=== PATIENT | female | born 1960 | race Caucasian/White ===

== ENCOUNTER 2019-03-14 19:26 | Inpatient (IN) ==
[2019-03-14] MEDS ORDERED: ALBUT/IPRATROP 3MG/0.5MG NEB 3 ML VIAL NEB ONE (19:37)
--- NOTE | 2019-03-14 20:30 | XRay Report ---
XR chest 1V portable CLINICAL HISTORY: Difficult chest pain COMPARISON STUDY: 03/13/2019 FINDINGS: The heart remains enlarged. There is mild elevation of the interstitium, similar to prior s tudies suggesting mild chronic pulmonary vascular congestion. There is no lobar consolidation.[ No si gnificant pleural effusions are visualized IMPRESSION: Cardiomegaly and mild chronic pulmonary vascular congestion. No evidence of acute parench ymal consolidation. Electronically signed by: Abner Tiwari M.D. 03/14/2019 8:27 PM
[2019-03-14 20:32] LABS: Basophils # (auto) 0.02 K/uL (0-0.2); Basophils % (auto) 0.3 %; Eosinophils # (auto) 0.18 K/uL (0-0.5); Eosinophils % (auto) 2.6 %; Hematocrit (blood only) 42.2 % (37-47); Hemoglobin 12.7 g/dL (12.0-16.0); Immature Granulocytes # (auto) 0.02 K/uL (0.00-0.02); Immature Granulocytes % (auto) 0.3 %; Lymphocytes # (auto) 0.58 K/uL (1.2-3.4); Lymphocytes % (auto) 8.4 %; Mean Corpuscular Hgb Conc 30.1 g/dL (32-36); Mean Corpuscular Volume 93.4 fL (80-100); Mean Platelet Volume 10.1 fL (7.4-10.4); Monocytes % (auto) 5.8 %; Neutrophils # (auto) 5.74 K/uL (1.4-6.5); Neutrophils % (auto) 82.6 %; Platelet Count 176 K/uL (130-400); RDW Coefficient of Variation 14.5 % (11.5-14.5); RDW Standard Deviation 49.4 fL (36.4-46.3); Red Blood Count 4.52 M/uL (4.2-5.4); White Blood Count 6.94 K/uL (4.8-10.8)
[2019-03-14 20:33] LABS: HCO3 ABG 42 mmol/L (19-24); Oxygen Saturation ABG 97.2 % (90-95); PCO2 ABG 91 mmHg (35-46); PO2 ABG 107 mm/Hg (80-95); pH ABG 7.29 (7.35-7.45)
[2019-03-14 20:35] LABS: Allen Test POS (Pos)
[2019-03-14 20:43] LABS: Appearance Urine Clear (Clear); Bilirubin Urine Negative (Negative); Blood Urine Negative (Negative); Color Urine Yellow; Glucose Urine UA Negative (Negative); Ketones Urine Negative (Negative); Leukocyte Esterase Urine Negative (Negative); Nitrite Urine Negative (Negative); Protein Urine Negative (Negative); Specific Gravity Urine 1.013 (1.000-1.030); Urobilinogen Urine Negative (Negative)
[2019-03-14] MEDS ORDERED: methylPREDNISolone 125 MG/2 ML VIAL IV STA (20:43)
[2019-03-14] MEDS ORDERED: MAGNESIUM SULFATE / D5W 1 GM/100 ML BAG IV ONE (20:43)
[2019-03-14] MEDS ORDERED: FUROSEMIDE 40 MG/4 ML VIAL IV STA (20:44)
[2019-03-14 20:45] LABS: Alanine Aminotransferase 12 U/L (12-78); Albumin Level 2.6 gm/dl (3.4-5.0); Anion Gap 0 (3-11); Aspartate Aminotransferase 10 U/L (15-37); BUN Creatinine Ratio 12.6 (10-20); Blood Urea Nitrogen 10 mg/dl (7-18); Calcium 8.3 mg/dl (8.5-10.1); Carbon Dioxide 40 mmol/L (21-32); Chloride 98 mmol/L (98-107); Est GFR (African American) 97.3; Est GFR (Non-African American) 83.9; Glucose 163 mg/dl (70-99); Potassium 4.1 mmol/L (3.5-5.1); Sodium 138 mmol/L (136-145)
[2019-03-14 20:47] LABS: Prothrombin Time 10.1 Seconds (9.0-12.0)
[2019-03-14 20:50] LABS: Albumin Globulin Ratio 0.6 (0.9-2); Alkaline Phosphatase 159 U/L (45-117); Bilirubin,Total 0.4 mg/dl (0.2-1); Creatine Kinase 25 U/L (26-192); Creatine Kinase MB < 1.0 ng/ml (0.5-3.6); Globulin 4.1 gm/dl (2.5-4.0); Total Protein 6.7 gm/dl (6.4-8.2); Troponin I < 0.015 ng/ml (0-0.045)
--- NOTE | 2019-03-15 00:25 | Emergency Department Note ---
Entered by Krista Bañuelos acting as a scribe for History of Present Illness General Chief complaint: Lethargic Stated complaint: seizure Source: patient Mode of arrival: EMS History of Present Illness Onset (ago): unknown (TERADATA ARCHITECT) Location: left and right (generalized) Pain Consistency: + now resolved Quality: + other (shaking) Associated symptoms: + shortness of breath The patient is a 58 year old female who presents to the Emergency Room with complaints of a resolved episode of shaking that occurred TERADATA ARCHITECT. The patient thinks she was having a seizure. She also complains of shortness of breath. The patient does not normally wear oxygen but her O2 sat was 85% upon arrival of EMS. Home Medications Home Medications Medication Instructions Recorded Confirmed Type metoprolol tartrate 50 mg tablet 50 mg PO DAILY tab 06/26/18 03/14/19 History ondansetron HCl 4 mg tablet 4 mg PO Q6H PRN tab 06/26/18 03/14/19 History phenytoin sodium extended 100 mg 200 mg PO .q am cap 06/26/18 03/14/19 History capsule phenytoin sodium extended 100 mg 300 mg PO .q pm cap 06/26/18 03/14/19 History capsule topiramate 100 mg tablet 100 mg PO .q am tab 06/26/18 03/14/19 History topiramate 200 mg tablet 200 mg PO .q hs tab 06/26/18 03/14/19 History metformin 500 mg tablet 500 mg PO BID 12/04/18 03/14/19 History ciprofloxacin 500 mg tablet 500 mg PO BID #60 tab 01/04/19 03/14/19 Rx aspirin [Aspir-81] 81 mg PO DAILY 03/13/19 03/14/19 History furosemide [Lasix] 40 mg PO QAM 03/13/19 03/14/19 History nystatin 1 appln TOP QID #15 gm 03/13/19 03/14/19 Rx Allergies Allergy/AdvReac Type Severity Reaction Status Date / Time ceftaroline fosamil Allergy Mild ITCHING Verified 03/12/19 11:03 HANDS latex Allergy Mild Verified 03/12/19 11:03 SABINE Inhibitors Allergy Unknown Verified 03/12/19 11:03 codeine Allergy Unknown Verified 03/12/19 11:03 erythromycin base Allergy Unknown Verified 03/12/19 11:03 Iodinated Contrast- Oral and Allergy Unknown ` Verified 03/12/19 11:03 IV Dye Penicillins AdvReac Mild MAKES HER Verified 03/12/19 11:03 "FUNNY IN THE HEAD" Past Med/Surg History Medical History MSSA (methicillin susceptible Staphylococcus aureus) (Acute) ASCVD (arteriosclerotic cardiovascular disease) (Chronic) Asthma (Chronic) Cardiomyopathy (Chronic) Cellulitis (Chronic) Cor pulmonale (Chronic) Diabetes 1.5, managed as type 2 (Chronic) Diverticulosis (Chronic) Encephalopathy (Chronic) GERD (gastroesophageal reflux disease) (Chronic) Hyperlipidemia LDL goal <100 (Chronic) Left bundle branch block (LBBB) (Chronic) Lymphedema (Chronic) Obesity (Chronic) Rectal polyp (Chronic) Seizure (Chronic) Sleep apnea (Chronic) Systolic CHF (Chronic) Thyroid nodule (Chronic) Tubal ligation status (Chronic) Surgical History H/O sinus surgery (Chronic) Social History Feels Safe at Home: Yes Smoking Status: Never smoker Review of Systems See HPI for pertinent positives & negatives. and A total of 10 systems reviewed and were otherwise negative Physical Exam Vital Signs Vital Signs - 24 hr 03/14/19 19:38 03/14/19 19:51 03/14/19 20:05 Temperature 36.4 C L Temperature Source Oral Sepsis Recent Fever Within 48 Hours No Sepsis New/Unexplained Change in Mental Status No Sepsis Action Taken by Nursing No Action Required Pulse Rate 69 64 Pulse Rate [Apical] Pulse Rate from SpO2 Sensor Pulse Rhythm Regular Regular Pulse Strength Normal Respiratory Rate 20 22 18 Respiratory Effort / Characteristics Non-Labored Spontaneous Non-Labored Spontaneous Respiratory Depth Normal Respiratory Pattern Regular Blood Pressure 147/52 H Blood Pressure [Right Arm] Blood Pressure Mean 83 Blood Pressure Mean [Right Arm] Blood Pressure Position Sitting Pulse Oximetry 100 100 100 Oxygen Delivery Method Nasal Cannula Nasal Cannula Nasal Cannula Oxygen Flow Rate 2 2 3 Fraction of Inspired Oxygen 03/14/19 21:05 03/14/19 21:41 03/14/19 22:00 Temperature Temperature Source Sepsis Recent Fever Within 48 Hours Sepsis New/Unexplained Change in Mental Status Sepsis Action Taken by Nursing Pulse Rate 83 Pulse Rate [Apical] 83 86 Pulse Rate from SpO2 Sensor Pulse Rhythm Pulse Strength Respiratory Rate 18 23 22 Respiratory Effort / Characteristics Non-Labored Spontaneous Respiratory Depth Shallow Respiratory Pattern Regular Blood Pressure Blood Pressure [Right Arm] 152/80 H Blood Pressure Mean Blood Pressure Mean [Right Arm] 104 Blood Pressure Position Pulse Oximetry 100 98 98 Oxygen Delivery Method Nebulizer Nasal Cannula Oxygen Flow Rate 2 Fraction of Inspired Oxygen 35 03/14/19 22:01 03/14/19 23:01 03/14/19 23:36 Temperature Temperature Source Sepsis Recent Fever Within 48 Hours Sepsis New/Unexplained Change in Mental Status Sepsis Action Taken by Nursing Pulse Rate 88 91 H 90 Pulse Rate [Apical] Pulse Rate from SpO2 Sensor 89 91 H Pulse Rhythm Pulse Strength Respiratory Rate 20 17 17 Respiratory Effort / Characteristics Non-Labored Spontaneous Respiratory Depth Normal Respiratory Pattern Regular Blood Pressure 164/89 H Blood Pressure [Right Arm] Blood Pressure Mean 114 138 Blood Pressure Mean [Right Arm] Blood Pressure Position Pulse Oximetry 98 96 93 Oxygen Delivery Method BiPAP BiPAP Oxygen Flow Rate Fraction of Inspired Oxygen 35 03/15/19 00:01 Temperature Temperature Source Sepsis Recent Fever Within 48 Hours Sepsis New/Unexplained Change in Mental Status Sepsis Action Taken by Nursing Pulse Rate 89 Pulse Rate [Apical] Pulse Rate from SpO2 Sensor 89 Pulse Rhythm Pulse Strength Respiratory Rate 14 Respiratory Effort / Characteristics Respiratory Depth Respiratory Pattern Blood Pressure 147/74 H Blood Pressure [Right Arm] Blood Pressure Mean 98 Blood Pressure Mean [Right Arm] Blood Pressure Position Pulse Oximetry 94 Oxygen Delivery Method BiPAP Oxygen Flow Rate Fraction of Inspired Oxygen GENERAL: Awake, alert, well-appearing, in no acute distress HENT: Normocephalic, atraumatic. Oropharynx unremarkable. EYES: Normal conjunctiva. Sclera non-icteric. NECK: Supple. No nuchal rigidity. FROM. No JVD. RESPIRATORY: Clear to auscultation. Distant lung sounds. CARDIAC: Regular rate, normal rhythm. Extremities warm and well perfused. Pulses equal. ABDOMEN: Morbidly obese. Soft, non-distended. No tenderness to palpation. No rebound or guarding. No masses. RECTAL: Deferred. MUSCULOSKELETAL: Chest examination reveals no tenderness. The back is symmetrical on inspection without obvious abnormality. There is no CVA tenderness to palpation. No joint edema. LOWER EXTREMITIES: Calves are equal size bilaterally and non-tender. No edema. No discoloration. NEURO: Normal sensorium. No sensory or motor deficits noted. SKIN: No rash or jaundice noted. Yeast like rash bilaterally underneath breasts. Course 1934: Past medical records reviewed. The patient was evaluated in room B12B. A complete history and physical exam was performed. 2144: I discussed the patient's case with Dr. Conroy, [facility] Hospitalist. He agrees to evaluate the patient for further management and care. Consultations Consultation #1: I discussed the patient's case with Dr. Conroy [facility] Hospitalist. He agrees to evaluate the patient for further management and care. Time: 21:45 Administered Medications Discontinued Medications Albuterol (Duoneb) 12 ml NEB ONE ONE Stop: 03/14/19 19:38 Last Admin: 03/14/19 20:02 Dose: 12 ml Documented by: [id number] Furosemide (Lasix) 40 mg IV NOW STA Stop: 03/14/19 20:45 Last Admin: 03/14/19 20:57 Dose: 40 mg Documented by: [id number] Magnesium Sulfate/Dextrose (Magnesium Sulfate / D5w) 1 gm in 100 mls @ 100 mls/hr IV ONE ONE Stop: 03/14/19 21:42 Last Infusion: 03/14/19 21:57 Dose: 0 mls/hr Documented by: [id number] Admin: 03/14/19 20:57 Dose: 100 mls/hr Documented by: [id number] Methylprednisolone (Solumedrol) 125 mg IV NOW STA Stop: 03/14/19 20:44 Last Admin: 03/14/19 20:57 Dose: 125 mg Documented by: [id number] Medical Decision Making Differential Diagnosis Etiologies such as infections, reactive airway disease, pneumonia, pneumothorax, COPD, CHF, cardiac ischemia, pulmonary embolism, musculoskeletal, gastrointestinal, as well as others were entertained. Medical Records Attestation: I reviewed the patient's medical records. Home Medications Current Medication List: was personally reviewed by me Laboratory Data Attestation: I reviewed the patient's lab results. Result diagrams: 03/14/19 20:15 03/14/19 20:15 Lab Results 03/14/19 03/14/19 03/14/19 Range/Units 19:50 20:15 20:15 WBC 6.94 (4.8-10.8) K/uL RBC 4.52 (4.2-5.4) M/uL Hgb 12.7 (12.0-16.0) g/dL Hct 42.2 (37-47) % MCV 93.4 (80-100) fL MCH 28.1 (25-34) pg MCHC 30.1 L (32-36) g/dL RDW Std Deviation 49.4 H (36.4-46.3) fL RDW Coeff of Ewa 14.5 (11.5-14.5) % Plt Count 176 (130-400) K/uL MPV 10.1 (7.4-10.4) fL Immature Gran % (Auto) 0.3 % Neut % (Auto) 82.6 % Lymph % (Auto) 8.4 % Brown % (Auto) 5.8 % Eos % (Auto) 2.6 % Baso % (Auto) 0.3 % Immature Gran # (Auto) 0.02 (0.00-0.02) K/uL Neut # (Auto) 5.74 (1.4-6.5) K/uL Lymph # (Auto) 0.58 L (1.2-3.4) K/uL Brown # (Auto) 0.40 (0.11-0.59) K/uL Eos # (Auto) 0.18 (0-0.5) K/uL Baso # (Auto) 0.02 (0-0.2) K/uL PT (9.0-12.0) Seconds INR (0.9-1.1) ABG pH 7.29 L (7.35-7.45) ABG pCO2 91 H (35-46) mmHg ABG pO2 107 H (80-95) mm/Hg ABG HCO3 42 H (19-24) mmol/L ABG O2 Saturation 97.2 H (90-95) % ABG Base Excess 11.5 H (-9-1.8) mEq/L [place] Test POS (Pos) Barometric Pressure 728.6 mm/Hg Oxygen Given 100% O2 Sodium (136-145) mmol/L Potassium (3.5-5.1) mmol/L Chloride (98-107) mmol/L Carbon Dioxide (21-32) mmol/L Anion Gap (3-11) BUN (7-18) mg/dl Creatinine (0.6-1.2) mg/dl Est Cr Clr Drug Dosing ml/min Est GFR ( Amer) Est GFR (Non-Af Amer) BUN/Creatinine Ratio (10-20) Glucose (70-99) mg/dl Calcium (8.5-10.1) mg/dl Total Bilirubin (0.2-1) mg/dl AST (15-37) U/L ALT (12-78) U/L Alkaline Phosphatase (45-117) U/L Total Creatine Kinase (26-192) U/L CK-MB (CK-2) (0.5-3.6) ng/ml CK/CKMB % Calc Troponin I (0-0.045) ng/ml Total Protein (6.4-8.2) gm/dl Albumin (3.4-5.0) gm/dl Globulin (2.5-4.0) gm/dl Albumin/Globulin Ratio (0.9-2) Lipase (73-393) U/L Urine Color Yellow Urine Appearance Clear (Clear) Urine pH 5.0 (4.5-7.5) Ur Specific [place] 1.013 (1.000-1.030) Urine Protein Negative (Negative) Urine Glucose (UA) Negative (Negative) Urine Ketones Negative (Negative) Urine Blood Negative (Negative) Urine Nitrite Negative (Negative) Urine Bilirubin Negative (Negative) Urine Urobilinogen Negative (Negative) Ur Leukocyte Esterase Negative (Negative) 03/14/19 03/14/19 Range/Units 20:15 20:15 WBC (4.8-10.8) K/uL RBC (4.2-5.4) M/uL Hgb (12.0-16.0) g/dL Hct (37-47) % MCV (80-100) fL MCH (25-34) pg MCHC (32-36) g/dL RDW Std Deviation (36.4-46.3) fL RDW Coeff of Ewa (11.5-14.5) % Plt Count (130-400) K/uL MPV (7.4-10.4) fL Immature Gran % (Auto) % Neut % (Auto) % Lymph % (Auto) % Brown % (Auto) % Eos % (Auto) % Baso % (Auto) % Immature Gran # (Auto) (0.00-0.02) K/uL Neut # (Auto) (1.4-6.5) K/uL Lymph # (Auto) (1.2-3.4) K/uL Brown # (Auto) (0.11-0.59) K/uL Eos # (Auto) (0-0.5) K/uL Baso # (Auto) (0-0.2) K/uL PT 10.1 (9.0-12.0) Seconds INR 1.0 (0.9-1.1) ABG pH (7.35-7.45) ABG pCO2 (35-46) mmHg ABG pO2 (80-95) mm/Hg ABG HCO3 (19-24) mmol/L ABG O2 Saturation (90-95) % ABG Base Excess (-9-1.8) mEq/L [place] Test (Pos) Barometric Pressure mm/Hg Oxygen Given Sodium 138 (136-145) mmol/L Potassium 4.1 (3.5-5.1) mmol/L Chloride 98 (98-107) mmol/L Carbon Dioxide 40 H (21-32) mmol/L Anion Gap 0 L (3-11) BUN 10 (7-18) mg/dl Creatinine 0.77 (0.6-1.2) mg/dl Est Cr Clr Drug Dosing 73.0 ml/min Est GFR ( Amer) 97.3 Est GFR (Non-Af Amer) 83.9 BUN/Creatinine Ratio 12.6 (10-20) Glucose 163 H (70-99) mg/dl Calcium 8.3 L (8.5-10.1) mg/dl Total Bilirubin 0.4 (0.2-1) mg/dl AST 10 L (15-37) U/L ALT 12 (12-78) U/L Alkaline Phosphatase 159 H (45-117) U/L Total Creatine Kinase 25 L (26-192) U/L CK-MB (CK-2) < 1.0 (0.5-3.6) ng/ml CK/CKMB % Calc TNP Troponin I < 0.015 (0-0.045) ng/ml Total Protein 6.7 (6.4-8.2) gm/dl Albumin 2.6 L (3.4-5.0) gm/dl Globulin 4.1 H (2.5-4.0) gm/dl Albumin/Globulin Ratio 0.6 L (0.9-2) Lipase 120 (73-393) U/L Urine Color Urine Appearance (Clear) Urine pH (4.5-7.5) Ur Specific [place] (1.000-1.030) Urine Protein (Negative) Urine Glucose (UA) (Negative) Urine Ketones (Negative) Urine Blood (Negative) Urine Nitrite (Negative) Urine Bilirubin (Negative) Urine Urobilinogen (Negative) Ur Leukocyte Esterase (Negative) Imaging Data Radiologist's Impression: Radiology results as stated below per my review and the radiologist's interpretation: XR chest 1V portable CLINICAL HISTORY: Difficult chest pain COMPARISON STUDY: 03/13/2019 FINDINGS: The heart remains enlarged. There is mild elevation of the interstitium, similar to prior studies suggesting mild chronic pulmonary vascular congestion. There is no lobar consolidation.[ No significant pleural effusions are visualized IMPRESSION: Cardiomegaly and mild chronic pulmonary vascular congestion. No evidence of acute parenchymal consolidation. Electronically signed by: Abner Tiwari M.D. 03/14/2019 8:27 PM ECG Data Attestation: I personally reviewed and interpreted this ECG as follows: Indication: SOB/dyspnea Rate (beats per minute): 64 Rhythm: normal sinus Findings: + LBBB; no ST depression and no ST elevation Comparison ECG Date: from (03/13/19) Change: no significant change Blood Pressure Blood Pressure Findings: Elevated blood pressure Blood Pressure Disposition: further management by hospitalist DIPIKA Lomeli This is a 58-year-old female with hypoventilatory syndrome who left AGAINST MEDICAL ADVICE yesterday who now returns to the emergency department again hypoxic. I strongly recommended to the patient that Chavez catheter be placed. In addition she was given an hour-long breathing treatment here in the emergency department. Because the patient will consent to being admitted today I feel she can be started on steroids and was given Solu-Medrol here in the emergency department. Because the patient's CO2 level has increased greatly since yesterday and ABG was obtained. The decision was made to place the patient on BiPAP to avoid intubating her. Both patient and family were in agreement with the treatment plan. Impression & Plan Hypoxia Critical Care Time I have personally spent greater than 30 minutes of critical care time in the direct management of this patient. This includes bedside care, interpretation of diagnostic studies, and testing, discussion with consultants, patient, and family members, and other required patient management activities. This 30 minutes is in excess of all separately billable procedures. Discharge Plan Visit Data Chief Complaint: Lethargic Stated Complaint: seizure ED Provider: Micky Martinez Discharge Problem: Hypoxia Patient Disposition: Being Evaluated by Hospitalist Forms Stand Alone Forms: My [facility] Prescriptions Prescriptions: No Action metoprolol tartrate 50 mg tablet 50 mg PO DAILY RF: 0 ondansetron HCl [Zofran] 4 mg tablet 4 mg PO Q6H PRN (Reason: Nausea) RF: 0 phenytoin sodium extended [Dilantin Kapseal] 100 mg capsule 300 mg PO .q pm RF: 0 phenytoin sodium extended [Dilantin Kapseal] 100 mg capsule 200 mg PO .q am RF: 0 topiramate [Topamax] 100 mg tablet 100 mg PO .q am RF: 0 topiramate [Topamax] 200 mg tablet 200 mg PO .q hs RF: 0 metformin 500 mg tablet 500 mg PO BID RF: 0 ciprofloxacin HCl [Cipro] 500 mg tablet 500 mg PO BID Qty: 60 RF: 1 furosemide [Lasix] 40 mg Tablet 40 mg PO QAM RF: 0 aspirin [Aspir-81] 81 mg Tablet,Delayed Release (Dr/Ec) 81 mg PO DAILY RF: 0 nystatin 100,000 unit/gram powder 1 appln TOP QID Qty: 15 RF: 0 Referrals Referrals: PCP,NO [Primary Care Provider] - The scribe's documentation has been prepared under my direction and personally reviewed by me in its entirety. I confirm that the note above accurately reflects all work, treatment, procedures, and medical decision making performed by me.
--- NOTE | 2019-03-15 01:26 | History & Physical Report ---
Date of Service March 15, 2019 Assessment & Plan (1) Acute on chronic respiratory failure with hypoxia and hypercapnia: 58-year-old female was admitted on 15 Mar 2018 for shortness of breath and acute on chronic hypoxic respiratory failure. Acute on chronic hypoxic respiratory failure: Reported history of same. Patient and family seem unaware of details but note noncompliance with home oxygen and CPAP use. Only acutely available pulmonary note from 2016 mentions history of acute on chronic hypoxic/hypercapnic respiratory failure in the setting of chronic wounds and untreated sleep apnea. Most recent concern for seizure was "in her sleep". Perhaps this was due to hypoxia. Has a history of asthma but is not presently on any inhalers. She was seen in the ED yesterday for similar issues, refused admission at that time, but agrees to being admitted today. - On arrival, afebrile, not tachycardic, borderline tachypnea, with some hypertension. Initial SpO2 was 100% on 2 L nasal cannula. WBC 6. BMP notable for elevated bicarbonate and glucose. No anion gap. UA negative. EKG (yesterday) was NSR, rate 73, with a left BBB. Troponin negative. pCXR positive for mild chronic pulmonary vascular congestion and cardiomegaly without acute consolidation. ABG noted pH of 7.29, CO2 91, bicarb 42, pO2 107. - In the ED she was treated with Lasix 40 mg, magnesium 1 g, Solu-Medrol 125 mg, and DuoNeb x1. Placed on BiPAP. - At time of H&P, patient remained in the BiPAP with HR 89, SpO2 93% on BiPAP 12 / 6 / 35%. - Will check a dilantin level. Continue BiPAP for now. Recheck VBG with AM labs. Ongoing medical issues: - CAD, cardiomyopathy, cor pulmonale, HTN, HLD, left BBB, systolic CHF: See HPI. Continue metoprolol, Lasix. - History of seizures: Continue home phenytoin, Topamax. - Chronic venous insufficiency, bilateral venous stasis ulcer: Sees wound care chronically, last visit on 13May. - Elevated alk phos: Admit BP 159, similar prior. Remaining LFTs okay. - DM2: At home is on metformin. No known last Hb A1c. Random glucose here 163. --- Held home metformin. Will put on sliding scale here. Code status: Full code. Diet: Heart healthy. DVT prophy: Lovenox. PT/OT: Ordered. Disbo: Admit to PCU. Case management consulted. (2) ASCVD (arteriosclerotic cardiovascular disease): (3) Cardiomyopathy: (4) Cor pulmonale: (5) HTN (hypertension): (6) HLD (hyperlipidemia): (7) Left bundle branch block: (8) Systolic congestive heart failure: (9) Seizure: (10) Venous stasis ulcers of both lower extremities: (11) Elevated alkaline phosphatase level: (12) DM type 2 (diabetes mellitus, type 2): History of Present Illness Primary Care Provider: NO PCP 58-year-old female was brought in by EMS for concerns for difficulty breathing. Of note, patient was seen in the ED yesterday for similar symptoms. See related note. At that time she left AGAINST MEDICAL ADVICE. - At time of this H&P, patient is breathing relatively comfortably on BiPAP. She does not contribute anything to her history but will primarily nod her head yes or no to questions. She says that her breathing has improved since arrival, she denies any present chest pain or shortness of breath, and shakes her head "no" when asked if any other concerns. - In the room with her is her boyfriend, son, and son's girlfriend. They give a varying history of concerns with seizure-like activity both yesterday and today. This apparent seizure activity was unwitnessed and per the patient's account to them earlier in the day. When asked to clarify, the patient says it happened "during my sleep". The patient's son says that she normally is not on oxygen regularly but that "she put herself back on it" 3 days ago. Her son seemed unaware she had a CPAP machine at home but the boyfriend says that she does, however that she does not use it. - Her sons girlfriend relates the following information: She says yesterday she found the patient working harder to breathe at home. She put a pulse ox on the patient's finger and noted that her heart rate was in the 50s and her room saturation was in the 50s as well. She then applied the patient's home oxygen which brought her oxygen saturation up to the 90s. The girlfriend then decided to run experiment and take her off of the oxygen. She says that the patient's oxygen level dropped to the high 80s within a couple of minutes, so they reapplied the oxygen and the SpO2 again improved. --- Past medical history includes CAD, asthma, cardiomyopathy, COPD, cor pulmonale, diverticulosis, type 2 diabetes, GERD, hypertension, hyperlipidemia, left bundle branch block, lymphedema, MSSA septicemia, obesity, pulmonary embolism, seizure, sleep apnea, systolic congestive heart failure. --- Past surgical history includes sinus surgery, hysterectomy, tubal ligation, rectal polypectomy, D&C. --- Social history includes living with her boyfriend at home. Allergies Allergy/AdvReac Type Severity Reaction Status Date / Time ceftaroline fosamil Allergy Mild ITCHING Verified 03/12/19 11:03 HANDS latex Allergy Mild Verified 03/12/19 11:03 SABINE Inhibitors Allergy Unknown Verified 03/12/19 11:03 codeine Allergy Unknown Verified 03/12/19 11:03 erythromycin base Allergy Unknown Verified 03/12/19 11:03 Iodinated Contrast- Oral and Allergy Unknown ` Verified 03/12/19 11:03 IV Dye Penicillins AdvReac Mild MAKES HER Verified 03/12/19 11:03 "FUNNY IN THE HEAD" Home Medications Home Medications Medication Instructions Recorded Confirmed Type metoprolol tartrate 50 mg tablet 50 mg PO DAILY tab 06/26/18 03/14/19 History ondansetron HCl 4 mg tablet 4 mg PO Q6H PRN tab 06/26/18 03/14/19 History phenytoin sodium extended 100 mg 200 mg PO .q am cap 06/26/18 03/14/19 History capsule phenytoin sodium extended 100 mg 300 mg PO .q pm cap 06/26/18 03/14/19 History capsule topiramate 100 mg tablet 100 mg PO .q am tab 06/26/18 03/14/19 History topiramate 200 mg tablet 200 mg PO .q hs tab 06/26/18 03/14/19 History metformin 500 mg tablet 500 mg PO BID 12/04/18 03/14/19 History ciprofloxacin 500 mg tablet 500 mg PO BID #60 tab 01/04/19 03/14/19 Rx aspirin [Aspir-81] 81 mg PO DAILY 03/13/19 03/14/19 History furosemide [Lasix] 40 mg PO QAM 03/13/19 03/14/19 History nystatin 1 appln TOP QID #15 gm 03/13/19 03/14/19 Rx Past Med/Surg History Medical History MSSA (methicillin susceptible Staphylococcus aureus) (Acute) ASCVD (arteriosclerotic cardiovascular disease) (Chronic) Asthma (Chronic) Cardiomyopathy (Chronic) Cellulitis (Chronic) Cor pulmonale (Chronic) Diabetes 1.5, managed as type 2 (Chronic) Diverticulosis (Chronic) Encephalopathy (Chronic) GERD (gastroesophageal reflux disease) (Chronic) Hyperlipidemia LDL goal <100 (Chronic) Left bundle branch block (LBBB) (Chronic) Lymphedema (Chronic) Obesity (Chronic) Rectal polyp (Chronic) Seizure (Chronic) Sleep apnea (Chronic) Systolic CHF (Chronic) Thyroid nodule (Chronic) Tubal ligation status (Chronic) Surgical History H/O sinus surgery (Chronic) Social History Preferred Language: Faroese Communication Ability: Effective 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 BiPAP in place. Physical Exam Physical Exam: GENERAL: Awake, alert, appears chronically unwell and morbidly obese, BiPAP in place, but does not appear in the immediate distress. HENT: Normocephalic, atraumatic. EYES: Normal conjunctiva. Sclera non-icteric. NECK: Inspection normal. CARDIAC: +S1S2 RRR, no murmurs. RESPIRATORY: Limited by habitus, though perhaps faint rales at the bases. BiPAP in place. GI: +BS, soft, morbid obesity limiting exam. No tenderness to palpation. NEURO: No gross neuro deficits, though she does not spontaneously move her arms or legs. EXTREMITIES: Her bilateral lower extremity wounds are currently dressed, c/d/i. Per wound care appointment on 12Mar2019: --- Wound #1 of the right lower extremity measures 20 x 24 x 0.1 cm in size. No change in size since last visit. Wounds are noted to be significantly stopper setter with less drainage than previous visit. Wound base is erythematous. No odor present. Periwound is inflamed, but intact. --- Wound #2 of the left lower extremity measures 15 x 20 x 0.1 cm in size. No change in size since last visit. Wounds to the left leg are noted to be stopper setter as well on the medial portion of the leg. The lateral portion continues to drain a large amount of serous fluid. Periwound is inflamed, but intact. Results & Data Vital Signs (Past 12 Hours) Vital Signs Temp Pulse Pulse Resp BP BP Pulse Ox 03/15/19 01:11 92 H 23 132/77 96 03/15/19 00:01 89 14 147/74 H 94 03/14/19 23:36 90 17 93 03/14/19 23:01 91 H 17 96 03/14/19 22:01 88 20 164/89 H 98 03/14/19 22:00 83 22 98 03/14/19 21:41 86 23 98 03/14/19 21:05 83 18 152/80 H 100 03/14/19 20:05 18 100 03/14/19 19:51 36.4 C L 64 22 147/52 H 100 03/14/19 19:38 69 20 100 Laboratory Results 03/14/19 03/14/19 03/14/19 Range/Units 20:15 20:15 20:15 WBC 6.94 (4.8-10.8) K/uL RBC 4.52 (4.2-5.4) M/uL Hgb 12.7 (12.0-16.0) g/dL Hct 42.2 (37-47) % MCV 93.4 (80-100) fL MCH 28.1 (25-34) pg MCHC 30.1 L (32-36) g/dL RDW Std Deviation 49.4 H (36.4-46.3) fL RDW Coeff of Ewa 14.5 (11.5-14.5) % Plt Count 176 (130-400) K/uL MPV 10.1 (7.4-10.4) fL Immature Gran % (Auto) 0.3 % Neut % (Auto) 82.6 % Lymph % (Auto) 8.4 % Lyman % (Auto) 5.8 % Eos % (Auto) 2.6 % Baso % (Auto) 0.3 % Immature Gran # (Auto) 0.02 (0.00-0.02) K/uL Neut # (Auto) 5.74 (1.4-6.5) K/uL Lymph # (Auto) 0.58 L (1.2-3.4) K/uL Lyman # (Auto) 0.40 (0.11-0.59) K/uL Eos # (Auto) 0.18 (0-0.5) K/uL Baso # (Auto) 0.02 (0-0.2) K/uL PT 10.1 (9.0-12.0) Seconds INR 1.0 (0.9-1.1) ABG pH (7.35-7.45) ABG pCO2 (35-46) mmHg ABG pO2 (80-95) mm/Hg ABG HCO3 (19-24) mmol/L ABG O2 Saturation (90-95) % ABG Base Excess (-9-1.8) mEq/L [place] Test (Pos) Barometric Pressure mm/Hg Oxygen Given Sodium 138 (136-145) mmol/L Potassium 4.1 (3.5-5.1) mmol/L Chloride 98 (98-107) mmol/L Carbon Dioxide 40 H (21-32) mmol/L Anion Gap 0 L (3-11) BUN 10 (7-18) mg/dl Creatinine 0.77 (0.6-1.2) mg/dl Est Cr Clr Drug Dosing 73.0 ml/min Est GFR ( Amer) 97.3 Est GFR (Non-Af Amer) 83.9 BUN/Creatinine Ratio 12.6 (10-20) Glucose 163 H (70-99) mg/dl Calcium 8.3 L (8.5-10.1) mg/dl Total Bilirubin 0.4 (0.2-1) mg/dl AST 10 L (15-37) U/L ALT 12 (12-78) U/L Alkaline Phosphatase 159 H (45-117) U/L Total Creatine Kinase 25 L (26-192) U/L CK-MB (CK-2) < 1.0 (0.5-3.6) ng/ml CK/CKMB % Calc TNP Troponin I < 0.015 (0-0.045) ng/ml Total Protein 6.7 (6.4-8.2) gm/dl Albumin 2.6 L (3.4-5.0) gm/dl Globulin 4.1 H (2.5-4.0) gm/dl Albumin/Globulin Ratio 0.6 L (0.9-2) Lipase 120 (73-393) U/L Urine Color Urine Appearance (Clear) Urine pH (4.5-7.5) Ur Specific [place] (1.000-1.030) Urine Protein (Negative) Urine Glucose (UA) (Negative) Urine Ketones (Negative) Urine Blood (Negative) Urine Nitrite (Negative) Urine Bilirubin (Negative) Urine Urobilinogen (Negative) Ur Leukocyte Esterase (Negative) 03/14/19 03/14/19 Range/Units 20:15 19:50 WBC (4.8-10.8) K/uL RBC (4.2-5.4) M/uL Hgb (12.0-16.0) g/dL Hct (37-47) % MCV (80-100) fL MCH (25-34) pg MCHC (32-36) g/dL RDW Std Deviation (36.4-46.3) fL RDW Coeff of Ewa (11.5-14.5) % Plt Count (130-400) K/uL MPV (7.4-10.4) fL Immature Gran % (Auto) % Neut % (Auto) % Lymph % (Auto) % Lyman % (Auto) % Eos % (Auto) % Baso % (Auto) % Immature Gran # (Auto) (0.00-0.02) K/uL Neut # (Auto) (1.4-6.5) K/uL Lymph # (Auto) (1.2-3.4) K/uL Lyman # (Auto) (0.11-0.59) K/uL Eos # (Auto) (0-0.5) K/uL Baso # (Auto) (0-0.2) K/uL PT (9.0-12.0) Seconds INR (0.9-1.1) ABG pH 7.29 L (7.35-7.45) ABG pCO2 91 H (35-46) mmHg ABG pO2 107 H (80-95) mm/Hg ABG HCO3 42 H (19-24) mmol/L ABG O2 Saturation 97.2 H (90-95) % ABG Base Excess 11.5 H (-9-1.8) mEq/L [place] Test POS (Pos) Barometric Pressure 728.6 mm/Hg Oxygen Given 100% O2 Sodium (136-145) mmol/L Potassium (3.5-5.1) mmol/L Chloride (98-107) mmol/L Carbon Dioxide (21-32) mmol/L Anion Gap (3-11) BUN (7-18) mg/dl Creatinine (0.6-1.2) mg/dl Est Cr Clr Drug Dosing ml/min Est GFR ( Amer) Est GFR (Non-Af Amer) BUN/Creatinine Ratio (10-20) Glucose (70-99) mg/dl Calcium (8.5-10.1) mg/dl Total Bilirubin (0.2-1) mg/dl AST (15-37) U/L ALT (12-78) U/L Alkaline Phosphatase (45-117) U/L Total Creatine Kinase (26-192) U/L CK-MB (CK-2) (0.5-3.6) ng/ml CK/CKMB % Calc Troponin I (0-0.045) ng/ml Total Protein (6.4-8.2) gm/dl Albumin (3.4-5.0) gm/dl Globulin (2.5-4.0) gm/dl Albumin/Globulin Ratio (0.9-2) Lipase (73-393) U/L Urine Color Yellow Urine Appearance Clear (Clear) Urine pH 5.0 (4.5-7.5) Ur Specific [place] 1.013 (1.000-1.030) Urine Protein Negative (Negative) Urine Glucose (UA) Negative (Negative) Urine Ketones Negative (Negative) Urine Blood Negative (Negative) Urine Nitrite Negative (Negative) Urine Bilirubin Negative (Negative) Urine Urobilinogen Negative (Negative) Ur Leukocyte Esterase Negative (Negative) Medications Administered Discontinued Medications Albuterol (Duoneb) 12 ml NEB ONE ONE Stop: 03/14/19 19:38 Last Admin: 03/14/19 20:02 Dose: 12 ml Documented by: [id number] Furosemide (Lasix) 40 mg IV NOW STA Stop: 03/14/19 20:45 Last Admin: 03/14/19 20:57 Dose: 40 mg Documented by: [id number] Magnesium Sulfate/Dextrose (Magnesium Sulfate / D5w) 1 gm in 100 mls @ 100 mls/hr IV ONE ONE Stop: 03/14/19 21:42 Last Infusion: 03/14/19 21:57 Dose: 0 mls/hr Documented by: [id number] Admin: 03/14/19 20:57 Dose: 100 mls/hr Documented by: [id number] Methylprednisolone (Solumedrol) 125 mg IV NOW STA Stop: 03/14/19 20:44 Last Admin: 03/14/19 20:57 Dose: 125 mg Documented by: [id number] Code Status & VTE Plan Code Status Full code VTE Prophylaxis Plan VTE Prophylaxis will be ordered: Yes Supervising Physician Co-Signing Physician Notes Attending addendum: I have physically seen this patient, have supervised the medical residents activities, and agree with the H&P unless as otherwise noted. Assessment and Plan: Acute on chronic respiratory failure with hypoxia and hypercapnia/medical noncompliance-- Patient has not been taking her medications including nebulizers and CPAP at bedtime as directed at home. ABG showed a PCO2 of 91 with a pH of 7.29, which when combined with her recent progressive symptoms, suggest an acute on chronic process. Advised the emergency department to start BiPAP, and recheck ABG in a few hours to monitor her progress. Suspect seizures in her sleep are more closely related to hypoxia, as her pulse ox was measured to be in the 50s at home by family. She did receive Solu-Medrol 125 mg IV in the ED, and would continue at 40 mg IV every 8 hours. She also received furosemide 40 mg IV, will continue at 40 mg IV twice daily. Albumin level of 2.9. May require IV albumin as well. Order echocardiogram and follow serial troponins. Remainder of orders and notations as noted. Resident Activity Tracking Resident Involvement: Resident Care Provided Care Provided: [facility] Medicine
[2019-03-15] MEDS ORDERED: DEXTROSE 50% 50 ML SYRINGE IV PRN (02:51)
[2019-03-15] MEDS ORDERED: CARBOHYDRATES FOR HYPOGLYCEMIA PO PRN (02:51)
[2019-03-15] MEDS ORDERED: GLUCOSE 10 TABS/TUBE PO PRN (02:51)
[2019-03-15] MEDS ORDERED: GLUCOSE 40% GEL 15 GM TUBE PO PRN (02:51)
[2019-03-15] MEDS ORDERED: GLUCAGON FOR INJ 1 MG VIAL SQ PRN (02:51)
[2019-03-15 05:57] LABS: Basophils # (auto) 0.01 K/uL (0-0.2); Basophils % (auto) 0.1 %; Hematocrit (blood only) 42.1 % (37-47); Hemoglobin 12.7 g/dL (12.0-16.0); Immature Granulocytes # (auto) 0.01 K/uL (0.00-0.02); Immature Granulocytes % (auto) 0.1 %; Lymphocytes # (auto) 0.29 K/uL (1.2-3.4); Lymphocytes % (auto) 3.8 %; Mean Corpuscular Hgb Conc 30.2 g/dL (32-36); Mean Corpuscular Volume 92.5 fL (80-100); Mean Platelet Volume 10.3 fL (7.4-10.4); Monocytes # (auto) 0.06 K/uL (0.11-0.59); Monocytes % (auto) 0.8 %; Neutrophils # (auto) 7.17 K/uL (1.4-6.5); Neutrophils % (auto) 95.2 %; Platelet Count 189 K/uL (130-400); RDW Coefficient of Variation 14.2 % (11.5-14.5); Red Blood Count 4.55 M/uL (4.2-5.4); White Blood Count 7.54 K/uL (4.8-10.8)
[2019-03-15 06:04] LABS: Base Excess VBG 13.7 mEq/L; Oxygen Saturation VBG 90.7 %; pH VBG 7.34 (7.36-7.41)
[2019-03-15 06:39] LABS: BUN Creatinine Ratio 11.7 (10-20); Calcium 7.9 mg/dl (8.5-10.1); Creatinine Clr Calc Pharmacy 74.4 ml/min; Est GFR (African American) 82.8; Est GFR (Non-African American) 71.4; Potassium 4.1 mmol/L (3.5-5.1)
[2019-03-15] MEDS: TOPIRAMATE 100 MG TAB PO SCH ×2 (08:10→21:55)
[2019-03-15] MEDS: NYSTATIN POWDER 15GM BTL EXT SCH ×4 (08:11→21:56)
[2019-03-15] MEDS: ENOXAPARIN INJ 40 MG/0.4 ML SYR SQ SCH (08:12)
[2019-03-15] MEDS ORDERED: RAPID SEQUENCE INDUCTION BAG ONE (08:48)
[2019-03-15] MEDS ORDERED: METOPROLOL TARTRATE 50 MG TAB PO SCH (09:00)
[2019-03-15] MEDS ORDERED: ASPIRIN 81 MG ECTAB PO SCH (09:00)
[2019-03-15] MEDS ORDERED: PHENYTOIN SODIUM ER 100 MG CAP PO SCH ×2 (09:00→21:00)
[2019-03-15] MEDS ORDERED: FUROSEMIDE 40 MG TAB PO SCH (09:00)
[2019-03-15] MEDS ORDERED: CIPROFLOXACIN 500 MG TAB PO SCH (09:00)
[2019-03-15 09:05] LABS: iSTAT Allen Test Pass; iSTAT Arterial Blood Gas HCO3 34 meg/L (19-24); iSTAT Arterial Blood Gas pCO2 110 mmHg (35-46); iSTAT Arterial Blood Gas pH 7.11 (7.35-7.45); iSTAT Carbon Dioxide 38 mEq/l (24-31); iSTAT FiO2 100 %; iSTAT Site R Radial
[2019-03-15] MEDS: fentaNYL DRIP 1,250 MCG/250 ML BAG IV SCH (09:30)
[2019-03-15] MEDS ORDERED: MIDAZOLAM HCL 125MG/250ML D5W ONE (09:40)
[2019-03-15 10:00] LABS: Estimated Average Glucose 143 mg/dl; Hemoglobin A1C 6.6 % (4.5-5.6)
[2019-03-15] MEDS ORDERED: PHENYTOIN IV SCH ×3 (10:15→21:00)
[2019-03-15] MEDS ORDERED: SODIUM CHLORIDE 0.9% IV SCH ×3 (10:15→21:00)
[2019-03-15] MEDS: INSULIN ASPART 100 UNITS/ML 3 ML PEN SC SCH ×4 (11:48→23:55)
--- NOTE | 2019-03-15 11:55 | XRay Report ---
XR chest 1V portable CLINICAL HISTORY: confirm NGT and central line placement tube position COMPARISON STUDY: 03/14/2018 FINDINGS: Stable cardiomegaly. Slightly progressive increase in density at the left base possibly ind icative of pleural fluid. Nasogastric tube placed within the stomach. Central catheter in superior vena cava at the juncture wi th the right atrium. No evidence for pneumothorax. IMPRESSION: 1. Central catheter placed in the superior vena cava at the juncture with the right atrium. 2. No evidence for pneumothorax. 3. Nasogastric tube placed within the distal stomach. 4. Increased density left lung base potentially indicative of a developing left effusion versus left basilar consolidative change. 5. Endotracheal tube 2.5 cm above the gabby. The above report was generated using voice recognition software. It may contain grammatical, syntax or spelling errors. Electronically signed by: Jessee Vance M.D. 03/15/2019 11:53 AM
[2019-03-15 14:17] LABS: iSTAT Allen Test Pass; iSTAT Arterial Blood Gas HCO3 34 meg/L (19-24); iSTAT Arterial Blood Gas pCO2 110 mmHg (35-46); iSTAT Arterial Blood Gas pH 7.11 (7.35-7.45); iSTAT Carbon Dioxide 38 mEq/l (24-31); iSTAT FiO2 100 %; iSTAT Site R Radial
--- NOTE | 2019-03-15 14:31 | Procedure Note ---
Procedure Note Date of Service March 15, 2019 Procedure Note Endotracheal intubation Indication: Cardiac arrest, airway protection CODE BLUE was called on this patient. Responded from the emergency department to the floor, room [address] Sheldon from the medicine service along with precision machining instructor and [facility] physician orthopaedic physician assistant were present. Upon my arrival the patient did have return of pulses. Was not protecting her airway. Initial attempted intubation with a 7.5 et tube by the critical care physician orthopaedic physician assistant using glidescope unsuccessful. BVM initiated for desaturation into the 60s. Repositioning on second attempt with the use of 10 mg of etomidate and 10 mg of vecuronium for RSI. I was able to pass a 7.5 ET tube using a glide scope through the vocal cords. Color change and bilateral breath sounds were appreciated though slightly diminished on the left. Tube was removed 2 cm back. Patient was satting well and primary care was continued by Dr. Sheldon with anticipation for ICU placement postarrest. Was a significant amount of vomitus in the airway as well as some swelling of the epiglottis and the airway was quite anterior. No significant complications were appreciated. Coding
[2019-03-15] MEDS ORDERED: AMPICILLIN/SULBACTAM SOD 3,000 MG in 0.9 % SODIUM CHLORIDE 100 ML IV SCH (14:45)
[2019-03-15 14:48] LABS: iSTAT Arterial Blood Gas HCO3 40 meg/L (19-24); iSTAT Arterial Blood Gas pCO2 44 mmHg (35-46); iSTAT Arterial Blood Gas pH 7.56 (7.35-7.45); iSTAT Carbon Dioxide > 40 mEq/l (24-31); iSTAT FiO2 60 %; iSTAT Site R Brachial
--- NOTE | 2019-03-15 15:49 | Critical Care Consultation ---
Date of Consultation March 15, 2019 Assessment & Plan (1) Acute on chronic respiratory failure with hypoxia and hypercapnia: Impression: 1. Acute on chronic hypoxic and hypercapnic respiratory failure. 2. V. fib arrest, etiology likely related to sleep breathing disorder. 3. Seizure disorder, noted by the staff that the patient did have a seizure activity as well. 4. Morbid obesity with obesity hypoventilation syndrome. 5. Chronic wound care. 6. Lymphedema. 7. History of asthma. 8. Obstructive sleep apnea, noncompliance with CPAP. 9. Left bundle branch block, T wave inversion was noted, compared to previous EKG this was a new change. 10. Obtain cardiology consult. 11. Discontinue Dilantin due to QTC of 560. 12. Start Keppra. 13. Hopefully CPAP in the morning. Case discussed with the staff and multiple disciplines, appreciate the input. Critical care time spent with the patient was 45 minutes excluding procedure time. Plan: 1. Continue vent support. 2. Unclear to me that the patient did have a seizure activity or not but agree with increasing the dose of Dilantin. 3. No need for TTM, patient does have neurologic recovery. 4. Resume VAP bundle. 5. DVT and GI prophylaxis. 6. continue Cipro. 7. Decrease the rate on the ventilator. The patient become more alkalotic. 8. Placement of a central line. 9. She may need History of Present Illness Reason for Consultation: Acute respiratory failure and brief cardiac arrest. Requesting Physician: Dr. Sheldon Attending Physician: Andrea Sheldon MD History of Present Illness Dear Dr. Sheldon: Thank you for the kind referral of Mrs. Toro to critical care service. This is 58-year-old female with a history of morbid obesity, obstructive sleep apnea, noncompliant with oxygen or CPAP, history of asthma and cor pulmonale, coronary artery disease, diastolic heart failure, seizure disorder, presented to the hospital with increasing shortness of breath. The patient was admitted initially to the telemetry floor where she sustained a seizure and apparently went into cardiac arrest, the patient started with CPR and it was very brief, the patient received 1 dose of epinephrine . Intubated and transferred to the ICU after ROSC. In the ICU, the patient was sedated already with the propofol, she barely can open her eyes, she seems to move but review of system at this point is not obtainable, her neuro exam also is not achievable however, she seems to sustain movement in her upper and lower extremities. Allergies Allergy/AdvReac Type Severity Reaction Status Date / Time ceftaroline fosamil Allergy Mild ITCHING Verified 03/12/19 11:03 HANDS latex Allergy Mild Verified 03/12/19 11:03 SABINE Inhibitors Allergy Unknown Verified 03/12/19 11:03 codeine Allergy Unknown Verified 03/12/19 11:03 erythromycin base Allergy Unknown Verified 03/12/19 11:03 Iodinated Contrast- Oral and Allergy Unknown ` Verified 03/12/19 11:03 IV Dye Penicillins AdvReac Mild MAKES HER Verified 03/12/19 11:03 "FUNNY IN THE HEAD" Home Medications Home Medications Medication Instructions Recorded Confirmed Type metoprolol tartrate 50 mg tablet 50 mg PO DAILY tab 06/26/18 03/14/19 History ondansetron HCl 4 mg tablet 4 mg PO Q6H PRN tab 06/26/18 03/14/19 History phenytoin sodium extended 100 mg 200 mg PO .q am cap 06/26/18 03/14/19 History capsule phenytoin sodium extended 100 mg 300 mg PO .q pm cap 06/26/18 03/14/19 History capsule topiramate 100 mg tablet 100 mg PO .q am tab 06/26/18 03/14/19 History topiramate 200 mg tablet 200 mg PO .q hs tab 06/26/18 03/14/19 History metformin 500 mg tablet 500 mg PO BID 12/04/18 03/14/19 History ciprofloxacin 500 mg tablet 500 mg PO BID #60 tab 01/04/19 03/14/19 Rx aspirin [Aspir-81] 81 mg PO DAILY 03/13/19 03/14/19 History furosemide [Lasix] 40 mg PO QAM 03/13/19 03/14/19 History nystatin 1 appln TOP QID #15 gm 03/13/19 03/14/19 Rx Patient History Medical History MSSA (methicillin susceptible Staphylococcus aureus) (Acute) ASCVD (arteriosclerotic cardiovascular disease) (Chronic) Asthma (Chronic) Cardiomyopathy (Chronic) Cellulitis (Chronic) Cor pulmonale (Chronic) Diabetes 1.5, managed as type 2 (Chronic) Diverticulosis (Chronic) Encephalopathy (Chronic) GERD (gastroesophageal reflux disease) (Chronic) Hyperlipidemia LDL goal <100 (Chronic) Left bundle branch block (LBBB) (Chronic) Lymphedema (Chronic) Obesity (Chronic) Rectal polyp (Chronic) Seizure (Chronic) Sleep apnea (Chronic) Systolic CHF (Chronic) Thyroid nodule (Chronic) Tubal ligation status (Chronic) Surgical History H/O sinus surgery (Chronic) Social History Preferred Language: Portuguese Communication Ability: Effective Delivery Clerk Required: No Beliefs That Will Affect Care: None Current Living Situation: Significant Other Other Information That Helps Us Care for You: No Feels Safe at Home: Yes Safety Concerns: Feels Safe At This Time Smoking Status: Former smoker Do You Dip or Chew Tobacco: No Second Hand Exposure: No Tobacco Cessation Education Requested by Patient: No Hx Alcohol Use: No Hx Substance Use: No Review of Systems Review of Systems: Review of system is not obtainable. Physical Exam Physical Exam: Vital signs are stable, blood pressure is in the borderline, S1-S2, regular rate and rhythm, lungs are distant breath sounds, abdomen is benign, morbidly obese, cushingoid type, edema in the periphery noted. Results & Data Vital Signs (Past 12 Hours) Vital Signs Temp Pulse Pulse Resp BP BP Pulse Ox 03/15/19 15:00 67 96 03/15/19 14:46 68 80/34 L 96 03/15/19 14:31 69 70/26 L 96 03/15/19 14:01 67 92/52 L 97 03/15/19 14:00 67 20 97 03/15/19 13:46 67 90/50 L 97 03/15/19 13:31 67 91/53 L 96 03/15/19 13:16 67 87/53 L 96 03/15/19 13:02 67 96 03/15/19 13:01 67 97/48 L 96 03/15/19 13:00 68 96 03/15/19 12:56 66 93/53 L 96 03/15/19 12:46 67 93/53 L 96 03/15/19 12:31 69 87/50 L 96 03/15/19 12:30 67 96 03/15/19 12:16 68 84/48 L 96 03/15/19 12:01 37.2 C 68 90/48 L 96 03/15/19 12:00 68 96 03/15/19 11:46 67 99/80 L 100 03/15/19 11:38 67 20 98 03/15/19 11:31 67 91/52 L 98 03/15/19 11:30 66 98 03/15/19 11:16 68 86/47 L 98 03/15/19 11:01 69 81/46 L 98 03/15/19 11:00 69 98 03/15/19 10:46 72 85/47 L 99 03/15/19 10:44 73 78/52 L 99 03/15/19 10:31 75 97/54 L 99 03/15/19 10:30 77 100 03/15/19 10:16 74 78/54 L 99 03/15/19 10:02 77 100 03/15/19 10:01 77 73/42 L 98 03/15/19 10:00 77 99 03/15/19 09:46 93 H 116/97 100 03/15/19 09:45 90 100 03/15/19 09:31 92 H 123/63 100 03/15/19 09:30 90 100 03/15/19 09:16 93 H 115/58 L 99 03/15/19 09:15 91 H 99 03/15/19 09:10 95 H 20 98 03/15/19 09:02 95 H 98 03/15/19 09:01 100/59 L 98 03/15/19 07:21 37.4 C 101 H 18 101/58 L 95 03/15/19 07:08 91 H 18 95 03/15/19 06:49 98 H 03/15/19 05:09 85 18 91 Laboratory Results Normal CBC, ABG with washout metabolic alkalosis, BMP is acceptable except for bicarb of 42, glucose is slightly elevated. Phenytoin level is 4.0. Diagnostic Findings Chest x-ray which I reviewed personally revealed difficult to assess the ET tube, small lung volumes, cardiomegaly. Echocardiogram is pending.
[2019-03-15] MEDS ORDERED: Nursing to Pharmacy Communication ONE (15:56)
[2019-03-15] MEDS ORDERED: fentaNYL citrate 100 MCG/2 ML VIAL IV PRN (16:03)
[2019-03-15] MEDS ORDERED: MIDAZOLAM HCL 125 MG/250 ML BAG IV SCH (16:07)
--- NOTE | 2019-03-15 16:07 | Procedure Note ---
Procedure Note Date of Service March 15, 2019 Note Central line was placed in the right IJ, needed emergently and the patient was postcode, under strict sterile field, using ultrasound, the skin was prepped with chlorhexidine, injected with 5 mL of 1% lidocaine, using Seldinger technique, scalpel was not used only a dilator, a line was placed to 15 cm, and secured with 2 sutures, covered with surgical dressing, the tip of the catheter at the SVC junction, no pneumothorax. Tolerated the procedure very well. Coding
--- NOTE | 2019-03-15 17:09 | Hospitalist Progress Note ---
Date of Service March 15, 2019 Assessment & Plan (1) Acute on chronic respiratory failure with hypoxia and hypercapnia: On 03/15 at approx. 8:30am, patient had a possible seizure, and went into respiratory distress and possible cardiac arrest. Per telemetry, she was tachycardic in the 90-100 range, went to 70, and became unresponsive. - Coded for approx. 3 minutes with ROSC. Remained hypoxemic and unresponsive, and was intubated - Now in the ICU on mechanical ventillation (2) Seizure: Per report from a neighbor, she had a possible seizure over the weekend of 03/10-03/11. (Per note, was maybe while sleeping?) EMS was called, but she apparently declined transport to a hospital. Belief is that she had a seizure the morning of 03/15 which precipitated her respiratory arrest; however, this was not witnessed by a physician. - Discussed with Dr. Ordonez and loaded phenytoin as her level was 4 on admission. - Pulm/cc considering switch due to concern for phenytoin lengthening QTc (3) Cardiomyopathy: Chronich systolic heart failure without known exacerbation at this time. Ischemic cardiomyopathy per notes from 2009 which showed EF 40-45%. Per notes, cath in 2010 showed non-occlusive CAD. - Will repeat echo - Case discussed with Dr. Shah on 03/[address]ations seen on EKG. Trop was 0.1, pointing away from acute thrombotic event. - Will consider LHC if troponins increase or EKGs point toward unstable coronary condition - Will attempt to diureses as BP allows - Continue ASA; hold beta-karthik for low BP (4) Systolic CHF: As above. (5) DM type 2 (diabetes mellitus, type 2): A1c was 6.6% on 03/15/2019. On metformin at home. - Sliding scale insulin (6) HTN (hypertension): On beta-karthik and Lasix at baseline. - Currently hypotensive; holding HTN meds at present. (7) DVT prophylaxis: Lovenox Subjective Code blue today at 8:30am Review of Systems Review of Systems: Unobtainable due to endotracheal tube Physical Exam Constitutional: WD/WN, vitals as above + acute distress and + morbidly obese Eyes: no conjunctival abnormality ENMT: external ear and nose normal, oropharynx normal Neck: trachea midline, no thyromegaly normal visual inspection Respiratory: + respiratory distress Cardiovascular: RRR, no murmur, no edema Vessels: dorsalis pedis pulses present Gastrointestinal (Abdomen): Inspection/Auscultation: abdomen normal to inspection; abdomen not distended Musculoskeletal: no cyanosis or clubbing, extremities motor strength 5/5 Skin: no rashes, warm and dry Neurologic: + not awake Psychiatric: Unresponsive Results & Data Vital Signs (Past 12 Hours) Vital Signs Temp Pulse Pulse Resp BP BP Pulse Ox 03/15/19 16:46 66 89/57 L 95 03/15/19 16:31 70 95 03/15/19 16:30 74 95 03/15/19 16:16 64 81/46 L 96 03/15/19 16:01 65 81/44 L 96 03/15/19 16:00 37.2 C 64 96 03/15/19 15:46 66 83/47 L 96 03/15/19 15:31 65 84/47 L 96 03/15/19 15:30 66 03/15/19 15:16 71 92/49 L 95 03/15/19 15:01 67 78/34 L 96 03/15/19 15:00 67 96 03/15/19 14:46 68 80/34 L 96 03/15/19 14:31 69 70/26 L 96 03/15/19 14:01 67 92/52 L 97 03/15/19 14:00 67 20 97 03/15/19 13:46 67 90/50 L 97 03/15/19 13:31 67 91/53 L 96 03/15/19 13:16 67 87/53 L 96 03/15/19 13:02 67 96 03/15/19 13:01 67 97/48 L 96 03/15/19 13:00 68 96 03/15/19 12:56 66 93/53 L 96 03/15/19 12:46 67 93/53 L 96 03/15/19 12:31 69 87/50 L 96 03/15/19 12:30 67 96 03/15/19 12:16 68 84/48 L 96 03/15/19 12:01 37.2 C 68 90/48 L 96 03/15/19 12:00 68 96 03/15/19 11:46 67 99/80 L 100 03/15/19 11:38 67 20 98 03/15/19 11:31 67 91/52 L 98 03/15/19 11:30 66 98 03/15/19 11:16 68 86/47 L 98 03/15/19 11:01 69 81/46 L 98 03/15/19 11:00 69 98 03/15/19 10:46 72 85/47 L 99 03/15/19 10:44 73 78/52 L 99 03/15/19 10:31 75 97/54 L 99 03/15/19 10:30 77 100 03/15/19 10:16 74 78/54 L 99 03/15/19 10:02 77 100 03/15/19 10:01 77 73/42 L 98 03/15/19 10:00 77 99 03/15/19 09:46 93 H 116/97 100 03/15/19 09:45 90 100 03/15/19 09:31 92 H 123/63 100 03/15/19 09:30 90 100 03/15/19 09:16 93 H 115/58 L 99 03/15/19 09:15 91 H 99 03/15/19 09:10 95 H 20 98 03/15/19 09:02 95 H 98 03/15/19 09:01 100/59 L 98 03/15/19 07:21 37.4 C 101 H 18 101/58 L 95 03/15/19 07:08 91 H 18 95 03/15/19 06:49 98 H 03/15/19 05:09 85 18 91 Critical Care Time Critical Care Time: Yes Total Critical Care Time: 90
[2019-03-15 17:55] LABS: Basophils # (auto) 0.01 K/uL (0-0.2); Basophils % (auto) 0.1 %; Eosinophils # (auto) 0.01 K/uL (0-0.5); Eosinophils % (auto) 0.1 %; Hematocrit (blood only) 37.7 % (37-47); Immature Granulocytes # (auto) 0.03 K/uL (0.00-0.02); Immature Granulocytes % (auto) 0.3 %; Lymphocytes # (auto) 0.87 K/uL (1.2-3.4); Lymphocytes % (auto) 8.6 %; Mean Corpuscular Hgb Conc 31.8 g/dL (32-36); Mean Corpuscular Volume 89.5 fL (80-100); Mean Platelet Volume 9.5 fL (7.4-10.4); Monocytes # (auto) 0.69 K/uL (0.11-0.59); Monocytes % (auto) 6.8 %; Neutrophils # (auto) 8.49 K/uL (1.4-6.5); Neutrophils % (auto) 84.1 %; Platelet Count 197 K/uL (130-400); RDW Coefficient of Variation 14.1 % (11.5-14.5); RDW Standard Deviation 46.5 fL (36.4-46.3); Red Blood Count 4.21 M/uL (4.2-5.4)
[2019-03-15] MEDS: AMPICILLIN/SULBACTAM SOD 3,000 MG in 0.9 % SODIUM CHLORIDE 100 ML IV SCH ×2 (18:04→23:54)
[2019-03-15 18:15] LABS: Albumin Level 2.2 gm/dl (3.4-5.0); BUN Creatinine Ratio 12.8 (10-20); Calcium 7.7 mg/dl (8.5-10.1); Creatinine Clr Calc Pharmacy 58.4 ml/min; Est GFR (African American) 61.8; Est GFR (Non-African American) 53.4; Magnesium 1.8 mg/dl (1.8-2.4); Potassium 3.1 mmol/L (3.5-5.1)
[2019-03-15 18:20] LABS: Albumin Globulin Ratio 0.6 (0.9-2); Bilirubin,Total 0.6 mg/dl (0.2-1); Globulin 3.6 gm/dl (2.5-4.0); Phosphorus 1.6 mg/dl (2.5-4.9); Total Protein 5.8 gm/dl (6.4-8.2)
[2019-03-15] MEDS ORDERED: CONSULT PHARMACY PRN (19:31)
[2019-03-15] MEDS ORDERED: 0.9 % SODIUM CHLORIDE FLUSH 20 ML in SYRINGE 0 ML IV SCH (21:00)
[2019-03-15] MEDS ORDERED: PHENYTOIN SUSP 125 MG/5 ML PO SCH (21:00)
[2019-03-15] MEDS ORDERED: ETOMIDATE 2 MG/ML 20 ML VIAL IV ONE (21:16)
[2019-03-15] MEDS ORDERED: VECURONIUM BROMIDE 10 MG VIAL IV ONE (21:16)
[2019-03-15] MEDS ORDERED: SODIUM CHLORIDE 0.9% 10ML FLUSH IV ONE (21:17)
[2019-03-16 05:32] LABS: Hematocrit (blood only) 37.8 % (37-47); Hemoglobin 11.9 g/dL (12.0-16.0); Mean Corpuscular Hgb Conc 31.5 g/dL (32-36); Mean Corpuscular Volume 89.8 fL (80-100); Mean Platelet Volume 10.5 fL (7.4-10.4); Platelet Count 194 K/uL (130-400); RDW Coefficient of Variation 14.3 % (11.5-14.5); RDW Standard Deviation 46.9 fL (36.4-46.3); Red Blood Count 4.21 M/uL (4.2-5.4); White Blood Count 8.14 K/uL (4.8-10.8)
[2019-03-16] MEDS: AMPICILLIN/SULBACTAM SOD 3,000 MG in 0.9 % SODIUM CHLORIDE 100 ML IV SCH ×4 (05:45→17:41)
[2019-03-16 05:48] LABS: INR 1.1 (0.9-1.1); Prothrombin Time 10.8 Seconds (9.0-12.0)
[2019-03-16 05:51] LABS: Albumin Level 2.2 gm/dl (3.4-5.0); Calcium 7.6 mg/dl (8.5-10.1); Creatinine Clr Calc Pharmacy 52.8 ml/min; Est GFR (African American) 54.7; Est GFR (Non-African American) 47.2; Magnesium 1.8 mg/dl (1.8-2.4); Potassium 2.9 mmol/L (3.5-5.1)
[2019-03-16 06:09] LABS: Albumin Globulin Ratio 0.6 (0.9-2); Bilirubin,Total 0.7 mg/dl (0.2-1); Globulin 3.6 gm/dl (2.5-4.0); Phosphorus 1.5 mg/dl (2.5-4.9); Total Protein 5.8 gm/dl (6.4-8.2); Troponin I 0.085 ng/ml (0-0.045)
[2019-03-16] MEDS: INSULIN ASPART 100 UNITS/ML 3 ML PEN SC SCH ×3 (06:16→17:39)
--- NOTE | 2019-03-16 07:03 | XRay Report ---
XR chest 1V portable CLINICAL HISTORY: Aspiration dyspnea COMPARISON STUDY: 03/15/2019 FINDINGS: Improved ventilation left lung base. Improved visibility left hemidiaphragm. Interval development of a small right effusion. Moderate stable cardia megaly. Slight increase in pro minence of the pulmonary vasculature. Central catheter remains in superior vena cava. The endotracheal tube is at the origin of the right m ainstem bronchus and should be pulled back several centimeters. Nasogastric tube remains within the s tomach. IMPRESSION: 1. Endotracheal tube is at the origin of the right mainstem bronchus and should be pulled back severa l centimeters. 2. Improved aeration left base. 3. Interval development of a small right effusion. 4. Interval development of mild congestive failure. The above report was generated using voice recognition software. It may contain grammatical, syntax or spelling errors. Electronically signed by: Jessee Vance M.D. 03/16/2019 7:01 AM
[2019-03-16] MEDS ORDERED: PERFLUTREN LIPID MICROSPHERE (DEFINITY) IV ONE (07:59)
[2019-03-16] MEDS: ASPIRIN 81 MG CHEW GT SCH (08:59)
[2019-03-16] MEDS: ENOXAPARIN INJ 40 MG/0.4 ML SYR SQ SCH (08:59)
[2019-03-16] MEDS: TOPIRAMATE 100 MG TAB PO SCH ×2 (08:59→20:48)
[2019-03-16] MEDS: NYSTATIN POWDER 15GM BTL EXT SCH ×4 (09:00→20:48)
--- NOTE | 2019-03-16 09:26 | Cardiology Consultation ---
Date of Consultation March 16, 2019 Assessment & Plan (1) Acute on chronic respiratory failure with hypoxia and hypercapnia: Acute on chronic hypoxic and hypercapnic secondary to recurrent seizure activity. Telemetry reviewed. No evidence of asystole or ventricular fibrillation. Minimally elevated troponins as noted below. Repeat ECG without regional wall motion abnormality or decline in LV systolic function. Patient currently intubated with plans for extubation later today. (2) NICM (nonischemic cardiomyopathy): Cardiac catheterization performed 2010 demonstrating essentially normal coronary arteries. Repeat echocardiogram performed today demonstrates improved LV systolic function with ejection fraction of 50 to 55%. Septal wall motion consistent with underlying left bundle branch block. (3) Pericardial effusion: Trivial loculated right lateral pericardial effusion without hemodynamic significance noted on repeat echocardiogram. Carries history of chronic moderate circumferential pericardial effusion. (4) Left bundle branch block: Chronic. (5) Seizure: (6) Elevated troponin I level: Secondary to transient hypoxia in the setting of acute respiratory failure. ECG nondiagnostic due to underlying left bundle branch block. No new regional wall motion on rise with improvement of LV systolic function per repeat resting 2D transthoracic echocardiogram. History of Present Illness Reason for Consultation: Cardiac Arrest Requesting Physician: Dr. Jenyn Branch Attending Physician: Andrea Sheldon MD History of Present Illness 58-year-old female admitted 03/15/2019 with acute on chronic hypoxic and hypercapnic respiratory failure. On the morning of 03/15/19 [facility] was called. Per nursing report, witnessed seizure activity followed by a loss of consciousness. CPR performed for approximately 3 minutes. There were no dysrhythmias observed. Telemetry reviewed extensively. No evidence of asystole, or ventricular fibrillation. Patient was successfully intubated and brought to the intensive care unit. She was noted to be markedly hypercapnic with a PCO2 of 110. No recurrent seizure activity overnight. ECG post echo demonstrated transient T wave inversions in the anterior precordial leads. Patient has a chronic underlying left bundle branch block. History of nonischemic cardiomyopathy with left ventricular systolic function ranging from 40 to 55%, chronic moderate circumferential pericardial effusion, essentially normal coronary arteries per cardiac catheterization 10/19/2011, and chronic left bundle branch block. Patient currently intubated. Troponin minimally elevated. Repeat resting 2D transthoracic echocardiogram demonstrates preserved LV systolic function with an LV ejection fraction of 50 to 55% and a trivial loculated right lateral pericardial effusion. ECG demonstrates left bundle branch block. Allergies Allergy/AdvReac Type Severity Reaction Status Date / Time ceftaroline fosamil Allergy Mild ITCHING Verified 03/12/19 11:03 HANDS latex Allergy Mild Verified 03/12/19 11:03 SABINE Inhibitors Allergy Unknown Verified 03/12/19 11:03 codeine Allergy Unknown Verified 03/12/19 11:03 erythromycin base Allergy Unknown Verified 03/12/19 11:03 Iodinated Contrast- Oral and Allergy Unknown ` Verified 03/12/19 11:03 IV Dye Penicillins AdvReac Mild MAKES HER Verified 03/12/19 11:03 "FUNNY IN THE HEAD" Home Medications Home Medications Medication Instructions Recorded Confirmed Type metoprolol tartrate 50 mg tablet 50 mg PO DAILY tab 06/26/18 03/14/19 History ondansetron HCl 4 mg tablet 4 mg PO Q6H PRN tab 06/26/18 03/14/19 History phenytoin sodium extended 100 mg 200 mg PO .q am cap 06/26/18 03/14/19 History capsule phenytoin sodium extended 100 mg 300 mg PO .q pm cap 06/26/18 03/14/19 History capsule topiramate 100 mg tablet 100 mg PO .q am tab 06/26/18 03/14/19 History topiramate 200 mg tablet 200 mg PO .q hs tab 06/26/18 03/14/19 History metformin 500 mg tablet 500 mg PO BID 12/04/18 03/14/19 History ciprofloxacin 500 mg tablet 500 mg PO BID #60 tab 01/04/19 03/14/19 Rx aspirin [Aspir-81] 81 mg PO DAILY 03/13/19 03/14/19 History furosemide [Lasix] 40 mg PO QAM 03/13/19 03/14/19 History nystatin 1 appln TOP QID #15 gm 03/13/19 03/14/19 Rx Patient History Medical History MSSA (methicillin susceptible Staphylococcus aureus) (Acute) ASCVD (arteriosclerotic cardiovascular disease) (Chronic) Asthma (Chronic) Cardiomyopathy (Chronic) Cellulitis (Chronic) Cor pulmonale (Chronic) Diabetes 1.5, managed as type 2 (Chronic) Diverticulosis (Chronic) Encephalopathy (Chronic) GERD (gastroesophageal reflux disease) (Chronic) Hyperlipidemia LDL goal <100 (Chronic) Left bundle branch block (LBBB) (Chronic) Lymphedema (Chronic) Obesity (Chronic) Rectal polyp (Chronic) Seizure (Chronic) Sleep apnea (Chronic) Systolic CHF (Chronic) Thyroid nodule (Chronic) Tubal ligation status (Chronic) Surgical History H/O sinus surgery (Chronic) Social History Preferred Language: Maltese Communication Ability: Effective Moss Bleacher Required: No Beliefs That Will Affect Care: None Current Living Situation: Significant Other Other Information That Helps Us Care for You: No Feels Safe at Home: Yes Safety Concerns: Feels Safe At This Time Smoking Status: Former smoker Do You Dip or Chew Tobacco: No Second Hand Exposure: No Tobacco Cessation Education Requested by Patient: No Hx Alcohol Use: No Hx Substance Use: No Review of Systems Review of Systems: Unobtainable due to endotracheal tube Physical Exam Physical Exam: General: NAD, AAO x3, morbid obesity. Intubated. HEENT: Poor dentition. Normocephalic. Atraumatic. Conjunctiva pink, no scleral icterus. No carotid bruits, the carotid upstrokes are brisk. No JVD. No HJR Heart: Regular normal S-1 and S-2 no S-3 or S-4 gallop. Heart sounds are distant. No murmurs or rubs appreciated. PMI is not displaced. No RV heave. Lungs: Clear bilateral without rales , rhonchi, or wheeze. Abdomen: Normal bowel sounds. Soft. Nontender. No masses or organomegaly. No abdominal bruits. Extremities: 2+ bilateral pedal and pretibial edema. + Erythema , + ulcerations. No clubbing, or cyanosis. Pulses: radial=2/4. Neuro: No focal deficits. Results & Data Vital Signs (Past 12 Hours) Vital Signs Temp Pulse Pulse Resp BP Pulse Ox 03/16/19 07:38 98 H 20 95 03/16/19 07:00 70 20 90/57 L 95 03/16/19 05:25 73 16 94 03/16/19 04:00 36.7 C 63 18 99/53 L 99 03/16/19 02:15 65 16 96 03/16/19 02:00 65 16 99 03/16/19 01:00 65 16 87/53 L 95 03/16/19 00:00 36.7 C 65 19 91/47 L 95 03/15/19 23:15 65 16 96 03/15/19 23:00 63 18 91/53 L 95 03/15/19 22:00 65 18 90/45 L 96 Laboratory Results Laboratory Results - last 24 hr 03/15/19 03/15/19 03/15/19 05:37 08:50 11:47 WBC RBC Hgb Hct MCV MCH MCHC RDW Std Deviation RDW Coeff of Ewa Plt Count MPV Immature Gran % (Auto) Neut % (Auto) Lymph % (Auto) Wells % (Auto) Eos % (Auto) Baso % (Auto) Immature Gran # (Auto) Neut # (Auto) Lymph # (Auto) Wells # (Auto) Eos # (Auto) Baso # (Auto) PT INR Sample Site R Radial POC pH 7.11 L* POC pCO2 110 H POC pO2 311 H POC HCO3 34 H POC Total CO2 38 H POC Base Excess 5.0 H POC ABG O2 Sat 100.0 H [place] Test Pass O2 Delivery Device BagValve POC O2 Rate Minute Ventilation POC FiO2 100 Tidal Volume PEEP 0 Sodium Potassium Chloride Carbon Dioxide Anion Gap BUN Creatinine Est Cr Clr Drug Dosing Est GFR ( Amer) Est GFR (Non-Af Amer) BUN/Creatinine Ratio Glucose POC Glucose 207 H Estimat Average Glucose 143 Hemoglobin A1c 6.6 H Lactate Calcium Phosphorus Magnesium Total Bilirubin AST ALT Alkaline Phosphatase Troponin I NT-Pro-B Natriuret Pep Total Protein Albumin Globulin Albumin/Globulin Ratio Procalcitonin Phenytoin 03/15/19 03/15/19 03/15/19 14:25 16:05 17:46 WBC RBC Hgb Hct MCV MCH MCHC RDW Std Deviation RDW Coeff of Ewa Plt Count MPV Immature Gran % (Auto) Neut % (Auto) Lymph % (Auto) Wells % (Auto) Eos % (Auto) Baso % (Auto) Immature Gran # (Auto) Neut # (Auto) Lymph # (Auto) Wells # (Auto) Eos # (Auto) Baso # (Auto) PT INR Sample Site R Brachial POC pH 7.56 H* POC pCO2 44 POC pO2 83 POC HCO3 40 H POC Total CO2 > 40 H* POC Base Excess 17.0 H POC ABG O2 Sat 97.0 H [place] Test NA O2 Delivery Device Ventilator POC O2 Rate 20 Minute Ventilation 7.6 POC FiO2 60 Tidal Volume 400 PEEP 5 Sodium 138 Potassium 3.1 L D Chloride 94 L Carbon Dioxide 40 H Anion Gap 4.0 BUN 14 Creatinine 1.12 Est Cr Clr Drug Dosing 58.4 Est GFR ( Amer) 61.8 Est GFR (Non-Af Amer) 53.4 BUN/Creatinine Ratio 12.8 Glucose 146 H POC Glucose Estimat Average Glucose Hemoglobin A1c Lactate Calcium 7.7 L Phosphorus 1.6 L Magnesium 1.8 Total Bilirubin 0.6 AST 36 ALT 28 Alkaline Phosphatase 133 H Troponin I 0.118 H* NT-Pro-B Natriuret Pep 532 Total Protein 5.8 L Albumin 2.2 L Globulin 3.6 Albumin/Globulin Ratio 0.6 L Procalcitonin Phenytoin 03/15/19 03/15/19 03/15/19 17:46 17:46 17:46 WBC 10.10 RBC 4.21 Hgb 12.0 Hct 37.7 MCV 89.5 MCH 28.5 MCHC 31.8 L RDW Std Deviation 46.5 H RDW Coeff of Ewa 14.1 Plt Count 197 MPV 9.5 Immature Gran % (Auto) 0.3 Neut % (Auto) 84.1 Lymph % (Auto) 8.6 Wells % (Auto) 6.8 Eos % (Auto) 0.1 Baso % (Auto) 0.1 Immature Gran # (Auto) 0.03 H Neut # (Auto) 8.49 H Lymph # (Auto) 0.87 L Wells # (Auto) 0.69 H Eos # (Auto) 0.01 Baso # (Auto) 0.01 PT INR Sample Site POC pH POC pCO2 POC pO2 POC HCO3 POC Total CO2 POC Base Excess POC ABG O2 Sat [place] Test O2 Delivery Device POC O2 Rate Minute Ventilation POC FiO2 Tidal Volume PEEP Sodium Potassium Chloride Carbon Dioxide Anion Gap BUN Creatinine Est Cr Clr Drug Dosing Est GFR ( Amer) Est GFR (Non-Af Amer) BUN/Creatinine Ratio Glucose POC Glucose Estimat Average Glucose Hemoglobin A1c Lactate 1.8 Calcium Phosphorus Magnesium Total Bilirubin AST ALT Alkaline Phosphatase Troponin I NT-Pro-B Natriuret Pep Total Protein Albumin Globulin Albumin/Globulin Ratio Procalcitonin 0.11 Phenytoin 03/15/19 03/15/19 03/16/19 17:46 23:50 04:39 WBC RBC Hgb Hct MCV MCH MCHC RDW Std Deviation RDW Coeff of Ewa Plt Count MPV Immature Gran % (Auto) Neut % (Auto) Lymph % (Auto) Wells % (Auto) Eos % (Auto) Baso % (Auto) Immature Gran # (Auto) Neut # (Auto) Lymph # (Auto) Wells # (Auto) Eos # (Auto) Baso # (Auto) PT INR Sample Site POC pH POC pCO2 POC pO2 POC HCO3 POC Total CO2 POC Base Excess POC ABG O2 Sat [place] Test O2 Delivery Device POC O2 Rate Minute Ventilation POC FiO2 Tidal Volume PEEP Sodium Potassium Chloride Carbon Dioxide Anion Gap BUN Creatinine Est Cr Clr Drug Dosing Est GFR ( Amer) Est GFR (Non-Af Amer) BUN/Creatinine Ratio Glucose POC Glucose 145 H 149 H Estimat Average Glucose Hemoglobin A1c Lactate Calcium Phosphorus Magnesium Total Bilirubin AST ALT Alkaline Phosphatase Troponin I NT-Pro-B Natriuret Pep Total Protein Albumin Globulin Albumin/Globulin Ratio Procalcitonin Phenytoin 5.3 L 03/16/19 03/16/19 03/16/19 04:39 04:39 04:39 WBC 8.14 RBC 4.21 Hgb 11.9 L Hct 37.8 MCV 89.8 MCH 28.3 MCHC 31.5 L RDW Std Deviation 46.9 H RDW Coeff of Ewa 14.3 Plt Count 194 MPV 10.5 H Immature Gran % (Auto) Neut % (Auto) Lymph % (Auto) Wells % (Auto) Eos % (Auto) Baso % (Auto) Immature Gran # (Auto) Neut # (Auto) Lymph # (Auto) Wells # (Auto) Eos # (Auto) Baso # (Auto) PT 10.8 INR 1.1 Sample Site POC pH POC pCO2 POC pO2 POC HCO3 POC Total CO2 POC Base Excess POC ABG O2 Sat [place] Test O2 Delivery Device POC O2 Rate Minute Ventilation POC FiO2 Tidal Volume PEEP Sodium 138 Potassium 2.9 L Chloride 94 L Carbon Dioxide 39 H Anion Gap 5.0 BUN 16 Creatinine 1.24 H Est Cr Clr Drug Dosing 52.8 Est GFR ( Amer) 54.7 Est GFR (Non-Af Amer) 47.2 BUN/Creatinine Ratio 13.0 Glucose 116 H POC Glucose Estimat Average Glucose Hemoglobin A1c Lactate Calcium 7.6 L Phosphorus 1.5 L* Magnesium 1.8 Total Bilirubin 0.7 AST 28 ALT 22 Alkaline Phosphatase 134 H Troponin I 0.085 H* NT-Pro-B Natriuret Pep Total Protein 5.8 L Albumin 2.2 L Globulin 3.6 Albumin/Globulin Ratio 0.6 L Procalcitonin Phenytoin 03/16/19 05:47 WBC RBC Hgb Hct MCV MCH MCHC RDW Std Deviation RDW Coeff of Ewa Plt Count MPV Immature Gran % (Auto) Neut % (Auto) Lymph % (Auto) Wells % (Auto) Eos % (Auto) Baso % (Auto) Immature Gran # (Auto) Neut # (Auto) Lymph # (Auto) Wells # (Auto) Eos # (Auto) Baso # (Auto) PT INR Sample Site POC pH POC pCO2 POC pO2 POC HCO3 POC Total CO2 POC Base Excess POC ABG O2 Sat [place] Test O2 Delivery Device POC O2 Rate Minute Ventilation POC FiO2 Tidal Volume PEEP Sodium Potassium Chloride Carbon Dioxide Anion Gap BUN Creatinine Est Cr Clr Drug Dosing Est GFR ( Amer) Est GFR (Non-Af Amer) BUN/Creatinine Ratio Glucose POC Glucose < 10 L* Estimat Average Glucose Hemoglobin A1c Lactate Calcium Phosphorus Magnesium Total Bilirubin AST ALT Alkaline Phosphatase Troponin I NT-Pro-B Natriuret Pep Total Protein Albumin Globulin Albumin/Globulin Ratio Procalcitonin Phenytoin
[2019-03-16] MEDS ORDERED: POTASSIUM PHOS 3 MMOL/1 ML INFUSION IV STA (09:45)
[2019-03-16] MEDS ORDERED: POTASSIUM PHOSPHATE 40 MMOL in SODIUM CHLORIDE 0.9% 1000ML 1,000 ML IV ONE (10:15)
[2019-03-16] MEDS ORDERED: POTASSIUM CHLORIDE 20 MEQ TABCR PO STA (10:49)
[2019-03-16] MEDS ORDERED: POTASSIUM CHLORIDE 20 MEQ/15 ML UDC PO STA (11:11)
--- NOTE | 2019-03-16 11:13 | Critical Care Progress Note ---
Date of Service March 16, 2019 Assessment & Plan (1) Acute on chronic respiratory failure with hypoxia and hypercapnia: Impression: 1. Acute on chronic hypoxic and hypercapnic respiratory failure. 2. V. fib arrest, etiology likely related to sleep breathing disorder. 3. Seizure disorder, noted by the staff that the patient did have a seizure activity as well. 4. Morbid obesity with obesity hypoventilation syndrome. 5. Chronic wound care. 6. Lymphedema. 7. History of asthma. 8. Obstructive sleep apnea, noncompliance with CPAP. 9. Left bundle branch block, T wave inversion was noted, compared to previous EKG this was a new change. 10. Obtain cardiology consult. 11. Discontinue Dilantin due to QTC of 560. 12. Start Keppra. 13. Hopefully CPAP in the morning. Plan: 1. CPAP trial failed due to the patient apnea. 2. Continue with Keppra 1 g twice daily. 3. Discontinue Dilantin due to prolonged QT interval and LBBB 4. Discontinue sedation. 5. DVT and GI prophylaxis. 6. continue Cipro. 7. Appreciate cardiology input, no PCI for now. 8. The patient will need a dedicated polysomnography with CPAP titration, all her symptoms including seizure disorder, sleep interruption, cardiac arrhythmia, recent cardiac arrest, all can be explained by sleep breathing disorder that has not been diagnosed. 9. Hold off tube feeding for now. 10. Once the patient is more awake, we will proceed with extubation to BiPAP with back-up rate. Discussed with Dr. Ricardo, with the staff on rounds, critical care time spent with the patient was 45 minutes. Subjective The patient remains intubated and stable overnight, no evidence of cardiac arrhythmia, the patient open her eyes and follow simple commands, she turned apneic with a CPAP trial, she has been off the propofol since the morning. Review of Systems Review of Systems: Review of system is not obtainable as the patient being intubated. Physical Exam Physical Exam: Vital signs remained stable, S1-S2, O2 saturation is 94% on 40%, respiratory rate of 16 match with the ventilator, no JVD, central line site well-maintained, lungs are clear, abdomen is benign, no edema. Neurologically difficult to assess. No rash. She does have significant skin changes due to lymphedema in the lower limbs. Results & Data Vital Signs (Past 12 Hours) Vital Signs Temp Pulse Pulse Resp BP Pulse Ox 03/16/19 07:38 98 H 20 95 03/16/19 07:00 70 20 90/57 L 95 03/16/19 05:25 73 16 94 03/16/19 04:00 36.7 C 63 18 99/53 L 99 03/16/19 02:15 65 16 96 03/16/19 02:00 65 16 99 03/16/19 01:00 65 16 87/53 L 95 03/16/19 00:00 36.7 C 65 19 91/47 L 95 03/15/19 23:15 65 16 96 Laboratory Results Labs are consistent with stable CBC, and BMP. She does have significant metabolic alkalosis. Diagnostic Findings Slightly elevated troponin, likely representing post code, EKG was reviewed which showed ST elevation due to LBBB, flipped T waves, chest x-ray with improved variation, ET tube was noted to be at low position.
[2019-03-16 12:12] LABS: iSTAT Allen Test Pass; iSTAT Arterial Blood Gas HCO3 37 meg/L (19-24); iSTAT Arterial Blood Gas pCO2 41 mmHg (35-46); iSTAT Arterial Blood Gas pH 7.56 (7.35-7.45); iSTAT Carbon Dioxide 38 mEq/l (24-31); iSTAT FiO2 50 %; iSTAT Site R Brachial
--- NOTE | 2019-03-16 16:10 | Hospitalist Progress Note ---
Date of Service March 16, 2019 Assessment & Plan (1) Acute on chronic respiratory failure with hypoxia and hypercapnia: On 03/15 at approx. 8:30am, patient had a possible seizure, and went into respiratory distress and possible cardiac arrest. Per telemetry, she was tachycardic in the 90-100 range, went to 70, and became unresponsive. - Coded for approx. 3 minutes with ROSC. Remained hypoxemic and unresponsive, and was intubated - Now in the ICU on mechanical ventilation - On Unasyn for possible aspiration (2) Seizure: Per report from a neighbor, she had a possible seizure over the weekend of 03/10-03/11. (Per admission note, was maybe while sleeping?) EMS was called, but she apparently declined transport to a hospital. Belief is that she had a seizure the morning of 03/15 which precipitated her respiratory arrest; however, this was not witnessed by a physician. - Discussed with Dr. Ordonez and loaded phenytoin as her level was 4 on admission. - Pulm/cc switched to Keppra due to concern for phenytoin lengthening QTc (3) Cardiomyopathy: Chronic systolic heart failure without known exacerbation at this time. Ischemic cardiomyopathy per notes from 2009 which showed EF 40-45%. Per notes, cath in 2010 showed non-occlusive CAD. Echo on 03/16 showed EF 50-55%; valves not well evaluated. - Case discussed with Dr. Shah on 03/[address] elevations seen on EKG. Trop was 0.1, pointing away from acute thrombotic event. Trop down to 0.08 by 03/16. - Seen by cardiology without acute concerns. - Continue ASA; hold beta-karthik for low BP (4) Systolic CHF: As above. (5) DM type 2 (diabetes mellitus, type 2): A1c was 6.6% on 03/15/2019. On metformin at home. - Sliding scale insulin (6) HTN (hypertension): On beta-karthik and Lasix at baseline. - Currently low-normal BP; holding HTN meds at present. (7) DVT prophylaxis: Lovenox Subjective Intubated and sedated/ Review of Systems Review of Systems: Unobtainable due to endotracheal tube Physical Exam Constitutional: WD/WN, vitals as above + acute distress and + morbidly obese Eyes: no conjunctival abnormality ENMT: external ear and nose normal, oropharynx normal Neck: trachea midline, no thyromegaly normal visual inspection Respiratory: + respiratory distress Cardiovascular: RRR, no murmur, no edema Vessels: dorsalis pedis pulses present Gastrointestinal (Abdomen): Inspection/Auscultation: abdomen normal to inspection; abdomen not distended Musculoskeletal: no cyanosis or clubbing, extremities motor strength 5/5 Skin: no rashes, warm and dry Neurologic: + not awake Results & Data Vital Signs (Past 12 Hours) Vital Signs Temp Pulse Pulse Resp BP BP Pulse Ox 03/16/19 15:00 37.4 C 68 116/63 95 03/16/19 14:30 67 105/61 95 03/16/19 14:00 69 102/62 03/16/19 13:55 73 16 95 03/16/19 13:00 75 93/72 L 93 03/16/19 12:00 37.1 C 91 H 102/62 92 03/16/19 11:43 105 H 20 93 03/16/19 11:31 105 H 154/77 H 93 03/16/19 11:25 107 H 88 L 03/16/19 11:01 82 111/65 94 03/16/19 10:01 72 112/53 L 92 03/16/19 09:46 72 110/65 92 03/16/19 09:16 70 104/61 94 03/16/19 09:09 77 123/66 96 03/16/19 09:01 68 93/56 L 94 03/16/19 08:16 70 102/52 L 95 03/16/19 08:01 37.1 C 69 92/47 L 94 03/16/19 07:38 98 H 20 95 03/16/19 07:01 70 90/57 L 95 03/16/19 07:00 70 20 90/57 L 95 03/16/19 05:25 73 16 94
[2019-03-16] MEDS: acetaZOLAMIDE 500 MG in SYRINGE 0 ML IV SCH (16:36)
[2019-03-16] MEDS: MODAFINIL 100 MG TAB PO SCH (16:40)
[2019-03-16] MEDS: fentaNYL DRIP 1,250 MCG/250 ML BAG IV SCH (17:11)
[2019-03-16] MEDS: METOPROLOL TARTRATE 25 MG TAB PO SCH (20:48)
[2019-03-17] MEDS: INSULIN ASPART 100 UNITS/ML 3 ML PEN SC SCH ×4 (00:09→17:44)
[2019-03-17] MEDS: AMPICILLIN/SULBACTAM SOD 3,000 MG in 0.9 % SODIUM CHLORIDE 100 ML IV SCH ×4 (00:12→18:42)
[2019-03-17] MEDS: acetaZOLAMIDE 500 MG in SYRINGE 0 ML IV SCH (00:12)
[2019-03-17 05:06] LABS: Hematocrit (blood only) 37.1 % (37-47); Hemoglobin 11.4 g/dL (12.0-16.0); Mean Corpuscular Hgb Conc 30.7 g/dL (32-36); Mean Corpuscular Volume 90.9 fL (80-100); Mean Platelet Volume 9.6 fL (7.4-10.4); Platelet Count 162 K/uL (130-400); RDW Coefficient of Variation 14.7 % (11.5-14.5); Red Blood Count 4.08 M/uL (4.2-5.4); White Blood Count 7.18 K/uL (4.8-10.8)
[2019-03-17 05:40] LABS: BUN Creatinine Ratio 11.5 (10-20); Calcium 7.3 mg/dl (8.5-10.1); Creatinine Clr Calc Pharmacy 57.7 ml/min; Est GFR (African American) 60.5; Est GFR (Non-African American) 52.2; Magnesium 1.9 mg/dl (1.8-2.4); Potassium 2.8 mmol/L (3.5-5.1)
--- NOTE | 2019-03-17 09:09 | XRay Report ---
XR chest 1V portable HISTORY: aspiration COMPARISON: Chest 03/16/2019. FINDINGS: Endotracheal tube is been pulled back and now resides 2.5 cm from the gabby. Nasogastric t ube terminates in the stomach. Moderate hiatus hernia. The heart is mildly enlarged. Patchy bibasilar densities and trace bilateral pleural effusions have slightly improved. Right jugular central venous catheter terminates at the SVC. IMPRESSION: 1. Satisfactory support line placement. 2. Slight improved aeration within the lung bases. Electronically signed by: Laurent Caballero M.D. 03/17/2019 9:07 AM
[2019-03-17] MEDS: TOPIRAMATE 100 MG TAB PO SCH ×2 (09:26→20:18)
[2019-03-17] MEDS: METOPROLOL TARTRATE 25 MG TAB PO SCH (09:26)
[2019-03-17] MEDS: ASPIRIN 81 MG CHEW GT SCH (09:26)
[2019-03-17] MEDS: POTASSIUM CHLORIDE / WTR 20 MEQ/100 ML PLCT IV SCH ×3 (09:26→12:33)
[2019-03-17] MEDS: ENOXAPARIN INJ 40 MG/0.4 ML SYR SQ SCH (09:27)
[2019-03-17] MEDS: NYSTATIN POWDER 15GM BTL EXT SCH ×4 (09:27→20:17)
[2019-03-17] MEDS: MODAFINIL 100 MG TAB PO SCH (09:29)
[2019-03-17 09:49] LABS: iSTAT Allen Test Pass; iSTAT Arterial Blood Gas HCO3 31 meg/L (19-24); iSTAT Arterial Blood Gas pCO2 58 mmHg (35-46); iSTAT Arterial Blood Gas pH 7.33 (7.35-7.45); iSTAT Carbon Dioxide 33 mEq/l (24-31); iSTAT FiO2 35 %; iSTAT Site L Radial
[2019-03-17] MEDS ORDERED: POTASSIUM CHLORIDE 20 MEQ/15 ML UDC PO STA (09:59)
[2019-03-17] MEDS ORDERED: LACTULOSE SYRUP 30 GM/45 ML UDP PO SCH (10:00)
[2019-03-17] MEDS: METHYLPHENIDATE HCL 10 MG TABLET PO SCH ×2 (10:28→20:17)
--- NOTE | 2019-03-17 10:29 | Cardiology Progress Note ---
Date of Service March 17, 2019 Assessment & Plan (1) Acute on chronic respiratory failure with hypoxia and hypercapnia: Acute on chronic hypoxic and hypercapnic secondary to recurrent seizure activity. Telemetry reviewed. No evidence of asystole or ventricular fibrillation. Minimally elevated troponins as noted below. Echocardiogram with normal LV function Patient remains intubated (2) NICM (nonischemic cardiomyopathy): Cardiac catheterization performed 2010 demonstrating essentially normal coronary arteries. Repeat echocardiogram performed today demonstrates improved LV systolic function with ejection fraction of 50 to 55%. Septal wall motion consistent with underlying left bundle branch block. Would continue beta-karthik, supplement potassium to avoid atrial arrhythmias especially with the use of Provigil and Ritalin (3) Pericardial effusion: Trivial loculated right lateral pericardial effusion without hemodynamic significance noted on repeat echocardiogram. Carries history of chronic moderate circumferential pericardial effusion. (4) Left bundle branch block: Chronic. (5) Seizure: (6) Elevated troponin I level: Secondary to transient hypoxia in the setting of acute respiratory failure. ECG nondiagnostic due to underlying left bundle branch block. No new regional wall motion on rise with improvement of LV systolic function per repeat resting 2D transthoracic echocardiogram. Subjective Patient seen and examined, chart medications, telemetry reviewed. Patient remains intubated but arousable on sedation. No further arrhythmias. Patient moving all extremities. Unable to voice complaints Physical Exam Constitutional: + morbidly obese Eyes: PERRL, conjunctivae normal, anicteric sclerae Neck: Thick neck with patient orally intubated Respiratory: Auscultation: + diminished lung sounds Coarse upper airway sounds Cardiovascular: Rate/Rhythm: regular rate Heart Sounds: no gallop and no murmur Distant heart sounds are present Extremities demonstrate diffuse indurated stasis changes bilaterally Gastrointestinal (Abdomen): Percussion/Palpation: abdomen soft Neurologic: Patient moving extremities Results & Data Vital Signs (Past 12 Hours) Vital Signs Temp Pulse Resp BP Pulse Ox 03/17/19 10:01 98 H 168/77 H 95 03/17/19 09:30 22 03/17/19 09:19 105 H 183/98 H 93 03/17/19 09:17 105 H 195/100 H 95 03/17/19 09:16 106 H 185/101 H 95 03/17/19 08:00 37.6 C H 67 127/63 96 03/17/19 07:51 66 16 98 03/17/19 07:21 66 03/17/19 07:00 66 125/56 L 97 03/17/19 06:00 66 123/60 98 03/17/19 05:56 66 16 98 03/17/19 05:03 37.6 C H 03/17/19 05:00 70 146/62 H 98 03/17/19 04:00 68 140/70 98 03/17/19 03:00 72 142/69 H 97 03/17/19 02:48 70 16 97 03/17/19 02:00 75 137/66 03/17/19 01:00 73 136/64 96 03/17/19 00:22 36.9 C 03/17/19 00:00 69 121/59 L 96 03/16/19 23:33 67 16 97 03/16/19 23:00 70 99/56 L Laboratory Results Laboratory Results - last 24 hr 03/15/19 03/16/19 03/16/19 09:25 09:35 11:28 WBC RBC Hgb Hct MCV MCH MCHC RDW Std Deviation RDW Coeff of Ewa Plt Count MPV Sample Site R Brachial POC pH 7.56 H* POC pCO2 41 POC pO2 77 L POC HCO3 37 H POC Total CO2 38 H POC Base Excess 15.0 H POC ABG O2 Sat 97.0 H [place] Test Pass O2 Delivery Device Ventilator POC O2 Rate 18 Minute Ventilation 10.6 POC FiO2 50 Tidal Volume 400 PEEP 5 Sodium Potassium Chloride Carbon Dioxide Anion Gap BUN Creatinine Est Cr Clr Drug Dosing Est GFR ( Amer) Est GFR (Non-Af Amer) BUN/Creatinine Ratio Glucose POC Glucose 125 H Calcium Magnesium Nasal Screen MRSA (PCR) Positive A Phenytoin 03/16/19 03/16/19 03/16/19 13:54 16:41 23:48 WBC RBC Hgb Hct MCV MCH MCHC RDW Std Deviation RDW Coeff of Ewa Plt Count MPV Sample Site POC pH POC pCO2 POC pO2 POC HCO3 POC Total CO2 POC Base Excess POC ABG O2 Sat [place] Test O2 Delivery Device POC O2 Rate Minute Ventilation POC FiO2 Tidal Volume PEEP Sodium Potassium 3.5 D Chloride Carbon Dioxide Anion Gap BUN Creatinine Est Cr Clr Drug Dosing Est GFR ( Amer) Est GFR (Non-Af Amer) BUN/Creatinine Ratio Glucose POC Glucose 115 H 125 H Calcium Magnesium Nasal Screen MRSA (PCR) Phenytoin 03/17/19 03/17/19 03/17/19 05:00 05:00 05:00 WBC 7.18 RBC 4.08 L Hgb 11.4 L Hct 37.1 MCV 90.9 MCH 27.9 MCHC 30.7 L RDW Std Deviation 49.0 H RDW Coeff of Ewa 14.7 H Plt Count 162 MPV 9.6 Sample Site POC pH POC pCO2 POC pO2 POC HCO3 POC Total CO2 POC Base Excess POC ABG O2 Sat [place] Test O2 Delivery Device POC O2 Rate Minute Ventilation POC FiO2 Tidal Volume PEEP Sodium 140 Potassium 2.8 L D Chloride 100 Carbon Dioxide 33 H Anion Gap 7.0 BUN 13 Creatinine 1.14 Est Cr Clr Drug Dosing 57.7 Est GFR ( Amer) 60.5 Est GFR (Non-Af Amer) 52.2 BUN/Creatinine Ratio 11.5 Glucose 112 H POC Glucose Calcium 7.3 L Magnesium 1.9 Nasal Screen MRSA (PCR) Phenytoin Cancelled 03/17/19 03/17/19 03/17/19 06:20 06:47 09:32 WBC RBC Hgb Hct MCV MCH MCHC RDW Std Deviation RDW Coeff of Ewa Plt Count MPV Sample Site L Radial POC pH 7.33 L POC pCO2 58 H POC pO2 87 POC HCO3 31 H POC Total CO2 33 H POC Base Excess 5.0 H POC ABG O2 Sat 96.0 H [place] Test Pass O2 Delivery Device Ventilator POC O2 Rate Minute Ventilation POC FiO2 35 Tidal Volume PEEP 5 Sodium Potassium Chloride Carbon Dioxide Anion Gap BUN Creatinine Est Cr Clr Drug Dosing Est GFR ( Amer) Est GFR (Non-Af Amer) BUN/Creatinine Ratio Glucose POC Glucose 109 H Calcium Magnesium Nasal Screen MRSA (PCR) Phenytoin 3.4 L
--- NOTE | 2019-03-17 11:07 | Critical Care Progress Note ---
Date of Service March 17, 2019 Assessment & Plan (1) Acute on chronic respiratory failure with hypoxia and hypercapnia: Impression: 1. Acute on chronic hypoxic and hypercapnic respiratory failure. 2. V. fib arrest, etiology likely related to sleep breathing disorder. 3. Seizure disorder, noted by the staff that the patient did have a seizure activity as well. 4. Morbid obesity with obesity hypoventilation syndrome. The patient is alert but not initiating any breath, her respiratory drive appears to be suppressed significantly. Noncompliant with CPAP therapy. 5. Chronic wound care. 6. Lymphedema. 7. History of asthma. 8. Acute respiratory failure, with hypoxia and hypercapnia, received Diamox, for 2 doses. 9. Left bundle branch block, T wave inversion was noted, compared to previous EKG this was a new change, cardiology recommended observation only. Plan: 1. CPAP trial with PSP of 5, FiO2 35%. 2. Continue with Keppra 1 g twice daily. 3. Discontinue Dilantin due to prolonged QT interval and LBBB 4. Discontinue sedation. 5. DVT and GI prophylaxis. 6. continue Cipro. 7. Appreciate cardiology input. 8. The patient will need a dedicated polysomnography with CPAP titration, all her symptoms including seizure disorder, sleep interruption, cardiac arrhythmia, recent cardiac arrest, all can be explained by sleep breathing disorder that has not been diagnosed. 9. Start the patient on Ritalin 10 mg twice daily to stimulate her respiratory drive. 10. Start the patient on Provigil 100 mg p.o. daily, I would expect delayed effect of this medication. 11. The patient started on Unasyn, I will continued for another 2 days, and if there is no evidence of infectious process, it can be stopped. 12.Replacement of potassium. 13. Repeat electrolytes in the afternoon. 14. Continue bronchodilators. 15. Discontinue Versed. 16. Discontinue fentanyl. 17. Start diuresis with Lasix. 18. Chlorhexidine oral. Discussed with the staff on rounds, critical care time spent with the patient was 45 minutes. Subjective The patient is opening her eyes, she is alert but does not follow commands properly, the patient still has not been able to take a deep breath, occasionally she is apneic even on the ventilator, she denies any pain, appears to be comfortable, no events overnight, no recurrence of cardiac arrhythmia. No recurrence of seizure. Review of Systems Review of Systems: Review of system is difficult to obtain in this patient who is intubated. Physical Exam Physical Exam: Vital signs are stable, blood pressure slightly elevated, O2 saturation 95% on the CPAP, S1-S2 regular atrial rhythm, distant breath sounds bilaterally, abdomen is obese but benign, lymphedema in the periphery, skin changes noted in the periphery, oral mucosa is normal. Results & Data Vital Signs (Past 12 Hours) Vital Signs Temp Pulse Resp BP Pulse Ox 03/17/19 10:01 98 H 168/77 H 95 03/17/19 09:30 22 03/17/19 09:19 105 H 183/98 H 93 03/17/19 09:17 105 H 195/100 H 95 03/17/19 09:16 106 H 185/101 H 95 03/17/19 08:00 37.6 C H 67 127/63 96 03/17/19 07:51 66 16 98 03/17/19 07:21 66 03/17/19 07:00 66 125/56 L 97 03/17/19 06:00 66 123/60 98 03/17/19 05:56 66 16 98 03/17/19 05:03 37.6 C H 03/17/19 05:00 70 146/62 H 98 03/17/19 04:00 68 140/70 98 03/17/19 03:00 72 142/69 H 97 03/17/19 02:48 70 16 97 03/17/19 02:00 75 137/66 03/17/19 01:00 73 136/64 96 03/17/19 00:22 36.9 C 03/17/19 00:00 69 121/59 L 96 03/16/19 23:33 67 16 97 03/16/19 23:00 70 99/56 L Laboratory Results Labs reviewed, CBC is acceptable. Her ABG shows 7.33/50 8/87. That was done on CPAP of 5 pressure support of 5 with 40% FiO2. BMP showed hypokalemia, and the bicarb is dropping down from 38-33. BUN and creatinine has been stable. She is positive MRSA by the nurse. Diagnostic Findings Chest x-ray showed minimal improvement in her low lung volumes. Otherwise unremarkable.
[2019-03-17] MEDS: FUROSEMIDE 40 MG in SYRINGE 0 ML IV SCH ×2 (11:53→17:33)
[2019-03-17 12:25] LABS: iSTAT Allen Test Pass; iSTAT Arterial Blood Gas HCO3 30 meg/L (19-24); iSTAT Arterial Blood Gas pCO2 56 mmHg (35-46); iSTAT Arterial Blood Gas pH 7.34 (7.35-7.45); iSTAT Carbon Dioxide 31 mEq/l (24-31); iSTAT FiO2 35 %; iSTAT Site R Radial
--- NOTE | 2019-03-17 12:29 | Hospitalist Progress Note ---
Date of Service March 17, 2019 Assessment & Plan (1) Acute on chronic respiratory failure with hypoxia and hypercapnia: On 03/15 at approx. 8:30am, patient had a possible seizure, and went into respiratory distress and possible cardiac arrest. Per telemetry, she was tachycardic in the 90-100 range, went to 70, and became unresponsive. - Coded for approx. 3 minutes with ROSC. Remained hypoxemic and unresponsive, and was intubated - Now in the ICU on mechanical ventilation and unable to wean - On Unasyn for possible aspiration (2) Seizure: Per report from a neighbor, she had a possible seizure over the weekend of 03/10-03/11. (Per admission note, was maybe while sleeping?) EMS was called, but she apparently declined transport to a hospital. Belief is that she had a seizure the morning of 03/15 which precipitated her respiratory arrest; however, this was not witnessed by a physician. - Discussed with Dr. Ordonez and loaded phenytoin as her level was 4 on admission. - Pulm/cc switched to Keppra due to concern for phenytoin lengthening QTc (3) Cardiomyopathy: Chronic systolic heart failure without known exacerbation at this time. Ischemic cardiomyopathy per notes from 2009 which showed EF 40-45%. Per notes, cath in 2010 showed non-occlusive CAD. Echo on 03/16 showed EF 50-55%; valves not well evaluated. - Case discussed with Dr. Shah on 03/[address] elevations seen on EKG. Trop was 0.1, pointing away from acute thrombotic event. Trop down to 0.08 by 03/16. - Seen by cardiology without acute concerns. - Continue ASA; hold beta-karthik for low BP (4) Systolic CHF: As above. (5) Hypokalemia: replace and monitor (6) DM type 2 (diabetes mellitus, type 2): A1c was 6.6% on 03/15/2019. On metformin at home. - Sliding scale insulin (7) HTN (hypertension): On beta-karthik and Lasix at baseline. - Currently low-normal BP; holding HTN meds at present. (8) DVT prophylaxis: Lovenox Subjective Unable to wean pt from vent. Per nursing and forensic dna analyst, pt is alert and follows commands but is not tolerating decreased vent assistance. Pt denies fever, SOB, chest pain, abd pain, n/v/c/d, LE pain or swelling. Review of Systems Review of Systems: Pertinent positives and negatives reviewed in HPI--all others negative Physical Exam Constitutional: WD/WN, vitals as above + morbidly obese; no acute distress Eyes: normal visual hogan by confrontation and + anicteric sclerae Neck: normal visual inspection and trachea midline Respiratory: normal respiratory effort; no respiratory distress Auscultation: + lungs not clear to auscultation (coarse lung sounds on vent) Cardiovascular: Rate/Rhythm: regular rate and regular rhythm Gastrointestinal (Abdomen): Inspection/Auscultation: abdomen not distended Percussion/Palpation: abdomen soft; abdomen nontender Musculoskeletal: Head/Neck/Chest: normocephalic and head atraumatic negative for edema, peripheral pulses intact Skin: no rashes, warm and dry Neurologic: awake Speech / Cognition: + abnormal speech (unable to speak on vent) answering yes/no questions, follows basic commands Psychiatric: Orientation: alert (responds to voice) Results & Data Vital Signs (Past 12 Hours) Vital Signs Temp Pulse Resp BP Pulse Ox 03/17/19 12:02 37.5 C 85 106/65 93 03/17/19 11:07 85 20 93 03/17/19 11:00 85 123/68 93 03/17/19 10:01 98 H 168/77 H 95 03/17/19 09:30 22 03/17/19 09:19 105 H 183/98 H 93 03/17/19 09:17 105 H 195/100 H 95 03/17/19 09:16 106 H 185/101 H 95 03/17/19 08:00 37.6 C H 67 127/63 96 03/17/19 07:51 66 16 98 03/17/19 07:21 66 03/17/19 07:00 66 125/56 L 97 03/17/19 06:00 66 123/60 98 03/17/19 05:56 66 16 98 03/17/19 05:03 37.6 C H 03/17/19 05:00 70 146/62 H 98 03/17/19 04:00 68 140/70 98 03/17/19 03:00 72 142/69 H 97 03/17/19 02:48 70 16 97 03/17/19 02:00 75 137/66 03/17/19 01:00 73 136/64 96
[2019-03-17] MEDS ORDERED: METOPROLOL TARTRATE 25 MG TAB PO SCH (14:00)
[2019-03-17] MEDS ORDERED: LACTULOSE SYRUP 30 GM/45 ML UDP PO PRN (14:29)
[2019-03-17 15:04] LABS: Albumin Level 2.2 gm/dl (3.4-5.0); BUN Creatinine Ratio 10.9 (10-20); Calcium 7.4 mg/dl (8.5-10.1); Creatinine Clr Calc Pharmacy 55.9 ml/min; Est GFR (African American) 58.1; Est GFR (Non-African American) 50.1; Potassium 3.9 mmol/L (3.5-5.1)
[2019-03-17 15:06] LABS: Albumin Globulin Ratio 0.5 (0.9-2); Bilirubin,Total 0.6 mg/dl (0.2-1); Globulin 4.2 gm/dl (2.5-4.0); Total Protein 6.4 gm/dl (6.4-8.2)
[2019-03-17] MEDS: METOPROLOL TARTRATE 1 MG/ML VIAL IV SCH ×2 (15:51→20:18)
[2019-03-17 18:14] LABS: iSTAT Allen Test Pass; iSTAT Arterial Blood Gas HCO3 34 meg/L (19-24); iSTAT Arterial Blood Gas pCO2 81 mmHg (35-46); iSTAT Arterial Blood Gas pH 7.23 (7.35-7.45); iSTAT Carbon Dioxide 36 mEq/l (24-31); iSTAT Site R Radial
[2019-03-18] MEDS: INSULIN ASPART 100 UNITS/ML 3 ML PEN SC SCH ×5 (01:18→21:26)
[2019-03-18] MEDS: AMPICILLIN/SULBACTAM SOD 3,000 MG in 0.9 % SODIUM CHLORIDE 100 ML IV SCH ×3 (01:22→11:51)
[2019-03-18] MEDS: METOPROLOL TARTRATE 1 MG/ML VIAL IV SCH (05:33)
[2019-03-18] MEDS: ASPIRIN 81 MG CHEW GT SCH (08:19)
[2019-03-18] MEDS: TOPIRAMATE 100 MG TAB PO SCH ×2 (08:19→21:24)
[2019-03-18] MEDS: MODAFINIL 100 MG TAB PO SCH (08:20)
[2019-03-18 08:45] LABS: Hematocrit (blood only) 40.6 % (37-47); Hemoglobin 12.3 g/dL (12.0-16.0); Mean Corpuscular Hgb Conc 30.3 g/dL (32-36); Mean Corpuscular Volume 92.5 fL (80-100); Platelet Count 165 K/uL (130-400); RDW Coefficient of Variation 14.5 % (11.5-14.5); RDW Standard Deviation 49.5 fL (36.4-46.3); Red Blood Count 4.39 M/uL (4.2-5.4); White Blood Count 6.82 K/uL (4.8-10.8)
[2019-03-18 09:02] LABS: BUN Creatinine Ratio 13.6 (10-20); Calcium 7.9 mg/dl (8.5-10.1); Creatinine Clr Calc Pharmacy 64.8 ml/min; Est GFR (African American) 71.8; Est GFR (Non-African American) 61.9; Magnesium 1.8 mg/dl (1.8-2.4); Potassium 3.7 mmol/L (3.5-5.1)
[2019-03-18 09:03] LABS: Phosphorus 4.3 mg/dl (2.5-4.9)
[2019-03-18] MEDS: NYSTATIN POWDER 15GM BTL EXT SCH ×4 (09:19→21:25)
[2019-03-18] MEDS: ENOXAPARIN INJ 40 MG/0.4 ML SYR SQ SCH (09:19)
[2019-03-18] MEDS: METOPROLOL TARTRATE 25 MG TAB PO SCH ×2 (09:19→21:25)
[2019-03-18] MEDS: FUROSEMIDE 40 MG in SYRINGE 0 ML IV SCH (09:20)
[2019-03-18] MEDS: ALBUT/IPRATROP 3MG/0.5MG NEB 3 ML VIAL NEB SCH ×3 (09:44→19:04)
--- NOTE | 2019-03-18 10:25 | Critical Care Progress Note ---
Date of Service March 18, 2019 Assessment & Plan (1) Acute on chronic respiratory failure with hypoxia and hypercapnia: Impression: 1. Acute on chronic hypoxic and hypercapnic respiratory failure. 2. V. fib arrest, etiology likely related to sleep breathing disorder. 3. Seizure disorder, noted by the staff that the patient did have a seizure activity as well. 4. Morbid obesity with obesity hypoventilation syndrome. The patient is alert but not initiating any breath, her respiratory drive appears to be suppressed significantly. Noncompliant with CPAP therapy. 5. Chronic wound care. 6. Lymphedema. 7. History of asthma. 8. Acute respiratory failure, with hypoxia and hypercapnia, received Diamox, for 2 doses. 9. Left bundle branch block, T wave inversion was noted, compared to previous EKG this was a new change, cardiology recommended observation only. Plan: 1. Continue BiPAP 14/5 with 12 breath back-up rate and 35% every night nocturnally. I instructed the patient to continue to do so. 2. Change Keppra to 1 g p.o. twice daily. 3. Discontinue Dilantin due to prolonged QT interval and LBBB 4. Discontinue Ritalin. 5. DVT and GI prophylaxis. 6. Change Unasyn to Augmentin 875 mg p.o. twice daily till 03/21/2019. 7. Appreciate cardiology input. 8. The patient will need a dedicated polysomnography with CPAP/BiPAP titration, all her symptoms including seizure disorder, sleep interruption, cardiac arrhythmia, recent cardiac arrest, all can be explained by sleep breathing disorder that has not been diagnosed. 9. Continue Provigil 100 mg p.o. daily. 10. Change Lasix to 40 mg p.o. daily and replace potassium. 11. Out of bed with physical therapy if possible. 12. change lactulose to as needed only. 13. Daily labs. 14. DuoNeb 3 times daily. 15. Avoid sedation. 16. Discussed with the family in details regarding the importance of sleep breathing disorder work-up as an outpatient. She should be compliant with her BiPAP, she has not been using it and nowhere to be found. 17. Disposition plan to PCU. Discussed with the staff on rounds, critical care time spent with the patient was 45 minutes. Subjective The patient is more awake, following commands, she wears a BiPAP overnight for 7 hours, today she is tolerating oral intake, able to swallow the pills, otherwise no events overnight. Review of Systems Review of Systems: Review of system was limited, the patient denies any abdominal pain, no nausea or vomiting, no dysphagia so far, no chest pain, no shortness of breath. The rest of her review of system including 14 systems was unremarkable. Physical Exam Physical Exam: Vital signs are stable, blood pressure slightly elevated, O2 saturation 96% on 4 L, no oral lesions, S1-S2 regular rate and rhythm, lungs are distant breath sounds, abdomen is benign, lymphedema in the periphery, neurologically she is lethargic but nonfocal. Results & Data Vital Signs (Past 12 Hours) Vital Signs Temp Pulse Pulse Resp BP Pulse Ox 03/18/19 09:44 91 H 22 96 03/18/19 09:00 89 144/83 H 98 03/18/19 08:00 36.8 C 87 158/88 H 97 03/18/19 07:14 83 03/18/19 07:00 84 155/85 H 98 03/18/19 05:33 88 131/82 03/18/19 05:19 80 16 96 03/18/19 02:00 37 C 85 130/71 97 03/18/19 01:00 87 130/74 96 03/18/19 00:01 82 121/67 96 03/17/19 23:23 89 19 97 03/17/19 23:01 37 C 91 H 140/63 96 Laboratory Results Labs were reviewed which showed mild hypokalemia. Diagnostic Findings No new diagnostics.
[2019-03-18] MEDS ORDERED: POTASSIUM CHLORIDE PWD 20 MEQ PACK PO STA (10:38)
--- NOTE | 2019-03-18 11:01 | Cardiology Progress Note ---
Date of Service March 18, 2019 Assessment & Plan (1) Acute on chronic respiratory failure with hypoxia and hypercapnia: Acute on chronic hypoxic and hypercapnic secondary to recurrent seizure activity. Telemetry review without further signs or symptoms of arrhythmia Recommend continue potassium supplement potassium greater than 4 (2) NICM (nonischemic cardiomyopathy): Cardiac catheterization performed 2010 demonstrating essentially normal coronary arteries. Repeat echocardiogram performed today demonstrates improved LV systolic function with ejection fraction of 50 to 55%. Septal wall motion consistent with underlying left bundle branch block. Would continue beta-karthik, supplement potassium to avoid atrial arrhythmias especially with the use of Provigil and Ritalin (3) Pericardial effusion: Trivial loculated right lateral pericardial effusion without hemodynamic significance noted on repeat echocardiogram. Carries history of chronic moderate circumferential pericardial effusion. (4) Left bundle branch block: Chronic. (5) Seizure: (6) Elevated troponin I level: Secondary to transient hypoxia in the setting of acute respiratory failure. ECG nondiagnostic due to underlying left bundle branch block. No new regional wall motion on rise with improvement of LV systolic function per repeat resting 2D transthoracic echocardiogram. Subjective Patient was seen and examined, chart, telemetry reviewed. No arrhythmias. Patient now off BiPAP for 3 hours this morning. Denies any focal complaints though limited discussion from patient Oxygenating on 4 L nasal cannula currently Frequent diarrhea this morning Review of Systems Review of Systems: Unobtainable due to cognitive status Physical Exam Constitutional: + morbidly obese Eyes: PERRL, conjunctivae normal, anicteric sclerae Respiratory: Auscultation: + diminished lung sounds Cardiovascular: Rate/Rhythm: regular rate Heart Sounds: no gallop and no murmur Gastrointestinal (Abdomen): Percussion/Palpation: abdomen soft Results & Data Vital Signs (Past 12 Hours) Vital Signs Temp Pulse Pulse Resp BP Pulse Ox 03/18/19 09:44 91 H 22 96 03/18/19 09:00 89 144/83 H 98 03/18/19 08:00 36.8 C 87 158/88 H 97 03/18/19 07:14 83 03/18/19 07:00 84 155/85 H 98 03/18/19 05:33 88 131/82 03/18/19 05:19 80 16 96 03/18/19 02:00 37 C 85 130/71 97 03/18/19 01:00 87 130/74 96 03/18/19 00:01 82 121/67 96 03/17/19 23:23 89 19 97 03/17/19 23:01 37 C 91 H 140/63 96
--- NOTE | 2019-03-18 15:15 | Hospitalist Progress Note ---
Date of Service March 18, 2019 Assessment & Plan (1) Acute on chronic respiratory failure with hypoxia and hypercapnia: On 03/15 at approx. 8:30am, patient had a possible seizure, and went into respiratory distress and possible cardiac arrest. Per telemetry, she was tachycardic in the 90-100 range, went to 70, and became unresponsive. - Coded for approx. 3 minutes with ROSC. Remained hypoxemic and unresponsive, and was intubated - Was difficult to wean off of vent, but extubated om 03/18 and tolerating BIPAP - On Unasyn for possible aspiration (2) Seizure: Per report from a neighbor, she had a possible seizure over the weekend of 03/10-03/11. (Per admission note, was maybe while sleeping?) EMS was called, but she apparently declined transport to a hospital. Belief is that she had a seizure the morning of 03/15 which precipitated her respiratory arrest; however, this was not witnessed by a physician. - Discussed with Dr. Ordonez and loaded phenytoin as her level was 4 on admission. - Pulm/cc switched to Keppra due to concern for phenytoin lengthening QTc (3) Cardiomyopathy: Chronic systolic heart failure without known exacerbation at this time. Ischemic cardiomyopathy per notes from 2009 which showed EF 40-45%. Per notes, cath in 2010 showed non-occlusive CAD. Echo on 03/16 showed EF 50-55%; valves not well evaluated. - Case discussed with Dr. Shah on 03/[address] elevations seen on EKG. Trop was 0.1, pointing away from acute thrombotic event. Trop down to 0.08 by 03/16. - Seen by cardiology without acute concerns. - Continue ASA; hold beta-karthik for low BP (4) Systolic CHF: As above. (5) Hypokalemia: replace and monitor (6) DM type 2 (diabetes mellitus, type 2): A1c was 6.6% on 03/15/2019. On metformin at home. - Sliding scale insulin (7) HTN (hypertension): On beta-karthik and Lasix at baseline. - Currently low-normal BP; holding HTN meds at present. (8) DVT prophylaxis: Lovenox Subjective Pt has been extubated today and is tolerating BIPAP. She is still not overly interactive. Diarrhea issues today. Pt denies fever, SOB, chest pain, abd pain, n/v, LE pain or swelling. Review of Systems Review of Systems: Pertinent positives and negatives reviewed in HPI--all others negative Physical Exam Constitutional: WD/WN, vitals as above + morbidly obese; no acute distress Eyes: normal visual hogan by confrontation and + anicteric sclerae Neck: normal visual inspection and trachea midline Respiratory: normal respiratory effort; no respiratory distress Auscultation: + diminished lung sounds Cardiovascular: Rate/Rhythm: regular rate and regular rhythm Gastrointestinal (Abdomen): Inspection/Auscultation: abdomen not distended Percussion/Palpation: abdomen soft; abdomen nontender Musculoskeletal: Head/Neck/Chest: normocephalic and head atraumatic Skin: no rashes, warm and dry Neurologic: awake Minimal verbalization on BIPAP Psychiatric: Orientation: alert (responds to voice) Results & Data Vital Signs (Past 12 Hours) Vital Signs Temp Pulse Pulse Resp BP Pulse Ox 03/18/19 09:44 91 H 22 96 03/18/19 09:00 89 144/83 H 98 03/18/19 08:00 36.8 C 87 158/88 H 97 03/18/19 07:14 83 03/18/19 07:00 84 155/85 H 98 03/18/19 05:33 88 131/82 03/18/19 05:19 80 16 96
[2019-03-18] MEDS: AMOXICILLIN/CLAVULANATE 875 MG TAB PO SCH (16:34)
[2019-03-18] MEDS ORDERED: ONDANSETRON 4 MG TAB PO PRN (16:48)
[2019-03-18] MEDS: levETIRAcetam 500 MG TAB PO SCH (21:25)
[2019-03-19 06:18] LABS: Basophils # (auto) 0.03 K/uL (0-0.2); Basophils % (auto) 0.4 %; Eosinophils # (auto) 0.43 K/uL (0-0.5); Eosinophils % (auto) 6.2 %; Hemoglobin 12.3 g/dL (12.0-16.0); Immature Granulocytes # (auto) 0.02 K/uL (0.00-0.02); Immature Granulocytes % (auto) 0.3 %; Lymphocytes # (auto) 0.66 K/uL (1.2-3.4); Lymphocytes % (auto) 9.6 %; Mean Corpuscular Hgb Conc 31.5 g/dL (32-36); Mean Corpuscular Volume 90.5 fL (80-100); Mean Platelet Volume 10.1 fL (7.4-10.4); Monocytes # (auto) 0.51 K/uL (0.11-0.59); Monocytes % (auto) 7.4 %; Neutrophils # (auto) 5.24 K/uL (1.4-6.5); Neutrophils % (auto) 76.1 %; Platelet Count 172 K/uL (130-400); RDW Coefficient of Variation 14.3 % (11.5-14.5); Red Blood Count 4.31 M/uL (4.2-5.4); White Blood Count 6.89 K/uL (4.8-10.8)
[2019-03-19 06:47] LABS: BUN Creatinine Ratio 16.7 (10-20); Calcium 8.1 mg/dl (8.5-10.1); Creatinine Clr Calc Pharmacy 81.3 ml/min; Est GFR (African American) 95.8; Est GFR (Non-African American) 82.6; Magnesium 1.8 mg/dl (1.8-2.4); Potassium 3.7 mmol/L (3.5-5.1)
[2019-03-19 06:51] LABS: Phosphorus 2.9 mg/dl (2.5-4.9)
[2019-03-19] MEDS: ALBUT/IPRATROP 3MG/0.5MG NEB 3 ML VIAL NEB SCH ×3 (07:01→20:14)
[2019-03-19] MEDS: levETIRAcetam 500 MG TAB PO SCH ×2 (08:50→20:32)
[2019-03-19] MEDS: ASPIRIN 81 MG CHEW GT SCH (08:50)
[2019-03-19] MEDS: METOPROLOL TARTRATE 25 MG TAB PO SCH ×2 (08:51→20:31)
[2019-03-19] MEDS: TOPIRAMATE 100 MG TAB PO SCH ×2 (08:51→20:33)
[2019-03-19] MEDS: FUROSEMIDE 40 MG TAB PO SCH (08:51)
[2019-03-19] MEDS: AMOXICILLIN/CLAVULANATE 875 MG TAB PO SCH ×2 (08:51→20:33)
[2019-03-19] MEDS: ENOXAPARIN INJ 40 MG/0.4 ML SYR SQ SCH (08:52)
[2019-03-19] MEDS: NYSTATIN POWDER 15GM BTL EXT SCH ×4 (08:52→20:33)
[2019-03-19] MEDS: INSULIN ASPART 100 UNITS/ML 3 ML PEN SC SCH ×4 (08:53→20:36)
[2019-03-19] MEDS: MODAFINIL 100 MG TAB PO SCH (09:03)
--- NOTE | 2019-03-19 10:49 | Cardiology Progress Note ---
Date of Service March 19, 2019 Assessment & Plan (1) Acute on chronic respiratory failure with hypoxia and hypercapnia: Acute on chronic hypoxic and hypercapnic secondary to recurrent seizure activity. Telemetry review without further signs or symptoms of arrhythmia Recommend continue potassium supplement potassium greater than 4, add spironolactone 12.5 mg p.o. daily Patient continues to improve with treatment of underlying pulmonary issues remains driving issue will sign off at this point in time (2) NICM (nonischemic cardiomyopathy): Cardiac catheterization performed 2010 demonstrating essentially normal coronary arteries. Repeat echocardiogram performed today demonstrates improved LV systolic function with ejection fraction of 50 to 55%. Septal wall motion consistent with underlying left bundle branch block. Would continue beta-karthik, supplement potassium to avoid atrial arrhythmias especially with the use of Provigil and Ritalin (3) Pericardial effusion: Trivial loculated right lateral pericardial effusion without hemodynamic significance noted on repeat echocardiogram. Carries history of chronic moderate circumferential pericardial effusion. (4) Left bundle branch block: Chronic. (5) Seizure: (6) Elevated troponin I level: Secondary to transient hypoxia in the setting of acute respiratory failure. ECG nondiagnostic due to underlying left bundle branch block. No new regional wall motion on rise with improvement of LV systolic function per repeat resting 2D transthoracic echocardiogram. Subjective Left bundle branch configuration remains on telemetry Patient seen and examined chart medications telemetry reviewed. No arrhythmias overnight. Respiratory status is stable. Patient requesting to go home no worsening edema. Review of Systems Review of Systems: As per HPI Physical Exam Constitutional: + morbidly obese Eyes: PERRL, conjunctivae normal, anicteric sclerae Respiratory: Auscultation: + diminished lung sounds Cardiovascular: Rate/Rhythm: regular rate Heart Sounds: no gallop and no murmur Lower extremities with chronic stasis changes but no significant edema Gastrointestinal (Abdomen): Percussion/Palpation: abdomen soft Results & Data Vital Signs (Past 12 Hours) Vital Signs Temp Pulse Pulse Resp BP BP Pulse Ox 03/19/19 07:22 37.1 C 97 H 20 134/77 96 03/19/19 07:01 94 H 16 92 03/19/19 04:00 36.8 C 89 123/75 95 03/19/19 00:00 37.3 C 80 75 16 141/83 H 99 03/18/19 23:00 77 17 99 Laboratory Results Laboratory Results - last 24 hr 03/18/19 03/18/1903/18/19 11:27 16:31 21:20 WBC RBC Hgb Hct MCV MCH MCHC RDW Std Deviation RDW Coeff of Ewa Plt Count MPV Immature Gran % (Auto) Neut % (Auto) Lymph % (Auto) [place] % (Auto) Eos % (Auto) Baso % (Auto) Immature Gran # (Auto) Neut # (Auto) Lymph # (Auto) [place] # (Auto) Eos # (Auto) Baso # (Auto) Sodium Potassium Chloride Carbon Dioxide Anion Gap BUN Creatinine Est Cr Clr Drug Dosing Est GFR ( Amer) Est GFR (Non-Af Amer) BUN/Creatinine Ratio Glucose POC Glucose 142 H 110 H 107 H Calcium Phosphorus Magnesium 03/19/19 03/19/19 05:51 05:51 WBC 6.89 RBC 4.31 Hgb 12.3 Hct 39.0 MCV 90.5 MCH 28.5 MCHC 31.5 L RDW Std Deviation 48.0 H RDW Coeff of Ewa 14.3 Plt Count 172 MPV 10.1 Immature Gran % (Auto) 0.3 Neut % (Auto) 76.1 Lymph % (Auto) 9.6 [place] % (Auto) 7.4 Eos % (Auto) 6.2 Baso % (Auto) 0.4 Immature Gran # (Auto) 0.02 Neut # (Auto) 5.24 Lymph # (Auto) 0.66 L [place] # (Auto) 0.51 Eos # (Auto) 0.43 Baso # (Auto) 0.03 Sodium 138 Potassium 3.7 Chloride 101 Carbon Dioxide 33 H Anion Gap 4.0 BUN 13 Creatinine 0.78 Est Cr Clr Drug Dosing 81.3 Est GFR ( Amer) 95.8 Est GFR (Non-Af Amer) 82.6 BUN/Creatinine Ratio 16.7 Glucose 118 H POC Glucose Calcium 8.1 L Phosphorus 2.9 D Magnesium 1.8
[2019-03-19] MEDS: SPIRONOLACTONE 25 MG TAB PO SCH (11:53)
--- NOTE | 2019-03-19 22:12 | Hospitalist Progress Note ---
Date of Service March 19, 2019 Assessment & Plan (1) Acute on chronic respiratory failure with hypoxia and hypercapnia: On 03/15 at approx. 8:30am, patient had a possible seizure, and went into respiratory distress and possible cardiac arrest. Per telemetry, she was tachycardic in the 90-100 range, went to 70, and became unresponsive. - Coded for approx. 3 minutes with ROSC. Remained hypoxemic and unresponsive, and was intubated - Was difficult to wean off of vent, but extubated on 03/18 and tolerating BIPAP - Was on Unasyn for possible aspiration -Switchd to augmentin on 03/18. Will continue. Patient however is now refusing BIPAP, concern that patient will likely go back to respiratory failure if she remains non compliant. Will discuss with pulmonary as they were consulted. (2) Seizure: Per report from a neighbor, she had a possible seizure over the weekend of 03/10-03/11. (Per admission note, was maybe while sleeping?) EMS was called, but she apparently declined transport to a hospital. Belief is that she had a seizure the morning of 03/15 which precipitated her respiratory arrest; however, this was not witnessed by a physician. - Discussed with Dr. Ordonez and loaded phenytoin as her level was 4 on admission. - Pulm/cc switched to Keppra due to concern for phenytoin lengthening QTc will also continue topiramate. (3) Cardiomyopathy: Chronic systolic heart failure without known exacerbation at this time. Ischemic cardiomyopathy per notes from 2009 which showed EF 40-45%. Per notes, cath in 2010 showed non-occlusive CAD. Echo on 03/16 showed EF 50-55%; valves not well evaluated. - Case discussed with Dr. Shah on 03/[address] elevations seen on EKG. Trop was 0.1, pointing away from acute thrombotic event. Trop down to 0.08 by 03/16. - Seen by cardiology without acute concerns. - Continue ASA; on beta blockers again. (4) Systolic CHF: As above. (5) Hypokalemia: replace and monitor (6) DM type 2 (diabetes mellitus, type 2): A1c was 6.6% on 03/15/2019. On metformin at home. - Sliding scale insulin (7) HTN (hypertension): On beta-karthik and Lasix at baseline. - Currently low-normal BP; (8) DVT prophylaxis: Lovenox Spent 35 minutes in management of patient. This included chart review. Subjective Patient seen and examined chart medications telemetry reviewed. No arrhythmias overnight. Patient does not like to communicate verbally. Will have to repeat questions multiple times. She normally nods and shakes head appropriately with first time she hears a specific question. D/W nurse, she is verbal, awake, alert and oriented. She appears to be back to her baseline. Refusing bipap as per nursing. Review of Systems Review of Systems: All systems reviewed & are unremarkable except as noted in HPI & below Physical Exam Physical Exam: Constitutional: WD/WN, vitals as above + morbidly obese; no acute distress Eyes: normal visual hogan by confrontation and + anicteric sclerae Neck: normal visual inspection and trachea midline Respiratory: normal respiratory effort; no respiratory distress Auscultation: + diminished lung sounds, no wheezing. Cardiovascular: Rate/Rhythm: regular rate and regular rhythm Gastrointestinal (Abdomen): Inspection/Auscultation: abdomen not distended Percussion/Palpation: abdomen soft; abdomen nontender Head/Neck/Chest: normocephalic and head atraumatic Skin: no rashes, warm and dry Neurologic: awake Minimal verbalization on BIPAP Psychiatric: Orientation: alert (responds to voice), oriented x 3 as per nurse. Results & Data Vital Signs (Past 12 Hours) Vital Signs Temp Pulse Resp BP Pulse Ox 03/19/19 20:16 96 H 18 95 03/19/19 19:22 36.6 C 96 H 22 143/79 H 95 03/19/19 15:55 37.1 C 95 H 20 129/79 96 03/19/19 15:40 95 H 16 98 03/19/19 11:12 37.0 C 79 17 129/66 90
[2019-03-20 06:48] LABS: Basophils # (auto) 0.04 K/uL (0-0.2); Basophils % (auto) 0.7 %; Eosinophils # (auto) 0.59 K/uL (0-0.5); Eosinophils % (auto) 9.6 %; Hematocrit (blood only) 40.1 % (37-47); Hemoglobin 12.2 g/dL (12.0-16.0); Immature Granulocytes # (auto) 0.02 K/uL (0.00-0.02); Immature Granulocytes % (auto) 0.3 %; Lymphocytes # (auto) 0.89 K/uL (1.2-3.4); Lymphocytes % (auto) 14.5 %; Mean Corpuscular Hgb Conc 30.4 g/dL (32-36); Mean Corpuscular Volume 90.9 fL (80-100); Mean Platelet Volume 10.4 fL (7.4-10.4); Monocytes # (auto) 0.54 K/uL (0.11-0.59); Monocytes % (auto) 8.8 %; Neutrophils # (auto) 4.04 K/uL (1.4-6.5); Neutrophils % (auto) 66.1 %; Platelet Count 200 K/uL (130-400); RDW Coefficient of Variation 14.5 % (11.5-14.5); RDW Standard Deviation 48.7 fL (36.4-46.3); Red Blood Count 4.41 M/uL (4.2-5.4); White Blood Count 6.12 K/uL (4.8-10.8)
[2019-03-20] MEDS: ALBUT/IPRATROP 3MG/0.5MG NEB 3 ML VIAL NEB SCH ×3 (07:01→19:09)
[2019-03-20 07:16] LABS: BUN Creatinine Ratio 15.1 (10-20); Calcium 8.2 mg/dl (8.5-10.1); Est GFR (African American) 94.3; Est GFR (Non-African American) 81.4; Magnesium 1.8 mg/dl (1.8-2.4); Potassium 3.8 mmol/L (3.5-5.1)
[2019-03-20] MEDS: levETIRAcetam 500 MG TAB PO SCH ×2 (08:09→20:51)
[2019-03-20] MEDS: AMOXICILLIN/CLAVULANATE 875 MG TAB PO SCH ×2 (08:09→20:51)
[2019-03-20] MEDS: METOPROLOL TARTRATE 25 MG TAB PO SCH ×2 (08:09→20:50)
[2019-03-20] MEDS: FUROSEMIDE 40 MG TAB PO SCH (08:09)
[2019-03-20] MEDS: SPIRONOLACTONE 25 MG TAB PO SCH (08:10)
[2019-03-20] MEDS: INSULIN ASPART 100 UNITS/ML 3 ML PEN SC SCH ×4 (08:10→20:52)
[2019-03-20] MEDS: ENOXAPARIN INJ 40 MG/0.4 ML SYR SQ SCH (08:10)
[2019-03-20] MEDS: NYSTATIN POWDER 15GM BTL EXT SCH ×4 (08:11→20:52)
[2019-03-20] MEDS: TOPIRAMATE 100 MG TAB PO SCH ×2 (08:11→20:51)
[2019-03-20] MEDS: MODAFINIL 100 MG TAB PO SCH (08:20)
[2019-03-20] MEDS: ASPIRIN 81 MG CHEW GT SCH (08:20)
--- NOTE | 2019-03-20 15:09 | Progress Note ---
DATE: 03/20/2019 PULMONARY MEDICINE PROGRESS NOTE Chart reviewed and the patient examined. SUBJECTIVE: The patient had just completed a meeting with the fibreglass gun hand. She insisted on wanting to be discharged to home rather than go to a rehab facility. She had been tried on BiPAP post-extubation and mechanical ventilator after being post-extubation and receiving mechanical ventilator assistance following ventricular fibrillation arrest and seizure disorder. The patient was last seen on 03/18/[address] Branch from critical care and pulmonary medicine. He concluded the patient had suffered an acute on chronic hypoxic and hypercapnic respiratory failure episode with ventricular fibrillation likely related to sleep breathing disorder and seizure brought on by hypoxemia. She is morbidly obese with probable obesity hypoventilation syndrome. Post-extubation, she was tried on BiPAP, but apparently did not tolerate this and did not want to utilize this therapy at home. She is on Keppra therapy and Dilantin was discontinued due to prolonged QT interval and left bundle-branch block. Ritalin was discontinued. She was switched from Unasyn to Augmentin following what was felt to be a bout of aspiration and this was to be completed on 03/22/2019. She will need a dedicated polysomnograph with CPAP/BiPAP titration as an outpatient. I did discuss with her stay at the rehab facility, [facility], but she wished to go home, but did say she would use a form of noninvasive positive pressure ventilation either in the form of BiPAP or a Trilogy unit at home and perhaps she would tolerate the latter better and be more compliant. I would see if we can get her an AVAPS-AE unit at home with the following settings of tidal volume 550-600 mL, EPAP max at 15 cm and minimum at 4 cm of water pressure with Ps minimum of 6 and maximum of 26 with Pr maximum at 30. I would titrate her O2 with her AVAPS-AE unit and see how well it is tolerated. LANCED
--- NOTE | 2019-03-20 22:55 | Hospitalist Progress Note ---
Date of Service March 20, 2019 Assessment & Plan (1) Acute on chronic respiratory failure with hypoxia and hypercapnia: On 03/15 at approx. 8:30am, patient had a possible seizure, and went into respiratory distress and possible cardiac arrest. Per telemetry, she was tachycardic in the 90-100 range, went to 70, and became unresponsive. - Coded for approx. 3 minutes with ROSC. Remained hypoxemic and unresponsive, and was intubated - Was difficult to wean off of vent, but extubated on 03/18 and tolerating BIPAP - Was on Unasyn for possible aspiration -Switched to augmentin on 03/18. Will continue. Patient however is now refusing BIPAP, concern that patient will likely go back to respiratory failure if she remains non compliant. Will discuss with pulmonary as they were consulted. On 03/20, patient has been ging back and forth with bipap, may consider this at discharge. Patient curently refuses this. i explained to family patient will have a poor outcome if she continues to refuse this. Due to chronic respiratory failure, patient requires non invasive home ventilator. Patient requires a volume targeted mode, therapy without a rate would be ineffective. Without this ventilator supports , patient will have a decline of health status. (2) Seizure: Per report from a neighbor, she had a possible seizure over the weekend of 03/10-03/11. (Per admission note, was maybe while sleeping?) EMS was called, but she apparently declined transport to a hospital. Belief is that she had a seizure the morning of 03/15 which precipitated her respiratory arrest; however, this was not witnessed by a physician. - Discussed with Dr. Ordonez and loaded phenytoin as her level was 4 on admission. - Pulm/cc switched to Keppra due to concern for phenytoin lengthening QTc will also continue topiramate. (3) Cardiomyopathy: Chronic systolic heart failure without known exacerbation at this time. Ischemic cardiomyopathy per notes from 2009 which showed EF 40-45%. Per notes, cath in 2010 showed non-occlusive CAD. Echo on 03/16 showed EF 50-55%; valves not well evaluated. - Case discussed with Dr. Shah on 03/[address] elevations seen on EKG. Trop was 0.1, pointing away from acute thrombotic event. Trop down to 0.08 by 03/16. - Seen by cardiology without acute concerns. - Continue ASA; on beta blockers again. (4) Systolic CHF: As above. (5) Hypokalemia: replace and monitor (6) DM type 2 (diabetes mellitus, type 2): A1c was 6.6% on 03/15/2019. On metformin at home. - Sliding scale insulin (7) HTN (hypertension): On beta-karthik and Lasix at baseline. - Currently low-normal BP; (8) DVT prophylaxis: Aquilinox Spent 35 minutes in management of patient. This included chart review, discussion with patient and family regarding importance of non-invasive home ventilator Subjective Patient reports no new symptoms. She continues to reports being scared of using bipap. Review of Systems Review of Systems: All systems reviewed & are unremarkable except as noted in HPI & below Physical Exam Physical Exam: Constitutional: WD/WN, vitals as above + morbidly obese; no acute distress Eyes: normal visual hogan by confrontation and + anicteric sclerae Neck: normal visual inspection and trachea midline Respiratory: normal respiratory effort; no respiratory distress Auscultation: + diminished lung sounds, no wheezing. Cardiovascular: Rate/Rhythm: regular rate and regular rhythm Gastrointestinal (Abdomen): Inspection/Auscultation: abdomen not distended Percussion/Palpation: abdomen soft; abdomen nontender Head/Neck/Chest: normocephalic and head atraumatic Skin: no rashes, warm and dry Neurologic: awake Minimal verbalization on BIPAP Psychiatric: Orientation: alert (responds to voice), oriented x 3 as per nurse. Results & Data Vital Signs (Past 12 Hours) Vital Signs Temp Pulse Resp BP BP Pulse Ox 03/20/19 19:09 91 H 18 99 03/20/19 19:00 36.8 C 87 16 161/83 H 99 03/20/19 15:33 36.6 C 87 21 101/79 98 03/20/19 14:43 90 18 98 03/20/19 13:20 100 03/20/19 12:11 36.4 C L 87 21 108/80 99
[2019-03-21 07:05] LABS: Basophils # (auto) 0.02 K/uL (0-0.2); Basophils % (auto) 0.4 %; Eosinophils # (auto) 0.47 K/uL (0-0.5); Eosinophils % (auto) 8.3 %; Hematocrit (blood only) 41.2 % (37-47); Hemoglobin 12.7 g/dL (12.0-16.0); Immature Granulocytes # (auto) 0.02 K/uL (0.00-0.02); Immature Granulocytes % (auto) 0.4 %; Lymphocytes # (auto) 0.85 K/uL (1.2-3.4); Mean Corpuscular Hgb Conc 30.8 g/dL (32-36); Mean Corpuscular Volume 90.7 fL (80-100); Mean Platelet Volume 10.3 fL (7.4-10.4); Monocytes # (auto) 0.69 K/uL (0.11-0.59); Monocytes % (auto) 12.1 %; Neutrophils # (auto) 3.63 K/uL (1.4-6.5); Neutrophils % (auto) 63.8 %; Platelet Count 205 K/uL (130-400); RDW Coefficient of Variation 14.6 % (11.5-14.5); RDW Standard Deviation 48.9 fL (36.4-46.3); Red Blood Count 4.54 M/uL (4.2-5.4); White Blood Count 5.68 K/uL (4.8-10.8)
[2019-03-21] MEDS: ALBUT/IPRATROP 3MG/0.5MG NEB 3 ML VIAL NEB SCH ×2 (07:07→13:53)
[2019-03-21 07:45] LABS: BUN Creatinine Ratio 13.2 (10-20); Calcium 8.5 mg/dl (8.5-10.1); Creatinine Clr Calc Pharmacy 68.7 ml/min; Est GFR (African American) 78.4; Est GFR (Non-African American) 67.7; Magnesium 1.9 mg/dl (1.8-2.4); Potassium 3.9 mmol/L (3.5-5.1)
[2019-03-21 07:47] LABS: Phosphorus 3.8 mg/dl (2.5-4.9)
[2019-03-21] MEDS: INSULIN ASPART 100 UNITS/ML 3 ML PEN SC SCH ×2 (07:59→12:15)
[2019-03-21] MEDS: SPIRONOLACTONE 25 MG TAB PO SCH (09:49)
[2019-03-21] MEDS: levETIRAcetam 500 MG TAB PO SCH (09:49)
[2019-03-21] MEDS: METOPROLOL TARTRATE 25 MG TAB PO SCH (09:49)
[2019-03-21] MEDS: FUROSEMIDE 40 MG TAB PO SCH (09:50)
[2019-03-21] MEDS: TOPIRAMATE 100 MG TAB PO SCH (09:50)
[2019-03-21] MEDS: AMOXICILLIN/CLAVULANATE 875 MG TAB PO SCH (09:51)
[2019-03-21] MEDS: ENOXAPARIN INJ 40 MG/0.4 ML SYR SQ SCH (09:51)
[2019-03-21] MEDS: MODAFINIL 100 MG TAB PO SCH (10:46)
[2019-03-21] MEDS: NYSTATIN POWDER 15GM BTL EXT SCH ×2 (10:46→14:18)
[2019-03-21] MEDS: ASPIRIN 81 MG CHEW GT SCH (10:46)
--- NOTE | 2019-03-28 09:58 | Discharge Summary ---
Date of Service March 21, 2019 Admission HPI Per Admitting Provider 58-year-old female was brought in by EMS for concerns for difficulty breathing. Of note, patient was seen in the ED yesterday for similar symptoms. See related note. At that time she left AGAINST MEDICAL ADVICE. - At time of this H&P, patient is breathing relatively comfortably on BiPAP. She does not contribute anything to her history but will primarily nod her head yes or no to questions. She says that her breathing has improved since arrival, she denies any present chest pain or shortness of breath, and shakes her head "no" when asked if any other concerns. - In the room with her is her boyfriend, son, and son's girlfriend. They give a varying history of concerns with seizure-like activity both yesterday and today. This apparent seizure activity was unwitnessed and per the patient's account to them earlier in the day. When asked to clarify, the patient says it happened "during my sleep". The patient's son says that she normally is not on oxygen regularly but that "she put herself back on it" 3 days ago. Her son seemed unaware she had a CPAP machine at home but the boyfriend says that she does, however that she does not use it. - Her sons girlfriend relates the following information: She says yesterday she found the patient working harder to breathe at home. She put a pulse ox on the patient's finger and noted that her heart rate was in the 50s and her room saturation was in the 50s as well. She then applied the patient's home oxygen which brought her oxygen saturation up to the 90s. The girlfriend then decided to run experiment and take her off of the oxygen. She says that the patient's oxygen level dropped to the high 80s within a couple of minutes, so they reapplied the oxygen and the SpO2 again improved. --- Past medical history includes CAD, asthma, cardiomyopathy, COPD, cor pulmonale, diverticulosis, type 2 diabetes, GERD, hypertension, hyperlipidemia, left bundle branch block, lymphedema, MSSA septicemia, obesity, pulmonary embolism, seizure, sleep apnea, systolic congestive heart failure. --- Past surgical history includes sinus surgery, hysterectomy, tubal ligation, rectal polypectomy, D&C. --- Social history includes living with her boyfriend at home. Principal Diagnosis Acute on chronic respiratory failure Discharge Exam Constitutional: WD/WN, vitals as above + morbidly obese; no acute distress Eyes: normal visual hogan by confrontation and + anicteric sclerae Neck: normal visual inspection and trachea midline Respiratory: normal respiratory effort; no respiratory distress Auscultation: + diminished lung sounds, no wheezing. Cardiovascular: Rate/Rhythm: regular rate and regular rhythm Gastrointestinal (Abdomen): Inspection/Auscultation: abdomen not distended Percussion/Palpation: abdomen soft; abdomen nontender Head/Neck/Chest: normocephalic and head atraumatic Skin: no rashes, warm and dry Neurologic: awake Minimal verbalization on BIPAP Psychiatric: Orientation: alert (responds to voice), oriented x 3 Discharge Data Allergies Allergy/AdvReac Type Severity Reaction Status Date / Time ceftaroline fosamil Allergy Mild ITCHING Verified 03/12/19 11:03 HANDS latex Allergy Mild Verified 03/12/19 11:03 SABINE Inhibitors Allergy Unknown Verified 03/12/19 11:03 codeine Allergy Unknown Verified 03/12/19 11:03 erythromycin base Allergy Unknown Verified 03/12/19 11:03 Iodinated Contrast- Oral and Allergy Unknown ` Verified 03/12/19 11:03 IV Dye Penicillins AdvReac Mild MAKES HER Verified 03/12/19 11:03 "FUNNY IN THE HEAD" Consultations 03/14/19 21:01 ED Decision to Admit Stat 03/15/19 02:51 Consult Case Management - Discharge Planning Routine Consult Pulmonology Routine 03/15/19 12:32 Consult Roving Winder Routine 03/15/19 16:12 Consult Cardiology Routine Ordered Studies 03/15/19 09:00 US point of care ultrasound Routine Hospital Course (1) Acute on chronic respiratory failure with hypoxia and hypercapnia: On 03/15 at approx. 8:30am, patient had a possible seizure, and went into respiratory distress and possible cardiac arrest. Per telemetry, she was tachycardic in the 90-100 range, went to 70, and became unresponsive. - Coded for approx. 3 minutes with ROSC. Remained hypoxemic and unresponsive, and was intubated - Was difficult to wean off of vent, but extubated on 03/18 and tolerating BIPAP - Was on Unasyn for possible aspiration -Switched to augmentin on 03/18. Will continue. Patient however is now refusing BIPAP, concern that patient will likely go back to respiratory failure if she remains non compliant. Will discuss with pulmonary as they were consulted. On 03/20, patient has been going back and forth with bipap, may consider this at discharge. Patient curently refuses this. i explained to family patient will have a poor outcome if she continues to refuse this. Due to chronic respiratory failure, patient requires non invasive home ventilator. Patient requires a volume targeted mode, therapy without a rate would be ineffective. Without this ventilator supports , patient will have a decline of health status. On day of discharge, aptient was agreeable to starting non home invasive ventilator. D/C patient on augmentin. (2) Seizure: Per report from a neighbor, she had a possible seizure over the weekend of 03/10-03/11. (Per admission note, was maybe while sleeping?) EMS was called, but she apparently declined transport to a hospital. Belief is that she had a seizure the morning of 03/15 which precipitated her respiratory arrest; however, this was not witnessed by a physician. - Discussed with Dr. Ordonez and loaded phenytoin as her level was 4 on admission. - Pulm/cc switched to Keppra due to concern for phenytoin lengthening QTc will also continue topiramate. (3) Cardiomyopathy: Chronic systolic heart failure without known exacerbation at this time. Ischemic cardiomyopathy per notes from 2009 which showed EF 40-45%. Per notes, cath in 2010 showed non-occlusive CAD. Echo on 03/16 showed EF 50-55%; valves not well evaluated. - Case discussed with Dr. Shah on 03/[address] elevations seen on EKG. Trop was 0.1, pointing away from acute thrombotic event. Trop down to 0.08 by 03/16. - Seen by cardiology without acute concerns. - Continue ASA; on beta blockers again. (4) Systolic CHF: As above. (5) Hypokalemia: replace and monitor (6) DM type 2 (diabetes mellitus, type 2): A1c was 6.6% on 03/15/2019. On metformin at home. - Sliding scale insulin (7) HTN (hypertension): On beta-karthik and Lasix at baseline. - Currently low-normal BP; (8) DVT prophylaxis: Lovenox Total Time Total Time Spent Total Time Spent (In Minutes): 32 Total Time Includes: Examination of the Patient, Discharge Planning and Medication Reconciliation Discharge Plan Discharge Items Patient Disposition: Transfer Inpatient Rehab Fac Reason For Visit: ACUTE ON CHRONIC HYPOXIC RESPIRATORY FAILURE Discharge Diagnosis: Acute on chronic hypoxic respiratory failure Discharge Goals: Decrease discomfort Activity: Resume your previous activity Non-emergency contact: Primary Care Provider Call non-emergency contact if: you have any medication questions Follow-up/Referrals: PCP,NO [Primary Care Provider] - Diet: Carb Consistent or DM2 and Heart Healthy Diet Texture: Dental soft (bite-sized) Diet Comment: Alt. between solid and liquid foods. Fully alert and upright Addtl Provider Instructions: Followup with PCP in 1-2 weeks Followup with PULMONARY in 1-2 weeks F/u with cardiology in 2 weeks Wound care discharge instructions: To both legs: Aquacel Ag to open areas Apply coban lite compression wraps to bilateral lower extremity legs Change Tuesday Patient to elevate legs intermittently Prescriptions: New amoxicillin-pot clavulanate 875-125 mg Tablet 1 tab PO BID Qty: 0 RF: 0 metoprolol succinate [Toprol XL] 50 mg tablet extended release 24 hr 50 mg PO DAILY Qty: 30 RF: 0 levetiracetam [Keppra] 500 mg Tablet 1,000 mg PO BID Qty: 60 RF: 0 spironolactone 25 mg Tablet 12.5 mg PO DAILY Qty: 0 RF: 0 modafinil 100 mg Tablet 100 mg PO QAM Qty: 30 RF: 0 Continued ondansetron HCl [Zofran] 4 mg tablet 4 mg PO Q6H PRN (Reason: Nausea) RF: 0 topiramate [Topamax] 100 mg tablet 100 mg PO .q am RF: 0 topiramate [Topamax] 200 mg tablet 200 mg PO .q hs RF: 0 metformin 500 mg tablet 500 mg PO BID RF: 0 furosemide [Lasix] 40 mg Tablet 40 mg PO QAM RF: 0 aspirin [Aspir-81] 81 mg Tablet,Delayed Release (Dr/Ec) 81 mg PO DAILY RF: 0 nystatin 100,000 unit/gram powder 1 appln TOP QID Qty: 15 RF: 0 Discontinued metoprolol tartrate 50 mg tablet 50 mg PO DAILY RF: 0 phenytoin sodium extended [Dilantin Kapseal] 100 mg capsule 300 mg PO .q pm RF: 0 phenytoin sodium extended [Dilantin Kapseal] 100 mg capsule 200 mg PO .q am RF: 0 ciprofloxacin HCl [Cipro] 500 mg tablet 500 mg PO BID Qty: 60 RF: 1 Stand-Alone Forms: [facility] Discharge Orders: Discharge Order (Routine); Ordered 03/21/19 Ordered By: Ar Florence Skilled Items Patient informed of condition?: Yes DNR: No Discharge Level of Care: Acute rehab Communicable Disease: No Discharge Prognosis: Stable Admission Data Admit Date/Time: 03/15/19 01:17 Attending Provider: Ar Florence Admit Provider: Hung Breaux Primary Care Provider: PCP,NO Other Providers: Jenny Branch ; Andrea Sheldon ; Daniel Conroy ; Chinedu Ricardo Service: Telemetry Other Interventions: Discharge Summary Assessment (RN) Last Done: 03/21/19 16:42 DC Date/Time DO NOT enter until pt leaves facility: 03/21/19 17:43
== END 2019-03-21 17:43 | DRG 208 ==
LOC: ED 19:26 → 2S 03-15 01:17 → SUATTDRO 03-15 01:17 → 2S 03-15 02:35 → 1E 03-15 08:54 → 2E 03-18 15:32
DX: H15.89 Other disorders of sclera; I42.9 Cardiomyopathy, unspecified; Z79.82 Long term (current) use of aspirin; I50.22 Chronic systolic (congestive) heart failure; J96.21 Acute and chronic respiratory failure with hypoxia; I46.9 Cardiac arrest, cause unspecified; Z88.5 Allergy status to narcotic agent; Z88.0 Allergy status to penicillin; Z79.84 Long term (current) use of oral hypoglycemic drugs; Z88.1 Allergy status to other antibiotic agents; R56.9 Unspecified convulsions; J96.22 Acute and chronic respiratory failure with hypercapnia; I11.0 Hypertensive heart disease with heart failure; E11.9 Type 2 diabetes mellitus without complications

== ENCOUNTER 2019-06-20 21:57 | Observation (INO) ==
[2019-06-20] MEDS ORDERED: SODIUM CHLORIDE 0.9% 500 ML IV SCH (23:15)
[2019-06-20] MEDS ORDERED: METOPROLOL SUCC 50MG EXT REL TAB PO STA (23:28)
[2019-06-20 23:56] LABS: Appearance Urine Clear (Clear); Bacteria Urine Automated Negative (Negative); Bilirubin Urine Negative (Negative); Blood Urine Negative (Negative); Color Urine Yellow; Glucose Urine UA Trace (Negative); Ketones Urine Negative (Negative); Leukocyte Esterase Urine Negative (Negative); Nitrite Urine Negative (Negative); RBC Urine Automated 0-4 /hpf (0-4); Specific Gravity Urine 1.018 (1.000-1.030); Urobilinogen Urine Negative (Negative); pH Urine 7.5 (4.5-7.5)
[2019-06-21 00:10] LABS: Basophils # (auto) 0.03 K/uL (0-0.2); Basophils % (auto) 0.4 %; Eosinophils # (auto) 0.08 K/uL (0-0.5); Hematocrit (blood only) 33.8 % (37-47); Hemoglobin 10.6 g/dL (12.0-16.0); Immature Granulocytes # (auto) 0.04 K/uL (0.00-0.02); Immature Granulocytes % (auto) 0.5 %; Lymphocytes # (auto) 0.64 K/uL (1.2-3.4); Lymphocytes % (auto) 7.6 %; Mean Corpuscular Hgb Conc 31.4 g/dL (32-36); Mean Corpuscular Volume 89.2 fL (80-100); Mean Platelet Volume 10.4 fL (7.4-10.4); Monocytes # (auto) 0.45 K/uL (0.11-0.59); Monocytes % (auto) 5.4 %; Neutrophils # (auto) 7.14 K/uL (1.4-6.5); Neutrophils % (auto) 85.1 %; Platelet Count 191 K/uL (130-400); RDW Coefficient of Variation 14.4 % (11.5-14.5); RDW Standard Deviation 46.8 fL (36.4-46.3); Red Blood Count 3.79 M/uL (4.2-5.4); White Blood Count 8.38 K/uL (4.8-10.8)
[2019-06-21 00:12] LABS: Protein Urine Negative (Negative)
[2019-06-21 00:21] LABS: Albumin Level 2.6 gm/dl (3.4-5.0); BUN Creatinine Ratio 17.6 (10-20); Calcium 8.1 mg/dl (8.5-10.1); Creatinine Clr Calc Pharmacy 74.8 ml/min; Est GFR (African American) 82.2; Est GFR (Non-African American) 70.9; Magnesium 2.1 mg/dl (1.8-2.4); Potassium 3.9 mmol/L (3.5-5.1)
[2019-06-21 00:24] LABS: Albumin Globulin Ratio 0.7 (0.9-2); Bilirubin,Total 0.4 mg/dl (0.2-1); Total Protein 6.6 gm/dl (6.4-8.2)
[2019-06-21] MEDS ORDERED: GLUCOSE 40% GEL 15 GM TUBE PO PRN (02:11)
[2019-06-21] MEDS ORDERED: ALUMINUM/MAGNESIUM SUSP 30 ML UDC PO PRN (02:11)
[2019-06-21] MEDS ORDERED: ONDANSETRON INJ 2 MG/ML 2 ML VIAL IV PRN (02:11)
[2019-06-21] MEDS ORDERED: GLUCOSE 10 TABS/TUBE PO PRN (02:11)
[2019-06-21] MEDS ORDERED: GLUCAGON FOR INJ 1 MG VIAL SQ PRN (02:11)
[2019-06-21] MEDS ORDERED: CARBOHYDRATES FOR HYPOGLYCEMIA PO PRN (02:11)
[2019-06-21] MEDS ORDERED: DEXTROSE 50% 50 ML SYRINGE IV PRN (02:11)
[2019-06-21] MEDS ORDERED: MAGNESIUM HYDROXIDE SUSP 30 ML UDC PO PRN (02:11)
[2019-06-21] MEDS ORDERED: POLYETHYLENE (MIRALAX) 17 GM PACK PO PRN (02:11)
--- NOTE | 2019-06-21 02:19 | Emergency Department Note ---
Entered by Sincere Adam acting as a scribe for Rhoda Pulido MD History of Present Illness General Chief complaint: Seizure Time Seen by Provider: 06/20/19 23:00 Source: patient and family History of Present Illness Onset (ago): hour(s) (earlier this evening) Pain Consistency: + now resolved Maximum Pain Intensity: 6 Quality: + other (seizure) Exacerbated By: + other (heat and not taking her medication) Associated symptoms: + denies other symptoms (urinary symptoms) and + other (hot flashes and feeling warm) The patient is a 59 y/o female who presents to the ED w/ CC of a now resolved se izure that occurred earlier this evening. The patient's family states they were at the [facility] this evening when the patient had a seizure. The patient reports she knew her seizure was coming because she started to feel warm and get hot flashes throughout the day. She notes it was hot out today and the heat may have been the cause of her seizure. The patient denies urinary symptoms. The patient's daughter on the phone at bedside states the patient does not take her medications regularly including Keppra and Topamax. The family reports the patient has a history of "a vein disorder" and goes to the wound clinic once a week to have her dressings changed. Nursing staff notes the patient was in a-fib in route to the hospital per EMS and the patient was given 25 mg of IV Cardizem. Home Medications Home Medications Medication Instructions Recorded Confirmed Type ondansetron HCl 4 mg tablet 4 mg PO Q6H PRN tab 06/26/18 06/21/19 History topiramate 100 mg tablet 100 mg PO QAM tab 06/26/18 06/21/19 History topiramate 200 mg tablet 200 mg PO HS tab 06/26/18 06/21/19 History metformin 500 mg tablet 500 mg PO BID 12/04/18 06/21/19 History aspirin [Aspir-81] 81 mg PO DAILY 03/13/19 06/21/19 History furosemide [Lasix] 40 mg PO QAM 03/13/19 06/21/19 History nystatin 1 appln TOP QID #15 gm 03/13/19 06/21/19 Rx levetiracetam [Keppra] 1,000 mg PO BID #60 tab 03/21/19 06/21/19 Rx metoprolol succinate [Toprol XL] 50 mg PO DAILY #30 tab 03/21/19 06/21/19 Rx modafinil 100 mg PO QAM #30 tab 03/21/19 06/21/19 Rx spironolactone 12.5 mg PO DAILY #0 tab 03/21/19 06/21/19 Rx ciprofloxacin 500 mg tablet 500 mg PO BID #60 tab 05/28/19 06/21/19 Rx Allergies Allergy/AdvReac Type Severity Reaction Status Date / Time ceftaroline fosamil Allergy Mild ITCHING Verified 06/18/19 10:58 HANDS latex Allergy Mild Verified 06/18/19 10:58 SABINE Inhibitors Allergy Unknown Verified 06/18/19 10:58 codeine Allergy Unknown Verified 06/18/19 10:58 erythromycin base Allergy Unknown Verified 06/18/19 10:58 Iodinated Contrast- Oral and Allergy Unknown ` Verified 06/18/19 10:58 IV Dye acetaminophen Allergy Verified 06/18/19 10:58 [From Tylenol-Codeine] Iodine and Iodide Containing Allergy Verified 06/18/19 10:58 Produc morphine Allergy Verified 06/18/19 10:58 Penicillins AdvReac Mild MAKES HER Verified 06/18/19 10:58 "FUNNY IN THE HEAD" SABINE Inhibitors Allergy Uncoded 06/18/19 10:58 Contrast Media Ready-Box MISC Allergy Uncoded 06/18/19 10:58 Erythromyci Allergy Uncoded 06/18/19 10:58 Latex Allergy Uncoded 06/18/19 10:58 Penicillins Allergy Uncoded 06/18/19 10:58 Past Med/Surg History Medical History H/O: hysterectomy MSSA (methicillin susceptible Staphylococcus aureus) (Acute) ASCVD (arteriosclerotic cardiovascular disease) (Chronic) Asthma (Chronic) Cardiomyopathy (Chronic) Cellulitis (Chronic) Cor pulmonale (Chronic) Diabetes 1.5, managed as type 2 (Chronic) Diverticulosis (Chronic) Encephalopathy (Chronic) GERD (gastroesophageal reflux disease) (Chronic) Hyperlipidemia LDL goal <100 (Chronic) Left bundle branch block (LBBB) (Chronic) Lymphedema (Chronic) Obesity (Chronic) Rectal polyp (Chronic) Seizure (Chronic) Sleep apnea (Chronic) Systolic CHF (Chronic) Thyroid nodule (Chronic) Tubal ligation status (Chronic) Surgical History H/O sinus surgery (Chronic) Family History Father Hypertension Sister Seizure Brother Seizure Social History Preferred Language: Marshallese Communication Ability: Effective Intravenous Therapy Nurse Required: No Beliefs That Will Affect Care: None Current Living Situation: Significant Other Feels Safe at Home: Yes Smoking Status: Never smoker Second Hand Exposure: No ; Hx Alcohol Use: No Hx Substance Use: No Review of Systems See HPI for pertinent positives & negatives. and A total of 10 systems reviewed and were otherwise negative Physical Exam Vital Signs Vital Signs - 24 hr 06/20/19 22:07 06/20/19 22:14 06/20/19 22:34 Temperature 36.6 C Temperature Source Oral Sepsis Recent Fever Within 48 Hours No Sepsis Action Taken by Nursing No Action Required Pulse Rate 115 H Pulse Rate [Right Finger] 107 H Pulse Rate from SpO2 Sensor Respiratory Rate 20 18 Respiratory Effort / Characteristics Non-Labored Spontaneous Non-Labored Spontaneous Respiratory Depth Normal Normal Respiratory Pattern Regular Regular Blood Pressure 114/60 Blood Pressure [Left Arm] 97/49 L Blood Pressure Mean 78 Blood Pressure Mean [Left Arm] 65 Blood Pressure Position Lying Blood Pressure Position [Left Arm] Lying Pulse Oximetry 95 98 100 Oxygen Delivery Method Room Air Nasal Cannula Nasal Cannula Oxygen Flow Rate 2 2 06/20/19 23:00 06/20/19 23:11 06/20/19 23:34 Temperature Temperature Source Sepsis Recent Fever Within 48 Hours Sepsis Action Taken by Nursing Pulse Rate 108 H 106 H Pulse Rate [Right Finger] Pulse Rate from SpO2 Sensor 107 H 106 H Respiratory Rate 20 20 Respiratory Effort / Characteristics Respiratory Depth Respiratory Pattern Blood Pressure 119/69 128/79 Blood Pressure [Left Arm] Blood Pressure Mean 85 95 Blood Pressure Mean [Left Arm] Blood Pressure Position Blood Pressure Position [Left Arm] Pulse Oximetry 100 99 Oxygen Delivery Method Nasal Cannula Nasal Cannula Nasal Cannula Oxygen Flow Rate 2 2 2 06/21/19 00:31 06/21/19 01:00 Temperature Temperature Source Sepsis Recent Fever Within 48 Hours Sepsis Action Taken by Nursing Pulse Rate 99 H 96 H Pulse Rate [Right Finger] Pulse Rate from SpO2 Sensor 100 H 95 H Respiratory Rate 23 22 Respiratory Effort / Characteristics Respiratory Depth Respiratory Pattern Blood Pressure 123/70 135/72 Blood Pressure [Left Arm] Blood Pressure Mean 87 93 Blood Pressure Mean [Left Arm] Blood Pressure Position Blood Pressure Position [Left Arm] Pulse Oximetry 98 99 Oxygen Delivery Method Nasal Cannula Nasal Cannula Oxygen Flow Rate 2 2 Vital signs reviewed. General: Chronically ill-appearing 59 year old obese female, in no significant distress. HEENT: No scleral icterus, PERRLA, neck supple. Atraumatic. Left eye strabismus. Cardiovascular: Regular rate and rhythm, no extra sounds. Distant heart tones. Pulmonary: Crackles at the bases bilaterally, normal work of breathing. Abdomen: Limited secondary to body habitus, soft, nontender, nondistended, positive bowel sounds. Musculoskeletal: Atraumatic, extensive dressing to the bilateral lower extremitites. Neurologic: Patient awake alert and answers most questions appropriately. Follows commands. Skin: Warm, dry, no rash Course 2302: Past medical records reviewed. The patient was evaluated in room B02. A complete history and physical examination was performed. 2326: Nursing staff called. The patient is currently refusing her CT scan. 0028: I reviewed the patient's case with Dr. Conroy, [facility] Hospitalist. He will evaluate the patient for further management. Administered Medications Discontinued Medications Sodium Chloride (Nss) 500 mls @ 125 mls/hr IV .Q4H MIGUEL Stop: 06/21/19 03:14 Last Admin: 06/21/19 00:04 Dose: 125 mls/hr Documented by: [id number] Levetiracetam 1,000 mg/ (Dextrose) 110 mls @ 440 mls/hr IV NOW STA Stop: 06/20/19 23:20 Last Infusion: 06/21/19 00:43 Dose: 0 mls/hr Documented by: [id number] Admin: 06/21/19 00:04 Dose: 440 mls/hr Documented by: [id number] Metoprolol Succinate (Toprol Xl) 50 mg PO NOW STA Stop: 06/20/19 23:29 Last Admin: 06/21/19 00:04 Dose: 50 mg Documented by: [id number] Medical Decision Making Differential Diagnosis Differential diagnosis includes etiologies such as infection, hypoglycemia, electrolyte abnormalities, cardiac sources, intracerebral event, trauma, toxicologic, neurologic, as well as others were entertained. Medical Records Attestation: I reviewed the patient's medical records. Home Medications Current Medication List: was personally reviewed by me Laboratory Data Attestation: I reviewed the patient's lab results. Result diagrams: 06/20/19 23:54 06/20/19 23:54 Lab Results 06/20/19 06/20/19 06/20/19 Range/Units 23:47 23:54 23:54 WBC 8.38 (4.8-10.8) K/uL RBC 3.79 L (4.2-5.4) M/uL Hgb 10.6 L (12.0-16.0) g/dL Hct 33.8 L (37-47) % MCV 89.2 (80-100) fL MCH 28.0 (25-34) pg MCHC 31.4 L (32-36) g/dL RDW Std Deviation 46.8 H (36.4-46.3) fL RDW Coeff of Ewa 14.4 (11.5-14.5) % Plt Count 191 (130-400) K/uL MPV 10.4 (7.4-10.4) fL Immature Gran % (Auto) 0.5 % Neut % (Auto) 85.1 % Lymph % (Auto) 7.6 % [place] % (Auto) 5.4 % Eos % (Auto) 1.0 % Baso % (Auto) 0.4 % Immature Gran # (Auto) 0.04 H (0.00-0.02) K/uL Neut # (Auto) 7.14 H (1.4-6.5) K/uL Lymph # (Auto) 0.64 L (1.2-3.4) K/uL [place] # (Auto) 0.45 (0.11-0.59) K/uL Eos # (Auto) 0.08 (0-0.5) K/uL Baso # (Auto) 0.03 (0-0.2) K/uL Sodium (136-145) mmol/L Potassium (3.5-5.1) mmol/L Chloride (98-107) mmol/L Carbon Dioxide (21-32) mmol/L Anion Gap (3-11) BUN (7-18) mg/dl Creatinine (0.6-1.2) mg/dl Est Cr Clr Drug Dosing ml/min Est GFR ( Amer) Est GFR (Non-Af Amer) BUN/Creatinine Ratio (10-20) Glucose (70-99) mg/dl Lactate 1.0 (0.4-2.0) mmol/L Calcium (8.5-10.1) mg/dl Magnesium (1.8-2.4) mg/dl Total Bilirubin (0.2-1) mg/dl AST (15-37) U/L ALT (12-78) U/L Alkaline Phosphatase (45-117) U/L Total Protein (6.4-8.2) gm/dl Albumin (3.4-5.0) gm/dl Globulin (2.5-4.0) gm/dl Albumin/Globulin Ratio (0.9-2) Urine Color Yellow Urine Appearance Clear (Clear) Urine pH 7.5 (4.5-7.5) Ur Specific [place] 1.018 (1.000-1.030) Urine Protein Negative (Negative) Urine Glucose (UA) Trace H (Negative) Urine Ketones Negative (Negative) Urine Blood Negative (Negative) Urine Nitrite Negative (Negative) Urine Bilirubin Negative (Negative) Urine Urobilinogen Negative (Negative) Ur Leukocyte Esterase Negative (Negative) Urine WBC (Auto) 1-5 (0-5) /hpf Urine RBC (Auto) 0-4 (0-4) /hpf U Hyaline Cast (Auto) 1-5 (0-5) /lpf U Epithel Cells (Auto) 10-20 H (0-5) /lpf Urine Bacteria (Auto) Negative (Negative) 06/20/19 Range/Units 23:54 WBC (4.8-10.8) K/uL RBC (4.2-5.4) M/uL Hgb (12.0-16.0) g/dL Hct (37-47) % MCV (80-100) fL MCH (25-34) pg MCHC (32-36) g/dL RDW Std Deviation (36.4-46.3) fL RDW Coeff of Ewa (11.5-14.5) % Plt Count (130-400) K/uL MPV (7.4-10.4) fL Immature Gran % (Auto) % Neut % (Auto) % Lymph % (Auto) % [place] % (Auto) % Eos % (Auto) % Baso % (Auto) % Immature Gran # (Auto) (0.00-0.02) K/uL Neut # (Auto) (1.4-6.5) K/uL Lymph # (Auto) (1.2-3.4) K/uL [place] # (Auto) (0.11-0.59) K/uL Eos # (Auto) (0-0.5) K/uL Baso # (Auto) (0-0.2) K/uL Sodium 141 (136-145) mmol/L Potassium 3.9 (3.5-5.1) mmol/L Chloride 105 (98-107) mmol/L Carbon Dioxide 33 H (21-32) mmol/L Anion Gap 2.0 L (3-11) BUN 16 (7-18) mg/dl Creatinine 0.88 (0.6-1.2) mg/dl Est Cr Clr Drug Dosing 74.8 ml/min Est GFR ( Amer) 82.2 Est GFR (Non-Af Amer) 70.9 BUN/Creatinine Ratio 17.6 (10-20) Glucose 227 H (70-99) mg/dl Lactate (0.4-2.0) mmol/L Calcium 8.1 L (8.5-10.1) mg/dl Magnesium 2.1 (1.8-2.4) mg/dl Total Bilirubin 0.4 (0.2-1) mg/dl AST 11 L (15-37) U/L ALT 15 (12-78) U/L Alkaline Phosphatase 139 H (45-117) U/L Total Protein 6.6 (6.4-8.2) gm/dl Albumin 2.6 L (3.4-5.0) gm/dl Globulin 4.0 (2.5-4.0) gm/dl Albumin/Globulin Ratio 0.7 L (0.9-2) Urine Color Urine Appearance (Clear) Urine pH (4.5-7.5) Ur Specific [place] (1.000-1.030) Urine Protein (Negative) Urine Glucose (UA) (Negative) Urine Ketones (Negative) Urine Blood (Negative) Urine Nitrite (Negative) Urine Bilirubin (Negative) Urine Urobilinogen (Negative) Ur Leukocyte Esterase (Negative) Urine WBC (Auto) (0-5) /hpf Urine RBC (Auto) (0-4) /hpf U Hyaline Cast (Auto) (0-5) /lpf U Epithel Cells (Auto) (0-5) /lpf Urine Bacteria (Auto) (Negative) Imaging Data Attestation: I personally reviewed and interpreted this imaging study as follows: My Impression: XR chest 1V portable: Cardiomegaly, pulmonary congestion, limited by body habitus. Radiologist's Impression: Radiology results as stated below per my review and the [facility] radiologist's interpretation: CT HEAD: Comparison:CT head 05/02/16 No acute intracranial finding or significant interval change. Evaluation mildly limited by motion artifact. Radiologist: Bartolome Cadet MD Study ready at 00:03 and initial results transmitted at 00:34 ECG Data Attestation: I personally reviewed and interpreted this ECG as follows: Indication: other (seizure) Rate (beats per minute): 112 Rhythm: sinus tachycardia (likely) Findings: + other (Wide QRS complex, nonspecific intraventricular conduction delay, QTc of 505) and + left axis deviation Comparison ECG Date: from (03/16/19) Change: no significant change (Rate has increased by 43 bpm) Blood Pressure Blood Pressure Findings: Normal blood pressure Blood Pressure Disposition: did not require urgent referral MDM Narrative This patient was evaluated and appeared to be in no significant distress. IV access was obtained and laboratory work was drawn. Patient was placed on the uniform cap operator. EKG reveals no evidence of acute process. Patient's family member states she is noncompliant with her medications. The patient was given 1 g of IV Keppra and her Topamax levels are pending. CT scan of the head was performed and is negative for acute intracranial process. Patient's blood pressure has fluctuated however is stable at this point. She remains in a tachycardia which I believe to be a sinus rhythm. Patient was given p.o. met oprolol as this is her home dose. Patient may be in beta-karthik withdrawal from inconsistently using her medications. Of note the patient was at the [facility] today. She will be evaluated by the hospitalist service for further management. Impression & Plan Seizure, Tachycardia, Noncompliance with medication regimen Discharge Plan Visit Data *Final* Discharge Date/Time: 06/21/19 01:29 Chief Complaint: Seizure ED Provider: Rhoda Pulido Discharge Problem: Seizure, Tachycardia, Noncompliance with medication regimen Patient Disposition: Admitted As Inpatient Discharge Instructions Interventions: ED Discharge Assessment Last Done: 06/21/19 01:29 The scribe's documentation has been prepared under my direction and personally reviewed by me in its entirety. I confirm that the note above accurately reflects all work, treatment, procedures, and medical decision making performed by me.
[2019-06-21] MEDS ORDERED: ACETAMINOPHEN 325 MG TAB PO PRN (04:14)
--- NOTE | 2019-06-21 05:01 | History & Physical Report ---
Date of Service June 21, 2019 Assessment & Plan (1) Seizure disorder: Seizure disorder with seizure activity while at the [facility] on a hot day/medical noncompliance noted by family- Given Keppra 1000 mg IV in the ED. Continue Keppra 1000 mg p.o. twice daily, topiramate 100 mg p.o. every morning and 200 mg p.o. bedtime Present on Admission?: Yes (2) Seizure: See above Present on Admission?: Yes (3) Diabetes mellitus, type II: Hold metformin 500 mg p.o. twice daily. Based on Accu-Cheks before meals and at bedtime with NovoLog coverage per scale Present on Admission?: Yes (4) Noncompliance with medication regimen: Family notes that patient has not been taking medications as directed. Needs to be addressed while in hospital. Present on Admission?: Yes (5) Arteriosclerotic coronary artery disease: CAD/nonischemic cardia myopathy/hypertension- Continue aspirin 81 mg daily, metoprolol succinate 50 mg p.o. daily, furosemide 40 mg every morning and spironolactone 12.5 mg p.o. daily Present on Admission?: Yes (6) Hypertension: See above Present on Admission?: Yes (7) NICM (nonischemic cardiomyopathy): See above Present on Admission?: Yes (8) Asthma: Have available DuoNebs every 4 hours as needed. Present on Admission?: Yes (9) Sleep apnea: Continue modafinil 100 mg every morning Present on Admission?: Yes (10) Esophageal reflux: Not on active treatment at this time Present on Admission?: Yes History of Present Illness Chief Complaint: The patient presents to the emergency department after having a seizure while at the [facility] earlier this evening. Primary Care Provider: Christina Nolasco MD The patient is a 59-year-old female with a past medical history including seizure disorder, CAD, diabetes mellitus, CHF, hypertension and asthma, who was at the [facility] earlier in the day, did not take her seizure medication earlier in the day, was walking around in the hot sun, and developed a seizure there. The patient's family reports that she is not compliant with her medications. In the emergency department the patient was given a loading dose of Keppra 1000 mg IV. Allergies Allergy/AdvReac Type Severity Reaction Status Date / Time ceftaroline fosamil Allergy Mild ITCHING Verified 06/18/19 10:58 HANDS latex Allergy Mild Verified 06/18/19 10:58 SABINE Inhibitors Allergy Unknown Verified 06/18/19 10:58 codeine Allergy Unknown Verified 06/18/19 10:58 erythromycin base Allergy Unknown Verified 06/18/19 10:58 Iodinated Contrast- Oral and Allergy Unknown ` Verified 06/18/19 10:58 IV Dye acetaminophen Allergy Verified 06/18/19 10:58 [From Tylenol-Codeine] Iodine and Iodide Containing Allergy Verified 06/18/19 10:58 Produc morphine Allergy Verified 06/18/19 10:58 Penicillins AdvReac Mild MAKES HER Verified 06/18/19 10:58 "FUNNY IN THE HEAD" SABINE Inhibitors Allergy Uncoded 06/18/19 10:58 Contrast Media Ready-Box MISC Allergy Uncoded 06/18/19 10:58 Erythromyci Allergy Uncoded 06/18/19 10:58 Latex Allergy Uncoded 06/18/19 10:58 Penicillins Allergy Uncoded 06/18/19 10:58 Home Medications Home Medications Medication Instructions Recorded Confirmed Type ondansetron HCl 4 mg tablet 4 mg PO Q6H PRN tab 06/26/18 06/21/19 History topiramate 100 mg tablet 100 mg PO QAM tab 06/26/18 06/21/19 History topiramate 200 mg tablet 200 mg PO HS tab 06/26/18 06/21/19 History metformin 500 mg tablet 500 mg PO BID 12/04/18 06/21/19 History aspirin [Aspir-81] 81 mg PO DAILY 03/13/19 06/21/19 History furosemide [Lasix] 40 mg PO QAM 03/13/19 06/21/19 History nystatin 1 appln TOP QID #15 gm 03/13/19 06/21/19 Rx levetiracetam [Keppra] 1,000 mg PO BID #60 tab 03/21/19 06/21/19 Rx metoprolol succinate [Toprol XL] 50 mg PO DAILY #30 tab 03/21/19 06/21/19 Rx modafinil 100 mg PO QAM #30 tab 03/21/19 06/21/19 Rx spironolactone 12.5 mg PO DAILY #0 tab 03/21/19 06/21/19 Rx ciprofloxacin 500 mg tablet 500 mg PO BID #60 tab 05/28/19 06/21/19 Rx Past Med/Surg History Medical History H/O: hysterectomy MSSA (methicillin susceptible Staphylococcus aureus) (Acute) ASCVD (arteriosclerotic cardiovascular disease) (Chronic) Asthma (Chronic) Cardiomyopathy (Chronic) Cellulitis (Chronic) Cor pulmonale (Chronic) Diabetes 1.5, managed as type 2 (Chronic) Diverticulosis (Chronic) Encephalopathy (Chronic) GERD (gastroesophageal reflux disease) (Chronic) Hyperlipidemia LDL goal <100 (Chronic) Left bundle branch block (LBBB) (Chronic) Lymphedema (Chronic) Obesity (Chronic) Rectal polyp (Chronic) Seizure (Chronic) Sleep apnea (Chronic) Systolic CHF (Chronic) Thyroid nodule (Chronic) Tubal ligation status (Chronic) Surgical History H/O sinus surgery (Chronic) Family History Father Hypertension Sister Seizure Brother Seizure Social History Preferred Language: Albanian Communication Ability: Effective It Infrastructure Engineer Required: No Beliefs That Will Affect Care: None Current Living Situation: Significant Other Feels Safe at Home: Yes Smoking Status: Never smoker Second Hand Exposure: No ; Hx Alcohol Use: No Hx Substance Use: No Review of Systems Review of Systems: The patient denies chest pain, palpitations, shortness of breath, dyspnea on exertion, cough, lower extremity swelling, sore throat, fevers, chills, sweats, nausea, vomiting, diarrhea , constipation, abdominal pain, pelvic pain, blood in urine or stool, dysuria, urinary frequency or urgency, loss of consciousness, rash, abnormal bruising or bleeding, imbalance, focal or generalized weakness, numbness or tingling in arms or legs, generalized arthralgias or myalgias, back or neck pain, or night sweats. The review of systems is otherwise negative other than for that already noted above, and at least 10 systems have been reviewed. Physical Exam Physical Exam: The patient is awake, alert and oriented 3, well developed and well nourished, normocephalic and atraumatic, lying in bed and in no acute distress. HEENT--PERRL, EOMI, mucous membranes and oropharynx dry. Neck--supple. No JVD. No bruits. Thyroid normal, trachea midline, no adenopathy. Heart--normal S1 and S2. No murmurs, rubs or gallops. Lungs--clear bilaterally, no respiratory distress, no accessory muscle use. Abdomen--normal bowel sounds and soft. Nontender. Nondistended. Morbidly obese. Extremities--no cyanosis or clubbing. No edema. There are good distal pulses b/l. Dermatologic--normal skin turgor, normal color, no abnormal lymph nodes, no rash. Neurologic--cranial nerves II through XII grossly intact. Rheumatologic--normal range of motion. Psychiatric--normal affect. Results & Data Vital Signs (Past 12 Hours) Vital Signs Temp Pulse Pulse Resp BP BP Pulse Ox 06/21/19 04:05 88 06/21/19 01:30 87 16 105/54 L 98 06/21/19 01:00 96 H 22 135/72 99 06/21/19 00:31 99 H 23 123/70 98 06/20/19 23:34 106 H 20 128/79 99 06/20/19 23:00 108 H 20 119/69 100 06/20/19 22:34 107 H 18 97/49 L 100 06/20/19 22:14 98 06/20/19 22:07 97.9 F 115 H 20 114/60 95 Laboratory Results Laboratory Results WBC 8.38 K/uL (4.8-10.8) 06/20/19 23:54 RBC 3.79 M/uL (4.2-5.4) L 06/20/19 23:54 Hgb 10.6 g/dL (12.0-16.0) L 06/20/19 23:54 Hct 33.8 % (37-47) L 06/20/19 23:54 MCV 89.2 fL (80-100) 06/20/19 23:54 MCH 28.0 pg (25-34) 06/20/19 23:54 MCHC 31.4 g/dL (32-36) L 06/20/19 23:54 RDW Std Deviation 46.8 fL (36.4-46.3) H 06/20/19 23:54 RDW Coeff of Ewa 14.4 % (11.5-14.5) 06/20/19 23:54 Plt Count 191 K/uL (130-400) 06/20/19 23:54 MPV 10.4 fL (7.4-10.4) 06/20/19 23:54 Immature Gran % (Auto) 0.5 % 06/20/19 23:54 Neut % (Auto) 85.1 % 06/20/19 23:54 Lymph % (Auto) 7.6 % 06/20/19 23:54 [place] % (Auto) 5.4 % 06/20/19 23:54 Eos % (Auto) 1.0 % 06/20/19 23:54 Baso % (Auto) 0.4 % 06/20/19 23:54 Immature Gran # (Auto) 0.04 K/uL (0.00-0.02) H 06/20/19 23:54 Neut # (Auto) 7.14 K/uL (1.4-6.5) H 06/20/19 23:54 Lymph # (Auto) 0.64 K/uL (1.2-3.4) L 06/20/19 23:54 Wy[place] # (Auto) 0.45 K/uL (0.11-0.59) 06/20/19 23:54 Eos # (Auto) 0.08 K/uL (0-0.5) 06/20/19 23:54 Baso # (Auto) 0.03 K/uL (0-0.2) 06/20/19 23:54 Sodium 141 mmol/L (136-145) 06/20/19 23:54 Potassium 3.9 mmol/L (3.5-5.1) 06/20/19 23:54 Chloride 105 mmol/L (98-107) 06/20/19 23:54 Carbon Dioxide 33 mmol/L (21-32) H 06/20/19 23:54 Anion Gap 2.0 (3-11) L 06/20/19 23:54 BUN 16 mg/dl (7-18) 06/20/19 23:54 Creatinine 0.88 mg/dl (0.6-1.2) 06/20/19 23:54 Est Cr Clr Drug Dosing 74.8 ml/min 06/20/19 23:54 Est GFR ( Amer) 82.2 06/20/19 23:54 Est GFR (Non-Af Amer) 70.9 06/20/19 23:54 BUN/Creatinine Ratio 17.6 (10-20) 06/20/19 23:54 Glucose 227 mg/dl (70-99) H 06/20/19 23:54 Lactate 1.0 mmol/L (0.4-2.0) 06/20/19 23:54 Calcium 8.1 mg/dl (8.5-10.1) L 06/20/19 23:54 Magnesium 2.1 mg/dl (1.8-2.4) 06/20/19 23:54 Total Bilirubin 0.4 mg/dl (0.2-1) 06/20/19 23:54 AST 11 U/L (15-37) L 06/20/19 23:54 ALT 15 U/L (12-78) 06/20/19 23:54 Alkaline Phosphatase 139 U/L (45-117) H 06/20/19 23:54 Total Protein 6.6 gm/dl (6.4-8.2) 06/20/19 23:54 Albumin 2.6 gm/dl (3.4-5.0) L 06/20/19 23:54 Globulin 4.0 gm/dl (2.5-4.0) 06/20/19 23:54 Albumin/Globulin Ratio 0.7 (0.9-2) L 06/20/19 23:54 Urine Color Yellow 06/20/19 23:47 Urine Appearance Clear (Clear) 06/20/19 23:47 Urine pH 7.5 (4.5-7.5) 06/20/19 23:47 Ur Specific [place] 1.018 (1.000-1.030) 06/20/19 23:47 Urine Protein Negative (Negative) 06/20/19 23:47 Urine Glucose (UA) Trace (Negative) H 06/20/19 23:47 Urine Ketones Negative (Negative) 06/20/19 23:47 Urine Blood Negative (Negative) 06/20/19 23:47 Urine Nitrite Negative (Negative) 06/20/19 23:47 Urine Bilirubin Negative (Negative) 06/20/19 23:47 Urine Urobilinogen Negative (Negative) 06/20/19 23:47 Ur Leukocyte Esterase Negative (Negative) 06/20/19 23:47 Urine WBC (Auto) 1-5 /hpf (0-5) 06/20/19 23:47 Urine RBC (Auto) 0-4 /hpf (0-4) 06/20/19 23:47 U Hyaline Cast (Auto) 1-5 /lpf (0-5) 06/20/19 23:47 U Epithel Cells (Auto) 10-20 /lpf (0-5) H 06/20/19 23:47 Urine Bacteria (Auto) Negative (Negative) 06/20/19 23:47 Code Status & VTE Plan Code Status Full code VTE Prophylaxis Plan VTE Prophylaxis will be ordered: Yes PG Care Time/CCT Total # of Minutes Spent Total Time Spent with Patient: Total time spent is greater than 50% in coordination of care (as documented) at patient's floor/unit and/or counseling patient:
[2019-06-21] MEDS ORDERED: ALBUT/IPRATROP 3MG/0.5MG NEB 3 ML VIAL NEB PRN (05:04)
--- NOTE | 2019-06-21 06:29 | CT Scan Report ---
CT head/brain wo con CLINICAL HISTORY: seizure COMPARISON STUDY: 05/02/2016 TECHNIQUE: Axial CT of the brain is performed from the vertex to the skull base. IV contrast was not administered for this examination. A dose lowering technique was utilized adhering to the principles of ALARA. CT DOSE: 614.27 mGy.cm FINDINGS: No intra or extra-axial mass lesions are visualized. There is no CT evidence of acute cortical infarc tion. There is no evidence of midline shift. There is no acute hemorrhage. No calvarial fractures ar e visualized. There are minimal white matter hypodensities likely on a small vessel basis. There is no evidence of pathologic ventricular dilatation. There is no evidence of acute sinusitis. There is bilateral mastoid sclerosis. IMPRESSION: No acute intracranial findings Electronically signed by: Abner Tiwari M.D. 06/21/2019 6:28 AM
--- NOTE | 2019-06-21 07:00 | XRay Report ---
XR chest 1V portable CLINICAL HISTORY: seizure, fever, tachycardia COMPARISON STUDY: 03/17/2019 FINDINGS: The heart is enlarged. There is interstitial prominence a finding which may be slightly acc entuated due to the patient's large body habitus. There is no focal pulmonary consolidation. There ar e no significant pleural effusions.[ IMPRESSION: 1. Cardiomegaly and interstitial prominence. The findings could represent mild pulmonary vascular con gestion, or be related to technical factors given the patient's large body habitus. No lobar consolid ation Electronically signed by: Abner Tiwari M.D. 06/21/2019 6:59 AM
[2019-06-21 07:21] LABS: Estimated Average Glucose 148 mg/dl; Hemoglobin A1C 6.8 % (4.5-5.6)
[2019-06-21] MEDS: NYSTATIN POWDER 15GM BTL EXT SCH ×3 (08:26→17:36)
[2019-06-21] MEDS: INSULIN ASPART 100 UNITS/ML 3 ML PEN SC SCH ×3 (08:30→17:34)
[2019-06-21] MEDS ORDERED: ASPIRIN 81 MG ECTAB PO SCH (09:00)
[2019-06-21] MEDS ORDERED: SPIRONOLACTONE 25 MG TAB PO SCH (09:00)
[2019-06-21] MEDS ORDERED: TOPIRAMATE 100 MG TAB PO SCH ×2 (09:00→21:00)
[2019-06-21] MEDS ORDERED: METOPROLOL SUCC 50MG EXT REL TAB PO SCH (09:00)
[2019-06-21] MEDS ORDERED: FUROSEMIDE 40 MG TAB PO SCH (09:00)
[2019-06-21] MEDS ORDERED: MODAFINIL 100 MG TAB PO SCH (09:00)
[2019-06-21] MEDS ORDERED: HEPARIN SOD 5,000 UNIT/0.5 ML VIAL SQ SCH (09:00)
[2019-06-21] MEDS ORDERED: levETIRAcetam 500 MG TAB PO SCH (09:00)
[2019-06-21] MEDS ORDERED: CIPROFLOXACIN 500 MG TAB PO SCH (09:00)
--- NOTE | 2019-06-21 17:22 | Discharge Summary ---
Date of Service June 21, 2019 Admission HPI Per Admitting Provider The patient is a 59-year-old female with a past medical history including seizure disorder, CAD, diabetes mellitus, CHF, hypertension and asthma, who was at the [facility] fair earlier in the day, did not take her seizure medication earlier in the day, was walking around in the hot sun, and developed a seizure there. The patient's family reports that she is not compliant with her medications. In the emergency department the patient was given a loading dose of Keppra 1000 mg IV. Principal Diagnosis Seizure due to Medication Non-Compliance Discharge Exam Constitutional WD/WN, vitals as above ENMT Ears: no hearing impairment Neck normal visual inspection and trachea midline Respiratory normal respiratory effort, lungs clear to auscultation Auscultation: + diminished lung sounds Cardiovascular Rate/Rhythm: regular rate and regular rhythm Gastrointestinal (Abdomen) Inspection/Auscultation: + abnormal bowel sounds Percussion/Palpation: abdomen soft; abdomen nontender Musculoskeletal Head/Neck/Chest: normocephalic and head atraumatic Skin Dressings applied to b/l lower legs with dry skin over toes Neurologic moves all extremities Psychiatric A+Ox3, euthymic affect Estimated Intelligence: + below average estimated intelligence Discharge Data Allergies Allergy/AdvReac Type Severity Reaction Status Date / Time ceftaroline fosamil Allergy Mild ITCHING Verified 06/18/19 10:58 HANDS latex Allergy Mild Verified 06/18/19 10:58 SABINE Inhibitors Allergy Unknown Verified 06/18/19 10:58 codeine Allergy Unknown Verified 06/18/19 10:58 erythromycin base Allergy Unknown Verified 06/18/19 10:58 Iodinated Contrast- Oral and Allergy Unknown ` Verified 06/18/19 10:58 IV Dye acetaminophen Allergy Verified 06/18/19 10:58 [From Tylenol-Codeine] Iodine and Iodide Containing Allergy Verified 06/18/19 10:58 Produc morphine Allergy Verified 06/18/19 10:58 Penicillins AdvReac Mild MAKES HER Verified 06/18/19 10:58 "FUNNY IN THE HEAD" SABINE Inhibitors Allergy Uncoded 06/18/19 10:58 Contrast Media Ready-Box MISC Allergy Uncoded 06/18/19 10:58 Erythromyci Allergy Uncoded 06/18/19 10:58 Latex Allergy Uncoded 06/18/19 10:58 Penicillins Allergy Uncoded 06/18/19 10:58 Consultations 06/21/19 00:18 ED Decision to Admit Stat 06/21/19 02:11 Consult Case Management - Discharge Planning Routine Ordered Studies 06/20/19 23:06 CT head/brain wo con Urgent Hospital Course (1) Seizure disorder: - Patient and family reports that she is not always compliant with taking her medications. Patient states she has a medication dispenser but she doesn't like when people tell her when she should take her medication and reports she normally does take them but maybe not at the time she should. She states she probably does forget her medications but does have people that help organize her medications. - She cannot recall the name of her neurologists but states she sees one here in [place]. She has been seen by [facility] in the past but do not see outpatient records [facility] - She had no further seizure activity while in the hospital and back to baseline mentation. She was educated on the importance of medication compliance and timely administration of medications. - No medications were adjusted as these breakthrough seizure was likely due to medication non-compliance. Will continue her Keppra 1000 mg BID and Topamax 100 mg AM and 200 mg HS. - She is on Cipro for her chronic wounds at this time which can potentially lower the seizure threshold which was discussed with the patient (2) Noncompliance with medication regimen: - As discussed with patient as above (3) Diabetes mellitus, type II: - Continue home Metformin - A1c 6.8 (4) Arteriosclerotic coronary artery disease: - CAD/nonischemic cardiomyopathy/hypertension - Continue aspirin 81 mg daily, metoprolol succinate 50 mg daily, furosemide 40 mg daily and spironolactone 12.5 mg daily (5) Hypertension: - As above (6) NICM (nonischemic cardiomyopathy): - As above (7) Asthma: - H/O asthma/OSCAR/obesity hypoventilation syndrome - H/O admission which resulted in suspected respiratory compromise leading to a seizure and v. fib cardiac arrest - Follows with [facility] (8) Sleep apnea: - Continue modafinil 100 mg every morning - Bipap/CPAP at home Total Time Total Time Spent Total Time Spent (In Minutes): Greater than 30 minutes Discharge Plan Discharge Items Patient Disposition: Home - Home Health Services Reason For Visit: SEIZURE ACTIVITY Discharge Diagnosis: Seizure Discharge Goals: Decrease discomfort, Improve disease control and Improve function Activity: Resume your previous activity Non-emergency contact: Primary Care Provider Call non-emergency contact if: you have any medication questions, your symptoms worsen and you have a fever Follow-up/Referrals: Christina Nolasco MD [Primary Care Provider] - 06/25/19 8:15 am (Please, follow up with Dr. Nolasco on TuesdayJune 25 at 8:15 am. *If you need to change this appointment, call the office at [phone].) Diet: Carb Consistent or DM2 and Heart Healthy Addtl Provider Instructions: Seizure: - You were admitted due to having a seizure. It is important that you consistently take your medications to help prevent seizures. - You should also take your medication at a consistent time each day and stick to this routine. - It is helpful to be mindful of the things that trigger your seizures such as lack of sleep, being dehydrated, and so forth. Do your best to avoid those triggers. - We did not change any of your home medications at this time. If you would have another seizure while taking your medication regularly you may need a new medication or some adjustments however this seizure likely happened because of not taking your medications. - It can be hard to remember medications at times but it is important to do your best to find a way to always remember them. - As well, it is important to take your seizure medication while on your antibiotics. Even though it is a low risk, antibiotics can lower the seizure threshold Prescriptions: Continued ondansetron HCl [Zofran] 4 mg tablet 4 mg PO Q6H PRN (Reason: Nausea) RF: 0 topiramate [Topamax] 100 mg tablet 100 mg PO QAM RF: 0 topiramate [Topamax] 200 mg tablet 200 mg PO HS RF: 0 metformin 500 mg tablet 500 mg PO BID RF: 0 ciprofloxacin HCl [Cipro] 500 mg tablet 500 mg PO BID Qty: 60 RF: 0 furosemide [Lasix] 40 mg Tablet 40 mg PO QAM RF: 0 aspirin [Aspir-81] 81 mg Tablet,Delayed Release (Dr/Ec) 81 mg PO DAILY RF: 0 nystatin 100,000 unit/gram powder 1 appln TOP QID Qty: 15 RF: 0 metoprolol succinate [Toprol XL] 50 mg tablet extended release 24 hr 50 mg PO DAILY Qty: 30 RF: 0 levetiracetam [Keppra] 500 mg Tablet 1,000 mg PO BID Qty: 60 RF: 0 spironolactone 25 mg Tablet 12.5 mg PO DAILY Qty: 0 RF: 0 modafinil 100 mg Tablet 100 mg PO QAM Qty: 30 RF: 0 Stand-Alone Forms: [facility] Discharge Orders: Discharge Order (Routine); Ordered 06/21/19 Ordered By: Jennifer Bolaños Admission Data Admit Date/Time: 06/21/19 01:08 Attending Provider: Octavio Che Admit Provider: Daniel Conroy Primary Care Provider: Christina Nolasco Other Providers: Daniel Conroy Service: Telemetry Medical Other Interventions: Discharge Summary Assessment (RN) Last Done: 06/21/19 15:50 Pending Studies at Discharge: No DC Date/Time DO NOT enter until pt leaves facility: 06/21/19 20:00 Supervising Physician Co-Signing Physician Notes Attending note: patient seen and examined with Jennifer Bolaños PA-C. I agree with her discharge summary. I personally reviewed the labs and imaging findings. Patient had seizure due to non-compliance. Resumed her Keppra and Topamax. Stressed importance of taking medications. - Seizure disorder with seizure due to non-compliance patient stable for discharge, no seizures while admitted d/c home on Keppra and Topamax
== END 2019-06-21 20:00 | disposition home health service (06) ==
LOC: 2W 21:57 → ED 21:57 → SUATTDRO 06-21 01:08 → 2W 06-21 01:29

== ENCOUNTER 2020-03-21 15:48 | Observation (INO) ==
[2020-03-21] MEDS ORDERED: levETIRAcetam 1,000 MG in 0.9 % SODIUM CHLORIDE 100 ML IV STA (16:13)
--- NOTE | 2020-03-21 16:27 | Emergency Department Note ---
History of Present Illness General Chief complaint: Seizure Stated complaint: SEIZURE, PITTING EDEMA TO LEG WOUND Time Seen by Provider: 03/21/20 15:54 Source: patient, family and EMS Mode of arrival: EMS Limitations: altered mental status (Possibly postictal versus uncooperative) and patient cooperation History of Present Illness Provider complaint: Seizure Onset (ago): hour(s) (3 PM today) Location: upper extremity Severity: moderate Pain Consistency: + now resolved Quality: + other (Unresponsive and shaking in the upper extremities) Relieved By: + none Associated symptoms: + headaches (Initially said she had a headache but then denied a headache a minute later); no chest pain, no cough, no fever/chills, no malaise, no nausea/vomiting and no shortness of breath Treatments prior to arrival: none This is a 59-year-old female who presents with a seizure today. She was brought in by EMS. History is limited as the patient is either postictal or very uncooperative. She is described by her granddaughter as a very" stubborn" person. I did obtain most of the history from her granddaughter, Bartolome Richards, who is her optometric technician and witnessed the event today. She states that they went to see the wound care clinic and when they got home she was in a wheelchair. The patient's granddaughter was making her lunch when the patient started to seize. She had shaking of her upper extremities and was unresponsive. This lasted about 5 minutes. She stated at some point she had a period of apnea lasting almost a minute. She had to perform several sternal rubs to get her breathing again. The patient was confused and not very responsive after the seizure and only woke up when EMS arrived. The patient does have a history of seizure disorder and is on Keppra 1000 mg twice daily but her granddaughter states that they are monica if she takes her medicines once a day. The granddaughter states that the patient does not have any intellectual disability or history of stroke. She states that she is just simply stubborn. The patient does not have a POA and makes her own medical decisions according to the granddaughter. She denies any recent illness for the patient and states that she has not had any fevers. She is cared for by the wound clinic for her wounds on her legs. The patient denies any chest pain, shortness of breath, abdominal pain, diarrhea, cough or cold symptoms. She states that she is fine and she wants to go home. She initially stated that she had a headache but then almost immediately retracted this statement. Home Medications Home Medications Medication Instructions Recorded Confirmed Type topiramate 100 mg tablet 100 mg PO QAM tab 06/26/18 03/21/20 History metformin 500 mg tablet 500 mg PO BID 12/04/18 03/21/20 History aspirin [Aspir-81] 81 mg PO DAILY 03/13/19 03/21/20 History furosemide [Lasix] 40 mg PO QAM 03/13/19 03/21/20 History levetiracetam [Keppra] 1,000 mg PO BID #60 tab 03/21/19 03/21/20 Rx metoprolol succinate [Toprol XL] 50 mg PO DAILY #30 tab 03/21/19 03/21/20 Rx spironolactone 12.5 mg PO DAILY #0 tab 03/21/19 03/21/20 Rx atorvastatin 10 mg PO DAILY 08/08/19 03/21/20 History ibuprofen 200 mg PO Q6H PRN 08/08/19 03/21/20 History acetic acid 0.25 % irrigation 1 irrig IRRIGATION DAILY 14 Days 12/20/19 03/21/20 Rx solution #3000 ml albuterol sulfate 90 mcg/actuation 2 puffs INH QID PRN gm 01/25/20 03/21/20 History aerosol inhaler fluticasone furoate 200 1 puffs INH DAILY ea 01/25/20 03/21/20 History mcg/actuation blister powder for inhalation mometasone 0.1 % topical cream 1 applic TOP UD 01/25/20 03/21/20 History nitroglycerin 0.4 mg sublingual 0.4 mg SL Q5M PRN tab 01/25/20 03/21/20 History tablet ciprofloxacin HCl 500 mg tablet 500 mg PO BID #60 tab 02/19/20 03/21/20 Rx doxycycline hyclate 100 mg capsule 100 mg PO BID #60 cap 02/19/20 03/21/20 Rx Allergies Allergy/AdvReac Type Severity Reaction Status Date / Time ceftaroline fosamil Allergy Mild ITCHING Verified 03/21/20 17:19 HANDS latex Allergy Mild Verified 03/21/20 17:19 SABINE Inhibitors Allergy Unknown Verified 03/21/20 17:19 codeine Allergy Unknown Verified 03/21/20 17:19 erythromycin base Allergy Unknown Verified 03/21/20 17:19 Iodinated Contrast Media Allergy Unknown ` Verified 03/21/20 17:19 acetaminophen Allergy Verified 03/21/20 17:19 [From Tylenol-Codeine] Iodine and Iodide Containing Allergy Verified 03/21/20 17:19 Produc morphine Allergy Verified 03/21/20 17:19 Penicillins AdvReac Mild MAKES HER Verified 03/21/20 17:19 "FUNNY IN THE HEAD" SABINE Inhibitors Allergy Unknown Uncoded 03/21/20 17:19 Contrast Media Ready-Box MISC Allergy Unknown Uncoded 03/21/20 17:19 Erythromyci Allergy Unknown Uncoded 03/21/20 17:19 Latex Allergy Unknown Uncoded 03/21/20 17:19 Penicillins Allergy Unknown Uncoded 03/21/20 17:19 Past Med/Surg History Medical History Adenoma of large intestine (Acute) ASCVD (arteriosclerotic cardiovascular disease) (Chronic) Asthma (Chronic) Cardiomyopathy (Chronic) Cellulitis (Chronic) Cor pulmonale (Chronic) Diabetes 1.5, managed as type 2 (Chronic) Diverticulosis (Chronic) DVT (deep venous thrombosis) Encephalopathy (Chronic) GERD (gastroesophageal reflux disease) (Chronic) Hyperlipidemia LDL goal <100 (Chronic) Left bundle branch block (LBBB) (Chronic) Lymphedema (Chronic) MSSA (methicillin susceptible Staphylococcus aureus) (Acute) Obesity (Chronic) Rectal polyp (Chronic) Seizure (Chronic) Sleep apnea (Chronic) Systolic CHF (Chronic) Thyroid nodule (Chronic) Surgical History H/O sinus surgery (Chronic) H/O: hysterectomy Tubal ligation status (Chronic) Family History Father Hypertension Stroke Sister Seizure Brother Seizure Mother Leukemia Social History Preferred Language: Lao Communication Ability: Effective Bit Sharpener Required: No Beliefs That Will Affect Care: None marital status: Life Partner Current Living Situation: Significant Other Feels Safe at Home: Yes Smoking Status: Unknown if ever smoked Hx Alcohol Use: No Hx Substance Use: No Review of Systems See HPI for pertinent positives & negatives. and A total of 10 systems reviewed and were otherwise negative (Reliability of the patient's answers is questionable) Physical Exam Vital Signs Vital Signs - 24 hr 03/21/20 16:00 03/21/20 16:02 03/21/20 16:07 Temperature 36.9 C Temperature Source Oral Pulse Rate 120 H 121 H 110 H Pulse Rate from SpO2 Sensor 120 H 121 H Respiratory Rate 20 23 20 Respiratory Effort / Characteristics Non-Labored Spontaneous Respiratory Depth Normal Blood Pressure 102/60 117/66 Blood Pressure Mean 61 83 Pulse Oximetry 93 92 90 Oxygen Delivery Method Room Air Oxygen Flow Rate 2 2 Sepsis Recent Fever Within 48 Hours No Sepsis New/Unexplained Change in Mental Status No Sepsis Action Taken by Nursing No Action Required Oxygen Flow Rate - Titration Pulse Oximetry Post Tiitration 03/21/20 16:30 03/21/20 16:31 03/21/20 17:00 Temperature Temperature Source Pulse Rate 115 H 116 H 116 H Pulse Rate from SpO2 Sensor 115 H 117 H 116 H Respiratory Rate 19 28 H 19 Respiratory Effort / Characteristics Respiratory Depth Blood Pressure 103/55 L 97/54 L Blood Pressure Mean 70 72 Pulse Oximetry 98 98 98 Oxygen Delivery Method Oxygen Flow Rate 2 2 2 Sepsis Recent Fever Within 48 Hours Sepsis New/Unexplained Change in Mental Status Sepsis Action Taken by Nursing Oxygen Flow Rate - Titration Pulse Oximetry Post Tiitration 03/21/20 17:30 03/21/20 17:52 03/21/20 18:00 Temperature Temperature Source Pulse Rate 120 H Pulse Rate from SpO2 Sensor 117 H Respiratory Rate 15 16 Respiratory Effort / Characteristics Respiratory Depth Blood Pressure 108/60 Blood Pressure Mean 75 Pulse Oximetry 88 L 99 Oxygen Delivery Method Room Air Oxygen Flow Rate 0 2 Sepsis Recent Fever Within 48 Hours Sepsis New/Unexplained Change in Mental Status Sepsis Action Taken by Nursing Oxygen Flow Rate - Titration 2 Pulse Oximetry Post Tiitration 94 03/21/20 18:01 Temperature Temperature Source Pulse Rate Pulse Rate from SpO2 Sensor 119 H Respiratory Rate 20 Respiratory Effort / Characteristics Respiratory Depth Blood Pressure Blood Pressure Mean Pulse Oximetry 99 Oxygen Delivery Method Oxygen Flow Rate 2 Sepsis Recent Fever Within 48 Hours Sepsis New/Unexplained Change in Mental Status Sepsis Action Taken by Nursing Oxygen Flow Rate - Titration Pulse Oximetry Post Tiitration Constitutional: Vital signs reviewed. Eyes: Pupils are equal round reactive to light. Conjunctiva are noninjected. ENT: Normocephalic atraumatic. Pharynx is clear without erythema or exudate. Mucous membranes are moist. Small abrasion to the tip of the tongue without active bleeding. Neck supple without meningeal signs. Respiratory: Clear to auscultation bilaterally. Breath sounds are equal bilat erally. Cardiovascular: Tachycardic. Heart rate 110. Regular rhythm. GI: Soft, nondistended and nontender. Bowel sounds are present. Musculoskeletal: Bilateral lower extremity lymphedema. Both legs wrapped in wound dressing. Integumentary: No cyanosis. or jaundice. Neurological: The patient is awake and alert. No focal deficits. She moves all extremities. No sensory deficits. Cranial nerves are intact. Psychiatric: Normal affect. Course Administered Medications Discontinued Medications Levetiracetam 1,000 mg/ Sodium (Chloride) 100 mls @ 440 mls/hr IV NOW STA Stop: 03/21/20 16:26 Last Infusion: 03/21/20 18:48 Dose: 0 mls/hr Documented by: [id number] Admin: 03/21/20 18:08 Dose: 300 mls/hr Documented by: [id number] Levofloxacin/Dextrose (Levaquin/D5w) 750 mg in 150 mls @ 100 mls/hr IV ONE ONE Stop: 03/21/20 18:53 Last Admin: 03/21/20 19:26 Dose: 100 mls/hr Documented by: [id number] Sodium Chloride (Nss 1000ml) 500 mls @ 999 mls/hr IV .Q31M ONE Stop: 03/21/20 17:59 Last Admin: 03/21/20 19:26 Dose: 999 mls/hr Documented by: [id number] Critical Care Time Critical Care Time: Yes Total Critical Care Time: 40 I have personally spent approximately 40 minutes of critical care time in the direct management of this patient. This includes bedside care, interpretation of diagnostic studies, and testing, discussion with consultants, patient, and family members, and other required patient management activities. These minutes are in excess of all separately billable procedures. Medical Decision Making Differential Diagnosis Seizures, apnea, medication noncompliance, infection, metabolic derangement Medical Records Attestation: I reviewed the patient's medical records. I did perform a limited focused review of portions of the patient's old chart on the electronic medical record. The patient has was seen by the wound clinic on March 19. She is followed by them closely. She was seen here in May of last year for a seizure and was hospitalized. She was also seen in July of last year for seizure-like activity and tachycardia and discharged home. Of note she was tachycardic during her visit in May. Both times she was noted to be noncompliant with medications. Home Medications Current Medication List: was personally reviewed by me Laboratory Data Attestation: I reviewed the patient's lab results. Result diagrams: 03/21/20 17:54 03/21/20 17:54 Lab Results 03/21/20 03/21/20 03/21/20 Range/Units 17:54 17:54 17:54 WBC 9.93 (4.8-10.8) K/uL RBC 4.27 (4.2-5.4) M/uL Hgb 12.0 (12.0-16.0) g/dL Hct 40.3 (37-47) % MCV 94.4 (80-100) fL MCH 28.1 (25-34) pg MCHC 29.8 L (32-36) g/dL RDW Std Deviation 51.0 H (36.4-46.3) fL RDW Coeff of Ewa 14.8 H (11.5-14.5) % Plt Count 202 (130-400) K/uL MPV 10.8 H (7.4-10.4) fL Immature Gran % (Auto) 0.3 % Neut % (Auto) 86.7 % Lymph % (Auto) 5.8 % [place] % (Auto) 6.5 % Eos % (Auto) 0.5 % Baso % (Auto) 0.2 % Immature Gran # (Auto) 0.03 H (0.00-0.02) K/uL Neut # (Auto) 8.60 H (1.4-6.5) K/uL Lymph # (Auto) 0.58 L (1.2-3.4) K/uL [place] # (Auto) 0.65 H (0.11-0.59) K/uL Eos # (Auto) 0.05 (0-0.5) K/uL Baso # (Auto) 0.02 (0-0.2) K/uL Sodium 138 (136-145) mmol/L Potassium 4.0 (3.5-5.1) mmol/L Chloride 98 (98-107) mmol/L Carbon Dioxide 33 H (21-32) mmol/L Anion Gap 7.0 (3-11) BUN 16 (7-18) mg/dl Creatinine 0.96 (0.6-1.2) mg/dl Est Cr Clr Drug Dosing 68.5 ml/min Est GFR ( Amer) 74.0 Est GFR (Non-Af Amer) 63.8 BUN/Creatinine Ratio 16.4 (10-20) Glucose 287 H (70-99) mg/dl Lactate 3.2 H* (0.4-2.0) mmol/L Calcium 9.1 (8.5-10.1) mg/dl Total Bilirubin 0.4 (0.2-1) mg/dl AST 22 (15-37) U/L ALT 21 (12-78) U/L Alkaline Phosphatase 156 H (45-117) U/L Troponin I < 0.015 (0-0.045) ng/ml Total Protein 7.3 (6.4-8.2) gm/dl Albumin 2.8 L (3.4-5.0) gm/dl Globulin 4.5 H (2.5-4.0) gm/dl Albumin/Globulin Ratio 0.6 L (0.9-2) Specimen Hemolysis COVID-19 PCR (Negative) Influenza Type A (PCR) (Neg) Influenza Type B (PCR) (Neg) 03/21/20 03/21/20 Range/Units 18:15 18:15 WBC (4.8-10.8) K/uL RBC (4.2-5.4) M/uL Hgb (12.0-16.0) g/dL Hct (37-47) % MCV (80-100) fL MCH (25-34) pg MCHC (32-36) g/dL RDW Std Deviation (36.4-46.3) fL RDW Coeff of Ewa (11.5-14.5) % Plt Count (130-400) K/uL MPV (7.4-10.4) fL Immature Gran % (Auto) % Neut % (Auto) % Lymph % (Auto) % [place] % (Auto) % Eos % (Auto) % Baso % (Auto) % Immature Gran # (Auto) (0.00-0.02) K/uL Neut # (Auto) (1.4-6.5) K/uL Lymph # (Auto) (1.2-3.4) K/uL [place] # (Auto) (0.11-0.59) K/uL Eos # (Auto) (0-0.5) K/uL Baso # (Auto) (0-0.2) K/uL Sodium (136-145) mmol/L Potassium (3.5-5.1) mmol/L Chloride (98-107) mmol/L Carbon Dioxide (21-32) mmol/L Anion Gap (3-11) BUN (7-18) mg/dl Creatinine (0.6-1.2) mg/dl Est Cr Clr Drug Dosing ml/min Est GFR ( Amer) Est GFR (Non-Af Amer) BUN/Creatinine Ratio (10-20) Glucose (70-99) mg/dl Lactate (0.4-2.0) mmol/L Calcium (8.5-10.1) mg/dl Total Bilirubin (0.2-1) mg/dl AST (15-37) U/L ALT (12-78) U/L Alkaline Phosphatase (45-117) U/L Troponin I (0-0.045) ng/ml Total Protein (6.4-8.2) gm/dl Albumin (3.4-5.0) gm/dl Globulin (2.5-4.0) gm/dl Albumin/Globulin Ratio (0.9-2) Specimen Hemolysis COVID-19 PCR NEGATIVE (Negative) Influenza Type A (PCR) Neg for Influ A (Neg) Influenza Type B (PCR) Neg for Influ B (Neg) ECG Data Attestation: I personally reviewed and interpreted this ECG as follows: Indication: + other (Seizure) Rate (beats per minute): 120 Rhythm: + sinus tachycardia ECG Intervals/blocks: + Left bundle branch block ECG [place]: + Left axis deviation ECG Findings: no PVCs Comparison ECG Date: from (August 08, 2019) Change: no significant change Blood Pressure Blood Pressure Findings: Normal blood pressure MDM Narrative I did evaluate the patient as noted above. The patient is presenting after a seizure. She is either uncooperative or postictal at this time. Her granddaughter describes her as very stubborn and noncompliant with her seizure medications. She states that she does not have any intellectual disability. Seizure precautions were observed. She is noted to have a pulse ox in the high 80s here. She is placed on supplemental oxygen. IV access was established. I did treat her with Keppra 1 g IV after discussion with the ED pharmacist January. I did place an order for continuous cardiac monitoring. The monitor showed sinus tachycardia with a rate of 110 bpm. I did order and personally review the patient's 12-lead EKG as described above. She has sinus tachycardia with a left bundle branch block. I did order and personally reviewed the images of the patient's chest x-ray as described above. She appears to have bibasilar infiltrates. She denies any cough. She was placed in respiratory isolation. I did order a COVID 19 test as well as influenza test. Blood cultures were obtained. I did treat her with Levaquin IV. I did order and review the patient's blood work as noted in the electronic medical record. CBC is unremarkable without leukocytosis or anemia. Her lactic acid is elevated but she did just have a seizure. Troponin is negative. Glucose is 287. I did discuss the test results with the patient. I did recommend hospitalization. She states she is a full code. Her blood pressure was initially normal but it came down, although her tachycardia improved. She was given a bolus of normal saline IV 500 mL. Her blood pressure did improve. I did not give her a large bolus as she has a history of CHF. The case was discussed with the case sealer and the hospitalist service. Her COVID-19 test as well as influenza swab are both negative. She was taken off of respiratory isolation. Impression & Plan Seizure, Hypoxia, Noncompliance with medication regimen, Bilateral pneumonia, Hyperglycemia, Hypotension Discharge Plan Visit Data Chief Complaint: Seizure Stated Complaint: SEIZURE, PITTING EDEMA TO LEG WOUND ED Provider: Chinedu Abbasi Discharge Problem: Seizure, Hypoxia, Noncompliance with medication regimen, Bilateral pneumonia, Hyperglycemia, Hypotension Patient Disposition: Being Evaluated by Hospitalist Forms Stand Alone Forms: My [facility] Prescriptions Prescriptions: No Action topiramate [Topamax] 100 mg tablet 100 mg PO QAM RF: 0 metformin 500 mg tablet 500 mg PO BID RF: 0 acetic acid 0.25 % solution 1 irrig irrigation DAILY 14 Days Qty: 3000 RF: 2 doxycycline hyclate 100 mg capsule 100 mg PO BID Qty: 60 RF: 2 ciprofloxacin HCl [Cipro] 500 mg tablet 500 mg PO BID Qty: 60 RF: 2 Arnuity Ellipta 200 mcg/actuation blister with device 1 puffs INH DAILY RF: 0 mometasone 0.1 % cream 1 applic TOP UD RF: 0 albuterol sulfate 90 mcg/actuation HFA aerosol inhaler 2 puffs INH QID PRN (Reason: Shortness Of Breath Or Wheezing) RF: 0 nitroglycerin 0.4 mg tablet, sublingual 0.4 mg SL Q5M PRN (Reason: Chest Pain) RF: 0 atorvastatin 10 mg Tablet 10 mg PO DAILY RF: 0 ibuprofen 200 mg Capsule 200 mg PO Q6H PRN (Reason: Pain) RF: 0 furosemide [Lasix] 40 mg Tablet 40 mg PO QAM RF: 0 aspirin [Aspir-81] 81 mg Tablet,Delayed Release (Dr/Ec) 81 mg PO DAILY RF: 0 metoprolol succinate [Toprol XL] 50 mg tablet extended release 24 hr 50 mg PO DAILY Qty: 30 RF: 0 levetiracetam [Keppra] 500 mg Tablet 1,000 mg PO BID Qty: 60 RF: 0 spironolactone 25 mg Tablet 12.5 mg PO DAILY Qty: 0 RF: 0 Referrals Referrals: Trisha Castillo MD [Primary Care Provider] - Discharge Problem: Bilateral pneumonia Qualifiers: Pneumonia type: due to unspecified organism Lung location: lower lobe of lung Qualified Code(s): J18.9 - Pneumonia, unspecified organism Hypotension Qualifiers: Hypotension type: unspecified hypotension type Qualified Code(s): I95.9 - Hypotension, unspecified
--- NOTE | 2020-03-21 16:51 | XRay Report ---
SINGLE VIEW CHEST CLINICAL HISTORY: Dyspnea. FINDINGS: 2 AP, portable, upright chest radiographs are compared to study dated 08/08/2019. The examin ation is degraded by portable technique, large body habitus, and patient rotation. The heart is brenden edly enlarged noting atherosclerotic calcification of the thoracic and. There is pulmonary vascular c ongestion. Patchy airspace consolidation is present both lung bases. Small pleural effusions are susp ected. No pneumothorax is seen. The skeletal structures are osteopenic. The bony thorax is grossly in tact. IMPRESSION: 1. Cardiomegaly with evidence of congestive failure. 2. Patchy airspace opacities are present at both lung bases. This could represent atelectasis and/or an infectious/inflammatory pneumonitis. Clinical correlation will be essential. 3. Suspect small pleural effusions. ACT 112: Negative or not required by law. Electronically signed by: Nick Dumont M.D. 03/21/2020 4:49 PM
[2020-03-21] MEDS ORDERED: LEVOFLOXACIN/D5W 750 MG/150 ML BAG IV ONE (17:24)
[2020-03-21] MEDS ORDERED: SODIUM CHLORIDE 0.9% 1000ML 500 ML IV ONE (17:29)
[2020-03-21 18:09] LABS: Basophils # (auto) 0.02 K/uL (0-0.2); Basophils % (auto) 0.2 %; Eosinophils # (auto) 0.05 K/uL (0-0.5); Eosinophils % (auto) 0.5 %; Hematocrit (blood only) 40.3 % (37-47); Immature Granulocytes # (auto) 0.03 K/uL (0.00-0.02); Immature Granulocytes % (auto) 0.3 %; Lymphocytes # (auto) 0.58 K/uL (1.2-3.4); Lymphocytes % (auto) 5.8 %; Mean Corpuscular Hemoglobin 28.1 pg (25-34); Mean Corpuscular Hgb Conc 29.8 g/dL (32-36); Mean Corpuscular Volume 94.4 fL (80-100); Mean Platelet Volume 10.8 fL (7.4-10.4); Monocytes # (auto) 0.65 K/uL (0.11-0.59); Monocytes % (auto) 6.5 %; Neutrophils % (auto) 86.7 %; Platelet Count 202 K/uL (130-400); RDW Coefficient of Variation 14.8 % (11.5-14.5); Red Blood Count 4.27 M/uL (4.2-5.4); White Blood Count 9.93 K/uL (4.8-10.8)
[2020-03-21 18:33] LABS: Alanine Aminotransferase 21 U/L (12-78); Albumin Level 2.8 gm/dl (3.4-5.0); Aspartate Aminotransferase 22 U/L (15-37); BUN Creatinine Ratio 16.4 (10-20); Blood Urea Nitrogen 16 mg/dl (7-18); Calcium 9.1 mg/dl (8.5-10.1); Carbon Dioxide 33 mmol/L (21-32); Chloride 98 mmol/L (98-107); Creatinine Clr Calc Pharmacy 68.5 ml/min; Est GFR (Non-African American) 63.8; Glucose 287 mg/dl (70-99); Sodium 138 mmol/L (136-145)
[2020-03-21 18:40] LABS: Albumin Globulin Ratio 0.6 (0.9-2); Alkaline Phosphatase 156 U/L (45-117); Bilirubin,Total 0.4 mg/dl (0.2-1); Globulin 4.5 gm/dl (2.5-4.0); Total Protein 7.3 gm/dl (6.4-8.2); Troponin I < 0.015 ng/ml (0-0.045)
[2020-03-21 19:12] LABS: Influenza A virus by PCR Neg for Influ A (Neg); Influenza B virus by PCR Neg for Influ B (Neg)
--- NOTE | 2020-03-21 21:06 | History & Physical Report ---
Date of Service March 21, 2020 Assessment & Plan (1) Seizure: Gilma Toro is 59y/o F w/ PMH significant for seizure disorder; presented following a seizure earlier today. Patient is largely unclear about the events leading up to earlier today. Seizure: - patient has known seizures, was supposed to be taking Keppra 1000mg BID PO, but was taking it intermittently, last dose this AM, per family she frequently misses doses. - Last known seizure May 2019. - Keppra level pending - will start IV Keppra 1000mg BID, with Ativan PRN - Uncertain etiology of new seizure, given patient's extensive infection history this may have contributed to new episode - WBC 9.93, glucose 287, admission lactate 3.2 down trended to 1.6, negative troponin - Neurology consulted - EEG ordered Dyspnea: - Chest x-ray: Demonstrated cardiomegaly with evidence of congestive failure, patchy airspace opacities at both lung bases - Given this concern of dyspnea/apneic episode, this increases concern for underlying pulmonary exacerbation: Without clinical findings on exam this may represent residual changes following previous infection/inflammatory process - COVID-19 negative - Received Levaquin in ED, will continue - EKG on admission QTc 514; will monitor on telemetry given prolonged QT and on Levaquin Asthma: - continue home inhaler regimen T2DM: - hold home metformin - continue SSI Venous stasis ulcers of both lower extremities: - patient regularly seen in Wound Care clinic, on Cipro and Doxy at home - will hold home abx at this time given prolonged QTC, and with potential of growth of infection while on these 2 antibiotics - start Daptomycin, monitor kidney function HTN: - continue home regimen Diet: T2DM, Heart Healthy DVT ppx: Code Status: Full code (2) Asthma: (3) Diabetes mellitus, type II: (4) Venous stasis ulcers of both lower extremities: (5) HTN (hypertension): History of Present Illness Primary Care Provider: Trisha Castillo MD Gilma Toro is 59y/o F w/ PMH significant for seizure disorder; presented following a seizure earlier today. Patient is largely unclear about the events leading up to earlier today. Predominant history provided by patient's daughter and granddaughter ([id number]); Patient is described by her granddaughter as a very "stubborn" person. Earlier today she was seen at the wound care clinic and when they got home she was in a wheelchair sitting at the table drinking some coffee, then the patient started to seize. She has had seizures previously, with the most recent one that the daughter is aware of was in May 2019, her seizures predominantly look involve loss of consciousness, with upper extremities shaking and no lower extremity shaking, and today's episode was consistent with this. This episode lasted about 5-7 minutes, she stated at some point she had a period of apnea lasting almost a minute, her granddaughter did several sternal rubs to get her breathing again. Following this episode the patient was confused and not very responsive, and only woke up when EMS arrived. With the patients's history of a seizure disorder, she is supposed to be on Keppra 1000 mg twice daily, but her granddaughter states that they are monica if she takes her medicines once a day. She denies any recent illness for the patient and states that she has not had any fevers. The patient denies any chest pain, shortness of breath, abdominal pain, diarrhea, cough or cold symptoms. Allergies Allergy/AdvReac Type Severity Reaction Status Date / Time ceftaroline fosamil Allergy Mild ITCHING Verified 03/21/20 17:19 HANDS latex Allergy Mild Verified 03/21/20 17:19 SABINE Inhibitors Allergy Unknown Verified 03/21/20 17:19 codeine Allergy Unknown Verified 03/21/20 17:19 erythromycin base Allergy Unknown Verified 03/21/20 17:19 Iodinated Contrast Media Allergy Unknown ` Verified 03/21/20 17:19 acetaminophen Allergy Verified 03/21/20 17:19 [From Tylenol-Codeine] Iodine and Iodide Containing Allergy Verified 03/21/20 17:19 Produc morphine Allergy Verified 03/21/20 17:19 Penicillins AdvReac Mild MAKES HER Verified 03/21/20 17:19 "FUNNY IN THE HEAD" SABINE Inhibitors Allergy Unknown Uncoded 03/21/20 17:19 Contrast Media Ready-Box MISC Allergy Unknown Uncoded 03/21/20 17:19 Erythromyci Allergy Unknown Uncoded 03/21/20 17:19 Latex Allergy Unknown Uncoded 03/21/20 17:19 Penicillins Allergy Unknown Uncoded 03/21/20 17:19 Home Medications Home Medications Medication Instructions Recorded Confirmed Type topiramate 100 mg tablet 100 mg PO QAM tab 06/26/18 03/21/20 History metformin 500 mg tablet 500 mg PO BID 12/04/18 03/21/20 History aspirin [Aspir-81] 81 mg PO DAILY 03/13/19 03/21/20 History furosemide [Lasix] 40 mg PO QAM 03/13/19 03/21/20 History levetiracetam [Keppra] 1,000 mg PO BID #60 tab 03/21/19 03/21/20 Rx metoprolol succinate [Toprol XL] 50 mg PO DAILY #30 tab 03/21/19 03/21/20 Rx spironolactone 12.5 mg PO DAILY #0 tab 03/21/19 03/21/20 Rx atorvastatin 10 mg PO DAILY 08/08/19 03/21/20 History ibuprofen 200 mg PO Q6H PRN 08/08/19 03/21/20 History acetic acid 0.25 % irrigation 1 irrig IRRIGATION DAILY 14 Days 12/20/19 03/21/20 Rx solution #3000 ml albuterol sulfate 90 mcg/actuation 2 puffs INH QID PRN gm 01/25/20 03/21/20 History aerosol inhaler fluticasone furoate 200 1 puffs INH DAILY ea 01/25/20 03/21/20 History mcg/actuation blister powder for inhalation mometasone 0.1 % topical cream 1 applic TOP UD 01/25/20 03/21/20 History nitroglycerin 0.4 mg sublingual 0.4 mg SL Q5M PRN tab 01/25/20 03/21/20 History tablet ciprofloxacin HCl 500 mg tablet 500 mg PO BID #60 tab 02/19/20 03/21/20 Rx doxycycline hyclate 100 mg capsule 100 mg PO BID #60 cap 02/19/20 03/21/20 Rx topiramate 200 mg PO QPM 30 Days #60 tab 03/22/20 Rx Past Med/Surg History Medical History Adenoma of large intestine (Acute) ASCVD (arteriosclerotic cardiovascular disease) (Chronic) Asthma (Chronic) Cardiomyopathy (Chronic) Cellulitis (Chronic) Cor pulmonale (Chronic) Diabetes 1.5, managed as type 2 (Chronic) Diverticulosis (Chronic) DVT (deep venous thrombosis) Encephalopathy (Chronic) GERD (gastroesophageal reflux disease) (Chronic) Hyperlipidemia LDL goal <100 (Chronic) Left bundle branch block (LBBB) (Chronic) Lymphedema (Chronic) MSSA (methicillin susceptible Staphylococcus aureus) (Acute) Obesity (Chronic) Rectal polyp (Chronic) Seizure (Chronic) Sleep apnea (Chronic) Systolic CHF (Chronic) Thyroid nodule (Chronic) Surgical History H/O sinus surgery (Chronic) H/O: hysterectomy Tubal ligation status (Chronic) Family History Father Hypertension Stroke Sister Seizure Brother Seizure Mother Leukemia Social History Preferred Language: Upper Sorbian Communication Ability: Effective Electric Vehicle Electrician Required: No Beliefs That Will Affect Care: None marital status: Life Partner Current Living Situation: Significant Other Current Living Situation Comment: lives with boyfriend, and has home care give rs Other Information That Helps Us Care for You: No Feels Safe at Home: Yes Safety Concerns: Feels Safe At This Time Smoking Status: Former smoker Smoking End Date: 1979 ; Second Hand Exposure: No ; Hx Alcohol Use: No Hx Substance Use: No Review of Systems Review of Systems: All systems reviewed & are unremarkable except as noted in HPI & below Physical Exam Constitutional: WD/WN, vitals as above Eyes: PERRL, conjunctivae normal, anicteric sclerae ENMT: external ear and nose normal, oropharynx normal Neck: normal visual inspection Respiratory: normal respiratory effort, lungs clear to auscultation Cardiovascular: Rate/Rhythm: regular rhythm and + tachycardic Heart Sounds: normal S1 and normal S2; no gallop, no murmur and no cardiac rub Vessels: no JVD Extremities: + pedal edema Gastrointestinal (Abdomen): normal bowel sounds, soft, nontender, no hepatosplenomegaly Musculoskeletal: no cyanosis or clubbing, extremities motor strength 5/5 Skin: stasis dermatitis b/l lower extremities Neurologic: patellar DTR's 2+ bilat, sensation intact Psychiatric: A+Ox3, euthymic affect Lymphatic: + lymphedema Results & Data Results & Data ([facility]) Vital Signs (Past 12 Hours) Vital Signs Temp Pulse Resp BP Pulse Ox 03/21/20 20:30 115 H 20 123/65 98 03/21/20 20:01 113 H 21 98 03/21/20 20:00 114 H 19 113/63 98 03/21/20 19:30 115 H 18 101/53 L 98 03/21/20 19:01 117 H 20 98 03/21/20 19:00 116 H 20 98/58 L 98 03/21/20 18:42 120 H 20 108/67 99 03/21/20 18:31 117 H 17 99 03/21/20 18:30 117 H 20 93/52 L 99 03/21/20 18:01 20 99 03/21/20 18:00 16 108/60 99 03/21/20 17:52 88 L 03/21/20 17:30 120 H 15 03/21/20 17:00 116 H 19 97/54 L 98 03/21/20 16:31 116 H 28 H 98 03/21/20 16:30 115 H 19 103/55 L 98 03/21/20 16:07 36.9 C 110 H 20 117/66 90 03/21/20 16:02 121 H 23 92 03/21/20 16:00 120 H 20 102/60 93 Laboratory Results 03/21/20 03/21/20 03/21/20 Range/Units 20:16 18:15 18:15 WBC (4.8-10.8) K/uL RBC (4.2-5.4) M/uL Hgb (12.0-16.0) g/dL Hct (37-47) % MCV (80-100) fL MCH (25-34) pg MCHC (32-36) g/dL RDW Std Deviation (36.4-46.3) fL RDW Coeff of Ewa (11.5-14.5) % Plt Count (130-400) K/uL MPV (7.4-10.4) fL Immature Gran % (Auto) % Neut % (Auto) % Lymph % (Auto) % Nicholas % (Auto) % Eos % (Auto) % Baso % (Auto) % Immature Gran # (Auto) (0.00-0.02) K/uL Neut # (Auto) (1.4-6.5) K/uL Lymph # (Auto) (1.2-3.4) K/uL Nicholas # (Auto) (0.11-0.59) K/uL Eos # (Auto) (0-0.5) K/uL Baso # (Auto) (0-0.2) K/uL Sodium (136-145) mmol/L Potassium (3.5-5.1) mmol/L Chloride (98-107) mmol/L Carbon Dioxide (21-32) mmol/L Anion Gap (3-11) BUN (7-18) mg/dl Creatinine (0.6-1.2) mg/dl Est Cr Clr Drug Dosing ml/min Est GFR ( Amer) Est GFR (Non-Af Amer) BUN/Creatinine Ratio (10-20) Glucose (70-99) mg/dl Lactate 1.6 (0.4-2.0) mmol/L Calcium (8.5-10.1) mg/dl Total Bilirubin (0.2-1) mg/dl AST (15-37) U/L ALT (12-78) U/L Alkaline Phosphatase (45-117) U/L Troponin I (0-0.045) ng/ml Total Protein (6.4-8.2) gm/dl Albumin (3.4-5.0) gm/dl Globulin (2.5-4.0) gm/dl Albumin/Globulin Ratio (0.9-2) Specimen Hemolysis Levetiracetam COVID-19 PCR NEGATIVE (Negative) Influenza Type A (PCR) Neg for Influ A (Neg) Influenza Type B (PCR) Neg for Influ B (Neg) 03/21/20 03/21/20 03/21/20 Range/Units 17:54 17:54 17:54 WBC (4.8-10.8) K/uL RBC (4.2-5.4) M/uL Hgb (12.0-16.0) g/dL Hct (37-47) % MCV (80-100) fL MCH (25-34) pg MCHC (32-36) g/dL RDW Std Deviation (36.4-46.3) fL RDW Coeff of Ewa (11.5-14.5) % Plt Count (130-400) K/uL MPV (7.4-10.4) fL Immature Gran % (Auto) % Neut % (Auto) % Lymph % (Auto) % Nicholas % (Auto) % Eos % (Auto) % Baso % (Auto) % Immature Gran # (Auto) (0.00-0.02) K/uL Neut # (Auto) (1.4-6.5) K/uL Lymph # (Auto) (1.2-3.4) K/uL Nicholas # (Auto) (0.11-0.59) K/uL Eos # (Auto) (0-0.5) K/uL Baso # (Auto) (0-0.2) K/uL Sodium 138 (136-145) mmol/L Potassium 4.0 (3.5-5.1) mmol/L Chloride 98 (98-107) mmol/L Carbon Dioxide 33 H (21-32) mmol/L Anion Gap 7.0 (3-11) BUN 16 (7-18) mg/dl Creatinine 0.96 (0.6-1.2) mg/dl Est Cr Clr Drug Dosing 68.5 ml/min Est GFR ( Amer) 74.0 Est GFR (Non-Af Amer) 63.8 BUN/Creatinine Ratio 16.4 (10-20) Glucose 287 H (70-99) mg/dl Lactate 3.2 H* (0.4-2.0) mmol/L Calcium 9.1 (8.5-10.1) mg/dl Total Bilirubin 0.4 (0.2-1) mg/dl AST 22 (15-37) U/L ALT 21 (12-78) U/L Alkaline Phosphatase 156 H (45-117) U/L Troponin I < 0.015 (0-0.045) ng/ml Total Protein 7.3 (6.4-8.2) gm/dl Albumin 2.8 L (3.4-5.0) gm/dl Globulin 4.5 H (2.5-4.0) gm/dl Albumin/Globulin Ratio 0.6 L (0.9-2) Specimen Hemolysis Levetiracetam Pending COVID-19 PCR (Negative) Influenza Type A (PCR) (Neg) Influenza Type B (PCR) (Neg) 03/21/20 Range/Units 17:54 WBC 9.93 (4.8-10.8) K/uL RBC 4.27 (4.2-5.4) M/uL Hgb 12.0 (12.0-16.0) g/dL Hct 40.3 (37-47) % MCV 94.4 (80-100) fL MCH 28.1 (25-34) pg MCHC 29.8 L (32-36) g/dL RDW Std Deviation 51.0 H (36.4-46.3) fL RDW Coeff of Ewa 14.8 H (11.5-14.5) % Plt Count 202 (130-400) K/uL MPV 10.8 H (7.4-10.4) fL Immature Gran % (Auto) 0.3 % Neut % (Auto) 86.7 % Lymph % (Auto) 5.8 % Nicholas % (Auto) 6.5 % Eos % (Auto) 0.5 % Baso % (Auto) 0.2 % Immature Gran # (Auto) 0.03 H (0.00-0.02) K/uL Neut # (Auto) 8.60 H (1.4-6.5) K/uL Lymph # (Auto) 0.58 L (1.2-3.4) K/uL Nicholas # (Auto) 0.65 H (0.11-0.59) K/uL Eos # (Auto) 0.05 (0-0.5) K/uL Baso # (Auto) 0.02 (0-0.2) K/uL Sodium (136-145) mmol/L Potassium (3.5-5.1) mmol/L Chloride (98-107) mmol/L Carbon Dioxide (21-32) mmol/L Anion Gap (3-11) BUN (7-18) mg/dl Creatinine (0.6-1.2) mg/dl Est Cr Clr Drug Dosing ml/min Est GFR ( Amer) Est GFR (Non-Af Amer) BUN/Creatinine Ratio (10-20) Glucose (70-99) mg/dl Lactate (0.4-2.0) mmol/L Calcium (8.5-10.1) mg/dl Total Bilirubin (0.2-1) mg/dl AST (15-37) U/L ALT (12-78) U/L Alkaline Phosphatase (45-117) U/L Troponin I (0-0.045) ng/ml Total Protein (6.4-8.2) gm/dl Albumin (3.4-5.0) gm/dl Globulin (2.5-4.0) gm/dl Albumin/Globulin Ratio (0.9-2) Specimen Hemolysis Levetiracetam COVID-19 PCR (Negative) Influenza Type A (PCR) (Neg) Influenza Type B (PCR) (Neg) Code Status & VTE Plan VTE Prophylaxis Plan VTE Prophylaxis will be ordered: Yes Supervising Physician Co-Signing Physician Notes Attending addendum: I have physically seen this patient, have supervised the medical residents activities, and agree with the H&P unless as otherwise noted. Assessment and Plan: Seizure activity with known history of seizure disorder- Patient noncompliant with taking Keppra 1000 mg p.o. twice daily, will resume 1000 mg IV twice daily due to present state of responsiveness. Order EEG. Consult neurology. Patient is COVID -19 negative. Seizure precautions. Zofran 4 mg IV every 6 hours as needed. Famotidine 20 mg IV every 12 hours IV fluids Chronic venous stasis ulcers of bilateral lower extremities- Following with wound care. Hold p.o. Cipro and doxy for now. Placed on daptomycin IV as noted Remainder of orders and notations as noted. Resident Activity Tracking Resident Involvement: Resident Care Provided Care Provided: Adult Hospital Medicine
[2020-03-21] MEDS ORDERED: GLUCOSE 10 TABS/TUBE PO PRN (22:34)
[2020-03-21] MEDS ORDERED: ONDANSETRON INJ 2 MG/ML 2 ML VIAL IV PRN (22:34)
[2020-03-21] MEDS ORDERED: GLUCAGON FOR INJ 1 MG VIAL SQ PRN (22:34)
[2020-03-21] MEDS ORDERED: ALBUTEROL HFA 8 GM INHALER INH PRN (22:34)
[2020-03-21] MEDS ORDERED: GLUCOSE 40% GEL 15 GM TUBE PO PRN (22:34)
[2020-03-21] MEDS ORDERED: CARBOHYDRATES FOR HYPOGLYCEMIA PO PRN (22:34)
[2020-03-21] MEDS ORDERED: DEXTROSE 50% 50 ML SYRINGE IV PRN (22:34)
[2020-03-21] MEDS ORDERED: MICONAZOLE NITRATE POWDER 43 GM EXT PRN (22:45)
[2020-03-21] MEDS ORDERED: LORazepam 2 MG/4 ML VIAL IV PRN (23:07)
[2020-03-21] MEDS ORDERED: DAPTOmycin 300 MG in SYRINGE 0 ML IV SCH (23:30)
[2020-03-21] MEDS ORDERED: ENOXAPARIN INJ 40 MG/0.4 ML SYR SQ SCH (23:30)
[2020-03-21] MEDS: INSULIN ASPART 100 UNITS/ML 3 ML PEN SC SCH (23:40)
[2020-03-22] MEDS ORDERED: IBUPROFEN 800 MG TAB PO PRN (02:21)
[2020-03-22 06:05] LABS: Basophils # (auto) 0.02 K/uL (0-0.2); Basophils % (auto) 0.3 %; Eosinophils # (auto) 0.15 K/uL (0-0.5); Eosinophils % (auto) 2.2 %; Hematocrit (blood only) 36.4 % (37-47); Hemoglobin 10.9 g/dL (12.0-16.0); Immature Granulocytes # (auto) 0.02 K/uL (0.00-0.02); Immature Granulocytes % (auto) 0.3 %; Lymphocytes # (auto) 0.95 K/uL (1.2-3.4); Mean Corpuscular Hemoglobin 28.4 pg (25-34); Mean Corpuscular Hgb Conc 29.9 g/dL (32-36); Mean Corpuscular Volume 94.8 fL (80-100); Mean Platelet Volume 10.9 fL (7.4-10.4); Monocytes # (auto) 0.59 K/uL (0.11-0.59); Monocytes % (auto) 8.7 %; Neutrophils # (auto) 5.08 K/uL (1.4-6.5); Neutrophils % (auto) 74.5 %; Platelet Count 183 K/uL (130-400); RDW Coefficient of Variation 14.7 % (11.5-14.5); RDW Standard Deviation 50.4 fL (36.4-46.3); Red Blood Count 3.84 M/uL (4.2-5.4); White Blood Count 6.81 K/uL (4.8-10.8)
[2020-03-22 06:34] LABS: BUN Creatinine Ratio 19.6 (10-20); Calcium 8.7 mg/dl (8.5-10.1); Creatinine Clr Calc Pharmacy 73.9 ml/min; Est GFR (African American) 81.1; Phosphorus 2.9 mg/dl (2.5-4.9)
[2020-03-22] MEDS ORDERED: levETIRAcetam 1,000 MG in 0.9 % SODIUM CHLORIDE 100 ML IV SCH (07:00)
[2020-03-22 08:00] LABS: Potassium 3.9 mmol/L (3.5-5.1)
[2020-03-22 08:01] LABS: Magnesium 1.9 mg/dl (1.8-2.4)
[2020-03-22] MEDS: INSULIN ASPART 100 UNITS/ML 3 ML PEN SC SCH ×3 (08:22→17:42)
[2020-03-22] MEDS ORDERED: METOPROLOL SUCC 50MG EXT REL TAB PO SCH (09:00)
[2020-03-22] MEDS ORDERED: FUROSEMIDE 40 MG TAB PO SCH (09:00)
[2020-03-22] MEDS ORDERED: SPIRONOLACTONE 12.5 MG TAB PO SCH (09:00)
[2020-03-22] MEDS ORDERED: ATORVASTATIN 10 MG TAB PO SCH (09:00)
[2020-03-22] MEDS ORDERED: DOXYCYCLINE HYCLATE 100 MG CAP PO SCH (09:00)
[2020-03-22] MEDS ORDERED: TOPIRAMATE 100 MG TAB PO SCH ×2 (09:00→21:00)
[2020-03-22] MEDS ORDERED: FLUTICASONE FUROATE 200MCG 14 PUFFS/INHALER INH SCH (09:00)
--- NOTE | 2020-03-22 11:58 | Electrocardiogram Report ---
Test Reason : Blood Pressure : / mmHG Vent. Rate : 120 BPM Atrial Rate : 120 BPM P-R Int : 160 ms QRS Dur : 172 ms QT Int : 364 ms P-R-T Axes : 008 -29 132 degrees QTc Int : 514 ms Sinus tachycardia with occasional Premature ventricular complexes Left bundle branch block Abnormal ECG When compared with ECG of 08-AUG-2019 13:35, Premature ventricular complexes are now Present Confirmed by Salty Humphries ([id number]) on 03/22/2020 11:58:01 AM Referred By: REFERRED SELF Confirmed By:Salty Humphries
--- NOTE | 2020-03-22 11:59 | Family Medicine Progress Note ---
Date of Service March 22, 2020 Assessment & Plan (1) Seizure: 59-year-old female was admitted on 21 Mar 2020 after arriving via EMS for seizures. Acute on chronic seizure disorder, medication noncompliance: Witnessed by granddaughter on Ma. Granddaughter reports she is non-compliant with her Keppra 1 gm twice daily (perhaps takes it once a day maybe). Initial elevated lactate resolved. Admit keppra level pending. Follows with Dr. Pérez ([facility] neurology). - Restarted her home keppra 1000 mg PO BID. Continued home Topamax. EEG ordered on admit. Consulted neurology. Hypoxia: Noted to have SpO2 88% on room air, though she is on 2L NC at home chronically. Reported possible dyspnea/apnea during her seizure as well. pCXR noted bilateral lung base patchy opacities, possible small pleural effusions, some evidence of congestive failure. COVID-19 and influenza negative. Blood cultures sent. - Admitted on Levaquin, but given no overt evidence of pulmonary infection, will discontinue for now. Ordered repeat CXR. Prolonged QTc: QTc 514 on EKG, though does have a left BBB. Will try to avoid Q-T prolonging meds when possible. Diabetes, hyperglycemia: Arrival glucose as high as 321, likely related to the seizure. Normal AG. HbA1c pending. Reportedly only on metformin at home (held on admit). On insulin sliding scale here. Chronic venous insufficiency, venous stasis ulcers of both legs, lymphedema: Chronically followed by wound clinic (last visit 20May). 13May wound culture grew MDR Staph aureus. Please see their notes. Was given daptomycin on admit. - Do not suspect an acute issue with her legs. Restarted her home Cipro and doxycycline. Wound care consulted. - Per outpatient notes, she is pending a referral to [facility] infectious disease. Reportedly potential candidate for IV Dalvance. Anemia: Admit Hb 12 (MCV 95) down to 10.9. Baseline around 12. No evidence of acute bleeding. Monitoring. Ongoing medical issues: - HTN, HLD, CAD, cardiomyopathy, systolic CHF, cor pulmonale, LBBB: February 2019 TTE noted EF 50-55%. Continue home metoprolol succinate, Spironolactone, Lasix 40 mg daily, aspirin. --- Briefly held home Lipitor while on daptomycin. Will restart on Tuesday. - Asthma: Continue home fluticasone. Albuterol prn. - Elevated alk phos: Admit AP 156, which is around her baseline. Remaining LFTs normal. - Obesity: BMI 53. - Sleep apnea: Ordered CPAP. Not sure she has one at home. Code status: Full code. Diet: DM 2, heart healthy. DVT prophy: Lovenox. PT/OT: Deferred. Disbo: Admitted to [facility] telemetry. Patient's granddaughter, Bartolome Richards, is her group fitness assistant department head but not POA. (2) Seizure disorder: (3) Noncompliance with medication regimen: (4) Hypoxia: (5) Prolonged QT interval: (6) Diabetes mellitus, type II: (7) Hyperglycemia: (8) Chronic venous insufficiency: (9) Venous stasis ulcers of both lower extremities: (10) Lymphedema: (11) Anemia: (12) HTN (hypertension): (13) HLD (hyperlipidemia): (14) Cardiomyopathy: (15) Systolic congestive heart failure: (16) Cor pulmonale: (17) Left bundle branch block: (18) Asthma: (19) Elevated alkaline phosphatase level: (20) Obesity: (21) Sleep apnea: Admission and Anticipated Discharge Date Admission Date: March 21, 2020 Supervising Physician Co-Signing Physician Notes Please see attending discharge note on same DOS in the discharge summary Subjective Found patient resting with her eyes closed very comfortably. She opened her eyes to voice. When I said good morning to her, she immediately said that she needs to go home today because she needs to cook for her family for the holiday. She then repeated this 2 or 3 more times. When asked, she says she is in the hospital because she had a seizure. At first she said she takes her medications. On further questioning, she says that she usually forgets to take them at least in the evening because she is "getting old". She says that she is on 2 L of oxygen chronically at home. She presently denies any complaints to include any chest pain, shortness of breath, abdominal pain, headache, extremity pains, or other acute concerns. Review of Systems Review of Systems: Per HPI as above. Physical Exam Physical Exam: General Appearance: Awake, alert & oriented, comfortable in general, NAD. CV: +S1S2 RRR, no murmur. Pulm: Decreased but clear breath sounds throughout. 2 L nasal cannula oxygen in place. Abdomen: +BS, soft, non-tender. Obese habitus. Extremities: 3+ pitting lymphedema in bilateral legs. She has dressings and compression stockings in place up to the knees bilaterally. No noted tenderness on palpation. Neuro: No gross neuro deficits. Results & Data ([facility]) Vital Signs (Past 12 Hours) Vital Signs Temp Pulse Pulse Resp BP Pulse Ox 03/22/20 11:31 37.1 C 88 20 95/63 L 96 03/22/20 08:52 97 H 03/22/20 07:57 37.2 C 90 20 123/66 91 03/22/20 04:21 37.1 C 109 H 18 111/67 92 Laboratory Results 03/22/20 03/22/20 03/22/20 Range/Units 11:40 08:04 07:20 WBC (4.8-10.8) K/uL RBC (4.2-5.4) M/uL Hgb (12.0-16.0) g/dL Hct (37-47) % MCV (80-100) fL MCH (25-34) pg MCHC (32-36) g/dL RDW Std Deviation (36.4-46.3) fL RDW Coeff of Ewa (11.5-14.5) % Plt Count (130-400) K/uL MPV (7.4-10.4) fL Immature Gran % (Auto) % Neut % (Auto) % Lymph % (Auto) % Rawlins % (Auto) % Eos % (Auto) % Baso % (Auto) % Immature Gran # (Auto) (0.00-0.02) K/uL Neut # (Auto) (1.4-6.5) K/uL Lymph # (Auto) (1.2-3.4) K/uL Rawlins # (Auto) (0.11-0.59) K/uL Eos # (Auto) (0-0.5) K/uL Baso # (Auto) (0-0.2) K/uL Sodium (136-145) mmol/L Potassium 3.9 (3.5-5.1) mmol/L Chloride (98-107) mmol/L Carbon Dioxide (21-32) mmol/L Anion Gap (3-11) BUN (7-18) mg/dl Creatinine (0.6-1.2) mg/dl Est Cr Clr Drug Dosing ml/min Est GFR ( Amer) Est GFR (Non-Af Amer) BUN/Creatinine Ratio (10-20) Glucose (70-99) mg/dl POC Glucose 216 H 191 H (70-99) mg/dl Estimat Average Glucose Hemoglobin A1c Lactate (0.4-2.0) mmol/L Calcium (8.5-10.1) mg/dl Phosphorus (2.5-4.9) mg/dl Magnesium 1.9 (1.8-2.4) mg/dl Total Bilirubin (0.2-1) mg/dl AST (15-37) U/L ALT (12-78) U/L Alkaline Phosphatase (45-117) U/L Troponin I (0-0.045) ng/ml Total Protein (6.4-8.2) gm/dl Albumin (3.4-5.0) gm/dl Globulin (2.5-4.0) gm/dl Albumin/Globulin Ratio (0.9-2) Specimen Hemolysis Levetiracetam COVID-19 PCR (Negative) Hepatitis C Ab Screen (Neg) Influenza Type A (PCR) (Neg) Influenza Type B (PCR) (Neg) 03/22/20 03/22/20 03/22/20 Range/Units 05:40 05:40 05:40 WBC 6.81 (4.8-10.8) K/uL RBC 3.84 L (4.2-5.4) M/uL Hgb 10.9 L (12.0-16.0) g/dL Hct 36.4 L (37-47) % MCV 94.8 (80-100) fL MCH 28.4 (25-34) pg MCHC 29.9 L (32-36) g/dL RDW Std Deviation 50.4 H (36.4-46.3) fL RDW Coeff of Ewa 14.7 H (11.5-14.5) % Plt Count 183 (130-400) K/uL MPV 10.9 H (7.4-10.4) fL Immature Gran % (Auto) 0.3 % Neut % (Auto) 74.5 % Lymph % (Auto) 14.0 % Rawlins % (Auto) 8.7 % Eos % (Auto) 2.2 % Baso % (Auto) 0.3 % Immature Gran # (Auto) 0.02 (0.00-0.02) K/uL Neut # (Auto) 5.08 (1.4-6.5) K/uL Lymph # (Auto) 0.95 L (1.2-3.4) K/uL Rawlins # (Auto) 0.59 (0.11-0.59) K/uL Eos # (Auto) 0.15 (0-0.5) K/uL Baso # (Auto) 0.02 (0-0.2) K/uL Sodium 141 (136-145) mmol/L Potassium (3.5-5.1) mmol/L Chloride 102 (98-107) mmol/L Carbon Dioxide 35 H (21-32) mmol/L Anion Gap 4.0 (3-11) BUN 17 (7-18) mg/dl Creatinine 0.89 (0.6-1.2) mg/dl Est Cr Clr Drug Dosing 73.9 ml/min Est GFR ( Amer) 81.1 Est GFR (Non-Af Amer) 70.0 BUN/Creatinine Ratio 19.6 (10-20) Glucose 199 H (70-99) mg/dl POC Glucose (70-99) mg/dl Estimat Average Glucose Pending Hemoglobin A1c Pending Lactate (0.4-2.0) mmol/L Calcium 8.7 (8.5-10.1) mg/dl Phosphorus 2.9 (2.5-4.9) mg/dl Magnesium (1.8-2.4) mg/dl Total Bilirubin (0.2-1) mg/dl AST (15-37) U/L ALT (12-78) U/L Alkaline Phosphatase (45-117) U/L Troponin I (0-0.045) ng/ml Total Protein (6.4-8.2) gm/dl Albumin (3.4-5.0) gm/dl Globulin (2.5-4.0) gm/dl Albumin/Globulin Ratio (0.9-2) Specimen Hemolysis Levetiracetam COVID-19 PCR (Negative) Hepatitis C Ab Screen (Neg) Influenza Type A (PCR) (Neg) Influenza Type B (PCR) (Neg) 03/21/20 03/21/20 03/21/20 Range/Units 22:29 22:27 20:18 WBC (4.8-10.8) K/uL RBC (4.2-5.4) M/uL Hgb (12.0-16.0) g/dL Hct (37-47) % MCV (80-100) fL MCH (25-34) pg MCHC (32-36) g/dL RDW Std Deviation (36.4-46.3) fL RDW Coeff of Ewa (11.5-14.5) % Plt Count (130-400) K/uL MPV (7.4-10.4) fL Immature Gran % (Auto) % Neut % (Auto) % Lymph % (Auto) % Rawlins % (Auto) % Eos % (Auto) % Baso % (Auto) % Immature Gran # (Auto) (0.00-0.02) K/uL Neut # (Auto) (1.4-6.5) K/uL Lymph # (Auto) (1.2-3.4) K/uL Rawlins # (Auto) (0.11-0.59) K/uL Eos # (Auto) (0-0.5) K/uL Baso # (Auto) (0-0.2) K/uL Sodium (136-145) mmol/L Potassium (3.5-5.1) mmol/L Chloride (98-107) mmol/L Carbon Dioxide (21-32) mmol/L Anion Gap (3-11) BUN (7-18) mg/dl Creatinine (0.6-1.2) mg/dl Est Cr Clr Drug Dosing ml/min Est GFR ( Amer) Est GFR (Non-Af Amer) BUN/Creatinine Ratio (10-20) Glucose (70-99) mg/dl POC Glucose 271 H 321 H* (70-99) mg/dl Estimat Average Glucose Hemoglobin A1c Lactate (0.4-2.0) mmol/L Calcium (8.5-10.1) mg/dl Phosphorus (2.5-4.9) mg/dl Magnesium (1.8-2.4) mg/dl Total Bilirubin (0.2-1) mg/dl AST (15-37) U/L ALT (12-78) U/L Alkaline Phosphatase (45-117) U/L Troponin I (0-0.045) ng/ml Total Protein (6.4-8.2) gm/dl Albumin (3.4-5.0) gm/dl Globulin (2.5-4.0) gm/dl Albumin/Globulin Ratio (0.9-2) Specimen Hemolysis Levetiracetam COVID-19 PCR (Negative) Hepatitis C Ab Screen Neg (Neg) Influenza Type A (PCR) (Neg) Influenza Type B (PCR) (Neg) 03/21/20 03/21/20 03/21/20 Range/Units 20:16 18:15 18:15 WBC (4.8-10.8) K/uL RBC (4.2-5.4) M/uL Hgb (12.0-16.0) g/dL Hct (37-47) % MCV (80-100) fL MCH (25-34) pg MCHC (32-36) g/dL RDW Std Deviation (36.4-46.3) fL RDW Coeff of Ewa (11.5-14.5) % Plt Count (130-400) K/uL MPV (7.4-10.4) fL Immature Gran % (Auto) % Neut % (Auto) % Lymph % (Auto) % Rawlins % (Auto) % Eos % (Auto) % Baso % (Auto) % Immature Gran # (Auto) (0.00-0.02) K/uL Neut # (Auto) (1.4-6.5) K/uL Lymph # (Auto) (1.2-3.4) K/uL Rawlins # (Auto) (0.11-0.59) K/uL Eos # (Auto) (0-0.5) K/uL Baso # (Auto) (0-0.2) K/uL Sodium (136-145) mmol/L Potassium (3.5-5.1) mmol/L Chloride (98-107) mmol/L Carbon Dioxide (21-32) mmol/L Anion Gap (3-11) BUN (7-18) mg/dl Creatinine (0.6-1.2) mg/dl Est Cr Clr Drug Dosing ml/min Est GFR ( Amer) Est GFR (Non-Af Amer) BUN/Creatinine Ratio (10-20) Glucose (70-99) mg/dl POC Glucose (70-99) mg/dl Estimat Average Glucose Hemoglobin A1c Lactate 1.6 (0.4-2.0) mmol/L Calcium (8.5-10.1) mg/dl Phosphorus (2.5-4.9) mg/dl Magnesium (1.8-2.4) mg/dl Total Bilirubin (0.2-1) mg/dl AST (15-37) U/L ALT (12-78) U/L Alkaline Phosphatase (45-117) U/L Troponin I (0-0.045) ng/ml Total Protein (6.4-8.2) gm/dl Albumin (3.4-5.0) gm/dl Globulin (2.5-4.0) gm/dl Albumin/Globulin Ratio (0.9-2) Specimen Hemolysis Levetiracetam COVID-19 PCR NEGATIVE (Negative) Hepatitis C Ab Screen (Neg) Influenza Type A (PCR) Neg for Influ A (Neg) Influenza Type B (PCR) Neg for Influ B (Neg) 03/21/20 03/21/20 03/21/20 Range/Units 17:54 17:54 17:54 WBC (4.8-10.8) K/uL RBC (4.2-5.4) M/uL Hgb (12.0-16.0) g/dL Hct (37-47) % MCV (80-100) fL MCH (25-34) pg MCHC (32-36) g/dL RDW Std Deviation (36.4-46.3) fL RDW Coeff of Ewa (11.5-14.5) % Plt Count (130-400) K/uL MPV (7.4-10.4) fL Immature Gran % (Auto) % Neut % (Auto) % Lymph % (Auto) % Rawlins % (Auto) % Eos % (Auto) % Baso % (Auto) % Immature Gran # (Auto) (0.00-0.02) K/uL Neut # (Auto) (1.4-6.5) K/uL Lymph # (Auto) (1.2-3.4) K/uL Rawlins # (Auto) (0.11-0.59) K/uL Eos # (Auto) (0-0.5) K/uL Baso # (Auto) (0-0.2) K/uL Sodium 138 (136-145) mmol/L Potassium 4.0 (3.5-5.1) mmol/L Chloride 98 (98-107) mmol/L Carbon Dioxide 33 H (21-32) mmol/L Anion Gap 7.0 (3-11) BUN 16 (7-18) mg/dl Creatinine 0.96 (0.6-1.2) mg/dl Est Cr Clr Drug Dosing 68.5 ml/min Est GFR ( Amer) 74.0 Est GFR (Non-Af Amer) 63.8 BUN/Creatinine Ratio 16.4 (10-20) Glucose 287 H (70-99) mg/dl POC Glucose (70-99) mg/dl Estimat Average Glucose Hemoglobin A1c Lactate 3.2 H* (0.4-2.0) mmol/L Calcium 9.1 (8.5-10.1) mg/dl Phosphorus (2.5-4.9) mg/dl Magnesium (1.8-2.4) mg/dl Total Bilirubin 0.4 (0.2-1) mg/dl AST 22 (15-37) U/L ALT 21 (12-78) U/L Alkaline Phosphatase 156 H (45-117) U/L Troponin I < 0.015 (0-0.045) ng/ml Total Protein 7.3 (6.4-8.2) gm/dl Albumin 2.8 L (3.4-5.0) gm/dl Globulin 4.5 H (2.5-4.0) gm/dl Albumin/Globulin Ratio 0.6 L (0.9-2) Specimen Hemolysis Levetiracetam Pending COVID-19 PCR (Negative) Hepatitis C Ab Screen (Neg) Influenza Type A (PCR) (Neg) Influenza Type B (PCR) (Neg) 03/21/20 Range/Units 17:54 WBC 9.93 (4.8-10.8) K/uL RBC 4.27 (4.2-5.4) M/uL Hgb 12.0 (12.0-16.0) g/dL Hct 40.3 (37-47) % MCV 94.4 (80-100) fL MCH 28.1 (25-34) pg MCHC 29.8 L (32-36) g/dL RDW Std Deviation 51.0 H (36.4-46.3) fL RDW Coeff of Ewa 14.8 H (11.5-14.5) % Plt Count 202 (130-400) K/uL MPV 10.8 H (7.4-10.4) fL Immature Gran % (Auto) 0.3 % Neut % (Auto) 86.7 % Lymph % (Auto) 5.8 % Rawlins % (Auto) 6.5 % Eos % (Auto) 0.5 % Baso % (Auto) 0.2 % Immature Gran # (Auto) 0.03 H (0.00-0.02) K/uL Neut # (Auto) 8.60 H (1.4-6.5) K/uL Lymph # (Auto) 0.58 L (1.2-3.4) K/uL Rawlins # (Auto) 0.65 H (0.11-0.59) K/uL Eos # (Auto) 0.05 (0-0.5) K/uL Baso # (Auto) 0.02 (0-0.2) K/uL Sodium (136-145) mmol/L Potassium (3.5-5.1) mmol/L Chloride (98-107) mmol/L Carbon Dioxide (21-32) mmol/L Anion Gap (3-11) BUN (7-18) mg/dl Creatinine (0.6-1.2) mg/dl Est Cr Clr Drug Dosing ml/min Est GFR ( Amer) Est GFR (Non-Af Amer) BUN/Creatinine Ratio (10-20) Glucose (70-99) mg/dl POC Glucose (70-99) mg/dl Estimat Average Glucose Hemoglobin A1c Lactate (0.4-2.0) mmol/L Calcium (8.5-10.1) mg/dl Phosphorus (2.5-4.9) mg/dl Magnesium (1.8-2.4) mg/dl Total Bilirubin (0.2-1) mg/dl AST (15-37) U/L ALT (12-78) U/L Alkaline Phosphatase (45-117) U/L Troponin I (0-0.045) ng/ml Total Protein (6.4-8.2) gm/dl Albumin (3.4-5.0) gm/dl Globulin (2.5-4.0) gm/dl Albumin/Globulin Ratio (0.9-2) Specimen Hemolysis Levetiracetam COVID-19 PCR (Negative) Hepatitis C Ab Screen (Neg) Influenza Type A (PCR) (Neg) Influenza Type B (PCR) (Neg) Medications Administered Current Inpatient Medications Albuterol (Ventolin Hfa) 2 puffs INH QID PRN; Protocol PRN Reason: Shortness Of Breath Or Wheezin Stop: 04/20/20 22:33 Aspirin (Ecotrin Ectab) 81 mg PO DAILY MIGUEL Stop: 04/22/20 08:59 Ciprofloxacin (Cipro) 500 mg PO BID MIGUEL Stop: 03/29/20 20:59 Dextrose (Dextrose 50%) 25 - 50 ml IV UD PRN; Protocol PRN Reason: Hypoglycemia Protocol Stop: 04/20/20 22:33 Doxycycline Hyclate (Vibramycin) 100 mg PO BID MIGUEL Stop: 03/29/20 08:59 Enoxaparin Sodium (Lovenox) 40 mg SQ Q24H MIGUEL Stop: 04/20/20 23:29 Last Admin: 03/22/20 08:22 Dose: 40 mg Documented by: Fluticasone Furoate (Arnuity Ellipta 200mcg) 1 puffs INH DAILY MIGUEL Stop: 04/21/20 08:59 Last Admin: 03/22/20 08:23 Dose: 1 puffs Documented by: Furosemide (Lasix) 40 mg PO QAM MIGUEL Stop: 04/21/20 08:59 Last Admin: 03/22/20 08:23 Dose: 40 mg Documented by: Glucagon (Glucagen) 1 mg SQ UD PRN; Protocol PRN Reason: Hypoglycemia Protocol Stop: 04/20/20 22:33 Glucose (Dex4 Glucose) 4 - 8 tabs PO UD PRN; Protocol PRN Reason: Hypoglycemia Protocol Stop: 04/20/20 22:33 Glucose (Glucose 40%) 15 - 30 gm PO UD PRN; Protocol PRN Reason: Hypoglycemia Protocol Stop: 04/20/20 22:33 Lorazepam (Ativan) 2 mg in 4 mls @ 4 mls/min IV Q5M PRN PRN Reason: Seizure Stop: 04/20/20 23:06 Ibuprofen (Motrin) 800 mg PO TID PRN PRN Reason: Pain Stop: 04/21/20 02:20 Last Admin: 03/22/20 03:18 Dose: 800 mg Documented by: Insulin Aspart (Novolog Flexpen) 0 units SC ACHS MIGUEL Stop: 04/20/20 22:44 Last Admin: 03/22/20 08:22 Dose: 5 units Documented by: Levetiracetam (Keppra) 1,000 mg PO BID [facility] Stop: 04/21/20 20:59 Metoprolol Succinate (Toprol Xl) 50 mg PO DAILY [facility] Stop: 04/21/20 08:59 Last Admin: 03/22/20 08:23 Dose: 50 mg Documented by: Miconazole Nitrate (Desenex) 1 appln EXT PRN PRN PRN Reason: Affected Skin Folds Stop: 04/20/20 22:44 Miscellaneous (Carbohydrates For Hypoglycemia) 15 - 30 gm PO UD PRN PRN Reason: Hypoglycemia Protocol Stop: 04/20/20 22:33 Ondansetron HCl (Zofran) 4 mg IV Q6H PRN PRN Reason: Nausea Stop: 04/20/20 22:33 Spironolactone (Aldactone) 12.5 mg PO DAILY [facility] Stop: 04/21/20 08:59 Last Admin: 03/22/20 08:23 Dose: 12.5 mg Documented by: Topiramate (Topamax) 100 mg PO QAM MIGUEL Stop: 04/21/20 08:59 Last Admin: 03/22/20 08:23 Dose: 100 mg Documented by: Resident Activity Tracking Resident Involvement: Resident Care Provided Care Provided: Adult [facility] (1) Obesity Body mass index: BMI 45.0-49.9 Obesity classification: adult class 3 (BMI >= 40) Obesity type: due to excess calories Serious obesity comorbidity presence: with serious comorbidity Qualified Code(s): E66.01 - Morbid (severe) obesity due to excess calories; Z68.42 - Body mass index (BMI) 45.0-49.9, adult
--- NOTE | 2020-03-22 12:39 | XRay Report ---
XR chest 1V portable HISTORY: Shortness of breath. COMPARISON: Chest 03/21/2020. FINDINGS: No pneumothorax. No pleural effusions. No change in the cardiomegaly and mild congestive ch arian. Patchy densities at the lung bases have improved. No new focal lung consolidations. IMPRESSION: 1. Cardiomegaly and mild congestive change is again noted. 2. Improved aeration within the lung bases. ACT 112: Negative or not required by law. Electronically signed by: Laurent Caballero M.D. 03/22/2020 12:38 PM
--- NOTE | 2020-03-22 13:28 | Communication Note ---
Date of Service: March 22 Gilma is a 59-year-old right handed woman known to neurology service at [facility] having been seen by myself last in April 2019. At that time she reported no seizure activity but apparently had an event in May that I was unaware of. I had difficulty establishing her exact medications in April as she seemed to be unaware of them and not particularly concerned about them but we established that her doses should be Keppra 1000 mg twice a day, Topamax 100 mg in the morning and 200 mg at night. Her levels at that point were in the therapeutic range She has now been admitted for breakthrough seizures occurring in the setting of a series of infections and cellulitis of her lower extremities on multiple antibiotics and with self admitted poor compliance with her anticonvulsant regimen. An EEG was ordered but I see no need for this as she is now apparently awake alert and wanting to be discharged and only had one observed seizure prior to reloading her with her keppra dose. Levels could be drawn bu this would park of virtually no value as they are send outs and results would not be available for up to a week I have discussed her case with Dr. Schaefer and we are agreement that she can be discharged today and follow-up in our office with Kelly Rosas PA-C or myself within the next 4 weeks. She should go back on her medications but we obviously cannot guarantee her compliance nor her willingness to follow up Khanh Pérez MD
--- NOTE | 2020-03-22 14:07 | Discharge Summary ---
Date of Service March 22, 2020 Admission HPI Per Admitting Provider Gilma Toro is 59y/o F w/ PMH significant for seizure disorder; presented following a seizure earlier today. Patient is largely unclear about the events leading up to earlier today. Predominant history provided by patient's daughter and granddaughter ([id number]); Patient is described by her granddaughter as a very "stubborn" person. Earlier today she was seen at the wound care clinic and when they got home she was in a wheelchair sitting at the table drinking some coffee, then the patient started to seize. She has had seizures previously, with the most recent one that the daughter is aware of was in May 2019, her seizures predominantly look involve loss of consciousness, with upper extremities shaking and no lower extremity shaking, and today's episode was consistent with this. This episode lasted about 5-7 minutes, she stated at some point she had a period of apnea lasting almost a minute, her granddaughter did several sternal rubs to get her breathing again. Following this episode the patient was confused and not very responsive, and only woke up when EMS arrived. With the patients's history of a seizure disorder, she is supposed to be on Keppra 1000 mg twice daily, but her granddaughter states that they are monica if she takes her medicines once a day. She denies any recent illness for the patient and states that she has not had any fevers. The patient denies any chest pain, shortness of breath, abdominal pain, diarrhea, cough or cold symptoms. Admission Exam Per Admitting Provider Constitutional: WD/WN, vitals as above Eyes: PERRL, conjunctivae normal, anicteric sclerae ENMT: external ear and nose normal, oropharynx normal Neck: normal visual inspection Respiratory: normal respiratory effort, lungs clear to auscultation Cardiovascular: Rate/Rhythm: regular rhythm and + tachycardic Heart Sounds: normal S1 and normal S2; no gallop, no murmur and no cardiac rub Vessels: no JVD Extremities: + pedal edema Gastrointestinal (Abdomen): normal bowel sounds, soft, nontender, no hepatosplenomegaly Musculoskeletal: no cyanosis or clubbing, extremities motor strength 5/5 Skin: stasis dermatitis b/l lower extremities Neurologic: patellar DTR's 2+ bilat, sensation intact Psychiatric: A+Ox3, euthymic affect Lymphatic: + lymphedema Principal Diagnosis Acute on chronic seizure disorder, medication noncompliance, hypoxia, hyperglycemia, diabetes, chronic venous insufficiency Discharge Exam General Appearance: Awake, alert & oriented, comfortable in general, NAD. CV: +S1S2 RRR, no murmur. Pulm: Decreased but clear breath sounds throughout. 2 L nasal cannula oxygen in place. Abdomen: +BS, soft, non-tender. Obese habitus. Extremities: 3+ pitting lymphedema in bilateral legs. She has dressings and compression stockings in place up to the knees bilaterally. No noted tenderness on palpation. Neuro: No gross neuro deficits. Discharge Data Allergies Allergy/AdvReac Type Severity Reaction Status Date / Time ceftaroline fosamil Allergy Mild ITCHING Verified 04/02/20 13:40 HANDS latex Allergy Mild Verified 04/02/20 13:40 SABINE Inhibitors Allergy Unknown Verified 04/02/20 13:40 codeine Allergy Unknown Verified 04/02/20 13:40 erythromycin base Allergy Unknown Verified 04/02/20 13:40 Iodinated Contrast Media Allergy Unknown ` Verified 04/02/20 13:40 acetaminophen Allergy Verified 04/02/20 13:40 [From Tylenol-Codeine] Iodine and Iodide Containing Allergy Verified 04/02/20 13:40 Produc morphine Allergy Verified 04/02/20 13:40 Penicillins AdvReac Mild MAKES HER Verified 04/02/20 13:40 "FUNNY IN THE HEAD" SABINE Inhibitors Allergy Unknown Uncoded 04/02/20 13:40 Contrast Media Ready-Box MISC Allergy Unknown Uncoded 04/02/20 13:40 Erythromyci Allergy Unknown Uncoded 04/02/20 13:40 Latex Allergy Unknown Uncoded 04/02/20 13:40 Penicillins Allergy Unknown Uncoded 04/02/20 13:40 Consultations Neurology consult note on March 22, 2020 Gilma is a 59-year-old right handed woman known to neurology service at [facility] having been seen by myself last in April 2019. At that time she reported no seizure activity but apparently had an event in May that I was unaware of. I had difficulty establishing her exact medications in April as she seemed to be unaware of them and not particularly concerned about them but we established that her doses should be Keppra 1000 mg twice a day, Topamax 100 mg in the morning and 200 mg at night. Her levels at that point were in the therapeutic range She has now been admitted for breakthrough seizures occurring in the setting of a series of infections and cellulitis of her lower extremities on multiple antibiotics and with self admitted poor compliance with her anticonvulsant regimen. An EEG was ordered but I see no need for this as she is now apparently awake alert and wanting to be discharged and only had one observed seizure prior to reloading her with her keppra dose. Levels could be drawn bu this would park of virtually no value as they are send outs and results would not be available for up to a week I have discussed her case with Dr. Schaefer and we are agreement that she can be discharged today and follow-up in our office with Kelly Rosas PA-C or myself within the next 4 weeks. She should go back on her medications but we obviously cannot guarantee her compliance nor her willingness to follow up Ordered Studies Portable chest x-ray on March 21, 2020 IMPRESSION: 1. Cardiomegaly with evidence of congestive failure. 2. Patchy airspace opacities are present at both lung bases. This could represent atelectasis and/or an infectious/inflammatory pneumonitis. Clinical correlation will be essential. 3. Suspect small pleural effusions. Portable chest x-ray on March 22, 2020 IMPRESSION: 1. Cardiomegaly and mild congestive change is again noted. 2. Improved aeration within the lung bases. Hospital Course (1) Seizure: 59-year-old female was admitted on 21 Mar 2020 after arriving via EMS for seizures. Acute on chronic seizure disorder, medication noncompliance: Witnessed by granddaughter on . Granddaughter reports she is non-compliant with her Keppra 1 gm twice daily (perhaps takes it once a day maybe). Initial elevated lactate resolved. Follows with Dr. Pérez ([facility] neurology). - Restarted her home keppra 1000 mg PO BID. Continued home Topamax. EEG ordered on admit. - Consulted neurology (see related note). They recommended she be on Keppra 1000 mg PO BID as well as Topamax 100 mg q AM and 200 mg q PM. Recommended follow up with them within in the next four weeks. --- Wrote new Rx for the extra Topamax on discharge. - Admit keppra level was pending at time of discharge. Hypoxia: Noted to have SpO2 88% on room air, though she is on 2L NC at home chronically. Reported possible dyspnea/apnea during her seizure as well. Initial pCXR noted bilateral lung base patchy opacities, possible small pleural effusions, some evidence of congestive failure. COVID-19 and influenza negative. Repeat pCXR on day of discharge showed some improvement in aeration. She was admitted on Levaquin, but given no overt evidence of pulmonary inf ection, will discontinue for now. SpO2 was in mid-90s while on 2L NC. - Blood cultures sent in the ED and were pending at discharge. Diabetes, hyperglycemia: Arrival glucose as high as 321, likely related to the seizure. Normal AG. HbA1c pending. Reportedly only on metformin at home (held on admit). On insulin sliding scale here. - HbA1c ordered on admit was pending at discharge. Chronic venous insufficiency, venous stasis ulcers of both legs, lymphedema: Chronically followed by wound clinic (last visit 20May). 13May wound culture grew MDR Staph aureus. Please see their notes. Was given daptomycin on admit. - Do not suspect an acute issue with her legs. Restarted her home Cipro and doxycycline. Wound care consulted. - Per outpatient notes, she is pending a referral to [facility] infectious disease. Reportedly potential candidate for IV Dalvance. Anemia: Admit Hb 12 (MCV 95) down to 10.9 on day of discharge. Baseline around 12. No evidence of acute bleeding. Ongoing medical issues: - HTN, HLD, CAD, cardiomyopathy, systolic CHF, cor pulmonale, LBBB: February 2019 TTE noted EF 50-55%. Continue home metoprolol succinate, Spironolactone, Lasix 40 mg daily, aspirin. --- Briefly held home Lipitor while on daptomycin. Will restart on discharge. - Asthma: Continue home fluticasone. Albuterol prn. - Elevated alk phos: Admit AP 156, which is around her baseline. Remaining LFTs normal. - Obesity: BMI 53. - Sleep apnea: Not sure if she uses a CPAP at home. Code status: Full code. (2) Seizure disorder: (3) Noncompliance with medication regimen: (4) Hypoxia: (5) Prolonged QT interval: (6) Diabetes mellitus, type II: (7) Hyperglycemia: (8) Chronic venous insufficiency: (9) Venous stasis ulcers of both lower extremities: (10) Lymphedema: (11) Anemia: (12) HTN (hypertension): (13) HLD (hyperlipidemia): (14) Cardiomyopathy: (15) Systolic congestive heart failure: (16) Cor pulmonale: (17) Left bundle branch block: (18) Asthma: (19) Elevated alkaline phosphatase level: (20) Obesity: (21) Sleep apnea: Total Time Total Time Spent Total Time Spent (In Minutes): > 30 min Discharge Plan Discharge Items Patient Disposition: Home - Self-Care Reason For Visit: SEIZURE Discharge Diagnosis: Breakthrough seizure, medication noncompliance, hypoxia, hyperglycemia, diabetes Activity: Per Instructions section Non-emergency contact: Primary Care Provider and Neurologist Call non-emergency contact if: you have any medication questions Follow-up/Referrals: Trisha Castillo MD [Primary Care Provider] - Khanh Pérez MD [Physician] - (Please follow up within the next four weeks at their [facility] office. ) Diet: Carb Consistent or DM2 Addtl Attending Provider Instructions: You were admitted to the hospital on March 21, 2020. While here we evaluated for the following issues: Breakthrough seizure, medication non-compliance: As you know, you were witnessed to have a seizure on the day prior to your admission. This is likely because you are not taking your medication as often as you should be. We spoke with your neurologist, Dr. Pérez, and he recommended the following: - Please take your Keppra 1000 mg twice a day. This is the same dose that you were prescribed previously. It is important that you find a way to remember to take the evening dose that you often miss. - He recommends you continue to take Topamax 100 mg in the morning. - He recommends you add an additional Topamax 200 mg in the evenings. This new prescription was written for you today on discharge. - He recommends that you follow-up in his [facility] clinic within the next four weeks for ongoing management of your seizures. Low oxygen levels: At times you are noted to have low oxygen. This improves when you are on your home oxygen. It is unclear if you use a CPAP machine at night for your sleep apnea. Please continue to talk with your primary care provider about your oxygen needs. Otherwise, we did not make any changes to your chronic medications. It is very important that you follow-up with neurology and your primary care provider after this hospitalization. Please return to the nearest emergency department if you develop any new seizures, any particular difficulty with things like a severe headache, moving your extremities, other new neurologic symptoms, or any other emergent concerns. Pending Studies at Discharge: Yes Studies:: Keppra level, blood cultures, hemoglobin A1c. Stand-Alone Forms: [facility], Smoking Cessation Medications and DC Order Prescriptions: New topiramate 100 mg Tablet 200 mg PO QPM 30 Days Qty: 60 RF: 0 Continued topiramate [Topamax] 100 mg tablet 100 mg PO QAM RF: 0 metformin 500 mg tablet 500 mg PO BID RF: 0 acetic acid 0.25 % solution 1 irrig irrigation DAILY 14 Days Qty: 3000 RF: 2 ciprofloxacin HCl [Cipro] 500 mg tablet 500 mg PO BID Qty: 60 RF: 2 fluticasone furoate 200 mcg/actuation blister with device 1 puffs INH DAILY RF: 0 mometasone 0.1 % cream 1 applic TOP UD RF: 0 albuterol sulfate 90 mcg/actuation HFA aerosol inhaler 2 puffs INH QID PRN (Reason: Shortness Of Breath Or Wheezing) RF: 0 nitroglycerin 0.4 mg tablet, sublingual 0.4 mg SL Q5M PRN (Reason: Chest Pain) RF: 0 atorvastatin 10 mg Tablet 10 mg PO DAILY RF: 0 ibuprofen 200 mg Capsule 200 mg PO Q6H PRN (Reason: Pain) RF: 0 furosemide [Lasix] 40 mg Tablet 40 mg PO QAM RF: 0 aspirin [Aspir-81] 81 mg Tablet,Delayed Release (Dr/Ec) 81 mg PO DAILY RF: 0 metoprolol succinate [Toprol XL] 50 mg tablet extended release 24 hr 50 mg PO DAILY Qty: 30 RF: 0 levetiracetam [Keppra] 500 mg Tablet 1,000 mg PO BID Qty: 60 RF: 0 spironolactone 25 mg Tablet 12.5 mg PO DAILY Qty: 0 RF: 0 Discharge Orders: Discharge Order (Routine); Ordered 03/22/20 Ordered By: Hung White/Other Patient Handouts: First Aid Seizures, ED Seizure Recurrent Adult Admission Data Admit Date/Time: 03/21/20 20:43 Attending Provider: Jimena Schaefer Admit Provider: Aman Calle Primary Care Provider: Trisha Castillo. Other Providers: Daniel Conroy ; Khanh Pérez Other Interventions: Discharge Summary Assessment (RN) Last Done: 03/22/20 14:27 DC Date/Time DO NOT enter until pt leaves facility: 03/22/20 18:15 Supervising Physician Co-Signing Physician Notes I personally examined the patient and verified all macias points of history and exam, discussed case, and agree with decision making with Dr. Breaux with the following additions/exceptions: Pt presented after having a seizure at home due to noncompliance with medicati on. She is doing well on the day of discharge, no further seizure activity,discussed her case with her Neurologist, Dr. Pérez, who reviewed the chart and is ok with the plan as noted by Dr. Breaux. VSS Morbidly obese NAD, alert awake oriented RRR no mgr CTAB no wcr Abd +BS soft NT ND Ext-chronic venous stasis changes, very minimal erythema 59 yo female here with breakthrough seizure secondary to medication noncompliance. Stable for dc to home on meds as noted above. F/u with Neuro Resident Activity Tracking Resident Involvement: Resident Care Provided Care Provided: Adult Hospital Medicine
[2020-03-22] MEDS ORDERED: LEVOFLOXACIN/D5W 750 MG/150 ML BAG IV SCH (20:00)
--- NOTE | 2020-03-22 20:22 | Billing Data ---
Date of Service March 22, 2020 Coding Level of Care Code 21153 Initial Inpt Care Lvl 3
[2020-03-22] MEDS ORDERED: CIPROFLOXACIN 500 MG TAB PO SCH (21:00)
[2020-03-22] MEDS ORDERED: levETIRAcetam 500 MG TAB PO SCH (21:00)
[2020-03-23] MEDS ORDERED: ASPIRIN 81 MG ECTAB PO SCH (09:00)
[2020-03-23 11:03] LABS: Estimated Average Glucose 232 mg/dl; Hemoglobin A1C 9.7 % (4.5-5.6)
--- NOTE | 2020-04-04 10:38 | Billing Data ---
Date of Service March 22, 2020 Coding Level of Care Code 55714 OBS Care - Discharge
== END 2020-03-22 18:15 | disposition home or self-care (01) ==
LOC: ED 15:48 → SUATTDRO 20:43 → INTOOBSV 20:43 → 2W 20:43
DX: G40.909 Epilepsy, unspecified, not intractable, without status epilepticus; D64.9 Anemia, unspecified; E11.65 Type 2 diabetes mellitus with hyperglycemia; K21.9 Gastro-esophageal reflux disease without esophagitis; G47.30 Sleep apnea, unspecified; Z68.42 Body mass index [BMI] 45.0-49.9, adult; Z79.82 Long term (current) use of aspirin; Z88.5 Allergy status to narcotic agent; Z82.49 Family history of ischemic heart disease and other diseases of the circulatory system; Z91.14 Patient's other noncompliance with medication regimen; I50.20 Unspecified systolic (congestive) heart failure; Z91.041 Radiographic dye allergy status; Z80.6 Family history of leukemia; Z82.0 Family history of epilepsy and other diseases of the nervous system; L97.929 Non-pressure chronic ulcer of unspecified part of left lower leg with unspecified severity; I87.2 Venous insufficiency (chronic) (peripheral); Z79.84 Long term (current) use of oral hypoglycemic drugs; L97.919 Non-pressure chronic ulcer of unspecified part of right lower leg with unspecified severity; J45.909 Unspecified asthma, uncomplicated; I89.0 Lymphedema, not elsewhere classified; E66.01 Morbid (severe) obesity due to excess calories; Z88.8 Allergy status to other drugs, medicaments and biological substances; Z88.0 Allergy status to penicillin; I25.10 Atherosclerotic heart disease of native coronary artery without angina pectoris; Z91.040 Latex allergy status; R09.02 Hypoxemia; Z79.899 Other long term (current) drug therapy; I42.9 Cardiomyopathy, unspecified; Z88.1 Allergy status to other antibiotic agents

== ENCOUNTER 2020-08-27 00:16 | Observation (INO) ==
[2020-08-27 01:11] LABS: Basophils # (auto) 0.01 K/uL (0-0.2); Basophils % (auto) 0.1 %; Eosinophils # (auto) 0.09 K/uL (0-0.5); Eosinophils % (auto) 1.3 %; Hematocrit (blood only) 36.3 % (37-47); Hemoglobin 10.8 g/dL (12.0-16.0); Immature Granulocytes # (auto) 0.02 K/uL (0.00-0.02); Immature Granulocytes % (auto) 0.3 %; Lymphocytes # (auto) 0.56 K/uL (1.2-3.4); Lymphocytes % (auto) 7.9 %; Mean Corpuscular Hemoglobin 27.4 pg (25-34); Mean Corpuscular Hgb Conc 29.8 g/dL (32-36); Mean Corpuscular Volume 92.1 fL (80-100); Mean Platelet Volume 10.5 fL (7.4-10.4); Monocytes # (auto) 0.49 K/uL (0.11-0.59); Monocytes % (auto) 6.9 %; Neutrophils # (auto) 5.95 K/uL (1.4-6.5); Neutrophils % (auto) 83.5 %; Platelet Count 157 K/uL (130-400); RDW Coefficient of Variation 14.5 % (11.5-14.5); RDW Standard Deviation 49.2 fL (36.4-46.3); Red Blood Count 3.94 M/uL (4.2-5.4); White Blood Count 7.12 K/uL (4.8-10.8)
[2020-08-27 01:28] LABS: Albumin Level 2.9 gm/dl (3.4-5.0); BUN Creatinine Ratio 17.3 (10-20); Calcium 8.6 mg/dl (8.5-10.1); Creatinine Clr Calc Pharmacy 69.7 ml/min; Est GFR (African American) 81.6; Est GFR (Non-African American) 70.4
[2020-08-27 01:31] LABS: Albumin Globulin Ratio 0.7 (0.9-2); Bilirubin,Total 0.3 mg/dl (0.2-1); Globulin 3.9 gm/dl (2.5-4.0); Total Protein 6.8 gm/dl (6.4-8.2)
--- NOTE | 2020-08-27 01:31 | Emergency Department Note ---
Impression & Plan Seizure ED Provider Note NAME: AUGUST WEATHERS AGE: 60 SEX: F ARRIVES VIA: Ambulance INFORMANT: Patient,EMS ED PROVIDER(S): Marilu Garsia DO CHIEF COMPLAINT: seizure PLAN: Disposition: Discharged to home Condition: Good Outpatient prescription management: Patient will continue to take Keppra Referral: Follow-up with PCP MEDICAL DECISION MAKING: Patient has a longstanding history of seizures and takes Keppra. Patient has a history of medication noncompliance although she states that she is taking her medications regularly in the past couple of days. According to EMS, the patient was found by her boyfriend to be having a seizure. The patient does have trauma to her tongue. She has no other complaints. A Keppra level was sent out for reference lab testing. It appears the patient did suffer a seizure tonight. I have asked her to have close follow-up with her PCP and neurologist with regards to increased frequency of seizures. They can follow-up with the Keppra level. She was told to return to the emergency department if she has any further seizure activity. Triage Nursing notes reviewed and agree them. Additional history obtained from EMS Prior medical records reviewed Vital Signs: reviewed and remarkable for tachycardia Differential diagnosis: Seizure, pseudoseizure, medication noncompliance, dehydration ER treatment provided: Seizure precaution Diagnostics interpreted by me: ECG: Sinus tachycardia at a rate of 125 with a left bundle branch block. This is unchanged from August 12, 2020. There are no signs of ischemia or ectopy. Cardiac Monitoring: Sinus tachycardia at 118 Laboratory studies: See below HPI: 60/F arrives for evaluation of seizure. The patient lives with her boyfriend. According to the patient, her boyfriend came out of the bedroom to find her in the kitchen having a seizure. The patient complains of pain to her tongue. She does have a bite brenden to the left side of her tongue. She has a history of seizures and takes Keppra. In reviewing her medical records, it seems that she has a history of medication noncompliance. The patient states that she has been taking all of her medications over the past couple of days. She denies any other symptoms at this time. ROS: See above HPI for pertinent positives & negatives. A total of 10 systems reviewed and were otherwise negative. PAST MEDICAL HISTORY:See Below PAST SURGICAL HISTORY:See Below FAMILY HISTORY:See Below SOCIAL HISTORY:See Below HOME MEDICATIONS:See list ALLERGIES:See list VITALS:See Below PHYSICAL EXAMINATION: HEENT: Head - normocephalic and atraumatic Pupils are equal, round, and reactive to light. Extraocular eye muscles are intact, and sclera are anicteric. Nose - moist nasal mucosa without discharge. Mouth - moist buccal mucosa. Oropharynx is nonerythematous and there is no tonsillar exudate or edema noted. There is a area of contusion noted to the left side of the tongue Neck: Supple; no cervical lymphadenopathy or nuchal rigidity Heart: Tachycardic rate and regular rhythm. There is a normal S1 and S2 with no murmurs, clicks, or gallops appreciated. Lungs: Clear to auscultation bilaterally with no wheezes, rales, or rhonchi. Abdomen: Soft, completely nontender, nondistended, with good bowel sounds. There are no palpable pulsatile masses or hepatosplenomegaly. There is no guarding, rigidity, or rebound noted. Extremities: No evidence of cyanosis, clubbing, or edema. There are easily palpable peripheral pulses. Skin: warm and dry with good turgor and no rashes. ED COURSE: Times/Reassessments: 0050: The patient was evaluated in room C7. A complete history and physical was performed. Seizure precautions were taken. An order was placed for continuous cardiac monitoring. The patient was in a sinus tachycardia at a rate of 118. Laboratory studies were drawn as above. Previous medical records were reviewed. 0145: The patient was reevaluated at this time. She was resting comfortably. Her heart rate has come down some. She has had no further seizure activity. Have asked her to continue to take her seizure medications as directed. Of as ked her to follow-up with her PCP. I have asked her to be in the presence of her boyfriend at all times in case she would have any further seizure activity. 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, managed as type 2 Diverticulosis DVT (deep venous thrombosis) Encephalopathy GERD (gastroesophageal reflux disease) Hyperlipidemia LDL goal <100 Left bundle branch block (LBBB) Lymphedema MSSA (methicillin susceptible Staphylococcus aureus) Obesity Rectal polyp Seizure Sleep apnea Systolic CHF Thyroid nodule Surgical History H/O sinus surgery H/O: hysterectomy Tubal ligation status Family History Father Hypertension Stroke Sister Seizure Brother Seizure Mother Leukemia Social History Smoking Status: Never smoker Second Hand Exposure: No; Hx Alcohol Use: No Hx Substance Use: No Preferred Language: Macedonian Communication Ability: Effective Health Information Systems Technician Required: No Beliefs That Will Affect Care: None marital status: Life Partner Current Living Situation: Significant Other Current Living Situation Comment: lives with boyfriend, and has home care givers How many Children do You have: 4 Feels Safe at Home: Yes Assistive Devices: Oxygen - Continuous Allergies Allergies Allergy/AdvReac Type Severity Reaction Status Date / Time ceftaroline fosamil Allergy Mild ITCHING Verified 08/27/20 00:30 HANDS latex Allergy Mild Unknown Verified 08/27/20 00:30 SABINE Inhibitors Allergy Unknown Unknown Verified 08/27/20 00:30 codeine Allergy Unknown Unknown Verified 08/27/20 00:30 erythromycin base Allergy Unknown Unknown Verified 08/27/20 00:30 Iodinated Contrast Media Allergy Unknown ` Verified 08/27/20 00:30 acetaminophen Allergy Unresponsiv Verified 08/27/20 00:30 [From Tylenol-Codeine] e Iodine and Iodide Containing Allergy Unknown Verified 08/27/20 00:30 Produc morphine Allergy Unknown Verified 08/27/20 00:30 Penicillins AdvReac Mild MAKES HER Verified 08/27/20 00:30 "FUNNY IN THE HEAD" SABINE Inhibitors Allergy Unknown Uncoded 08/27/20 00:30 Contrast Media Ready-Box MISC Allergy Unknown Uncoded 08/27/20 00:30 Erythromyci Allergy Unknown Uncoded 08/27/20 00:30 Latex Allergy Unknown Uncoded 08/27/20 00:30 Penicillins Allergy Unknown Uncoded 08/27/20 00:30 Home Meds Home Medications Medication Instructions Recorded Confirmed topiramate 100 mg tablet 100 mg PO QAM tab 06/26/18 08/27/20 metformin 500 mg tablet 500 mg PO QDL 12/04/18 08/27/20 furosemide [Lasix] 40 mg PO QAM 03/13/19 08/27/20 atorvastatin 10 mg PO DAILY 08/08/19 08/27/20 albuterol sulfate 90 mcg/actuation 2 puffs INH QID PRN gm 01/25/20 08/27/20 aerosol inhaler nitroglycerin 0.4 mg sublingual 0.4 mg SL Q5M PRN tab 01/25/20 08/27/20 tablet Chewable Gummie Multivitamin 2 tab PO DAILY 08/12/20 08/27/20 aspirin [Aspir-81] 81 mg PO DAILY 08/12/20 08/27/20 cyanocobalamin (vitamin B-12) 1,000 mcg IM Q30D 08/12/20 08/27/20 [Vitamin B-12] cyanocobalamin (vitamin B-12) 1,000 mcg PO DAILY 08/12/20 08/27/20 [Vitamin B-12] ferrous sulfate 325 mg PO DAILY 08/12/20 08/27/20 modafinil 100 mg PO DAILY 08/12/20 08/27/20 nystatin 1 applic TOPICAL BID 08/12/20 08/27/20 sitagliptin-metformin [Janumet] 1 tab PO BIDM 08/12/20 08/27/20 Previous Rx's Medication Instructions Recorded levetiracetam [Keppra] 1,000 mg PO BID #60 tab 03/21/19 metoprolol succinate [Toprol XL] 50 mg PO DAILY #30 tab 03/21/19 spironolactone 12.5 mg PO DAILY #0 tab 03/21/19 Results & Data (ED) Vital Signs Vital Signs - 24 hr 08/27/20 00:22 08/27/20 01:07 Temperature 36.7 C Temperature Source Oral Pulse Rate 127 H Pulse Rate [Apical] 121 H Respiratory Rate 20 21 Respiratory Effort / Characteristics Non-Labored Respiratory Depth Normal Normal Blood Pressure 114/83 Blood Pressure [Right Arm] 130/84 Blood Pressure Mean 93 Blood Pressure Mean [Right Arm] 99 Blood Pressure Position Sitting Blood Pressure Position [Right Arm] Sitting Pulse Oximetry 93 94 Oxygen Delivery Method Nasal Cannula Nasal Cannula Oxygen Flow Rate 2 3 Sepsis Recent Fever Within 48 Hours No Sepsis New/Unexplained Change in Mental Status N/A Sepsis Action Taken by Nursing No Action Required Laboratory Data Result diagrams: 08/27/20 00:50 08/27/20 00:50 Lab Results 08/27/20 08/27/20 Range/Units 00:50 00:50 WBC 7.12 (4.8-10.8) K/uL RBC 3.94 L (4.2-5.4) M/uL Hgb 10.8 L (12.0-16.0) g/dL Hct 36.3 L (37-47) % MCV 92.1 (80-100) fL MCH 27.4 (25-34) pg MCHC 29.8 L (32-36) g/dL RDW Std Deviation 49.2 H (36.4-46.3) fL RDW Coeff of Ewa 14.5 (11.5-14.5) % Plt Count 157 (130-400) K/uL MPV 10.5 H (7.4-10.4) fL Immature Gran % (Auto) 0.3 % Neut % (Auto) 83.5 % Lymph % (Auto) 7.9 % [place] % (Auto) 6.9 % Eos % (Auto) 1.3 % Baso % (Auto) 0.1 % Neut # (Auto) 5.95 (1.4-6.5) K/uL Lymph # (Auto) 0.56 L (1.2-3.4) K/uL [place] # (Auto) 0.49 (0.11-0.59) K/uL Eos # (Auto) 0.09 (0-0.5) K/uL Baso # (Auto) 0.01 (0-0.2) K/uL Immature Gran # (Auto) 0.02 (0.00-0.02) K/uL Sodium 141 (136-145) mmol/L Potassium 4.0 (3.5-5.1) mmol/L Chloride 104 (98-107) mmol/L Carbon Dioxide 36 H (21-32) mmol/L Anion Gap 1.0 L (3-11) BUN 15 (7-18) mg/dl Creatinine 0.88 (0.6-1.2) mg/dl Est Cr Clr Drug Dosing 69.7 ml/min Est GFR ( Amer) 81.6 Est GFR (Non-Af Amer) 70.4 BUN/Creatinine Ratio 17.3 (10-20) Glucose 184 H (70-99) mg/dl Calcium 8.6 (8.5-10.1) mg/dl Total Bilirubin 0.3 (0.2-1) mg/dl AST 14 L (15-37) U/L ALT 17 (12-78) U/L Alkaline Phosphatase 100 (45-117) U/L Total Protein 6.8 (6.4-8.2) gm/dl Albumin 2.9 L (3.4-5.0) gm/dl Globulin 3.9 (2.5-4.0) gm/dl Albumin/Globulin Ratio 0.7 L (0.9-2) Discharge Plan Visit Data Chief Complaint: Seizure Stated Complaint: SEIZURE ED Provider: Marilu Garsia Discharge Problem: Seizure Patient Disposition: Home - Self-Care Discharge Instructions Christopher/Other Patient Handouts: ED [facility] Seizure Activity Restrictions/Additional Instructions: Take your Keppra as directed You should stay with your boyfriend at all times in case you have another seizure Return to the emergency department if you have any further seizure activity. Forms Stand Alone Forms: [facility], Virtual Emergency Department, Important Visit Information Prescriptions Prescriptions: No Action topiramate [Topamax] 100 mg tablet 100 mg PO QAM RF: 0 metformin 500 mg tablet 500 mg PO QDL RF: 0 albuterol sulfate 90 mcg/actuation HFA aerosol inhaler 2 puffs INH QID PRN (Reason: Shortness Of Breath Or Wheezing) RF: 0 nitroglycerin 0.4 mg tablet, sublingual 0.4 mg SL Q5M PRN (Reason: Chest Pain) RF: 0 atorvastatin 10 mg Tablet 10 mg PO DAILY RF: 0 furosemide [Lasix] 40 mg Tablet 40 mg PO QAM RF: 0 metoprolol succinate [Toprol XL] 50 mg tablet extended release 24 hr 50 mg PO DAILY Qty: 30 RF: 0 levetiracetam [Keppra] 500 mg Tablet 1,000 mg PO BID Qty: 60 RF: 0 spironolactone 25 mg Tablet 12.5 mg PO DAILY Qty: 0 RF: 0 cyanocobalamin (vitamin B-12) [Vitamin B-12] 1,000 mcg Tablet 1,000 mcg PO DAILY RF: 0 aspirin [Aspir-81] 81 mg Tablet,Delayed Release (Dr/Ec) 81 mg PO DAILY RF: 0 cyanocobalamin (vitamin B-12) [Vitamin B-12] 1,000 mcg/mL Solution 1,000 mcg IM Q30D RF: 0 ferrous sulfate 325 mg (65 mg iron) Tablet 325 mg PO DAILY RF: 0 nystatin 100,000 unit/gram Powder 1 applic TOPICAL BID RF: 0 modafinil 100 mg Tablet 100 mg PO DAILY RF: 0 Janumet 50-500 mg tablet 1 tab PO BIDM RF: 0 Chewable Gummie Multivitamin 2 tab PO DAILY RF: 0 Referrals Referrals: Trisha Castillo MD [Primary Care Provider] -
[2020-08-27] MEDS ORDERED: LORazepam 2 MG/4 ML VIAL ONE (03:53)
[2020-08-27] MEDS ORDERED: levETIRAcetam 1,000 MG in 0.9 % SODIUM CHLORIDE 100 ML IV STA (03:55)
[2020-08-27] MEDS ORDERED: SODIUM CHLORIDE 0.9% 500 ML IV STA (04:18)
[2020-08-27] MEDS ORDERED: LORazepam 2 MG/4 ML VIAL IV STA (04:18)
[2020-08-27] MEDS ORDERED: SODIUM CHLORIDE 0.9% 1000ML 1,000 ML IV SCH ×2 (04:30→07:14)
--- NOTE | 2020-08-27 06:00 | History & Physical Report ---
Date of Service August 27, 2020 Assessment & Plan (1) Seizure: Patient with witnessed seizure in ER. Most likely d/t medication nonadherance. Electrolytes WNL -Continue Keppra -Continue Topamax -Awaiting Keppra level -Check Mg, PO4, UA -Seizure precautions -Aspiration precautions Present on Admission?: Yes (2) Asthma: Chronic. No wheeze, SOB, hypoxia presently -Albuterol PRN Present on Admission?: Yes (3) Diabetes mellitus, type II: Chronic. Blood sugar elevated at 184 -Lantus 7u BID -ISS -Goal blood sugar 100-140 -Hold oral agents, metformin, Janumet Present on Admission?: Yes (4) Hypertension: Blood pressure improved after IVF -Continue to monitor -Continue Metoprolol 50mg po daily Present on Admission?: Yes (5) Venous stasis ulcers of both lower extremities: Afebrile. Dressings in place -Wound care daily and as needed F/E/N - NSS at 125mL/hr, monitor electrolytes and correct as needed, Heart healthy diet as tolerated Code - Full Dispo - Admit to medical/tele Of note, per EMS evaluation -patient's home was very disheveled and poorly kempt. Case management evaluation placed for possible placement needs. Present on Admission?: Yes History of Present Illness Chief Complaint: seizure Primary Care Provider: Trisha Castillo MD Gimla Toro is a 60yo C female with presenting from home after having a seizure. Patient sedated in the ER after receiving IV ativan. History obtained through chart review and discussion with ER team. Per report, patient had a seizure at home that was witnessed by her boyfriend. EMS was called and she was brought to [facility] ER. Patient was doing well initially and was being prepared for DC to home when she had a second seizure. Seizure described as tonic-clonic with arms raised above her head and shaking. Oxygen saturation 60% during seizure. She was administered Keppra x 1gm, Ativan x 2mg which broke the seizure. Patient's blood pressure decreased after medication administration to 84/42. She was given IV NSS with improvement. Currently 109/60. Patient persistently tachycardic in 120's ER Course: [place] NSS, Keppra x 1gm IV, Ativan x 2mg IV Allergies Allergy/AdvReac Type Severity Reaction Status Date / Time ceftaroline fosamil Allergy Mild ITCHING Verified 08/27/20 00:30 HANDS latex Allergy Mild Unknown Verified 08/27/20 00:30 SABINE Inhibitors Allergy Unknown Unknown Verified 08/27/20 00:30 codeine Allergy Unknown Unknown Verified 08/27/20 00:30 erythromycin base Allergy Unknown Unknown Verified 08/27/20 00:30 Iodinated Contrast Media Allergy Unknown ` Verified 08/27/20 00:30 acetaminophen Allergy Unresponsiv Verified 08/27/20 00:30 [From Tylenol-Codeine] e Iodine and Iodide Containing Allergy Unknown Verified 08/27/20 00:30 Produc morphine Allergy Unknown Verified 08/27/20 00:30 Penicillins AdvReac Mild MAKES HER Verified 08/27/20 00:30 "FUNNY IN THE HEAD" SABINE Inhibitors Allergy Unknown Uncoded 08/27/20 00:30 Contrast Media Ready-Box MISC Allergy Unknown Uncoded 08/27/20 00:30 Erythromyci Allergy Unknown Uncoded 08/27/20 00:30 Latex Allergy Unknown Uncoded 08/27/20 00:30 Penicillins Allergy Unknown Uncoded 08/27/20 00:30 Home Medications Home Medications Medication Instructions Recorded Confirmed Type topiramate 100 mg tablet 100 mg PO QAM tab 06/26/18 08/27/20 History metformin 500 mg tablet 500 mg PO QDL 12/04/18 08/27/20 History furosemide [Lasix] 40 mg PO QAM 03/13/19 08/27/20 History levetiracetam [Keppra] 1,000 mg PO BID #60 tab 03/21/19 08/27/20 Rx metoprolol succinate [Toprol XL] 50 mg PO DAILY #30 tab 03/21/19 08/27/20 Rx spironolactone 12.5 mg PO DAILY #0 tab 03/21/19 08/27/20 Rx atorvastatin 10 mg PO DAILY 08/08/19 08/27/20 History albuterol sulfate 90 mcg/actuation 2 puffs INH QID PRN gm 01/25/20 08/27/20 History aerosol inhaler nitroglycerin 0.4 mg sublingual 0.4 mg SL Q5M PRN tab 01/25/20 08/27/20 History tablet Chewable Gummie Multivitamin 2 tab PO DAILY 08/12/20 08/27/20 History aspirin [Aspir-81] 81 mg PO DAILY 08/12/20 08/27/20 History cyanocobalamin (vitamin B-12) 1,000 mcg IM Q30D 08/12/20 08/27/20 History [Vitamin B-12] cyanocobalamin (vitamin B-12) 1,000 mcg PO DAILY 08/12/20 08/27/20 History [Vitamin B-12] ferrous sulfate 325 mg PO DAILY 08/12/20 08/27/20 History modafinil 100 mg PO DAILY 08/12/20 08/27/20 History nystatin 1 applic TOPICAL BID 08/12/20 08/27/20 History sitagliptin-metformin [Janumet] 1 tab PO BIDM 08/12/20 08/27/20 History Past Med/Surg History Medical History (Updated 08/27/20 @ 06:27 by Cynthia Lopez DO) Adenoma of large intestine Asthma Cardiomyopathy Cellulitis 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, managed as type 2 Diverticulosis DVT (deep venous thrombosis) Encephalopathy GERD (gastroesophageal reflux disease) Hyperlipidemia LDL goal <100 Left bundle branch block (LBBB) Lymphedema MSSA (methicillin susceptible Staphylococcus aureus) Obesity Rectal polyp Seizure Sleep apnea Systolic CHF Thyroid nodule Surgical History H/O sinus surgery H/O: hysterectomy Tubal ligation status Family History Father Hypertension Stroke Sister Seizure Brother Seizure Mother Leukemia Social History Smoking Status: Never smoker Second Hand Exposure: No; Hx Alcohol Use: No Hx Substance Use: No Preferred Language: Bulgarian Communication Ability: Effective [employer] Required: No Beliefs That Will Affect Care: None marital status: Life Partner Current Living Situation: Significant Other Current Living Situation Comment: lives with boyfriend, and has home care givers How many Children do You have: 4 Feels Safe at Home: Yes Assistive Devices: Oxygen - Continuous Review of Systems Review of Systems: Unobtainable due to reduced consciousness Physical Exam Physical Exam: General: patient somnolent, minimally arousable after receiving IV Ativan, she grimaces to pain, not following commands at present Skin: warm, dry, bilateral LE wounds with dressings in place. Some old drainage noted on bandage HEENT: NC/AT, PERRL, , anicteric sclera, conjunctiva without injection, external ear normal to inspection and nontender, nares patent, moist mucus membranes, poor dentition, +tongue bruising with blood in mouth, neck supple, trachea midline, no LAD, no thyromegaly, no JVD Heart: +S1/S2, regular, tachycardic, no m/r/g Lungs: equal air entry bilaterally, no rales/rhonchi/wheezes Abd: +BS, soft, ND, patient grimaces to palpation, no masses/organomegaly/ascites Ext: warm, 2+ pulses in UE/LE bilaterally, wound dressings in place Neuro: patient minimally arousable after receiving IV Ativan, grimacing to pain, protecting airway, no functional deficits noted prior to Ativan Results & Data Results & Data ([facility]) Vital Signs (Past 12 Hours) Vital Signs Temp Pulse Pulse Resp BP BP Pulse Ox 08/27/20 05:45 124 H 24 109/60 99 08/27/20 05:30 126 H 24 114/55 L 98 08/27/20 05:18 125 H 24 108/54 L 98 08/27/20 05:00 124 H 24 93/42 L 98 08/27/20 04:41 123 H 17 84/42 L 96 08/27/20 04:13 135 H 18 124/58 L 99 08/27/20 03:54 127 H 28 H 114/54 L 97 08/27/20 01:53 117 H 19 115/73 100 08/27/20 01:07 121 H 21 130/84 94 08/27/20 00:22 36.7 C 127 H 20 114/83 93 Laboratory Results Lab Results 08/27/20 08/27/20 Range/Units 00:50 00:50 WBC 7.12 (4.8-10.8) K/uL RBC 3.94 L (4.2-5.4) M/uL Hgb 10.8 L (12.0-16.0) g/dL Hct 36.3 L (37-47) % MCV 92.1 (80-100) fL MCH 27.4 (25-34) pg MCHC 29.8 L (32-36) g/dL RDW Std Deviation 49.2 H (36.4-46.3) fL RDW Coeff of Ewa 14.5 (11.5-14.5) % Plt Count 157 (130-400) K/uL MPV 10.5 H (7.4-10.4) fL Immature Gran % (Auto) 0.3 % Neut % (Auto) 83.5 % Lymph % (Auto) 7.9 % [place] % (Auto) 6.9 % Eos % (Auto) 1.3 % Baso % (Auto) 0.1 % Neut # (Auto) 5.95 (1.4-6.5) K/uL Lymph # (Auto) 0.56 L (1.2-3.4) K/uL [place] # (Auto) 0.49 (0.11-0.59) K/uL Eos # (Auto) 0.09 (0-0.5) K/uL Baso # (Auto) 0.01 (0-0.2) K/uL Immature Gran # (Auto) 0.02 (0.00-0.02) K/uL Sodium 141 (136-145) mmol/L Potassium 4.0 (3.5-5.1) mmol/L Chloride 104 (98-107) mmol/L Carbon Dioxide 36 H (21-32) mmol/L Anion Gap 1.0 L (3-11) BUN 15 (7-18) mg/dl Creatinine 0.88 (0.6-1.2) mg/dl Est Cr Clr Drug Dosing 69.7 ml/min Est GFR ( Amer) 81.6 Est GFR (Non-Af Amer) 70.4 BUN/Creatinine Ratio 17.3 (10-20) Glucose 184 H (70-99) mg/dl Calcium 8.6 (8.5-10.1) mg/dl Total Bilirubin 0.3 (0.2-1) mg/dl AST 14 L (15-37) U/L ALT 17 (12-78) U/L Alkaline Phosphatase 100 (45-117) U/L Total Protein 6.8 (6.4-8.2) gm/dl Albumin 2.9 L (3.4-5.0) gm/dl Globulin 3.9 (2.5-4.0) gm/dl Albumin/Globulin Ratio 0.7 L (0.9-2) PG Care Time/CCT Total # of Minutes Spent Total Time Spent with Patient: Total time spent is greater than 50% in coordination of care (as documented) at patient's floor/unit and/or counseling patient: Coding Level of Care Code 14685 Initial Inpt Care Lvl 3 Diagnoses Seizure R56.9 Asthma J45.909 Asthma severity: unspecified severity Asthma persistence: unspecified Asthma complication type: unspecified Diabetes mellitus, type II E11.9 Diabetes mellitus show host/hostess insulin use: without [facility] use Diabetes mellitus complication status: without complication Hypertension I10 Hypertension type: essential hypertension Venous stasis ulcers of both lower extremities I83.019; I83.029; L97.919; L97.929 (1) Asthma Asthma severity: unspecified severity Asthma persistence: unspecified Asthma complication type: unspecified Qualified Code(s): J45.909 - Unspecified asthma, uncomplicated (2) Diabetes mellitus, type II Diabetes mellitus show host/hostess insulin use: without show host/hostess use Diabetes mellitus complication status: without complication Qualified Code(s): E11.9 - Type 2 diabetes mellitus without complications (3) Hypertension Hypertension type: essential hypertension Qualified Code(s): I10 - Essential (primary) hypertension
[2020-08-27] MEDS ORDERED: DEXTROSE 50% 50 ML SYRINGE IV PRN (07:14)
[2020-08-27] MEDS ORDERED: GLUCOSE 10 TABS/TUBE PO PRN (07:14)
[2020-08-27] MEDS ORDERED: GLUCOSE 40% GEL 15 GM TUBE PO PRN (07:14)
[2020-08-27] MEDS ORDERED: CARBOHYDRATES FOR HYPOGLYCEMIA PO PRN (07:14)
[2020-08-27] MEDS ORDERED: GLUCAGON FOR INJ 1 MG VIAL SQ PRN (07:14)
[2020-08-27] MEDS: INSULIN ASPART 100 UNITS/ML 3 ML PEN SC SCH ×4 (08:02→21:16)
--- NOTE | 2020-08-27 08:55 | XRay Report ---
XR chest 1V portable HISTORY: 60 years-old Female admission, seizure acute seizure like activity COMPARISON: Chest radiograph 03/22/2020 TECHNIQUE: Portable AP view of the chest FINDINGS: Cardiac silhouette is moderately enlarged. Mild pulmonary vascular congestion. No pneumothorax or lar ge pleural effusion. Mild blunting of the costophrenic angles. Mild left basilar opacities. Healed re mote right-sided rib fractures. Degenerative changes of the shoulders and spine. IMPRESSION: 1. Cardiomegaly with mild pulmonary vascular congestion. 2. Retrocardiac opacities favor atelectasis. Pneumonitis considered less likely. ACT 112: Negative or not required by law. The above report was generated using voice recognition software. It may contain grammatical, syntax o r spelling errors. Electronically signed by: Hung Camejo M.D. 08/27/2020 8:54 AM
[2020-08-27 09:16] LABS: Magnesium 2.1 mg/dl (1.8-2.4); Phosphorus 3.9 mg/dl (2.5-4.9)
[2020-08-27] MEDS: CYANOCOBALAMIN 500 MCG TABLET (VITAMIN B-12) PO SCH (10:01)
[2020-08-27] MEDS: ATORVASTATIN 10 MG TAB PO SCH (10:01)
[2020-08-27] MEDS: FUROSEMIDE 40 MG TAB PO SCH (10:02)
[2020-08-27] MEDS: SPIRONOLACTONE 12.5 MG TAB PO SCH (10:02)
[2020-08-27] MEDS: METOPROLOL SUCC 50MG EXT REL TAB PO SCH (10:02)
[2020-08-27] MEDS: levETIRAcetam 500 MG TAB PO SCH ×2 (10:02→20:32)
[2020-08-27] MEDS: TOPIRAMATE 100 MG TAB PO SCH (10:02)
[2020-08-27] MEDS: FERROUS SULFATE 325 MG TAB PO SCH (10:02)
[2020-08-27] MEDS: ASPIRIN 81 MG ECTAB PO SCH (10:02)
[2020-08-27] MEDS: INSULIN GLARGINE SOLOSTAR 100 UNITS/ML 3 ML PEN SC SCH ×2 (10:03→20:32)
[2020-08-27] MEDS: NYSTATIN POWDER 15GM BTL EXT SCH ×2 (10:03→20:32)
[2020-08-27] MEDS: ENOXAPARIN INJ 40 MG/0.4 ML SYR SQ SCH ×2 (10:37→20:32)
[2020-08-27] MEDS: modafiniL 100 MG TAB PO SCH (10:37)
--- NOTE | 2020-08-27 20:34 | History & Physical Bridge Note ---
Date of Service August 27, 2020 History & Physical Bridge Note Patient seen and examined this morning. She is still quite lethargic from Ativan in the ED. - Continue home meds - Monitor for further seizure - If any seizures, will consult neurology. - Wound care for her legs which appear to be long-standing when reviewing notes. - Left leg in particular looks more erythematous and goes further down her ankle compared to prior images in the computer. Will start vancomycin.
[2020-08-27] MEDS ORDERED: VANCOMYCIN CONSULT ACTIVE PRN (22:31)
--- NOTE | 2020-08-27 22:54 | Pharmacy Report ---
Pharmacy Abx Dose Short Note - Date of Service August 27, 2020 - Assessment & Plan Assessment 60 year old F receiving vancomycin for possible skin/soft tissue infection Plan Vancomycin * Ordered loading dose of 2500 mg x 1 (~25 mg/kg/dose) * Patient is not candidate for vancomycin AUC dosing, therefore will utilize estimated kinetics for dosing. Will start vancomycin 1250 mg (~13 mg/kg) iv q 12 hrs to achieve estimated trough ~15 mcg/ml (goal for cellulitis) * Estimated kinetics : t 1/2~11 hrs, ke~0.063 hr-1, CrCl ~70 ml/min * Less than traditional dose selected due to increase risk of accumulation with vancomycin d/t BMI >35 kg/m2. Could consider transition to daptomycin if plan to be on IV abx's for extended time Pharmacy will continue to follow and will adjust dose/frequency as necessary. Thank you.
[2020-08-27] MEDS ORDERED: VANCOMYCIN HCL 2,500 MG in SODIUM CHLORIDE 0.9% 500 ML IV ONE (23:00)
--- NOTE | 2020-08-28 05:56 | Electrocardiogram Report ---
Test Reason : Blood Pressure : / mmHG Vent. Rate : 125 BPM Atrial Rate : 127 BPM P-R Int : 160 ms QRS Dur : 156 ms QT Int : 342 ms P-R-T Axes : 032 -08 133 degrees QTc Int : 493 ms Sinus tachycardia Left bundle branch block Abnormal ECG When compared with ECG of 12-AUG-2020 14:13, Premature ventricular complexes are no longer Present Confirmed by Jonathan Brandt ([id number] on 08/28/2020 5:56:12 AM Referred By: REFERRED SELF Confirmed By:Jonathan Brandt
[2020-08-28 06:12] LABS: Hematocrit (blood only) 38.3 % (37-47); Hemoglobin 11.2 g/dL (12.0-16.0); Mean Corpuscular Hemoglobin 27.1 pg (25-34); Mean Corpuscular Hgb Conc 29.2 g/dL (32-36); Mean Corpuscular Volume 92.5 fL (80-100); Mean Platelet Volume 10.7 fL (7.4-10.4); Platelet Count 140 K/uL (130-400); RDW Coefficient of Variation 14.6 % (11.5-14.5); RDW Standard Deviation 48.9 fL (36.4-46.3); Red Blood Count 4.14 M/uL (4.2-5.4); White Blood Count 6.34 K/uL (4.8-10.8)
[2020-08-28 06:32] LABS: Estimated Average Glucose 171 mg/dl; Hemoglobin A1C 7.6 % (4.5-5.6)
[2020-08-28 06:47] LABS: BUN Creatinine Ratio 16.8 (10-20); Creatinine Clr Calc Pharmacy 80.7 ml/min; Est GFR (African American) 97.4; Est GFR (Non-African American) 84.1; Potassium 3.6 mmol/L (3.5-5.1)
[2020-08-28] MEDS: INSULIN ASPART 100 UNITS/ML 3 ML PEN SC SCH ×4 (09:03→20:21)
[2020-08-28] MEDS: INSULIN GLARGINE SOLOSTAR 100 UNITS/ML 3 ML PEN SC SCH ×2 (09:05→20:21)
[2020-08-28] MEDS: levETIRAcetam 500 MG TAB PO SCH ×2 (09:07→20:17)
[2020-08-28] MEDS: TOPIRAMATE 100 MG TAB PO SCH (09:07)
[2020-08-28] MEDS: ENOXAPARIN INJ 40 MG/0.4 ML SYR SQ SCH ×2 (09:24→20:17)
[2020-08-28] MEDS: modafiniL 100 MG TAB PO SCH (09:36)
[2020-08-28] MEDS: FERROUS SULFATE 325 MG TAB PO SCH (09:36)
[2020-08-28] MEDS: ASPIRIN 81 MG ECTAB PO SCH (09:36)
[2020-08-28] MEDS: FUROSEMIDE 40 MG TAB PO SCH (09:36)
[2020-08-28] MEDS: SPIRONOLACTONE 12.5 MG TAB PO SCH (09:36)
[2020-08-28] MEDS: NYSTATIN POWDER 15GM BTL EXT SCH ×2 (09:36→20:23)
[2020-08-28] MEDS: CYANOCOBALAMIN 500 MCG TABLET (VITAMIN B-12) PO SCH (09:36)
[2020-08-28] MEDS: METOPROLOL SUCC 50MG EXT REL TAB PO SCH (09:36)
[2020-08-28] MEDS: ATORVASTATIN 10 MG TAB PO SCH (09:36)
[2020-08-28] MEDS ORDERED: VANCOMYCIN HCL 1,250 MG in SODIUM CHLORIDE 0.9% 250 ML IV SCH (11:00)
[2020-08-28] MEDS: DAPTOmycin 350 MG in SYRINGE 0 ML IV SCH (18:13)
--- NOTE | 2020-08-28 21:36 | Hospitalist Progress Note ---
Date of Service August 28, 2020 Assessment & Plan (1) Seizure: Patient with witnessed seizure in ER. Most likely d/t medication nonadherance. Electrolytes WNL It appears this is due to non compliance. At this point, patient wants to go home. Unsure about discharge disposition as patient is non compliant with her medications. Had extensive talk with patient and will like to see her take her medicine via mouth here. At this point, patient is not at an imminent danger to her self. -Continue Keppra -Continue Topamax -Awaiting Keppra level -Check Mg, PO4, UA -Seizure precautions -Aspiration precautions (2) Asthma: Chronic. No wheeze, SOB, hypoxia presently -Albuterol PRN (3) Diabetes mellitus, type II: Chronic. Blood sugar elevated at 184 -Lantus 7u BID -ISS -Goal blood sugar 100-140 -Hold oral agents, metformin, Janumet (4) Hypertension: Blood pressure improved after IVF -Continue to monitor -Continue Metoprolol 50mg po daily (5) Venous stasis ulcers of both lower extremities: Afebrile. Dressings in place -Wound care daily and as needed Code - Full Admission and Anticipated Discharge Date Admission Date: August 27, 2020 Subjective Patient is complaining that she wants to go home. Nursing states that she has been refusing oral medications. She is currently on IV meds. D/W case management, OOA is involved. Review of Systems Review of Systems: All systems reviewed & are unremarkable except as noted in HPI & below Physical Exam Physical Exam: General: Awake and alert, wants to go home. Skin: warm, dry, bilateral LE wounds with dressings in place. Some old drainage noted on bandage HEENT: NC/AT, PERRL, , anicteric sclera, conjunctiva without injection, external ear normal to inspection and nontender, nares patent, moist mucus membranes, poor dentition, +tongue bruising with blood in mouth, neck supple, trachea midline, no LAD, no thyromegaly, no JVD Heart: +S1/S2, regular, tachycardic, no m/r/g Lungs: equal air entry bilaterally, no rales/rhonchi/wheezes Abd: +BS, soft, ND, patient grimaces to palpation, no masses/organomegaly/ascites Ext: warm, 2+ pulses in UE/LE bilaterally, wound dressings in place Neuro: awake and alert Results & Data Results & Data ([facility]) Vital Signs (Past 12 Hours) Vital Signs Temp Pulse Pulse Resp BP Pulse Ox 08/28/20 20:28 36.6 C 105 H 18 156/80 H 97 08/28/20 19:00 36.8 C 105 H 18 102/63 96 08/28/20 16:29 37.0 C 104 H 16 110/78 96 08/28/20 14:00 106 H 08/28/20 11:08 37.5 C 100 H 20 97/61 L PG Care Time/CCT Total # of Minutes Spent Total Time Spent with Patient: Total time spent is greater than 50% in co ordination of care (as documented) at patient's floor/unit and/or counseling patient: Coding Level of Care Code 94799 Subseq Hosp Care Lvl 3 Diagnoses Seizure R56.9 Asthma J45.909 Asthma complication type: unspecified Asthma persistence: unspecified Asthma severity: unspecified severity Diabetes mellitus, type II E11.9 Diabetes mellitus complication status: without complication Diabetes mellitus half-way insulin use: without half-way use Hypertension I10 Hypertension type: essential hypertension Venous stasis ulcers of both lower extremities I83.019; I83.029; L97.919; L97.929 Time Spent (min) 35 (1) Diabetes mellitus, type II Diabetes mellitus complication status: without complication Diabetes mellitus terminal clerk insulin use: without terminal clerk use Qualified Code(s): E11.9 - Type 2 diabetes mellitus without complications (2) Hypertension Hypertension type: essential hypertension Qualified Code(s): I10 - Essential (primary) hypertension (3) Asthma Asthma complication type: unspecified Asthma persistence: unspecified Asthma severity: unspecified severity Qualified Code(s): J45.909 - Unspecified asthma, uncomplicated
[2020-08-29 06:58] LABS: Creatinine Clr Calc Pharmacy 87.6 ml/min; Est GFR (African American) 107.6; Est GFR (Non-African American) 92.9
[2020-08-29] MEDS: INSULIN ASPART 100 UNITS/ML 3 ML PEN SC SCH ×4 (09:56→20:46)
[2020-08-29] MEDS: ENOXAPARIN INJ 40 MG/0.4 ML SYR SQ SCH ×2 (10:04→20:47)
[2020-08-29] MEDS: FERROUS SULFATE 325 MG TAB PO SCH ×2 (10:05→10:54)
[2020-08-29] MEDS: INSULIN GLARGINE SOLOSTAR 100 UNITS/ML 3 ML PEN SC SCH ×2 (10:05→20:47)
[2020-08-29] MEDS: CYANOCOBALAMIN 500 MCG TABLET (VITAMIN B-12) PO SCH ×2 (10:06→10:54)
[2020-08-29] MEDS: FUROSEMIDE 40 MG TAB PO SCH (10:06)
[2020-08-29] MEDS: ATORVASTATIN 10 MG TAB PO SCH (10:06)
[2020-08-29] MEDS: METOPROLOL SUCC 50MG EXT REL TAB PO SCH (10:07)
[2020-08-29] MEDS: ASPIRIN 81 MG ECTAB PO SCH (10:07)
[2020-08-29] MEDS: SPIRONOLACTONE 12.5 MG TAB PO SCH (10:07)
[2020-08-29] MEDS: NYSTATIN POWDER 15GM BTL EXT SCH ×2 (10:08→20:57)
[2020-08-29] MEDS: TOPIRAMATE 100 MG TAB PO SCH (10:08)
[2020-08-29] MEDS: modafiniL 100 MG TAB PO SCH (10:21)
[2020-08-29] MEDS: levETIRAcetam 500 MG TAB PO SCH ×2 (10:38→20:46)
[2020-08-29] MEDS: DAPTOmycin 350 MG in SYRINGE 0 ML IV SCH (18:51)
--- NOTE | 2020-08-29 22:50 | Hospitalist Progress Note ---
Date of Service August 29, 2020 Assessment & Plan (1) Seizure: Patient with witnessed seizure in ER. Most likely d/t medication nonadherance. Electrolytes WNL -Continue Keppra -Continue Topamax -Awaiting Keppra level -Check Mg, PO4, UA -Seizure precautions -Aspiration precautions -Placement issues, will likely need to consult OOA as PT is recommending rehab. (2) Asthma: Chronic. No wheeze, SOB, hypoxia presently -Albuterol PRN (3) Diabetes mellitus, type II: Chronic. Blood sugar elevated at 184 -Lantus 7u BID -ISS -Goal blood sugar 100-140 -Hold oral agents, metformin, Janumet (4) Hypertension: Blood pressure improved after IVF -Continue to monitor -Continue Metoprolol 50mg po daily (5) Venous stasis ulcers of both lower extremities: Afebrile. Dressings in place -Wound care daily and as needed F/E/N - NSS at 125mL/hr, monitor electrolytes and correct as needed, Heart healthy diet as tolerated Code - Full Admission and Anticipated Discharge Date Admission Date: August 27, 2020 Subjective Patient continues to state that she wants to go home. Review of Systems Review of Systems: All systems reviewed & are unremarkable except as noted in HPI & below Physical Exam Physical Exam: General: Awake and alert, wants to go home. Skin: warm, dry, bilateral LE wounds with dressings in place. Some old drainage noted on bandage HEENT: NC/AT, PERRL, , anicteric sclera, conjunctiva without injection, external ear normal to inspection and nontender, nares patent, moist mucus membranes, poor dentition, +tongue bruising with blood in mouth, neck supple, trachea midline, no LAD, no thyromegaly, no JVD Heart: +S1/S2, regular, tachycardic, no m/r/g Lungs: equal air entry bilaterally, no rales/rhonchi/wheezes Abd: +BS, soft, ND, patient grimaces to palpation, no masses/organomegaly/ascites Ext: warm, 2+ pulses in UE/LE bilaterally, wound dressings in place Neuro: awake and alert Results & Data Results & Data ([facility]) Vital Signs (Past 12 Hours) Vital Signs Temp Pulse Pulse Pulse Resp BP BP 08/29/20 22:26 36.6 C 83 20 131/79 10/30/20 19:23 36.8 C 91 H 20 135/81 08/29/20 15:00 87 08/29/20 14:15 87 08/29/20 14:05 36.3 C L 90 18 116/72 08/29/20 11:22 37.2 C 90 20 123/71 Pulse Ox 08/29/20 22:26 96 08/29/20 19:23 95 08/29/20 15:00 08/29/20 14:15 08/29/20 14:05 97 08/29/20 11:22 97 PG Care Time/CCT Total # of Minutes Spent Total Time Spent with Patient: Total time spent is greater than 50% in coordination of care (as documented) at patient's floor/unit and/or counseling patient: Coding Level of Care Code 13162 Subseq Hosp Care Lvl 2 Diagnoses Seizure R56.9 Asthma J45.909 Asthma complication type: unspecified Asthma persistence: unspecified Asthma severity: unspecified severity Diabetes mellitus, type II E11.9 Diabetes mellitus complication status: without complication Diabetes mellitus terminal operator insulin use: without terminal operator use Hypertension I10 Hypertension type: essential hypertension Venous stasis ulcers of both lower extremities I83.019; I83.029; L97.919; L97.929 Time Spent (min) 25 (1) Diabetes mellitus, type II Diabetes mellitus complication status: without complication Diabetes mellitus terminal operator insulin use: without terminal operator use Qualified Code(s): E11.9 - Type 2 diabetes mellitus without complications (2) Hypertension Hypertension type: essential hypertension Qualified Code(s): I10 - Essential (primary) hypertension (3) Asthma Asthma complication type: unspecified Asthma persistence: unspecified Asthma severity: unspecified severity Qualified Code(s): J45.909 - Unspecified asthma, uncomplicated
[2020-08-30] MEDS: levETIRAcetam 500 MG TAB PO SCH ×2 (09:25→22:22)
[2020-08-30] MEDS: modafiniL 100 MG TAB PO SCH (09:25)
[2020-08-30] MEDS: ATORVASTATIN 10 MG TAB PO SCH (09:26)
[2020-08-30] MEDS: FERROUS SULFATE 325 MG TAB PO SCH (09:26)
[2020-08-30] MEDS: FUROSEMIDE 40 MG TAB PO SCH (09:26)
[2020-08-30] MEDS: METOPROLOL SUCC 50MG EXT REL TAB PO SCH (09:26)
[2020-08-30] MEDS: NYSTATIN POWDER 15GM BTL EXT SCH ×2 (09:27→22:23)
[2020-08-30] MEDS: CYANOCOBALAMIN 500 MCG TABLET (VITAMIN B-12) PO SCH (09:27)
[2020-08-30] MEDS: ASPIRIN 81 MG ECTAB PO SCH (09:27)
[2020-08-30] MEDS: TOPIRAMATE 100 MG TAB PO SCH (09:27)
[2020-08-30] MEDS: SPIRONOLACTONE 12.5 MG TAB PO SCH (09:27)
[2020-08-30] MEDS: INSULIN GLARGINE SOLOSTAR 100 UNITS/ML 3 ML PEN SC SCH ×2 (09:29→22:22)
[2020-08-30] MEDS: INSULIN ASPART 100 UNITS/ML 3 ML PEN SC SCH ×4 (09:32→21:20)
[2020-08-30 09:33] LABS: Creatinine Clr Calc Pharmacy 89.6 ml/min; Est GFR (African American) 109.2; Est GFR (Non-African American) 94.2
[2020-08-30] MEDS: ENOXAPARIN INJ 40 MG/0.4 ML SYR SQ SCH ×2 (09:36→22:22)
[2020-08-30] MEDS: DAPTOmycin 350 MG in SYRINGE 0 ML IV SCH (16:16)
--- NOTE | 2020-08-30 22:36 | Hospitalist Progress Note ---
Date of Service August 30, 2020 Assessment & Plan (1) Seizure: Patient with witnessed seizure in ER. Most likely d/t medication nonadherance. Electrolytes WNL -Continue Keppra -Continue Topamax -Awaiting Keppra level -Check Mg, PO4, UA -Seizure precautions -Aspiration precautions -Placement issues, will likely need to consult OOA as PT is recommending rehab. Had another discussion with the patient, she states she needs to pay bills. Unable to convince her. will try again tomorrow. (2) Asthma: Chronic. No wheeze, SOB, hypoxia presently -Albuterol PRN (3) Diabetes mellitus, type II: Chronic. -Lantus 7u BID -ISS -Goal blood sugar 100-140 -Hold oral agents, metformin, Janumet (4) Hypertension: Blood pressure improved after IVF -Continue to monitor -Continue Metoprolol 50mg po daily (5) Venous stasis ulcers of both lower extremities: Afebrile. Dressings in place -Wound care daily and as needed Code - Full Admission and Anticipated Discharge Date Admission Date: August 27, 2020 Subjective Patient is a 60 yo femake who reports no new complaints. She wants to be discharged. Review of Systems Review of Systems: All systems reviewed & are unremarkable except as noted in HPI & below Physical Exam Physical Exam: General: Awake and alert Skin: warm, dry, bilateral LE wounds with dressings in place. HEENT: NC/AT, PERRL, , anicteric sclera, conjunctiva without injection, external ear normal to inspection and nontender, nares patent, moist mucus membranes, poor dentition, neck supple, trachea midline, no LAD, no thyromegaly, no JVD Heart: +S1/S2, regular, tachycardic, no m/r/g Lungs: equal air entry bilaterally, no rales/rhonchi/wheezes Abd: +BS, soft, ND, patient grimaces to palpation, no masses/organomegaly/ascites Ext: warm, 2+ pulses in UE/LE bilaterally, wound dressings in place Neuro: awake and alert Results & Data Results & Data ([facility]) Vital Signs (Past 12 Hours) Vital Signs Temp Pulse Pulse Resp BP Pulse Ox 08/30/20 18:50 36.8 C 87 16 120/78 98 08/30/20 15:06 36.9 C 87 16 137/79 95 08/30/20 15:00 87 PG Care Time/CCT Total # of Minutes Spent Total Time Spent with Patient: Total time spent is greater than 50% in coordination of care (as documented) at patient's floor/unit and/or counseling patient: Coding Level of Care Code 50210 Subseq Hosp Care Lvl 2 Diagnoses Seizure R56.9 Asthma J45.909 Asthma severity: unspecified severity Asthma persistence: unspecified Asthma complication type: unspecified Diabetes mellitus, type II E11.9 Diabetes mellitus usp insulin use: without usp use Diabetes mellitus complication status: without complication Hypertension I10 Hypertension type: essential hypertension Venous stasis ulcers of both lower extremities I83.019; I83.029; L97.919; L97.929 (1) Asthma Asthma severity: unspecified severity Asthma persistence: unspecified Asthma complication type: unspecified Qualified Code(s): J45.909 - Unspecified asthma, uncomplicated (2) Diabetes mellitus, type II Diabetes mellitus intermediate project manager insulin use: without intermediate project manager use Diabetes mellitus complication status: without complication Qualified Code(s): E11.9 - Type 2 diabetes mellitus without complications (3) Hypertension Hypertension type: essential hypertension Qualified Code(s): I10 - Essential (primary) hypertension
[2020-08-31] MEDS: ENOXAPARIN INJ 40 MG/0.4 ML SYR SQ SCH ×2 (09:19→22:04)
[2020-08-31] MEDS: SPIRONOLACTONE 12.5 MG TAB PO SCH (09:20)
[2020-08-31] MEDS: levETIRAcetam 500 MG TAB PO SCH ×2 (09:20→22:04)
[2020-08-31] MEDS: ATORVASTATIN 10 MG TAB PO SCH (09:20)
[2020-08-31] MEDS: TOPIRAMATE 100 MG TAB PO SCH (09:21)
[2020-08-31] MEDS: ASPIRIN 81 MG ECTAB PO SCH (09:21)
[2020-08-31] MEDS: FUROSEMIDE 40 MG TAB PO SCH (09:22)
[2020-08-31] MEDS: CYANOCOBALAMIN 500 MCG TABLET (VITAMIN B-12) PO SCH (09:22)
[2020-08-31] MEDS: METOPROLOL SUCC 50MG EXT REL TAB PO SCH (09:22)
[2020-08-31] MEDS: INSULIN GLARGINE SOLOSTAR 100 UNITS/ML 3 ML PEN SC SCH ×2 (09:24→22:04)
[2020-08-31] MEDS: INSULIN ASPART 100 UNITS/ML 3 ML PEN SC SCH ×4 (09:24→22:05)
[2020-08-31] MEDS: FERROUS SULFATE 325 MG TAB PO SCH (09:25)
[2020-08-31] MEDS: NYSTATIN POWDER 15GM BTL EXT SCH ×2 (09:30→22:06)
[2020-08-31] MEDS: modafiniL 100 MG TAB PO SCH (09:57)
[2020-08-31] MEDS: DAPTOmycin 350 MG in SYRINGE 0 ML IV SCH (16:45)
--- NOTE | 2020-08-31 22:36 | Hospitalist Progress Note ---
Date of Service August 31, 2020 Assessment & Plan (1) Seizure: Patient with witnessed seizure in ER. Most likely d/t medication nonadherance. Electrolytes WNL -Continue Keppra -Continue Topamax -Awaiting Keppra level -Check Mg, PO4, UA -Seizure precautions -Aspiration precautions -Placement issues, will likely need to consult OOA as PT/OT is recommending rehab. Had another discussion with the patient, she states she needs to pay bills. Unable to convince her, however she is now taking her oral medications. will need to have discussion with case management regarding her placement. (2) Asthma: Chronic. No wheeze, SOB, hypoxia presently -Albuterol PRN (3) Diabetes mellitus, type II: Chronic. -Lantus 7u BID -ISS -Goal blood sugar 100-140 -Hold oral agents, metformin, Janumet (4) Hypertension: Blood pressure improved after IVF -Continue to monitor -Continue Metoprolol 50mg po daily (5) Venous stasis ulcers of both lower extremities: Afebrile. Dressings in place -Wound care daily and as needed Code - Full Admission and Anticipated Discharge Date Admission Date: August 27, 2020 Subjective Patient reports she is not sure she wants to go to SNF, and states she wants to go home. She is taking her medications today. Review of Systems Review of Systems: All systems reviewed & are unremarkable except as noted in HPI & below Physical Exam Physical Exam: General: Awake and alert Skin: warm, dry, bilateral LE wounds with dressings in place. HEENT: NC/AT, PERRL, , anicteric sclera, conjunctiva without injection, external ear normal to inspection and nontender, nares patent, moist mucus membranes, poor dentition, neck supple, trachea midline, no LAD, no thyromegaly, no JVD Heart: +S1/S2, regular, tachycardic, no m/r/g Lungs: equal air entry bilaterally, no rales/rhonchi/wheezes Abd: +BS, soft, ND, patient grimaces to palpation, no masses/organomegaly/ascites Ext: warm, 2+ pulses in UE/LE bilaterally, wound dressings in place Neuro: awake and alert Results & Data Results & Data ([facility]) Vital Signs (Past 12 Hours) Vital Signs Temp Pulse Pulse Resp BP BP Pulse Ox 08/31/20 19:41 36.9 C 88 20 144/82 H 95 08/31/20 16:00 83 08/31/20 15:52 37.2 C 84 20 94/60 L 97 08/31/20 11:58 36.9 C 84 16 121/75 97 PG Care Time/CCT Total # of Minutes Spent Total Time Spent with Patient: Total time spent is greater than 50% in coordination of care (as documented) at patient's floor/unit and/or counseling patient: Coding Level of Care Code 58083 Subseq Hosp Care Lvl 2 Diagnoses Seizure R56.9 Asthma J45.909 Asthma complication type: unspecified Asthma persistence: unspecified Asthma severity: unspecified severity Diabetes mellitus, type II E11.9 Diabetes mellitus complication status: without complication Diabetes mellitus usp insulin use: without usp use Hypertension I10 Hypertension type: essential hypertension Venous stasis ulcers of both lower extremities I83.019; I83.029; L97.919; L97.929 Time Spent (min) 25 (1) Diabetes mellitus, type II Diabetes mellitus complication status: without complication Diabetes mellitus usp insulin use: without usp use Qualified Code(s): E11.9 - Type 2 diabetes mellitus without complications (2) Hypertension Hypertension type: essential hypertension Qualified Code(s): I10 - Essential (primary) hypertension (3) Asthma Asthma complication type: unspecified Asthma persistence: unspecified Asthma severity: unspecified severity Qualified Code(s): J45.909 - Unspecified asthma, uncomplicated
[2020-09-01 07:58] LABS: Creatinine Clr Calc Pharmacy 79.5 ml/min; Est GFR (African American) 100.6; Est GFR (Non-African American) 86.8
[2020-09-01] MEDS: ENOXAPARIN INJ 40 MG/0.4 ML SYR SQ SCH ×2 (08:25→21:24)
[2020-09-01] MEDS: levETIRAcetam 500 MG TAB PO SCH ×2 (08:26→21:25)
[2020-09-01] MEDS: ATORVASTATIN 10 MG TAB PO SCH (08:26)
[2020-09-01] MEDS: TOPIRAMATE 100 MG TAB PO SCH (08:26)
[2020-09-01] MEDS: METOPROLOL SUCC 50MG EXT REL TAB PO SCH (08:27)
[2020-09-01] MEDS: ASPIRIN 81 MG ECTAB PO SCH (08:27)
[2020-09-01] MEDS: FERROUS SULFATE 325 MG TAB PO SCH (08:27)
[2020-09-01] MEDS: SPIRONOLACTONE 12.5 MG TAB PO SCH (08:27)
[2020-09-01] MEDS: CYANOCOBALAMIN 500 MCG TABLET (VITAMIN B-12) PO SCH (08:29)
[2020-09-01] MEDS: FUROSEMIDE 40 MG TAB PO SCH (08:29)
[2020-09-01] MEDS: NYSTATIN POWDER 15GM BTL EXT SCH ×2 (08:29→21:27)
[2020-09-01] MEDS: INSULIN GLARGINE SOLOSTAR 100 UNITS/ML 3 ML PEN SC SCH ×2 (08:30→21:27)
[2020-09-01] MEDS: INSULIN ASPART 100 UNITS/ML 3 ML PEN SC SCH ×4 (08:31→21:26)
[2020-09-01] MEDS: modafiniL 100 MG TAB PO SCH (08:37)
[2020-09-01] MEDS: cephALEXin 500 MG CAP PO SCH ×2 (17:14→21:25)
[2020-09-01] MEDS: EUCERIN CR 120 GM JAR EXT PRN (17:16)
--- NOTE | 2020-09-01 20:28 | Hospitalist Progress Note ---
Date of Service September 01, 2020 Assessment & Plan (1) Seizure: By report patient with witnessed seizure in ER. Suspect medication noncompliance. Keppra level returned undetectable suggesting noncompliance with AEDs. Would not change keppra or topamax dosing. Reinforce compliance with med regimen. Cont seizure precautions. (2) Asthma: Chronic. No exacerbation at this time. (3) Diabetes mellitus, type II: HbA1C 7.6%. holding oral agents. lantus/novolog while here. (4) Hypertension: cont home meds (5) Venous stasis ulcers of both lower extremities: improved. I removed her dressings and, despite severe stasis changes, no open ulcers seen on exam today. cont local wound care. (6) Chronic respiratory failure with hypoxia: stable on home O2 amount - 2 L continuously. Obesity-hypoventilation syndrome?? (7) Cellulitis and abscess of leg: admitting physician felt she had LLE cellulitis. if indeed present it is improved. change IV antibiotics to PO keflex TID. (8) Hearing impaired: (9) Morbid obesity with BMI of 40.0-44.9, adult: BMI 42 (10) Ambulatory dysfunction: severe. does not walk at home. uses power chair. boyfriend met with case management today. he wants Ms Toro in rehab -- he cannot adequately care for her at home at this time. I agree rehab is best option, likely SNF level. (11) DVT prophylaxis: lovenox BID Admission and Anticipated Discharge Date Admission Date: August 27, 2020 Subjective patient laying in recliner chair during the visit. patient adamant about going home today. she uses a power chair at baseline. does not walk. confirms 2 L NC O2 chronically at baseline. severe hearing impairment during the visit. c/o knee pain - chronic. no other complaints. denies noncompliance with meds at home, but social work spoke with boyfriend w/ whom she lives - he confirms she does not take her meds. Review of Systems Constitutional: no fatigue and no anorexia Respiratory: no dyspnea Cardiovascular: no chest pain Gastrointestinal: no abdominal pain Physical Exam Constitutional: dysmorphic appearing, hearing impaired, NAD ENMT: external ear and nose normal, oropharynx normal Respiratory: normal respiratory effort, lungs clear to auscultation Cardiovascular: Rate/Rhythm: regular rate and regular rhythm Heart Sounds: normal S1 and normal S2; no murmur Vessels: posterior tibial pulses present and dorsalis pedis pulses present; no JVD Extremities: + edema (<1+ b/l ) Gastrointestinal (Abdomen): normal bowel sounds, soft, nontender, no hepatosplenomegaly Inspection/Auscultation: + abdomen distended (Mild) Skin: severe stasis changes b/l shins with thick, scaly, pink skin on shins; no ulcerations or skin breakdown today Psychiatric: Orientation: alert, oriented to person and oriented to place Results & Data Results & Data ([facility]) Vital Signs (Past 12 Hours) Vital Signs Temp Pulse Pulse Resp BP BP Pulse Ox 09/01/20 19:00 37.1 C 78 20 108/72 97 09/01/20 16:00 82 09/01/20 15:15 36.7 C 78 20 130/78 97 09/01/20 11:22 36.8 C 78 20 123/79 97 Laboratory Results Laboratory Results - last 24 hr 09/01/20 09/01/20 09/01/20 07:10 07:35 11:39 Creatinine 0.74 Est Cr Clr Drug Dosing 79.5 Est GFR ( Amer) 100.6 Est GFR (Non-Af Amer) 86.8 POC Glucose 115 H 161 H 09/01/20 16:41 Creatinine Est Cr Clr Drug Dosing Est GFR ( Amer) Est GFR (Non-Af Amer) POC Glucose 169 H PG Care Time/CCT Total # of Minutes Spent Total Time Spent with Patient: Total time spent is greater than 50% in coordination of care (as documented) at patient's floor/unit and/or counseling patient: Coding Level of Care Code 33900 Subseq Hosp Care Lvl 2 Diagnoses Seizure R56.9 Asthma J45.909 Asthma complication type: unspecified Asthma persistence: unspecified Asthma severity: unspecified severity Diabetes mellitus, type II E11.9 Diabetes mellitus complication status: without complication Diabetes mellitus jail insulin use: without jail use Hypertension I10 Hypertension type: essential hypertension Venous stasis ulcers of both lower extremities I83.019; I83.029; L97.919; L97.929 Chronic respiratory failure with hypoxia J96.11 Cellulitis and abscess of leg L03.119; L02.419 Hearing impaired H91.93 Hearing loss type: unspecified Laterality: bilateral Morbid obesity with BMI of 40.0-44.9, adult E66.01; Z68.41 Ambulatory dysfunction R26.2 DVT prophylaxis Z29.9 (1) Diabetes mellitus, type II Diabetes mellitus complication status: without complication Diabetes mellitus emt intermediate insulin use: without jail use Qualified Code(s): E11.9 - Type 2 diabetes mellitus without complications (2) Hypertension Hypertension type: essential hypertension Qualified Code(s): I10 - Essential (primary) hypertension (3) Asthma Asthma complication type: unspecified Asthma persistence: unspecified Asthma severity: unspecified severity Qualified Code(s): J45.909 - Unspecified asthma, uncomplicated (4) Hearing impaired Hearing loss type: unspecified Laterality: bilateral Qualified Code(s): H91.93 - Unspecified hearing loss, bilateral
[2020-09-02 07:30] LABS: BUN Creatinine Ratio 21.9 (10-20); Calcium 8.8 mg/dl (8.5-10.1); Creatinine Clr Calc Pharmacy 79.9 ml/min; Est GFR (Non-African American) 89.8; Potassium 3.7 mmol/L (3.5-5.1)
[2020-09-02 07:40] LABS: Thyroid Stimulating Hormone 2.74 uIu/ml (0.300-4.500)
[2020-09-02] MEDS: INSULIN GLARGINE SOLOSTAR 100 UNITS/ML 3 ML PEN SC SCH ×2 (09:51→21:49)
[2020-09-02] MEDS: CYANOCOBALAMIN 500 MCG TABLET (VITAMIN B-12) PO SCH (09:51)
[2020-09-02] MEDS: SPIRONOLACTONE 12.5 MG TAB PO SCH (09:51)
[2020-09-02] MEDS: cephALEXin 500 MG CAP PO SCH ×3 (09:51→21:47)
[2020-09-02] MEDS: modafiniL 100 MG TAB PO SCH (09:52)
[2020-09-02] MEDS: FERROUS SULFATE 325 MG TAB PO SCH (09:52)
[2020-09-02] MEDS: levETIRAcetam 500 MG TAB PO SCH ×2 (09:52→21:47)
[2020-09-02] MEDS: FUROSEMIDE 40 MG TAB PO SCH (09:52)
[2020-09-02] MEDS: EUCERIN CR 120 GM JAR EXT PRN ×2 (09:52→21:48)
[2020-09-02] MEDS: ATORVASTATIN 10 MG TAB PO SCH (09:52)
[2020-09-02] MEDS: METOPROLOL SUCC 50MG EXT REL TAB PO SCH (09:52)
[2020-09-02] MEDS: ASPIRIN 81 MG ECTAB PO SCH (09:52)
[2020-09-02] MEDS: TOPIRAMATE 100 MG TAB PO SCH (09:52)
[2020-09-02] MEDS: ENOXAPARIN INJ 40 MG/0.4 ML SYR SQ SCH ×2 (09:53→21:48)
[2020-09-02] MEDS: NYSTATIN POWDER 15GM BTL EXT SCH ×2 (09:53→21:48)
[2020-09-02] MEDS: INSULIN ASPART 100 UNITS/ML 3 ML PEN SC SCH ×4 (09:53→21:49)
--- NOTE | 2020-09-02 19:04 | Hospitalist Progress Note ---
Date of Service September 02, 2020 Assessment & Plan (1) Seizure: By report patient with witnessed seizure in ER. Suspect medication noncompliance. No recurrent seizures since admission. Keppra level returned undetectable suggesting noncompliance with AEDs. Would not change keppra or topamax dosing. Cont seizure precautions. (2) Asthma: Chronic. No exacerbation at this time. (3) Diabetes mellitus, type II: HbA1C 7.6%. holding oral agents. lantus/novolog while here. control acceptable. (4) Hypertension: cont home meds (5) Venous stasis ulcers of both lower extremities: resolved. just severe stasis changes at this time. (6) Chronic respiratory failure with hypoxia: stable on home O2 amount - 2 L continuously. Obesity-hypoventilation syndrome?? (7) Cellulitis and abscess of leg: admitting physician felt she had LLE cellulitis. if indeed present it is improved/resolved. finish course of PO keflex TID. (8) Hearing impaired: severe (9) Morbid obesity with BMI of 40.0-44.9, adult: BMI 41 (10) Ambulatory dysfunction: severe. does not walk at home. uses power chair. boyfriend met with case management yesterday. he wants Ms Toro in rehab -- he cannot adequately care for her at home at this time. I agree rehab is best option, likely SNF level. But patient refusing -- see below. (11) Intellectual disability: I am suspicious she has, at least, mild ID. She is dysmorphic appearing, does not seem to understand why returning home is not safe, lays in stool/urine and does not tell staff, etc. See HPI about my discussion with her today. I question her ability to have capacity. Will ask psych to weigh in on her capacity. (12) DVT prophylaxis: lovenox BID Admission and Anticipated Discharge Date Admission Date: August 27, 2020 Subjective patient sitting in recliner during my visit. OT was at bedside getting ready to work with her. she was incontinent of urine. all she said repeatedly was "I want to go home. I want to be home by Thanksgiving." when I told her she woulnd't be in the hospital until Thanksgiving she just repeated the same thing over and over. I tried to tell her that her boyfriend yesterday - who came to bedside while case management was here - could not take care of her at home she quickly would shift back to the issue of "I want to go home." no new issues overnight. Review of Systems Respiratory: no cough and no dyspnea Cardiovascular: no chest pain Gastrointestinal: no abdominal pain Physical Exam Constitutional: + morbidly obese; no acute distress ENMT: external ear and nose normal, oropharynx normal Respiratory: normal respiratory effort, lungs clear to auscultation Cardiovascular: Rate/Rhythm: regular rate and regular rhythm Heart Sounds: normal S1 and normal S2; no murmur Vessels: posterior tibial pulses present and dorsalis pedis pulses present; no JVD Extremities: + edema (<1+ b/l ) Gastrointestinal (Abdomen): normal bowel sounds, soft, nontender, no hepatosplenomegaly Inspection/Auscultation: + abdomen distended (Mild) Skin: severe stasis changes b/l shins - no change; no open sores or ulcerations Psychiatric: Orientation: alert, oriented to person and oriented to place Results & Data Results & Data ([facility]) Vital Signs (Past 12 Hours) Vital Signs Temp Pulse Pulse Resp BP Pulse Ox 09/02/20 17:00 82 09/02/20 16:30 36.8 C 96 H 18 113/76 91 09/02/20 08:05 36.6 C 85 20 118/73 99 09/02/20 08:00 77 BSGs wnl PG Care Time/CCT Total # of Minutes Spent Total Time Spent with Patient: Total time spent is greater than 50% in cheese cook rdination of care (as documented) at patient's floor/unit and/or counseling patient: Coding Level of Care Code 60937 Subseq Hosp Care Lvl 2 Diagnoses Seizure R56.9 Asthma J45.909 Asthma complication type: unspecified Asthma persistence: unspecified Asthma severity: unspecified severity Diabetes mellitus, type II E11.9 Diabetes mellitus complication status: without complication Diabetes mellitus intermediate manager insulin use: without senior living use Hypertension I10 Hypertension type: essential hypertension Venous stasis ulcers of both lower extremities I83.019; I83.029; L97.919; L97.929 Chronic respiratory failure with hypoxia J96.11 Cellulitis and abscess of leg L03.119; L02.419 Hearing impaired H91.93 Hearing loss type: unspecified Laterality: bilateral Morbid obesity with BMI of 40.0-44.9, adult E66.01; Z68.41 Ambulatory dysfunction R26.2 Intellectual disability F79 DVT prophylaxis Z29.9 (1) Hearing impaired Hearing loss type: unspecified Laterality: bilateral Qualified Code(s): H9 1.93 - Unspecified hearing loss, bilateral (2) Diabetes mellitus, type II Diabetes mellitus complication status: without complication Diabetes mellitus intermediate manager insulin use: without intermediate manager use Qualified Code(s): E11.9 - Type 2 diabetes mellitus without complications (3) Hypertension Hypertension type: essential hypertension Qualified Code(s): I10 - Essential (primary) hypertension (4) Asthma Asthma complication type: unspecified Asthma persistence: unspecified Asthma severity: unspecified severity Qualified Code(s): J45.909 - Unspecified asthma, uncomplicated
[2020-09-03 07:57] LABS: Creatinine Clr Calc Pharmacy 69.8 ml/min; Est GFR (African American) 87.6; Est GFR (Non-African American) 75.6
[2020-09-03] MEDS: modafiniL 100 MG TAB PO SCH (09:11)
[2020-09-03] MEDS: FERROUS SULFATE 325 MG TAB PO SCH (09:11)
[2020-09-03] MEDS: CYANOCOBALAMIN 500 MCG TABLET (VITAMIN B-12) PO SCH (09:11)
[2020-09-03] MEDS: ATORVASTATIN 10 MG TAB PO SCH (09:12)
[2020-09-03] MEDS: FUROSEMIDE 40 MG TAB PO SCH (09:12)
[2020-09-03] MEDS: METOPROLOL SUCC 50MG EXT REL TAB PO SCH (09:12)
[2020-09-03] MEDS: levETIRAcetam 500 MG TAB PO SCH ×2 (09:12→21:38)
[2020-09-03] MEDS: TOPIRAMATE 100 MG TAB PO SCH (09:13)
[2020-09-03] MEDS: cephALEXin 500 MG CAP PO SCH ×3 (09:13→21:38)
[2020-09-03] MEDS: SPIRONOLACTONE 12.5 MG TAB PO SCH (09:13)
[2020-09-03] MEDS: ASPIRIN 81 MG ECTAB PO SCH (09:13)
[2020-09-03] MEDS: ENOXAPARIN INJ 40 MG/0.4 ML SYR SQ SCH ×2 (09:14→21:36)
[2020-09-03] MEDS: INSULIN GLARGINE SOLOSTAR 100 UNITS/ML 3 ML PEN SC SCH ×2 (09:15→21:37)
[2020-09-03] MEDS: INSULIN ASPART 100 UNITS/ML 3 ML PEN SC SCH ×4 (09:15→21:37)
[2020-09-03] MEDS: EUCERIN CR 120 GM JAR EXT PRN ×2 (09:16→21:38)
[2020-09-03] MEDS: NYSTATIN POWDER 15GM BTL EXT SCH ×2 (09:16→21:38)
[2020-09-03] MEDS ORDERED: oxyCODONE HCL IR 5 MG TAB (IMMEDIATE RELEASE) PO PRN (09:27)
--- NOTE | 2020-09-03 10:29 | Psychiatric Consultation ---
Date of Consultation September 03, 2020 Impression / Recommendations Impression Dr. Cee Ceballos was directly involved in review and discussion of the patient's case and participated in medical decision making regarding treatment recommendations. RECOMMENDATIONS: 09/03 - Psychiatric consultation requested by hospitalist team to assess patient's capacity to refuse recommended discharge to a SNF/rehab facility. - Pt was interviewed regarding her understanding of discharge recommendations, specifically that transfer to a SNF/rehab facility is being recommended. Pt is able to verbalize her desire to return home, but was not able to provide adequate understanding of the risks associated with this decision at this time. Even after safety concerns were clearly verbalized to the patient, she could not repeat these considerations. She does not verbalize appreciation of the risks associated with this decision. It is felt that patient is not able to rationally manipulate discharge information in a meaningful way that acknowledges the serious concerns expressed by providers and family. Based on the conversation held with the patient today, I would have to agree that the patient does not presently have the capacity to refuse recommended discharge to SNF. - If this interpretation is supported, the next steps of treatment involve appointment of an alternate decision maker that can make discharge planning decisions for the duration of time in which patient lacks capacity to do this on her own. It does appear that the [facility] has been involved in the patient's case previously, and it is possible they may be able to provide additional support. - Pt denies history of psychiatric treatment or any acute concerns related to her mood or anxiety. There is no indication of need for inpatient psychiatric treatment. Pt denies any needs for outpatient psychiatric referral or additional supports at this time. Please reach out to our service with any additional questions or updates. Additional considerations regarding capacity evaluations: As a reminder, any medical provider involved in the patient's care can make a determination regarding capacity to make a specific treatment decision at a specific point in time. Capacity for appropriate medical decision-making can vary based on patient's present state, but also on the weight of the specific decision. In order for a patient to have capacity to make a specific treatment decision, they must meet the four following criteria: ability to recall/understand information related to the decision being made, appreciate their condition as well as the consequences of their decision, demonstrate ability to rationally process information being provided, and clearly communicate a choice. Pt may regain capacity later in her hospitalization, and ability to rationally manipulate information and make informed decisions should be routinely assessed for during interactions with the patient. Of note - she is very hard of hearing, and sound amplifier should be utilized at all times that treatment recommendations are being discussed. Psych History Identifying Data 60-year-old female admitted medically on 08/27/2020 s/p witnessed seizure which occurred at home. In the ED, patient experienced another seizure and history obtained suggested limited medication compliance. Pt was admitted medically for further observation and treatment. Psychiatric consultation has been requested at this time, as patient is presently refusing discharge recommendation for SNF/rehab placement. Chief Complaint "My legs." History of Present Illness Gilma Toro is a 60-year-old female admitted medically on 08/27/2020 after initially presenting to the ED s/p witnessed seizure. Pt experienced a second seizure while in the ED and medication adherence was called into question. Pt was ultimately admitted medically for further observation and treatment. Recommendation for discharge to a SNF/rehab, which patient is reportedly refusing at this time. Multiple supports have verbalized concern regarding patient being discharged home in her present condition. Case was discussed with hospitalist during morning report. Pt was seen and cooperative with interview. Pt is hard of hearing, but did have sound amplifier in her left ear and reported ability to hear this provider clearly. Pt states she is feeling "better" and was asked to explain what led to her hospitalization. Pt states "my legs." She was asked to provide additional information, and stated her legs were "weak" at home. Pt does not answer questions related to how this directly relates to her ED presentation, and instead states "Rory is coming to visit me today." Pt is able to tell this provider that her boyfriend, Rory, has suggested that she cannot safely return home - "he says he can't take care of me." Pt had delayed responses to questions about her understanding of her boyfriend's specific concerns. She did not verbalize any of the risks, and instead reiterated "I want to go home." When asked how patient would be able to ensure her safety at home, she states "I will just take my medications." She is able to verbalize that her seizure medications are important, and states "my caregivers help me with that." Pt was reminded that she is actually hospitalized as a result of having seizures at home, likely resulting from inconsistency with medications. Pt shakes her head "no" but does not answer as to why she is doing this. Pt is unable at the time of this conversation to provide any of the risks that have been discussed with her regarding why it is not recommended that she be discharged directly home from the hospital. There are several times that patient does not answer questions, but does verbalize that she is able to hear this provider speaking. This provider did explain the risks and concerns related to her returning home without adequate support and supervision. Pt verbalized understanding but could not repeat these concerns back to this provider. When the recommendation for rehab/SNF placement was reiterated, the patient nodded her head "yes" - but then said "I want to go home." Pt was encouraged to continue considering the recommendation for SNF placement, as there is reportedly a meeting this afternoon with her family to discuss her refusal of this recommended discharge plan. Pt denies history of treatment for depression or anxiety. She denies issues related to sleep or appetite. Denies present concerns related to her mood. When asked about SI/self-harm thoughts, the patient denies and states "I'm not depression or anything else like that." Pt denies other needs from our service at this time. Past Psychiatric History Current Psychiatric Diagnosis: None known Outpatient Services: None Previous Psych Admissions: None known Past Medication Trials: None known Allergies Allergy/AdvReac Type Severity Reaction Status Date / Time ceftaroline fosamil Allergy Mild ITCHING Verified 08/27/20 00:30 HANDS latex Allergy Mild Unknown Verified 08/27/20 00:30 SABINE Inhibitors Allergy Unknown Unknown Verified 08/27/20 00:30 codeine Allergy Unknown Unknown Verified 08/27/20 00:30 erythromycin base Allergy Unknown Unknown Verified 08/27/20 00:30 Iodinated Contrast Media Allergy Unknown ` Verified 08/27/20 00:30 acetaminophen Allergy Unresponsiv Verified 08/27/20 00:30 [From Tylenol-Codeine] e Iodine and Iodide Containing Allergy Unknown Verified 08/27/20 00:30 Produc morphine Allergy Unknown Verified 08/27/20 00:30 Penicillins AdvReac Mild MAKES HER Verified 08/27/20 00:30 "FUNNY IN THE HEAD" SABNIE Inhibitors Allergy Unknown Uncoded 08/27/20 00:30 Contrast Media Ready-Box MISC Allergy Unknown Uncoded 08/27/20 00:30 Erythromyci Allergy Unknown Uncoded 08/27/20 00:30 Latex Allergy Unknown Uncoded 08/27/20 00:30 Penicillins Allergy Unknown Uncoded 08/27/20 00:30 Home Medications Home Medications Medication Instructions Recorded Confirmed Type topiramate 100 mg tablet 100 mg PO QAM tab 06/26/18 08/27/20 History metformin 500 mg tablet 500 mg PO QDL 12/04/18 08/27/20 History furosemide [Lasix] 40 mg PO QAM 03/13/19 08/27/20 History levetiracetam [Keppra] 1,000 mg PO BID #60 tab 03/21/19 08/27/20 Rx metoprolol succinate [Toprol XL] 50 mg PO DAILY #30 tab 03/21/19 08/27/20 Rx spironolactone 12.5 mg PO DAILY #0 tab 03/21/19 08/27/20 Rx atorvastatin 10 mg PO DAILY 08/08/19 08/27/20 History albuterol sulfate 90 mcg/actuation 2 puffs INH QID PRN gm 01/25/20 08/27/20 History aerosol inhaler nitroglycerin 0.4 mg sublingual 0.4 mg SL Q5M PRN tab 01/25/20 08/27/20 History tablet Chewable Gummie Multivitamin 2 tab PO DAILY 08/12/20 08/27/20 History aspirin [Aspir-81] 81 mg PO DAILY 08/12/20 08/27/20 History cyanocobalamin (vitamin B-12) 1,000 mcg IM Q30D 08/12/20 08/27/20 History [Vitamin B-12] cyanocobalamin (vitamin B-12) 1,000 mcg PO DAILY 08/12/20 08/27/20 History [Vitamin B-12] ferrous sulfate 325 mg PO DAILY 08/12/20 08/27/20 History modafinil 100 mg PO DAILY 08/12/20 08/27/20 History nystatin 1 applic TOPICAL BID 08/12/20 08/27/20 History sitagliptin-metformin [Janumet] 1 tab PO BIDM 08/12/20 08/27/20 History Family History Denies known family history of mental health conditions. Substance Abuse History Denies significant alcohol or tobacco use. Denies use of illicit substances. Personal History Living Arrangements: Apartment (with significant other, Rory) Marital Status: Living w/ Signif. 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, managed as type 2 Diverticulosis DVT (deep venous thrombosis) Encephalopathy GERD (gastroesophageal reflux disease) Hyperlipidemia LDL goal <100 Left bundle branch block (LBBB) Lymphedema MSSA (methicillin susceptible Staphylococcus aureus) Obesity Rectal polyp Seizure Sleep apnea Systolic CHF Thyroid nodule Surgical History H/O sinus surgery H/O: hysterectomy Tubal ligation status Family History Father Hypertension Stroke Sister Seizure Brother Seizure Mother Leukemia Social History Smoking Status: Never smoker Second Hand Exposure: No; Preferred Language: Uzbek Communication Ability: Effective Research/Program Director Required: No marital status: Life Partner Current Living Situation: Family and Other Current Living Situation Comment: roomate/ boyfriend How many Children do You have: 4 Feels Safe at Home: Yes Assistive Devices: Mechanical Lift, Oxygen - Continuous and Wheelchair Physical Exam Psychiatric: Orientation: alert, oriented to person, oriented to place and oriented to time Participation in interview is somewhat limited - unclear if this is related to volitional behavior on the part of the patient, easy distractibility, or hearing impairment (although patient repeatedly stated she could adequately hear this provider with use of sound amplifier) Apperance: appropriately dressed, + disheveled and appeared stated age Obese-appearing female, seated in bedside chair in no acute distress. Pt has O2 nasal cannula appropriately placed. She also has a sound amplifier for use. Pt is appropriately dressed for setting, wearing a hospital gown. Overall, patient appears unkempt and level of hygiene seems less than ideal. Eye Contact: + fair eye contact (seemed distracted at times, episodes of prolonged avoidance of eye contact) Motor Behavior: no abnormal motor movements (seated in bedside chair ) Speech: + abnormal rate/rhythm/volume of speech numerous delayed responses to questions, simple and brief answers Affect: + blunted affect (appearing subdued, but not overtly depressed) Mood: no depressed mood and no anxious mood "I'm not depression or anything else like that" Thought Process: + tangential thought process and + concrete thought process Thought Content: + preoccupation (focused on returning home) Suicidal Thoughts: denies suicidal thoughts and denies suicidal intent Homicidal Thoughts: denies homicidal thoughts Cognition: language grossly intact; + recent memory not intact and + attention not intact (easily distracted, tangential at times) Estimated Intelligence: + below average estimated intelligence Insight: + limited insight Judgement: + limited judgement Vital Signs (Past 24 Hours): Last Vital Signs Temp 36.8 C 09/03/20 07:56 Pulse 78 09/03/20 07:56 Resp 20 09/03/20 07:56 BP 112/68 09/03/20 07:56 Pulse Ox 100 09/03/20 07:56 Review of Systems Constitutional: reports weakness Cardiovascular: denied Respiratory: denied Gastrointestinal: denied Neurological: denied Psychiatric: denies symptoms other than stated above Total of at least 10 systems reviewed, pertinent positives as above and in HPI. Results & Data (PSY) Medications Administered Aspirin (Aspirin 81 Mg Ectab) 81 mg PO DAILY [facility] Stop: 09/26/20 08:59 Last Admin: 09/03/20 09:13 Dose: 81 mg Documented by: [id number] Admin: 09/02/20 09:52 Dose: 81 mg Documented by: [id number] Admin: 09/01/20 08:27 Dose: 81 mg Documented by: [id number] Admin: 08/31/20 09:21 Dose: 81 mg Documented by: [id number] Admin: 08/30/20 09:27 Dose: 81 mg Documented by: [id number] Admin: 08/29/20 10:07 Dose: 81 mg Documented by: [id number] Admin: 08/28/20 09:36 Dose: Not Given Documented by: [id number] Admin: 08/27/20 10:02 Dose: 81 mg Documented by: [id number] Atorvastatin Calcium (Atorvastatin 10 Mg Tab) 10 mg PO DAILY [facility] Stop: 09/26/20 08:59 Last Admin: 09/03/20 09:12 Dose: 10 mg Documented by: [id number] Admin: 09/02/20 09:52 Dose: 10 mg Documented by: [id number] Admin: 09/01/20 08:26 Dose: 10 mg Documented by: [id number] Admin: 08/31/20 09:20 Dose: 10 mg Documented by: [id number] Admin: 08/30/20 09:26 Dose: 10 mg Documented by: [id number] Admin: 08/29/20 10:06 Dose: 10 mg Documented by: [id number] Admin: 08/28/20 09:36 Dose: Not Given Documented by: [id number] Admin: 08/27/20 10:01 Dose: 10 mg Documented by: [id number] Cephalexin HCl (Cephalexin 500 Mg Cap) 500 mg PO TID [facility]; Protocol Stop: 09/08/20 15:04 Last Admin: 09/03/20 09:13 Dose: 500 mg Documented by: [id number] Admin: 09/02/20 21:47 Dose: 500 mg Documented by: [id number] Admin: 09/02/20 13:51 Dose: 500 mg Documented by: [id number] Admin: 09/02/20 09:51 Dose: 500 mg Documented by: [id number] Admin: 09/01/20 21:25 Dose: 500 mg Documented by: [id number] Admin: 09/01/20 17:14 Dose: 500 mg Documented by: [id number] Cyanocobalamin (Cyanocobalamin 500 Mcg Tablet (Vitamin B-12)) 1,000 mcg PO DAILY [facility] Stop: 09/26/20 08:59 Last Admin: 09/03/20 09:11 Dose: 1,000 mcg Documented by: [id number] Admin: 09/02/20 09:51 Dose: 1,000 mcg Documented by: [id number] Admin: 09/01/20 08:29 Dose: 1,000 mcg Documented by: [id number] Admin: 08/31/20 09:22 Dose: 1,000 mcg Documented by: [id number] Admin: 08/30/20 09:27 Dose: 1,000 mcg Documented by: [id number] Admin: 08/29/20 10:54 Dose: Not Given Documented by: [id number] Admin: 08/28/20 09:36 Dose: Not Given Documented by: [id number] Admin: 08/27/20 10:01 Dose: 1,000 mcg Documented by: [id number] Enoxaparin Sodium (Enoxaparin Inj 40 Mg/0.4 Ml Syr) 40 mg SQ Q12 [facility] Stop: 09/26/20 08:59 Last Admin: 09/03/20 09:14 Dose: 40 mg Documented by: [id number] Admin: 09/02/20 21:48 Dose: 40 mg Documented by: [id number] Admin: 09/02/20 09:53 Dose: 40 mg Documented by: [id number] Admin: 09/01/20 21:24 Dose: 40 mg Documented by: [id number] Admin: 09/01/20 08:25 Dose: 40 mg Documented by: [id number] Admin: 08/31/20 22:04 Dose: 40 mg Documented by: [id number] Admin: 08/31/20 09:19 Dose: 40 mg Documented by: [id number] Admin: 08/30/20 22:22 Dose: 40 mg Documented by: [id number] Admin: 08/30/20 09:36 Dose: 40 mg Documented by: [id number] Admin: 08/29/20 20:47 Dose: 40 mg Documented by: [id number] Admin: 08/29/20 10:04 Dose: 40 mg Documented by: [id number] Admin: 08/28/20 20:17 Dose: 40 mg Documented by: [id number] Admin: 08/28/20 09:24 Dose: 40 mg Documented by: [id number] Admin: 08/27/20 20:32 Dose: 40 mg Documented by: [id number] Admin: 08/27/20 10:37 Dose: 40 mg Documented by: [id number] Ferrous Sulfate (Ferrous Sulfate 325 Mg Tab) 325 mg PO DAILY [facility] Stop: 09/26/20 08:59 Last Admin: 09/03/20 09:11 Dose: 325 mg Documented by: [id number] Admin: 09/02/20 09:52 Dose: 325 mg Documented by: [id number] Admin: 09/01/20 08:27 Dose: 325 mg Documented by: [id number] Admin: 08/31/20 09:25 Dose: 325 mg Documented by: [id number] Admin: 08/30/20 09:26 Dose: 325 mg Documented by: [id number] Admin: 08/29/20 10:54 Dose: Not Given Documented by: [id number] Admin: 08/28/20 09:36 Dose: Not Given Documented by: [id number] Admin: 08/27/20 10:02 Dose: 325 mg Documented by: [id number] Furosemide (Furosemide 40 Mg Tab) 40 mg PO QAM [facility] Stop: 09/26/20 08:59 Last Admin: 09/03/20 09:12 Dose: 40 mg Documented by: [id number] Admin: 09/02/20 09:52 Dose: 40 mg Documented by: [id number] Admin: 09/01/20 08:29 Dose: 40 mg Documented by: [id number] Admin: 08/31/20 09:22 Dose: 40 mg Documented by: [id number] Admin: 08/30/20 09:26 Dose: 40 mg Documented by: [id number] Admin: 08/29/20 10:06 Dose: 40 mg Documented by: [id number] Admin: 08/28/20 09:36 Dose: Not Given Documented by: [id number] Admin: 08/27/20 10:02 Dose: 40 mg Documented by: [id number] Insulin Aspart (Insulin Aspart 100 Units/Ml 3 Ml Pen) 0 units SC ACHS [facility] Stop: 09/26/20 07:29 Last Admin: 09/03/20 09:15 Dose: 3 units Documented by: [id number] Cosigned by: [id number] Admin: 09/02/20 21:49 Dose: 2 units Documented by: [id number] Cosigned by: [id number] Admin: 09/02/20 17:18 Dose: 3 units Documented by: [id number] Cosigned by: [id number] Admin: 09/02/20 12:37 Dose: 3 units Documented by: [id number] Cosigned by: [id number] Admin: 09/02/20 09:53 Dose: 3 units Documented by: [id number] Cosigned by: [id number] Admin: 09/01/20 21:26 Dose: 1 units Documented by: [id number] Cosigned by: [id number] Admin: 09/01/20 17:14 Dose: 2 units Documented by: [id number] Cosigned by: [id number] Admin: 09/01/20 12:20 Dose: 3 units Documented by: [id number] Cosigned by: [id number] Admin: 09/01/20 08:31 Dose: 3 units Documented by: [id number] Cosigned by: [id number] Admin: 08/31/20 22:05 Dose: 1 units Documented by: [id number] Cosigned by: [id number] Admin: 08/31/20 17:49 Dose: 2 units Documented by: [id number] Cosigned by: [id number] Admin: 08/31/20 12:48 Dose: 2 units Documented by: [id number] Cosigned by: [id number] Admin: 08/31/20 09:24 Dose: 2 units Documented by: [id number] Cosigned by: [id number] Admin: 08/30/20 21:20 Dose: Not Given Documented by: [id number] Cosigned by: [id number] Admin: 08/30/20 17:16 Dose: 1 units Documented by: [id number] Cosigned by: [id number] Admin: 08/30/20 12:40 Dose: 4 units Documented by: [id number] Cosigned by: [id number] Admin: 08/30/20 09:32 Dose: 1 units Documented by: [id number] Cosigned by: [id number] Admin: 08/29/20 20:46 Dose: 1 units Documented by: [id number] Cosigned by: [id number] Admin: 08/29/20 17:15 Dose: Not Given Documented by: [id number] Cosigned by: [id number] Admin: 08/29/20 12:26 Dose: Not Given Documented by: [id number] Cosigned by: [id number] Admin: 08/29/20 09:56 Dose: Not Given Documented by: [id number] Cosigned by: [id number] Admin: 08/28/20 20:21 Dose: Not Given Documented by: [id number] Cosigned by: [id number] Admin: 08/28/20 17:29 Dose: Not Given Documented by: [id number] Cosigned by: [id number] Admin: 08/28/20 12:18 Dose: Not Given Documented by: [id number] Cosigned by: [id number] Admin: 08/28/20 09:03 Dose: Not Given Documented by: [id number] Cosigned by: [id number] Admin: 08/27/20 21:16 Dose: Not Given Documented by: [id number] Cosigned by: [id number] Admin: 08/27/20 17:20 Dose: Not Given Documented by: [id number] Cosigned by: [id number] Admin: 08/27/20 12:35 Dose: 3 units Documented by: [id number] Cosigned by: [id number] Admin: 08/27/20 08:02 Dose: 2 units Documented by: [id number] Cosigned by: [id number] Insulin Glargine (Insulin Glargine Solostar 100 Units/Ml 3 Ml Pen) 7 units SC BID [facility] Stop: 09/26/20 08:59 Last Admin: 09/03/20 09:15 Dose: 7 units Documented by: [id number] Cosigned by: [id number] Admin: 09/02/20 21:49 Dose: 7 units Documented by: [id number] Cosigned by: [id number] Admin: 09/02/20 09:51 Dose: 7 units Documented by: [id number] Cosigned by: [id number] Admin: 09/01/20 21:27 Dose: 7 units Documented by: [id number] Cosigned by: [id number] Admin: 09/01/20 08:30 Dose: 7 units Documented by: [id number] Cosigned by: [id number] Admin: 08/31/20 22:04 Dose: 7 units Documented by: [id number] Cosigned by: [id number] Admin: 08/31/20 09:24 Dose: 7 units Documented by: [id number] Cosigned by: [id number] Admin: 08/30/20 22:22 Dose: 7 units Documented by: [id number] Cosigned by: [id number] Admin: 08/30/20 09:29 Dose: 7 units Documented by: [id number] Cosigned by: [id number] Admin: 08/29/20 20:47 Dose: 7 units Documented by: [id number] Cosigned by: [id number] Admin: 08/29/20 10:05 Dose: 7 units Documented by: [id number] Cosigned by: [id number] Admin: 08/28/20 20:21 Dose: 7 units Documented by: [id number] Cosigned by: [id number] Admin: 08/28/20 09:05 Dose: 7 units Documented by: [id number] Cosigned by: [id number] Admin: 08/27/20 20:32 Dose: 7 units Documented by: [id number] Cosigned by: [id number] Admin: 08/27/20 10:03 Dose: 7 units Documented by: [id number] Cosigned by: [id number] Levetiracetam (Levetiracetam 500 Mg Tab) 1,000 mg PO BID [facility] Stop: 09/26/20 08:59 Last Admin: 09/03/20 09:12 Dose: 1,000 mg Documented by: [id number] Admin: 09/02/20 21:47 Dose: 1,000 mg Documented by: [id number] Admin: 09/02/20 09:52 Dose: 1,000 mg Documented by: [id number] Admin: 09/01/20 21:25 Dose: 1,000 mg Documented by: [id number] Admin: 09/01/20 08:26 Dose: 1,000 mg Documented by: [id number] Admin: 08/31/20 22:04 Dose: 1,000 mg Documented by: [id number] Admin: 08/31/20 09:20 Dose: 1,000 mg Documented by: [id number] Admin: 08/30/20 22:22 Dose: 1,000 mg Documented by: [id number] Admin: 08/30/20 09:25 Dose: 1,000 mg Documented by: [id number] Admin: 08/29/20 20:46 Dose: 1,000 mg Documented by: [id number] Admin: 08/29/20 10:38 Dose: 1,000 mg Documented by: [id number] Admin: 08/28/20 20:17 Dose: 1,000 mg Documented by: [id number] Admin: 08/28/20 09:07 Dose: 500 mg Documented by: [id number] Admin: 08/27/20 20:32 Dose: 1,000 mg Documented by: [id number] Admin: 08/27/20 10:02 Dose: 1,000 mg Documented by: [id number] Metoprolol Succinate (Metoprolol Succ 50mg Ext Rel Tab) 50 mg PO DAILY [facility] Stop: 09/26/20 08:59 Last Admin: 09/03/20 09:12 Dose: 50 mg Documented by: [id number] Admin: 09/02/20 09:52 Dose: 50 mg Documented by: [id number] Admin: 09/01/20 08:27 Dose: 50 mg Documented by: [id number] Admin: 08/31/20 09:22 Dose: 50 mg Documented by: [id number] Admin: 08/30/20 09:26 Dose: 50 mg Documented by: [id number] Admin: 08/29/20 10:07 Dose: 50 mg Documented by: [id number] Admin: 08/28/20 09:36 Dose: Not Given Documented by: [id number] Admin: 08/27/20 10:02 Dose: 50 mg Documented by: [id number] Modafinil (Modafinil 100 Mg Tab) 100 mg PO DAILY [facility] Stop: 09/26/20 08:59 Last Admin: 09/03/20 09:11 Dose: 100 mg Documented by: [id number] Admin: 09/02/20 09:52 Dose: 100 mg Documented by: [id number] Admin: 09/01/20 08:37 Dose: 100 mg Documented by: [id number] Admin: 08/31/20 09:57 Dose: 100 mg Documented by: [id number] Admin: 08/30/20 09:25 Dose: 100 mg Documented by: [id number] Admin: 08/29/20 10:21 Dose: 100 mg Documented by: [id number] Admin: 08/28/20 09:36 Dose: Not Given Documented by: [id number] Admin: 08/27/20 10:37 Dose: 100 mg Documented by: [id number] Multi-Ingredient Cream (Eucerin Cr 120 Gm Jar) 1 appln EXT BID PRN PRN Reason: Dryness Stop: 10/01/20 15:38 Last Admin: 09/03/20 09:16 Dose: 1 appln Documented by: [id number] Admin: 09/02/20 21:48 Dose: 1 appln Documented by: [id number] Admin: 09/02/20 09:52 Dose: 1 appln Documented by: [id number] Admin: 09/01/20 17:16 Dose: 1 appln Documented by: [id number] Nystatin (Nystatin Powder 15gm Btl) 1 appln EXT BID [facility] Stop: 09/26/20 08:59 Last Admin: 09/03/20 09:16 Dose: 1 appln Documented by: [id number] Admin: 09/02/20 21:48 Dose: 1 appln Documented by: [id number] Admin: 09/02/20 09:53 Dose: 1 appln Documented by: [id number] Admin: 09/01/20 21:27 Dose: 1 appln Documented by: [id number] Admin: 09/01/20 08:29 Dose: 1 appln Documented by: [id number] Admin: 08/31/20 22:06 Dose: 1 appln Documented by: [id number] Admin: 08/31/20 09:30 Dose: 1 appln Documented by: [id number] Admin: 08/30/20 22:23 Dose: 1 appln Documented by: [id number] Admin: 08/30/20 09:27 Dose: 1 appln Documented by: [id number] Admin: 08/29/20 20:57 Dose: 1 appln Documented by: [id number] Admin: 08/29/20 10:08 Dose: 1 appln Documented by: [id number] Admin: 08/28/20 20:23 Dose: 1 appln Documented by: [id number] Admin: 08/28/20 09:36 Dose: Not Given Documented by: [id number] Admin: 08/27/20 20:32 Dose: 1 appln Documented by: [id number] Admin: 08/27/20 10:03 Dose: 1 appln Documented by: [id number] Spironolactone (Spironolactone 12.5 Mg Tab) 12.5 mg PO DAILY [facility] Stop: 09/26/20 08:59 Last Admin: 09/03/20 09:13 Dose: 12.5 mg Documented by: [id number] Admin: 09/02/20 09:51 Dose: 12.5 mg Documented by: [id number] Admin: 09/01/20 08:27 Dose: 12.5 mg Documented by: [id number] Admin: 08/31/20 09:20 Dose: 12.5 mg Documented by: [id number] Admin: 08/30/20 09:27 Dose: 12.5 mg Documented by: [id number] Admin: 08/29/20 10:07 Dose: 12.5 mg Documented by: [id number] Admin: 08/28/20 09:36 Dose: Not Given Documented by: [id number] Admin: 08/27/20 10:02 Dose: 12.5 mg Documented by: [id number] Topiramate (Topiramate 100 Mg Tab) 100 mg PO QAM MIGUEL Stop: 09/26/20 08:59 Last Admin: 09/03/20 09:13 Dose: 100 mg Documented by: [id number] Admin: 09/02/20 09:52 Dose: 100 mg Documented by: [id number] Admin: 09/01/20 08:26 Dose: 100 mg Documented by: [id number] Admin: 08/31/20 09:21 Dose: 100 mg Documented by: [id number] Admin: 08/30/20 09:27 Dose: 100 mg Documented by: [id number] Admin: 08/29/20 10:08 Dose: 100 mg Documented by: [id number] Admin: 08/28/20 09:07 Dose: 100 mg Documented by: [id number] Admin: 08/27/20 10:02 Dose: 100 mg Documented by: [id number] Coding Level of Care Code 89245 [facility] Intl Hosp Care Lvl 2
--- NOTE | 2020-09-03 16:52 | Ultrasound Report ---
BILATERAL LOWER EXTREMITY VENOUS DOPPLER HISTORY: bed-bound status, b/l leg pain, edema COMPARISON STUDY: None. FINDINGS: There is normal compressibility, flow, and augmentation within the bilateral lower extremit y deep venous systems. IMPRESSION: No DVT within the right or left lower extremity. ACT 112: Negative or not required by law. Electronically signed by: Laurent Caballero M.D. 09/03/2020 4:50 PM
--- NOTE | 2020-09-03 16:58 | XRay Report ---
LEFT KNEE 2 VIEWS CLINICAL HISTORY: Left knee pain. FINDINGS: AP and crosstable lateral views of left knee are compared to study dated 09/05/2006. The ske letal structures are osteopenic. No fracture is seen. There is advanced degenerative narrowing in the medial compartment with near-complete loss of the joint space, bony sclerosis, subchondral cyst form ation, and large marginal osteophytes. Moderate narrowing seen at the patellofemoral articulation, an d there is mild narrowing in the lateral compartment. There is a small joint effusion. Mild soft tiss ue edema is present around the knee. IMPRESSION: 1. Soft tissue swelling and small joint effusion with no acute bony abnormality identified. 2. Osteopenia and degenerative change as above, greatest in medial compartment. Electronically signed by: Nick Dumont M.D. 09/03/2020 4:57 PM
[2020-09-03] MEDS: DICLOFENAC SOD 1% GEL 100 GM TUBE EXT SCH ×2 (17:48→21:39)
--- NOTE | 2020-09-03 20:30 | Hospitalist Progress Note ---
Date of Service September 03, 2020 Assessment & Plan (1) Seizure: By report patient with witnessed seizure in ER. Suspect medication noncompliance. No recurrent seizures since admission. Keppra level returned undetectable suggesting noncompliance with AEDs. Keppra and topamax dosing kept the same. (2) Asthma: Chronic. No exacerbation at this time. (3) Diabetes mellitus, type II: HbA1C 7.6%. holding oral agents. lantus/novolog while here. control remains acceptable. (4) Hypertension: cont home meds (5) Venous stasis ulcers of both lower extremities: resolved. just severe stasis changes at this time. (6) Chronic respiratory failure with hypoxia: stable on home O2 amount - 2 L continuously. Obesity-hypoventilation syndrome and/or asthma suspected - favor former. (7) Cellulitis and abscess of leg: admitting physician felt she had LLE cellulitis. if indeed present it is improved/resolved. finish course of PO keflex TID - perhaps 2-3 more days. (8) Hearing impaired: severe (9) Morbid obesity with BMI of 40.0-44.9, adult: BMI 41 (10) Ambulatory dysfunction: severe. does not walk at home. uses power chair. needs rehab. boyfriend w/ whom she lives and 2 sons ALL IN AGREEMENT about rehab after d/c. (11) Intellectual disability: I am suspicious she has, at least, mild ID. She is dysmorphic appearing, does not seem to understand why returning home is not safe, lays in stool/urine and does not tell staff, etc. Would need IQ testing for diagnosing ID. Apparently finished high school. Seen by psych - they agree she lacks capacity at this time. Needs healthcare POA - one of her children?? (12) Knee pain, bilateral: OA? CPPD? other? the left knee is worse -- x-rays. voltaren gel qid left knee. (13) Leg pain, bilateral: hyperalgesic on exam. cause?? will obtain dopplers of both legs, r/o DVT, given her bed-bound/wheelchair-bound status. (14) DVT prophylaxis: lovenox BID family updated at bedside today care d/w psych care d/w case management Admission and Anticipated Discharge Date Admission Date: August 27, 2020 Subjective family came to see patient today. 2 sons, boyfriend, and step-mother. sons and boyfriend agreed that patient cannot come home and rehab is needed. during the visit patient was initially focused on having a "pizza democrat" and was in fact counting money when I arrived. she said she was going to order pizza to the room. then, while examining her, I asker her about the LLE pain. she immediately started to shout/scream if I touched her left lower leg even slightly or tried to move either leg. family reported she hadn't had any complaints since they had come to see her. Review of Systems Constitutional: no anorexia Respiratory: no cough and no dyspnea Cardiovascular: no chest pain Gastrointestinal: no abdominal pain Physical Exam Constitutional: + acute distress (B/l leg pain worse on left ) and + morbidly obese ENMT: external ear and nose normal, oropharynx normal Respiratory: normal respiratory effort, lungs clear to auscultation Cardiovascular: Rate/Rhythm: regular rate and regular rhythm Heart Sounds: normal S1 and normal S2; no murmur Vessels: posterior tibial pulses present and dorsalis pedis pulses present; no JVD Extremities: + edema (<1+ b/l ) Gastrointestinal (Abdomen): normal bowel sounds, soft, nontender, no hepatosplenomegaly Inspection/Auscultation: + abdomen distended (Mild) Musculoskeletal: OA changes b/l knees. No warmth or bogginess. Scant effusion left knee. Passive ROM of either knee leads to exquisite pain. Just touching the thigh or lyles b/l leads to exquisite pain (??). Psychiatric: Orientation: alert, oriented to person and oriented to place Results & Data Results & Data ([facility]) Vital Signs (Past 12 Hours) Vital Signs Temp Pulse Pulse Resp BP Pulse Ox 09/03/20 19:15 37.1 C 86 16 123/73 97 09/03/20 16:45 93 H 09/03/20 11:50 36.9 C 78 20 112/75 99 Laboratory Results Laboratory Results - last 24 hr 09/03/20 09/03/20 09/03/20 07:07 07:36 11:42 Creatinine 0.83 Est Cr Clr Drug Dosing 69.8 Est GFR ( Amer) 87.6 Est GFR (Non-Af Amer) 75.6 POC Glucose 126 H 167 H 09/03/20 17:12 Creatinine Est Cr Clr Drug Dosing Est GFR ( Amer) Est GFR (Non-Af Amer) POC Glucose 209 H PG Care Time/CCT Total # of Minutes Spent Total Time Spent with Patient: Total time spent is greater than 50% in coordination of care (as documented) at patient's floor/unit and/or counseling patient: Coding Level of Care Code 35126 Subseq Hosp Care Lvl 3 Diagnoses Seizure R56.9 Asthma J45.909 Asthma complication type: unspecified Asthma persistence: unspecified Asthma severity: unspecified severity Diabetes mellitus, type II E11.9 Diabetes mellitus complication status: without complication Diabetes mellitus detention insulin use: without director long term care use Hypertension I10 Hypertension type: essential hypertension Venous stasis ulcers of both lower extremities I83.019; I83.029; L97.919; L97.929 Chronic respiratory failure with hypoxia J96.11 Cellulitis and abscess of leg L03.119; L02.419 Hearing impaired H91.93 Hearing loss type: unspecified Laterality: bilateral Morbid obesity with BMI of 40.0-44.9, adult E66.01; Z68.41 Ambulatory dysfunction R26.2 Intellectual disability F79 Knee pain, bilateral M25.561; M25.562 Leg pain, bilateral M79.604; M79.605 DVT prophylaxis Z29.9 (1) Hearing impaired Hearing loss type: unspecified Laterality: bilateral Qualified Code(s): H91.93 - Unspecified hearing loss, bilateral (2) Diabetes mellitus, type II Diabetes mellitus complication status: without complication Diabetes mellitus director long term care insulin use: without director long term care use Qualified Code(s): E11.9 - Type 2 diabetes mellitus without complications (3) Hypertension Hypertension type: essential hypertension Qualified Code(s): I10 - Essential (primary) hypertension (4) Asthma Asthma complication type: unspecified Asthma persistence: unspecified Asthma severity: unspecified severity Qualified Code(s): J45.909 - Unspecified asthma, uncomplicated
[2020-09-04 08:20] LABS: Hematocrit (blood only) 41.9 % (37-47); Hemoglobin 12.2 g/dL (12.0-16.0); Mean Corpuscular Hemoglobin 26.8 pg (25-34); Mean Corpuscular Hgb Conc 29.1 g/dL (32-36); Mean Corpuscular Volume 92.1 fL (80-100); Platelet Count 175 K/uL (130-400); RDW Coefficient of Variation 14.8 % (11.5-14.5); RDW Standard Deviation 49.9 fL (36.4-46.3); Red Blood Count 4.55 M/uL (4.2-5.4); White Blood Count 4.01 K/uL (4.8-10.8)
[2020-09-04] MEDS: NYSTATIN POWDER 15GM BTL EXT SCH ×2 (08:46→21:11)
[2020-09-04] MEDS: DICLOFENAC SOD 1% GEL 100 GM TUBE EXT SCH ×4 (08:47→21:13)
[2020-09-04] MEDS: ENOXAPARIN INJ 40 MG/0.4 ML SYR SQ SCH ×2 (08:47→21:11)
[2020-09-04] MEDS: EUCERIN CR 120 GM JAR EXT PRN (08:47)
[2020-09-04 08:48] LABS: BUN Creatinine Ratio 27.8 (10-20); Calcium 9.3 mg/dl (8.5-10.1); Creatinine Clr Calc Pharmacy 67.3 ml/min; Est GFR (African American) 82.8; Est GFR (Non-African American) 71.4; Potassium 3.8 mmol/L (3.5-5.1)
[2020-09-04] MEDS: modafiniL 100 MG TAB PO SCH (08:48)
[2020-09-04] MEDS: levETIRAcetam 500 MG TAB PO SCH ×2 (08:48→21:10)
[2020-09-04] MEDS: ASPIRIN 81 MG ECTAB PO SCH (08:48)
[2020-09-04] MEDS: SPIRONOLACTONE 12.5 MG TAB PO SCH (08:49)
[2020-09-04] MEDS: cephALEXin 500 MG CAP PO SCH ×3 (08:49→21:09)
[2020-09-04] MEDS: FERROUS SULFATE 325 MG TAB PO SCH (08:49)
[2020-09-04] MEDS: ATORVASTATIN 10 MG TAB PO SCH (08:50)
[2020-09-04] MEDS: METOPROLOL SUCC 50MG EXT REL TAB PO SCH (08:50)
[2020-09-04] MEDS: TOPIRAMATE 100 MG TAB PO SCH (08:50)
[2020-09-04] MEDS: FUROSEMIDE 40 MG TAB PO SCH (08:51)
[2020-09-04] MEDS: CYANOCOBALAMIN 500 MCG TABLET (VITAMIN B-12) PO SCH (08:51)
[2020-09-04] MEDS: INSULIN GLARGINE SOLOSTAR 100 UNITS/ML 3 ML PEN SC SCH ×2 (08:52→21:10)
[2020-09-04] MEDS: INSULIN ASPART 100 UNITS/ML 3 ML PEN SC SCH ×4 (08:53→21:12)
--- NOTE | 2020-09-04 19:43 | Hospitalist Progress Note ---
Date of Service September 04, 2020 Assessment & Plan (1) Seizure: Witnessed seizure in ER. Suspect medication noncompliance. No recurrent seizures since admission. Keppra level returned undetectable suggesting noncompliance with AEDs. Keppra and topamax dosing kept the same. Cont seizure precautions. (2) Asthma: Chronic. No exacerbation at this time. (3) Diabetes mellitus, type II: HbA1C 7.6%. holding oral agents. lantus/novolog while here. control remains acceptable. (4) Hypertension: cont home meds controlled (5) Venous stasis ulcers of both lower extremities: resolved. just severe stasis changes at this time. (6) Chronic respiratory failure with hypoxia: stable on home O2 amount - 2 L continuously. Obesity-hypoventilation syndrome likely culprit for O2 requirement. (7) Cellulitis and abscess of leg: admitting physician felt she had LLE cellulitis. if indeed present it is improved/resolved. finish course of PO keflex TID - 7 days in total. (8) Hearing impaired: severe (9) Morbid obesity with BMI of 40.0-44.9, adult: BMI 41 (10) Ambulatory dysfunction: severe. does not walk at home. uses power chair. needs rehab. boyfriend w/ whom she lives and 2 sons ALL IN AGREEMENT about rehab after d/c. (11) Intellectual disability: I am suspicious she has, at least, mild ID. She is dysmorphic appearing, does not seem to understand why returning home is not safe, lays in stool/urine and does not tell staff, etc. Would need IQ testing for diagnosing ID. Apparently finished high school. Seen by psych - they agree she lacks capacity at this time. Needs healthcare POA - one of her children would hopefully act on her behalf. (12) Knee pain, bilateral: OA. voltaren gel qid. (13) Leg pain, bilateral: dopplers neg for DVT. pain improved today. (14) DVT prophylaxis: lovenox BID family updated at bedside yesterday dispo - SNF Admission and Anticipated Discharge Date Admission Date: August 27, 2020 Subjective no issues overnight. was in very good mood today. smiling. no complaints. leg and knee pains better today. tele normal today. at conclusion of visit, however, she stated "I don't want to go to the skilled nursing!" Review of Systems Respiratory: no dyspnea Cardiovascular: no chest pain Gastrointestinal: no abdominal pain Musculoskeletal: no joint pain Physical Exam Constitutional: + morbidly obese; no acute distress and no altered mental status ENMT: external ear and nose normal, oropharynx normal Respiratory: normal respiratory effort, lungs clear to auscultation Cardiovascular: Rate/Rhythm: regular rate and regular rhythm Heart Sounds: normal S1 and normal S2; no murmur Vessels: posterior tibial pulses present and dorsalis pedis pulses present; no JVD Extremities: + edema (<1+ b/l ) Gastrointestinal (Abdomen): normal bowel sounds, soft, nontender, no hepatosplenomegaly Skin: stasis changes b/l legs - no open ulcerations Psychiatric: Orientation: alert, oriented to person and oriented to place Results & Data Results & [facility] ([facility]) Vital Signs (Past 12 Hours) Vital Signs Temp Pulse Pulse Resp BP BP Pulse Ox 09/04/20 16:00 79 09/04/20 15:08 37.1 C 79 18 103/69 98 09/04/20 11:49 37.1 C 78 18 107/69 94 Laboratory Results Laboratory Results - last 24 hr 09/03/20 09/04/20 09/04/20 20:31 07:46 07:46 WBC 4.01 L RBC 4.55 Hgb 12.2 Hct 41.9 MCV 92.1 MCH 26.8 MCHC 29.1 L RDW Std Deviation 49.9 H RDW Coeff of Ewa 14.8 H Plt Count 175 MPV 11.0 H Sodium 141 Potassium 3.8 Chloride 99 Carbon Dioxide 40 H Anion Gap 3.0 BUN 24 H Creatinine 0.87 Est Cr Clr Drug Dosing 67.3 Est GFR ( Amer) 82.8 Est GFR (Non-Af Amer) 71.4 BUN/Creatinine Ratio 27.8 H Glucose 132 H POC Glucose 173 H Calcium 9.3 Vitamin B12 09/04/20 09/04/20 09/04/20 07:46 07:48 11:58 WBC RBC Hgb Hct MCV MCH MCHC RDW Std Deviation RDW Coeff of Ewa Plt Count MPV Sodium Potassium Chloride Carbon Dioxide Anion Gap BUN Creatinine Est Cr Clr Drug Dosing Est GFR ( Amer) Est GFR (Non-Af Amer) BUN/Creatinine Ratio Glucose POC Glucose 140 H 142 H Calcium Vitamin B12 716 09/04/20 16:47 WBC RBC Hgb Hct MCV MCH MCHC RDW Std Deviation RDW Coeff of Ewa Plt Count MPV Sodium Potassium Chloride Carbon Dioxide Anion Gap BUN Creatinine Est Cr Clr Drug Dosing Est GFR ( Amer) Est GFR (Non-Af Amer) BUN/Creatinine Ratio Glucose POC Glucose 147 H Calcium Vitamin B12 PG Care Time/CCT Total # of Minutes Spent Total Time Spent with Patient: Total time spent is greater than 50% in coordination of care (as documented) at patient's floor/unit and/or counseling patient: Coding Level of Care Code 82393 Subseq Hosp Care Lvl 2 Diagnoses Seizure R56.9 Asthma J45.909 Asthma complication type: unspecified Asthma persistence: unspecified Asthma severity: unspecified severity Diabetes mellitus, type II E11.9 Diabetes mellitus complication status: without complication Diabetes mellitus jail insulin use: without marine oil terminal superintendent use Hypertension I10 Hypertension type: essential hypertension Venous stasis ulcers of both lower extremities I83.019; I83.029; L97.919; L97.929 Chronic respiratory failure with hypoxia J96.11 Cellulitis and abscess of leg L03.119; L02.419 Hearing impaired H91.93 Hearing loss type: unspecified Laterality: bilateral Morbid obesity with BMI of 40.0-44.9, adult E66.01; Z68.41 Ambulatory dysfunction R26.2 Intellectual disability F79 Knee pain, bilateral M25.561; M25.562 Chronicity: unspecified Leg pain, bilateral M79.604; M79.605 DVT prophylaxis Z29.9 (1) Hearing impaired Hearing loss type: unspecified Laterality: bilateral Qualified Code(s): H91.93 - Unspecified hearing loss, bilateral (2) Diabetes mellitus, type II Diabetes mellitus complication status: without complication Diabetes mellitus jail insulin use: without jail use Qualified Code(s): E11.9 - Type 2 diabetes mellitus without complications (3) Knee pain, bilateral Chronicity: unspecified Qualified Code(s): M25.561 - Pain in right knee; M25.562 - Pain in left knee (4) Hypertension Hypertension type: essential hypertension Qualified Code(s): I10 - Essential (primary) hypertension (5) Asthma Asthma complication type: unspecified Asthma persistence: unspecified Asthma severity: unspecified severity Qualified Code(s): J45.909 - Unspecified asthma, uncomplicated
[2020-09-05 08:28] LABS: Creatinine Clr Calc Pharmacy 63.9 ml/min; Est GFR (African American) 78.4; Est GFR (Non-African American) 67.6
[2020-09-05] MEDS: ASPIRIN 81 MG ECTAB PO SCH (08:55)
[2020-09-05] MEDS: CYANOCOBALAMIN 500 MCG TABLET (VITAMIN B-12) PO SCH (08:56)
[2020-09-05] MEDS: METOPROLOL SUCC 50MG EXT REL TAB PO SCH (08:56)
[2020-09-05] MEDS: SPIRONOLACTONE 12.5 MG TAB PO SCH (08:56)
[2020-09-05] MEDS: ATORVASTATIN 10 MG TAB PO SCH (08:56)
[2020-09-05] MEDS: FUROSEMIDE 40 MG TAB PO SCH (08:56)
[2020-09-05] MEDS: FERROUS SULFATE 325 MG TAB PO SCH (08:57)
[2020-09-05] MEDS: ENOXAPARIN INJ 40 MG/0.4 ML SYR SQ SCH ×2 (08:57→21:40)
[2020-09-05] MEDS: TOPIRAMATE 100 MG TAB PO SCH (08:57)
[2020-09-05] MEDS: cephALEXin 500 MG CAP PO SCH ×3 (08:57→21:41)
[2020-09-05] MEDS: DICLOFENAC SOD 1% GEL 100 GM TUBE EXT SCH ×4 (08:58→21:41)
[2020-09-05] MEDS: EUCERIN CR 120 GM JAR EXT PRN (08:58)
[2020-09-05] MEDS: INSULIN ASPART 100 UNITS/ML 3 ML PEN SC SCH ×4 (08:59→21:38)
[2020-09-05] MEDS: NYSTATIN POWDER 15GM BTL EXT SCH ×2 (08:59→21:42)
[2020-09-05] MEDS: levETIRAcetam 500 MG TAB PO SCH ×2 (08:59→21:39)
[2020-09-05] MEDS: INSULIN GLARGINE SOLOSTAR 100 UNITS/ML 3 ML PEN SC SCH ×2 (09:01→21:39)
[2020-09-05] MEDS: modafiniL 100 MG TAB PO SCH (09:14)
--- NOTE | 2020-09-05 22:40 | Hospitalist Progress Note ---
Date of Service September 05, 2020 Assessment & Plan (1) Seizure: Witnessed seizure in ER at time of admission. Suspected medication noncompliance as cause. No recurrent seizures since admission. Keppra level returned undetectable c/w noncompliance with AEDs. Keppra and topamax dosing kept the same. Cont seizure precautions. (2) Asthma: Chronic. No issues. (3) Diabetes mellitus, type II: HbA1C 7.6%. holding oral agents. lantus/novolog while here. BSGs starting to rise -- adjust novolog. (4) Hypertension: cont home meds controlled (5) Venous stasis ulcers of both lower extremities: resolved. just severe stasis changes at this time. (6) Chronic respiratory failure with hypoxia: stable on home O2 amount - 2 L continuously. Obesity-hypoventilation syndrome likely culprit for O2 requirement. (7) Cellulitis and abscess of leg: resolved. LLE. has received nearly 10 days of Rx - stop keflex today. (8) Hearing impaired: severe (9) Morbid obesity with BMI of 40.0-44.9, adult: BMI 41 (10) Ambulatory dysfunction: severe. does not walk at home. uses power chair. needs rehab. boyfriend w/ whom she lives and 2 sons ALL IN AGREEMENT that she is not safe to return home at discharge. (11) Intellectual disability: I am suspicious she has, at least, mild ID. She is dysmorphic appearing, does not seem to understand why returning home is not safe, lays in stool/urine and does not tell staff, etc. Would need IQ testing for diagnosing ID. Seen by psych - they agree she lacks capacity at this time. Needs healthcare POA - one of her children would hopefully act on her behalf. (12) Knee pain, bilateral: OA. Improved pain today with voltaren gel qid. (13) Leg pain, bilateral: dopplers neg for DVT. no c/o pain today. (14) DVT prophylaxis: lovenox BID dispo - [facility] likely next week OOA involved Admission and Anticipated Discharge Date Admission Date: August 27, 2020 Subjective no issues overnight. she feels well. continues to eat well. doing better with her PT/OT sessions. tele with brief run of a.tach. Review of Systems Respiratory: no cough and no dyspnea Cardiovascular: no chest pain Gastrointestinal: no abdominal pain, no nausea and no vomiting Physical Exam Constitutional: + morbidly obese; no acute distress and no altered mental status ENMT: external ear and nose normal, oropharynx normal Respiratory: normal respiratory effort, lungs clear to auscultation Cardiovascular: Rate/Rhythm: regular rate and regular rhythm Heart Sounds: normal S1 and normal S2; no murmur Vessels: posterior tibial pulses present and dorsalis pedis pulses present; no JVD Extremities: + edema (<1+ b/l ) Gastrointestinal (Abdomen): normal bowel sounds, soft, nontender, no hepatosplenomegaly Inspection/Auscultation: + abdomen distended (Mild) Skin: severe stasis changes b/l - no change; no cellulitis Psychiatric: Orientation: alert, oriented to person and oriented to place Results & Data Results & Data ([facility]) Vital Signs (Past 12 Hours) Vital Signs Temp Pulse Pulse Resp BP BP Pulse Ox 09/05/20 19:00 37.4 C 82 18 98/60 L 96 09/05/20 15:38 75 09/05/20 11:52 36.9 C 72 20 112/73 94 Laboratory Results Laboratory Results - last 24 hr 09/05/20 09/05/20 09/05/20 07:30 07:43 11:52 Creatinine 0.91 Est Cr Clr Drug Dosing 63.9 Est GFR ( Amer) 78.4 Est GFR (Non-Af Amer) 67.6 POC Glucose 148 H 150 H 09/05/20 09/05/20 16:45 20:00 Creatinine Est Cr Clr Drug Dosing Est GFR ( Amer) Est GFR (Non-Af Amer) POC Glucose 211 H 292 H PG Care Time/CCT Total # of Minutes Spent Total Time Spent with Patient: Total time spent is greater than 50% in coordination of care (as documented) at patient's floor/unit and/or counseling patient: Coding Level of Care Code 06721 Subseq Hosp Care Lvl 2 Diagnoses Seizure R56.9 Asthma J45.909 Asthma complication type: unspecified Asthma persistence: unspecified Asthma severity: unspecified severity Diabetes mellitus, type II E11.9 Diabetes mellitus complication status: without complication Diabetes mellitus supervisor intermediates insulin use: without supervisor intermediates use Hypertension I10 Hypertension type: essential hypertension Venous stasis ulcers of both lower extremities I83.019; I83.029; L97.919; L97.929 Chronic respiratory failure with hypoxia J96.11 Cellulitis and abscess of leg L03.119; L02.419 Hearing impaired H91.93 Hearing loss type: unspecified Laterality: bilateral Morbid obesity with BMI of 40.0-44.9, adult E66.01; Z68.41 Ambulatory dysfunction R26.2 Intellectual disability F79 Knee pain, bilateral M25.561; M25.562 Chronicity: unspecified Leg pain, bilateral M79.604; M79.605 DVT prophylaxis Z29.9 (1) Hearing impaired Hearing loss type: unspecified Laterality: bilateral Qualified Code(s): H91.93 - Unspecified hearing loss, bilateral (2) Diabetes mellitus, type II Diabetes mellitus complication status: without complication Diabetes mellitus supervisor intermediates insulin use: without nursing home use Qualified Code(s): E11.9 - Type 2 diabetes mellitus without complications (3) Knee pain, bilateral Chronicity: unspecified Qualified Code(s): M25.561 - Pain in right knee; M25.562 - Pain in left knee (4) Hypertension Hypertension type: essential hypertension Qualified Code(s): I10 - Essential (primary) hypertension (5) Asthma Asthma complication type: unspecified Asthma persistence: unspecified Asthma severity: unspecified severity Qualified Code(s): J45.909 - Unspecified asthma, uncomplicated
[2020-09-06] MEDS: ASPIRIN 81 MG ECTAB PO SCH (08:56)
[2020-09-06] MEDS: FUROSEMIDE 40 MG TAB PO SCH (08:56)
[2020-09-06] MEDS: SPIRONOLACTONE 12.5 MG TAB PO SCH (08:56)
[2020-09-06] MEDS: TOPIRAMATE 100 MG TAB PO SCH (08:57)
[2020-09-06] MEDS: METOPROLOL SUCC 50MG EXT REL TAB PO SCH (08:57)
[2020-09-06] MEDS: CYANOCOBALAMIN 500 MCG TABLET (VITAMIN B-12) PO SCH (08:57)
[2020-09-06] MEDS: ATORVASTATIN 10 MG TAB PO SCH (08:57)
[2020-09-06] MEDS: levETIRAcetam 500 MG TAB PO SCH ×2 (08:57→20:12)
[2020-09-06] MEDS: FERROUS SULFATE 325 MG TAB PO SCH (08:57)
[2020-09-06] MEDS: ENOXAPARIN INJ 40 MG/0.4 ML SYR SQ SCH ×2 (08:58→20:15)
[2020-09-06] MEDS: DICLOFENAC SOD 1% GEL 100 GM TUBE EXT SCH ×4 (08:59→20:15)
[2020-09-06] MEDS ORDERED: INSULIN GLARGINE SOLOSTAR 100 UNITS/ML 3 ML PEN SC SCH (09:00)
[2020-09-06] MEDS: INSULIN ASPART 100 UNITS/ML 3 ML PEN SC SCH ×4 (09:00→20:58)
[2020-09-06] MEDS: modafiniL 100 MG TAB PO SCH (09:09)
[2020-09-06] MEDS: NYSTATIN POWDER 15GM BTL EXT SCH ×2 (09:09→20:14)
[2020-09-06] MEDS: EUCERIN CR 120 GM JAR EXT PRN (09:11)
[2020-09-06] MEDS: INSULIN GLARGINE SOLOSTAR 100 UNITS/ML 3 ML PEN SC SCH (20:58)
--- NOTE | 2020-09-06 22:34 | Hospitalist Progress Note ---
Date of Service September 06, 2020 Assessment & Plan (1) Seizure: Witnessed seizure in ER at time of admission. Suspected medication noncompliance as cause. No recurrent seizures since admission. Keppra level returned undetectable c/w noncompliance with AEDs. Keppra and topamax dosing kept the same. Cont seizure precautions. (2) Cellulitis and abscess of leg: resolved. LLE. s/p 10-day course of IV/PO abx. abx now off. (3) Venous stasis ulcers of both lower extremities: resolved. just severe stasis changes at this time. cont lasix 40mg daily (4) Asthma: lungs clear; no exacerbation at this time (5) Diabetes mellitus, type II: HbA1C 7.6%. holding oral agents. lantus/novolog while here. BSGs starting to rise -- adjust novolog again and basal insulin as well. (6) Hypertension: cont home meds controlled (7) Chronic respiratory failure with hypoxia: stable on home O2 amount - 2 L continuously. Obesity-hypoventilation syndrome likely cause of chronic resp failure. (8) Hearing impaired: severe has assistive device in room to help w/ this (9) Morbid obesity with BMI of 40.0-44.9, adult: BMI 41 (10) Ambulatory dysfunction: severe. does not walk at home. uses power chair. not safe to return home. boyfriend w/ whom she lives and 2 sons ALL IN AGREEMENT that she is not safe to return home at discharge. case management helping with dispo. (11) Intellectual disability: I am suspicious she has, at least, mild ID. She is dysmorphic appearing, does not seem to understand why returning home is not safe, lays in stool/urine and does not tell staff, etc. Would need IQ testing for diagnosing ID. Seen by psych - they agree she lacks capacity at this time. Needs healthcare POA - one of her children would hopefully act on her behalf. (12) Knee pain, bilateral: OA. Cont voltaren gel qid. (13) Leg pain, bilateral: dopplers neg for DVT. no issues today. (14) DVT prophylaxis: lovenox BID dispo - [facility] likely next week [facility] involved Admission and Anticipated Discharge Date Admission Date: August 27, 2020 Subjective no issues overnight. feels good. eating well. asks "when can I go home?" tele normal. Review of Systems Respiratory: no dyspnea Cardiovascular: no chest pain Gastrointestinal: no abdominal pain Physical Exam Constitutional: + morbidly obese; no acute distress and no altered mental status ENMT: external ear and nose normal, oropharynx normal Respiratory: normal respiratory effort, lungs clear to auscultation Cardiovascular: Rate/Rhythm: regular rate and regular rhythm Heart Sounds: normal S1 and normal S2; no murmur Vessels: posterior tibial pulses present and dorsalis pedis pulses present; no JVD Extremities: + edema (1+ b/l ) Gastrointestinal (Abdomen): normal bowel sounds, soft, nontender, no hepatosplenomegaly Inspection/Auscultation: + abdomen distended (Mild - no change ) Skin: severe stasis changes b/l Psychiatric: Orientation: alert, oriented to person, oriented to place and oriented to time Results & Data Results & Data ([facility]) Vital Signs (Past 12 Hours) Vital Signs Temp Pulse Pulse Resp BP BP Pulse Ox 09/06/20 20:11 36.8 C 84 19 104/72 98 09/06/20 15:56 37.2 C 75 20 107/67 97 09/06/20 15:22 74 09/06/20 11:43 36.8 C 75 18 117/74 98 Laboratory Results Laboratory Results - last 24 hr 09/06/20 09/06/20 09/06/20 07:53 11:45 16:36 POC Glucose 175 H 172 H 165 H 09/06/20 20:47 POC Glucose 232 H PG Care Time/CCT Total # of Minutes Spent Total Time Spent with Patient: Total time spent is greater than 50% in coordination of care (as documented) at patient's floor/unit and/or counseling patient: Coding Level of Care Code 13565 Subseq Hosp Care Lvl 2 Diagnoses Seizure R56.9 Cellulitis and abscess of leg L03.119; L02.419 Venous stasis ulcers of both lower extremities I83.019; I83.029; L97.919; L97.929 Asthma J45.909 Asthma complication type: unspecified Asthma persistence: unspecified Asthma severity: unspecified severity Diabetes mellitus, type II E11.9 Diabetes mellitus complication status: without complication Diabetes mellitus fpc insulin use: without computer terminal operator use Hypertension I10 Hypertension type: essential hypertension Chronic respiratory failure with hypoxia J96.11 Hearing impaired H91.93 Hearing loss type: unspecified Laterality: bilateral Morbid obesity with BMI of 40.0-44.9, adult E66.01; Z68.41 Ambulatory dysfunction R26.2 Intellectual disability F79 Knee pain, bilateral M25.561; M25.562 Chronicity: unspecified Leg pain, bilateral M79.604; M79.605 DVT prophylaxis Z29.9 (1) Hearing impaired Hearing loss type: unspecified Laterality: bilateral Qualified Code(s): H91.93 - Unspecified hearing loss, bilateral (2) Diabetes mellitus, type II Diabetes mellitus complication status: without complication Diabetes mellitus computer terminal operator insulin use: without fpc use Qualified Code(s): E11.9 - Type 2 diabetes mellitus without complications (3) Knee pain, bilateral Chronicity: unspecified Qualified Code(s): M25.561 - Pain in right knee; M25.562 - Pain in left knee (4) Hypertension Hypertension type: essential hypertension Qualified Code(s): I10 - Essential (primary) hypertension (5) Asthma Asthma complication type: unspecified Asthma persistence: unspecified Asthma severity: unspecified severity Qualified Code(s): J45.909 - Unspecified asthma, uncomplicated
[2020-09-07 09:04] LABS: BUN Creatinine Ratio 32.6 (10-20); Calcium 9.7 mg/dl (8.5-10.1); Creatinine Clr Calc Pharmacy 66.1 ml/min; Est GFR (African American) 81.6; Est GFR (Non-African American) 70.4; Potassium 3.6 mmol/L (3.5-5.1)
[2020-09-07] MEDS: levETIRAcetam 500 MG TAB PO SCH ×2 (09:16→21:36)
[2020-09-07] MEDS: SPIRONOLACTONE 12.5 MG TAB PO SCH (09:17)
[2020-09-07] MEDS: ASPIRIN 81 MG ECTAB PO SCH (09:18)
[2020-09-07] MEDS: TOPIRAMATE 100 MG TAB PO SCH (09:18)
[2020-09-07] MEDS: ATORVASTATIN 10 MG TAB PO SCH (09:18)
[2020-09-07] MEDS: FERROUS SULFATE 325 MG TAB PO SCH (09:18)
[2020-09-07] MEDS: FUROSEMIDE 40 MG TAB PO SCH (09:18)
[2020-09-07] MEDS: METOPROLOL SUCC 50MG EXT REL TAB PO SCH (09:19)
[2020-09-07] MEDS: CYANOCOBALAMIN 500 MCG TABLET (VITAMIN B-12) PO SCH (09:19)
[2020-09-07] MEDS: INSULIN GLARGINE SOLOSTAR 100 UNITS/ML 3 ML PEN SC SCH ×2 (09:20→21:37)
[2020-09-07] MEDS: ENOXAPARIN INJ 40 MG/0.4 ML SYR SQ SCH ×2 (09:21→21:38)
[2020-09-07] MEDS: DICLOFENAC SOD 1% GEL 100 GM TUBE EXT SCH ×4 (09:24→21:39)
[2020-09-07] MEDS: modafiniL 100 MG TAB PO SCH (09:34)
[2020-09-07] MEDS: INSULIN ASPART 100 UNITS/ML 3 ML PEN SC SCH ×4 (09:45→21:39)
[2020-09-07] MEDS: NYSTATIN POWDER 15GM BTL EXT SCH ×2 (09:50→21:38)
--- NOTE | 2020-09-07 11:24 | Hospitalist Progress Note ---
Date of Service September 07, 2020 Assessment & Plan (1) Cellulitis and abscess of leg: resolved. LLE. s/p 10-day course of IV/PO abx. abx now off. (2) Venous stasis ulcers of both lower extremities: resolved. just severe stasis changes at this time. cont lasix 40mg daily Continue skin care, lotion, pressure offloading to prevent skin breakdown with pillows and repositioning (3) Diabetes mellitus, type II: HbA1C 7.6%. holding oral agents. lantus/novolog while here. BSGs well controlled - 153 this morning, basal insulin and ISS adjusted (4) Hypertension: cont home meds controlled (5) Chronic respiratory failure with hypoxia: stable on home O2 amount - 2 L continuously. Obesity-hypoventilation syndrome likely cause of chronic resp failure. (6) Hearing impaired: severe has assistive device in room to help w/ this (7) Morbid obesity with BMI of 40.0-44.9, adult: BMI 41.5 (8) Ambulatory dysfunction: severe. does not walk at home. uses power chair. not safe to return home. boyfriend w/ whom she lives and 2 sons ALL IN AGREEMENT that she is not safe to return home at discharge. case management helping with dispo. (9) Intellectual disability: At least mild-moderate ID. She is dysmorphic appearing, does not seem to understand why returning home is not safe, lays in stool/urine and does not tell staff, etc. Would need IQ testing for diagnosing ID. Seen by psych - they agree she lacks capacity at this time. Needs healthcare POA - one of her children would hopefully act on her behalf. (10) Knee pain, bilateral: OA. Cont voltaren gel qid. (11) Leg pain, bilateral: dopplers neg for DVT. (12) Seizure disorder: No seizure activity during this admission, continue keppra 1000 mg BID, topamax 100 mg daily (13) Asthma: Stable, no exacerbation Continue albuterol inhaler prn (14) DVT prophylaxis: lovenox BID CODE: FULL Dispo - [facility] likely next week, [facility] A[facility] involved Admission and Anticipated Discharge Date Admission Date: August 27, 2020 Supervising Physician Co-Signing Physician Notes Attending Attestation: Chart reviewed, care plan d/w ZULEMA Salazar. I agree w/ the macias components of her documentation. Dispo planning in progress with case management assistance. Miles Vallejo MD Subjective The patient was seen and examined this morning. Pt states she is doing well, sit ting up in bedside chair. No acute complaints. Reports wanting to be home by Thanksgiving to cook ice cream for people. Review of Systems Review of Systems: Constitutional: No fever, sweats or chills Eyes: No diplopia, no worsening or blurred vision ENT: normal hearing, no trouble swallowing Respiratory: No cough, sputum, dyspnea at rest, on supplemental o2 at all times Cardiovascular: No chest pain, tightness or palpitations Abdomen: No pain, nausea, vomiting, diarrhea or constipation, + moves bowels d aily after taking meds Musculoskeletal: No joint pain, calf pain, swelling Neurologic: No weakness, numbness/tingling, or balance problems Psychiatric: No anxiety or depression Skin: No rash or itch Physical Exam Physical Exam: General: awake, alert, no apparent distress, + morbidly obese with BMI 41.5 Head: Normocephalic, atraumatic ENT: PERRL, EOMI, no pharyngeal exudate, mucous membranes moist Chest: Clear to auscultation, on 2 L via NC, sats 96% no adventitious breath sounds Cardiac: Regular rate and rhythm, no murmur, no JVD, normal peripheral pulses, good capillary refill Abdominal: NABS x 4 quadrants, soft, nondistended, nontender to palpation, no rebound or guarding Extremities: + chronic venous stasis changes bilaterally, no peripheral edema or erythema, calfs nontender to palpation Psych: Normal mood and affect Neuro: AAO x 3able to move toes and slightly bend ankles, not knees. Does not walk at baseline. Mild ID. No gross motor deficits, speech is clear, no peripheral sensory deficits Results & Data Results & Data ([facility]) Vital Signs (Past 12 Hours) Vital Signs Temp Pulse Pulse Resp BP BP Pulse Ox 09/07/20 07:49 73 09/07/20 07:00 36.8 C 76 20 114/75 96 09/07/20 03:00 36.8 C 73 20 115/69 96 PG Care Time/CCT Total # of Minutes Spent Total Time Spent with Patient: Total time spent is greater than 50% in coordination of care (as documented) at patient's floor/unit and/or counseling patient: Coding Level of Care Code 19899 Subseq Hosp Care Lvl 3 Diagnoses Cellulitis and abscess of leg L03.119; L02.419 Venous stasis ulcers of both lower extremities I83.019; I83.029; L97.919; L97.929 Diabetes mellitus, type II E11.9 Diabetes mellitus complication status: without complication Diabetes mellitus mcc insulin use: without mcc use Hypertension I10 Hypertension type: essential hypertension Chronic respiratory failure with hypoxia J96.11 Hearing impaired H91.93 Hearing loss type: unspecified Laterality: bilateral Morbid obesity with BMI of 40.0-44.9, adult E66.01; Z68.41 Ambulatory dysfunction R26.2 Intellectual disability F79 Knee pain, bilateral M25.561; M25.562 Chronicity: unspecified Leg pain, bilateral M79.604; M79.605 Seizure disorder G40.909 Asthma J45.909 DVT prophylaxis Z29.9 (1) Hearing impaired Hearing loss type: unspecified Laterality: bilateral Qualified Code(s): H91.93 - Unspecified hearing loss, bilateral (2) Diabetes mellitus, type II Diabetes mellitus complication status: without complication Diabetes mellitus mcc insulin use: without mcc use Qualified Code(s): E11.9 - Type 2 diabetes mellitus without complications (3) Knee pain, bilateral Chronicity: unspecified Qualified Code(s): M25.561 - Pain in right knee; M25.562 - Pain in left knee (4) Hypertension Hypertension type: essential hypertension Qualified Code(s): I10 - Essential (primary) hypertension
[2020-09-08] MEDS: INSULIN ASPART 100 UNITS/ML 3 ML PEN SC SCH ×4 (08:28→21:08)
[2020-09-08] MEDS: METOPROLOL SUCC 50MG EXT REL TAB PO SCH (08:29)
[2020-09-08] MEDS: FUROSEMIDE 40 MG TAB PO SCH (08:30)
[2020-09-08] MEDS: ATORVASTATIN 10 MG TAB PO SCH (08:30)
[2020-09-08] MEDS: SPIRONOLACTONE 12.5 MG TAB PO SCH (08:31)
[2020-09-08] MEDS: ASPIRIN 81 MG ECTAB PO SCH (08:31)
[2020-09-08] MEDS: ENOXAPARIN INJ 40 MG/0.4 ML SYR SQ SCH ×2 (08:31→21:10)
[2020-09-08] MEDS: FERROUS SULFATE 325 MG TAB PO SCH (08:31)
[2020-09-08] MEDS: TOPIRAMATE 100 MG TAB PO SCH (08:31)
[2020-09-08] MEDS: CYANOCOBALAMIN 500 MCG TABLET (VITAMIN B-12) PO SCH (08:31)
[2020-09-08] MEDS: INSULIN GLARGINE SOLOSTAR 100 UNITS/ML 3 ML PEN SC SCH ×2 (08:32→21:07)
[2020-09-08] MEDS: levETIRAcetam 500 MG TAB PO SCH ×2 (08:32→21:05)
[2020-09-08] MEDS: NYSTATIN POWDER 15GM BTL EXT SCH ×2 (08:33→21:10)
[2020-09-08] MEDS: DICLOFENAC SOD 1% GEL 100 GM TUBE EXT SCH ×4 (08:34→21:10)
[2020-09-08] MEDS: modafiniL 100 MG TAB PO SCH (08:39)
--- NOTE | 2020-09-08 15:48 | Hospitalist Progress Note ---
Date of Service September 08, 2020 Assessment & Plan (1) Cellulitis and abscess of leg: resolved. LLE. s/p 10-day course of IV/PO abx. abx now off. (2) Venous stasis ulcers of both lower extremities: resolved. just severe stasis changes at this time. cont lasix 40mg daily Continue skin care, lotion, pressure offloading to prevent skin breakdown with pillows and repositioning (3) Diabetes mellitus, type II: HbA1C 7.6%. holding oral agents. lantus/novolog while here. BSGs well controlled, basal insulin and ISS (4) Hypertension: cont home meds controlled (5) Chronic respiratory failure with hypoxia: stable on home O2 amount - 2 L continuously. Obesity-hypoventilation syndrome likely cause of chronic resp failure. (6) Hearing impaired: severe has assistive device in room to help w/ this (7) Morbid obesity with BMI of 40.0-44.9, adult: BMI 41.5 (8) Ambulatory dysfunction: severe. does not walk at home. uses power chair. not safe to return home. boyfriend w/ whom she lives and 2 sons ALL IN AGREEMENT that she is not safe to return home at discharge. case management helping with dispo. Psychiatry has deemed her to be incompetent (9) Intellectual disability: At least mild-moderate ID. Supportive care Seen by psych - they agree she lacks capacity at this time. Needs healthcare POA - one of her children would hopefully act on her behalf. (10) Knee pain, bilateral: OA. Cont voltaren gel qid. (11) Leg pain, bilateral: dopplers neg for DVT. (12) Seizure disorder: No seizure activity during this admission, continue keppra 1000 mg BID, topamax 100 mg daily (13) Asthma: Stable, no exacerbation Continue albuterol inhaler prn (14) DVT prophylaxis: lovenox BID CODE: FULL Dispo - [facility] at discharge. Office of Aging involved Admission and Anticipated Discharge Date Admission Date: August 27, 2020 Subjective Awake and complaining of diarrhea. She has baseline cognitive dysfunction. Psychiatry has determined her to be incompetent. She is refusing SNF placement however. Case management aware. Review of Systems Review of Systems: Constitutional-no fever or chills ENT-no blurred vision, no double vision, no epistaxis, no sore throat Respiratory-no cough, no wheezing, no shortness of breath Cardiac-no palpitations, no chest pain, no syncope GI- diarrhea. No melena, hematochezia -no urinary retention, no urinary incontinence, no dysuria, no hematuria Musculoskeletal-no joint pain, no muscle tenderness Skin-no bruising, no rashes, no pruritus Neuro-no isolated weakness, no paresthesia, no weakness Psych-no depression, no anxiety Physical Exam Physical Exam: General-alert and oriented x3. Baseline cognitive dysfunction. Morbid obesity HEENT-head atraumatic and normocephalic, TMs intact bilaterally, pupils equal and reactive to light, extraocular muscles intact Neck-no lymphadenopathy or thyromegaly, trachea midline Chest-clear to auscultation percussion. No rales wheezing or rhonchi Cardiac-regular rate and rhythm, normal S1 and S2, no murmurs Abdomen-normal bowel sounds, nontender, no hepatosplenomegaly Extremities-no cyanosis, clubbing, or edema Neuro-cranial nerves II through XII intact, motor and sensory function within normal limits, strength symmetrical 5/5, no focal deficits Psych-baseline cognitive dysfunction Results & Data Results & Data ([facility]) Vital Signs (Past 12 Hours) Vital Signs Temp Pulse Pulse Resp BP BP Pulse Ox 09/08/20 15:33 93 H 09/08/20 12:00 37.0 C 94 H 20 145/62 H 93 09/08/20 07:27 74 09/08/20 07:00 36.8 C 78 18 110/74 92 09/08/20 05:13 77 09/08/20 04:00 37.0 C 78 18 105/71 99 Laboratory Results 09/04/20 07:46 09/07/20 07:53 PG Care Time/CCT Total # of Minutes Spent Total Time Spent with Patient: Total time spent is greater than 50% in coordination of care (as documented) at patient's floor/unit and/or counseling patient: Coding Level of Care Code 90183 Subseq Hosp Care Lvl 3 Diagnoses Cellulitis and abscess of leg L03.119; L02.419 Venous stasis ulcers of both lower extremities I83.019; I83.029; L97.919; L97.929 Diabetes mellitus, type II E11.9 Diabetes mellitus snf insulin use: without snf use Diabetes mellitus complication status: without complication Hypertension I10 Hypertension type: essential hypertension Chronic respiratory failure with hypoxia J96.11 Hearing impaired H91.93 Hearing loss type: unspecified Laterality: bilateral Morbid obesity with BMI of 40.0-44.9, adult E66.01; Z68.41 Ambulatory dysfunction R26.2 Intellectual disability F79 Knee pain, bilateral M25.561; M25.562 Chronicity: unspecified Leg pain, bilateral M79.604; M79.605 Seizure disorder G40.909 Asthma J45.909 DVT prophylaxis Z29.9 (1) Diabetes mellitus, type II Diabetes mellitus longwall foreman insulin use: without longwall foreman use Diabetes melli tus complication status: without complication Qualified Code(s): E11.9 - Type 2 diabetes mellitus without complications (2) Hypertension Hypertension type: essential hypertension Qualified Code(s): I10 - Essential (primary) hypertension (3) Hearing impaired Hearing loss type: unspecified Laterality: bilateral Qualified Code(s): H91.93 - Unspecified hearing loss, bilateral (4) Knee pain, bilateral Chronicity: unspecified Qualified Code(s): M25.561 - Pain in right knee; M25.562 - Pain in left knee
[2020-09-09] MEDS: INSULIN GLARGINE SOLOSTAR 100 UNITS/ML 3 ML PEN SC SCH ×2 (08:48→21:47)
[2020-09-09] MEDS: INSULIN ASPART 100 UNITS/ML 3 ML PEN SC SCH ×4 (08:48→21:20)
[2020-09-09] MEDS: ENOXAPARIN INJ 40 MG/0.4 ML SYR SQ SCH ×2 (08:50→20:46)
[2020-09-09] MEDS: levETIRAcetam 500 MG TAB PO SCH ×2 (08:51→20:43)
[2020-09-09] MEDS: METOPROLOL SUCC 50MG EXT REL TAB PO SCH (08:51)
[2020-09-09] MEDS: TOPIRAMATE 100 MG TAB PO SCH (08:52)
[2020-09-09] MEDS: CYANOCOBALAMIN 500 MCG TABLET (VITAMIN B-12) PO SCH (08:52)
[2020-09-09] MEDS: ATORVASTATIN 10 MG TAB PO SCH (08:52)
[2020-09-09] MEDS: ASPIRIN 81 MG ECTAB PO SCH (08:52)
[2020-09-09] MEDS: FERROUS SULFATE 325 MG TAB PO SCH (08:52)
[2020-09-09] MEDS: SPIRONOLACTONE 12.5 MG TAB PO SCH (08:52)
[2020-09-09] MEDS: FUROSEMIDE 40 MG TAB PO SCH (08:52)
[2020-09-09] MEDS: NYSTATIN POWDER 15GM BTL EXT SCH ×2 (08:53→21:48)
[2020-09-09] MEDS: DICLOFENAC SOD 1% GEL 100 GM TUBE EXT SCH ×4 (08:53→20:44)
[2020-09-09] MEDS: modafiniL 100 MG TAB PO SCH (08:58)
--- NOTE | 2020-09-09 13:22 | Hospitalist Progress Note ---
Date of Service September 09, 2020 Assessment & Plan (1) Cellulitis and abscess of leg: resolved. LLE. s/p 10-day course of IV/PO abx. abx now off. (2) Venous stasis ulcers of both lower extremities: resolved. just severe stasis changes at this time. cont lasix 40mg daily Continue skin care, lotion, pressure offloading to prevent skin breakdown with pillows and repositioning (3) Diabetes mellitus, type II: HbA1C 7.6%. holding oral agents. lantus/novolog while here. BSGs well controlled with basal insulin and ISS (4) Hypertension: cont home meds controlled (5) Chronic respiratory failure with hypoxia: stable on home O2 amount - 2 L continuously. Obesity-hypoventilation syndrome likely cause of chronic resp failure. (6) Hearing impaired: severe has assistive device in room to help w/ this (7) Morbid obesity with BMI of 40.0-44.9, adult: BMI 41.5 (8) Ambulatory dysfunction: severe. does not walk at home. uses power chair. not safe to return home. boyfriend w/ whom she lives and 2 sons ALL IN AGREEMENT that she is not safe to return home at discharge. Case management helping with dispo. Psychiatry has deemed her to be incompetent to make discharge decisions (9) Intellectual disability: At least mild-moderate ID. Supportive care Seen by psych - they agree she lacks capacity at this time. Needs healthcare POA - one of her children would hopefully act on her behalf. (10) Knee pain, bilateral: OA. Cont voltaren gel qid. (11) Leg pain, bilateral: dopplers neg for DVT. (12) Seizure disorder: No seizure activity during this admission, continue keppra 1000 mg BID, topamax 100 mg daily (13) Asthma: Stable, no exacerbation Continue albuterol inhaler prn (14) DVT prophylaxis: lovenox BID CODE: FULL Dispo - [facility] at discharge. Office of Aging involved Admission and Anticipated Discharge Date Admission Date: August 27, 2020 Subjective Alert with baseline cognitive dysfunction. Psychiatry has determined her to be incompetent to make discharge decisions. She currently is refusing placement at an SNF facility. She had a formed bowel movement and does not appear to have C. difficile. Stool assessment remains pending. Afebrile with stable vital signs at this time. She chronically is on 2 L of oxygen at home and is at her baseline Review of Systems Review of Systems: Constitutional-no fever or chills ENT-no blurred vision, no double vision, no epistaxis, no sore throat Respiratory-no cough, no wheezing, no shortness of breath Cardiac-no palpitations, no chest pain, no syncope GI-no nausea, vomiting, melena, hematochezia -no urinary retention, no urinary incontinence, no dysuria, no hematuria Musculoskeletal-no joint pain, no muscle tenderness Skin-no bruising, no rashes, no pruritus Neuro-no isolated weakness, no paresthesia, no weakness Psych-no depression, no anxiety Physical Exam Physical Exam: General-alert, baseline cognitive dysfunction, no fevers, no chills HEENT-head atraumatic and normocephalic, TMs intact bilaterally, pupils equal and reactive to light, extraocular muscles intact Neck-no lymphadenopathy or thyromegaly, trachea midline Chest-clear to auscultation percussion. No rales wheezing or rhonchi Cardiac-regular rate and rhythm, normal S1 and S2, no murmurs Abdomen-normal bowel sounds, nontender, no hepatosplenomegaly Extremities-no cyanosis, clubbing, or edema Neuro-cranial nerves II through XII intact, no focal deficits Skincellulitis left lower extremity resolved. Warm and dry Results & Data Results & Data ([facility]) Vital Signs (Past 12 Hours) Vital Signs Temp Pulse Resp BP Pulse Ox 09/09/20 04:30 36.9 C 88 19 118/79 95 Laboratory Results 09/04/20 07:46 09/07/20 07:53 PG Care Time/CCT Total # of Minutes Spent Total Time Spent with Patient: Total time spent is greater than 50% in coordination of care (as documented) at patient's floor/unit and/or counseling patient: Coding Level of Care Code 08578 Subseq Hosp Care Lvl 2 Diagnoses Cellulitis and abscess of leg L03.119; L02.419 Venous stasis ulcers of both lower extremities I83.019; I83.029; L97.919; L97.929 Diabetes mellitus, type II E11.9 Diabetes mellitus senior care insulin use: without senior care use Diabetes mellitus complication status: without complication Hypertension I10 Hypertension type: essential hypertension Chronic respiratory failure with hypoxia J96.11 Hearing impaired H91.93 Hearing loss type: unspecified Laterality: bilateral Morbid obesity with BMI of 40.0-44.9, adult E66.01; Z68.41 Ambulatory dysfunction R26.2 Intellectual disability F79 Knee pain, bilateral M25.561; M25.562 Chronicity: unspecified Leg pain, bilateral M79.604; M79.605 Seizure disorder G40.909 Asthma J45.909 DVT prophylaxis Z29.9 (1) Diabetes mellitus, type II Diabetes mellitus senior care insulin use: without senior care use Diabetes mellitus complication status: without complication Qualified Code(s): E11.9 - Type 2 diabetes mellitus without complications (2) Hypertension Hypertension type: essential hypertension Qualified Code(s): I10 - Essential (primary) hypertension (3) Hearing impaired Hearing loss type: unspecified Laterality: bilateral Qualified Code(s): H91.93 - Unspecified hearing loss, bilateral (4) Knee pain, bilateral Chronicity: unspecified Qualified Code(s): M25.561 - Pain in right knee; M25.562 - Pain in left knee
[2020-09-10] MEDS: METOPROLOL SUCC 50MG EXT REL TAB PO SCH (08:59)
[2020-09-10] MEDS: ATORVASTATIN 10 MG TAB PO SCH (08:59)
[2020-09-10] MEDS: TOPIRAMATE 100 MG TAB PO SCH (08:59)
[2020-09-10] MEDS: SPIRONOLACTONE 12.5 MG TAB PO SCH (08:59)
[2020-09-10] MEDS: levETIRAcetam 500 MG TAB PO SCH ×2 (08:59→20:52)
[2020-09-10] MEDS: CYANOCOBALAMIN 500 MCG TABLET (VITAMIN B-12) PO SCH (08:59)
[2020-09-10] MEDS: NYSTATIN POWDER 15GM BTL EXT SCH ×2 (09:00→20:47)
[2020-09-10] MEDS: FUROSEMIDE 40 MG TAB PO SCH (09:00)
[2020-09-10] MEDS: ASPIRIN 81 MG ECTAB PO SCH (09:00)
[2020-09-10] MEDS: FERROUS SULFATE 325 MG TAB PO SCH (09:00)
[2020-09-10] MEDS: ENOXAPARIN INJ 40 MG/0.4 ML SYR SQ SCH ×2 (09:01→20:52)
[2020-09-10] MEDS: DICLOFENAC SOD 1% GEL 100 GM TUBE EXT SCH ×4 (09:01→20:46)
[2020-09-10] MEDS: INSULIN ASPART 100 UNITS/ML 3 ML PEN SC SCH ×4 (09:09→20:54)
[2020-09-10] MEDS: INSULIN GLARGINE SOLOSTAR 100 UNITS/ML 3 ML PEN SC SCH ×2 (09:09→20:53)
[2020-09-10] MEDS: modafiniL 100 MG TAB PO SCH (11:08)
--- NOTE | 2020-09-10 13:20 | Hospitalist Progress Note ---
Date of Service September 10, 2020 Assessment & Plan (1) Ambulatory dysfunction: severe. does not walk at home. uses power chair. not safe to return home. boyfriend w/ whom she lives and 2 sons ALL IN AGREEMENT that she is not safe to return home at discharge. Case management helping with dispo. Psychiatry has deemed her to be incompetent to make discharge decisions (2) Intellectual disability: At least mild-moderate ID. Supportive care Seen by psych - they agree she lacks capacity at this time. Needs healthcare POA - one of her children would hopefully act on her behalf. (3) Cellulitis and abscess of leg: resolved. LLE. s/p 10-day course of IV/PO abx. abx now off. (4) Venous stasis ulcers of both lower extremities: resolved. just severe stasis changes at this time. cont lasix 40mg daily Continue skin care, lotion, pressure offloading to prevent skin breakdown with pillows and repositioning (5) Diabetes mellitus, type II: HbA1C 7.6%. holding oral agents. lantus/novolog while here. BSGs well controlled with basal insulin and ISS (6) Hypertension: cont home meds controlled (7) Chronic respiratory failure with hypoxia: stable on home O2 amount - 2 L continuously. Obesity-hypoventilation syndrome likely cause of chronic resp failure. (8) Hearing impaired: severe has assistive device in room to help w/ this (9) Morbid obesity with BMI of 40.0-44.9, adult: BMI 41.5 (10) Knee pain, bilateral: OA. Cont voltaren gel qid. (11) Leg pain, bilateral: dopplers neg for DVT. (12) Seizure disorder: No seizure activity during this admission, continue keppra 1000 mg BID, topamax 100 mg daily (13) Asthma: Stable, no exacerbation Continue albuterol inhaler prn (14) DVT prophylaxis: lovenox BID CODE: FULL Dispo - [facility] has no beds. Other referrals placed by CM. Office of Aging involved Admission and Anticipated Discharge Date Admission Date: August 27, 2020 Subjective Patient has no complaints. She is agreeable to discharge to a rehab facility. Denies chest pain, abd pain. Eating well. Wearing baseline oxygen requirement 2L NC. Denies cough, sob. Review of Systems Constitutional: no fever, no chills, no fatigue, no weakness, no anorexia, no weight loss and no weight gain Ear, Nose, Mouth, Throat: no nasal congestion, no sore throat and no dysphagia Respiratory: no cough and no dyspnea Cardiovascular: no chest pain, no dyspnea on exertion, no orthopnea and no palpitations Gastrointestinal: no abdominal pain, no nausea, no vomiting, no hematemesis, no dysphagia, no constipation, no diarrhea/loose stools, no blood in stools and no melena Genitourinary: no dysuria, no urinary frequency, no hematuria and no flank pain Musculoskeletal: no back pain, no joint pain, no myalgia and no muscle weakness Integumentary: no rash, no lesions, no skin ulcer, no erythema, no dry skin and no pruritus Neurologic: no falls, no localized weakness, no generalized weakness, no numbness, no paresthesia, no tremor(s) and no headache(s) Psychiatric: no depression, no suicidal ideation, no homicidal ideation and no anxiety Endocrine: no cold intolerance and no heat intolerance Hematologic / Lymphatic: no easy bleeding and no easy bruising Physical Exam Constitutional: well developed, well nourished and + morbidly obese; no acute distress Eyes: PERRL, conjunctivae normal, anicteric sclerae ENMT: Mouth: oral mucous membranes not dry Respiratory: normal respiratory effort; no respiratory distress and no labored breathing Auscultation: lungs clear to auscultation bilaterally; no crackles, no rales, no rhonchi and no wheezes wearing 2L NC Cardiovascular: Rate/Rhythm: regular rate and regular rhythm Heart Sounds: no murmur and no cardiac rub Vessels: normal peripheral pulses and radial pulses present; no JVD Extremities: no edema Gastrointestinal (Abdomen): Inspection/Auscultation: abdomen normal to inspection and normal bowel sounds; abdomen not distended Percussion/Palpation: abdomen soft; abdomen nontender, no guarding, abdomen not rigid and no hepatosplenomegaly Musculoskeletal: Head/Neck/Chest: normocephalic and head atraumatic Spine: no cervical spinal tenderness, no cervical muscular tenderness, no thoracic spinal tenderness and no lumbar spinal tenderness Skin: no rashes, warm and dry Neurologic: CN's II-XI intact bilaterally and moves all extremities Motor/Sensory: no tremor and no sensory deficit Psychiatric: Orientation: alert, oriented to person, oriented to place and oriented to time Apperance: appropriately groomed; not disheveled Affect: euthymic affect; no anxious affect and no tearful affect Genitourinary: no CVA tenderness no Chavez catheter Results & Data Results & Data ([facility]) Vital Signs (Past 12 Hours) Vital Signs Temp Pulse Resp BP Pulse Ox 09/10/20 07:17 36.7 C 79 16 127/78 97 Laboratory Results Abnormal lab results 09/09/20 09/09/20 09/10/20 Range/Units 16:12 20:16 08:21 POC Glucose 254 H 105 H 119 H (70-99) mg/dl 09/10/20 Range/Units 12:09 POC Glucose 180 H (70-99) mg/dl Medications Administered Current Inpatient Medications Aspirin (Aspirin 81 Mg Ectab) 81 mg PO DAILY MIGUEL Stop: 09/26/20 08:59 Last Admin: 09/10/20 09:00 Dose: 81 mg Documented by: Atorvastatin Calcium (Atorvastatin 10 Mg Tab) 10 mg PO DAILY MIGUEL Stop: 09/26/20 08:59 Last Admin: 09/10/20 08:59 Dose: 10 mg Documented by: Cyanocobalamin (Cyanocobalamin 500 Mcg Tablet (Vitamin B-12)) 1,000 mcg PO DAILY MIGUEL Stop: 09/26/20 08:59 Last Admin: 09/10/20 08:59 Dose: 1,000 mcg Documented by: Diclofenac Sodium (Diclofenac Sod 1% Gel 100 Gm Tube) 4 gm EXT QID MIGUEL Stop: 10/03/20 16:59 Last Admin: 09/10/20 09:01 Dose: 4 gm Documented by: Enoxaparin Sodium (Enoxaparin Inj 40 Mg/0.4 Ml Syr) 40 mg SQ Q12 MIGUEL Stop: 09/26/20 08:59 Last Admin: 09/10/20 09:01 Dose: 40 mg Documented by: Ferrous Sulfate (Ferrous Sulfate 325 Mg Tab) 325 mg PO DAILY MIGUEL Stop: 09/26/20 08:59 Last Admin: 09/10/20 09:00 Dose: 325 mg Documented by: Furosemide (Furosemide 40 Mg Tab) 40 mg PO QAM MIGUEL Stop: 09/26/20 08:59 Last Admin: 09/10/20 09:00 Dose: 40 mg Documented by: Glucagon (Glucagon For Inj 1 Mg Vial) 1 mg SQ UD PRN; Protocol PRN Reason: Hypoglycemia Protocol Stop: 09/26/20 07:13 Glucose (Glucose 10 Tabs/Tube) 4 - 8 tabs PO UD PRN; Protocol PRN Reason: Hypoglycemia Protocol Stop: 09/26/20 07:13 Glucose (Glucose 40% Gel 15 Gm Tube) 15 - 30 gm PO UD PRN; Protocol PRN Reason: Hypoglycemia Protocol Stop: 09/26/20 07:13 Insulin Aspart (Insulin Aspart 100 Units/Ml 3 Ml Pen) 0 units SC ACHS MIGUEL Stop: 09/26/20 07:29 Last Admin: 09/10/20 09:09 Dose: 6 units Documented by: Insulin Glargine (Insulin Glargine Solostar 100 Units/Ml 3 Ml Pen) 17 units SC BID MIGUEL Stop: 10/07/20 20:59 Last Admin: 09/10/20 09:09 Dose: 17 units Documented by: Levetiracetam (Levetiracetam 500 Mg Tab) 1,000 mg PO BID MIGUEL Stop: 09/26/20 08:59 Last Admin: 09/10/20 08:59 Dose: 1,000 mg Documented by: Metoprolol Succinate (Metoprolol Succ 50mg Ext Rel Tab) 50 mg PO DAILY MIGUEL Stop: 09/26/20 08:59 Last Admin: 09/10/20 08:59 Dose: 50 mg Documented by: Modafinil (Modafinil 100 Mg Tab) 100 mg PO DAILY MIGUEL Stop: 09/26/20 08:59 Last Admin: 09/10/20 11:08 Dose: 100 mg Documented by: Multi-Ingredient Cream (Eucerin Cr 120 Gm Jar) 1 appln EXT BID PRN PRN Reason: Dryness Stop: 10/01/20 15:38 Last Admin: 09/06/20 09:11 Dose: 1 appln Documented by: Nystatin (Nystatin Powder 15gm Btl) 1 appln EXT BID [facility] Stop: 09/26/20 08:59 Last Admin: 09/10/20 09:00 Dose: 1 appln Documented by: Oxycodone HCl (Oxycodone Hcl Ir 5 Mg Tab (Immediate Release)) 5 mg PO Q8H PRN PRN Reason: Pain Stop: 09/17/20 09:26 Spironolactone (Spironolactone 12.5 Mg Tab) 12.5 mg PO DAILY [facility] Stop: 09/26/20 08:59 Last Admin: 09/10/20 08:59 Dose: 12.5 mg Documented by: Topiramate (Topiramate 100 Mg Tab) 100 mg PO QAM MIGUEL Stop: 09/26/20 08:59 Last Admin: 09/10/20 08:59 Dose: 100 mg Documented by: PG Care Time/CCT Total # of Minutes Spent Total Time Spent with Patient: Total time spent is greater than 50% in coordination of care (as documented) at patient's floor/unit and/or counseling patient: Coding Level of Care Code 27764 Subseq Hosp Care Lvl 3 Diagnoses Ambulatory dysfunction R26.2 Intellectual disability F79 Cellulitis and abscess of leg L03.119; L02.419 Venous stasis ulcers of both lower extremities I83.019; I83.029; L97.919; L97.929 Diabetes mellitus, type II E11.9 Diabetes mellitus lobsterman insulin use: without prison use Diabetes mellitus complication status: without complication Hypertension I10 Hypertension type: essential hypertension Chronic respiratory failure with hypoxia J96.11 Hearing impaired H91.93 Hearing loss type: unspecified Laterality: bilateral Morbid obesity with BMI of 40.0-44.9, adult E66.01; Z68.41 Knee pain, bilateral M25.561; M25.562 Chronicity: unspecified Leg pain, bilateral M79.604; M79.605 Seizure disorder G40.909 Asthma J45.909 Asthma severity: unspecified severity Asthma persistence: unspecified Asthma complication type: uncomplicated DVT prophylaxis Z29.9 (1) Diabetes mellitus, type II Diabetes mellitus lobsterman insulin use: without prison use Diabetes mellitus complication status: without complication Qualified Code(s): E11.9 - Type 2 diabetes mellitus without complications (2) Hypertension Hypertension type: essential hypertension Qualified Code(s): I10 - Essential (primary) hypertension (3) Hearing impaired Hearing loss type: unspecified Laterality: bilateral Qualified Code(s): H91.93 - Unspecified hearing loss, bilateral (4) Knee pain, bilateral Chronicity: unspecified Qualified Code(s): M25.561 - Pain in right knee; M25.562 - Pain in left knee (5) Asthma Asthma severity: unspecified severity Asthma persistence: unspecified Asthma complication type: uncomplicated Qualified Code(s): J45.909 - Unspecified asthma, uncomplicated
[2020-09-11 06:16] LABS: Basophils # (auto) 0.03 K/uL (0-0.2); Basophils % (auto) 0.6 %; Eosinophils # (auto) 0.35 K/uL (0-0.5); Eosinophils % (auto) 6.5 %; Hematocrit (blood only) 37.6 % (37-47); Hemoglobin 11.3 g/dL (12.0-16.0); Immature Granulocytes # (auto) 0.02 K/uL (0.00-0.02); Immature Granulocytes % (auto) 0.4 %; Lymphocytes # (auto) 1.32 K/uL (1.2-3.4); Lymphocytes % (auto) 24.4 %; Mean Corpuscular Hemoglobin 27.4 pg (25-34); Mean Corpuscular Hgb Conc 30.1 g/dL (32-36); Mean Platelet Volume 11.2 fL (7.4-10.4); Monocytes # (auto) 0.46 K/uL (0.11-0.59); Monocytes % (auto) 8.5 %; Neutrophils # (auto) 3.24 K/uL (1.4-6.5); Neutrophils % (auto) 59.6 %; Platelet Count 184 K/uL (130-400); RDW Coefficient of Variation 14.8 % (11.5-14.5); RDW Standard Deviation 49.7 fL (36.4-46.3); Red Blood Count 4.13 M/uL (4.2-5.4); White Blood Count 5.42 K/uL (4.8-10.8)
[2020-09-11 06:42] LABS: BUN Creatinine Ratio 34.3 (10-20); Calcium 8.7 mg/dl (8.5-10.1); Creatinine Clr Calc Pharmacy 60.8 ml/min; Est GFR (African American) 74.4; Est GFR (Non-African American) 64.2; Potassium 3.3 mmol/L (3.5-5.1)
[2020-09-11] MEDS: levETIRAcetam 500 MG TAB PO SCH ×2 (08:25→20:07)
[2020-09-11] MEDS: DICLOFENAC SOD 1% GEL 100 GM TUBE EXT SCH ×4 (08:26→20:08)
[2020-09-11] MEDS: SPIRONOLACTONE 12.5 MG TAB PO SCH (08:36)
[2020-09-11] MEDS: FERROUS SULFATE 325 MG TAB PO SCH (08:36)
[2020-09-11] MEDS: CYANOCOBALAMIN 500 MCG TABLET (VITAMIN B-12) PO SCH (08:36)
[2020-09-11] MEDS: ASPIRIN 81 MG ECTAB PO SCH (08:36)
[2020-09-11] MEDS: modafiniL 100 MG TAB PO SCH (08:36)
[2020-09-11] MEDS: FUROSEMIDE 40 MG TAB PO SCH (08:36)
[2020-09-11] MEDS: NYSTATIN POWDER 15GM BTL EXT SCH ×2 (08:37→20:07)
[2020-09-11] MEDS: ENOXAPARIN INJ 40 MG/0.4 ML SYR SQ SCH ×2 (08:37→20:06)
[2020-09-11] MEDS: TOPIRAMATE 100 MG TAB PO SCH (08:37)
[2020-09-11] MEDS: ATORVASTATIN 10 MG TAB PO SCH (08:37)
[2020-09-11] MEDS: METOPROLOL SUCC 50MG EXT REL TAB PO SCH (08:37)
[2020-09-11] MEDS ORDERED: POTASSIUM CHLORIDE CRTAB 20 MEQ TABCR PO STA (09:06)
--- NOTE | 2020-09-11 09:11 | Hospitalist Progress Note ---
Date of Service September 11, 2020 Assessment & Plan (1) Ambulatory dysfunction: does not walk at home, uses power chair not safe to return home. boyfriend w/ whom she lives and 2 sons in agreement that she is not safe to return home at discharge. Case management helping with dispo (2) Intellectual disability: At least mild-moderate ID. Supportive care Seen by psych - determined that she lacks capacity for medical decision making Needs healthcare POA - one of her children would hopefully act on her behalf. (3) Hypokalemia: 1112 replace with 40meq K-Cl checking Mg (4) Venous stasis ulcers of both lower extremities: resolved. just severe stasis changes at this time. cont lasix 40mg daily Continue skin care, lotion, pressure offloading to prevent skin breakdown with pillows and repositioning (5) Cellulitis and abscess of leg: resolved. LLE. s/p 10-day course of IV/PO abx. abx now off. (6) Chronic respiratory failure with hypoxia: stable on home O2 amount - 2 L continuously. Obesity-hypoventilation syndrome likely cause of chronic resp failure. (7) Diabetes mellitus, type II: HbA1C 7.6%. holding oral agents. lantus/novolog while here. BSGs well controlled with basal insulin and ISS (8) Hypertension: cont home meds controlled (9) Hearing impaired: severe has assistive device in room to help w/ this (10) Morbid obesity with BMI of 40.0-44.9, adult: BMI 41.5 (11) Knee pain, bilateral: OA. Cont voltaren gel qid. (12) Leg pain, bilateral: dopplers neg for DVT. (13) Seizure disorder: No seizure activity during this admission, continue keppra 1000 mg BID, topamax 100 mg daily (14) Asthma: Stable, no exacerbation Continue albuterol inhaler prn (15) DVT prophylaxis: lovenox BID CODE: FULL Dispo - [facility] has no beds. Other referrals placed by CM. Office of Aging involved 09-10 [facility]) called to say a bed may be available next week Admission and Anticipated Discharge Date Admission Date: August 27, 2020 Subjective Boyfriend at bedside states patient has difficulty making it to the bathroom, having accidents and is incontinent. Not having falls. Patient adamant that, "I'm not sick" and that, "I'm not going to [place]." [place] is the location of the rehab facility that may have a bed for the patient within the next week. Patient does not want to go there because it is too far from home -- she states that she needs to be able to sign her checks so that her boyfriend can deposit them. Patient has no complaints otherwise. Tolerating diet. No BM today. Making urine. Review of Systems Constitutional: no fever, no chills, no fatigue, no weakness, no anorexia, no weight loss and no weight gain Ear, Nose, Mouth, Throat: no nasal congestion, no sore throat and no dysphagia Respiratory: no cough and no dyspnea Cardiovascular: no chest pain, no dyspnea on exertion, no orthopnea and no palpitations Gastrointestinal: no abdominal pain, no nausea, no vomiting, no hematemesis, no dysphagia, no constipation, no diarrhea/loose stools, no blood in stools and no melena Genitourinary: no dysuria, no urinary frequency, no hematuria and no flank pain Musculoskeletal: no back pain, no joint pain, no myalgia and no muscle weakness Integumentary: no rash, no lesions, no skin ulcer, no erythema, no dry skin and no pruritus Neurologic: no falls, no localized weakness, no generalized weakness, no numbness, no paresthesia, no tremor(s) and no headache(s) Psychiatric: no depression, no suicidal ideation, no homicidal ideation and no anxiety Endocrine: no cold intolerance and no heat intolerance Hematologic / Lymphatic: no easy bleeding and no easy bruising Physical Exam Constitutional: well developed, well nourished and + morbidly obese; no acute distress Eyes: PERRL, conjunctivae normal, anicteric sclerae ENMT: Mouth: oral mucous membranes not dry Respiratory: normal respiratory effort; no respiratory distress and no labored breathing Auscultation: lungs clear to auscultation bilaterally; no crackles, no rales, no rhonchi and no wheezes Cardiovascular: Rate/Rhythm: regular rate and regular rhythm Heart Sounds: no murmur and no cardiac rub Vessels: normal peripheral pulses and radial pulses present; no JVD Extremities: no edema Gastrointestinal (Abdomen): Inspection/Auscultation: abdomen normal to inspection and normal bowel sounds; abdomen not distended Percussion/Palpation: abdomen soft; abdomen nontender, no guarding, abdomen not rigid and no hepatosplenomegaly Musculoskeletal: Head/Neck/Chest: normocephalic and head atraumatic Spine: no cervical spinal tenderness, no cervical muscular tenderness, no thoracic spinal tenderness and no lumbar spinal tenderness Skin: no rashes, warm and dry chronic venous stasis dermatitis Neurologic: CN's II-XI intact bilaterally and moves all extremities Motor/Sensory: no tremor and no sensory deficit Psychiatric: Orientation: alert, oriented to person, oriented to place and oriented to time Apperance: appropriately groomed; not disheveled Affect: euthymic affect; no anxious affect and no tearful affect Genitourinary: no CVA tenderness Results & Data Results & Data ([facility]) Vital Signs (Past 12 Hours) Vital Signs Temp Pulse Resp BP Pulse Ox 09/11/20 07:20 36.5 C 81 18 107/67 97 09/10/20 23:29 36.6 C 81 18 116/77 97 Laboratory Results Abnormal lab results 09/10/20 09/10/20 09/10/20 Range/Units 12:09 17:13 20:51 RBC (4.2-5.4) M/uL Hgb (12.0-16.0) g/dL MCHC (32-36) g/dL RDW Std Deviation (36.4-46.3) fL RDW Coeff of Ewa (11.5-14.5) % MPV (7.4-10.4) fL Potassium (3.5-5.1) mmol/L Carbon Dioxide (21-32) mmol/L Anion Gap (3-11) BUN (7-18) mg/dl BUN/Creatinine Ratio (10-20) Glucose (70-99) mg/dl POC Glucose 180 H 150 H 257 H (70-99) mg/dl 09/11/20 09/11/20 09/11/20 Range/Units 05:32 05:32 08:25 RBC 4.13 L (4.2-5.4) M/uL Hgb 11.3 L (12.0-16.0) g/dL MCHC 30.1 L (32-36) g/dL RDW Std Deviation 49.7 H (36.4-46.3) fL RDW Coeff of Ewa 14.8 H (11.5-14.5) % MPV 11.2 H (7.4-10.4) fL Potassium 3.3 L (3.5-5.1) mmol/L Carbon Dioxide 38 H (21-32) mmol/L Anion Gap 2.0 L (3-11) BUN 33 H (7-18) mg/dl BUN/Creatinine Ratio 34.3 H (10-20) Glucose 100 H (70-99) mg/dl POC Glucose 119 H (70-99) mg/dl Medications Administered Current Inpatient Medications Aspirin (Aspirin 81 Mg Ectab) 81 mg PO DAILY MIGUEL Stop: 09/26/20 08:59 Last Admin: 09/11/20 08:36 Dose: 81 mg Documented by: Atorvastatin Calcium (Atorvastatin 10 Mg Tab) 10 mg PO DAILY MIGUEL Stop: 09/26/20 08:59 Last Admin: 09/11/20 08:37 Dose: 10 mg Documented by: Cyanocobalamin (Cyanocobalamin 500 Mcg Tablet (Vitamin B-12)) 1,000 mcg PO DAILY MIGUEL Stop: 09/26/20 08:59 Last Admin: 09/11/20 08:36 Dose: 1,000 mcg Documented by: Dextrose (Dextrose 50% 50 Ml Syringe) 25 - 50 ml IV UD PRN; Protocol PRN Reason: Hypoglycemia Protocol Stop: 09/26/20 07:13 Diclofenac Sodium (Diclofenac Sod 1% Gel 100 Gm Tube) 4 gm EXT QID MIGUEL Stop: 10/03/20 16:59 Last Admin: 09/11/20 08:26 Dose: 4 gm Documented by: Enoxaparin Sodium (Enoxaparin Inj 40 Mg/0.4 Ml Syr) 40 mg SQ Q12 MIGUEL Stop: 09/26/20 08:59 Last Admin: 09/11/20 08:37 Dose: 40 mg Documented by: Ferrous Sulfate (Ferrous Sulfate 325 Mg Tab) 325 mg PO DAILY MIGUEL Stop: 09/26/20 08:59 Last Admin: 09/11/20 08:36 Dose: 325 mg Documented by: Furosemide (Furosemide 40 Mg Tab) 40 mg PO QAM MIGUEL Stop: 09/26/20 08:59 Last Admin: 09/11/20 08:36 Dose: 40 mg Documented by: Glucagon (Glucagon For Inj 1 Mg Vial) 1 mg SQ UD PRN; Protocol PRN Reason: Hypoglycemia Protocol Stop: 09/26/20 07:13 Glucose (Glucose 10 Tabs/Tube) 4 - 8 tabs PO UD PRN; Protocol PRN Reason: Hypoglycemia Protocol Stop: 09/26/20 07:13 Glucose (Glucose 40% Gel 15 Gm Tube) 15 - 30 gm PO UD PRN; Protocol PRN Reason: Hypoglycemia Protocol Stop: 09/26/20 07:13 Insulin Aspart (Insulin Aspart 100 Units/Ml 3 Ml Pen) 0 units SC ACHS MIGUEL Stop: 09/26/20 07:29 Last Admin: 09/10/20 20:54 Dose: 8 units Documented by: Insulin Glargine (Insulin Glargine Solostar 100 Units/Ml 3 Ml Pen) 17 units SC BID MIGUEL Stop: 10/07/20 20:59 Last Admin: 09/10/20 20:53 Dose: 17 units Documented by: Levetiracetam (Levetiracetam 500 Mg Tab) 1,000 mg PO BID MIGUEL Stop: 09/26/20 08:59 Last Admin: 09/11/20 08:25 Dose: 1,000 mg Documented by: Metoprolol Succinate (Metoprolol Succ 50mg Ext Rel Tab) 50 mg PO DAILY MIGUEL Stop: 09/26/20 08:59 Last Admin: 09/11/20 08:37 Dose: 50 mg Documented by: Miscellaneous (Carbohydrates For Hypoglycemia ) 15 - 30 gm PO UD PRN PRN Reason: Hypoglycemia Protocol Stop: 09/26/20 07:13 Modafinil (Modafinil 100 Mg Tab) 100 mg PO DAILY MIGUEL Stop: 09/26/20 08:59 Last Admin: 09/11/20 08:36 Dose: 100 mg Documented by: Multi-Ingredient Cream (Eucerin Cr 120 Gm Jar) 1 appln EXT BID PRN PRN Reason: Dryness Stop: 10/01/20 15:38 Last Admin: 09/06/20 09:11 Dose: 1 appln Documented by: Nystatin (Nystatin Powder 15gm Btl) 1 appln EXT BID MIGUEL Stop: 09/26/20 08:59 Last Admin: 09/11/20 08:37 Dose: 1 appln Documented by: Oxycodone HCl (Oxycodone Hcl Ir 5 Mg Tab (Immediate Release)) 5 mg PO Q8H PRN PRN Reason: Pain Stop: 09/17/20 09:26 Potassium Chloride (Potassium Chloride 20 Meq Tabcr) 40 meq PO NOW STA Stop: 09/11/20 09:07 Spironolactone (Spironolactone 12.5 Mg Tab) 12.5 mg PO DAILY MIGUEL Stop: 09/26/20 08:59 Last Admin: 09/11/20 08:36 Dose: 12.5 mg Documented by: Topiramate (Topiramate 100 Mg Tab) 100 mg PO QAM MIGUEL Stop: 09/26/20 08:59 Last Admin: 09/11/20 08:37 Dose: 100 mg Documented by: PG Care Time/CCT Total # of Minutes Spent Total Time Spent with Patient: Total time spent is greater than 50% in coordination of care (as documented) at patient's floor/unit and/or counseling patient: Coding Level of Care Code 44971 Subseq Hosp Care Lvl 3 Diagnoses Ambulatory dysfunction R26.2 Intellectual disability F79 Hypokalemia E87.6 Venous stasis ulcers of both lower extremities I83.019; I83.029; L97.919; L97.929 Cellulitis and abscess of leg L03.119; L02.419 Chronic respiratory failure with hypoxia J96.11 Diabetes mellitus, type II E11.9 Diabetes mellitus complication status: without complication Diabetes mellitus penitentiary insulin use: without terminal block assembler use Hypertension I10 Hypertension type: essential hypertension Hearing impaired H91.93 Hearing loss type: unspecified Laterality: bilateral Morbid obesity with BMI of 40.0-44.9, adult E66.01; Z68.41 Knee pain, bilateral M25.561; M25.562 Chronicity: unspecified Leg pain, bilateral M79.604; M79.605 Seizure disorder G40.909 Asthma J45.909 Asthma complication type: uncomplicated Asthma persistence: unspecified Asthma severity: unspecified severity DVT prophylaxis Z29.9 (1) Hearing impaired Hearing loss type: unspecified Laterality: bilateral Qualified Code(s): H91.93 - Unspecified hearing loss, bilateral (2) Diabetes mellitus, type II Diabetes mellitus complication status: without complication Diabetes mellitus penitentiary insulin use: without terminal block assembler use Qualified Code(s): E11.9 - Type 2 diabetes mellitus without complications (3) Knee pain, bilateral Chronicity: unspecified Qualified Code(s): M25.561 - Pain in right knee; M25.562 - Pain in left knee (4) Hypertension Hypertension type: essential hypertension Qualified Code(s): I10 - Essential (primary) hypertension (5) Asthma Asthma complication type: uncomplicated Asthma persistence: unspecified Asthma severity: unspecified severity Qualified Code(s): J45.909 - Unspecified asthma, uncomplicated
[2020-09-11] MEDS: INSULIN GLARGINE SOLOSTAR 100 UNITS/ML 3 ML PEN SC SCH ×2 (09:34→20:10)
[2020-09-11] MEDS: INSULIN ASPART 100 UNITS/ML 3 ML PEN SC SCH ×4 (09:34→21:14)
[2020-09-12 07:47] LABS: Basophils # (auto) 0.03 K/uL (0-0.2); Basophils % (auto) 0.6 %; Eosinophils # (auto) 0.41 K/uL (0-0.5); Eosinophils % (auto) 8.4 %; Hematocrit (blood only) 38.7 % (37-47); Hemoglobin 11.8 g/dL (12.0-16.0); Immature Granulocytes # (auto) 0.01 K/uL (0.00-0.02); Immature Granulocytes % (auto) 0.2 %; Lymphocytes # (auto) 1.17 K/uL (1.2-3.4); Lymphocytes % (auto) 24.1 %; Mean Corpuscular Hemoglobin 27.4 pg (25-34); Mean Corpuscular Hgb Conc 30.5 g/dL (32-36); Monocytes # (auto) 0.38 K/uL (0.11-0.59); Monocytes % (auto) 7.8 %; Neutrophils # (auto) 2.86 K/uL (1.4-6.5); Neutrophils % (auto) 58.9 %; Platelet Count 183 K/uL (130-400); RDW Coefficient of Variation 14.8 % (11.5-14.5); RDW Standard Deviation 48.1 fL (36.4-46.3); White Blood Count 4.86 K/uL (4.8-10.8)
[2020-09-12 08:27] LABS: BUN Creatinine Ratio 33.1 (10-20); Calcium 9.2 mg/dl (8.5-10.1); Creatinine Clr Calc Pharmacy 62.7 ml/min; Est GFR (African American) 77.3; Est GFR (Non-African American) 66.7; Magnesium 2.3 mg/dl (1.8-2.4); Phosphorus 3.9 mg/dl (2.5-4.9); Potassium 3.8 mmol/L (3.5-5.1)
--- NOTE | 2020-09-12 08:30 | Hospitalist Progress Note ---
Date of Service September 12, 2020 Assessment & Plan (1) Ambulatory dysfunction: does not walk at home, uses power chair not safe to return home. boyfriend w/ whom she lives and 2 sons in agreement that she is not safe to return home at discharge. Case management helping with dispo (2) Intellectual disability: At least mild-moderate ID. Supportive care Seen by psych - determined that she lacks capacity for medical decision making Needs healthcare POA - one of her children would hopefully act on her behalf. (3) Hypokalemia: 11-12 replace with 40meq K-Cl checking Mg 11-13 Mg normal (4) Abdominal distension: Check CT abdomen/pelvis for further eval and to rule out mass (5) Venous stasis ulcers of both lower extremities: resolved. just severe stasis changes at this time. cont lasix 40mg daily Continue skin care, lotion, pressure offloading to prevent skin breakdown with pillows and repositioning (6) Cellulitis and abscess of leg: resolved. LLE. s/p 10-day course of IV/PO abx. abx now off. (7) Chronic respiratory failure with hypoxia: stable on home O2 amount - 2 L continuously. Obesity-hypoventilation syndrome likely cause of chronic resp failure. (8) Diabetes mellitus, type II: HbA1C 7.6%. holding oral agents. lantus/novolog while here. BSGs well controlled with basal insulin and ISS (9) Hypertension: cont home meds controlled (10) Hearing impaired: severe has assistive device in room to help w/ this (11) Morbid obesity with BMI of 40.0-44.9, adult: BMI 41.5 (12) Knee pain, bilateral: OA. Cont voltaren gel qid. (13) Leg pain, bilateral: dopplers neg for DVT. (14) Seizure disorder: No seizure activity during this admission, continue keppra 1000 mg BID, topamax 100 mg daily (15) Asthma: Stable, no exacerbation Continue albuterol inhaler prn (16) DVT prophylaxis: lovenox BID CODE: FULL Dispo - [facility] has no beds. Other referrals placed by CM. [facility] involved 09-10 [facility]) called to say a bed may be available next week Admission and Anticipated Discharge Date Admission Date: August 27, 2020 Subjective Patient wants to go home, but family states that patient can not take care of self and family also can not take care of her. Patient repeatedly stating, "I do not want to go to [facility]." Patient wants to be home for the holidays. She is afraid she is going to catch coronavirus if she goes to a rehab facility. Patient wants to stay in the hospital until we can find a rehab facility near by that can take her. Denies any pain, no nausea, tolerating her diet. Swelling is at baseline. Review of Systems Constitutional: no fever, no chills, no fatigue, no weakness, no anorexia, no weight loss and no weight gain Ear, Nose, Mouth, Throat: no nasal congestion, no sore throat and no dysphagia Respiratory: no cough and no dyspnea Cardiovascular: no chest pain, no dyspnea on exertion, no orthopnea and no palpitations Gastrointestinal: no abdominal pain, no nausea, no vomiting, no hematemesis, no dysphagia, no constipation, no diarrhea/loose stools, no blood in stools and no melena Genitourinary: no dysuria, no urinary frequency, no hematuria and no flank pain Musculoskeletal: no back pain, no joint pain, no myalgia and no muscle weakness Integumentary: no rash, no lesions, no skin ulcer, no erythema, no dry skin and no pruritus Neurologic: no falls, no localized weakness, no generalized weakness, no numbness, no paresthesia, no tremor(s) and no headache(s) Psychiatric: no depression, no suicidal ideation, no homicidal ideation and no anxiety Endocrine: no cold intolerance and no heat intolerance Hematologic / Lymphatic: no easy bleeding and no easy bruising Physical Exam Constitutional: well developed, well nourished and + morbidly obese; no acute distress Eyes: PERRL, conjunctivae normal, anicteric sclerae ENMT: Mouth: oral mucous membranes not dry Respiratory: normal respiratory effort; no respiratory distress and no labored breathing Auscultation: lungs clear to auscultation bilaterally; no crackles, no rales, no rhonchi and no wheezes Cardiovascular: Rate/Rhythm: regular rate and regular rhythm Heart Sounds: no murmur and no cardiac rub Vessels: normal peripheral pulses and radial pulses present; no JVD Extremities: + edema (2+ bilateral LE chronic lymphedema) Gastrointestinal (Abdomen): Inspection/Auscultation: abdomen normal to inspection, + abdomen distended (grossly distended) and normal bowel sounds Percussion/Palpation: abdomen soft; abdomen nontender, no guarding, abdomen not rigid and no hepatosplenomegaly Musculoskeletal: Head/Neck/Chest: normocephalic and head atraumatic Spine: no cervical spinal tenderness, no cervical muscular tenderness, no thoracic spinal tenderness and no lumbar spinal tenderness Skin: no rashes, warm and dry Neurologic: CN's II-XI intact bilaterally and moves all extremities Motor/Sensory: no tremor and no sensory deficit Psychiatric: Orientation: alert, oriented to person, oriented to place and oriented to time Apperance: appropriately groomed; not disheveled Affect: euthymic affect; no anxious affect and no tearful affect Genitourinary: no CVA tenderness Results & Data Results & Data ([facility]) Vital Signs (Past 12 Hours) Vital Signs Temp Pulse Resp BP Pulse Ox 09/12/20 07:27 36.9 C 73 14 120/78 100 09/12/20 00:07 36.5 C 76 14 124/79 93 Laboratory Results Abnormal lab results 09/11/20 09/11/20 09/11/20 Range/Units 12:19 17:18 20:40 Hgb (12.0-16.0) g/dL MCHC (32-36) g/dL RDW Std Deviation (36.4-46.3) fL RDW Coeff of Ewa (11.5-14.5) % MPV (7.4-10.4) fL Lymph # (Auto) (1.2-3.4) K/uL Carbon Dioxide (21-32) mmol/L Anion Gap (3-11) BUN (7-18) mg/dl BUN/Creatinine Ratio (10-20) Glucose (70-99) mg/dl POC Glucose 221 H 162 H 184 H (70-99) mg/dl 09/12/20 09/12/20 09/12/20 Range/Units 07:33 07:33 08:08 Hgb 11.8 L (12.0-16.0) g/dL MCHC 30.5 L (32-36) g/dL RDW Std Deviation 48.1 H (36.4-46.3) fL RDW Coeff of Ewa 14.8 H (11.5-14.5) % MPV 11.0 H (7.4-10.4) fL Lymph # (Auto) 1.17 L (1.2-3.4) K/uL Carbon Dioxide 36 H (21-32) mmol/L Anion Gap 2.0 L (3-11) BUN 30 H (7-18) mg/dl BUN/Creatinine Ratio 33.1 H (10-20) Glucose 116 H (70-99) mg/dl POC Glucose 126 H (70-99) mg/dl Medications Administered Current Inpatient Medications Aspirin (Aspirin 81 Mg Ectab) 81 mg PO DAILY MIGUEL Stop: 09/26/20 08:59 Last Admin: 09/11/20 08:36 Dose: 81 mg Documented by: Atorvastatin Calcium (Atorvastatin 10 Mg Tab) 10 mg PO DAILY MIGUEL Stop: 09/26/20 08:59 Last Admin: 09/11/20 08:37 Dose: 10 mg Documented by: Cyanocobalamin (Cyanocobalamin 500 Mcg Tablet (Vitamin B-12)) 1,000 mcg PO DAILY MIGUEL Stop: 09/26/20 08:59 Last Admin: 09/11/20 08:36 Dose: 1,000 mcg Documented by: Dextrose (Dextrose 50% 50 Ml Syringe) 25 - 50 ml IV UD PRN; Protocol PRN Reason: Hypoglycemia Protocol Stop: 09/26/20 07:13 Diclofenac Sodium (Diclofenac Sod 1% Gel 100 Gm Tube) 4 gm EXT QID MIGUEL Stop: 10/03/20 16:59 Last Admin: 09/11/20 20:08 Dose: 4 gm Documented by: Enoxaparin Sodium (Enoxaparin Inj 40 Mg/0.4 Ml Syr) 40 mg SQ Q12 MIGUEL Stop: 09/26/20 08:59 Last Admin: 09/11/20 20:06 Dose: 40 mg Documented by: Ferrous Sulfate (Ferrous Sulfate 325 Mg Tab) 325 mg PO DAILY MIGUEL Stop: 09/26/20 08:59 Last Admin: 09/11/20 08:36 Dose: 325 mg Documented by: Furosemide (Furosemide 40 Mg Tab) 40 mg PO QAM MIGUEL Stop: 09/26/20 08:59 Last Admin: 09/11/20 08:36 Dose: 40 mg Documented by: Glucagon (Glucagon For Inj 1 Mg Vial) 1 mg SQ UD PRN; Protocol PRN Reason: Hypoglycemia Protocol Stop: 09/26/20 07:13 Glucose (Glucose 10 Tabs/Tube) 4 - 8 tabs PO UD PRN; Protocol PRN Reason: Hypoglycemia Protocol Stop: 09/26/20 07:13 Glucose (Glucose 40% Gel 15 Gm Tube) 15 - 30 gm PO UD PRN; Protocol PRN Reason: Hypoglycemia Protocol Stop: 09/26/20 07:13 Insulin Aspart (Insulin Aspart 100 Units/Ml 3 Ml Pen) 0 units SC ACHS MIGUEL Stop: 09/26/20 07:29 Last Admin: 09/11/20 21:14 Dose: 3 units Documented by: Insulin Glargine (Insulin Glargine Solostar 100 Units/Ml 3 Ml Pen) 17 units SC BID MIGUEL Stop: 10/07/20 20:59 Last Admin: 09/11/20 20:10 Dose: 17 units Documented by: Levetiracetam (Levetiracetam 500 Mg Tab) 1,000 mg PO BID MIGUEL Stop: 09/26/20 08:59 Last Admin: 09/11/20 20:07 Dose: 1,000 mg Documented by: Metoprolol Succinate (Metoprolol Succ 50mg Ext Rel Tab) 50 mg PO DAILY MIGUEL Stop: 09/26/20 08:59 Last Admin: 09/11/20 08:37 Dose: 50 mg Documented by: Miscellaneous (Carbohydrates For Hypoglycemia ) 15 - 30 gm PO UD PRN PRN Reason: Hypoglycemia Protocol Stop: 09/26/20 07:13 Modafinil (Modafinil 100 Mg Tab) 100 mg PO DAILY MIGUEL Stop: 09/26/20 08:59 Last Admin: 09/11/20 08:36 Dose: 100 mg Documented by: Multi-Ingredient Cream (Eucerin Cr 120 Gm Jar) 1 appln EXT BID PRN PRN Reason: Dryness Stop: 10/01/20 15:38 Last Admin: 09/06/20 09:11 Dose: 1 appln Documented by: Nystatin (Nystatin Powder 15gm Btl) 1 appln EXT BID MIGUEL Stop: 09/26/20 08:59 Last Admin: 09/11/20 20:07 Dose: 1 appln Documented by: Oxycodone HCl (Oxycodone Hcl Ir 5 Mg Tab (Immediate Release)) 5 mg PO Q8H PRN PRN Reason: Pain Stop: 09/17/20 09:26 Spironolactone (Spironolactone 12.5 Mg Tab) 12.5 mg PO DAILY [facility] Stop: 09/26/20 08:59 Last Admin: 09/11/20 08:36 Dose: 12.5 mg Documented by: Topiramate (Topiramate 100 Mg Tab) 100 mg PO QAM MIGUEL Stop: 09/26/20 08:59 Last Admin: 09/11/20 08:37 Dose: 100 mg Documented by: PG Care Time/CCT Total # of Minutes Spent Total Time Spent with Patient: Total time spent is greater than 50% in coordination of care (as documented) at patient's floor/unit and/or counseling patient: Coding Level of Care Code 76290 Subseq Hosp Care Lvl 3 Diagnoses Ambulatory dysfunction R26.2 Intellectual disability F79 Hypokalemia E87.6 Abdominal distension R14.0 Venous stasis ulcers of both lower extremities I83.019; I83.029; L97.919; L97.929 Cellulitis and abscess of leg L03.119; L02.419 Chronic respiratory failure with hypoxia J96.11 Diabetes mellitus, type II E11.9 Diabetes mellitus complication status: without complication Diabetes mellitus intermediate designer insulin use: without fpc use Hypertension I10 Hypertension type: essential hypertension Hearing impaired H91.93 Hearing loss type: unspecified Laterality: bilateral Morbid obesity with BMI of 40.0-44.9, adult E66.01; Z68.41 Knee pain, bilateral M25.561; M25.562 Chronicity: unspecified Leg pain, bilateral M79.604; M79.605 Seizure disorder G40.909 Asthma J45.909 Asthma complication type: uncomplicated Asthma persistence: unspecified Asthma severity: unspecified severity DVT prophylaxis Z29.9 (1) Hearing impaired Hearing loss type: unspecified Laterality: bilateral Qualified Code(s): H91.93 - Unspecified hearing loss, bilateral (2) Diabetes mellitus, type II Diabetes mellitus complication status: without complication Diabetes mellitus intermediate designer insulin use: without fpc use Qualified Code(s): E11.9 - Type 2 diabetes mellitus without complications (3) Knee pain, bilateral Chronicity: unspecified Qualified Code(s): M25.561 - Pain in right knee; M25.562 - Pain in left knee (4) Hypertension Hypertension type: essential hypertension Qualified Code(s): I10 - Essential (primary) hypertension (5) Asthma Asthma complication type: uncomplicated Asthma persistence: unspecified Asthma severity: unspecified severity Qualified Code(s): J45.909 - Unspecified asthma, uncomplicated
[2020-09-12] MEDS: ATORVASTATIN 10 MG TAB PO SCH (08:59)
[2020-09-12] MEDS: FERROUS SULFATE 325 MG TAB PO SCH (09:00)
[2020-09-12] MEDS: levETIRAcetam 500 MG TAB PO SCH ×2 (09:00→20:47)
[2020-09-12] MEDS: FUROSEMIDE 40 MG TAB PO SCH (09:00)
[2020-09-12] MEDS: ASPIRIN 81 MG ECTAB PO SCH (09:00)
[2020-09-12] MEDS: SPIRONOLACTONE 12.5 MG TAB PO SCH (09:00)
[2020-09-12] MEDS: METOPROLOL SUCC 50MG EXT REL TAB PO SCH (09:00)
[2020-09-12] MEDS: CYANOCOBALAMIN 500 MCG TABLET (VITAMIN B-12) PO SCH (09:01)
[2020-09-12] MEDS: TOPIRAMATE 100 MG TAB PO SCH (09:01)
[2020-09-12] MEDS: modafiniL 100 MG TAB PO SCH (09:01)
[2020-09-12] MEDS: ENOXAPARIN INJ 40 MG/0.4 ML SYR SQ SCH ×2 (09:01→20:47)
[2020-09-12] MEDS: NYSTATIN POWDER 15GM BTL EXT SCH ×2 (09:01→20:48)
[2020-09-12] MEDS: DICLOFENAC SOD 1% GEL 100 GM TUBE EXT SCH ×4 (09:09→20:49)
[2020-09-12] MEDS: INSULIN GLARGINE SOLOSTAR 100 UNITS/ML 3 ML PEN SC SCH ×2 (09:10→20:50)
[2020-09-12] MEDS: INSULIN ASPART 100 UNITS/ML 3 ML PEN SC SCH ×4 (09:11→20:50)
--- NOTE | 2020-09-12 16:34 | CT Scan Report ---
ABDOMEN AND PELVIS CT WITHOUT CONTRAST CT DOSE: 1039.57 mGycm HISTORY: Acute generalized abdominal pain with abdominal distention abdominal distension TECHNIQUE: Multiaxial CT images of the abdomen and pelvis were performed without contrast. A dose lo wering technique was utilized adhering to the principles of ALARA. COMPARISON STUDY: CT abdomen and pelvis 11/28/2006 FINDINGS: Limited exam secondary to patient positioning and lack of contrast. The lung bases are generally nancy r. There is no pneumatosis or pneumoperitoneum. The imaged inferior cardiac chambers are moderately e nlarged. Small to moderate pericardial effusion. Spleen measures the upper limits of normal in size. Limited evaluation of the solid abdominal organs without the use of IV contrast. The pancreas and adr enal glands are unremarkable. Dense material within the gallbladder lumen may reflect gallbladder slu dge. There is a stone within the gallbladder neck without CT evidence of acute cholecystitis. No bili cassie ductal dilation. Unremarkable liver. No urolith or obstructive uropathy. There is a tiny diverticulum along the left lateral wall of the u rinary bladder. Hysterectomy. Calcified plaque the abdominal aorta without aneurysm. Mildly prominent periaortic, iliac chain and pelvic sidewall lymph nodes are present measuring up to 9 mm. Small hiatal hernia. No bowel obstruction or bowel wall thickening. Colonic diverticulosis without ac aaron diverticulitis. There is mild fecal retention. Lipoma of the ileocecal valve, 3.5 cm. Normal appe ndix. Scattered fat filled periumbilical hernias are noted, largest of which involves the left parace ntral infraumbilical abdominal wall, diastases of 4.0 cm. Mild nonspecific subcutaneous edema of the anterior abdomen. The bones appear intact. No acute fracture identified. Probable hemangioma involves the T11 and L1 vertebral bodies. Dextroscoliosis of the thoracolumbar junction. IMPRESSION: 1. No bowel obstruction or bowel wall thickening. 2. Colonic diverticulosis without acute diverticulitis. 3. Cholelithiasis. 4. Fat filled ventral abdominal wall hernias including a moderate sized hernia of the left lower quad rant infraumbilical abdominal wall 5. Cardiomegaly with small to moderate pericardial effusion. 6. Additional findings as above. ACT 112: Negative or not required by law. The above report was generated using voice recognition software. It may contain grammatical, syntax o r spelling errors. Electronically signed by: Hung Camejo M.D. 09/12/2020 4:32 PM
[2020-09-13 06:26] LABS: Hematocrit (blood only) 39.3 % (37-47); Hemoglobin 12.1 g/dL (12.0-16.0); Mean Corpuscular Hemoglobin 27.9 pg (25-34); Mean Corpuscular Hgb Conc 30.8 g/dL (32-36); Mean Corpuscular Volume 90.6 fL (80-100); Mean Platelet Volume 10.9 fL (7.4-10.4); Platelet Count 179 K/uL (130-400); RDW Standard Deviation 49.4 fL (36.4-46.3); Red Blood Count 4.34 M/uL (4.2-5.4); White Blood Count 5.46 K/uL (4.8-10.8)
[2020-09-13 07:00] LABS: BUN Creatinine Ratio 31.3 (10-20); Calcium 9.1 mg/dl (8.5-10.1); Creatinine Clr Calc Pharmacy 53.4 ml/min; Est GFR (African American) 63.7; Potassium 3.7 mmol/L (3.5-5.1)
--- NOTE | 2020-09-13 07:22 | Hospitalist Progress Note ---
Date of Service September 13, 2020 Assessment & Plan (1) ADRYAN (acute kidney injury): Baseline Cr 0.67 up to 1.08 today BUN elevated as well Likely she wasn't really taking the lasix 40mg PO daily at home -- that dose is too high Will hold the lasix for now When we resume for maintenance of her lymphedema, will start lasix 20mg PO daily (2) Ambulatory dysfunction: does not walk at home, uses power chair not safe to return home. boyfriend w/ whom she lives and 2 sons in agreement that she is not safe to return home at discharge. Case management helping with dispo (3) Intellectual disability: At least mild-moderate ID. Supportive care Seen by psych - determined that she lacks capacity for medical decision making Needs healthcare POA - one of her children would hopefully act on her behalf. (4) Lymphedema of both lower extremities: resolved. just severe stasis changes at this time. decreased lasix from 40mg to 20mg daily Continue skin care, lotion, pressure offloading to prevent skin breakdown with pillows and repositioning (5) Hypokalemia: 11-12 replace with 40meq K-Cl checking Mg 11-13 Mg normal 11-14 resolved (6) Abdominal distension: 11-13 firm distended abdomen, Check CT abdomen/pelvis for further eval and to rule out mass 11-14 benign abdominal ventral hernias present (7) Cellulitis and abscess of leg: resolved. LLE. s/p 10-day course of IV/PO abx. abx now off. (8) Chronic respiratory failure with hypoxia: stable on home O2 amount - 2 L continuously. Obesity-hypoventilation syndrome likely cause of chronic resp failure. (9) Diabetes mellitus, type II: HbA1C 7.6%. holding oral agents. lantus/novolog while here. BSGs well controlled with basal insulin and ISS (10) Hypertension: cont home meds controlled (11) Hearing impaired: severe has assistive device in room to help w/ this (12) Morbid obesity with BMI of 40.0-44.9, adult: BMI 41.5 (13) Knee pain, bilateral: OA. Cont voltaren gel qid. (14) Leg pain, bilateral: dopplers neg for DVT. (15) Seizure disorder: No seizure activity during this admission, continue keppra 1000 mg BID, topamax 100 mg daily (16) Asthma: Stable, no exacerbation Continue albuterol inhaler prn (17) DVT prophylaxis: lovenox BID CODE: FULL Dispo - [facility] has no beds. Other referrals placed by CM. [facility] involved 09-10 [facility] ([facility] called to say a bed may be available next week Admission and Anticipated Discharge Date Admission Date: August 27, 2020 Subjective Patient had abdominal distension yesterday, no vomiting, no diarrhea. Slept well overnight, no issues. This morning eating breakfast, no sob, no chest pain. No seizure activity. Tolerating meds. No complaints. Continuing to focus on discharge planning. Patient continues to worry she will catch COVID at a rehab facility -- discussed that is possible at all rehab facilities. Additionally, reiterated to patient that we need to go with whatever rehab facility has a bed the soonest, so that we don't delay her eventually getting home. She is beginning to understand that [facility] may be the first available, which would make it the best option. She was VERY happy that her CT did not show any concerning masses, only benign hernias. Review of Systems Constitutional: no fever, no chills, no fatigue, no weakness, no anorexia, no weight loss and no weight gain Ear, Nose, Mouth, Throat: no nasal congestion, no sore throat and no dysphagia Respiratory: no cough and no dyspnea Cardiovascular: no chest pain, no dyspnea on exertion, no orthopnea and no palpitations Gastrointestinal: no abdominal pain, no nausea, no vomiting, no hematemesis, no dysphagia, no constipation, no diarrhea/loose stools, no blood in stools and no melena Genitourinary: no dysuria, no urinary frequency, no hematuria and no flank pain Musculoskeletal: no back pain, no joint pain, no myalgia and no muscle weakness Integumentary: no rash, no lesions, no skin ulcer, no erythema, no dry skin and no pruritus Neurologic: no falls, no localized weakness, no generalized weakness, no numbness, no paresthesia, no tremor(s) and no headache(s) Psychiatric: no depression, no suicidal ideation, no homicidal ideation and no anxiety Endocrine: no cold intolerance and no heat intolerance Hematologic / Lymphatic: no easy bleeding and no easy bruising Physical Exam Constitutional: well developed, well nourished and + morbidly obese; no acute distress Eyes: PERRL, conjunctivae normal, anicteric sclerae ENMT: Mouth: oral mucous membranes not dry Respiratory: normal respiratory effort; no respiratory distress and no labored breathing Auscultation: lungs clear to auscultation bilaterally; no crackles, no rales, no rhonchi and no wheezes Cardiovascular: Rate/Rhythm: regular rate and regular rhythm Heart Sounds: no murmur and no cardiac rub Vessels: normal peripheral pulses and radial pulses present; no JVD Extremities: + edema (2+ bilateral LE chronic lymphedema) Gastrointestinal (Abdomen): Inspection/Auscultation: abdomen normal to inspection, + abdomen distended (grossly distended) and normal bowel sounds Percussion/Palpation: abdomen soft; abdomen nontender, no guarding, abdomen not rigid and no hepatosplenomegaly Musculoskeletal: Head/Neck/Chest: normocephalic and head atraumatic Spine: no cervical spinal tenderness, no cervical muscular tenderness, no thoracic spinal tenderness and no lumbar spinal tenderness Skin: + erythema (bilateral shins red patches with hyperkeratotic and bullous lesions) Neurologic: CN's II-XI intact bilaterally and moves all extremities Motor/Sensory: no tremor and no sensory deficit Psychiatric: Orientation: alert, oriented to person, oriented to place and oriented to time Apperance: appropriately groomed; not disheveled Affect: euthymic affect; no anxious affect and no tearful affect Genitourinary: no CVA tenderness Results & Data Results & Data ([facility]) Vital Signs (Past 12 Hours) Vital Signs Temp Pulse Resp BP Pulse Ox 09/12/20 23:10 37 C 71 20 115/72 100 Laboratory Results Abnormal lab results 09/12/20 09/12/20 09/12/20 Range/Units 07:33 07:33 08:08 Hgb 11.8 L (12.0-16.0) g/dL MCHC 30.5 L (32-36) g/dL RDW Std Deviation 48.1 H (36.4-46.3) fL RDW Coeff of Ewa 14.8 H (11.5-14.5) % MPV 11.0 H (7.4-10.4) fL Lymph # (Auto) 1.17 L (1.2-3.4) K/uL Carbon Dioxide 36 H (21-32) mmol/L Anion Gap 2.0 L (3-11) BUN 30 H (7-18) mg/dl BUN/Creatinine Ratio 33.1 H (10-20) Glucose 116 H (70-99) mg/dl POC Glucose 126 H (70-99) mg/dl 09/12/20 09/12/20 09/12/20 Range/Units 12:18 17:12 20:33 Hgb (12.0-16.0) g/dL MCHC (32-36) g/dL RDW Std Deviation (36.4-46.3) fL RDW Coeff of Ewa (11.5-14.5) % MPV (7.4-10.4) fL Lymph # (Auto) (1.2-3.4) K/uL Carbon Dioxide (21-32) mmol/L Anion Gap (3-11) BUN (7-18) mg/dl BUN/Creatinine Ratio (10-20) Glucose (70-99) mg/dl POC Glucose 154 H 141 H 178 H (70-99) mg/dl 09/13/20 09/13/20 Range/Units 06:17 06:17 Hgb (12.0-16.0) g/dL MCHC 30.8 L (32-36) g/dL RDW Std Deviation 49.4 H (36.4-46.3) fL RDW Coeff of Ewa 15.0 H (11.5-14.5) % MPV 10.9 H (7.4-10.4) fL Lymph # (Auto) (1.2-3.4) K/uL Carbon Dioxide 35 H (21-32) mmol/L Anion Gap (3-11) BUN 34 H (7-18) mg/dl BUN/Creatinine Ratio 31.3 H (10-20) Glucose 151 H (70-99) mg/dl POC Glucose (70-99) mg/dl Medications Administered Current Inpatient Medications Aspirin (Aspirin 81 Mg Ectab) 81 mg PO DAILY MIGUEL Stop: 09/26/20 08:59 Last Admin: 09/12/20 09:00 Dose: 81 mg Documented by: Atorvastatin Calcium (Atorvastatin 10 Mg Tab) 10 mg PO DAILY MIGUEL Stop: 09/26/20 08:59 Last Admin: 09/12/20 08:59 Dose: 10 mg Documented by: Cyanocobalamin (Cyanocobalamin 500 Mcg Tablet (Vitamin B-12)) 1,000 mcg PO DAILY MIGUEL Stop: 09/26/20 08:59 Last Admin: 09/12/20 09:01 Dose: 1,000 mcg Documented by: Dextrose (Dextrose 50% 50 Ml Syringe) 25 - 50 ml IV UD PRN; Protocol PRN Reason: Hypoglycemia Protocol Stop: 09/26/20 07:13 Diclofenac Sodium (Diclofenac Sod 1% Gel 100 Gm Tube) 4 gm EXT QID MIGUEL Stop: 10/03/20 16:59 Last Admin: 09/12/20 20:49 Dose: 4 gm Documented by: Enoxaparin Sodium (Enoxaparin Inj 40 Mg/0.4 Ml Syr) 40 mg SQ Q12 MIGUEL Stop: 09/26/20 08:59 Last Admin: 09/12/20 20:47 Dose: 40 mg Documented by: Ferrous Sulfate (Ferrous Sulfate 325 Mg Tab) 325 mg PO DAILY MIGUEL Stop: 09/26/20 08:59 Last Admin: 09/12/20 09:00 Dose: 325 mg Documented by: Furosemide (Furosemide 40 Mg Tab) 40 mg PO QAM MIGUEL Stop: 09/26/20 08:59 Last Admin: 09/12/20 09:00 Dose: 40 mg Documented by: Glucagon (Glucagon For Inj 1 Mg Vial) 1 mg SQ UD PRN; Protocol PRN Reason: Hypoglycemia Protocol Stop: 09/26/20 07:13 Glucose (Glucose 10 Tabs/Tube) 4 - 8 tabs PO UD PRN; Protocol PRN Reason: Hypoglycemia Protocol Stop: 09/26/20 07:13 Glucose (Glucose 40% Gel 15 Gm Tube) 15 - 30 gm PO UD PRN; Protocol PRN Reason: Hypoglycemia Protocol Stop: 09/26/20 07:13 Insulin Aspart (Insulin Aspart 100 Units/Ml 3 Ml Pen) 0 units SC ACHS MIGUEL Stop: 09/26/20 07:29 Last Admin: 09/12/20 20:50 Dose: 2 units Documented by: Insulin Glargine (Insulin Glargine Solostar 100 Units/Ml 3 Ml Pen) 17 units SC BID MIGUEL Stop: 10/07/20 20:59 Last Admin: 09/12/20 20:50 Dose: 17 units Documented by: Levetiracetam (Levetiracetam 500 Mg Tab) 1,000 mg PO BID MIGUEL Stop: 09/26/20 08:59 Last Admin: 09/12/20 20:47 Dose: 1,000 mg Documented by: Metoprolol Succinate (Metoprolol Succ 50mg Ext Rel Tab) 50 mg PO DAILY MIGUEL Stop: 09/26/20 08:59 Last Admin: 09/12/20 09:00 Dose: 50 mg Documented by: Miscellaneous (Carbohydrates For Hypoglycemia ) 15 - 30 gm PO UD PRN PRN Reason: Hypoglycemia Protocol Stop: 09/26/20 07:13 Modafinil (Modafinil 100 Mg Tab) 100 mg PO DAILY MIGUEL Stop: 09/26/20 08:59 Last Admin: 09/12/20 09:01 Dose: 100 mg Documented by: Multi-Ingredient Cream (Eucerin Cr 120 Gm Jar) 1 appln EXT BID PRN PRN Reason: Dryness Stop: 10/01/20 15:38 Last Admin: 09/06/20 09:11 Dose: 1 appln Documented by: Nystatin (Nystatin Powder 15gm Btl) 1 appln EXT BID MIGUEL Stop: 09/26/20 08:59 Last Admin: 09/12/20 20:48 Dose: 1 appln Documented by: Oxycodone HCl (Oxycodone Hcl Ir 5 Mg Tab (Immediate Release)) 5 mg PO Q8H PRN PRN Reason: Pain Stop: 09/17/20 09:26 Spironolactone (Spironolactone 12.5 Mg Tab) 12.5 mg PO DAILY MIGUEL Stop: 09/26/20 08:59 Last Admin: 09/12/20 09:00 Dose: 12.5 mg Documented by: Topiramate (Topiramate 100 Mg Tab) 100 mg PO QAM MIGUEL Stop: 09/26/20 08:59 Last Admin: 09/12/20 09:01 Dose: 100 mg Documented by: Results / Data Diagnostics Radiology: 09-12 CT a/p IMPRESSION: 1. No bowel obstruction or bowel wall thickening. 2. Colonic diverticulosis without acute diverticulitis. 3. Cholelithiasis. 4. Fat filled ventral abdominal wall hernias including a moderate sized hernia of the left lower quadrant infraumbilical abdominal wall 5. Cardiomegaly with small to moderate pericardial effusion. 6. Additional findings as above. PG Care Time/CCT Total # of Minutes Spent Total Time Spent with Patient: Total time spent is greater than 50% in coordination of care (as documented) at patient's floor/unit and/or counseling patient: Coding Level of Care Code 01520 Subseq Hosp Care Lvl 3 Diagnoses ADRYAN (acute kidney injury) N17.9 Ambulatory dysfunction R26.2 Intellectual disability F79 Lymphedema of both lower extremities I89.0 Hypokalemia E87.6 Abdominal distension R14.0 Cellulitis and abscess of leg L03.119; L02.419 Chronic respiratory failure with hypoxia J96.11 Diabetes mellitus, type II E11.9 Diabetes mellitus complication status: without complication Diabetes mellitus chcf insulin use: without termite treater use Hypertension I10 Hypertension type: essential hypertension Hearing impaired H91.93 Hearing loss type: unspecified Laterality: bilateral Morbid obesity with BMI of 40.0-44.9, adult E66.01; Z68.41 Knee pain, bilateral M25.561; M25.562 Chronicity: unspecified Leg pain, bilateral M79.604; M79.605 Seizure disorder G40.909 Asthma J45.909 Asthma complication type: uncomplicated Asthma persistence: unspecified Asthma severity: unspecified severity DVT prophylaxis Z29.9 (1) Hearing impaired Hearing loss type: unspecified Laterality: bilateral Qualified Code(s): H91.93 - Unspecified hearing loss, bilateral (2) Diabetes mellitus, type II Diabetes mellitus complication status: without complication Diabetes mellitus termite treater insulin use: without chcf use Qualified Code(s): E11.9 - Type 2 diabetes mellitus without complications (3) Knee pain, bilateral Chronicity: unspecified Qualified Code(s): M25.561 - Pain in right knee; M25. 562 - Pain in left knee (4) Hypertension Hypertension type: essential hypertension Qualified Code(s): I10 - Essential (primary) hypertension (5) Asthma Asthma complication type: uncomplicated Asthma persistence: unspecified Asthma severity: unspecified severity Qualified Code(s): J45.909 - Unspecified asthma, uncomplicated
[2020-09-13] MEDS: INSULIN GLARGINE SOLOSTAR 100 UNITS/ML 3 ML PEN SC SCH ×2 (08:55→22:16)
[2020-09-13] MEDS: INSULIN ASPART 100 UNITS/ML 3 ML PEN SC SCH ×4 (08:56→22:16)
[2020-09-13] MEDS: ENOXAPARIN INJ 40 MG/0.4 ML SYR SQ SCH ×2 (08:57→22:10)
[2020-09-13] MEDS: SPIRONOLACTONE 12.5 MG TAB PO SCH (08:59)
[2020-09-13] MEDS: modafiniL 100 MG TAB PO SCH (08:59)
[2020-09-13] MEDS: ATORVASTATIN 10 MG TAB PO SCH (08:59)
[2020-09-13] MEDS: levETIRAcetam 500 MG TAB PO SCH ×2 (08:59→21:54)
[2020-09-13] MEDS: TOPIRAMATE 100 MG TAB PO SCH (08:59)
[2020-09-13] MEDS: CYANOCOBALAMIN 500 MCG TABLET (VITAMIN B-12) PO SCH (08:59)
[2020-09-13] MEDS: ASPIRIN 81 MG ECTAB PO SCH (08:59)
[2020-09-13] MEDS: METOPROLOL SUCC 50MG EXT REL TAB PO SCH (08:59)
[2020-09-13] MEDS: FUROSEMIDE 40 MG TAB PO SCH (08:59)
[2020-09-13] MEDS: FERROUS SULFATE 325 MG TAB PO SCH (08:59)
[2020-09-13] MEDS: NYSTATIN POWDER 15GM BTL EXT SCH ×2 (09:00→22:11)
[2020-09-13] MEDS: DICLOFENAC SOD 1% GEL 100 GM TUBE EXT SCH ×4 (09:01→22:11)
[2020-09-13] MEDS ORDERED: SODIUM CHLORIDE 0.9% 1000ML 500 ML IV ONE (13:19)
[2020-09-14 06:02] LABS: Hemoglobin 10.6 g/dL (12.0-16.0); Mean Corpuscular Hemoglobin 27.6 pg (25-34); Mean Corpuscular Hgb Conc 30.3 g/dL (32-36); Mean Corpuscular Volume 91.1 fL (80-100); Mean Platelet Volume 10.7 fL (7.4-10.4); Platelet Count 167 K/uL (130-400); RDW Coefficient of Variation 14.8 % (11.5-14.5); RDW Standard Deviation 49.3 fL (36.4-46.3); Red Blood Count 3.84 M/uL (4.2-5.4); White Blood Count 4.63 K/uL (4.8-10.8)
[2020-09-14 06:39] LABS: BUN Creatinine Ratio 36.3 (10-20); Calcium 8.8 mg/dl (8.5-10.1); Est GFR (African American) 94.4; Est GFR (Non-African American) 81.5; Magnesium 2.4 mg/dl (1.8-2.4); Phosphorus 4.4 mg/dl (2.5-4.9); Potassium 3.8 mmol/L (3.5-5.1)
[2020-09-14] MEDS: INSULIN ASPART 100 UNITS/ML 3 ML PEN SC SCH ×4 (09:36→21:19)
[2020-09-14] MEDS: INSULIN GLARGINE SOLOSTAR 100 UNITS/ML 3 ML PEN SC SCH ×2 (09:36→21:19)
[2020-09-14] MEDS: METOPROLOL SUCC 50MG EXT REL TAB PO SCH (09:41)
[2020-09-14] MEDS: NYSTATIN POWDER 15GM BTL EXT SCH ×2 (09:41→21:19)
[2020-09-14] MEDS: DICLOFENAC SOD 1% GEL 100 GM TUBE EXT SCH ×4 (09:42→21:20)
[2020-09-14] MEDS: levETIRAcetam 500 MG TAB PO SCH ×2 (09:50→22:02)
[2020-09-14] MEDS: ATORVASTATIN 10 MG TAB PO SCH (09:50)
[2020-09-14] MEDS: FERROUS SULFATE 325 MG TAB PO SCH (09:50)
[2020-09-14] MEDS: SPIRONOLACTONE 12.5 MG TAB PO SCH (09:50)
[2020-09-14] MEDS: ENOXAPARIN INJ 40 MG/0.4 ML SYR SQ SCH ×2 (09:50→22:01)
[2020-09-14] MEDS: TOPIRAMATE 100 MG TAB PO SCH (09:50)
[2020-09-14] MEDS: ASPIRIN 81 MG ECTAB PO SCH (09:50)
[2020-09-14] MEDS: CYANOCOBALAMIN 500 MCG TABLET (VITAMIN B-12) PO SCH (09:50)
[2020-09-14] MEDS: modafiniL 100 MG TAB PO SCH (09:58)
--- NOTE | 2020-09-14 10:19 | Hospitalist Progress Note ---
Date of Service September 14, 2020 Assessment & Plan (1) Anxiety: Long conversation with patient about going to rehab. Patient still expressing fears: [facility] [place] far from home. Afraid they will put her in a room with someone who has COVID. Afraid she will miss the holidays with her family. Worried that her social security checks are not being cashed. Worried her bills are not being paid and that she is going to lose her home. States she is mad at her family for not bringing her home -- she thinks they are abandoning her. Constantly reiterated to patient to be positive: She could get stronger and go home from rehab in a couple weeks. Assured her that the people at rehab are nice and are going to help her. Assured her that they do not room COVID patients with non-COVID patients. Reminded her that being mad at her family is not going to change her sit uation. Reminded her that her family loves her and wants the best for her -- they just can not take care of her at home. Stressed to patient that she needs to go to whichever rehab facility has a room first, which will help her to get home sooner. (2) ADRYAN (acute kidney injury): Baseline Cr 0.67 11-14 Cr up to 1.08 today BUN elevated as well Likely she wasn't really taking the lasix 40mg PO daily at home -- that dose is too high Will hold the lasix for now, give 500ml bolus 11-15 Cr 0.78, ADRYAN resolved Resume lasix for maintenance of her lymphedema, but decrease to lasix 20mg PO daily (3) Ambulatory dysfunction: does not walk at home, uses power chair not safe to return home. boyfriend w/ whom she lives and 2 sons in agreement that she is not safe to return home at discharge. Case management helping with dispo (4) Intellectual disability: At least mild-moderate ID. Supportive care Seen by psych - determined that she lacks capacity for medical decision making Needs healthcare POA - one of her children would hopefully act on her behalf. (5) Lymphedema of both lower extremities: severe stasis changes at this time decreased lasix from 40mg to 20mg daily Continue skin care, lotion, pressure offloading to prevent skin breakdown with pillows and repositioning (6) Hypokalemia: 09-11 replace with 40meq K-Cl checking Mg -13 Mg normal - resolved (7) Abdominal distension: 09-12 firm distended abdomen, Check CT abdomen/pelvis for further eval and to rule out mass - benign abdominal ventral hernias present (8) Cellulitis and abscess of leg: resolved. LLE. s/p 10-day course of IV/PO abx. abx now off. (9) Chronic respiratory failure with hypoxia: stable on home O2 amount - 2 L continuously. Obesity-hypoventilation syndrome likely cause of chronic resp failure. (10) Diabetes mellitus, type II: HbA1C 7.6%. holding oral agents. lantus/novolog while here. 09-14 increased levemir to 18 units BID from 17 units BID (11) Hypertension: cont home meds controlled (12) Hearing impaired: severe has assistive device in room to help w/ this (13) Morbid obesity with BMI of 40.0-44.9, adult: BMI 41.5 (14) Knee pain, bilateral: OA. Cont voltaren gel qid. (15) Leg pain, bilateral: dopplers neg for DVT. (16) Seizure disorder: No seizure activity during this admission, continue keppra 1000 mg BID, topamax 100 mg daily (17) Asthma: Stable, no exacerbation Continue albuterol inhaler prn (18) DVT prophylaxis: lovenox BID CODE: FULL Dispo - [facility] has no beds. Other referrals placed by CM. [facility] involved 09-10 Jeri En[facility] ([facility]) called to say a bed may be available next week Admission and Anticipated Discharge Date Admission Date: August 27, 2020 Subjective Gave 500ml bolus yesterday for ADRYAN and held her lasix. Denies sob or worsening edema. Denies headache. No complaints. No seizures. Long conversation with patient about going to rehab. Patient still expressing fears -- [facility] is too far from home. Afraid they will put her in a room with someone who has COVID. Afraid she will miss the holidays with her family. Worried that her social security checks are not being cashed. Worried her bills are not being paid and that she is going to lose her home. States she is mad at her family for not bringing her home -- she thinks they are abandoning her. Constantly reiterated to patient to be positive -- that she could get stronger and go home from rehab in a couple weeks. Assured her that the people at rehab are nice and are going to help her. Assured her that they do not room COVID patients with non-COVID patients. Reminded her that being mad at her family is not going to change her situation. Reminded her that her family loves her and wants the best for her -- they can not take care of her at home. Stressed to patient that she needs to go to whichever rehab facility has a room first, which will help her to get home sooner. Patient states that her boyfriend has not been calling -- she doesn't know his phone number to call him. Review of Systems Constitutional: no fever, no chills, no fatigue, no weakness, no anorexia, no weight loss and no weight gain Ear, Nose, Mouth, Throat: no nasal congestion, no sore throat and no dysphagia Respiratory: no cough and no dyspnea Cardiovascular: no chest pain, no dyspnea on exertion, no orthopnea and no palpitations Gastrointestinal: no abdominal pain, no nausea, no vomiting, no hematemesis, no dysphagia, no constipation, no diarrhea/loose stools, no blood in stools and no melena Genitourinary: no dysuria, no urinary frequency, no hematuria and no flank pain Musculoskeletal: no back pain, no joint pain, no myalgia and no muscle weakness Integumentary: no rash, no lesions, no skin ulcer, no erythema, no dry skin and no pruritus Neurologic: no falls, no localized weakness, no generalized weakness, no numbness, no paresthesia, no tremor(s) and no headache(s) Psychiatric: + depression and + anxiety; no suicidal ideation and no homicidal ideation Endocrine: no cold intolerance and no heat intolerance Hematologic / Lymphatic: no easy bleeding and no easy bruising Physical Exam Constitutional: well developed, well nourished and + morbidly obese; no acute distress Eyes: PERRL, conjunctivae normal, anicteric sclerae ENMT: Mouth: oral mucous membranes not dry Respiratory: normal respiratory effort; no respiratory distress and no labored breathing Auscultation: lungs clear to auscultation bilaterally; no crackles, no rales, no rhonchi and no wheezes Cardiovascular: Rate/Rhythm: regular rate and regular rhythm Heart Sounds: no murmur and no cardiac rub Vessels: normal peripheral pulses and radial pulses present; no JVD Extremities: + edema (2+ bilateral LE chronic lymphedema) Gastrointestinal (Abdomen): Inspection/Auscultation: abdomen normal to inspection, + abdomen distended (grossly distended) and normal bowel sounds Percussion/Palpation: abdomen soft; abdomen nontender, no guarding, abdomen not rigid and no hepatosplenomegaly Musculoskeletal: Head/Neck/Chest: normocephalic and head atraumatic Spine: no cervical spinal tenderness, no cervical muscular tenderness, no thoracic spinal tenderness and no lumbar spinal tenderness Skin: no rashes, warm and dry + erythema (bilateral shins red patches with hyperkeratotic and bullous lesions) Neurologic: CN's II-XI intact bilaterally and moves all extremities Motor/Sensory: no tremor and no sensory deficit Psychiatric: Orientation: alert, oriented to person, oriented to place and oriented to time Apperance: appropriately groomed; not disheveled Affect: + anxious affect and + tearful affect; + affect not euthymic Genitourinary: no CVA tenderness Results & Data Results & Data ([facility]) Vital Signs (Past 12 Hours) Vital Signs Temp Pulse Resp BP BP Pulse Ox 09/14/20 07:23 36.9 C 76 18 114/71 99 09/13/20 23:10 36.5 C 71 18 112/69 100 Laboratory Results Abnormal lab results 09/13/20 09/13/20 09/13/20 Range/Units 12:05 17:07 20:50 WBC (4.8-10.8) K/uL RBC (4.2-5.4) M/uL Hgb (12.0-16.0) g/dL Hct (37-47) % MCHC (32-36) g/dL RDW Std Deviation (36.4-46.3) fL RDW Coeff of Ewa (11.5-14.5) % MPV (7.4-10.4) fL Carbon Dioxide (21-32) mmol/L Anion Gap (3-11) BUN (7-18) mg/dl BUN/Creatinine Ratio (10-20) Glucose (70-99) mg/dl POC Glucose 158 H 118 H 153 H (70-99) mg/dl 09/14/20 09/14/20 09/14/20 Range/Units 05:49 05:49 08:00 WBC 4.63 L (4.8-10.8) K/uL RBC 3.84 L (4.2-5.4) M/uL Hgb 10.6 L (12.0-16.0) g/dL Hct 35.0 L (37-47) % MCHC 30.3 L (32-36) g/dL RDW Std Deviation 49.3 H (36.4-46.3) fL RDW Coeff of Ewa 14.8 H (11.5-14.5) % MPV 10.7 H (7.4-10.4) fL Carbon Dioxide 37 H (21-32) mmol/L Anion Gap -1.0 L (3-11) BUN 28 H (7-18) mg/dl BUN/Creatinine Ratio 36.3 H (10-20) Glucose 105 H (70-99) mg/dl POC Glucose 106 H (70-99) mg/dl Medications Administered Current Inpatient Medications Aspirin (Aspirin 81 Mg Ectab) 81 mg PO DAILY MIGUEL Stop: 09/26/20 08:59 Last Admin: 09/14/20 09:50 Dose: 81 mg Documented by: Atorvastatin Calcium (Atorvastatin 10 Mg Tab) 10 mg PO DAILY MIGUEL Stop: 09/26/20 08:59 Last Admin: 09/14/20 09:50 Dose: 10 mg Documented by: Cyanocobalamin (Cyanocobalamin 500 Mcg Tablet (Vitamin B-12)) 1,000 mcg PO DAILY MIGUEL Stop: 09/26/20 08:59 Last Admin: 09/14/20 09:50 Dose: 1,000 mcg Documented by: Dextrose (Dextrose 50% 50 Ml Syringe) 25 - 50 ml IV UD PRN; Protocol PRN Reason: Hypoglycemia Protocol Stop: 09/26/20 07:13 Diclofenac Sodium (Diclofenac Sod 1% Gel 100 Gm Tube) 4 gm EXT QID MIGUEL Stop: 10/03/20 16:59 Last Admin: 09/14/20 09:42 Dose: 4 gm Documented by: Enoxaparin Sodium (Enoxaparin Inj 40 Mg/0.4 Ml Syr) 40 mg SQ Q12 MIGUEL Stop: 09/26/20 08:59 Last Admin: 09/14/20 09:50 Dose: 40 mg Documented by: Ferrous Sulfate (Ferrous Sulfate 325 Mg Tab) 325 mg PO DAILY MIGUEL Stop: 09/26/20 08:59 Last Admin: 09/14/20 09:50 Dose: 325 mg Documented by: Furosemide (Furosemide 40 Mg Tab) 40 mg PO QAM MIGUEL Stop: 09/26/20 08:59 Last Admin: 09/13/20 08:59 Dose: 40 mg Documented by: Glucagon (Glucagon For Inj 1 Mg Vial) 1 mg SQ UD PRN; Protocol PRN Reason: Hypoglycemia Protocol Stop: 09/26/20 07:13 Glucose (Glucose 10 Tabs/Tube) 4 - 8 tabs PO UD PRN; Protocol PRN Reason: Hypoglycemia Protocol Stop: 09/26/20 07:13 Glucose (Glucose 40% Gel 15 Gm Tube) 15 - 30 gm PO UD PRN; Protocol PRN Reason: Hypoglycemia Protocol Stop: 09/26/20 07:13 Insulin Aspart (Insulin Aspart 100 Units/Ml 3 Ml Pen) 0 units SC ACHS MIGUEL Stop: 09/26/20 07:29 Last Admin: 09/14/20 09:36 Dose: 5 units Documented by: Insulin Glargine (Insulin Glargine Solostar 100 Units/Ml 3 Ml Pen) 17 units SC BID MIGUEL Stop: 10/07/20 20:59 Last Admin: 09/14/20 09:36 Dose: 17 units Documented by: Levetiracetam (Levetiracetam 500 Mg Tab) 1,000 mg PO BID MIGUEL Stop: 09/26/20 08:59 Last Admin: 09/14/20 09:50 Dose: 1,000 mg Documented by: Metoprolol Succinate (Metoprolol Succ 50mg Ext Rel Tab) 50 mg PO DAILY MIGUEL Stop: 09/26/20 08:59 Last Admin: 09/14/20 09:41 Dose: 50 mg Documented by: Miscellaneous (Carbohydrates For Hypoglycemia ) 15 - 30 gm PO UD PRN PRN Reason: Hypoglycemia Protocol Stop: 09/26/20 07:13 Modafinil (Modafinil 100 Mg Tab) 100 mg PO DAILY MIGUEL Stop: 09/26/20 08:59 Last Admin: 09/14/20 09:58 Dose: 100 mg Documented by: Multi-Ingredient Cream (Eucerin Cr 120 Gm Jar) 1 appln EXT BID PRN PRN Reason: Dryness Stop: 10/01/20 15:38 Last Admin: 09/06/20 09:11 Dose: 1 appln Documented by: Nystatin (Nystatin Powder 15gm Btl) 1 appln EXT BID MIGUEL Stop: 09/26/20 08:59 Last Admin: 09/14/20 09:41 Dose: 1 appln Documented by: Oxycodone HCl (Oxycodone Hcl Ir 5 Mg Tab (Immediate Release)) 5 mg PO Q8H PRN PRN Reason: Pain Stop: 09/17/20 09:26 Spironolactone (Spironolactone 12.5 Mg Tab) 12.5 mg PO DAILY MIGUEL Stop: 09/26/20 08:59 Last Admin: 09/14/20 09:50 Dose: 12.5 mg Documented by: Topiramate (Topiramate 100 Mg Tab) 100 mg PO QAM MIGUEL Stop: 09/26/20 08:59 Last Admin: 09/14/20 09:50 Dose: 100 mg Documented by: PG Care Time/CCT Total # of Minutes Spent Total Time Spent with Patient: Total time spent is greater than 50% in coordination of care (as documented) at patient's floor/unit and/or counseling patient: Coding Level of Care Code 17864 Subseq Hosp Care Lvl 3 Diagnoses Anxiety F41.9 ADRYAN (acute kidney injury) N17.9 Ambulatory dysfunction R26.2 Intellectual disability F79 Lymphedema of both lower extremities I89.0 Hypokalemia E87.6 Abdominal distension R14.0 Cellulitis and abscess of leg L03.119; L02.419 Chronic respiratory failure with hypoxia J96.11 Diabetes mellitus, type II E11.9 Diabetes mellitus complication status: without complication 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 mellitus 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 treater helper insulin use: without termite treater helper use Hypertension I10 Hypertension type: essential hypertension Hearing impaired H91.93 Hearing loss type: unspecified Laterality: bilateral Morbid obesity with BMI of 40.0-44.9, adult E66.01; Z68.41 Knee pain, bilateral M25.561; M25.562 Chronicity: unspecified Leg pain, bilateral M79.604; M79.605 Seizure disorder G40.909 Asthma J45.909 Asthma complication type: uncomplicated Asthma persistence: unspecified Asthma severity: unspecified severity DVT prophylaxis Z29.9 (1) Hearing impaired Hearing loss type: unspecified Laterality: bilateral Qualified Code(s): H91.93 - Unspecified hearing loss, bilateral (2) Diabetes mellitus, type II Diabetes mellitus complication status: without complication Diabetes mellitus fci insulin use: without termite treater helper use Qualified Code(s): E11.9 - Type 2 diabetes mellitus without complications (3) Knee pain, bilateral Chronicity: unspecified Qualified Code(s): M25.561 - Pain in right knee; M25.562 - Pain in left knee (4) Hypertension Hypertension type: essential hypertension Qualified Code(s): I10 - Essential (primary) hypertension (5) Asthma Asthma complication type: uncomplicated Asthma persistence: unspecified Asthma severity: unspecified severity Qualified Code(s): J45.909 - Unspecified asthma, uncomplicated
[2020-09-14] MEDS ORDERED: FUROSEMIDE 20 MG TAB PO SCH (10:30)
[2020-09-15 07:04] LABS: Hematocrit (blood only) 34.4 % (37-47); Hemoglobin 10.5 g/dL (12.0-16.0); Mean Corpuscular Hemoglobin 27.7 pg (25-34); Mean Corpuscular Hgb Conc 30.5 g/dL (32-36); Mean Corpuscular Volume 90.8 fL (80-100); Mean Platelet Volume 10.6 fL (7.4-10.4); Platelet Count 164 K/uL (130-400); RDW Coefficient of Variation 14.8 % (11.5-14.5); RDW Standard Deviation 49.1 fL (36.4-46.3); Red Blood Count 3.79 M/uL (4.2-5.4); White Blood Count 4.44 K/uL (4.8-10.8)
[2020-09-15 07:39] LABS: BUN Creatinine Ratio 28.1 (10-20); Calcium 8.8 mg/dl (8.5-10.1); Creatinine Clr Calc Pharmacy 63.4 ml/min; Est GFR (African American) 78.4; Est GFR (Non-African American) 67.6; Potassium 4.1 mmol/L (3.5-5.1)
[2020-09-15] MEDS: INSULIN GLARGINE SOLOSTAR 100 UNITS/ML 3 ML PEN SC SCH ×2 (08:56→21:27)
[2020-09-15] MEDS: INSULIN ASPART 100 UNITS/ML 3 ML PEN SC SCH ×4 (08:56→21:29)
[2020-09-15] MEDS: CYANOCOBALAMIN 500 MCG TABLET (VITAMIN B-12) PO SCH (08:59)
[2020-09-15] MEDS: FERROUS SULFATE 325 MG TAB PO SCH (08:59)
[2020-09-15] MEDS: levETIRAcetam 500 MG TAB PO SCH ×2 (08:59→21:22)
[2020-09-15] MEDS: ASPIRIN 81 MG ECTAB PO SCH (08:59)
[2020-09-15] MEDS: SPIRONOLACTONE 12.5 MG TAB PO SCH (08:59)
[2020-09-15] MEDS: METOPROLOL SUCC 50MG EXT REL TAB PO SCH (08:59)
[2020-09-15] MEDS: TOPIRAMATE 100 MG TAB PO SCH (08:59)
[2020-09-15] MEDS: ATORVASTATIN 10 MG TAB PO SCH (08:59)
[2020-09-15] MEDS: ENOXAPARIN INJ 40 MG/0.4 ML SYR SQ SCH ×2 (09:01→21:21)
[2020-09-15] MEDS: DICLOFENAC SOD 1% GEL 100 GM TUBE EXT SCH ×4 (09:01→21:21)
[2020-09-15] MEDS: NYSTATIN POWDER 15GM BTL EXT SCH ×2 (09:01→21:26)
[2020-09-15] MEDS: modafiniL 100 MG TAB PO SCH (09:25)
--- NOTE | 2020-09-15 12:18 | Hospitalist Progress Note ---
Date of Service September 15, 2020 Assessment & Plan (1) Anxiety: Long conversation with patient about going to rehab. Patient still expressing fears: [facility] [place] far from home. Afraid they will put her in a room with someone who has COVID. Afraid she will miss the holidays with her family. Worried that her social security checks are not being cashed. Worried her bills are not being paid and that she is going to lose her home. States she is mad at her family for not bringing her home -- she thinks they are abandoning her. Constantly reiterated to patient to be positive: She could get stronger and go home from rehab in a couple weeks. Assured her that the people at rehab are nice and are going to help her. Assured her that they do not room COVID patients with non-COVID patients. Reminded her that being mad at her family is not going to change her sit uation. Reminded her that her family loves her and wants the best for her -- they just can not take care of her at home. Stressed to patient that she needs to go to whichever rehab facility has a room first, which will help her to get home sooner. [facility] will not have a bed until 09/22. CM assisting with ref to other facilties. Of note, patient progressing with PT inpatient -- to be continued (2) ADRYAN (acute kidney injury): Baseline Cr <1 * Cr 0.91 on AM labs -- ADRYAN RESOLVED * Continue lasix but at decreased 20mg daily dose -- to be continued at discharge for chronic lymphedema * BMP in AM (3) Ambulatory dysfunction: * does not walk at home, uses power chair * not safe to return home. * boyfriend w/ whom she lives and 2 sons in agreement that she is not safe to return home at discharge. * Case management helping with dispo (4) Intellectual disability: * At least mild-moderate ID. Supportive care * Seen by psych - determined that she lacks capacity for medical decision making * Needs healthcare POA - one of her children would hopefully act on her behalf. (5) Lymphedema of both lower extremities: * severe stasis changes at this time * decreased lasix from 40mg to 20mg daily as above * Continue skin care, lotion, pressure offloading to prevent skin breakdown with pillows and repositioning (6) Hypokalemia: * Resolved -- K 4.1, Mag wnl (7) Abdominal distension: * 11-13 firm distended abdomen * CT abdomen/pelvis for further eval and to rule out mass--> benign abdominal ventral hernias present * Less distention today and without pain (8) Cellulitis and abscess of leg: * resolved. * LLE. * s/p 10-day course of IV/PO abx. * abx now off. (9) Chronic respiratory failure with hypoxia: * stable on home O2 amount - 2 L continuously --> of note, patient had been on 3L this stay and CO2 elevated to 37. Titrated back to usual home 2L. Will continue to monitor. 100% * Obesity-hypoventilation syndrome likely cause of chronic resp failure. (10) Diabetes mellitus, type II: * HbA1C 7.6%. * holding oral agents while inpatient * lantus/novolog while here -- increased levemir to 18 units BID from 17 units BID * BSGs acceptable -- continue to monitor (11) Hypertension: * cont home meds -- metoprolol succinate 50mg, spinolactone 12.5mg, topamax 100mg, lasix 20mg daily * BP 115/73, controlled * Continue to monitor (12) Hearing impaired: * severe * has assistive device in room to help w/ this (13) Morbid obesity with BMI of 40.0-44.9, adult: * BMI 41.5 (14) Knee pain, bilateral: * OA. * Cont voltaren gel qid. (15) Leg pain, bilateral: * dopplers neg for DVT. (16) Seizure disorder: * Presented and witnessed seizure on admission with SpO2 down to 60 --given IV medications with resolution. Likely medication non-compliance as keppra level undetectable * No further seizure activity * Continue keppra 1000 mg BID, topamax 100 mg daily (17) Asthma: * Stable, no exacerbation * Continue albuterol inhaler prn (18) DVT prophylaxis: * lovenox BID CODE: FULL Dispo - [facility] has no beds. [facility] unable to take until 09/22. Other referrals placed by CM. [facility] involved. CM assisting Admission and Anticipated Discharge Date Admission Date: August 27, 2020 Subjective Patient evaluated early this afternoon. Up in chair finishing her roast beef and noodles. She expressed concerns at discharge to a facility with other covid positive p atients and would like to be home by [place]. Discussed CM asssiting with placement at discharge, and they also noted patient now ambulating 12 feet but boyfriend does still believe patient may require 24/7 care at home per their discussion earlier today. [facility] unavailable to accept until 09/22 and we are looking into other facilities. No chest pain, shortness of breath (above baseline, and she notes she is typically on 2L NC at home), cough, fever, chills, nausea, vomiting, abdominal pain or dysuria at this time. Review of Systems Review of Systems: All systems reviewed & are unremarkable except as noted in HPI & below Physical Exam Constitutional: well developed, well nourished and + morbidly obese; no acute distress and no altered mental status Eyes: + anicteric sclerae and PERRL ENMT: external ear and nose normal, oropharynx normal Mouth: oral mucous membranes not dry Neck: normal visual inspection and trachea midline Respiratory: normal respiratory effort; no respiratory distress and no labored breathing Auscultation: lungs clear to auscultation bilaterally; no crackles, no rales, no rhonchi and no wheezes 100% on 3L -- turned down to 2L via NC Cardiovascular: Rate/Rhythm: regular rate and regular rhythm Heart Sounds: normal S1 and normal S2; no murmur and no cardiac rub Vessels: normal peripheral pulses, posterior tibial pulses present, dorsalis pedis pulses present and radial pulses present; no JVD Extremities: + edema (2+ bilateral LE chronic lymphedema) Gastrointestinal (Abdomen): normal bowel sounds, soft, nontender, no hepatosplenomegaly Percussion/Palpation: abdomen soft; abdomen nontender, no guarding, abdomen not rigid and no hepatosplenomegaly Musculoskeletal: Head/Neck/Chest: normocephalic and head atraumatic Spine: no cervical spinal tenderness, no cervical muscular tenderness, no thoracic spinal tenderness and no lumbar spinal tenderness Skin: no rashes, warm and dry + erythema (bilateral shins red patches with hyperkeratotic and bullous lesions) Neurologic: CN's II-XI intact bilaterally and moves all extremities Motor/Sensory: no tremor and no sensory deficit Psychiatric: Orientation: alert, oriented to person, oriented to place and oriented to time Apperance: not disheveled Eye Contact: + fair eye contact (seemed distracted at times, episodes of prolonged avoidance of eye contact) Motor Behavior: no abnormal motor movements (seated in bedside chair ) Speech: + abnormal rate/rhythm/volume of speech Affect: + anxious affect; + affect not euthymic Mood: + anxious mood; no depressed mood Cognition: language grossly intact; + recent memory not intact and + attention not intact (easily distracted, tangential at times) Estimated Intelligence: + below average estimated intelligence Insight: + limited insight Judgement: + limited judgement Genitourinary: no CVA tenderness Results & Data Results & [facility] ([facility]) Vital Signs (Past 12 Hours) Vital Signs Temp Pulse Resp BP Pulse Ox 09/15/20 07:04 36.7 C 75 18 115/73 100 Laboratory Results 09/15/20 09/15/20 09/15/20 Range/Units 12:46 08:12 06:52 WBC (4.8-10.8) K/uL RBC (4.2-5.4) M/uL Hgb (12.0-16.0) g/dL Hct (37-47) % MCV (80-100) fL MCH (25-34) pg MCHC (32-36) g/dL RDW Std Deviation (36.4-46.3) fL RDW Coeff of Ewa (11.5-14.5) % Plt Count (130-400) K/uL MPV (7.4-10.4) fL Sodium 139 (136-145) mmol/L Potassium 4.1 (3.5-5.1) mmol/L Chloride 104 (98-107) mmol/L Carbon Dioxide 37 H (21-32) mmol/L Anion Gap -2.0 L (3-11) BUN 26 H (7-18) mg/dl Creatinine 0.91 (0.6-1.2) mg/dl Est Cr Clr Drug Dosing 63.4 ml/min Est GFR ( Amer) 78.4 Est GFR (Non-Af Amer) 67.6 BUN/Creatinine Ratio 28.1 H (10-20) Glucose 119 H (70-99) mg/dl POC Glucose 148 H 113 H (70-99) mg/dl Calcium 8.8 (8.5-10.1) mg/dl 09/15/20 09/14/20 09/14/20 Range/Units 06:52 20:27 17:06 WBC 4.44 L (4.8-10.8) K/uL RBC 3.79 L (4.2-5.4) M/uL Hgb 10.5 L (12.0-16.0) g/dL Hct 34.4 L (37-47) % MCV 90.8 (80-100) fL MCH 27.7 (25-34) pg MCHC 30.5 L (32-36) g/dL RDW Std Deviation 49.1 H (36.4-46.3) fL RDW Coeff of Ewa 14.8 H (11.5-14.5) % Plt Count 164 (130-400) K/uL MPV 10.6 H (7.4-10.4) fL Sodium (136-145) mmol/L Potassium (3.5-5.1) mmol/L Chloride (98-107) mmol/L Carbon Dioxide (21-32) mmol/L Anion Gap (3-11) BUN (7-18) mg/dl Creatinine (0.6-1.2) mg/dl Est Cr Clr Drug Dosing ml/min Est GFR ( Amer) Est GFR (Non-Af Amer) BUN/Creatinine Ratio (10-20) Glucose (70-99) mg/dl POC Glucose 152 H 101 H (70-99) mg/dl Calcium (8.5-10.1) mg/dl PG Care Time/CCT Total # of Minutes Spent Total Time Spent with Patient: Total time spent is greater than 50% in coordination of care (as documented) at patient's floor/unit and/or counseling patient: Coding Level of Care Code 07070 Subseq Hosp Care Lvl 2 Diagnoses Anxiety F41.9 ADRYAN (acute kidney injury) N17.9 Ambulatory dysfunction R26.2 Intellectual disability F79 Lymphedema of both lower extremities I89.0 Hypokalemia E87.6 Abdominal distension R14.0 Cellulitis and abscess of leg L03.119; L02.419 Chronic respiratory failure with hypoxia J96.11 Diabetes mellitus, type II E11.9 Diabetes mellitus complication status: without complication Diabetes mellitus [employer] insulin use: 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 Hypertension I10 Hypertension type: essential hypertension Hearing impaired H91.93 Hearing loss type: unspecified Laterality: bilateral Morbid obesity with BMI of 40.0-44.9, adult E66.01; Z68.41 Knee pain, bilateral M25.561; M25.562 Chronicity: unspecified Leg pain, bilateral M79.604; M79.605 Seizure disorder G40.909 Asthma J45.909 Asthma complication type: uncomplicated Asthma persistence: unspecified Asthma severity: unspecified severity DVT prophylaxis Z29.9 (1) Hearing impaired Hearing loss type: unspecified Laterality: bilateral Qualified Code(s): H91.93 - Unspecified hearing loss, bilateral (2) Diabetes mellitus, type II Diabetes mellitus complication status: without complication Diabetes mellitus chcf insulin use: without chcf use Qualified Code(s): E11.9 - Type 2 diabetes mellitus without complications (3) Knee pain, bilateral Chronicity: unspecified Qualified Code(s): M25.561 - Pain in right knee; M25.562 - Pain in left knee (4) Hypertension Hypertension type: essential hypertension Qualified Code(s): I10 - Essential (primary) hypertension (5) Asthma Asthma complication type: uncomplicated Asthma persistence: unspecified Asthma severity: unspecified severity Qualified Code(s): J45.909 - Unspecified asthma, uncomplicated
[2020-09-16 06:35] LABS: Hematocrit (blood only) 36.5 % (37-47); Hemoglobin 11.3 g/dL (12.0-16.0); Mean Corpuscular Hemoglobin 27.8 pg (25-34); Mean Corpuscular Volume 89.9 fL (80-100); Mean Platelet Volume 11.4 fL (7.4-10.4); Platelet Count 162 K/uL (130-400); RDW Coefficient of Variation 14.7 % (11.5-14.5); RDW Standard Deviation 48.3 fL (36.4-46.3); Red Blood Count 4.06 M/uL (4.2-5.4); White Blood Count 4.43 K/uL (4.8-10.8)
[2020-09-16 07:03] LABS: BUN Creatinine Ratio 29.1 (10-20); Calcium 9.6 mg/dl (8.5-10.1); Creatinine Clr Calc Pharmacy 60.8 ml/min; Est GFR (African American) 74.4; Est GFR (Non-African American) 64.2; Potassium 3.8 mmol/L (3.5-5.1)
[2020-09-16] MEDS: NYSTATIN POWDER 15GM BTL EXT SCH (08:04)
[2020-09-16] MEDS: DICLOFENAC SOD 1% GEL 100 GM TUBE EXT SCH ×2 (08:04→12:49)
[2020-09-16] MEDS ORDERED: FUROSEMIDE 40 MG TAB PO SCH (09:00)
[2020-09-16] MEDS: INSULIN ASPART 100 UNITS/ML 3 ML PEN SC SCH ×2 (09:29→12:49)
[2020-09-16] MEDS: INSULIN GLARGINE SOLOSTAR 100 UNITS/ML 3 ML PEN SC SCH (09:29)
[2020-09-16] MEDS: modafiniL 100 MG TAB PO SCH (09:30)
[2020-09-16] MEDS: ENOXAPARIN INJ 40 MG/0.4 ML SYR SQ SCH (09:30)
[2020-09-16] MEDS: METOPROLOL SUCC 50MG EXT REL TAB PO SCH (09:31)
[2020-09-16] MEDS: CYANOCOBALAMIN 500 MCG TABLET (VITAMIN B-12) PO SCH (09:31)
[2020-09-16] MEDS: TOPIRAMATE 100 MG TAB PO SCH (09:31)
[2020-09-16] MEDS: ATORVASTATIN 10 MG TAB PO SCH (09:32)
[2020-09-16] MEDS: levETIRAcetam 500 MG TAB PO SCH (09:32)
[2020-09-16] MEDS: ASPIRIN 81 MG ECTAB PO SCH (09:33)
[2020-09-16] MEDS: FERROUS SULFATE 325 MG TAB PO SCH (09:33)
[2020-09-16] MEDS: SPIRONOLACTONE 12.5 MG TAB PO SCH (09:34)
--- NOTE | 2020-09-16 13:05 | Discharge Summary ---
Date of Service September 16, 2020 Admission HPI Per Admitting Provider Gilma Toro is a 60yo C female with presenting from home after having a seizure. Patient sedated in the ER after receiving IV ativan. History obtained through chart review and discussion with ER team. Per report, patient had a seizure at home that was witnessed by her boyfriend. EMS was called and she was brought to [facility] ER. Patient was doing well initially and was being prepared for DC to home when she had a second seizure. Seizure described as tonic-clonic with arms raised above her head and shaking. Oxygen saturation 60% during seizure. She was administered Keppra x 1gm, Ativan x 2mg which broke the seizure. Patient's blood pressure decreased after medication administration to 84/42. She was given IV NSS with improvement. Currently 109/60. Patient persistently tachycardic in 120's ER Course: IL NSS, Keppra x 1gm IV, Ativan x 2mg IV Admission Exam Per Admitting Provider General: patient somnolent, minimally arousable after receiving IV Ativan, she grimaces to pain, not following commands at present Skin: warm, dry, bilateral LE wounds with dressings in place. Some old drainage noted on bandage HEENT: NC/AT, PERRL, , anicteric sclera, conjunctiva without injection, external ear normal to inspection and nontender, nares patent, moist mucus membranes, poor dentition, +tongue bruising with blood in mouth, neck supple, trachea midline, no LAD, no thyromegaly, no JVD Heart: +S1/S2, regular, tachycardic, no m/r/g Lungs: equal air entry bilaterally, no rales/rhonchi/wheezes Abd: +BS, soft, ND, patient grimaces to palpation, no masses/organomegaly/ascites Ext: warm, 2+ pulses in UE/LE bilaterally, wound dressings in place Neuro: patient minimally arousable after receiving IV Ativan, grimacing to pain, protecting airway, no functional deficits noted prior to Ativan Principal Diagnosis Seizure, Ambulatory Dysfunction Discharge Exam Constitutional well developed, well nourished and + morbidly obese; no acute distress and no altered mental status Eyes + anicteric sclerae and PERRL ENMT Mouth: oral mucous membranes not dry Neck normal visual inspection and trachea midline Respiratory normal respiratory effort; no respiratory distress and no labored breathing Auscultation: lungs clear to auscultation bilaterally; no crackles, no rales, no rhonchi and no wheezes Cardiovascular Rate/Rhythm: regular rate and regular rhythm Heart Sounds: normal S1 and normal S2; no murmur and no cardiac rub Vessels: normal peripheral pulses, posterior tibial pulses present, dorsalis pedis pulses present and radial pulses present; no JVD Extremities: + edema (2+ bilateral LE chronic lymphedema) Gastrointestinal (Abdomen) normal bowel sounds, soft, nontender, no hepatosplenomegaly Percussion/Palpation: abdomen soft; abdomen nontender, no guarding, abdomen not rigid and no hepatosplenomegaly Musculoskeletal Head/Neck/Chest: normocephalic and head atraumatic Spine: no cervical spinal tenderness, no cervical muscular tenderness, no thoracic spinal tenderness and no lumbar spinal tenderness Skin + erythema (bilateral shins red patches with hyperkeratotic and bullous lesions) erythema to buttocks with Desenex Neurologic CN's II-XI intact bilaterally and moves all extremities Motor/Sensory: no tremor and no sensory deficit Psychiatric Orientation: alert, oriented to person, oriented to place and oriented to time Apperance: not disheveled Eye Contact: + fair eye contact (seemed distracted at times, episodes of prolonged avoidance of eye contact) Motor Behavior: no abnormal motor movements (seated in bedside chair ) Affect: + anxious affect Mood: + anxious mood Cognition: language grossly intact; + recent memory not intact and + attention not intact (easily distracted, tangential at times) Estimated Intelligence: + below average estimated intelligence Insight: + limited insight Judgement: + limited judgement Genitourinary no CVA tenderness Discharge Data Allergies Allergy/AdvReac Type Severity Reaction Status Date / Time ceftaroline fosamil Allergy Mild ITCHING Verified 08/27/20 00:30 HANDS latex Allergy Mild Unknown Verified 08/27/20 00:30 SABINE Inhibitors Allergy Unknown Unknown Verified 08/27/20 00:30 codeine Allergy Unknown Unknown Verified 08/27/20:30 erythromycin base Allergy Unknown Unknown Verified 08/27/20 00:30 Iodinated Contrast Media Allergy Unknown ` Verified 08/27/20 00:30 acetaminophen Allergy Unresponsiv Verified 08/27/20 00:30 [From Tylenol-Codeine] e Iodine and Iodide Containing Allergy Unknown Verified 08/27/20 00:30 Produc morphine Allergy Unknown Verified 08/27/20 00:30 Penicillins AdvReac Mild MAKES HER Verified 08/27/20 00:30 "FUNNY IN THE HEAD" SABINE Inhibitors Allergy Unknown Uncoded 08/27/20 00:30 Contrast Media Ready-Box MISC Allergy Unknown Uncoded 08/27/20 00:30 Erythromyci Allergy Unknown Uncoded 08/27/20 00:30 Latex Allergy Unknown Uncoded 08/27/20 00:30 Penicillins Allergy Unknown Uncoded 08/27/20 00:30 Consultations 08/27/20 04:21 ED Decision to Admit Stat 08/27/20 07:14 Consult Case Management - Discharge Planning Routine 09/02/20 16:12 Consult Psychiatry Routine Ordered Studies 08/27 CXR 09/03/20 15:29 US venous doppler LE BI Routine Knee XRAY 09/12/20 14:33 CT abd pelvis wo con Routine Hospital Course (1) Seizure disorder: * Presented and witnessed seizure on admission with SpO2 down to 60 --given IV medications with resolution. Likely medication non-compliance as keppra level undetectable * No further seizure activity * Continued keppra 1000 mg BID, topamax 100 mg daily (2) Anxiety: * Long conversation with patient about going to rehab. * Needs continued reassurance * Patient would like to return home by [place] to be with family. (3) ADRYAN (acute kidney injury): * Baseline Cr <1 * Poor intake * RESOLVED-- Cr 0.95 (4) Ambulatory dysfunction: * does not walk at home, uses power chair however has been increasing her activity with therapy while inpatient and has been evaluated by PT/OT * Recommendations to discharge to SNF as patient not safe currently to return home * [facility] at discharge (5) Intellectual disability: * At least mild-moderate ID. Supportive care * Seen by psych * Needs healthcare POA - one of her children would hopefully act on her behalf. (6) Lymphedema of both lower extremities: * severe stasis changes at this time * Lasix 40mg daily * Continue skin care, lotion, pressure offloading to prevent skin breakdown with pillows and repositioning (7) Hypokalemia: * Resolved (8) Abdominal distension: * firm distended abdomen on 09/12 * CT abdomen/pelvis for further eval and to rule out mass--> benign abdominal ventral hernias present * Less distention today and without pain (9) Cellulitis and abscess of leg: * LLE -- completed 10 day course abx while inpatient (10) Chronic respiratory failure with hypoxia: * stable on home O2 amount - 2 L continuously --> of note, patient had been on 3L this stay and CO2 elevated to 37. Titrated back to usual home 2L. Will continue to monitor and o2 sat remained 99% * Obesity-hypoventilation syndrome likely cause of chronic resp failure. (11) Diabetes mellitus, type II: * HbA1C 7.6%. * held oral agents while inpatient and utilized SSI * Resumed MANUFA[employer]URING [employer]IE[employer]ER medications at discharge -- metformin and janumet (12) Hypertension: * cont home meds -- metoprolol succinate 50mg, spinolactone 12.5mg, topamax 100mg, lasix 40mg daily * BP 108/68, controlled (13) Hearing impaired: * severe * assistive device in room to help w/ this (14) Morbid obesity with BMI of 40.0-44.9, adult: * BMI 41.5 (15) Knee pain, bilateral: * OA. * Continued Voltaren gel qid. (16) Leg pain, bilateral: * dopplers neg for DVT. (17) Asthma: * Stable, no exacerbation * Continued albuterol inhaler prn (18) DVT prophylaxis: * lovenox BID while inpatient CODE: FULL Discharged with family to [facility] Total Time Total Time Spent Total Time Spent (In Minutes): 90 Discharge Plan Discharge Items Patient Disposition: Transfer Inpatient Rehab Fac Reason For Visit: SEIZURE Discharge Diagnosis: Seizure, Ambulatory Dysfunction Goals: You have been hospitalized for an acute medical problem. During your stay at [facility], we have made an effort to correct the problem that brought you to the hospital while keeping you as comfortable as possible. Medications were used to bring your condition under control and your discharge instructions will include directions for any medications you should take after leaving the hospital. Please make sure you see your Primary Care Provider as part of your follow up plan. Activity: As commented below Activity Comment: increase as tolerated with rehab therapy Non-emergency contact: Primary Care Provider Call non-emergency contact if: you have any medication questions, your symptoms worsen and your pain is not controlled Follow-up/Referrals: Trisha Castillo MD [Primary Care Provider] - Diet: Carb Consistent or DM2 and Heart Healthy Addtl Attending Provider Instructions: You have been hospitalized and had a seizure during admission. Your keppra levels were drawn and were undetectable which is likely related to non- compliance with medications and you have been taking them during this admission and have had no further seizure activity. You were treated for a lower extremity cellulitis and completed a course of antibiotics for such. These are completed and you have no further antibiotics. You have been evaluated by physical and occupational therapy to help improve your strength and they recommended rehab at discharge. You have been set up for rehab through [facility] and they will monitor your progress. You should follow up with your primary care provider in the next 1-2 weeks to monitor your progress and may want follow up with Neurology at their discretion. Please return to the emergency department with any chest pain, shortness of breath, dysuria, or other symptoms that are concerning for you. It has been a pleasure being apart of the medical team providing for you while you have been in the hospital. Take care! Pending Studies at Discharge: No Stand-Alone Forms: My [facility] Skilled Items Patient informed of condition?: Yes DNR: No Discharge Level of Care: Acute rehab Communicable Disease: No Discharge Prognosis: Improving Lines: None Urinary Catheter: No Medications and DC Order Prescriptions: New Dermacerin Cream 1 applic EXT BID PRNQty: 0 RF: 0 diclofenac sodium [Voltaren] 1 % Gel 4 g EXT QID Qty: 0 RF: 0 Continued topiramate [Topamax] 100 mg tablet 100 mg PO QAM RF: 0 metformin 500 mg tablet 500 mg PO QDL RF: 0 albuterol sulfate 90 mcg/actuation HFA aerosol inhaler 2 puffs INH QID PRN (Reason: Shortness Of Breath Or Wheezing) RF: 0 nitroglycerin 0.4 mg tablet, sublingual 0.4 mg SL Q5M PRN (Reason: Chest Pain) RF: 0 atorvastatin 10 mg Tablet 10 mg PO DAILY RF: 0 furosemide [Lasix] 40 mg Tablet 40 mg PO QAM RF: 0 metoprolol succinate [Toprol XL] 50 mg tablet extended release 24 hr 50 mg PO DAILY Qty: 30 RF: 0 levetiracetam [Keppra] 500 mg Tablet 1,000 mg PO BID Qty: 60 RF: 0 spironolactone 25 mg Tablet 12.5 mg PO DAILY Qty: 0 RF: 0 cyanocobalamin (vitamin B-12) [Vitamin B-12] 1,000 mcg Tablet 1,000 mcg PO DAILY RF: 0 aspirin 81 mg Tablet,Delayed Release (Dr/Ec) 81 mg PO DAILY RF: 0 cyanocobalamin (vitamin B-12) 1,000 mcg/mL Solution 1,000 mcg IM Q30D RF: 0 ferrous sulfate 325 mg (65 mg iron) Tablet 325 mg PO DAILY RF: 0 nystatin 100,000 unit/gram Powder 1 applic TOPICAL BID RF: 0 modafinil 100 mg Tablet 100 mg PO DAILY RF: 0 Janumet 50-500 mg tablet 1 tab PO BIDM RF: 0 Chewable Gummie Multivitamin 2 tab PO DAILY RF: 0 Discharge Orders: Discharge Order (Routine); Ordered 09/16/20 Ordered By: Shi White/Other Patient Handouts: High Blood Sugar (Hyperglycemia), Hypoglycemia (Low Blood Sugar), Managing Type 2 Diabetes Admission Data Admit Date/Time: 08/27/20 07:38 Attending Provider: Chinedu Daley Admit Provider: Cynthia Lopez Primary Care Provider: Trisha Castillo Other Providers: Andrea Sheldon ; [facility], ; [facility] ; [facility] ; Cynthia Lopez ; Cee Ceballos ; [facility] Other Interventions: Discharge Summary Assessment (RN) Last Done: 09/16/20 13:40 Coding Level of Care Code D/C Day Management >30 mins Diagnoses Seizure disorder G40.909 Anxiety F41.9 ADRYAN (acute kidney injury) N17.9 Ambulatory dysfunction R26.2 Intellectual disability F79 Lymphedema of both lower extremities I89.0 Hypokalemia E87.6 Abdominal distension R14.0 Cellulitis and abscess of leg L03.119; L02.419 Chronic respiratory failure with hypoxia J96.11 Diabetes mellitus, type II E11.9 Diabetes mellitus complication status: without complication 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
== END 2020-09-16 16:17 ==
LOC: ED 00:16 → SUATTDRO 05:20 → 2E 05:20 → INTOOBSV 07:38 → SUATTDRO 07:38 → 2W 08-29 14:26 → 3W 09-09 21:51

== ENCOUNTER 2022-05-24 15:04 | Inpatient (IN) ==
[2022-05-24] MEDS ORDERED: ONDANSETRON INJ 2 MG/ML 2 ML VIAL IV STA (15:49)
[2022-05-24] MEDS ORDERED: FAMOTIDINE 20MG IV PUSH 20 MG/5 ML SYR IV STA (15:49)
--- NOTE | 2022-05-24 16:11 | XRay Report ---
XR chest 1V portable HISTORY: Atypical Chest Pain COMPARISON: Chest 04/02/2022. FINDINGS: Slightly rotated study. No pneumothorax. No pleural effusions. The heart is mildly enlarged . This remains unchanged. There is mild central pulmonary vascular congestion without overt edema. No new focal lung consolidations to suggest pneumonia. IMPRESSION: Cardiomegaly with mild congestive change. This is similar to the prior study. ACT 112: Negative or not required by law. Electronically signed by: Laurent Caballero M.D. 05/24/2022 4:10 PM
[2022-05-24 16:36] LABS: Basophils # (auto) 0.03 K/uL (0-0.2); Basophils % (auto) 0.3 %; Eosinophils # (auto) 0.04 K/uL (0-0.50); Eosinophils % (auto) 0.4 %; Hematocrit (blood only) 32.2 % (34.1-44.9); Hemoglobin 9.9 g/dl (12.0-16.0); Immature Granulocytes # (auto) 0.04 K/uL (0.00-0.02); Immature Granulocytes % (auto) 0.4 %; Lymphocytes # (auto) 0.46 K/uL (1.2-3.4); Mean Corpuscular Hgb Conc 30.7 g/dL (32.0-36.0); Mean Corpuscular Volume 84.5 fL (80.0-100.0); Mean Platelet Volume 10.8 fL (9.4-12.3); Monocytes # (auto) 0.61 K/uL (0.24-0.82); Monocytes % (auto) 6.6 %; Neutrophils # (auto) 8.04 K/uL (1.4-6.5); Neutrophils % (auto) 87.3 %; Platelet Count 199 K/uL (130-400); RDW Coefficient of Variation 14.3 % (11.5-14.5); RDW Standard Deviation 43.9 fL (36.4-46.3); Red Blood Count 3.81 M/uL (3.93-5.22); White Blood Count 9.22 K/ul (4.8-10.8)
[2022-05-24 16:59] LABS: Albumin Globulin Ratio 0.9 (0.9-2); Albumin Level 3.4 gm/dl (3.4-5.0); BUN Creatinine Ratio 21.8 (10-20); Bilirubin Direct 0.2 mg/dl (0-0.2); Creatinine Clr Calc Pharmacy 56.2 ml/min; Est GFR (African American) 61.4 ml/min; Globulin 3.9 gm/dl (2.5-4.0); Magnesium 1.9 mg/dl (1.7-2.4); Phosphorus 3.1 mg/dl (2.5-4.9); Potassium 3.7 mmol/L (3.5-5.1); Total Protein 7.3 gm/dl (6.0-8.3)
[2022-05-24 17:02] LABS: Troponin I High Sensitivity 14.1 pg/ml (0-14)
[2022-05-24 17:37] LABS: Appearance Urine Turbid (Clear); Bacteria Urine Automated 4+ (Negative); Bilirubin Urine Negative (Negative); Blood Urine 2+ (Negative); Color Urine Yellow; Epithelial Cell Urine Auto 20-30 /lpf (0-5); Glucose Urine UA Negative (Negative); Ketones Urine Negative (Negative); Leukocyte Esterase Urine 3+ (Negative); Nitrite Urine Positive (Negative); Protein Urine 1+ (Negative); Specific Gravity Urine 1.012 (1.000-1.030); Urobilinogen Urine Negative (Negative); WBC Urine Automated >30 /hpf (0-5)
[2022-05-24] MEDS ORDERED: CEFEPIME 2,000 MG in SYRINGE 0 ML IV STA (18:49)
[2022-05-24] MEDS ORDERED: DAPTOmycin 425 MG in SYRINGE 0 ML IV SCH (19:00)
--- NOTE | 2022-05-24 19:00 | Emergency Department Note ---
Impression & Plan Encephalopathy, Pyelonephritis, Chronic respiratory failure with hypoxia and hypercapnia ED Provider Note NAME: AUGUST WEATHERS AGE: 62 SEX: F ARRIVES VIA: Ambulance INFORMANT: Patient, [id number] and caregiver, Yesenia: [phone]. ED PROVIDER(S): Olu Cevallos MD CHIEF COMPLAINT: weak, nausea PLAN: Disposition: Admit MEDICAL DECISION MAKING: The patient is a 62-year-old woman with a complicated past medical history of developmental delay, seizure disorder, morbid obesity, chronic respiratory failure with hypoxia and hypercapnia, nonischemic cardiomyopathy, chronic venous insufficiency who presents to the emergency department via EMS for evaluation of weakness nausea. Patient is a poor historian. Ultimately history is obtained from the patient's [id number] who reports that she is become weaker over the past couple of days and her mental status has declined where she is not as conversant and is drowsy easily falling asleep. She reports that her baseline typically is being able to stand and pivot to move from her power chair to the bathroom but this morning was unable to do that. The patient also is typically able to even ambulate with assistance but she was too weak to even attempt this. On arrival, the patient is chronically ill appearing. Mildly somnolent. Alert to self and place. She appears hypervolemic. Mild confusion to situation. Generalized weakness without focal neurologic deficits. Diminished BS at the bases. 3+ BLE edema. Stage 2 skin ulceration of bilateral lower legs and bilateral gluteal region without evidence of infeciton per director of strategic initiatives. EKG demonstrates sinus tachycardia with left bundle branch block similar to prior. no sgarbossa criteria. Chest x-ray with venous congestion and otherwise no acute abnormalities. WBC and platelets within normal limits. H/H similar to prior range values. Chemistry without metabolic acidosis with bicarbonate of 35 similar to prior range of values in setting of chronic hypercapnia. Electrolytes without significant abnormality. LFTs are unremarkable. High-sensitivity troponin 14.1, specific. Lipase is not elevated. UA is suspicious for infection with 2+ blood, positive nitrites, 3+ leuk esterase, WBCs and 4+ bacteria albeit with epithelial cells present. CT head with slight increased of prior mastoid effusion and otherwise negative for acute process. CT of the abdomen pelvis demonstrates straining of the bladder ureters and kidneys which given the patient's urinary tract infection is suspicious for upper infection. Lower abdominal fat containing hernias with nonspecific inflammatory changes. No evidence of cellulitis on exam. Given the patient's worsening baseline which was communicated by the patient's [id number] reasonable to admit the patient for further management. Procalcitonin 4.2. Lactate 0.7, wnl. Cefepime and daptomycin ordered empirically (prior wound cultures for pseudomonas, mrsa, klebsiella). IVF deferred given hypervolemic per exam and CXR and hemodynamically stable. Case was discussed with Dr. Lopez [facility] [place] hospitalist, who will evaluate the patient for admission. Triage Nursing notes reviewed and agree them. Prior medical records reviewed Vital Signs: reviewed and remarkable for no significant abnormalities Differential diagnosis: Infection, dehydration, metabolic abnormality, hypo/hyperglycemia, electrolyte disturbance, anemia, hypoxia, cardiac sources, intracerebral event, toxicologic, neurologic, as well as other pathologies. ER treatment provided: See below. Diagnostics interpreted by me: ECG: Sinus tachycardia, 110 bpm, no ectopy, LBBB, no sgarbossa criteria. Similar to prior. Cardiac Monitoring: An order for continuous cardiac monitoring was placed and demonstrated sinus tachycardia, 110 bpm, no ectopy. Laboratory studies: See below Imaging studies: See below Consultation(s): MARTHA Beltran hospitalist. HPI: The patient is a 62-year-old woman with a complicated past medical history of developmental delay, seizure disorder, morbid obesity, chronic respiratory failure with hypoxia and hypercapnia, nonischemic cardiomyopathy, chronic venous insufficiency who presents to the emergency department via EMS for evaluation of weakness nausea. Patient is a poor historian. Ultimately history is obtained from the patient's [id number]-[id number] who reports that she is become weaker over the past couple of days and her mental status has declined where she is not as conversant and is drowsy easily falling asleep. She reports that her baseline typically is being able to stand and pivot to move from her power chair to the bathroom but this morning was unable to do that. The patient also is typically able to even ambulate with assistance but she was too weak to even attempt this. ROS: See above HPI for pertinent positives & negatives. A total of 10 systems reviewed and were otherwise negative. VITALS:See Below PHYSICAL EXAMINATION: GENERAL: Awake, alert, mildly somnolent chronically ill-appearing, in no distress, BMI 39.1. HENT: Normocephalic, atraumatic. Oropharynx unremarkable. EYES: Normal conjunctiva. Sclera non-icteric. NECK: Supple. No nuchal rigidity. FROM. No JVD. RESPIRATORY: Diminished at bases and otherwise CTAB. CARDIAC: Regular rate, normal rhythm. Extremities warm and well perfused. Pulses equal. ABDOMEN: Soft, non-distended. No tenderness to palpation. No rebound or guarding. No masses. RECTAL: Deferred. MUSCULOSKELETAL: Chest examination reveals no tenderness. The back is symmetrical on inspection without obvious abnormality. There is no CVA tenderne ss to palpation. No joint edema. LOWER EXTREMITIES: Calves are equal size bilaterally and non-tender. 3+ edema. Chronic stage 2 ulcerations of bilateral lower legs without evidence of infection. NEURO: Alert, mildly somnolent. Generalized weakness without focal motor deficits noted. SKIN: No rash or jaundice noted. 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, managed as type 2 Diverticulosis DVT (deep venous thrombosis) Encephalopathy GERD (gastroesophageal reflux disease) Hyperlipidemia LDL goal <100 Left bundle branch block (LBBB) Lymphedema Mixed conductive and sensorineural hearing loss of left ear with restricted hearing of right ear MSSA (methicillin susceptible Staphylococcus aureus) Obesity Rectal polyp Seizure Sleep apnea Systolic CHF Thyroid nodule Surgical History H/O sinus surgery H/O: hysterectomy Tubal ligation status Family History Father Hypertension Stroke Sister Seizure Brother Seizure Mother Leukemia Social History Smoking Status: Smoker, status unknown Second Hand Exposure: No; Preferred Language: Tristanian Communication Ability: Effective Cloth Layer Required: No marital status: Life Partner Current Living Situation: Family and Other Current Living Situation Comment: roomate/ boyfriend How many Children do You have: 4 Feels Safe at Home: Yes Assistive Devices: Oxygen - Continuous and Wheelchair Allergies Allergies Allergy/AdvReac Type Severity Reaction Status Date / Time acetaminophen Allergy Severe Unresponsiv Verified 05/24/22 18:01 [From Tylenol-Codeine] e ceftaroline fosamil Allergy Mild ITCHING Verified 05/24/22 18:01 HANDS latex Allergy Mild Unknown Verified 05/24/22 18:01 SABINE Inhibitors Allergy Unknown Unknown Verified 05/24/22 18:01 codeine Allergy Unknown Unknown Verified 05/24/22 18:01 erythromycin base Allergy Unknown Unknown Verified 05/24/22 18:01 Iodinated Contrast Media Allergy Unknown Unknown Verified 05/24/22 18:01 Iodine and Iodide Containing Allergy Unknown Unknown Verified 05/24/22 18:01 Produc morphine Allergy Unknown Unknown Verified 05/24/22 18:01 Penicillins AdvReac Intermediate MAKES HER Verified 05/24/22 18:01 "FUNNY IN THE HEAD" Home Meds Home Medications Medication Instructions Recorded Confirmed topiramate 100 mg tablet (Topamax) 100 mg PO UD 06/26/18 05/24/22 furosemide 40 mg tablet (Lasix) 40 mg PO QAM 03/13/19 05/24/22 albuterol sulfate 90 mcg/actuation 2 puffs inhalation QID PRN 01/25/20 05/24/22 aerosol inhaler Shortness Of Breath Or Wheezing nitroglycerin 0.4 mg sublingual 0.4 mg sublingual Q5M PRN Chest 01/25/20 0 05/24/22 tablet Pain aspirin 81 mg tablet,delayed 81 mg PO DAILY 08/12/20 05/24/22 release cyanocobalamin (vitamin B-12) 1,000 mcg PO DAILY 08/12/20 05/24/22 1,000 mcg tablet (Vitamin B-12) cyanocobalamin (vitamin B-12) 1,000 mcg IM Q30D 08/12/20 05/24/22 1,000 mcg/mL injection solution ferrous sulfate 325 mg (65 mg 325 mg PO DAILY 08/12/20 05/24/22 iron) tablet nystatin 100,000 unit/gram topical 1 applic topical BID 08/12/20 05/24/22 powder atorvastatin 40 mg tablet 40 mg PO HS 10/15/21 05/24/22 levetiracetam 1,000 mg tablet 1,000 mg PO BID 10/15/21 05/24/22 sitagliptin 50 mg-metformin 500 mg 1 tab PO DAILY 10/15/21 05/24/22 tablet (Janumet) multivitamin with minerals-folic 2 tab PO DAILY 05/24/22 05/24/22 acid 200 mcg chewable tablet (Adult Multivitamin Gummies) Previous Rx's Medication Instructions Recorded metoprolol succinate 50 mg 50 mg PO DAILY #30 tabs 03/21/19 tablet,extended release 24 hr (Toprol XL) spironolactone 25 mg tablet 12.5 mg PO DAILY #0 tabs 03/21/19 Results & Data (ED) Vital Signs Vital Signs - 24 hr 05/24/22 15:18 05/24/22 15:18 05/24/22 15:18 Temperature 37 C Temperature Source Oral Pulse Rate 101 H Pulse Rate [Apical] 100 H Pulse Rhythm [Apical] Respiratory Rate 16 16 Respiratory Depth Normal Blood Pressure 105/63 Blood Pressure Mean 77 Pulse Oximetry 100 100 100 Oxygen Delivery Method Nasal Cannula Nasal Cannula Nasal Cannula Oxygen Flow Rate 2 2 2 Sepsis Recent Fever Within 48 Hours No Sepsis New/Unexplained Change in Mental Status No Sepsis Action Taken by Nursing No Action Required 05/24/22 18:08 Temperature Temperature Source Pulse Rate Pulse Rate [Apical] 96 H Pulse Rhythm [Apical] Regular Respiratory Rate 16 Respiratory Depth Blood Pressure Blood Pressure Mean Pulse Oximetry 96 Oxygen Delivery Method Nasal Cannula Oxygen Flow Rate 2 Sepsis Recent Fever Within 48 Hours Sepsis New/Unexplained Change in Mental Status Sepsis Action Taken by Nursing Laboratory Data Attestation: I reviewed the patient's lab results. Result diagrams: 05/24/22 16:16 05/24/22 16:16 Lab Results 05/24/22 05/24/22 05/24/22 Range/Units 16:16 16:16 16:41 WBC 9.22 (4.8-10.8) K/ul RBC 3.81 L (3.93-5.22) M/uL Hgb 9.9 L (12.0-16.0) g/dl Hct 32.2 L (34.1-44.9) % MCV 84.5 (80.0-100.0) fL MCH 26.0 (25.0-34.0) pg MCHC 30.7 L (32.0-36.0) g/dL RDW Std Deviation 43.9 (36.4-46.3) fL RDW Coeff of Ewa 14.3 (11.5-14.5) % Plt Count 199 (130-400) K/uL MPV 10.8 (9.4-12.3) fL Immature Gran % (Auto) 0.4 % Neut % (Auto) 87.3 % Lymph % (Auto) 5.0 % [place] % (Auto) 6.6 % Eos % (Auto) 0.4 % Baso % (Auto) 0.3 % Neut # (Auto) 8.04 H (1.4-6.5) K/uL Lymph # (Auto) 0.46 L (1.2-3.4) K/uL [place] # (Auto) 0.61 (0.24-0.82) K/uL Eos # (Auto) 0.04 (0-0.50) K/uL Baso # (Auto) 0.03 (0-0.2) K/uL Immature Gran # (Auto) 0.04 H (0.00-0.02) K/uL ABG pH (7.35-7.45) ABG pCO2 (35-46) mmHg ABG pO2 (80-95) mmHg ABG HCO3 (19-24) mmol/L ABG O2 Saturation (90-95) % ABG Base Excess (-9-1.8) mEq/L [place] Test (Pos) Oxygen Given Sodium 136 (136-145) mmol/L Potassium 3.7 (3.5-5.1) mmol/L Chloride 95 L (98-107) mmol/L Carbon Dioxide 35 H (21-32) mmol/L Anion Gap 6 (3-11) BUN 24 H (6-23) mg/dl Creatinine 1.10 (0.6-1.2) mg/dl Est Cr Clr Drug Dosing 56.2 ml/min Est GFR ( Amer) 61.4 ml/min Est GFR (Non-Af Amer) 53.0 ml/min BUN/Creatinine Ratio 21.8 H (10-20) Glucose 191 H (70-99(Fasting)) mg/dl POC Glucose 212 H (70-99) mg/dl Lactate (0.4-2.0) mmol/L Calcium 9.0 (8.5-10.1) mg/dl Phosphorus 3.1 (2.5-4.9) mg/dl Magnesium 1.9 (1.7-2.4) mg/dl Total Bilirubin 1.0 (0.2-1.0) mg/dl Direct Bilirubin 0.2 (0-0.2) mg/dl AST 14 (13-39) U/L ALT 9 (7-52) U/L Alkaline Phosphatase 96 (34-104) U/L Ammonia (18-72) umol/L Troponin I High Sens 14.1 H D (0-14) pg/ml Total Protein 7.3 (6.0-8.3) gm/dl Albumin 3.4 (3.4-5.0) gm/dl Globulin 3.9 (2.5-4.0) gm/dl Albumin/Globulin Ratio 0.9 (0.9-2) Lipase 38 (11-82) U/L Procalcitonin (0-0.5) ng/ml Urine Color Urine Appearance (Clear) Urine pH (4.5-7.5) Ur Specific [place] (1.000-1.030) Urine Protein (Negative) Urine Glucose (UA) (Negative) Urine Ketones (Negative) Urine Blood (Negative) Urine Nitrite (Negative) Urine Bilirubin (Negative) Urine Urobilinogen (Negative) Ur Leukocyte Esterase (Negative) Urine WBC (Auto) (0-5) /hpf Urine RBC (Auto) (0-4) /hpf U Hyaline Cast (Auto) (0-5) /lpf U Epithel Cells (Auto) (0-5) /lpf Urine Bacteria (Auto) (Negative) Urine Yeast SARS-CoV-2, RNA, NAAT (NEGATIVE) 05/24/22 05/24/22 05/24/22 Range/Units 17:20 18:52 19:20 WBC (4.8-10.8) K/ul RBC (3.93-5.22) M/uL Hgb (12.0-16.0) g/dl Hct (34.1-44.9) % MCV (80.0-100.0) fL MCH (25.0-34.0) pg MCHC (32.0-36.0) g/dL RDW Std Deviation (36.4-46.3) fL RDW Coeff of Ewa (11.5-14.5) % Plt Count (130-400) K/uL MPV (9.4-12.3) fL Immature Gran % (Auto) % Neut % (Auto) % Lymph % (Auto) % [place] % (Auto) % Eos % (Auto) % Baso % (Auto) % Neut # (Auto) (1.4-6.5) K/uL Lymph # (Auto) (1.2-3.4) K/uL [place] # (Auto) (0.24-0.82) K/uL Eos # (Auto) (0-0.50) K/uL Baso # (Auto) (0-0.2) K/uL Immature Gran # (Auto) (0.00-0.02) K/uL ABG pH (7.35-7.45) ABG pCO2 (35-46) mmHg ABG pO2 (80-95) mmHg ABG HCO3 (19-24) mmol/L ABG O2 Saturation (90-95) % ABG Base Excess (-9-1.8) mEq/L [place] Test (Pos) Oxygen Given Sodium (136-145) mmol/L Potassium (3.5-5.1) mmol/L Chloride (98-107) mmol/L Carbon Dioxide (21-32) mmol/L Anion Gap (3-11) BUN (6-23) mg/dl Creatinine (0.6-1.2) mg/dl Est Cr Clr Drug Dosing ml/min Est GFR ( Amer) ml/min Est GFR (Non-Af Amer) ml/min BUN/Creatinine Ratio (10-20) Glucose (70-99(Fasting)) mg/dl POC Glucose (70-99) mg/dl Lactate (0.4-2.0) mmol/L Calcium (8.5-10.1) mg/dl Phosphorus (2.5-4.9) mg/dl Magnesium (1.7-2.4) mg/dl Total Bilirubin (0.2-1.0) mg/dl Direct Bilirubin (0-0.2) mg/dl AST (13-39) U/L ALT (7-52) U/L Alkaline Phosphatase (34-104) U/L Ammonia (18-72) umol/L Troponin I High Sens (0-14) pg/ml Total Protein (6.0-8.3) gm/dl Albumin (3.4-5.0) gm/dl Globulin (2.5-4.0) gm/dl Albumin/Globulin Ratio (0.9-2) Lipase (11-82) U/L Procalcitonin 4.28 H (0-0.5) ng/ml Urine Color Yellow Urine Appearance Turbid A (Clear) Urine pH 7.0 (4.5-7.5) Ur Specific [place] 1.012 (1.000-1.030) Urine Protein 1+ H (Negative) Urine Glucose (UA) Negative (Negative) Urine Ketones Negative (Negative) Urine Blood 2+ H (Negative) Urine Nitrite Positive A (Negative) Urine Bilirubin Negative (Negative) Urine Urobilinogen Negative (Negative) Ur Leukocyte Esterase 3+ H (Negative) Urine WBC (Auto) >30 H (0-5) /hpf Urine RBC (Auto) 5-10 H (0-4) /hpf U Hyaline Cast (Auto) 10-30 H (0-5) /lpf U Epithel Cells (Auto) 20-30 H (0-5) /lpf Urine Bacteria (Auto) 4+ H (Negative) Urine Yeast Not Reportable SARS-CoV-2, RNA, NAAT NEGATIVE (NEGATIVE) 05/24/22 05/24/22 05/24/22 Range/Units 19:20 19:20 19:20 WBC (4.8-10.8) K/ul RBC (3.93-5.22) M/uL Hgb (12.0-16.0) g/dl Hct (34.1-44.9) % MCV (80.0-100.0) fL MCH (25.0-34.0) pg MCHC (32.0-36.0) g/dL RDW Std Deviation (36.4-46.3) fL RDW Coeff of [place]wa (11.5-14.5) % Plt Count (130-400) K/uL MPV (9.4-12.3) fL Immature Gran % (Auto) % Neut % (Auto) % Lymph % (Auto) % [place] % (Auto) % Eos % (Auto) % Baso % (Auto) % Neut # (Auto) (1.4-6.5) K/uL Lymph # (Auto) (1.2-3.4) K/uL [place] # (Auto) (0.24-0.82) K/uL Eos # (Auto) (0-0.50) K/uL Baso # (Auto) (0-0.2) K/uL Immature Gran # (Auto) (0.00-0.02) K/uL ABG pH 7.40 (7.35-7.45) ABG pCO2 56 H (35-46) mmHg ABG pO2 146 H (80-95) mmHg ABG HCO3 35 H (19-24) mmol/L ABG O2 Saturation 99.0 H (90-95) % ABG Base Excess 8.0 H (-9-1.8) mEq/L [place] Test Pos (Pos) Oxygen Given 2l Sodium (136-145) mmol/L Potassium (3.5-5.1) mmol/L Chloride (98-107) mmol/L Carbon Dioxide (21-32) mmol/L Anion Gap (3-11) BUN (6-23) mg/dl Creatinine (0.6-1.2) mg/dl Est Cr Clr Drug Dosing ml/min Est GFR ( Amer) ml/min Est GFR (Non-Af Amer) ml/min BUN/Creatinine Ratio (10-20) Glucose (70-99(Fasting)) mg/dl POC Glucose (70-99) mg/dl Lactate 0.7 (0.4-2.0) mmol/L Calcium (8.5-10.1) mg/dl Phosphorus (2.5-4.9) mg/dl Magnesium (1.7-2.4) mg/dl Total Bilirubin (0.2-1.0) mg/dl Direct Bilirubin (0-0.2) mg/dl AST (13-39) U/L ALT (7-52) U/L Alkaline Phosphatase (34-104) U/L Ammonia 66.0 (18-72) umol/L Troponin I High Sens (0-14) pg/ml Total Protein (6.0-8.3) gm/dl Albumin (3.4-5.0) gm/dl Globulin (2.5-4.0) gm/dl Albumin/Globulin Ratio (0.9-2) Lipase (11-82) U/L Procalcitonin (0-0.5) ng/ml Urine Color Urine Appearance (Clear) Urine pH (4.5-7.5) Ur Specific [place] (1.000-1.030) Urine Protein (Negative) Urine Glucose (UA) (Negative) Urine Ketones (Negative) Urine Blood (Negative) Urine Nitrite (Negative) Urine Bilirubin (Negative) Urine Urobilinogen (Negative) Ur Leukocyte Esterase (Negative) Urine WBC (Auto) (0-5) /hpf Urine RBC (Auto) (0-4) /hpf U Hyaline Cast (Auto) (0-5) /lpf U Epithel Cells (Auto) (0-5) /lpf Urine Bacteria (Auto) (Negative) Urine Yeast SARS-CoV-2, RNA, NAAT (NEGATIVE) Administered Medications Discontinued Medications Famotidine (Pepcid 20mg Iv Push) 20 mg in 5 mls @ 2.5 mls/min IV NOW STA Stop: 05/24/22 15:50 Last Admin: 05/24/22 16:51 Dose: 2.5 mls/min Documented By: KV Daptomycin 425 mg/ Syringe 8.5 mls @ 4.25 mls/min IV Q24H MIGUEL; Protocol Stop: 05/26/22 18:59 Last Admin: 05/24/22 19:40 Dose: 4.25 mls/min Documented By: KV Cefepime HCl (Maxipime) 20 mls @ 5 mls/min IV ONE ONE Stop: 05/24/22 19:33 Last Admin: 05/24/22 19:40 Dose: 5 mls/min Documented By: KV Ondansetron HCl (Ondansetron Inj 2 Mg/Ml 2 Ml Vial) 4 mg IV NOW STA Stop: 05/24/22 15:50 Last Admin: 05/24/22 16:51 Dose: 4 mg Documented By: KV Imaging Data Radiologist's Impression: Chest X-Ray 05/24/22 15:49 XR chest 1V portable HISTORY: Atypical Chest Pain COMPARISON: Chest 04/02/2022. FINDINGS: Slightly rotated study. No pneumothorax. No pleural effusions. The heart is mildly enlarged. This remains unchanged. There is mild central pulmonary vascular congestion without overt edema. No new focal lung consolidations to suggest pneumonia. IMPRESSION: Cardiomegaly with mild congestive change. This is similar to the prior study. ACT 112: Negative or not required by law. Electronically signed by: Laurent Caballero M.D. 05/24/2022 4:10 PM Abdomen/Pelvis CT 05/24/22 17:55 CT OF THE ABDOMEN AND PELVIS WITHOUT CONTRAST CLINICAL HISTORY: weakness, nausea, uti COMPARISON STUDY: CT of the abdomen and pelvis September 12, 2020. TECHNIQUE: Axial images of the abdomen and pelvis were obtained without IV contrast. Images were reviewed in the axial, sagittal, and coronal planes. Automated exposure control was utilized for the study. A dose lowering technique was utilized adhering to the principles of ALARA. FINDINGS: Lung bases are unremarkable. Small pericardial effusion has decreased in size since prior exam. There is cardiomegaly. No pneumatosis, free air or portal venous gas is present. No renal, ureteral or bladder calculi are present. Mild bladder wall thickening with mild adjacent infiltration is noted. There is also mild stranding adjacent to the ureters and kidneys. Evaluation of the remainder of the abdomen and pelvis is suboptimal on this unenhanced examination. Liver, spleen, adrenal glands and pancreas are unremarkable. There is no biliary or pancreatic ductal dilatation. Calcified gallstone within the gallbladder is noted. No evidence for acute cholecystitis. Mildly enlarged bilateral iliac chain lymph nodes remain unchanged. Moderate amount stool within the rectum is noted. There is colonic diverticulosis without evidence for acute diverticulitis. No evidence for a bowel obstruction. Fat-containing umbilical and left lower quadrant ventral hernias are present. There is skin thickening and subcutaneous stranding of the lower anterior abdominal wall. No fluid collection is present. There is no soft tissue gas. No acute fracture or suspicious lesion is identified within the visualized skeletal structures. IMPRESSION: 1. No urinary calculi or hydronephrosis. Stranding adjacent to the bladder, ureters and kidneys, as described above. This could be correlated with u rinalysis to exclude an infectious process. 2. No bowel obstruction. Colonic diverticulosis without evidence for acute diverticulitis. Moderate amount of stool within the rectum. 3. Skin thickening and nonspecific subcutaneous stranding of the lower anterior abdominal wall. Eventration of the anterior abdominal wall with several fat- containing hernias, as described above. 4. No change in mildly enlarged bilateral iliac chain lymph nodes since prior CT. ACT 112: Negative or not required by law. Electronically signed by: Goyo Castillo M.D. 05/24/2022 7:[address] 05/24/22 18:18 CT OF THE HEAD WITHOUT CONTRAST CLINICAL HISTORY: Altered mental status. COMPARISON STUDY: MRI of the brain May 07, 2016. Head CT April 02, 2022. CT DOSE: 884.08 mGy.cm TECHNIQUE: Helical axial images of the head were obtained without IV contrast. Automated exposure control was utilized for the study. A dose lowering technique was utilized adhering to the principles of ALARA. FINDINGS: No acute intracranial hemorrhage, midline shift or mass effect is present. The ventricular system is unremarkable. The basal cisterns are patent. No extra-axial collections are present. There are no findings to suggest acute dural sinus thrombosis or acute territorial infarct. No significant calvarial abnormalities are present. Ossification along the falx is incidentally noted Postoperative findings within the sinuses are noted. There is no evidence for sinusitis. Left mastoid air cells are nearly entirely opacified. This is slightly increased since CT of April 02, 2022. There is also fluid within the left middle ear. Small amount of fluid within the right mastoid air cells is unchanged. IMPRESSION: 1. No acute intracranial findings. No change in appearance of the brain. 2. Increase in a left mastoid effusion. Fluid within the left middle ear. Small amount of fluid within the right mastoid air cells. ACT 112: Negative or not required by law. Electronically signed by: Goyo Castillo M.D. 05/24/2022 7:00 PM Discharge Plan Visit Data Chief Complaint: Weakness ED Provider: Olu Cevallos Discharge Problem: Encephalopathy, Pyelonephritis, Chronic respiratory failure with hypoxia and hypercapnia Patient Disposition: Admitted As Inpatient Discharge Instructions Interventions: ED Discharge Assessment Last Done: 05/24/22 23:06
--- NOTE | 2022-05-24 19:11 | CT Scan Report ---
CT OF THE ABDOMEN AND PELVIS WITHOUT CONTRAST CLINICAL HISTORY: weakness, nausea, uti COMPARISON STUDY: CT of the abdomen and pelvis September 12, 2020. TECHNIQUE: Axial images of the abdomen and pelvis were obtained without IV contrast. Images were revi ewed in the axial, sagittal, and coronal planes. Automated exposure control was utilized for the zina dy. A dose lowering technique was utilized adhering to the principles of ALARA. FINDINGS: Lung bases are unremarkable. Small pericardial effusion has decreased in size since prior e xam. There is cardiomegaly. No pneumatosis, free air or portal venous gas is present. No renal, urete ral or bladder calculi are present. Mild bladder wall thickening with mild adjacent infiltration is n oted. There is also mild stranding adjacent to the ureters and kidneys. Evaluation of the remainder o f the abdomen and pelvis is suboptimal on this unenhanced examination. Liver, spleen, adrenal glands and pancreas are unremarkable. There is no biliary or pancreatic ductal dilatation. Calcified gallsto ne within the gallbladder is noted. No evidence for acute cholecystitis. Mildly enlarged bilateral il iac chain lymph nodes remain unchanged. Moderate amount stool within the rectum is noted. There is co lonic diverticulosis without evidence for acute diverticulitis. No evidence for a bowel obstruction. Fat-containing umbilical and left lower quadrant ventral hernias are present. There is skin thickenin g and subcutaneous stranding of the lower anterior abdominal wall. No fluid collection is present. Th ere is no soft tissue gas. No acute fracture or suspicious lesion is identified within the visualized skeletal structures. IMPRESSION: 1. No urinary calculi or hydronephrosis. Stranding adjacent to the bladder, ureters and kidneys, as d escribed above. This could be correlated with urinalysis to exclude an infectious process. 2. No bowel obstruction. Colonic diverticulosis without evidence for acute diverticulitis. Moderate a mount of stool within the rectum. 3. Skin thickening and nonspecific subcutaneous stranding of the lower anterior abdominal wall. Event ration of the anterior abdominal wall with several fat-containing hernias, as described above. 4. No change in mildly enlarged bilateral iliac chain lymph nodes since prior CT. ACT 112: Negative or not required by law. Electronically signed by: Goyo Castillo M.D. 05/24/2022 7:10 PM
[2022-05-24] MEDS ORDERED: CEFEPIME 20 ML IV ONE (19:30)
[2022-05-24 19:44] LABS: HCO3 ABG 35 mmol/L (19-24); PCO2 ABG 56 mmHg (35-46); PO2 ABG 146 mmHg (80-95)
[2022-05-24 19:52] LABS: Allen Test Pos (Pos)
--- NOTE | 2022-05-24 20:02 | History & Physical Report ---
Date of Service May 24, 2022 Assessment & Plan (1) Pyelonephritis: Plan: 62yo female presenting with several days of increased lethargy, confusion. UA suggestive of infection. CT of the abdomen suggestive of ascending urinary infection. Patient is presently afebrile, HD stable, non-toxic in appearance. No sepsis presently. -Admit to medical -Follow cultures. Patient with history of Pseudomonas UTI -Continue Cefepime (2) Elevated troponin: Plan: Patient with mildly elevated HS-troponin of 14.1. She denies chest pain, SOB or palpitations. No acute ischemic findings on EKG. -Continue ASA 81mg po daily -Continue Atorvastatin 40mg po daily -Continue Metoprolol 50mg po daily -Repeat troponin to document trend (3) Chronic respiratory failure with hypoxia and hypercapnia: Plan: Presently with no SOB. Adequate oxygenation -Continue to monitor -Continue home O2 -Albuterol PRN (4) Venous stasis ulcers of both lower extremities: Plan: Improving. Dressings in place -Continue wound care daily and as needed (5) Seizure disorder: Plan: Chronic. Stable -Continue keppra -Level pending -Continue Topamax -Level pending (6) Diabetes mellitus, type II: Plan: Chronic -Lantus 8u BID -ISS -Check HgbA1C (7) Hypertension: Plan: Blood pressure stable -Continue Metoprolol and Spironolactone -Continue to monitor (8) NICM (nonischemic cardiomyopathy): Plan: Compensated -Continue Metoprolol, Spironolactone (9) Asthma: Plan: Chronic. Stable -Albuterol PRN -Continue home O2 History of Present Illness Chief Complaint: confusion Primary Care Provider: Trisha Castillo MD Gilma Toro is a 62yo female with history of DM, Seizure, Asthma, Dementia. She lives at home with a roommate. She presents today with family with complaint of 2-3 days of worsening cognition - increased sleepiness and confusion as well as decreased mobility and activity. Patient also reported to be sweating much and nausea. No report of fever, chills, chest pain, cough or SOB. No additional complaints at this time. ER Course: Cefepime, Daptomycin, Zofran, Pepcid Allergies Allergy/AdvReac Type Severity Reaction Status Date / Time acetaminophen Allergy Severe Unresponsiv Verified 05/24/22 18:01 [From Tylenol-Codeine] e ceftaroline fosamil Allergy Mild ITCHING Verified 05/24/22 18:01 HANDS latex Allergy Mild Unknown Verified 05/24/22 18:01 SABINE Inhibitors Allergy Unknown Unknown Verified 05/24/22 18:01 codeine Allergy Unknown Unknown Verified 05/24/22 18:01 erythromycin base Allergy Unknown Unknown Verified 05/24/22 18:01 Iodinated Contrast Media Allergy Unknown Unknown Verified 05/24/22 18:01 Iodine and Iodide Containing Allergy Unknown Unknown Verified 05/24/22 18:01 Produc morphine Allergy Unknown Unknown Verified 05/24/22 18:01 Penicillins AdvReac Intermediate MAKES HER Verified 05/24/22 18:01 "FUNNY IN THE HEAD" SABINE Inhibitors Allergy Unknown Unknown Uncoded 05/24/22 18:01 Contrast Media Ready-Box MISC Allergy Unknown Unknown Uncoded 05/24/22 18:01 Erythromyci Allergy Unknown Unknown Uncoded 05/24/22 18:01 Latex Allergy Unknown Unknown Uncoded 05/24/22 18:01 Penicillins Allergy Unknown Unknown Uncoded 05/24/22 18:01 Home Medications Medication Instructions Recorded Confirmed Type topiramate 100 mg tablet (Topamax) 100 mg PO UD 06/26/18 05/24/22 History furosemide 40 mg tablet (Lasix) 40 mg PO QAM 03/13/19 05/24/22 History metoprolol succinate 50 mg 50 mg PO DAILY #30 tabs 03/21/19 05/24/22 Rx tablet,extended release 24 hr (Toprol XL) spironolactone 25 mg tablet 12.5 mg PO DAILY #0 tabs 03/21/19 05/24/22 Rx albuterol sulfate 90 mcg/actuation 2 puffs inhalation QID PRN 01/25/20 05/24/22 History aerosol inhaler Shortness Of Breath Or Wheezing nitroglycerin 0.4 mg sublingual 0.4 mg sublingual Q5M PRN Chest 01/25/20 History tablet Pain aspirin 81 mg tablet,delayed 81 mg PO DAILY 08/12/20 05/24/22 History release cyanocobalamin (vitamin B-12) 1,000 mcg PO DAILY 08/12/20 05/24/22 History 1,000 mcg tablet (Vitamin B-12) cyanocobalamin (vitamin B-12) 1,000 mcg IM Q30D 08/12/20 05/24/22 History 1,000 mcg/mL injection solution ferrous sulfate 325 mg (65 mg 325 mg PO DAILY 08/12/20 05/24/22 History iron) tablet nystatin 100,000 unit/gram topical 1 applic topical BID 08/12/20 05/24/22 History powder atorvastatin 40 mg tablet 40 mg PO HS 10/15/21 05/24/22 History levetiracetam 1,000 mg tablet 1,000 mg PO BID 10/15/21 05/24/22 History sitagliptin 50 mg-metformin 500 mg 1 tab PO DAILY 10/15/21 05/24/22 History tablet (Janumet) multivitamin with minerals-folic 2 tab PO DAILY 05/24/22 05/24/22 History acid 200 mcg chewable tablet (Adult Multivitamin Gummies) Past Med/Surg History Medical History Adenoma of large intestine Asthma Cardiomyopathy Cellulitis 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, managed as type 2 Diverticulosis DVT (deep venous thrombosis) Encephalopathy GERD (gastroesophageal reflux disease) Hyperlipidemia LDL goal <100 Left bundle branch block (LBBB) Lymphedema Mixed conductive and sensorineural hearing loss of left ear with restricted hearing of right ear MSSA (methicillin susceptible Staphylococcus aureus) Obesity Rectal polyp Seizure Sleep apnea Systolic CHF Thyroid nodule Surgical History H/O sinus surgery H/O: hysterectomy Tubal ligation status Family History Father Hypertension Stroke Sister Seizure Brother Seizure Mother Leukemia Social History Smoking Status: Smoker, status unknown Second Hand Exposure: No; Preferred Language: Danish 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 marital status: Life Partner Current Living Situation: Family and Other Current Living Situation Comment: roomate/ boyfriend How many Children do You have: 4 Feels Safe at Home: Yes Assistive Devices: Oxygen - Continuous and Wheelchair Review of Systems Review of Systems: All systems reviewed & are unremarkable except as noted in HPI & below Physical Exam Physical Exam: General: patient obese, resting comfortably, NAD, non-toxic in appearance, AA&O to person and place, answers most questions appropriately Skin: warm, dry, Stage II gluteal ulcers x 2, labia red and inflamed, no bl eeding HEENT: NC/AT, PERRL, EOMI, anicteric sclera, conjunctiva without injection, external ear normal to inspection and nontender, nares patent, moist mucus membranes, poor dentition, no oropharyngeal lesions, neck supple, trachea midline, no LAD, no thyromegaly, no JVD Heart: +S1/S2, regular, no m/r/g Lungs: equal air entry bilaterally, no rales/rhonchi/wheezes Abd: +BS, soft, NT/ND, no masses/organomegaly/ascites Ext: warm, 2+ pulses in UE/LE bilaterally, no clubbing/cyanosis or edema, leg dressings in place Neuro: nonfocal, patient AA&O x 2, speech intact, no facial droop, moving all extremities on command with equal strength 5/5 Results & Data Results & Data ([facility]) Vital Signs (Past 12 Hours) Vital Signs Temp Pulse Pulse Resp BP Pulse Ox O2 Del Method 05/24/22 18:08 96 H 16 96 Nasal Cannula 05/24/22 15:18 100 H 16 100 Nasal Cannula 05/24/22 15:18 100 Nasal Cannula 05/24/22 15:18 37 C 101 H 16 105/63 100 Nasal Cannula O2 Flow Rate 05/24/22 18:08 2 05/24/22 15:18 2 05/24/22 15:18 2 05/24/22 15:18 2 Laboratory Results Laboratory Results WBC 9.22 K/ul (4.8-10.8) 05/24/22 16:16 RBC 3.81 M/uL (3.93-5.22) L 05/24/22 16:16 Hgb 9.9 g/dl (12.0-16.0) L 05/24/22 16:16 Hct 32.2 % (34.1-44.9) L 05/24/22 16:16 MCV 84.5 fL (80.0-100.0) 05/24/22 16:16 MCH 26.0 pg (25.0-34.0) 05/24/22 16:16 MCHC 30.7 g/dL (32.0-36.0) L 05/24/22 16:16 RDW Std Deviation 43.9 fL (36.4-46.3) 05/24/22 16:16 RDW Coeff of Ewa 14.3 % (11.5-14.5) 05/24/22 16:16 Plt Count 199 K/uL (130-400) 05/24/22 16:16 MPV 10.8 fL (9.4-12.3) 05/24/22 16:16 Immature Gran % (Auto) 0.4 % 05/24/22 16:16 Neut % (Auto) 87.3 % 05/24/22 16:16 Lymph % (Auto) 5.0 % 05/24/22 16:16 [place] % (Auto) 6.6 % 05/24/22 16:16 Eos % (Auto) 0.4 % 05/24/22 16:16 Baso % (Auto) 0.3 % 05/24/22 16:16 Neut # (Auto) 8.04 K/uL (1.4-6.5) H 05/24/22 16:16 Lymph # (Auto) 0.46 K/uL (1.2-3.4) L 05/24/22 16:16 [place] # (Auto) 0.61 K/uL (0.24-0.82) 05/24/22 16:16 Eos # (Auto) 0.04 K/uL (0-0.50) 05/24/22 16:16 Baso # (Auto) 0.03 K/uL (0-0.2) 05/24/22 16:16 Immature Gran # (Auto) 0.04 K/uL (0.00-0.02) H 05/24/22 16:16 ABG pH 7.40 (7.35-7.45) 05/24/22 19:20 ABG pCO2 56 mmHg (35-46) H 05/24/22 19:20 ABG pO2 146 mmHg (80-95) H 05/24/22 19:20 ABG HCO3 35 mmol/L (19-24) H 05/24/22 19:20 ABG O2 Saturation 99.0 % (90-95) H 05/24/22 19:20 ABG Base Excess 8.0 mEq/L (-9-1.8) H 05/24/22 19:20 [place] Test Pos (Pos) 05/24/22 19:20 Oxygen Given 2l 05/24/22 19:20 Sodium 136 mmol/L (136-145) 05/24/22 16:16 Potassium 3.7 mmol/L (3.5-5.1) 05/24/22 16:16 Chloride 95 mmol/L (98-107) L 05/24/22 16:16 Carbon Dioxide 35 mmol/L (21-32) H 05/24/22 16:16 Anion Gap 6 (3-11) 05/24/22 16:16 BUN 24 mg/dl (6-23) H 05/24/22 16:16 Creatinine 1.10 mg/dl (0.6-1.2) 05/24/22 16:16 Est Cr Clr Drug Dosing 56.2 ml/min 05/24/22 16:16 Est GFR ( Amer) 61.4 ml/min 05/24/22 16:16 Est GFR (Non-Af Amer) 53.0 ml/min 05/24/22 16:16 BUN/Creatinine Ratio 21.8 (10-20) H 05/24/22 16:16 Glucose 191 mg/dl (70-99(Fasting)) H 05/24/22 16:16 POC Glucose 212 mg/dl (70-99) H 05/24/22 16:41 Lactate 0.7 mmol/L (0.4-2.0) 05/24/22 19:20 Calcium 9.0 mg/dl (8.5-10.1) 05/24/22 16:16 Phosphorus 3.1 mg/dl (2.5-4.9) 05/24/22 16:16 Magnesium 1.9 mg/dl (1.7-2.4) 05/24/22 16:16 Total Bilirubin 1.0 mg/dl (0.2-1.0) 05/24/22 16:16 Direct Bilirubin 0.2 mg/dl (0-0.2) 05/24/22 16:16 AST 14 U/L (13-39) 05/24/22 16:16 ALT 9 U/L (7-52) 05/24/22 16:16 Alkaline Phosphatase 96 U/L (34-104) 05/24/22 16:16 Ammonia 66.0 umol/L (18-72) 05/24/22 19:20 Troponin I High Sens 14.1 pg/ml (0-14) H D 05/24/22 16:16 Total Protein 7.3 gm/dl (6.0-8.3) 05/24/22 16:16 Albumin 3.4 gm/dl (3.4-5.0) 05/24/22 16:16 Globulin 3.9 gm/dl (2.5-4.0) 05/24/22 16:16 Albumin/Globulin Ratio 0.9 (0.9-2) 05/24/22 16:16 Lipase 38 U/L (11-82) 05/24/22 16:16 Procalcitonin 4.28 ng/ml (0-0.5) H 05/24/22 19:20 Urine Color Yellow 05/24/22 17:20 Urine Appearance Turbid (Clear) A 05/24/22 17:20 Urine pH 7.0 (4.5-7.5) 05/24/22 17:20 Ur Specific [place] 1.012 (1.000-1.030) 05/24/22 17:20 Urine Protein 1+ (Negative) H 05/24/22 17:20 Urine Glucose (UA) Negative (Negative) 05/24/22 17:20 Urine Ketones Negative (Negative) 05/24/22 17:20 Urine Blood 2+ (Negative) H 05/24/22 17:20 Urine Nitrite Positive (Negative) A 05/24/22 17:20 Urine Bilirubin Negative (Negative) 05/24/22 17:20 Urine Urobilinogen Negative (Negative) 05/24/22 17:20 Ur Leukocyte Esterase 3+ (Negative) H 05/24/22 17:20 Urine WBC (Auto) >30 /hpf (0-5) H 05/24/22 17:20 Urine RBC (Auto) 5-10 /hpf (0-4) H 05/24/22 17:20 U Hyaline Cast (Auto) 10-30 /lpf (0-5) H 05/24/22 17:20 U Epithel Cells (Auto) 20-30 /lpf (0-5) H 05/24/22 17:20 Urine Bacteria (Auto) 4+ (Negative) H 05/24/22 17:20 Urine Yeast Not Reportable 05/24/22 17:20 SARS-CoV-2, RNA, NAAT NEGATIVE (NEGATIVE) 05/24/22 18:52 Impressions Chest X-Ray 05/24/22 15:49 XR chest 1V portable HISTORY: Atypical Chest Pain COMPARISON: Chest 04/02/2022. FINDINGS: Slightly rotated study. No pneumothorax. No pleural effusions. The hea rt is mildly enlarged. This remains unchanged. There is mild central pulmonary vascular congestion without overt edema. No new focal lung consolidations to suggest pneumonia. IMPRESSION: Cardiomegaly with mild congestive change. This is similar to the prior study. ACT 112: Negative or not required by law. Electronically signed by: Laurent Caballero M.D. 05/24/2022 4:10 PM Abdomen/Pelvis CT 05/24/22 17:55 CT OF THE ABDOMEN AND PELVIS WITHOUT CONTRAST CLINICAL HISTORY: weakness, nausea, uti COMPARISON STUDY: CT of the abdomen and pelvis September 12, 2020. TECHNIQUE: Axial images of the abdomen and pelvis were obtained without IV contrast. Images were reviewed in the axial, sagittal, and coronal planes. Automated exposure control was utilized for the study. A dose lowering technique was utilized adhering to the principles of ALARA. FINDINGS: Lung bases are unremarkable. Small pericardial effusion has decreased in size since prior exam. There is cardiomegaly. No pneumatosis, free air or portal venous gas is present. No renal, ureteral or bladder calculi are present. Mild bladder wall thickening with mild adjacent infiltration is noted. There is also mild stranding adjacent to the ureters and kidneys. Evaluation of the remainder of the abdomen and pelvis is suboptimal on this unenhanced examination. Liver, spleen, adrenal glands and pancreas are unremarkable. There is no biliary or pancreatic ductal dilatation. Calcified gallstone within the gallbladder is noted. No evidence for acute cholecystitis. Mildly enlarged bilat eral iliac chain lymph nodes remain unchanged. Moderate amount stool within the rectum is noted. There is colonic diverticulosis without evidence for acute diverticulitis. No evidence for a bowel obstruction. Fat-containing umbilical and left lower quadrant ventral hernias are present. There is skin thickening and subcutaneous stranding of the lower anterior abdominal wall. No fluid collection is present. There is no soft tissue gas. No acute fracture or suspicious lesion is identified within the visualized skeletal structures. IMPRESSION: 1. No urinary calculi or hydronephrosis. Stranding adjacent to the bladder, ureters and kidneys, as described above. This could be correlated with urinalysis to exclude an infectious process. 2. No bowel obstruction. Colonic diverticulosis without evidence for acute diverticulitis. Moderate amount of stool within the rectum. 3. Skin thickening and nonspecific subcutaneous stranding of the lower anterior abdominal wall. Eventration of the anterior abdominal wall with several fat- containing hernias, as described above. 4. No change in mildly enlarged bilateral iliac chain lymph nodes since prior CT. ACT 112: Negative or not required by law. Electronically signed by: Goyo Castillo M.D. 05/24/2022 7:[address] 05/24/22 18:18 CT OF THE HEAD WITHOUT CONTRAST CLINICAL HISTORY: Altered mental status. COMPARISON STUDY: MRI of the brain May 07, 2016. Head CT April 02, 2022. CT DOSE: 884.08 mGy.cm TECHNIQUE: Helical axial images of the head were obtained without IV contrast. Automated exposure control was utilized for the study. A dose lowering technique was utilized adhering to the principles of ALARA. FINDINGS: No acute intracranial hemorrhage, midline shift or mass effect is present. The ventricular system is unremarkable. The basal cisterns are patent. No extra-axial collections are present. There are no findings to suggest acute dural sinus thrombosis or acute territorial infarct. No significant calvarial abnormalities are present. Ossification along the falx is incidentally noted Postoperative findings within the sinuses are noted. There is no evidence for s inusitis. Left mastoid air cells are nearly entirely opacified. This is slightly increased since CT of April 02, 2022. There is also fluid within the left middle ear. Small amount of fluid within the right mastoid air cells is unchanged. IMPRESSION: 1. No acute intracranial findings. No change in appearance of the brain. 2. Increase in a left mastoid effusion. Fluid within the left middle ear. Small amount of fluid within the right mastoid air cells. ACT 112: Negative or not required by law. Electronically signed by: Goyo Castillo M.D. 05/24/2022 7:00 PM Code Status & VTE Plan VTE Prophylaxis Plan VTE Prophylaxis will be ordered: Yes PG Care Time/CCT Total # of Minutes Spent Total Time Spent with Patient: Total time spent is greater than 50% in coordination of care (as documented) at patient's floor/unit and/or counseling patient: Coding Level of Care Code 38466 Initial Inpt Care Lvl 3 Diagnoses Pyelonephritis N12 Elevated troponin R77.8 Chronic respiratory failure with hypoxia and hypercapnia J96.11; J96.12 Venous stasis ulcers of both lower extremities I83.019; I83.029; L97.919; L97 .929 Seizure disorder G40.909 Diabetes mellitus, type II E11.9 Diabetes mellitus fpc insulin use: without fpc use Diabetes mellitus complication status: without complication Hypertension I10 Hypertension type: essential hypertension NICM (nonischemic cardiomyopathy) I42.8 Asthma J45.909 Asthma severity: unspecified severity Asthma persistence: unspecified Asthma complication type: uncomplicated (1) 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
[2022-05-24] MEDS ORDERED: GLUCAGON FOR INJ 1 MG VIAL SQ PRN (22:21)
[2022-05-24] MEDS ORDERED: CARBOHYDRATES FOR HYPOGLYCEMIA PO PRN (22:21)
[2022-05-24] MEDS ORDERED: GLUCOSE 40% GEL 15 GM TUBE PO PRN (22:21)
[2022-05-24] MEDS ORDERED: ONDANSETRON INJ 2 MG/ML 2 ML VIAL IV PRN (22:21)
[2022-05-24] MEDS ORDERED: GLUCOSE 10 TAB/TUBE PO PRN (22:21)
[2022-05-24] MEDS ORDERED: ALBUTEROL HFA 8 GM INHALER INH PRN (22:21)
[2022-05-24] MEDS ORDERED: DEXTROSE 50% 50 ML SYRINGE IV PRN (22:21)
[2022-05-25] MEDS: ATORVASTATIN 40 MG TAB PO SCH ×2 (01:27→21:50)
[2022-05-25] MEDS: ENOXAPARIN INJ 40 MG/0.4 ML SYR SQ SCH ×3 (01:28→21:51)
[2022-05-25] MEDS: levETIRAcetam 500 MG TAB PO SCH ×3 (01:28→21:50)
[2022-05-25] MEDS: NYSTATIN POWDER 15GM BTL EXT SCH ×3 (01:28→21:51)
[2022-05-25] MEDS: INSULIN ASPART PER UNIT SC SCH ×5 (01:30→21:47)
[2022-05-25] MEDS: LANTUS PER UNIT CHARGE SQ SCH ×3 (01:30→21:47)
--- NOTE | 2022-05-25 07:50 | Hospitalist Progress Note ---
Date of Service May 25, 2022 Assessment & Plan (1) Pyelonephritis: Plan: 62yo female presenting with several days of increased lethargy, confusion. Prior COVID-19 infection end of February into March, no treatment required and d/c from ER UA w/ evidence for infection CTAP w/ ascending urinary infection, no stones Blood cultures and urine cultures with E coli Was on cefepime (hx pseudomonas), discussed with pharmacy and switching to ceftriaxone based on sensitivities WBC borderline w/ L shift on admit --> repeat wnl and patient remains afebrile Wound RN also consulted for b/l venous stasis changes, also has stage II gluteal Supportive care PT/OT consults Continue inpatient stay (2) Elevated troponin: Plan: Patient with mildly elevated HS-troponin of 14.1. She denies chest pain, SOB (above baseline) or palpitations. No acute ischemic findings on EKG. Trop 14.1--> 20.7, suspect demand from infection, but also noted patient does have history of iron deficiency anemia as well -- iron studies added to am blood iron 13, trans % sat low at 5 Venofer 200mg IV scheduled for today Continue ASA 81mg po daily Continue Atorvastatin 40mg po daily Continue Metoprolol 50mg po daily EKG w/ CP (3) Chronic respiratory failure with hypoxia and hypercapnia: Plan: Presently with no SOB. Adequate oxygenation on usual 2L Incentive spirometer added CXR w/ some congestion, however would hold off on lasix for now as not increased work of breathing but may need to consider dose of diuretic Venofer IV x 1 scheduled for above, continue AHA diet Albuterol HFA available prn Added incentive spirometer Continue to monitor (4) Venous stasis ulcers of both lower extremities: Plan: Improving. Dressings in place -Continue wound care daily and as needed Wound RN consulted (of note, prior wound cx jul 2021 w/ the pseudomonas, sept w/ MRSA and has been following locally w/ wound center) (5) Seizure disorder: Plan: Chronic. Stable Continue keppra, topamax Levels pending for both (6) Diabetes mellitus, type II: Plan: Chronic, A1c w/ AM labs Hold home injectable Continue lantus 8u BID, ISS while inpatient BSGs acceptable and will monitor (7) Hypertension: Plan: Blood pressure stable but borderline low this morning, asymptomatic but is fatigued Continue metoprolol and spironolactone for now in light of congestive changes on CXR and monitor (8) NICM (nonischemic cardiomyopathy): Plan: Compensated -Continue Metoprolol, Spironolactone (9) Asthma: Plan: Chronic. Stable -Albuterol PRN -Continue home O2 (10) Anemia: Plan: chronic, had been on PO iron in past, talks about IV in outpatient notes checked Iron panel as above given hgb in 8s, no active signs of bleeding Venofer IV x 1 for today, monitor cbc in am as well as check b12 Plan continued inpatient stay Admission and Anticipated Discharge Date Admission Date: May 24, 2022 Supervising Physician Co-Signing Physician Notes PA Supervision Note: I did not personally see or examine the patient today, but I verified all macias points of ZULEMA Michaud's assessment and plan with the following exceptions/additions: None Subjective Patient evaluated this morning. COmplaints of not getting anything really to eat last evening but endorses she did get something this morning. Wanting her coffee warmed up. States she does feel cold, temp in room set to 64 degrees and adjusted for comfort. States baseline level of shortness of breath, not increased from prior. Denies any bleeding. Checking iron and ordered IV venofer. Per nursing, very sleepy this morning and patient does endorse fatigue. Di scussed blood and urine cultures positive and will continue antibiotics/monitoring. B/L LE wrapped and consulting wound RN for continued monitoring/documentation and patient does follow with wound care outpatient. No fever, chest pain, lightheadedness/dizziness, headache, blurry vision, abdominal pain, nausea or vomiting at this time. Regarding fluid in the ear, denies balance problems, states has been evaluated and wax removed and they believe she needs a hearing aide. No worse hearing on the left compared to the right. Questions/concerns addressed. Review of Systems Review of Systems: All systems reviewed & are unremarkable except as noted in HPI & below Physical Exam Physical Exam: General: WD, fatigued appearing female resting in bed, NAD and awoken easily to name HEENT: head normocephalic, atraumatic, mmm, trachea midline without deviation, thick neck, pupils equal, anicteric, ears nontender, hearing slightly diminished Resp: not tachypneic, no cough, lung sounds diminished in the bases, poor inspiratory effort, faint end expiratory wheezing, on typical 2L NC, SpO2 97% CV: regular rhythm, tachycardic (rate 102bpm), no m/r/g, edema difficult to assess given b/l LE wrapped due to chronic venous stasis ulcers, pulses palpable, no calf tenderness GI: +BS, soft, nontender MSK/Neuro; moves all extremities, no focal deficits Skin: gluteal ulcer stage II, erythema to labia no drainage/purulence, b/l LE wrapped Psych: alert to person/place, intellectual disability Results & Data Results & Data ([facility]) Vital Signs (Past 12 Hours) Vital Signs Temp Pulse Pulse Pulse Resp BP BP 05/25/22 07:16 36.6 C 105 H 14 101/57 L 05/25/22 01:00 05/25/22 01:00 37.3 C 104 H 18 112/59 L 05/25/22 00:00 110 H 18 99/64 L 05/24/22 23:06 119 H 18 93/59 L 05/24/22 22:08 109 H 15 114/75 05/24/22 20:58 105 H 18 114/82 05/24/22 20:12 100 H 19 Pulse Ox O2 Del Method O2 Flow Rate 05/25/22 07:16 97 Room Air 05/25/22 01:00 Nasal Cannula 2 05/25/22 01:00 97 Nasal Cannula 2 05/25/22 00:00 97 Nasal Cannula 2 05/24/22 23:06 94 Nasal Cannula 2 05/24/22 22:08 93 Nasal Cannula 2 05/24/22 20:58 96 Nasal Cannula 2 05/24/22 20:12 95 Nasal Cannula 2 Laboratory Results 05/25/22 05/25/22 05/25/22 Range/Units 08:45 08:45 08:45 WBC (4.8-10.8) K/ul RBC (3.93-5.22) M/uL Hgb (12.0-16.0) g/dl Hct (34.1-44.9) % MCV (80.0-100.0) fL MCH (25.0-34.0) pg MCHC (32.0-36.0) g/dL RDW Std Deviation (36.4-46.3) fL RDW Coeff of Ewa (11.5-14.5) % Plt Count (130-400) K/uL MPV (9.4-12.3) fL Immature Gran % (Auto) % Neut % (Auto) % Lymph % (Auto) % Wake % (Auto) % Eos % (Auto) % Baso % (Auto) % Neut # (Auto) (1.4-6.5) K/uL Lymph # (Auto) (1.2-3.4) K/uL Wake # (Auto) (0.24-0.82) K/uL Eos # (Auto) (0-0.50) K/uL Baso # (Auto) (0-0.2) K/uL Immature Gran # (Auto) (0.00-0.02) K/uL ABG pH (7.35-7.45) ABG pCO2 (35-46) mmHg ABG pO2 (80-95) mmHg ABG HCO3 (19-24) mmol/L ABG O2 Saturation (90-95) % ABG Base Excess (-9-1.8) mEq/L [place] Test (Pos) Oxygen Given Sodium 138 (136-145) mmol/L Potassium 3.6 (3.5-5.1) mmol/L Chloride 100 (98-107) mmol/L Carbon Dioxide 32 (21-32) mmol/L Anion Gap 6 (3-11) BUN 23 (6-23) mg/dl Creatinine 1.04 (0.6-1.2) mg/dl Est Cr Clr Drug Dosing 57.2 ml/min Est GFR ( Amer) 65.8 ml/min Est GFR (Non-Af Amer) 56.7 ml/min BUN/Creatinine Ratio 22.1 H (10-20) Glucose 124 H (70-99(Fasting)) mg/dl POC Glucose (70-99) mg/dl Estimat Average Glucose Pending Hemoglobin A1c Pending Lactate (0.4-2.0) mmol/L Calcium 8.6 (8.5-10.1) mg/dl Phosphorus (2.5-4.9) mg/dl Magnesium (1.7-2.4) mg/dl Iron 13 L (35-150) mcg/dl TIBC 244 L (250-450) mcg/dl Unsaturated IBC 231 (155-355) mcg/dl Transferrin % Sat 5 L (15-50) % Ferritin 85.2 (8-388) ng/ml Total Bilirubin (0.2-1.0) mg/dl Direct Bilirubin (0-0.2) mg/dl AST (13-39) U/L ALT (7-52) U/L Alkaline Phosphatase (34-104) U/L Ammonia (18-72) umol/L Troponin I High Sens 20.7 H (0-14) pg/ml Total Protein (6.0-8.3) gm/dl Albumin (3.4-5.0) gm/dl Globulin (2.5-4.0) gm/dl Albumin/Globulin Ratio (0.9-2) Lipase (11-82) U/L Procalcitonin (0-0.5) ng/ml Urine Color Urine Appearance (Clear) Urine pH (4.5-7.5) Ur Specific Dale (1.000-1.030) Urine Protein (Negative) Urine Glucose (UA) (Negative) Urine Ketones (Negative) Urine Blood (Negative) Urine Nitrite (Negative) Urine Bilirubin (Negative) Urine Urobilinogen (Negative) Ur Leukocyte Esterase (Negative) Urine WBC (Auto) (0-5) /hpf Urine RBC (Auto) (0-4) /hpf U Hyaline Cast (Auto) (0-5) /lpf U Epithel Cells (Auto) (0-5) /lpf Urine Bacteria (Auto) (Negative) Urine Yeast Topiramate Levetiracetam Enterobacterales (PCR) (NotDetected) E. coli (PCR) (NotDetected) Klebsiella oxytoca PCR (NotDetected) SARS-CoV-2, RNA, NAAT (NEGATIVE) mcr-1 Colistin Res Gene PCR (NotDetected) blaIMP Car res Gene PCR (NotDetected) KPC-Carbap Res Gene PCR (NotDetected) blaNDM Car Res Gene PCR (NotDetected) OXA-48 Carbapenem Resis Gene (PCR) (NotDetected) blaVIM Car Res Gene PCR (NotDetected) CTX-M Gene Resistance (PCR) (NotDetected) Bld Cult ID Panel PCR (NotDetected) 05/25/22 05/25/22 05/25/22 Range/Units 08:45 08:06 01:26 WBC 7.39 (4.8-10.8) K/ul RBC 3.40 L (3.93-5.22) M/uL Hgb 8.7 L (12.0-16.0) g/dl Hct 29.2 L (34.1-44.9) % MCV 85.9 (80.0-100.0) fL MCH 25.6 (25.0-34.0) pg MCHC 29.8 L (32.0-36.0) g/dL RDW Std Deviation 44.2 (36.4-46.3) fL RDW Coeff of Ewa 14.2 (11.5-14.5) % Plt Count 167 (130-400) K/uL MPV 10.8 (9.4-12.3) fL Immature Gran % (Auto) 0.4 % Neut % (Auto) 77.7 % Lymph % (Auto) 11.0 % Wake % (Auto) 9.3 % Eos % (Auto) 0.9 % Baso % (Auto) 0.7 % Neut # (Auto) 5.74 (1.4-6.5) K/uL Lymph # (Auto) 0.81 L (1.2-3.4) K/uL Wake # (Auto) 0.69 (0.24-0.82) K/uL Eos # (Auto) 0.07 (0-0.50) K/uL Baso # (Auto) 0.05 (0-0.2) K/uL Immature Gran # (Auto) 0.03 H (0.00-0.02) K/uL ABG pH (7.35-7.45) ABG pCO2 (35-46) mmHg ABG pO2 (80-95) mmHg ABG HCO3 (19-24) mmol/L ABG O2 Saturation (90-95) % ABG Base Excess (-9-1.8) mEq/L [place] Test (Pos) Oxygen Given Sodium (136-145) mmol/L Potassium (3.5-5.1) mmol/L Chloride (98-107) mmol/L Carbon Dioxide (21-32) mmol/L Anion Gap (3-11) BUN (6-23) mg/dl Creatinine (0.6-1.2) mg/dl Est Cr Clr Drug Dosing ml/min Est GFR ( Amer) ml/min Est GFR (Non-Af Amer) ml/min BUN/Creatinine Ratio (10-20) Glucose (70-99(Fasting)) mg/dl POC Glucose 137 H 188 H (70-99) mg/dl Estimat Average Glucose Hemoglobin A1c Lactate (0.4-2.0) mmol/L Calcium (8.5-10.1) mg/dl Phosphorus (2.5-4.9) mg/dl Magnesium (1.7-2.4) mg/dl Iron (35-150) mcg/dl TIBC (250-450) mcg/dl Unsaturated IBC (155-355) mcg/dl Transferrin % Sat (15-50) % Ferritin (8-388) ng/ml Total Bilirubin (0.2-1.0) mg/dl Direct Bilirubin (0-0.2) mg/dl AST (13-39) U/L ALT (7-52) U/L Alkaline Phosphatase (34-104) U/L Ammonia (18-72) umol/L Troponin I High Sens (0-14) pg/ml Total Protein (6.0-8.3) gm/dl Albumin (3.4-5.0) gm/dl Globulin (2.5-4.0) gm/dl Albumin/Globulin Ratio (0.9-2) Lipase (11-82) U/L Procalcitonin (0-0.5) ng/ml Urine Color Urine Appearance (Clear) Urine pH (4.5-7.5) Ur Specific Dale (1.000-1.030) Urine Protein (Negative) Urine Glucose (UA) (Negative) Urine Ketones (Negative) Urine Blood (Negative) Urine Nitrite (Negative) Urine Bilirubin (Negative) Urine Urobilinogen (Negative) Ur Leukocyte Esterase (Negative) Urine WBC (Auto) (0-5) /hpf Urine RBC (Auto) (0-4) /hpf U Hyaline Cast (Auto) (0-5) /lpf U Epithel Cells (Auto) (0-5) /lpf Urine Bacteria (Auto) (Negative) Urine Yeast Topiramate Levetiracetam Enterobacterales (PCR) (NotDetected) E. coli (PCR) (NotDetected) Klebsiella oxytoca PCR (NotDetected) SARS-CoV-2, RNA, NAAT (NEGATIVE) mcr-1 Colistin Res Gene PCR (NotDetected) blaIMP Car res Gene PCR (NotDetected) KPC-Carbap Res Gene PCR (NotDetected) blaNDM Car Res Gene PCR (NotDetected) OXA-48 Carbapenem Resis Gene (PCR) (NotDetected) blaVIM Car Res Gene PCR (NotDetected) CTX-M Gene Resistance (PCR) (NotDetected) Bld Cult ID Panel PCR (NotDetected) 05/24/22 05/24/22 05/24/22 Range/Units 19:41 19:20 19:20 WBC (4.8-10.8) K/ul RBC (3.93-5.22) M/uL Hgb (12.0-16.0) g/dl Hct (34.1-44.9) % MCV (80.0-100.0) fL MCH (25.0-34.0) pg MCHC (32.0-36.0) g/dL RDW Std Deviation (36.4-46.3) fL RDW Coeff of Ewa (11.5-14.5) % Plt Count (130-400) K/uL MPV (9.4-12.3) fL Immature Gran % (Auto) % Neut % (Auto) % Lymph % (Auto) % Wake % (Auto) % Eos % (Auto) % Baso % (Auto) % Neut # (Auto) (1.4-6.5) K/uL Lymph # (Auto) (1.2-3.4) K/uL Wake # (Auto) (0.24-0.82) K/uL Eos # (Auto) (0-0.50) K/uL Baso # (Auto) (0-0.2) K/uL Immature Gran # (Auto) (0.00-0.02) K/uL ABG pH 7.40 (7.35-7.45) ABG pCO2 56 H (35-46) mmHg ABG pO2 146 H (80-95) mmHg ABG HCO3 35 H (19-24) mmol/L ABG O2 Saturation 99.0 H (90-95) % ABG Base Excess 8.0 H (-9-1.8) mEq/L [place] Test Pos (Pos) Oxygen Given 2l Sodium (136-145) mmol/L Potassium (3.5-5.1) mmol/L Chloride (98-107) mmol/L Carbon Dioxide (21-32) mmol/L Anion Gap (3-11) BUN (6-23) mg/dl Creatinine (0.6-1.2) mg/dl Est Cr Clr Drug Dosing ml/min Est GFR ( Amer) ml/min Est GFR (Non-Af Amer) ml/min BUN/Creatinine Ratio (10-20) Glucose (70-99(Fasting)) mg/dl POC Glucose (70-99) mg/dl Estimat Average Glucose Hemoglobin A1c Lactate (0.4-2.0) mmol/L Calcium (8.5-10.1) mg/dl Phosphorus (2.5-4.9) mg/dl Magnesium (1.7-2.4) mg/dl Iron (35-150) mcg/dl TIBC (250-450) mcg/dl Unsaturated IBC (155-355) mcg/dl Transferrin % Sat (15-50) % Ferritin (8-388) ng/ml Total Bilirubin (0.2-1.0) mg/dl Direct Bilirubin (0-0.2) mg/dl AST (13-39) U/L ALT (7-52) U/L Alkaline Phosphatase (34-104) U/L Ammonia 66.0 (18-72) umol/L Troponin I High Sens (0-14) pg/ml Total Protein (6.0-8.3) gm/dl Albumin (3.4-5.0) gm/dl Globulin (2.5-4.0) gm/dl Albumin/Globulin Ratio (0.9-2) Lipase (11-82) U/L Procalcitonin (0-0.5) ng/ml Urine Color Urine Appearance (Clear) Urine pH (4.5-7.5) Ur Specific Dale (1.000-1.030) Urine Protein (Negative) Urine Glucose (UA) (Negative) Urine Ketones (Negative) Urine Blood (Negative) Urine Nitrite (Negative) Urine Bilirubin (Negative) Urine Urobilinogen (Negative) Ur Leukocyte Esterase (Negative) Urine WBC (Auto) (0-5) /hpf Urine RBC (Auto) (0-4) /hpf U Hyaline Cast (Auto) (0-5) /lpf U Epithel Cells (Auto) (0-5) /lpf Urine Bacteria (Auto) (Negative) Urine Yeast Topiramate Levetiracetam Enterobacterales (PCR) DETECTED A (NotDetected) E. coli (PCR) DETECTED A (NotDetected) Klebsiella oxytoca PCR (NotDetected) SARS-CoV-2, RNA, NAAT (NEGATIVE) mcr-1 Colistin Res Gene PCR Not Detected (NotDetected) blaIMP Car res Gene PCR Not Detected (NotDetected) KPC-Carbap Res Gene PCR Not Detected (NotDetected) blaNDM Car Res Gene PCR Not Detected (NotDetected) OXA-48 Carbapenem Resis Gene (PCR) Not Detected (NotDetected) blaVIM Car Res Gene PCR Not Detected (NotDetected) CTX-M Gene Resistance (PCR) Not Detected (NotDetected) Bld Cult ID Panel PCR See PCR Comment (NotDetected) 05/24/22 05/24/22 05/24/22 Range/Units 19:20 19:20 19:20 WBC (4.8-10.8) K/ul RBC (3.93-5.22) M/uL Hgb (12.0-16.0) g/dl Hct (34.1-44.9) % MCV (80.0-100.0) fL MCH (25.0-34.0) pg MCHC (32.0-36.0) g/dL RDW Std Deviation (36.4-46.3) fL RDW Coeff of Ewa (11.5-14.5) % Plt Count (130-400) K/uL MPV (9.4-12.3) fL Immature Gran % (Auto) % Neut % (Auto) % Lymph % (Auto) % Wake % (Auto) % Eos % (Auto) % Baso % (Auto) % Neut # (Auto) (1.4-6.5) K/uL Lymph # (Auto) (1.2-3.4) K/uL Wake # (Auto) (0.24-0.82) K/uL Eos # (Auto) (0-0.50) K/uL Baso # (Auto) (0-0.2) K/uL Immature Gran # (Auto) (0.00-0.02) K/uL ABG pH (7.35-7.45) ABG pCO2 (35-46) mmHg ABG pO2 (80-95) mmHg ABG HCO3 (19-24) mmol/L ABG O2 Saturation (90-95) % ABG Base Excess (-9-1.8) mEq/L [place] Test (Pos) Oxygen Given Sodium (136-145) mmol/L Potassium (3.5-5.1) mmol/L Chloride (98-107) mmol/L Carbon Dioxide (21-32) mmol/L Anion Gap (3-11) BUN (6-23) mg/dl Creatinine (0.6-1.2) mg/dl Est Cr Clr Drug Dosing ml/min Est GFR ( Amer) ml/min Est GFR (Non-Af Amer) ml/min BUN/Creatinine Ratio (10-20) Glucose (70-99(Fasting)) mg/dl POC Glucose (70-99) mg/dl Estimat Average Glucose Hemoglobin A1c Lactate 0.7 (0.4-2.0) mmol/L Calcium (8.5-10.1) mg/dl Phosphorus (2.5-4.9) mg/dl Magnesium (1.7-2.4) mg/dl Iron (35-150) mcg/dl TIBC (250-450) mcg/dl Unsaturated IBC (155-355) mcg/dl Transferrin % Sat (15-50) % Ferritin (8-388) ng/ml Total Bilirubin (0.2-1.0) mg/dl Direct Bilirubin (0-0.2) mg/dl AST (13-39) U/L ALT (7-52) U/L Alkaline Phosphatase (34-104) U/L Ammonia (18-72) umol/L Troponin I High Sens (0-14) pg/ml Total Protein (6.0-8.3) gm/dl Albumin (3.4-5.0) gm/dl Globulin (2.5-4.0) gm/dl Albumin/Globulin Ratio (0.9-2) Lipase (11-82) U/L Procalcitonin 4.28 H (0-0.5) ng/ml Urine Color Urine Appearance (Clear) Urine pH (4.5-7.5) Ur Specific Dale (1.000-1.030) Urine Protein (Negative) Urine Glucose (UA) (Negative) Urine Ketones (Negative) Urine Blood (Negative) Urine Nitrite (Negative) Urine Bilirubin (Negative) Urine Urobilinogen (Negative) Ur Leukocyte Esterase (Negative) Urine WBC (Auto) (0-5) /hpf Urine RBC (Auto) (0-4) /hpf U Hyaline Cast (Auto) (0-5) /lpf U Epithel Cells (Auto) (0-5) /lpf Urine Bacteria (Auto) (Negative) Urine Yeast Topiramate Pending Levetiracetam Pending Enterobacterales (PCR) (NotDetected) E. coli (PCR) (NotDetected) Klebsiella oxytoca PCR (NotDetected) SARS-CoV-2, RNA, NAAT (NEGATIVE) mcr-1 Colistin Res Gene PCR (NotDetected) blaIMP Car res Gene PCR (NotDetected) KPC-Carbap Res Gene PCR (NotDetected) blaNDM Car Res Gene PCR (NotDetected) OXA-48 Carbapenem Resis Gene (PCR) (NotDetected) blaVIM Car Res Gene PCR (NotDetected) CTX-M Gene Resistance (PCR) (NotDetected) Bld Cult ID Panel PCR (NotDetected) 05/24/22 05/24/22 05/24/22 Range/Units 18:52 17:20 16:41 WBC (4.8-10.8) K/ul RBC (3.93-5.22) M/uL Hgb (12.0-16.0) g/dl Hct (34.1-44.9) % MCV (80.0-100.0) fL MCH (25.0-34.0) pg MCHC (32.0-36.0) g/dL RDW Std Deviation (36.4-46.3) fL RDW Coeff of Ewa (11.5-14.5) % Plt Count (130-400) K/uL MPV (9.4-12.3) fL Immature Gran % (Auto) % Neut % (Auto) % Lymph % (Auto) % Wake % (Auto) % Eos % (Auto) % Baso % (Auto) % Neut # (Auto) (1.4-6.5) K/uL Lymph # (Auto) (1.2-3.4) K/uL Wake # (Auto) (0.24-0.82) K/uL Eos # (Auto) (0-0.50) K/uL Baso # (Auto) (0-0.2) K/uL Immature Gran # (Auto) (0.00-0.02) K/uL ABG pH (7.35-7.45) ABG pCO2 (35-46) mmHg ABG pO2 (80-95) mmHg ABG HCO3 (19-24) mmol/L ABG O2 Saturation (90-95) % ABG Base Excess (-9-1.8) mEq/L [place] Test (Pos) Oxygen Given Sodium (136-145) mmol/L Potassium (3.5-5.1) mmol/L Chloride (98-107) mmol/L Carbon Dioxide (21-32) mmol/L Anion Gap (3-11) BUN (6-23) mg/dl Creatinine (0.6-1.2) mg/dl Est Cr Clr Drug Dosing ml/min Est GFR ( Amer) ml/min Est GFR (Non-Af Amer) ml/min BUN/Creatinine Ratio (10-20) Glucose (70-99(Fasting)) mg/dl POC Glucose 212 H (70-99) mg/dl Estimat Average Glucose Hemoglobin A1c Lactate (0.4-2.0) mmol/L Calcium (8.5-10.1) mg/dl Phosphorus (2.5-4.9) mg/dl Magnesium (1.7-2.4) mg/dl Iron (35-150) mcg/dl TIBC (250-450) mcg/dl Unsaturated IBC (155-355) mcg/dl Transferrin % Sat (15-50) % Ferritin (8-388) ng/ml Total Bilirubin (0.2-1.0) mg/dl Direct Bilirubin (0-0.2) mg/dl AST (13-39) U/L ALT (7-52) U/L Alkaline Phosphatase (34-104) U/L Ammonia (18-72) umol/L Troponin I High Sens (0-14) pg/ml Total Protein (6.0-8.3) gm/dl Albumin (3.4-5.0) gm/dl Globulin (2.5-4.0) gm/dl Albumin/Globulin Ratio (0.9-2) Lipase (11-82) U/L Procalcitonin (0-0.5) ng/ml Urine Color Yellow Urine Appearance Turbid A (Clear) Urine pH 7.0 (4.5-7.5) Ur Specific Dale 1.012 (1.000-1.030) Urine Protein 1+ H (Negative) Urine Glucose (UA) Negative (Negative) Urine Ketones Negative (Negative) Urine Blood 2+ H (Negative) Urine Nitrite Positive A (Negative) Urine Bilirubin Negative (Negative) Urine Urobilinogen Negative (Negative) Ur Leukocyte Esterase 3+ H (Negative) Urine WBC (Auto) >30 H (0-5) /hpf Urine RBC (Auto) 5-10 H (0-4) /hpf U Hyaline Cast (Auto) 10-30 H (0-5) /lpf U Epithel Cells (Auto) 20-30 H (0-5) /lpf Urine Bacteria (Auto) 4+ H (Negative) Urine Yeast Not Reportable Topiramate Levetiracetam Enterobacterales (PCR) (NotDetected) E. coli (PCR) (NotDetected) Klebsiella oxytoca PCR (NotDetected) SARS-CoV-2, RNA, NAAT NEGATIVE (NEGATIVE) mcr-1 Colistin Res Gene PCR (NotDetected) blaIMP Car res Gene PCR (NotDetected) KPC-Carbap Res Gene PCR (NotDetected) blaNDM Car Res Gene PCR (NotDetected) OXA-48 Carbapenem Resis Gene (PCR) (NotDetected) blaVIM Car Res Gene PCR (NotDetected) CTX-M Gene Resistance (PCR) (NotDetected) Bld Cult ID Panel PCR (NotDetected) 05/24/22 05/24/22 Range/Units 16:16 16:16 WBC 9.22 (4.8-10.8) K/ul RBC 3.81 L (3.93-5.22) M/uL Hgb 9.9 L (12.0-16.0) g/dl Hct 32.2 L (34.1-44.9) % MCV 84.5 (80.0-100.0) fL MCH 26.0 (25.0-34.0) pg MCHC 30.7 L (32.0-36.0) g/dL RDW Std Deviation 43.9 (36.4-46.3) fL RDW Coeff of Ewa 14.3 (11.5-14.5) % Plt Count 199 (130-400) K/uL MPV 10.8 (9.4-12.3) fL Immature Gran % (Auto) 0.4 % Neut % (Auto) 87.3 % Lymph % (Auto) 5.0 % Wake % (Auto) 6.6 % Eos % (Auto) 0.4 % Baso % (Auto) 0.3 % Neut # (Auto) 8.04 H (1.4-6.5) K/uL Lymph # (Auto) 0.46 L (1.2-3.4) K/uL Wake # (Auto) 0.61 (0.24-0.82) K/uL Eos # (Auto) 0.04 (0-0.50) K/uL Baso # (Auto) 0.03 (0-0.2) K/uL Immature Gran # (Auto) 0.04 H (0.00-0.02) K/uL ABG pH (7.35-7.45) ABG pCO2 (35-46) mmHg ABG pO2 (80-95) mmHg ABG HCO3 (19-24) mmol/L ABG O2 Saturation (90-95) % ABG Base Excess (-9-1.8) mEq/L [place] Test (Pos) Oxygen Given Sodium 136 (136-145) mmol/L Potassium 3.7 (3.5-5.1) mmol/L Chloride 95 L (98-107) mmol/L Carbon Dioxide 35 H (21-32) mmol/L Anion Gap 6 (3-11) BUN 24 H (6-23) mg/dl Creatinine 1.10 (0.6-1.2) mg/dl Est Cr Clr Drug Dosing 56.2 ml/min Est GFR ( Amer) 61.4 ml/min Est GFR (Non-Af Amer) 53.0 ml/min BUN/Creatinine Ratio 21.8 H (10-20) Glucose 191 H (70-99(Fasting)) mg/dl POC Glucose (70-99) mg/dl Estimat Average Glucose Hemoglobin A1c Lactate (0.4-2.0) mmol/L Calcium 9.0 (8.5-10.1) mg/dl Phosphorus 3.1 (2.5-4.9) mg/dl Magnesium 1.9 (1.7-2.4) mg/dl Iron (35-150) mcg/dl TIBC (250-450) mcg/dl Unsaturated IBC (155-355) mcg/dl Transferrin % Sat (15-50) % Ferritin (8-388) ng/ml Total Bilirubin 1.0 (0.2-1.0) mg/dl Direct Bilirubin 0.2 (0-0.2) mg/dl AST 14 (13-39) U/L ALT 9 (7-52) U/L Alkaline Phosphatase 96 (34-104) U/L Ammonia (18-72) umol/L Troponin I High Sens 14.1 H D (0-14) pg/ml Total Protein 7.3 (6.0-8.3) gm/dl Albumin 3.4 (3.4-5.0) gm/dl Globulin 3.9 (2.5-4.0) gm/dl Albumin/Globulin Ratio 0.9 (0.9-2) Lipase 38 (11-82) U/L Procalcitonin (0-0.5) ng/ml Urine Color Urine Appearance (Clear) Urine pH (4.5-7.5) Ur Specific [place] (1.000-1.030) Urine Protein (Negative) Urine Glucose (UA) (Negative) Urine Ketones (Negative) Urine Blood (Negative) Urine Nitrite (Negative) Urine Bilirubin (Negative) Urine Urobilinogen (Negative) Ur Leukocyte Esterase (Negative) Urine WBC (Auto) (0-5) /hpf Urine RBC (Auto) (0-4) /hpf U Hyaline Cast (Auto) (0-5) /lpf U Epithel Cells (Auto) (0-5) /lpf Urine Bacteria (Auto) (Negative) Urine Yeast Topiramate Levetiracetam Enterobacterales (PCR) (NotDetected) E. coli (PCR) (NotDetected) Klebsiella oxytoca PCR (NotDetected) SARS-CoV-2, RNA, NAAT (NEGATIVE) mcr-1 Colistin Res Gene PCR (NotDetected) blaIMP Car res Gene PCR (NotDetected) KPC-Carbap Res Gene PCR (NotDetected) blaNDM Car Res Gene PCR (NotDetected) OXA-48 Carbapenem Resis Gene (PCR) (NotDetected) blaVIM Car Res Gene PCR (NotDetected) CTX-M Gene Resistance (PCR) (NotDetected) Bld Cult ID Panel PCR (NotDetected) Diagnostic Findings Chest X-Ray 05/24/22 15:49 XR chest 1V portable HISTORY: Atypical Chest Pain COMPARISON: Chest 04/02/2022. FINDINGS: Slightly rotated study. No pneumothorax. No pleural effusions. The heart is mildly enlarged. This remains unchanged. There is mild central pulmonary vascular congestion without overt edema. No new focal lung consolidations to suggest pneumonia. IMPRESSION: Cardiomegaly with mild congestive change. This is similar to the prior study. ACT 112: Negative or not required by law. Electronically signed by: Laurent Caballero M.D. 05/24/2022 4:10 PM Abdomen/Pelvis CT 05/24/22 17:55 CT OF THE ABDOMEN AND PELVIS WITHOUT CONTRAST CLINICAL HISTORY: weakness, nausea, uti COMPARISON STUDY: CT of the abdomen and pelvis September 12, 2020. TECHNIQUE: Axial images of the abdomen and pelvis were obtained without IV contrast. Images were reviewed in the axial, sagittal, and coronal planes. Automated exposure control was utilized for the study. A dose lowering technique was utilized adhering to the principles of ALARA. FINDINGS: Lung bases are unremarkable. Small pericardial effusion has decreased in size since prior exam. There is cardiomegaly. No pneumatosis, free air or portal venous gas is present. No renal, ureteral or bladder calculi are present. Mild bladder wall thickening with mild adjacent infiltration is noted. There is also mild stranding adjacent to the ureters and kidneys. Evaluation of the remainder of the abdomen and pelvis is suboptimal on this unenhanced examination. Liver, spleen, adrenal glands and pancreas are unremarkable. There is no biliary or pancreatic ductal dilatation. Calcified gallstone within the gallbladder is noted. No evidence for acute cholecystitis. Mildly enlarged bilateral iliac chain lymph nodes remain unchanged. Moderate amount stool within the rectum is noted. There is colonic diverticulosis without evidence for acute diverticulitis. No evidence for a bowel obstruction. Fat-containing umbilical and left lower quadrant ventral hernias are present. There is skin thickening and subcutaneous stranding of the lower anterior abdominal wall. No fluid collection is present. There is no soft tissue gas. No acute fracture or suspicious lesion is identified within the visualized skeletal structures. IMPRESSION: 1. No urinary calculi or hydronephrosis. Stranding adjacent to the bladder, ureters and kidneys, as described above. This could be correlated with urin alysis to exclude an infectious process. 2. No bowel obstruction. Colonic diverticulosis without evidence for acute diverticulitis. Moderate amount of stool within the rectum. 3. Skin thickening and nonspecific subcutaneous stranding of the lower anterior abdominal wall. Eventration of the anterior abdominal wall with several fat- containing hernias, as described above. 4. No change in mildly enlarged bilateral iliac chain lymph nodes since prior CT. ACT 112: Negative or not required by law. Electronically signed by: Goyo Castillo M.D. 05/24/2022 7:[address] 05/24/22 18:18 CT OF THE HEAD WITHOUT CONTRAST CLINICAL HISTORY: Altered mental status. COMPARISON STUDY: MRI of the brain May 07, 2016. Head CT April 02, 2022. CT DOSE: 884.08 mGy.cm TECHNIQUE: Helical axial images of the head were obtained without IV contrast. Automated exposure control was utilized for the study. A dose lowering technique was utilized adhering to the principles of ALARA. FINDINGS: No acute intracranial hemorrhage, midline shift or mass effect is present. The ventricular system is unremarkable. The basal cisterns are patent. No extra-axial collections are present. There are no findings to suggest acute dural sinus thrombosis or acute territorial infarct. No significant calvarial abnormalities are present. Ossification along the falx is incidentally noted Postoperative findings within the sinuses are noted. There is no evidence for sinusitis. Left mastoid air cells are nearly entirely opacified. This is slightly increased since CT of April 02, 2022. There is also fluid within the left middle ear. Small amount of fluid within the right mastoid air cells is unchanged. IMPRESSION: 1. No acute intracranial findings. No change in appearance of the brain. 2. Increase in a left mastoid effusion. Fluid within the left middle ear. Small amount of fluid within the right mastoid air cells. ACT 112: Negative or not required by law. Electronically signed by: Goyo Castillo M.D. 05/24/2022 7:00 PM PG Care Time/CCT Total # of Minutes Spent Total Time Spent with Patient: Total time spent is greater than 50% in coordination of care (as documented) at patient's floor/unit and/or counseling patient: Coding Level of Care Code 91442 Subseq Hosp Care Lvl 3 Diagnoses Pyelonephritis N12 Elevated troponin R77.8 Chronic respiratory failure with hypoxia and hypercapnia J96.11; J96.12 Venous stasis ulcers of both lower extremities I83.019; I83.029; L97.919; L97.929 Seizure disorder G40.909 Diabetes mellitus, type II E11.9 Diabetes mellitus complication status: without complication Diabetes mellitus biztalk developer insulin use: without biztalk developer use Hypertension I10 Hypertension type: essential hypertension NICM (nonischemic cardiomyopathy) I42.8 Asthma J45.909 Asthma complication type: uncomplicated Asthma persistence: unspecified Asthma severity: unspecified severity Anemia D64.9 (1) Diabetes mellitus, type II Diabetes mellitus complication status: without complication Diabetes mellitus biztalk developer insulin use: without biztalk developer use Qualified Code(s): E11.9 - Type 2 diabetes mellitus without complications (2) Hypertension Hypertension type: essential hypertension Qualified Code(s): I10 - Essential (primary) hypertension (3) Asthma Asthma complication type: uncomplicated Asthma persistence: unspecified Asthma severity: unspecified severity Qualified Code(s): J45.909 - Unspecified asthma, uncomplicated
[2022-05-25] MEDS ORDERED: CEFEPIME 2,000 MG in SYRINGE 0 ML IV SCH (08:00)
[2022-05-25] MEDS: ASPIRIN 81 MG ECTAB PO SCH (08:34)
[2022-05-25] MEDS: FUROSEMIDE 40 MG TAB PO SCH (08:36)
[2022-05-25] MEDS: SPIRONOLACTONE 12.5 MG TAB PO SCH (08:37)
[2022-05-25] MEDS: TOPIRAMATE 100 MG TAB PO SCH ×2 (08:37→21:50)
[2022-05-25] MEDS: METOPROLOL SUCC 50MG EXT REL TAB PO SCH (08:39)
[2022-05-25 08:58] LABS: A calco-baum cmplx NotReported Not Detected (NotDetected); Bact fragilis Not Reported Not Detected (NotDetected); C auris Not Reported Not Detected (NotDetected); CTX-M Resistant Gene Not Detected (NotDetected); Calbicans Not Reported Not Detected (NotDetected); Candida glabrata Not Reported Not Detected (NotDetected); Candida krusei Not Reported Not Detected (NotDetected); Cneoformans/gatti Not Reported Not Detected (NotDetected); Cparapsilosis Not Reported Not Detected (NotDetected); Ctropicalis Not Reported Not Detected (NotDetected); E cloacae compx Not Reported Not Detected (NotDetected); Efaecalis Not Reported Not Detected (NotDetected); Efaecium Not Reported Not Detected (NotDetected); Enterobacterales DETECTED (NotDetected); Enterobacterales Not Reported DETECTED (NotDetected); Escherichia coli Not Reported DETECTED (NotDetected); H influenzae Not Reported Not Detected (NotDetected); IMP Resistant Gene Not Detected (NotDetected); K aerogenes Not Reported Not Detected (NotDetected); KPC Resistant Gene Not Detected (NotDetected); Koxytoca Not Reported Not Detected (NotDetected); Kpneumoniae grp Not Reported Not Detected (NotDetected); Lmonocyt Not Reported Not Detected (NotDetected); N meningitidis Not Reported Not Detected (NotDetected); NDM Resistant Gene Not Detected (NotDetected); OXA 48 Like Resistant Gene Not Detected (NotDetected); P aeruginosa Not Reported Not Detected (NotDetected); Proteus spp Not Reported Not Detected (NotDetected); Salmonella spp Not Reported Not Detected (NotDetected); Smarcescens Not Reported Not Detected (NotDetected); Staph lugdunensis Not Reported Not Detected (NotDetected); Staph spp. Not Reported Not Detected (NotDetected); Staphaureus Not Reported Not Detected (NotDetected); Staphepi Not Reported Not Detected (NotDetected); Stenmaltophilia Not Reported Not Detected (NotDetected); Strep agal(GrpB) Not Reported Not Detected (NotDetected); Strep pneum Not Reported Not Detected (NotDetected); Strep pyog (GrpA) Not Reported Not Detected (NotDetected); Strep spp Not Reported Not Detected (NotDetected); VIM Resistant Gene Not Detected (NotDetected); mcr-1 Colistin Resistant Gene Not Detected (NotDetected)
[2022-05-25 09:12] LABS: Basophils # (auto) 0.05 K/uL (0-0.2); Basophils % (auto) 0.7 %; Eosinophils # (auto) 0.07 K/uL (0-0.50); Eosinophils % (auto) 0.9 %; Hematocrit (blood only) 29.2 % (34.1-44.9); Hemoglobin 8.7 g/dl (12.0-16.0); Immature Granulocytes # (auto) 0.03 K/uL (0.00-0.02); Immature Granulocytes % (auto) 0.4 %; Lymphocytes # (auto) 0.81 K/uL (1.2-3.4); Mean Corpuscular Hemoglobin 25.6 pg (25.0-34.0); Mean Corpuscular Hgb Conc 29.8 g/dL (32.0-36.0); Mean Corpuscular Volume 85.9 fL (80.0-100.0); Mean Platelet Volume 10.8 fL (9.4-12.3); Monocytes # (auto) 0.69 K/uL (0.24-0.82); Monocytes % (auto) 9.3 %; Neutrophils # (auto) 5.74 K/uL (1.4-6.5); Neutrophils % (auto) 77.7 %; Platelet Count 167 K/uL (130-400); RDW Coefficient of Variation 14.2 % (11.5-14.5); RDW Standard Deviation 44.2 fL (36.4-46.3); White Blood Count 7.39 K/ul (4.8-10.8)
[2022-05-25 09:37] LABS: Troponin I High Sensitivity 20.7 pg/ml (0-14)
[2022-05-25 09:39] LABS: BUN Creatinine Ratio 22.1 (10-20); Calcium 8.6 mg/dl (8.5-10.1); Creatinine Clr Calc Pharmacy 57.2 ml/min; Est GFR (African American) 65.8 ml/min; Est GFR (Non-African American) 56.7 ml/min; Potassium 3.6 mmol/L (3.5-5.1)
[2022-05-25 09:50] LABS: Ferritin 85.2 ng/ml (8-388)
[2022-05-25] MEDS ORDERED: IRON SUCROSE 200 MG in 0.9 % SODIUM CHLORIDE 100 ML IV ONE (10:15)
[2022-05-25 10:22] LABS: Estimated Average Glucose 143 mg/dl; Hemoglobin A1C 6.6 % (4.5-5.6)
--- NOTE | 2022-05-25 14:35 | Electrocardiogram Report ---
Test Reason : Blood Pressure : / mmHG Vent. Rate : 110 BPM Atrial Rate : 110 BPM P-R Int : 152 ms QRS Dur : 170 ms QT Int : 400 ms P-R-T Axes : 042 -32 122 degrees QTc Int : 541 ms Poor data quality, interpretation may be adversely affected Sinus tachycardia Left axis deviation Left bundle branch block Abnormal ECG When compared with ECG of 02-APR-2022 12:18, No significant change was found Confirmed by Bernard Reyez ([id number]) on 05/25/2022 2:35:08 PM Referred By: REFERRED SELF Confirmed By:Bernard Reyez
--- NOTE | 2022-05-25 14:37 | Electrocardiogram Report ---
Test Reason : Blood Pressure : / mmHG Vent. Rate : 116 BPM Atrial Rate : 116 BPM P-R Int : 132 ms QRS Dur : 170 ms QT Int : 390 ms P-R-T Axes : 028 -47 112 degrees QTc Int : 542 ms Sinus tachycardia Left axis deviation Left bundle branch block Abnormal ECG When compared with ECG of 24-MAY-2022 15:16, No significant change was found Confirmed by Bernard Reyez ([id number]) on 05/25/2022 2:36:52 PM Referred By: REFERRED SELF Confirmed By:Bernard Reyez
[2022-05-25] MEDS: cefTRIAXone SODIUM 2,000 MG in DEXTROSE 5% 50 ML IV SCH (18:10)
--- NOTE | 2022-05-26 07:59 | Hospitalist Progress Note ---
Date of Service May 26, 2022 Assessment & Plan (1) Pyelonephritis: Plan: 62yo female presenting with several days of increased lethargy, confusion. Prior COVID-19 infection end of February into March, no treatment required and d/c from ER UA w/ evidence for infection CTAP w/ ascending urinary infection, no stones Blood and urine cultures consistent with Ecoli Switched from Cefepime (given hx pseudomonas) to ceftriaxone (day 3 of therapy) -- consider completing course /switch to PO tomorrow after 48hr IV WBC wnl, low grade temp with venofer 05/25 but otherwise afebrile PT/OT consulted * Of note, patient admit 2019 and at that time was determined patient did not lack understanding to make decisions for herself. Family working on getting POA but needing patient to sign/with witness outpatient and currently with infection not posssible but daughter who is caregiver would consider rehab if needed (patient has [facility] in the past) but primary goal to get patient to be able to pivot safely as she reports Gilma almost fell [employer] and she was caught by her daughter but fears for falls at home if mobility not at least slightly improved CM to follow Continued inpatient stay (2) Bacteremia: Plan: 2nd to urinary source. of note, daughter who is caregiver states patient in power chair and does sit for extended periods of time in wet briefs despite being told about possibly getting UTI (3) Acute metabolic encephalopathy: Plan: improving, appears somewhat to baseline based on prior evals but still with significant weakness/fatigue. PT/OT consults pending (4) Elevated troponin: Plan: Patient with mildly elevated HS-troponin of 14.1. She denies chest pain, SOB (above baseline) or palpitations. No acute ischemic findings on EKG. Trop 14.1--> 20.7, suspect demand from infection, but also noted patient does have history of iron deficiency anemia as well per daughter -- iron studies added to am blood iron 13, trans % sat low at 5 Venofer 200mg IV on 05/25, additional 200mg for 05/26 and will plan additional dose for tomorrow Continue ASA 81mg po daily Continue Atorvastatin 40mg po daily Continue Metoprolol 50mg po daily EKG w/ CP (5) Chronic respiratory failure with hypoxia and hypercapnia: Plan: Presently with no SOB. Adequate oxygenation on usual 2L Incentive spirometer added and encouraged but hasn't been using much CXR w/ some congestion, however would hold off on lasix for now as not increased work of breathing but will order additional dose PO lasix this evening given venofer along with PO Kcl Venofer IV for above, continue AHA diet Albuterol HFA available prn Added incentive spirometer Continue to monitor (6) Venous stasis ulcers of both lower extremities: Plan: Improving. Dressings in place Continue wound care daily and as needed Wound RN consulted (of note, prior wound cx jul 2021 w/ the pseudomonas, sept w/ MRSA and has been following locally w/ wound center) (7) Seizure disorder: Plan: Chronic. Stable Continue keppra, topamax hx noncompliance but stated has been getting these at home Levels pending for both (8) Diabetes mellitus, type II: Plan: Chronic, A1c w/ AM labs -- 6.6 but given anemia unreliable Hold home injectable Continue lantus 8u BID, ISS while inpatient BSGs acceptable and will monitor (9) Hypertension: Plan: Blood pressure stable but borderline low 112/69 this morning asymptomatic but fatigued -- getting IV venofer as outlined for iron deficiency anemia Continuing metoprolol, spironolactone and lasix in light of congestive changes on CXR. Consider additional dose lasix as needed and planning for extra dose PO this evening COntinue AHA diet (10) NICM (nonischemic cardiomyopathy): Plan: Compensated -Continue Metoprolol 50mg, Spironolactone 12.5mg, ASA 81mg daily No CP reported (11) Asthma: Plan: Chronic. Stable -Albuterol PRN -Continue home O2 (12) Anemia: Plan: chronic, had been on PO iron in past, talks about IV in outpatient notes checked Iron panel as above given hgb in 8s, no active signs of bleeding Venofer IV 2nd dose today B12 without deficiency hgb 8.7--> 8.8 and remains stable. suspect some dilutional from slight volume overload and considering additional dose of lasix 40mg PO x 1 this afternoon Plan continued inpatient stay PT/OT consulted, possible need for rehab vs home Admission and Anticipated Discharge Date Admission Date: May 24, 2022 Supervising Physician Co-Signing Physician Notes PA Supervision Note: I did not personally see or examine the patient today, but I verified all macias points of ZULEMA Michaud's assessment and plan with the following exceptions/additions: None Subjective Patient evaluated this morning. Resting comfortably in bed, easily awoken to name. Her main concern is wanting to go home and that she misses her house. Discussed needing to adequately treat infection and work with therapy to get her to a place that that would be feasible over rehab. She does not want to go anywhere but home. Discussed will have to see how she progresses but will attempt to get home with home health if that is feasible, as soon as possible, but that she will need at least another day or two inpatient. She denies any lightheadedness, chest pain, increased shortness of breath. Improved appetite and ate half her scrabbled eggs and toast. Per daughter, her needs to get patient to answer couple more questions to complete the rest of the power of patent attorney paper and have two other people sign it. Review of Systems Review of Systems: All systems reviewed & are unremarkable except as noted in HPI & below Physical Exam Physical Exam: General: WD/WN female resting in bed, no acute distress HEENT: head normocephalic, atraumatic, mmm, trachea midline without deviation, thick neck, pupils equal, anicteric, ears nontender, hearing slightly diminished Resp: not tachypneic, no cough, lung sounds diminished in the bases, poor inspiratory effort, diminished in the bases, on 2L NC (chronic 2L at baseline) CV: regular rhythm, rate, no m/r/g, trace pedal edema with chronic venous stasis changes and wraps to b/l LE, pulses palpable GI: +BS, soft, nontender MSK/Neuro; moves all extremities, no focal deficits Skin: gluteal breakdown, covered, skin blanchable, no purulent drainage, b/l LE in wraps -- closed healing areas to lateral aspects bilaterally without erythema/pain Psych: alert to person/place, intellectual disability and continuously stating she wants to know when she can go home Results & Data Results & Data ([facility]) Vital Signs (Past 12 Hours) Vital Signs Temp Pulse Resp BP BP Pulse Ox O2 Del Method 05/26/22 07:35 37.2 C 105 H 16 107/70 93 05/25/22 22:11 37.0 C 86 19 104/61 98 Nasal Cannula O2 Flow Rate 05/26/22 07:35 2 07/26/22 22:11 2 Laboratory Results 05/26/22 05/26/22 05/26/22 Range/Units 08:09 07:39 07:39 WBC 7.04 (4.8-10.8) K/ul RBC 3.48 L (3.93-5.22) M/uL Hgb 8.8 L (12.0-16.0) g/dl Hct 29.0 L (34.1-44.9) % MCV 83.3 (80.0-100.0) fL MCH 25.3 (25.0-34.0) pg MCHC 30.3 L (32.0-36.0) g/dL RDW Std Deviation 43.5 (36.4-46.3) fL RDW Coeff of Ewa 14.4 (11.5-14.5) % Plt Count 183 (130-400) K/uL MPV 10.7 (9.4-12.3) fL Sodium 137 (136-145) mmol/L Potassium 3.5 (3.5-5.1) mmol/L Chloride 97 L (98-107) mmol/L Carbon Dioxide 33 H (21-32) mmol/L Anion Gap 7 (3-11) BUN 19 (6-23) mg/dl Creatinine 1.03 (0.6-1.2) mg/dl Est Cr Clr Drug Dosing 57.8 ml/min Est GFR ( Amer) 66.5 ml/min Est GFR (Non-Af Amer) 57.4 ml/min BUN/Creatinine Ratio 18.4 (10-20) Glucose 98 (70-99(Fasting)) mg/dl POC Glucose 105 H (70-99) mg/dl Calcium 8.3 L (8.5-10.1) mg/dl Magnesium 1.9 (1.7-2.4) mg/dl Total Bilirubin 0.5 D (0.2-1.0) mg/dl AST 15 (13-39) U/L ALT 8 (7-52) U/L Alkaline Phosphatase 75 (34-104) U/L Total Protein 6.4 (6.0-8.3) gm/dl Albumin 2.9 L (3.4-5.0) gm/dl Globulin 3.5 (2.5-4.0) gm/dl Albumin/Globulin Ratio 0.8 L (0.9-2) Vitamin B12 (180-914) pg/ml 05/26/22 05/25/22 05/25/22 Range/Units 07:39 20:59 16:59 WBC (4.8-10.8) K/ul RBC (3.93-5.22) M/uL Hgb (12.0-16.0) g/dl Hct (34.1-44.9) % MCV (80.0-100.0) fL MCH (25.0-34.0) pg MCHC (32.0-36.0) g/dL RDW Std Deviation (36.4-46.3) fL RDW Coeff of Ewa (11.5-14.5) % Plt Count (130-400) K/uL MPV (9.4-12.3) fL Sodium (136-145) mmol/L Potassium (3.5-5.1) mmol/L Chloride (98-107) mmol/L Carbon Dioxide (21-32) mmol/L Anion Gap (3-11) BUN (6-23) mg/dl Creatinine (0.6-1.2) mg/dl Est Cr Clr Drug Dosing ml/min Est GFR ( Amer) ml/min Est GFR (Non-Af Amer) ml/min BUN/Creatinine Ratio (10-20) Glucose (70-99(Fasting)) mg/dl POC Glucose 153 H 135 H (70-99) mg/dl Calcium (8.5-10.1) mg/dl Magnesium (1.7-2.4) mg/dl Total Bilirubin (0.2-1.0) mg/dl AST (13-39) U/L ALT (7-52) U/L Alkaline Phosphatase (34-104) U/L Total Protein (6.0-8.3) gm/dl Albumin (3.4-5.0) gm/dl Globulin (2.5-4.0) gm/dl Albumin/Globulin Ratio (0.9-2) Vitamin B12 995 H (180-914) pg/ml 05/25/22 Range/Units 12:08 WBC (4.8-10.8) K/ul RBC (3.93-5.22) M/uL Hgb (12.0-16.0) g/dl Hct (34.1-44.9) % MCV (80.0-100.0) fL MCH (25.0-34.0) pg MCHC (32.0-36.0) g/dL RDW Std Deviation (36.4-46.3) fL RDW Coeff of Ewa (11.5-14.5) % Plt Count (130-400) K/uL MPV (9.4-12.3) fL Sodium (136-145) mmol/L Potassium (3.5-5.1) mmol/L Chloride (98-107) mmol/L Carbon Dioxide (21-32) mmol/L Anion Gap (3-11) BUN (6-23) mg/dl Creatinine (0.6-1.2) mg/dl Est Cr Clr Drug Dosing ml/min Est GFR ( Amer) ml/min Est GFR (Non-Af Amer) ml/min BUN/Creatinine Ratio (10-20) Glucose (70-99(Fasting)) mg/dl POC Glucose 134 H (70-99) mg/dl Calcium (8.5-10.1) mg/dl Magnesium (1.7-2.4) mg/dl Total Bilirubin (0.2-1.0) mg/dl AST (13-39) U/L ALT (7-52) U/L Alkaline Phosphatase (34-104) U/L Total Protein (6.0-8.3) gm/dl Albumin (3.4-5.0) gm/dl Globulin (2.5-4.0) gm/dl Albumin/Globulin Ratio (0.9-2) Vitamin B12 (180-914) pg/ml PG Care Time/CCT Total # of Minutes Spent Total Time Spent with Patient: Total time spent is greater than 50% in coordination of care (as documented) at patient's floor/unit and/or counseling patient: Coding Level of Care Code 47995 Subseq Hosp Care Lvl 3 Diagnoses Pyelonephritis N12 Bacteremia R78.81 Acute metabolic encephalopathy G93.41 Elevated troponin R77.8 Chronic respiratory failure with hypoxia and hypercapnia J96.11; J96.12 Venous stasis ulcers of both lower extremities I83.019; I83.029; L97.919; L97.929 Seizure disorder G40.909 Diabetes mellitus, type II E11.9 Diabetes mellitus complication status: without complication Diabetes mellitus mcfp insulin use: without mcfp use Hypertension I10 Hypertension type: essential hypertension NICM (nonischemic cardiomyopathy) I42.8 Asthma J45.909 Asthma complication type: uncomplicated Asthma persistence: unspecified Asthma severity: unspecified severity Anemia D64.9 (1) Diabetes mellitus, type II Diabetes mellitus complication status: without complication Diabetes mellitus mcfp insulin use: without pharmacy director use Qualified Code(s): E11.9 - Type 2 diabetes mellitus without complications (2) Hypertension Hypertension type: essential hypertension Qualified Code(s): I10 - Essential (primary) hypertension (3) Asthma Asthma complication type: uncomplicated Asthma persistence: unspecified Asthma severity: unspecified severity Qualified Code(s): J45.909 - Unspecified asthma, uncomplicated
[2022-05-26 08:06] LABS: Hemoglobin 8.8 g/dl (12.0-16.0); Mean Corpuscular Hemoglobin 25.3 pg (25.0-34.0); Mean Corpuscular Hgb Conc 30.3 g/dL (32.0-36.0); Mean Corpuscular Volume 83.3 fL (80.0-100.0); Mean Platelet Volume 10.7 fL (9.4-12.3); Platelet Count 183 K/uL (130-400); RDW Coefficient of Variation 14.4 % (11.5-14.5); RDW Standard Deviation 43.5 fL (36.4-46.3); Red Blood Count 3.48 M/uL (3.93-5.22); White Blood Count 7.04 K/ul (4.8-10.8)
[2022-05-26 08:34] LABS: Albumin Globulin Ratio 0.8 (0.9-2); Albumin Level 2.9 gm/dl (3.4-5.0); BUN Creatinine Ratio 18.4 (10-20); Bilirubin,Total 0.5 mg/dl (0.2-1.0); Calcium 8.3 mg/dl (8.5-10.1); Creatinine Clr Calc Pharmacy 57.8 ml/min; Est GFR (African American) 66.5 ml/min; Est GFR (Non-African American) 57.4 ml/min; Globulin 3.5 gm/dl (2.5-4.0); Magnesium 1.9 mg/dl (1.7-2.4); Potassium 3.5 mmol/L (3.5-5.1); Total Protein 6.4 gm/dl (6.0-8.3)
[2022-05-26] MEDS: levETIRAcetam 500 MG TAB PO SCH ×2 (08:37→22:08)
[2022-05-26] MEDS: TOPIRAMATE 100 MG TAB PO SCH ×2 (08:37→22:07)
[2022-05-26] MEDS: ASPIRIN 81 MG ECTAB PO SCH (08:38)
[2022-05-26] MEDS: SPIRONOLACTONE 12.5 MG TAB PO SCH (08:38)
[2022-05-26] MEDS: FUROSEMIDE 40 MG TAB PO SCH (08:38)
[2022-05-26] MEDS: NYSTATIN POWDER 15GM BTL EXT SCH ×2 (08:38→22:08)
[2022-05-26] MEDS: METOPROLOL SUCC 50MG EXT REL TAB PO SCH (08:38)
[2022-05-26] MEDS: INSULIN ASPART PER UNIT SC SCH ×4 (08:39→22:03)
[2022-05-26] MEDS: ENOXAPARIN INJ 40 MG/0.4 ML SYR SQ SCH ×2 (08:39→22:08)
[2022-05-26] MEDS: LANTUS PER UNIT CHARGE SQ SCH ×2 (08:40→22:03)
[2022-05-26] MEDS ORDERED: IRON SUCROSE 200 MG in 0.9 % SODIUM CHLORIDE 100 ML IV ONE (09:00)
[2022-05-26] MEDS ORDERED: POTASSIUM CHLORIDE CRTAB 20 MEQ TABCR PO ONE (15:00)
[2022-05-26] MEDS ORDERED: FUROSEMIDE 40 MG TAB PO ONE (15:00)
[2022-05-26] MEDS: cefTRIAXone SODIUM 2,000 MG in DEXTROSE 5% 50 ML IV SCH (16:40)
[2022-05-26] MEDS: ATORVASTATIN 40 MG TAB PO SCH (22:08)
[2022-05-27 08:27] LABS: Hematocrit (blood only) 30.6 % (34.1-44.9); Hemoglobin 9.2 g/dl (12.0-16.0); Mean Corpuscular Hemoglobin 25.6 pg (25.0-34.0); Mean Corpuscular Hgb Conc 30.1 g/dL (32.0-36.0); Mean Platelet Volume 10.7 fL (9.4-12.3); Platelet Count 203 K/uL (130-400); RDW Coefficient of Variation 14.1 % (11.5-14.5); RDW Standard Deviation 43.6 fL (36.4-46.3); White Blood Count 7.18 K/ul (4.8-10.8)
--- NOTE | 2022-05-27 08:27 | Hospitalist Progress Note ---
Date of Service May 27, 2022 Assessment & Plan (1) Pyelonephritis: Plan: 62yo female presenting with several days of increased lethargy, confusion. Prior COVID-19 infection end of February into March, no treatment required and d/c from ER UA w/ evidence for infection CTAP w/ ascending urinary infection, no stones Blood and urine cultures consistent with Ecoli Switched from Cefepime (given hx pseudomonas) to ceftriaxone (day 4 of therapy) -- consider completing course /switch to PO tomorrow to quinolone but will check EKG given QTC 542 on admit Pansensitive except ampicillin/sulbactam and cefazolin WBC wnl, low grade temp with venofer 05/25 but otherwise afebrile PT/OT consulted * Of note, patient admit 2019 and at that time was determined patient did not lack understanding to make decisions for herself. 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 CM to follow Continued inpatient stay (2) Bacteremia: Plan: 2nd to urinary source. of note, daughter who is caregiver states patient in power chair and does sit for extended periods of time in wet briefs despite being told about possibly getting UTI (3) Acute metabolic encephalopathy: Plan: improving, appears somewhat to baseline based on prior evals but still with significant weakness/fatigue. abx for UTI/pyelo as above PT/OT consults pending -- encouraged participation (4) Elevated troponin: Plan: Patient with mildly elevated HS-troponin of 14.1. She denies chest pain, SOB (above baseline) or palpitations. No acute ischemic findings on EKG. Trop 14.1--> 20.7, suspect demand from infection, but also noted patient does have history of iron deficiency anemia as well per daughter-- iron studies added and iron 13, trans % sat low at 5 Venofer 200mg IV on 05/25, 05/26, 3rd dose 05/27 hgb stable and imporved to 9.2. also given extra dose lasix 05/26 Continue ASA 81mg po daily Continue Atorvastatin 40mg po daily Continue Metoprolol 50mg po daily EKG w/ CP (5) Chronic respiratory failure with hypoxia and hypercapnia: Plan: Presently with no SOB. Adequate oxygenation on usual 2L Incentive spirometer added and encouraged but hasn't been using much CXR w/ some congestion, provided additional dose lasix with IV venofer 05/26 Continue Venofer Supplemental O2 as needed, titrate to maintain sats Continue albuterol HFA prn Denies SOB on exam Added incentive spirometer and encouraged use but still in package in room Continue to monitor (6) Venous stasis ulcers of both lower extremities: Plan: Improving. Dressings in place Continue wound care daily and as needed Wound RN consulted (of note, prior wound cx jul 2021 w/ the pseudomonas, sept w/ MRSA and has been following locally w/ wound center) (7) Seizure disorder: Plan: Chronic. Stable Continue keppra, topamax hx noncompliance but stated has been getting these at home Levels pending for both (8) Diabetes mellitus, type II: Plan: Chronic, A1c w/ AM labs -- 6.6 but given anemia unreliable Hold home injectable Continue lantus 8u BID, ISS while inpatient BSGs acceptable and will monitor (9) Hypertension: Plan: Blood pressure borderline low 97/65 this morning (chronincally low) Asymptomatic except fatigue but reports improved from day prior Continue BB, spironolactone lasix for now given congestive changes on CXR on admit Continue AHA diet (10) NICM (nonischemic cardiomyopathy): Plan: Compensated Continue Metoprolol 50mg, Spironolactone 12.5mg, ASA 81mg daily No CP reported (11) Asthma: Plan: Chronic. Stable -Albuterol PRN -Continue home O2 (12) Anemia: Plan: chronic, had been on PO iron in past, talks about IV in outpatient notes checked Iron panel as above given hgb in 8s, no active signs of bleeding Venofer IV 2nd dose today B12 without deficiency hgb 8.7--> 8.8--> 9.2 and remains stable. suspect some dilutional from slight volume overload and considering additional dose of lasix 40mg PO x 1 afternoon 05/26 Plan continued inpatient stay PT/OT consulted, possible need for rehab vs home pending on patient willingness to participate/ability to pivot safely for home w/ HH Admission and Anticipated Discharge Date Admission Date: May 24, 2022 Supervising Physician Co-Signing Physician Notes PA Supervision Note: I did not personally see or examine the patient today, but I verified all macias points of ZULEMA Michaud's assessment and plan with the following exceptions/additions: None Subjective Patient evaluated this morning. Doing alright, eating/drinking without issue. However, RN reported patient not willing to work with therapy. Had discussion with Tiff regarding such and ability to go home. She continues to voice and become tearful stating she wants to go home. Discussed daughter worry about weakness/falling and having an injury and needing to work with therapy to ensure strength enough to be able to return home safely. She states she does not want rehab as "those places are a disaster" "they stink like crazy". Lengthy discussion and encouragement to work with therapy so we can avoid rehab and Tiff stated she would try to work with therapy today to meet those goals. No fever/chill, chest pain, shortness of breath, abdominal pain or nausea at this time. Review of Systems Review of Systems: All systems reviewed & are unremarkable except as noted in HPI & below Physical Exam Physical Exam: General: WD/WN female resting in bed, no acute distress HEENT: head normocephalic, atraumatic, mmm, trachea midline without deviation, thick neck, pupils equal, anicteric, ears nontender, hearing slightly diminished Resp: not tachypneic, no cough, lung sounds diminished in the bases, poor inspiratory effort but improved from days prior, on 1L NC CV: regular rhythm, rate, no m/r/g, trace pedal edema with chronic venous stasis changes and wraps to b/l LE, pulses palpable, wrinkling of skin, no open/draining wounds GI: +BS, soft, nontender MSK/Neuro; moves all extremities, no focal deficits, generalized weakness Skin: gluteal breakdown, covered, skin blanchable, no purulent drainage, b/l LE in wraps -- closed healing areas to lateral aspects bilaterally without erythema/pain Psych: alert to person/place, intellectual disability and continuously stating she wants to know when she can go home and tearful when talking about rehab Results & Data Results & Data ([facility]) Vital Signs (Past 12 Hours) Vital Signs Temp Pulse Resp BP Pulse Ox O2 Del Method O2 Flow Rate 05/27/22 07:55 36.6 C 82 16 97/65 L 94 Nasal Cannula 1 05/26/22 21:30 Nasal Cannula 2 05/26/22 21:47 36.9 C 83 18 102/64 98 Nasal Cannula 2 Laboratory Results 05/27/22 05/27/22 05/27/22 Range/Units 08:10 07:47 07:47 WBC 7.18 (4.8-10.8) K/ul RBC 3.60 L (3.93-5.22) M/uL Hgb 9.2 L (12.0-16.0) g/dl Hct 30.6 L (34.1-44.9) % MCV 85.0 (80.0-100.0) fL MCH 25.6 (25.0-34.0) pg MCHC 30.1 L (32.0-36.0) g/dL RDW Std Deviation 43.6 (36.4-46.3) fL RDW Coeff of Ewa 14.1 (11.5-14.5) % Plt Count 203 (130-400) K/uL MPV 10.7 (9.4-12.3) fL Sodium 137 (136-145) mmol/L Potassium 3.5 (3.5-5.1) mmol/L Chloride 96 L (98-107) mmol/L Carbon Dioxide 35 H (21-32) mmol/L Anion Gap 6 (3-11) BUN 17 (6-23) mg/dl Creatinine 0.91 (0.6-1.2) mg/dl Est Cr Clr Drug Dosing 65.4 ml/min Est GFR ( Amer) 77.3 ml/min Est GFR (Non-Af Amer) 66.7 ml/min BUN/Creatinine Ratio 18.7 (10-20) Glucose 123 H (70-99(Fasting)) mg/dl POC Glucose 124 H (70-99) mg/dl Calcium 8.4 L (8.5-10.1) mg/dl Magnesium 1.9 (1.7-2.4) mg/dl Total Bilirubin 0.4 (0.2-1.0) mg/dl AST 16 (13-39) U/L ALT 10 (7-52) U/L Alkaline Phosphatase 78 (34-104) U/L Total Protein 6.6 (6.0-8.3) gm/dl Albumin 2.8 L (3.4-5.0) gm/dl Globulin 3.8 (2.5-4.0) gm/dl Albumin/Globulin Ratio 0.7 L (0.9-2) 05/26/22 05/26/22 05/26/22 Range/Units 20:57 17:38 11:56 WBC (4.8-10.8) K/ul RBC (3.93-5.22) M/uL Hgb (12.0-16.0) g/dl Hct (34.1-44.9) % MCV (80.0-100.0) fL MCH (25.0-34.0) pg MCHC (32.0-36.0) g/dL RDW Std Deviation (36.4-46.3) fL RDW Coeff of Ewa (11.5-14.5) % Plt Count (130-400) K/uL MPV (9.4-12.3) fL Sodium (136-145) mmol/L Potassium (3.5-5.1) mmol/L Chloride (98-107) mmol/L Carbon Dioxide (21-32) mmol/L Anion Gap (3-11) BUN (6-23) mg/dl Creatinine (0.6-1.2) mg/dl Est Cr Clr Drug Dosing ml/min Est GFR ( Amer) ml/min Est GFR (Non-Af Amer) ml/min BUN/Creatinine Ratio (10-20) Glucose (70-99(Fasting)) mg/dl POC Glucose 118 H 118 H 87 (70-99) mg/dl Calcium (8.5-10.1) mg/dl Magnesium (1.7-2.4) mg/dl Total Bilirubin (0.2-1.0) mg/dl AST (13-39) U/L ALT (7-52) U/L Alkaline Phosphatase (34-104) U/L Total Protein (6.0-8.3) gm/dl Albumin (3.4-5.0) gm/dl Globulin (2.5-4.0) gm/dl Albumin/Globulin Ratio (0.9-2) PG Care Time/CCT Total # of Minutes Spent Total Time Spent with Patient: Total time spent is greater than 50% in coordination of care (as documented) at patient's floor/unit and/or counseling patient: Coding Level of Care Code 18645 Subseq Hosp Care Lvl 3 Diagnoses Pyelonephritis N12 Bacteremia R78.81 Acute metabolic encephalopathy G93.41 Elevated troponin R77.8 Chronic respiratory failure with hypoxia and hypercapnia J96.11; J96.12 Venous stasis ulcers of both lower extremities I83.019; I83.029; L97.919; L97.929 Seizure disorder G40.909 Diabetes mellitus, type II E11.9 Diabetes mellitus complication status: without complication Diabetes mellitus truck terminal manager insulin use: without truck terminal manager use Hypertension I10 Hypertension type: essential hypertension NICM (nonischemic cardiomyopathy) I42.8 Asthma J45.909 Asthma complication type: uncomplicated Asthma persistence: unspecified Asthma severity: unspecified severity Anemia D64.9 (1) Diabetes mellitus, type II Diabetes mellitus complication status: without complication Diabetes mellitus truck terminal manager insulin use: without residential use Qualified Code(s): E11.9 - Type 2 diabetes mellitus without complications (2) Hypertension Hypertension type: essential hypertension Qualified Code(s): I10 - Essential (primary) hypertension (3) Asthma Asthma complication type: uncomplicated Asthma persistence: unspecified Asthma severity: unspecified severity Qualified Code(s): J45.909 - Unspecified asthma, uncomplicated
[2022-05-27] MEDS: INSULIN ASPART PER UNIT SC SCH ×4 (08:34→21:57)
[2022-05-27] MEDS: LANTUS PER UNIT CHARGE SQ SCH ×2 (08:41→21:58)
[2022-05-27] MEDS: METOPROLOL SUCC 50MG EXT REL TAB PO SCH (08:41)
[2022-05-27] MEDS: SPIRONOLACTONE 12.5 MG TAB PO SCH (08:41)
[2022-05-27] MEDS: TOPIRAMATE 100 MG TAB PO SCH ×2 (08:41→21:52)
[2022-05-27] MEDS: ASPIRIN 81 MG ECTAB PO SCH (08:41)
[2022-05-27] MEDS: levETIRAcetam 500 MG TAB PO SCH ×2 (08:41→21:52)
[2022-05-27] MEDS: FUROSEMIDE 40 MG TAB PO SCH (08:41)
[2022-05-27] MEDS: ENOXAPARIN INJ 40 MG/0.4 ML SYR SQ SCH ×2 (08:41→21:51)
[2022-05-27] MEDS: NYSTATIN POWDER 15GM BTL EXT SCH ×2 (08:42→21:53)
[2022-05-27 08:57] LABS: Albumin Globulin Ratio 0.7 (0.9-2); Albumin Level 2.8 gm/dl (3.4-5.0); BUN Creatinine Ratio 18.7 (10-20); Bilirubin,Total 0.4 mg/dl (0.2-1.0); Calcium 8.4 mg/dl (8.5-10.1); Creatinine Clr Calc Pharmacy 65.4 ml/min; Est GFR (African American) 77.3 ml/min; Est GFR (Non-African American) 66.7 ml/min; Globulin 3.8 gm/dl (2.5-4.0); Magnesium 1.9 mg/dl (1.7-2.4); Potassium 3.5 mmol/L (3.5-5.1); Total Protein 6.6 gm/dl (6.0-8.3)
[2022-05-27] MEDS ORDERED: IRON SUCROSE 200 MG in 0.9 % SODIUM CHLORIDE 100 ML IV ONE (09:00)
[2022-05-27] MEDS: DOCUSATE SODIUM/SENNA 50/8.6MG TAB PO SCH (12:34)
--- NOTE | 2022-05-27 16:49 | Electrocardiogram Report ---
Test Reason : Blood Pressure : / mmHG Vent. Rate : 099 BPM Atrial Rate : 099 BPM P-R Int : 176 ms QRS Dur : 174 ms QT Int : 426 ms P-R-T Axes : 063 -38 128 degrees QTc Int : 546 ms Sinus rhythm with Premature atrial complexes Left axis deviation Left bundle branch block Abnormal ECG When compared with ECG of 24-MAY-2022 21:50, Premature atrial complexes are now Present Confirmed by Bernard Reyez [id number]) on 05/27/2022 4:49:44 PM Referred By: REFERRED SELF Confirmed By:Bernard Reyez
[2022-05-27] MEDS: cefTRIAXone SODIUM 2,000 MG in DEXTROSE 5% 50 ML IV SCH (17:12)
[2022-05-27] MEDS: ATORVASTATIN 40 MG TAB PO SCH (21:51)
--- NOTE | 2022-05-28 08:40 | Hospitalist Progress Note ---
Date of Service May 28, 2022 Assessment & Plan (1) Pyelonephritis: Plan: 62yo female presenting with several days of increased lethargy, confusion. Prior COVID-19 infection end of February into March, no treatment required and d/c from ER UA w/ evidence for infection CTAP w/ ascending urinary infection, no stones Blood and urine cultures consistent with Ecoli Switched from Cefepime (given hx pseudomonas) to ceftriaxone (day 5 of therapy) -- consider completing course /switch to PO tomorrow to quinolone but will check EKG given QTC 542 on admit, however repeat EKG remains with QTx 546 Pansensitive except ampicillin/sulbactam and cefazolin Will switch to Bactrim 05/28, to complete 14 days therapy WBC wnl, afebrile PT/OT consulted * Of note, patient admit 2019 and at that time was determined patient did not lack understanding to make decisions for herself. 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 of note, daughter who is caregiver states patient in power chair and does sit for extended periods of time in wet briefs despite being told about possibly getting UTI (3) Acute metabolic encephalopathy: Plan: improving, appears somewhat to baseline based on prior evals but still with significant weakness/fatigue. abx for UTI/pyelo as above PT/OT consults pending -- encouraged participation (4) Elevated troponin: Plan: Patient with mildly elevated HS-troponin of 14.1. She denies chest pain, SOB (above baseline) or palpitations. No acute ischemic findings on EKG. Trop 14.1--> 20.7, suspect demand from infection, but also noted patient does have history of iron deficiency anemia as well per daughter-- iron studies added and iron 13, trans % sat low at 5 Venofer 200mg IV on 05/25, 05/26, 05/27 and will order additional 2 doses to complete while inpatient Hgb stable and improved to 9.6 Continue ASA 81mg po daily Continue Atorvastatin 40mg po daily Continue Metoprolol 50mg po daily EKG w/ CP (5) Chronic respiratory failure with hypoxia and hypercapnia: Plan: Presently with no SOB. Adequate oxygenation on usual 2L Incentive spirometer added and encouraged but hasn't been using much CXR w/ some congestion, provided additional dose lasix with IV venofer 05/26, consider additional diuretic with venofer if needed Continue albuterol HFA prn Denies SOB on exam Added incentive spirometer and encouraged use Supplemental O2 as needed, titrate to maintain sats to prevent over correction given baseline hypercapnia Continue to monitor (6) Venous stasis ulcers of both lower extremities: Plan: Improving. Dressings in place Continue wound care daily and as needed Wound RN consulted (of note, prior wound cx jul 2021 w/ the pseudomonas, sept w/ MRSA and has been following locally w/ wound center) (7) Seizure disorder: Plan: Chronic. Stable Continue keppra, topamax hx noncompliance but stated has been getting these at home Levels pending for both (8) Diabetes mellitus, type II: Plan: Chronic, A1c w/ AM labs -- 6.6 but given anemia unreliable Hold home injectable Continue lantus 8u BID, ISS while inpatient BSGs acceptable and will monitor (9) Hypertension: Plan: Blood pressure borderline low at baseline, currently 125/78 though and improved Continue BB, spironolactone lasix for now given congestive changes on CXR on admit extra dose lasix on 05/26 x1 Continue AHA diet Monitor (10) NICM (nonischemic cardiomyopathy): Plan: Compensated Continue Metoprolol 50mg, Spironolactone 12.5mg, ASA 81mg daily No CP reported (11) Asthma: Plan: Chronic. Stable -Albuterol PRN -Continue home O2 (12) Anemia: Plan: chronic, had been on PO iron in past, talks about IV in outpatient notes checked Iron panel as above given hgb in 8s, no active signs of bleeding Venofer IV 2nd dose today B12 without deficiency hgb 8.7--> 9.6 after 3 doses Venofer so far, additional 2 doses provided (13) Hypokalemia: Plan: K 3.3 on Am labs, ordered 20meq Kcl as switching to Bactrim and will monitor BMP in AM Plan continued inpatient stay PT/OT consulted and either rehab if unable to meet goals or home w/ HH if able to progress while waiting bed Admission and Anticipated Discharge Date Admission Date: May 24, 2022 Supervising Physician Co-Signing Physician Notes PA Supervision Note: I did not personally see or examine the patient today, but I verified all macias points of ZULEMA Michaud's assessment and plan with the following exceptions/additions: None Subjective Evaluated specimen boss, reported to RN she had BM earlier but denied anything since. No abdominal pain. Continues to want to go home. Not comfortable in the bed at times reported. Will continue to see how she progresses with therapy while working on rehab placement and if able to meet goals prior to bed available can consider home. Will update family this afternoon. No fever/chills, chest pain, shortness of breath, abdominal pain, nausea at this time. Review of Systems Review of Systems: All systems reviewed & are unremarkable except as noted in HPI & below Physical Exam Physical Exam: General: WD/WN female resting in bed, no acute distress HEENT: head normocephalic, atraumatic, mmm, trachea midline without deviation, thick neck, pupils equal, anicteric, ears nontender, hearing slightly diminished Resp: not tachypneic, no cough, lung sounds diminished in the bases, poor inspiratory effort but improved from days prior, on 1L NC CV: regular rhythm, rate, no m/r/g, trace pedal edema with chronic venous stasis changes and wraps to b/l LE, pulses palpable, wrinkling of skin, no open/draining wounds GI: +BS, soft, nontender MSK/Neuro; moves all extremities, no focal deficits, generalized weakness Skin: gluteal breakdown, covered, skin blanchable, no purulent drainage, b/l LE in wraps -- closed healing areas to lateral aspects bilaterally without erythema/pain Psych: alert to person/place, intellectual disability and continuously stating she wants to know when she can go home and tearful when talking about rehab Results & Data Results & Data ([facility]) Vital Signs (Past 12 Hours) Vital Signs Temp Pulse Resp BP Pulse Ox O2 Del Method 05/27/22 23:52 36.6 C 87 18 110/74 96 Room Air Laboratory Results 05/28/22 05/28/22 05/28/22 Range/Units 12:26 09:57 09:57 WBC 7.82 (4.8-10.8) K/ul RBC 3.75 L (3.93-5.22) M/uL Hgb 9.6 L (12.0-16.0) g/dl Hct 31.7 L (34.1-44.9) % MCV 84.5 (80.0-100.0) fL MCH 25.6 (25.0-34.0) pg MCHC 30.3 L (32.0-36.0) g/dL RDW Std Deviation 43.8 (36.4-46.3) fL RDW Coeff of Ewa 14.1 (11.5-14.5) % Plt Count 252 (130-400) K/uL MPV 10.3 (9.4-12.3) fL Sodium 137 (136-145) mmol/L Potassium 3.3 L (3.5-5.1) mmol/L Chloride 97 L (98-107) mmol/L Carbon Dioxide 34 H (21-32) mmol/L Anion Gap 6 (3-11) BUN 17 (6-23) mg/dl Creatinine 0.89 (0.6-1.2) mg/dl Est Cr Clr Drug Dosing 66.8 ml/min Est GFR ( Amer) 79.4 ml/min Est GFR (Non-Af Amer) 68.5 ml/min BUN/Creatinine Ratio 19.1 (10-20) Glucose 195 H (70-99(Fasting)) mg/dl POC Glucose 147 H (70-99) mg/dl Calcium 8.9 (8.5-10.1) mg/dl 05/28/22 05/27/22 05/27/22 Range/Units 08:58 20:49 17:14 WBC (4.8-10.8) K/ul RBC (3.93-5.22) M/uL Hgb (12.0-16.0) g/dl Hct (34.1-44.9) % MCV (80.0-100.0) fL MCH (25.0-34.0) pg MCHC (32.0-36.0) g/dL RDW Std Deviation (36.4-46.3) fL RDW Coeff of Ewa (11.5-14.5) % Plt Count (130-400) K/uL MPV (9.4-12.3) fL Sodium (136-145) mmol/L Potassium (3.5-5.1) mmol/L Chloride (98-107) mmol/L Carbon Dioxide (21-32) mmol/L Anion Gap (3-11) BUN (6-23) mg/dl Creatinine (0.6-1.2) mg/dl Est Cr Clr Drug Dosing ml/min Est GFR ( Amer) ml/min Est GFR (Non-Af Amer) ml/min BUN/Creatinine Ratio (10-20) Glucose (70-99(Fasting)) mg/dl POC Glucose 143 H 203 H 141 H (70-99) mg/dl Calcium (8.5-10.1) mg/dl PG Care Time/CCT Total # of Minutes Spent Total Time Spent with Patient: Total time spent is greater than 50% in coordination of care (as documented) at patient's floor/unit and/or counseling patient: Coding Level of Care Code 68537 Subseq Hosp Care Lvl 3 Diagnoses Pyelonephritis N12 Bacteremia R78.81 Acute metabolic encephalopathy G93.41 Elevated troponin R77.8 Chronic respiratory failure with hypoxia and hypercapnia J96.11; J96.12 Venous stasis ulcers of both lower extremities I83.019; I83.029; L97.919; L97.929 Seizure disorder G40.909 Diabetes mellitus, type II E11.9 Diabetes mellitus complication status: without complication Diabetes mellitus long term care social worker insulin use: without fci use Hypertension I10 Hypertension type: essential hypertension NICM (nonischemic cardiomyopathy) I42.8 Asthma J45.909 Asthma complication type: uncomplicated Asthma persistence: unspecified Asthma severity: unspecified severity Anemia D64.9 Hypokalemia E87.6 (1) Diabetes mellitus, type II Diabetes mellitus complication status: without complication Diabetes mellitus fci insulin use: without fci use Qualified Code(s): E11.9 - Type 2 diabetes mellitus without complications (2) Hypertension Hypertension type: essential hypertension Qualified Code(s): I10 - Essential (primary) hypertension (3) Asthma Asthma complication type: uncomplicated Asthma persistence: unspecified Asthma severity: unspecified severity Qualified Code(s): J45.909 - Unspecified asthma, uncomplicated
[2022-05-28] MEDS: levETIRAcetam 500 MG TAB PO SCH ×2 (08:45→20:25)
[2022-05-28] MEDS: FUROSEMIDE 40 MG TAB PO SCH (08:49)
[2022-05-28] MEDS: TOPIRAMATE 100 MG TAB PO SCH ×2 (08:49→20:25)
[2022-05-28] MEDS: METOPROLOL SUCC 50MG EXT REL TAB PO SCH (08:49)
[2022-05-28] MEDS: ASPIRIN 81 MG ECTAB PO SCH (08:50)
[2022-05-28] MEDS: DOCUSATE SODIUM/SENNA 50/8.6MG TAB PO SCH (08:50)
[2022-05-28] MEDS: NYSTATIN POWDER 15GM BTL EXT SCH ×2 (08:50→20:24)
[2022-05-28] MEDS: SPIRONOLACTONE 12.5 MG TAB PO SCH (08:50)
[2022-05-28] MEDS: ENOXAPARIN INJ 40 MG/0.4 ML SYR SQ SCH ×2 (08:53→20:24)
[2022-05-28] MEDS: INSULIN ASPART PER UNIT SC SCH ×4 (09:20→21:34)
[2022-05-28] MEDS: LANTUS PER UNIT CHARGE SQ SCH ×2 (09:20→21:35)
[2022-05-28 10:07] LABS: Hematocrit (blood only) 31.7 % (34.1-44.9); Hemoglobin 9.6 g/dl (12.0-16.0); Mean Corpuscular Hemoglobin 25.6 pg (25.0-34.0); Mean Corpuscular Hgb Conc 30.3 g/dL (32.0-36.0); Mean Corpuscular Volume 84.5 fL (80.0-100.0); Mean Platelet Volume 10.3 fL (9.4-12.3); Platelet Count 252 K/uL (130-400); RDW Coefficient of Variation 14.1 % (11.5-14.5); RDW Standard Deviation 43.8 fL (36.4-46.3); Red Blood Count 3.75 M/uL (3.93-5.22); White Blood Count 7.82 K/ul (4.8-10.8)
[2022-05-28 10:39] LABS: BUN Creatinine Ratio 19.1 (10-20); Calcium 8.9 mg/dl (8.5-10.1); Creatinine Clr Calc Pharmacy 66.8 ml/min; Est GFR (African American) 79.4 ml/min; Est GFR (Non-African American) 68.5 ml/min; Potassium 3.3 mmol/L (3.5-5.1)
[2022-05-28] MEDS ORDERED: POTASSIUM CHLORIDE CRTAB 20 MEQ TABCR PO STA ×2 (13:20→13:48)
[2022-05-28 14:02] LABS: Levetiracetam Keppra 43.4 mcg/mL (6.0-46.0); Topiramate 14.8 mcg/mL (see note)
[2022-05-28] MEDS: IRON SUCROSE 200 MG in 0.9 % SODIUM CHLORIDE 100 ML IV SCH (14:07)
[2022-05-28] MEDS: LACTULOSE SYRUP 20 GM/30 ML UDC PO ONE ×2 (16:17→16:18)
[2022-05-28] MEDS: SULFAMETHOXAZOLE/TRIMETHOPRIM DS 800/160MG TAB PO SCH (20:24)
[2022-05-28] MEDS: ATORVASTATIN 40 MG TAB PO SCH (20:25)
[2022-05-29 07:47] LABS: BUN Creatinine Ratio 18.8 (10-20); Calcium 8.7 mg/dl (8.5-10.1); Est GFR (African American) 83.9 ml/min; Est GFR (Non-African American) 72.4 ml/min; Magnesium 1.9 mg/dl (1.7-2.4); Potassium 3.7 mmol/L (3.5-5.1)
--- NOTE | 2022-05-29 08:33 | Hospitalist Progress Note ---
Date of Service May 29, 2022 Assessment & Plan (1) Pyelonephritis: Plan: 62yo female presenting with several days of increased lethargy, confusion. Prior COVID-19 infection end of February into March, no treatment required and d/c from ER UA w/ evidence for infection CTAP w/ ascending urinary infection, no stones Blood and urine cultures consistent with Ecoli Switched from Cefepime (given hx pseudomonas) to ceftriaxone -- repeat ekg w/ continued borderlined QTC and decision not to use quinolone Pansensitive except ampicillin/sulbactam and cefazolin --> switched to Bactrim 05/28 to complete 14 day course, end date 06/07 WBC wnl, afebrile PT/OT consulted, rec rehab at this point, however patient adamant about wanting to go home. * Of note, patient admit 2019 and at that time was determined patient did not lack understanding to make decisions for herself. Family working on getting POA but needing patient to sign/with witness outpatient and currently with infection not possible but daughter who is caregiver would consider rehab if n eeded ([facility] has [facility] the past) but primary goal to get patient to be able to pivot safely as she reports Gilma almost fell BACK PADDER and she was caught by her daughter but fears for falls at home if mobility not at least slightly improved * Recommending rehab at present but consider home while waiting for bed if able to make improvements with therapy inpatient Updated daughter Yesenia 05/29 and if able to make improvements would consider home, possibly home health PT/OT pending course throughout weekend. Continued encouragement for patient provided and she is agreeable to continue to work with therapy Continued PT/OT, CM following (2) Bacteremia: Plan: 2nd to urinary source. of note, daughter who is caregiver states patient in power chair and does sit for extended periods of time in wet briefs despite being told about possibly getting UTI (3) Acute metabolic encephalopathy: Plan: improved, at baseline cognition abx for UTI/pyelo as above (4) Elevated troponin: Plan: Patient with mildly elevated HS-troponin of 14.1. She denies chest pain, SOB (above baseline) or palpitations. No acute ischemic findings on EKG. Trop 14.1--> 20.7, suspect demand from infection, but also noted patient does have history of iron deficiency anemia as well per daughter-- iron studies added and iron 13, trans % sat low at 5 Venofer 200mg IV on 05/25, 05/26, 05/27 and will complete 5 total 200mg while inpatient Hgb improved to 9.6 on repeat and no need for further repeat at this time Continue ASA 81mg po daily Continue Atorvastatin 40mg po daily Continue Metoprolol 50mg po daily EKG w/ CP (5) Chronic respiratory failure with hypoxia and hypercapnia: Plan: Presently with no SOB. Adequate oxygenation on usual 2L Incentive spirometer added and encouraged but hasn't been using much CXR w/ some congestion, provided additional dose lasix with IV venofer 05/26, consider additional diuretic with venofer if needed but stable on 1L at rest and typically on 2L Continue albuterol HFA prn Denies SOB on exam Added incentive spirometer and encouraged use Supplemental O2 as needed, titrate to maintain sats to prevent over correction given baseline hypercapnia Continue to monitor (6) Venous stasis ulcers of both lower extremities: Plan: Improving. Dressings in place Continue wound care daily and as needed Wound RN consulted (of note, prior wound cx jul 2021 w/ the pseudomonas, sept w/ MRSA and has been following locally w/ wound center) (7) Seizure disorder: Plan: Chronic. Stable Continue keppra, topamax hx noncompliance but stated has been getting these at home Levels for both in normal range, no evidence for seizure activity (8) Diabetes mellitus, type II: Plan: Chronic, A1c w/ AM labs -- 6.6 but given anemia unreliable Hold home injectable Continue lantus 8u BID, ISS while inpatient BSGs acceptable and will monitor (9) Hypertension: Plan: Blood pressure borderline low at baseline, currently 125/78 though and improved Continue BB, spironolactone lasix for now given congestive changes on CXR on admit extra dose lasix on 05/26 x1 Continue AHA diet Monitor (10) NICM (nonischemic cardiomyopathy): Plan: Compensated Continue Metoprolol 50mg, Spironolactone 12.5mg, ASA 81mg daily No CP reported (11) Asthma: Plan: Chronic. Stable -Albuterol PRN -Continue home O2 (12) Anemia: Plan: chronic, had been on PO iron in past, talks about IV in outpatient notes checked Iron panel as above given hgb in 8s, no active signs of bleeding Venofer IV 2nd dose today B12 without deficiency hgb 8.7--> 9.6 after 3 doses Venofer and complete 5 doses 200mg IV (13) Hypokalemia: Plan: K 3.3 on Am labs, ordered 20meq Kcl as switching to Bactrim Repeat wnl Plan continued inpatient stay PT/OT consulted and either rehab if unable to meet goals or home w/ HH if able to progress while waiting bed Admission and Anticipated Discharge Date Admission Date: May 24, 2022 Supervising Physician Co-Signing Physician Notes PA Supervision Note: I did not personally see or examine the patient today, but I verified all macias points of ZULEMA Michaud's assessment and plan with the following exceptions/additions: None Subjective Evaluated this morning. States she is doing well. Tired of being in the hospital and wanting to go home. Eating/drinking without issue. Stressed importance of therapy to get her stronger but if able to meet goals will consider. Will update daughter day as discussed with patient, she states "don't let Day bullshit you, tell her I want to go home" and is worried Day wants her in a retirement permanently. Provided assurance that Day only wants what is best but if able to make it so that she is strong enough for safe return home will attempt. Denies any fever/chills, chest pain, shortness of breath, abdominal pain, nausea or vomiting at this time. Talked with Day, and she states she was attempting to tell Gilma if not compliant with treatment and follow-up. Review of Systems Review of Systems: All systems reviewed & are unremarkable except as noted in HPI & below Physical Exam Physical Exam: General: WD/WN female resting in bed, no acute distress HEENT: head normocephalic, atraumatic, mmm, trachea midline without deviation, thick neck, pupils equal, anicteric, ears nontender, hearing slightly diminished Resp: not tachypneic, no cough, lung sounds diminished in the bases, poor inspi ratory effort but much continued improved from days prior, on 1L NC CV: regular rhythm, rate, no m/r/g, trace pedal edema with chronic venous stasis changes and wraps to b/l LE, pulses palpable, wrinkling of skin, no open/draining wounds GI: +BS, soft, nontender MSK/Neuro; moves all extremities, no focal deficits, generalized weakness Skin: gluteal breakdown, covered, skin blanchable, no purulent drainage, b/l LE in wraps -- closed healing areas to lateral aspects bilaterally without erythema/pain Psych: alert to person/place, intellectual disability and continuously stating she wants to know when she can go home and tearful when talking about rehab Results & Data Results & Data ([facility]) Vital Signs (Past 12 Hours) Vital Signs Temp Pulse Pulse Resp BP Pulse Ox O2 Del Method 05/29/22 07:09 36.9 C 92 H 18 104/59 L 95 Nasal Cannula 05/28/22 23:30 Nasal Cannula 05/28/22 22:42 36.5 C 77 20 103/68 96 Nasal Cannula O2 Flow Rate 05/29/22 07:09 1 05/28/22 23:30 1 05/28/22 22:42 1 Laboratory Results 05/29/22 05/29/22 05/28/22 Range/Units 08:18 06:58 20:41 WBC (4.8-10.8) K/ul RBC (3.93-5.22) M/uL Hgb (12.0-16.0) g/dl Hct (34.1-44.9) % MCV (80.0-100.0) fL MCH (25.0-34.0) pg MCHC (32.0-36.0) g/dL RDW Std Deviation (36.4-46.3) fL RDW Coeff of Ewa (11.5-14.5) % Plt Count (130-400) K/uL MPV (9.4-12.3) fL Sodium 137 (136-145) mmol/L Potassium 3.7 (3.5-5.1) mmol/L Chloride 97 L (98-107) mmol/L Carbon Dioxide 32 (21-32) mmol/L Anion Gap 8 (3-11) BUN 16 (6-23) mg/dl Creatinine 0.85 (0.6-1.2) mg/dl Est Cr Clr Drug Dosing 70.0 ml/min Est GFR ( Amer) 83.9 ml/min Est GFR (Non-Af Amer) 72.4 ml/min BUN/Creatinine Ratio 18.8 (10-20) Glucose 141 H (70-99(Fasting)) mg/dl POC Glucose 144 H 151 H (70-99) mg/dl Calcium 8.7 (8.5-10.1) mg/dl Magnesium 1.9 (1.7-2.4) mg/dl Topiramate (see note) mcg/mL Levetiracetam (6.0-46.0) mcg/mL 05/28/22 05/28/22 05/28/22 Range/Units 17:20 12:26 09:57 WBC (4.8-10.8) K/ul RBC (3.93-5.22) M/uL Hgb (12.0-16.0) g/dl Hct (34.1-44.9) % MCV (80.0-100.0) fL MCH (25.0-34.0) pg MCHC (32.0-36.0) g/dL RDW Std Deviation (36.4-46.3) fL RDW Coeff of Ewa (11.5-14.5) % Plt Count (130-400) K/uL MPV (9.4-12.3) fL Sodium (136-145) mmol/L Potassium (3.5-5.1) mmol/L Chloride (98-107) mmol/L Carbon Dioxide (21-32) mmol/L Anion Gap (3-11) BUN (6-23) mg/dl Creatinine (0.6-1.2) mg/dl Est Cr Clr Drug Dosing ml/min Est GFR ( Amer) ml/min Est GFR (Non-Af Amer) ml/min BUN/Creatinine Ratio (10-20) Glucose (70-99(Fasting)) mg/dl POC Glucose 154 H 147 H (70-99) mg/dl Calcium (8.5-10.1) mg/dl Magnesium 1.8 (1.7-2.4) mg/dl Topiramate (see note) mcg/mL Levetiracetam (6.0-46.0) mcg/mL 05/28/22 05/28/22 05/28/22 Range/Units 09:57 09:57 08:58 WBC 7.82 (4.8-10.8) K/ul RBC 3.75 L (3.93-5.22) M/uL Hgb 9.6 L (12.0-16.0) g/dl Hct 31.7 L (34.1-44.9) % MCV 84.5 (80.0-100.0) fL MCH 25.6 (25.0-34.0) pg MCHC 30.3 L (32.0-36.0) g/dL RDW Std Deviation 43.8 (36.4-46.3) fL RDW Coeff of Ewa 14.1 (11.5-14.5) % Plt Count 252 (130-400) K/uL MPV 10.3 (9.4-12.3) fL Sodium 137 (136-145) mmol/L Potassium 3.3 L (3.5-5.1) mmol/L Chloride 97 L (98-107) mmol/L Carbon Dioxide 34 H (21-32) mmol/L Anion Gap 6 (3-11) BUN 17 (6-23) mg/dl Creatinine 0.89 (0.6-1.2) mg/dl Est Cr Clr Drug Dosing 66.8 ml/min Est GFR ( Amer) 79.4 ml/min Est GFR (Non-Af Amer) 68.5 ml/min BUN/Creatinine Ratio 19.1 (10-20) Glucose 195 H (70-99(Fasting)) mg/dl POC Glucose 143 H (70-99) mg/dl Calcium 8.9 (8.5-10.1) mg/dl Magnesium (1.7-2.4) mg/dl Topiramate (see note) mcg/mL Levetiracetam (6.0-46.0) mcg/mL 05/24/22 Range/Units 19:20 WBC (4.8-10.8) K/ul RBC (3.93-5.22) M/uL Hgb (12.0-16.0) g/dl Hct (34.1-44.9) % MCV (80.0-100.0) fL MCH (25.0-34.0) pg MCHC (32.0-36.0) g/dL RDW Std Deviation (36.4-46.3) fL RDW Coeff of Ewa (11.5-14.5) % Plt Count (130-400) K/uL MPV (9.4-12.3) fL Sodium (136-145) mmol/L Potassium (3.5-5.1) mmol/L Chloride (98-107) mmol/L Carbon Dioxide (21-32) mmol/L Anion Gap (3-11) BUN (6-23) mg/dl Creatinine (0.6-1.2) mg/dl Est Cr Clr Drug Dosing ml/min Est GFR ( Amer) ml/min Est GFR (Non-Af Amer) ml/min BUN/Creatinine Ratio (10-20) Glucose (70-99(Fasting)) mg/dl POC Glucose (70-99) mg/dl Calcium (8.5-10.1) mg/dl Magnesium (1.7-2.4) mg/dl Topiramate 14.8 (see note) mcg/mL Levetiracetam 43.4 (6.0-46.0) mcg/mL PG Care Time/CCT Total # of Minutes Spent Total Time Spent with Patient: Total time spent is greater than 50% in coordination of care (as documented) at patient's floor/unit and/or counseling patient: Coding Level of Care Code 13931 Subseq Hosp Care Lvl 2 Diagnoses Pyelonephritis N12 Bacteremia R78.81 Acute metabolic encephalopathy G93.41 Elevated troponin R77.8 Chronic respiratory failure with hypoxia and hypercapnia J96.11; J96.12 Venous stasis ulcers of both lower extremities I83.019; I83.029; L97.919; L97.929 Seizure disorder G40.909 Diabetes mellitus, type II E11.9 Diabetes mellitus complication status: without complication 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: without 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 operator use Hypertension I10 Hypertension type: essential hypertension NICM (nonischemic cardiomyopathy) I42.8 Asthma J45.909 Asthma complication type: uncomplicated Asthma persistence: unspecified Asthma severity: unspecified severity Anemia D64.9 Hypokalemia E87.6 (1) Diabetes mellitus, type II Diabetes mellitus complication status: without complication Diabetes mellitus chcf insulin use: without 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 operator use Qualified Code(s): E11.9 - Type 2 diabetes mellitus without complications (2) Hypertension Hypertension type: essential hypertension Qualified Code(s): I10 - Essential (primary) hypertension (3) Asthma Asthma complication type: uncomplicated Asthma persistence: unspecified Asthma severity: unspecified severity Qualified Code(s): J45.909 - Unspecified asthma, uncomplicated
[2022-05-29] MEDS: ASPIRIN 81 MG ECTAB PO SCH (09:24)
[2022-05-29] MEDS: NYSTATIN POWDER 15GM BTL EXT SCH ×2 (09:24→20:55)
[2022-05-29] MEDS: DOCUSATE SODIUM/SENNA 50/8.6MG TAB PO SCH (09:24)
[2022-05-29] MEDS: DOCUSATE SODIUM 100 MG CAP PO PRN (09:24)
[2022-05-29] MEDS: levETIRAcetam 500 MG TAB PO SCH ×2 (09:25→20:55)
[2022-05-29] MEDS: TOPIRAMATE 100 MG TAB PO SCH ×2 (09:25→20:55)
[2022-05-29] MEDS: SULFAMETHOXAZOLE/TRIMETHOPRIM DS 800/160MG TAB PO SCH ×2 (09:25→20:56)
[2022-05-29] MEDS: METOPROLOL SUCC 50MG EXT REL TAB PO SCH (09:25)
[2022-05-29] MEDS: SPIRONOLACTONE 12.5 MG TAB PO SCH (09:25)
[2022-05-29] MEDS: FUROSEMIDE 40 MG TAB PO SCH (09:25)
[2022-05-29] MEDS: ENOXAPARIN INJ 40 MG/0.4 ML SYR SQ SCH ×2 (09:26→20:55)
[2022-05-29] MEDS: LANTUS PER UNIT CHARGE SQ SCH ×2 (09:30→21:03)
[2022-05-29] MEDS: INSULIN ASPART PER UNIT SC SCH ×4 (09:30→21:02)
[2022-05-29] MEDS: ACETAMINOPHEN 325 MG TAB PO PRN (10:49)
[2022-05-29] MEDS: IRON SUCROSE 200 MG in 0.9 % SODIUM CHLORIDE 100 ML IV SCH (15:46)
[2022-05-29] MEDS: ATORVASTATIN 40 MG TAB PO SCH (20:55)
--- NOTE | 2022-05-30 08:09 | Hospitalist Progress Note ---
Date of Service May 30, 2022 Assessment & Plan (1) Pyelonephritis: Plan: 62yo female presenting with several days of increased lethargy, confusion. Prior COVID-19 infection end of February into March, no treatment required and d/c from ER UA w/ evidence for infection CTAP w/ ascending urinary infection, no stones Blood and urine cultures consistent with Ecoli Switched from Cefepime (given hx pseudomonas) to ceftriaxone -- repeat ekg w/ continued borderlined QTC and decision not to use quinolone Pansensitive except ampicillin/sulbactam and cefazolin --> switched to Bactrim 05/28 to complete 14 day course, end date 06/07 WBC wnl, afebrile PT/OT consulted, rec rehab at this point, however patient adamant about wanting to go home. * Of note, patient admit 2019 and at that time was determined patient did not lack understanding to make decisions for herself. Family working on getting POA but needing patient to sign/with witness outpatient and currently with infection not possible but daughter who is caregiver would consider rehab if n eeded ([facility] the [facility]) but primary goal to get patient to be able to pivot safely as she reports Svetlana almost fell [employer] and she was caught by her daughter but fears for falls at home if mobility not at least slightly improved * Recommending rehab at present but consider home while waiting for bed if able to make improvements with therapy inpatient Updated daughter Yesenia afternoon 05/29 and if able to make improvements would consider home, possibly home health PT/OT pending course throughout weekend. Continued encouragement for patient provided and she is agreeable to continue to work with therapy Continued PT/OT while inpatient, CM following (2) Bacteremia: Plan: 2nd to urinary source. of note, daughter who is caregiver states patient in power chair and does sit for extended periods of time in wet briefs despite being told about possibly getting UTI (3) Acute metabolic encephalopathy: Plan: improved, at baseline cognition abx for UTI/pyelo as above (4) Elevated troponin: Plan: Patient with mildly elevated HS-troponin of 14.1. She denies chest pain, SOB (above baseline) or palpitations. No acute ischemic findings on EKG. Trop 14.1--> 20.7, suspect demand from infection, but also noted patient does have history of iron deficiency anemia as well per daughter-- iron studies added and iron 13, trans % sat low at 5 Venofer 200mg IV on 05/25, 05/26, 05/27 and will complete 5 total 200mg while inpatient Hgb improved to 9.6 on repeat and no need for further repeat at this time Continue ASA 81mg po daily Continue Atorvastatin 40mg po daily Continue Metoprolol 50mg po daily EKG w/ CP (5) Chronic respiratory failure with hypoxia and hypercapnia: Plan: Presently with no SOB. Adequate oxygenation on usual 2L Incentive spirometer added and encouraged but hasn't been using much CXR w/ some congestion, provided additional dose lasix with IV venofer 05/26, consider additional diuretic with venofer if needed but stable on 1L at rest and typically on 2L Continue albuterol HFA prn Denies SOB on exam Added incentive spirometer and encouraged use Supplemental O2 as needed, titrate to maintain sats to prevent over correction given baseline hypercapnia and with titration to 1L CO2 improved, monitor in AM (6) Venous stasis ulcers of both lower extremities: Plan: Improving. Dressings in place Continue wound care daily and as needed Wound RN consulted (of note, prior wound cx jul 2021 w/ the pseudomonas, sept w/ MRSA and has been following locally w/ wound center) (7) Seizure disorder: Plan: Chronic. Stable Continue keppra, topamax hx noncompliance but stated has been getting these at home Levels for both in normal range, no evidence for seizure activity (8) Diabetes mellitus, type II: Plan: Chronic, A1c w/ AM labs -- 6.6 but given anemia unreliable Hold home injectable Continue lantus 8u BID, ISS while inpatient BSGs acceptable and will monitor (9) Hypertension: Plan: Blood pressure borderline low at baseline, currently 125/78 though and improved Continue BB, spironolactone Lasix for now given congestive changes on CXR on admit extra dose Lasix on 05/26 x1 Continue AHA diet Monitor (10) NICM (nonischemic cardiomyopathy): Plan: Compensated Continue Metoprolol 50mg, Spironolactone 12.5mg, ASA 81mg daily No CP reported (11) Asthma: Plan: Chronic. Stable -Albuterol PRN -Continue home O2 (12) Anemia: Plan: chronic, had been on PO iron in past, talks about IV in outpatient notes checked Iron panel as above given hgb in 8s, no active signs of bleeding Venofer IV 2nd dose today B12 without deficiency hgb 8.7--> 9.6 after 3 doses Venofer and complete 5 doses 200mg IV (13) Hypokalemia: Plan: K 3.3 on Am labs, ordered 20meq Kcl as switching to Bactrim Repeat wnl and will monitor in AM as given extra dose lasix with repeat Venofer and maybe slight volume up on exam w/ increased LE pedal edema bilaterally Plan continued inpatient stay PT/OT consulted and either rehab if unable to meet goals or home w/ HH if able to progress while waiting bed Admission and Anticipated Discharge Date Admission Date: May 24, 2022 Supervising Physician Co-Signing Physician Notes ZULEMA Supervision Note: I did not personally see or examine the patient today, but I verified all macias points of ZULEMA Michaud's assessment and plan with the following exceptions/additions: None Subjective Eval this morning, no acute events. has been working with staff, eating/drinking without issue stable on 1-2 L NC, getting additional venofer and will give extra dose of lasix this evening discussed with svetlana to continue to work with therapy in hopes of getting her home next week daily or will need to consider rehab Review of Systems Review of Systems: All systems reviewed & are unremarkable except as noted in HPI & below Physical Exam 2 Physical Exam: General: WD/WN female resting in bed,resting upon entry, no acute distress HEENT: head normocephalic, atraumatic, mmm, trachea midline without deviation, thick neck, pupils equal, anicteric, ears nontender, hearing slightly diminished Resp: not tachypneic, no cough, lung sounds diminished in the bases, faint end expiratory wheezing, on 2L NC CV: regular rhythm, rate, no m/r/g, 1+ pedal edema with chronic venous stasis changes and wraps to b/l LE, pulses palpable, wrinkling of skin, no open/draining wounds GI: +BS, soft, nontender MSK/Neuro; moves all extremities, no focal deficits, generalized weakness Skin: gluteal breakdown, covered, skin blanchable, no purulent drainage, b/l LE in wraps -- closed healing areas to lateral aspects bilaterally without erythema/pain Psych: alert to person/place, intellectual disability Results & Data Results & Data ([facility]) Vital Signs (Past 12 Hours) Vital Signs Temp Pulse Pulse Resp BP BP Pulse Ox 05/30/22 07:29 37.1 C 89 20 114/76 91 05/29/22 23:43 92 05/29/22 23:39 36.8 C 87 18 98/65 L 86 L 05/29/22 21:00 O2 Del Method O2 Flow Rate 05/30/22 07:29 Nasal Cannula 2 05/29/22 23:43 Nasal Cannula 2 05/29/22 23:39 Room Air 05/29/22 21:00 Room Air Laboratory Results 05/29/22 05/29/22 05/29/22 Range/Units 20:51 17:15 12:19 POC Glucose 141 H 134 H 129 H (70-99) mg/dl 05/29/22 Range/Units 08:18 POC Glucose 144 H (70-99) mg/dl PG Care Time/CCT Total # of Minutes Spent Total Time Spent with Patient: Total time spent is greater than 50% in coordination of care (as documented) at patient's floor/unit and/or counseling patient: Coding Level of Care Code 38374 Subseq Hosp Care Lvl 1 Diagnoses Pyelonephritis N12 Bacteremia R78.81 Acute metabolic encephalopathy G93.41 Elevated troponin R77.8 Chronic respiratory failure with hypoxia and hypercapnia J96.11; J96.12 Venous stasis ulcers of both lower extremities I83.019; I83.029; L97.919; L97.929 Seizure disorder G40.909 Diabetes mellitus, type II E11.9 Diabetes mellitus complication status: without complication Diabetes mellitus fdc insulin use: without longwall headgate operator use Hypertension I10 Hypertension type: essential hypertension NICM (nonischemic cardiomyopathy) I42.8 Asthma J45.909 Asthma complication type: uncomplicated Asthma persistence: unspecified Asthma severity: unspecified severity Anemia D64.9 Hypokalemia E87.6 (1) Diabetes mellitus, type II Diabetes mellitus complication status: without complication 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
[2022-05-30] MEDS: INSULIN ASPART PER UNIT SC SCH ×4 (09:36→21:48)
[2022-05-30] MEDS: FUROSEMIDE 40 MG TAB PO SCH (09:37)
[2022-05-30] MEDS: METOPROLOL SUCC 50MG EXT REL TAB PO SCH (09:37)
[2022-05-30] MEDS: levETIRAcetam 500 MG TAB PO SCH ×2 (09:37→21:44)
[2022-05-30] MEDS: SPIRONOLACTONE 12.5 MG TAB PO SCH (09:37)
[2022-05-30] MEDS: ASPIRIN 81 MG ECTAB PO SCH (09:37)
[2022-05-30] MEDS: TOPIRAMATE 100 MG TAB PO SCH ×2 (09:37→21:44)
[2022-05-30] MEDS: SULFAMETHOXAZOLE/TRIMETHOPRIM DS 800/160MG TAB PO SCH ×2 (09:38→21:44)
[2022-05-30] MEDS: NYSTATIN POWDER 15GM BTL EXT SCH ×2 (09:38→21:46)
[2022-05-30] MEDS: ENOXAPARIN INJ 40 MG/0.4 ML SYR SQ SCH ×2 (09:38→21:43)
[2022-05-30] MEDS: LANTUS PER UNIT CHARGE SQ SCH ×2 (09:39→21:48)
[2022-05-30] MEDS: DOCUSATE SODIUM/SENNA 50/8.6MG TAB PO SCH (09:46)
[2022-05-30] MEDS ORDERED: FUROSEMIDE 40 MG TAB PO ONE (17:00)
[2022-05-30] MEDS: ATORVASTATIN 40 MG TAB PO SCH (21:44)
[2022-05-31] MEDS: METOPROLOL SUCC 50MG EXT REL TAB PO SCH (07:44)
[2022-05-31] MEDS: FUROSEMIDE 40 MG TAB PO SCH (07:45)
[2022-05-31] MEDS: TOPIRAMATE 100 MG TAB PO SCH ×2 (07:45→21:54)
[2022-05-31] MEDS: levETIRAcetam 500 MG TAB PO SCH ×2 (07:45→21:53)
[2022-05-31] MEDS: SULFAMETHOXAZOLE/TRIMETHOPRIM DS 800/160MG TAB PO SCH ×2 (07:45→21:54)
[2022-05-31] MEDS: ASPIRIN 81 MG ECTAB PO SCH (07:45)
[2022-05-31] MEDS: ENOXAPARIN INJ 40 MG/0.4 ML SYR SQ SCH (07:46)
[2022-05-31] MEDS: NYSTATIN POWDER 15GM BTL EXT SCH ×2 (07:46→21:53)
[2022-05-31] MEDS: SPIRONOLACTONE 12.5 MG TAB PO SCH (07:46)
--- NOTE | 2022-05-31 07:54 | Hospitalist Progress Note ---
Date of Service May 31, 2022 Assessment & Plan (1) Pyelonephritis: Plan: 62yo female presenting with several days of increased lethargy, confusion. Prior COVID-19 infection end of February into March, no treatment required and d/c from ER UA w/ evidence for infection-> metabolic encephalopathy CTAP w/ ascending urinary infection, no stones-> pyleonephritis Blood and urine cultures consistent with Ecoli Switched from Cefepime (given hx pseudomonas) to ceftriaxone -n --> switched to Bactrim 05/28 to complete 14 day course, end date 06/07 WBC wnl, afebrile PT/OT consulted, rec rehab at this point, however patient adamant about wanting to go home. * Of note, patient admit 2019 and at that time was determined patient did not lack understanding to make decisions for herself. 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 Continued encouragement for patient provided and she is agreeable to continue to work with therapy Continued PT/OT while inpatient, CM following (2) Bacteremia: Plan: 2nd to urinary source. of note, daughter who is caregiver states patient in power chair and does sit for extended periods of time in wet briefs despite being told about possibly getting UTI (3) Bleeding: Plan: Pt has a few large bullae full of blood on LE, one on the right opened up when she transfered to chair, would care did address and will have surgical consultation family called and is aware (4) Acute metabolic encephalopathy: Plan: improved, at baseline cognition abx for UTI/pyelo as above (5) Elevated troponin: Plan: Patient with mildly elevated HS-troponin of 14.1. She denies chest pain, SOB (above baseline) or palpitations. No acute ischemic findings on EKG. Trop 14.1--> 20.7, suspect demand from infection, iron deficiency anemia as well per daughter-- iron studies added and iron 13, trans % sat low at 5 Venofer 200mg IV will complete 5 total 200mg while inpatient Hgb improved to 9.6 on repeat and no need for further repeat at this time Continue ASA 81mg po daily Continue Atorvastatin 40mg po daily Continue Metoprolol 50mg po daily EKG w/ CP (6) Chronic respiratory failure with hypoxia and hypercapnia: Plan: Presently with no SOB. Adequate oxygenation on usual 2L Incentive spirometer added and encouraged but hasn't been using much CXR w/ some congestion, provided additional dose lasix with IV venofer 05/26, consider additional diuretic with venofer if needed but stable on 1L at rest and typically on 2L Continue albuterol HFA prn Added incentive spirometer (7) Venous stasis ulcers of both lower extremities: Plan: Improving. Dressings in place Continue wound care daily and as needed Wound RN consulted (of note, prior wound cx jul 2021 w/ the pseudomonas, sept w/ MRSA and has been following locally w/ wound center) (8) Seizure disorder: Plan: Chronic. Stable Continue keppra, topamax hx noncompliance but stated has been getting these at home Levels for both in normal range, no evidence for seizure activity (9) Diabetes mellitus, type II: Plan: Chronic, A1c w/ AM labs -- 6.6 but given anemia unreliable Hold home injectable Continue lantus 8u BID, ISS while inpatient BSGs acceptable and will monitor (10) Hypertension: Plan: Blood pressure borderline low at baseline, currently 125/78 though and improved Continue BB, spironolactone Lasix for now given congestive changes on CXR on admit, extra dose Lasix on 05/26 x1 Continue AHA diet (11) NICM (nonischemic cardiomyopathy): Plan: Compensated Continue Metoprolol 50mg, Spironolactone 12.5mg, ASA 81mg daily No CP reported (12) Asthma: Plan: Chronic. Stable -Albuterol PRN -Continue home O2 (13) Anemia: Plan: chronic, had been on PO iron in past, talks about IV in outpatient notes checked Iron panel as above given hgb in 8s, no active signs of bleeding B12 without deficiency hgb 8.7--> 9.6 after Venofer with bleeding 08/01/22 pt likely will have some acute blood loss anemia, will check and follow Admission and Anticipated Discharge Date Admission Date: May 24, 2022 Subjective this pt was transferring to chair and had a RLE venous stasis/varicosity open up and bleed profusely was controlled and woud care did see and dress general surgery recommendation for possible surgical intervention family was contacted and will advise pt on consent Review of Systems Review of Systems: Mild distress and fatigue no headache, no visual changes no speech or swallowing issues no chest pain, pressure or palpitations no shortness of breath, cough or wheezes no abdominal pain, nausea or vomiting, diarrhea or constipation no dysuria, hematuria or frequency no focal joint pain or swelling no back pain, CVA tenderness or radicular pain chronic venous stasis changes and some bullae full of blood on b/l LE no focal signs of weakness or numbness or altered sensation no complaints of anxiety or depression.. Physical Exam Physical Exam: The patient appeared well nourished and normally developed. Vital signs as documented. Head exam is normocephalic atraumatic Neck is without JVD, thyromegaly, or carotid bruits. Lungs are clear to auscultation, no focal loss of breath sounds Cardiac exam, Rhythm is regular.. No murmurs, rubs or gallops. Abdominal exam reveals normal bowel sounds, soft non tender, no masses Extremities are edematous, scaly and with chronic venous stasis changes Neurologic exam is alert and oriented, no focal loss of strength or sensation Skin is with significant chronic venous stasis changes to LE and large bullae one of which did bleed Psychologically is without concerns for intellectual limitations Results & Data Results & Data ([facility]) Vital Signs (Past 12 Hours) Vital Signs Temp Pulse Pulse Resp BP Pulse Ox O2 Del Method 05/31/22 07:25 97.7 F 84 20 109/72 95 Nasal Cannula 05/30/22 23:05 98.4 F 83 20 97/63 L 98 Nasal Cannula 05/30/22 21:35 Nasal Cannula O2 Flow Rate 05/31/22 07:25 2 05/30/22 23:05 2 05/30/22 21:35 2 PG Care Time/CCT Total # of Minutes Spent Total Time Spent with Patient: Total time spent is greater than 50% in coordination of care (as documented) at patient's floor/unit and/or counseling patient: Coding Level of Care Code 89729 Subseq Hosp Care Lvl 3 Diagnoses Pyelonephritis N12 Bacteremia R78.81 Bleeding R58 Acute metabolic encephalopathy G93.41 Elevated troponin R77.8 Chronic respiratory failure with hypoxia and hypercapnia J96.11; J96.12 Venous stasis ulcers of both lower extremities I83.019; I83.029; L97.919; L97.929 Seizure disorder G40.909 Diabetes mellitus, type II E11.9 Diabetes mellitus complication status: without complication Diabetes mellitus mcfp insulin use: without mcfp use Hypertension I10 Hypertension type: essential hypertension NICM (nonischemic cardiomyopathy) I42.8 Asthma J45.909 Asthma complication type: uncomplicated Asthma persistence: unspecified Asthma severity: unspecified severity Anemia D64.9 (1) Diabetes mellitus, type II Diabetes mellitus complication status: without complication Diabetes mellitus mcfp insulin use: without ferry terminal 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
[2022-05-31 08:46] LABS: BUN Creatinine Ratio 14.9 (10-20); Calcium 8.7 mg/dl (8.5-10.1); Creatinine Clr Calc Pharmacy 44.4 ml/min; Est GFR (African American) 48.4 ml/min; Est GFR (Non-African American) 41.8 ml/min; Potassium 3.8 mmol/L (3.5-5.1)
[2022-05-31] MEDS: INSULIN ASPART PER UNIT SC SCH ×4 (09:15→21:33)
[2022-05-31] MEDS: DOCUSATE SODIUM/SENNA 50/8.6MG TAB PO SCH (09:15)
[2022-05-31] MEDS: LANTUS PER UNIT CHARGE SQ SCH ×2 (09:15→21:57)
--- NOTE | 2022-05-31 15:52 | Surgery Consultation ---
Date of Consultation May 31, 2022 Assessment & Plan (1) Venous stasis ulcers of both lower extremities: This is a 62yF with multiple medical issues including seizure disorder, CHF, HTN, sleep apnea, DM2 who presented to the [facility] ED on 05/23/22 with altered mental status and weakness. Patient is being treated for UTI with concern for pyelonephritis along with bacteremia, currently on Bactrim. Patient has been seen by our wound care clinic over the last few years for her venous stasis ulcers and lymphedema. It has been cared with local wound care this admission, however patient developed new hematoma's of the bilateral LE's noted today. Patient evaluated at bedside sitting up in chair, sleepy, not able to contribute much to history. Bilateral lower extremities noted to have multiple hematoma's seeping bloody drainage on dressings. In addition wound care's pictures are noted in the chart. Appears deteriorated since admission. Unsure if they would spontaneously drain fully...may require intervention for drainage. We will make patient NPO at midnight and re-evaluate tomorrow morning and make a decision at that point. At the time of my interview patient does state she does not want to undergo surgery as she says she is scared. Appears to live with son and [id number] who may help with some decision making. Continue local wound care for now as per wound cares recommendations. We will follow. Supervising Physician Co-Signing Physician Notes I personally saw and evaluated the patient with Andreia Brewer PA-C and agree with the assessment and plan. 62-year-old female with history of venous stasis ulcers now with multiple hematoma/blood blister of the lower extremities bilaterally The areas would ideally benefit from debridement at some point, however the patient is hesitant to proceed with this I did speak with the family who is going to come in and speak with the patient about operative debridement with sedation I do not think she would tolerate debridement at the bedside based on her pain tolerance while examining her Keep n.p.o. for now History of Present Illness Attending Physician: Chinedu Daley MD History of Present Illness This is a 62yF with multiple medical issues including seizure disorder, CHF, HTN, sleep apnea, DM2 who presented to the [facility] ED on 05/23/22 with altered mental status and weakness. Patient is being treated for UTI with concern for pyelonephritis along with bacteremia, currently on Bactrim. Hospitalists working on discharge planning for rehab vs. home. We have been consulted today as patient has a longstanding history of venous stasis ulcers with recent development of multiple hematoma's on her lower extremities. Patient is a poor historian and majority of history obtained from chart review. Wound care has been seeing the patient and today recommended we evaluate her given the hematoma's. She has been followed at the wound care center over the past years for her venous stasis ulcers and lymphedema. Allergies Allergy/AdvReac Type Severity Reaction Status Date / Time acetaminophen Allergy Severe Unresponsiv Verified 05/24/22 18:01 [From Tylenol-Codeine] e ceftaroline fosamil Allergy Mild ITCHING Verified 05/24/22 18:01 HANDS latex Allergy Mild Unknown Verified 05/24/22 18:01 SABINE Inhibitors Allergy Unknown Unknown Verified 05/24/22 18:01 codeine Allergy Unknown Unknown Verified 05/24/22 18:01 erythromycin base Allergy Unknown Unknown Verified 05/24/22 18:01 Iodinated Contrast Media Allergy Unknown Unknown Verified 05/24/22 18:01 Iodine and Iodide Containing Allergy Unknown Unknown Verified 05/24/22 18:01 Produc morphine Allergy Unknown Unknown Verified 05/24/22 18:01 Penicillins AdvReac Intermediate MAKES HER Verified 05/24/22 18:01 "FUNNY IN THE HEAD" Home Medications Medication Instructions Recorded Confirmed Type topiramate 100 mg tablet (Topamax) 100 mg PO UD 06/26/18 05/24/22 History furosemide 40 mg tablet (Lasix) 40 mg PO QAM 03/13/19 05/24/22 History metoprolol succinate 50 mg 50 mg PO DAILY #30 tabs 03/21/19 05/24/22 Rx tablet,extended release 24 hr (Toprol XL) spironolactone 25 mg tablet 12.5 mg PO DAILY #0 tabs 03/21/19 05/24/22 Rx albuterol sulfate 90 mcg/actuation 2 puffs inhalation QID PRN 01/25/20 05/24/22 History aerosol inhaler Shortness Of Breath Or Wheezing nitroglycerin 0.4 mg sublingual 0.4 mg sublingual Q5M PRN Chest 01/25/20 05/24/22 History tablet Pain aspirin 81 mg tablet,delayed 81 mg PO DAILY 08/12/20 05/24/22 History release cyanocobalamin (vitamin B-12) 1,000 mcg PO DAILY 08/12/20 05/24/22 History 1,000 mcg tablet (Vitamin B-12) cyanocobalamin (vitamin B-12) 1,000 mcg IM Q30D 08/12/20 05/24/22 History 1,000 mcg/mL injection solution ferrous sulfate 325 mg (65 mg 325 mg PO DAILY 08/12/20 05/24/22 History iron) tablet nystatin 100,000 unit/gram topical 1 applic topical BID 08/12/20 05/24/22 History powder atorvastatin 40 mg tablet 40 mg PO HS 10/15/21 05/24/22 History levetiracetam 1,000 mg tablet 1,000 mg PO BID 10/15/21 05/24/22 History sitagliptin 50 mg-metformin 500 mg 1 tab PO DAILY 10/15/21 05/24/22 History tablet (Janumet) multivitamin with minerals-folic 2 tab PO DAILY 05/24/22 05/24/22 History acid 200 mcg chewable tablet (Adult Multivitamin Gummies) Patient History Medical History Adenoma of large intestine Asthma Cardiomyopathy Cellulitis 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, managed as type 2 Diverticulosis DVT (deep venous thrombosis) Encephalopathy GERD (gastroesophageal reflux disease) Hyperlipidemia LDL goal <100 Left bundle branch block (LBBB) Lymphedema Mixed conductive and sensorineural hearing loss of left ear with restricted hearing of right ear MSSA (methicillin susceptible Staphylococcus aureus) Obesity Rectal polyp Seizure Sleep apnea Systolic CHF Thyroid nodule Surgical History H/O sinus surgery H/O: hysterectomy Tubal ligation status Family History Father Hypertension Stroke Sister Seizure Brother Seizure Mother Leukemia Social History Smoking Status: Never smoker Second Hand Exposure: No; Hx Alcohol Use: No Hx Substance Use: No Preferred Language: Bengali Communication Ability: Impaired Media Services Specialist Required: No Beliefs That Will Affect Care: None marital status: Single Current Living Situation: Spouse Current Living Situation Comment: roomate/ boyfriend How many Children do You have: 1 Feels Safe at Home: Yes Assistive Devices: Oxygen - Continuous Review of Systems Integumentary: leg wounds present for "years" Physical Exam Physical Exam: sitting in chair. not very communicative and appears sleepy Respiratory: normal respiratory effort on supplemental O2 Skin: bilateral lower extremity wounds noted, one larger hematoma on RLE and 2-3 smaller ones on LLE...each with bloody seeping drainage on dressings Results & Data ([facility]) Vital Signs (Past 12 Hours) Vital Signs Temp Pulse Pulse Resp BP Pulse Ox O2 Del Method 05/31/22 15:40 36.9 C 86 17 102/66 96 Nasal Cannula 05/31/22 07:25 36.5 C 84 20 109/72 95 Nasal Cannula O2 Flow Rate 05/31/22 15:40 1.5 05/31/22 07:25 2 PG Care Time/CCT Total # of Minutes Spent Total Time Spent with Patient: Total time spent is greater than 50% in coordination of care (as documented) at patient's floor/unit and/or counseling patient: Coding Level of Care Code 13923 Initial Inpt Care Lvl 1 Diagnoses Venous stasis ulcers of both lower extremities I83.019; I83.029; L97.919; L97.929
[2022-05-31] MEDS: ATORVASTATIN 40 MG TAB PO SCH (21:52)
[2022-06-01 06:57] LABS: Hematocrit (blood only) 26.5 % (34.1-44.9); Hemoglobin 8.1 g/dl (12.0-16.0); Mean Corpuscular Hemoglobin 25.9 pg (25.0-34.0); Mean Corpuscular Hgb Conc 30.6 g/dL (32.0-36.0); Mean Corpuscular Volume 84.7 fL (80.0-100.0); Mean Platelet Volume 10.2 fL (9.4-12.3); Platelet Count 332 K/uL (130-400); RDW Coefficient of Variation 15.4 % (11.5-14.5); RDW Standard Deviation 44.4 fL (36.4-46.3); Red Blood Count 3.13 M/uL (3.93-5.22); White Blood Count 9.91 K/ul (4.8-10.8)
[2022-06-01 07:18] LABS: BUN Creatinine Ratio 15.2 (10-20); Calcium 8.7 mg/dl (8.5-10.1); Creatinine Clr Calc Pharmacy 36.1 ml/min; Est GFR (African American) 37.6 ml/min; Est GFR (Non-African American) 32.5 ml/min
[2022-06-01] MEDS: METOPROLOL SUCC 50MG EXT REL TAB PO SCH (08:22)
[2022-06-01] MEDS: FUROSEMIDE 40 MG TAB PO SCH (08:28)
[2022-06-01] MEDS: SULFAMETHOXAZOLE/TRIMETHOPRIM DS 800/160MG TAB PO SCH ×2 (08:29→20:48)
[2022-06-01] MEDS: TOPIRAMATE 100 MG TAB PO SCH ×2 (08:29→20:48)
[2022-06-01] MEDS: SPIRONOLACTONE 12.5 MG TAB PO SCH (08:29)
[2022-06-01] MEDS: DOCUSATE SODIUM/SENNA 50/8.6MG TAB PO SCH (08:29)
[2022-06-01] MEDS: NYSTATIN POWDER 15GM BTL EXT SCH ×2 (08:29→20:48)
[2022-06-01] MEDS: levETIRAcetam 500 MG TAB PO SCH ×2 (08:29→20:47)
[2022-06-01] MEDS: INSULIN ASPART PER UNIT SC SCH ×4 (08:36→20:46)
[2022-06-01] MEDS: LANTUS PER UNIT CHARGE SQ SCH ×2 (08:37→20:47)
--- NOTE | 2022-06-01 08:55 | Surgery Progress Note ---
Date of Service June 01, 2022 Assessment & Plan (1) Venous stasis ulcers of both lower extremities: Plan: will discuss with family possible debridement in OR with sedation today if she agrees Admission and Anticipated Discharge Date Admission Date: May 24, 2022 Supervising Physician Co-Signing Physician Notes I personally saw and evaluated the patient with Francisco Aguilar PA-C and agree with the assessment and plan. 62-year-old female with history of venous stasis ulcers now with multiple hematoma/blood blister of the lower extremities bilaterally The areas would ideally benefit from debridement at some point, however the patient is hesitant to proceed with this I did speak with the family who is going to come in and speak with the patient about operative debridement with sedation I do not think she would tolerate debridement at the bedside based on her pain tolerance while examining her Keep n.p.o. for now Subjective NPO for possible surgery although she does not want to go to OR Physical Exam Skin: large RLE hematoma multiple LLE hematomas Results & Data ([facility]) Vital Signs (Past 12 Hours) Vital Signs Temp Pulse Pulse Resp BP Pulse Ox O2 Del Method 06/01/22 08:21 36.8 C 84 16 93/60 L 99 Nasal Cannula 06/01/22 00:02 Nasal Cannula 05/31/22 23:01 36.7 C 91 H 20 123/89 97 Nasal Cannula O2 Flow Rate 06/01/22 08:21 2 06/01/22 00:02 2 05/31/22 23:01 2.0 PG Care Time/CCT Total # of Minutes Spent Total Time Spent with Patient: Total time spent is greater than 50% in coordination of care (as documented) at patient's floor/unit and/or counseling patient: Coding Level of Care Code 19514 Subseq Hosp Care Lvl 1 Diagnoses Venous stasis ulcers of both lower extremities I83.019; I83.029; L97.919; L97.929
[2022-06-01] MEDS ORDERED: Nursing to Pharmacy Communication SCH ×2 (11:45→16:00)
[2022-06-01] MEDS ORDERED: INSULIN ASPART PER UNIT SC SCH (12:00)
[2022-06-01] MEDS ORDERED: ceFAZolin 2,000 MG/15 ML IV PUSH IV ONE (13:28)
--- NOTE | 2022-06-01 13:30 | Anesthesiology Consultation ---
Date of Service June 01, 2022 Assessment & Plan (1) Encounter for pre-operative examination: Chart Review Chart Review: Acceptable Risk for Surgery and Patient NOT seen in Pre Admission Testing Consults Requested none History Surgery Operation Date: 06/01/22 12:10 Proposed Procedures p Bilateral Leg Wound Debridement - Santos Jones DO Height/Weight Height: 5 ft 2 in Weight: 90.6 kg Allergies Allergy/AdvReac Type Severity Reaction Status Date / Time acetaminophen Allergy Severe Unresponsiv Verified 05/24/22 18:01 [From Tylenol-Codeine] e ceftaroline fosamil Allergy Mild ITCHING Verified 05/24/22 18:01 HANDS latex Allergy Mild Unknown Verified 05/24/22 18:01 SABINE Inhibitors Allergy Unknown Unknown Verified 05/24/22 18:01 codeine Allergy Unknown Unknown Verified 05/24/22 18:01 erythromycin base Allergy Unknown Unknown Verified 05/24/22 18:01 Iodinated Contrast Media Allergy Unknown Unknown Verified 05/24/22 18:01 Iodine and Iodide Containing Allergy Unknown Unknown Verified 05/24/22 18:01 Produc morphine Allergy Unknown Unknown Verified 05/24/22 18:01 Penicillins AdvReac Intermediate MAKES HER Verified 05/24/22 18:01 "FUNNY IN THE HEAD" Medications Home Medications Medication Instructions Recorded Confirmed Last Taken topiramate 100 mg tablet (Topamax) 100 mg PO UD 06/26/18 05/24/22 08/08/19 furosemide 40 mg tablet (Lasix) 40 mg PO QAM 03/13/19 05/24/22 08/08/19 metoprolol succinate 50 mg 50 mg PO DAILY #30 tabs 03/21/19 05/24/22 Unknown tablet,extended release 24 hr (Toprol XL) spironolactone 25 mg tablet 12.5 mg PO DAILY #0 tabs 03/21/19 05/24/22 Unknown albuterol sulfate 90 mcg/actuation 2 puffs inhalation QID PRN 01/25/20 05/24/22 Unknown aerosol inhaler Shortness Of Breath Or Wheezing nitroglycerin 0.4 mg sublingual 0.4 mg sublingual Q5M PRN Chest 01/25/20 05/24/22 Unknown tablet Pain aspirin 81 mg tablet,delayed 81 mg PO DAILY 08/12/20 05/24/22 Unknown release cyanocobalamin (vitamin B-12) 1,000 mcg PO DAILY 08/12/20 05/24/22 Unknown 1,000 mcg tablet (Vitamin B-12) cyanocobalamin (vitamin B-12) 1,000 mcg IM Q30D 08/12/20 05/24/22 Unknown 1,000 mcg/mL injection solution ferrous sulfate 325 mg (65 mg 325 mg PO DAILY 08/12/20 05/24/22 Unknown iron) tablet nystatin 100,000 unit/gram topical 1 applic topical BID 08/12/20 05/24/22 Unknown powder atorvastatin 40 mg tablet 40 mg PO HS 10/15/21 05/24/22 Unknown levetiracetam 1,000 mg tablet 1,000 mg PO BID 10/15/21 05/24/22 Unknown sitagliptin 50 mg-metformin 500 mg 1 tab PO DAILY 10/15/21 05/24/22 Unknown tablet (Janumet) multivitamin with minerals-folic 2 tab PO DAILY 05/24/22 05/24/22 Unknown acid 200 mcg chewable tablet (Adult Multivitamin Gummies) Active Medications Generic Name Dose Route Start Last Admin Trade Name Freq PRN Reason Stop Dose Admin Aspirin 81 mg 05/25/22 09:00 05/31/22 07:45 Aspirin 81 Mg Ectab PO 06/24/22 08:59 81 mg DAILY MIGUEL Administration Atorvastatin Calcium 40 mg 05/24/22 22:21 05/31/22 21:52 Atorvastatin 40 Mg Tab PO 06/23/22 22:20 40 mg HS MIGUEL Administration Docusate Sodium 100 mg 05/24/22 22:21 05/29/22 09:24 Docusate Sodium 100 Mg Cap PO 06/23/22 22:20 100 mg BID PRN Administration Constipation Furosemide 40 mg 05/25/22 09:00 06/01/22 08:28 Furosemide 40 Mg Tab PO 06/24/22 08:59 40 mg QAM MIGUEL Administration Insulin Aspart 0 units 06/01/22 12:00 06/01/22 12:35 Insulin Aspart Per Unit SC 06/23/22 22:20 1 units Q6 MIGUEL Administration Insulin Glargine 8 units 05/24/22 22:21 06/01/22 08:37 Lantus Per Unit Charge SQ 06/23/22 22:20 8 units BID MIGUEL Administration Levetiracetam 1,000 mg 05/24/22 22:21 06/01/22 08:29 Levetiracetam 500 Mg Tab PO 06/23/22 22:20 1,000 mg BID MIGUEL Administration Metoprolol Succinate 50 mg 05/25/22 09:00 06/01/22 08:22 Metoprolol Succ 50mg Ext Rel Tab PO 06/24/22 08:59 Not Given DAILY MIGUEL Nystatin 1 appln 05/24/22 22:21 06/01/22 08:29 Nystatin Powder 15gm Btl EXT 06/23/22 22:20 1 appln BID MIGUEL Administration Senna/Docusate Sodium 1 tab 05/27/22 12:00 06/01/22 08:29 Docusate Sodium/Senna 50/8.6mg Tab PO 06/26/22 11:59 1 tab QAM MIGUEL Administration Spironolactone 12.5 mg 05/25/22 09:00 06/01/22 08:29 Spironolactone 12.5 Mg Tab PO 06/24/22 08:59 12.5 mg DAILY MIGUEL Administration Topiramate 100 mg 05/25/22 09:00 06/01/22 08:29 Topiramate 100 Mg Tab PO 06/24/22 08:59 100 mg BID MIGUEL Administration Trimethoprim/Sulfamethoxazole 1 tab 05/28/22 21:00 06/01/22 08:29 Sulfamethoxazole/Trimethoprim Ds 800/160mg Tab PO 06/11/22 20:59 1 tab Q12 MIGEUL Administration NPO Date Last Intake of Fluids: 05/31/22 Time Last Intake of Fluids: 18:00 Date Last Intake of Solids: 05/31/22 Time Last Intake of Solids: 18:00 Past Medical History Medical History Adenoma of large intestine Asthma Cardiomyopathy Cellulitis 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, managed as type 2 Diverticulosis DVT (deep venous thrombosis) Encephalopathy GERD (gastroesophageal reflux disease) Hyperlipidemia LDL goal <100 Left bundle branch block (LBBB) Lymphedema Mixed conductive and sensorineural hearing loss of left ear with restricted hearing of right ear MSSA (methicillin susceptible Staphylococcus aureus) Obesity Rectal polyp Seizure Sleep apnea Systolic CHF Thyroid nodule Past Family History Family History Father Hypertension Stroke Sister Seizure Brother Seizure Mother Leukemia Past Surgical History Surgical History H/O sinus surgery H/O: hysterectomy Tubal ligation status Social History Smoking Status: Never smoker Hx Alcohol Use: No Hx Substance Use: No substance use type: does not use Physical Exam Vital Signs Last Vital Signs Temp 98.4 F 06/01/22 13:16 Pulse 93 H 06/01/22 13:16 Resp 20 06/01/22 13:16 BP 112/65 06/01/22 13:16 Pulse Ox 92 06/01/22 13:16 O2 Del Method 06/01/22 13:16 O2 Flow Rate 2 06/01/22 08:21 Testing Laboratory Results 06/01/22 06:17 06/01/22 06:17 Hemoglobin A1c 6.6 % (4.5-5.6) H 05/25/22 08:45 Urine Color Yellow 05/24/22 17:20 Urine Appearance Turbid (Clear) A 05/24/22 17:20 Urine pH 7.0 (4.5-7.5) 05/24/22 17:20 Ur Specific [place] 1.012 (1.000-1.030) 05/24/22 17:20 Urine Protein 1+ (Negative) H 05/24/22 17:20 Urine Glucose (UA) Negative (Negative) 05/24/22 17:20 Urine Ketones Negative (Negative) 05/24/22 17:20 Urine Nitrite Positive (Negative) A 05/24/22 17:20 Ur Leukocyte Esterase 3+ (Negative) H 05/24/22 17:20 Urine WBC (Auto) >30 /hpf (0-5) H 05/24/22 17:20 Urine RBC (Auto) 5-10 /hpf (0-4) H 05/24/22 17:20 U Hyaline Cast (Auto) 10-30 /lpf (0-5) H 05/24/22 17:20 U Epithel Cells (Auto) 20-30 /lpf (0-5) H 05/24/22 17:20 Urine Bacteria (Auto) 4+ (Negative) H 05/24/22 17:20 05/24/22 19:20 Aerobic Blood Culture - Final Blood No growth in Aerobic bottle after 5 days. Anaerobic Blood Culture - Final Escherichia coli 05/24/22 19:41 Aerobic Blood Culture - Final Blood Escherichia coli Anaerobic Blood Culture - Final 05/24/22 17:20 Urine Culture - Final Urine,Straight Cath Escherichia coli 06/01/22 06/01/22 11:50 06:54 POC Glucose 144 H 150 H Electrocardiogram Date: 05/27/22 Findings: + LBBB LAD
[2022-06-01] MEDS ORDERED: ePHEDrine sulfate 50 MG/ML AMP IV PRN (13:31)
[2022-06-01] MEDS ORDERED: ONDANSETRON INJ 2 MG/ML 2 ML VIAL IV PRN (13:31)
[2022-06-01] MEDS ORDERED: ATROPINE SULFATE 0.1 MG/ML 10ML SYR IV PRN (13:31)
[2022-06-01] MEDS ORDERED: ceFAZolin 2000MG 2,000 MG/15 ML SYR IV ONE (13:32)
[2022-06-01] MEDS ORDERED: LIDOCAINE 2% MPF LOCAL 5 ML VIAL INFIL ONE (13:39)
[2022-06-01] MEDS ORDERED: PROPOFOL IV EMULSION 10 MG/ML 20 ML VIAL IV ONE (13:41)
[2022-06-01] MEDS ORDERED: ONDANSETRON INJ 2 MG/ML 2 ML VIAL ONE (13:41)
[2022-06-01] MEDS ORDERED: DEXAMETHASONE SOD INJ 4 MG/ML VIAL ONE (13:41)
[2022-06-01] MEDS ORDERED: BUPIVACAINE/EPINEPHRINE 0.25% 1:200,000 30 ML VIAL ONE (14:09)
[2022-06-01] MEDS ORDERED: fentaNYL citrate 100 MCG/2 ML VIAL ONE (14:36)
--- NOTE | 2022-06-01 14:57 | Post Operative Brief Note ---
PG Immediate Post Op with CF Date of Surgery June 01, 2022 Pre & Post Diagnosis Operation Date: 06/01/22 12:10 Pre-Op Diagnosis: Bilateral lower leg hematomas Post-Op Diagnosis: Bilateral lower leg hematomas I identified the patient and participated in the time-out.: Yes Procedure Operation Date: 06/01/22 12:10 Actual Procedures p Bilateral Lower Extremity Hematoma Drainage x4, Excisional Debridement of Lower extremity wounds x4 (Bilateral) - Santos Jones DO Surgeon Santos Jones DO E Commerce Architect Andreia Brewer PA-C Estimated Blood Loss 50 Findings Consistent with Post-Op Diagnosis Specimens Specimen Description: None per surgeon Anesthesia Type MAC Complications none Disposition Disposition: Recovery Room
--- NOTE | 2022-06-01 15:08 | Operative Report ---
PG Post Operative Report Pre & Post Diagnosis Operation Date: 06/01/22 12:10 Pre-Op Diagnosis: Bilateral lower leg hematomas Post-Op Diagnosis: Bilateral lower leg hematomas I identified the patient and participated in the time-out.: Yes Procedure Operation Date: 06/01/22 12:10 Actual Procedures p Bilateral Lower Extremity Hematoma Drainage x4, Excisional Debridement of Lower extremity wounds x4 (Bilateral) - Santos Jones DO Surgeon Santos Jones DO Residential Real Estate Appraiser Andreia Brewer PA-C Estimated Blood Loss 50 Findings Consistent with Post-Op Diagnosis Specimens None Anesthesia Type MAC Complications none Disposition Disposition: Recovery Room Indications 62-year-old female with multiple bilateral lower extremity hematomas Description of Procedure The patient was brought to the operating room and underwent MAC anesthesia without issue. The bilateral legs were prepped and draped in the usual sterile fashion. Appropriate pre-operative antibiotics were administered. A timeout was called. The procedure was verified as drainage of bilateral lower extremity hematoma, excisional debridement of lower extremity wounds x4. Surgical, anesthesia and nursing teams agreed and the procedure was begun. There were 4 lower extremity hematomas with skin necrosis present. There was one large 8 cm x 5 cm hematoma on the right leg and 3 separate left leg hematomas measuring 3 cm x 2 cm, 5 cm x 5 cm and 1.5 cm x 2 cm. All hematomas were incised using a 15 blade scalpel and the old hematoma was evacuated. The necrotic skin overlying these wounds was then excised using a 15 blade scalpel and Metzenbaum scissors. The wounds were irrigated until clear. At this time hemostasis was achieved using pressure. Hemostasis was complete. Xeroform dressing, 4 x 4 gauze, ABD pads and Kerlix wrap were used to dress the bilateral lower legs. This represents drainage of lower extremity hematoma x4 and excisional debridement of skin and subcutaneous tissue of 71 cm. At this time the patient was awakened from anesthesia and extubated having remained stable throughout the entire case and transported to PACU in stable condition. The physician child life assistant was present and scrubbed for the entire case. She was essential in positioning, prepping and draping the patient, retraction and exposure, placement of the dressing. I attest to the content of the Intraoperative Record and any orders documented therein. Any exceptions are noted below.
--- NOTE | 2022-06-01 15:43 | Anesthesiology Progress Note ---
Date of Service June 01, 2022 Anesthesia Post Procedure Vital Signs Vital Signs: Temp Pulse Pulse Pulse Resp BP BP 06/01/22 15:25 97.5 F L 83 16 92/56 L 06/01/22 15:15 86 18 91/58 L 06/01/22 15:05 90 18 97/45 L 06/01/22 14:56 97.5 F L 86 86 18 104/59 L 06/01/22 13:16 98.4 F 93 H 20 112/65 06/01/22 07:34 06/01/22 08:21 98.2 F 84 16 93/60 L 06/01/22 00:02 05/31/22 23:01 98.1 F 91 H 20 123/89 Pulse Ox O2 Del Method O2 Flow Rate 06/01/22 15:25 100 Nasal Cannula 2 06/01/22 15:15 95 Nasal Cannula 4 06/01/22 15:05 100 Oxymask 5 06/01/22 14:56 100 Oxymask 5 06/01/22 13:16 92 Room Air 06/01/22 07:34 Nasal Cannula 2 06/01/22 08:21 99 Nasal Cannula 2 06/01/22 00:02 Nasal Cannula 2 05/31/22 23:01 97 Nasal Cannula 2.0 Transfer of Care Handoff Completed per policy Notes Mental Status: alert / awake / arousable and participated in evaluation Patient Amnestic to Procedure: Yes Nausea / Vomiting: adequately controlled Pain: adequately controlled Airway Patency, RR, SpO2: stable & adequate BP & HR: stable & adequate Hydration State: stable & adequate Anesthetic Complications: no major complications apparent and Pt Satisfied with anesthetic care
[2022-06-01] MEDS ORDERED: oxyCODONE HCL IR 5 MG TAB (IMMEDIATE RELEASE) PO PRN (15:48)
--- NOTE | 2022-06-01 18:27 | Hospitalist Progress Note ---
Date of Service June 01, 2022 Assessment & Plan (1) Pyelonephritis: Plan: 62yo female presenting with several days of increased lethargy, confusion. Prior COVID-19 infection end of February into March, no treatment required and d/c from ER UA w/ evidence for infection-> metabolic encephalopathy CTAP w/ ascending urinary infection, no stones-> pyleonephritis Blood and urine cultures consistent with Ecoli Switched from Cefepime (given hx pseudomonas) to ceftriaxone -n --> switched to Bactrim 05/28 to complete 14 day course, end date 06/07 did have large hemorrhagic bullae on legs 05/31 with bleeding resulting in acute blood anemia, taken to OR 06/01/22. PT/OT consulted, rec rehab at this point, however patient adamant about wanting to go home. * Of note, patient admit 2019 and at that time was determined patient did not lack understanding to make decisions for herself. Family working on getting POA but needing patient to sign/with witness outpatient and currently with infection not possible but daughter who is caregiver would consider rehab if needed (patient has [facility] in the past) but primary goal to get patient to be able to pivot safely as she reports Gilma almost fell [employer] and she was caught by her daughter but fears for falls at home if mobility not at least slightly improved * Recommending rehab at present but consider home while waiting for bed if able to make improvements with therapy inpatient * Updated daughter Yesenia afternoon 05/29 and if able to make improvements would consider home, possibly home health once recovered from surgery with confounding variable will be wound care (2) Bacteremia: Plan: 2nd to urinary source. of note, daughter who is caregiver states patient in power chair and does sit for extended periods of time in wet briefs despite being told about possibly getting UTI (3) Anemia: Plan: chronic, had been on PO iron in past, talks about IV in outpatient notes checked Iron panel as above given hgb in 8s, no active signs of bleeding B12 without deficiency hgb 8.7--> 9.6 after Venofer with bleeding 05/31/22 pt likely will have some acute blood loss anemia, (4) Acute metabolic encephalopathy: Plan: improved, at baseline cognition abx for UTI/pyelo as above (5) Elevated troponin: Plan: Patient with mildly elevated HS-troponin of 14.1. She denies chest pain, SOB (above baseline) or palpitations. No acute ischemic findings on EKG. Trop 14.1--> 20.7, suspect demand from infection, iron deficiency anemia as well per daughter-- iron studies added and iron 13, trans % sat low at 5 Venofer 200mg IV will complete 5 total 200mg while inpatient Hgb improved prior to blood loss labs to follow Continue ASA 81mg po daily held with bleeding and OR, will resume if bleeding stable Continue Atorvastatin 40mg po daily Continue Metoprolol 50mg po daily (6) Chronic respiratory failure with hypoxia and hypercapnia: Plan: Presently with no SOB. Adequate oxygenation on usual 2L Incentive spirometer added and encouraged but hasn't been using much CXR w/ some congestion, provided additional dose lasix with IV venofer 05/26, consider additional diuretic with venofer if needed but stable on 1L at rest and typically on 2L Continue albuterol HFA prn Added incentive spirometer (7) Venous stasis ulcers of both lower extremities: Plan: Improving. Dressings in place Continue wound care daily and as needed Wound RN consulted (of note, prior wound cx jul 2021 w/ the pseudomonas, sept w/ MRSA and has been following locally w/ wound center) (8) Seizure disorder: Plan: Chronic. Stable Continue keppra, topamax hx noncompliance but stated has been getting these at home Levels for both in normal range, no evidence for seizure activity (9) Diabetes mellitus, type II: Plan: Chronic, A1c w/ AM labs -- 6.6 but given anemia unreliable Hold home injectable Continue lantus 8u BID, ISS while inpatient BSGs acceptable and will monitor (10) Hypertension: Plan: Blood pressure borderline low at baseline, currently 125/78 though and improved Continue BB, spironolactone Lasix for now given congestive changes on CXR on admit, extra dose Lasix on 05/26 x1 Continue AHA diet (11) NICM (nonischemic cardiomyopathy): Plan: Compensated Continue Metoprolol 50mg, Spironolactone 12.5mg, ASA 81mg daily No CP reported (12) Asthma: Plan: Chronic. Stable -Albuterol PRN -Continue home O2 Admission and Anticipated Discharge Date Admission Date: May 24, 2022 Subjective pt is agreeable to surgical drainage to leg hematomas otherwise has acute blood loss anemia Review of Systems Review of Systems: Mild distress and fatigue no headache, no visual changes no speech or swallowing issues no chest pain, pressure or palpitations no shortness of breath, cough or wheezes no abdominal pain, nausea or vomiting, diarrhea or constipation no dysuria, hematuria or frequency no focal joint pain or swelling no back pain, CVA tenderness or radicular pain chronic venous stasis changes and some bullae full of blood on b/l LE no focal signs of weakness or numbness or altered sensation no complaints of anxiety or depression.. Physical Exam Physical Exam: The patient appeared well nourished and normally developed. Vital signs as documented. Head exam is normocephalic atraumatic Neck is without JVD, thyromegaly, or carotid bruits. Lungs are clear to auscultation, no focal loss of breath sounds Cardiac exam, Rhythm is regular.. No murmurs, rubs or gallops. Abdominal exam reveals normal bowel sounds, soft non tender, no masses Extremities are edematous, scaly and with chronic venous stasis changes Neurologic exam is alert and oriented, no focal loss of strength or sensation Skin is with significant chronic venous stasis changes to LE and large bullae one of which did bleed-> surgical drainage 06/01/22 Psychologically is without concerns for intellectual limitations Results & Data Results & Data ([facility]) Vital Signs (Past 12 Hours) Vital Signs Temp Pulse Pulse Pulse Resp BP BP 06/01/22 17:45 97.5 F L 88 16 114/72 06/01/22 16:40 97.7 F 74 14 97/67 L 06/01/22 16:15 97.7 F 82 16 92/62 L 06/01/22 15:45 97.5 F L 86 14 94/46 L 06/01/22 15:25 97.5 F L 83 16 92/56 L 06/01/22 15:15 86 18 91/58 L 06/01/22 15:05 90 18 97/45 L 06/01/22 14:56 97.5 F L 86 86 18 104/59 L 06/01/22 13:16 98.4 F 93 H 20 112/65 06/01/22 07:34 06/01/22 08:21 98.2 F 84 16 93/60 L Pulse Ox O2 Del Method O2 Flow Rate 06/01/22 17:45 100 Nasal Cannula 2 06/01/22 16:40 100 Nasal Cannula 2 06/01/22 16:15 100 Nasal Cannula 2 06/01/22 15:45 100 Nasal Cannula 2 06/01/22 15:25 100 Nasal Cannula 2 06/01/22 15:15 95 Nasal Cannula 4 06/01/22 15:05 100 Oxymask 5 06/01/22 14:56 100 Oxymask 5 06/01/22 13:16 92 Room Air 06/01/22 07:34 Nasal Cannula 2 06/01/22 08:21 99 Nasal Cannula 2 PG Care Time/CCT Total # of Minutes Spent Total Time Spent with Patient: Total time spent is greater than 50% in coordination of care (as documented) at patient's floor/unit and/or counseling patient: Coding Level of Care Code 45076 Subseq Hosp Care Lvl 3 Diagnoses Pyelonephritis N12 Bacteremia R78.81 Anemia D64.9 Acute metabolic encephalopathy G93.41 Elevated troponin R77.8 Chronic respiratory failure with hypoxia and hypercapnia J96.11; J96.12 Venous stasis ulcers of both lower extremities I83.019; I83.029; L97.919; L97.929 Seizure disorder G40.909 Diabetes mellitus, type II E11.9 Diabetes mellitus fci insulin use: without fci use Diabetes mellitus complication status: without complication Hypertension I10 Hypertension type: essential hypertension NICM (nonischemic cardiomyopathy) I42.8 Asthma J45.909 Asthma severity: unspecified severity Asthma persistence: unspecified Asthma complication type: uncomplicated (1) Diabetes mellitus, type II Diabetes mellitus intermission coordinator insulin use: without fci use Diabetes mellitus complication status: without complication Qualified Code(s): E11.9 - Type 2 diabetes mellitus without complications (2) Hypertension Hypertension type: essential hypertension Qualified Code(s): I10 - Essential (primary) hypertension (3) Asthma Asthma severity: unspecified severity Asthma persistence: unspecified Asthma complication type: uncomplicated Qualified Code(s): J45.909 - Unspecified asthma, uncomplicated
[2022-06-01] MEDS: ATORVASTATIN 40 MG TAB PO SCH (20:47)
[2022-06-02] MEDS: METOPROLOL SUCC 50MG EXT REL TAB PO SCH (09:03)
[2022-06-02] MEDS: TOPIRAMATE 100 MG TAB PO SCH ×2 (09:04→21:47)
[2022-06-02] MEDS: SPIRONOLACTONE 12.5 MG TAB PO SCH (09:04)
[2022-06-02] MEDS: FUROSEMIDE 40 MG TAB PO SCH (09:04)
[2022-06-02] MEDS: levETIRAcetam 500 MG TAB PO SCH ×2 (09:04→21:48)
[2022-06-02] MEDS: SULFAMETHOXAZOLE/TRIMETHOPRIM DS 800/160MG TAB PO SCH (09:04)
[2022-06-02] MEDS: LANTUS PER UNIT CHARGE SQ SCH ×2 (09:05→21:56)
[2022-06-02] MEDS: NYSTATIN POWDER 15GM BTL EXT SCH ×2 (09:05→21:57)
[2022-06-02] MEDS: INSULIN ASPART PER UNIT SC SCH ×4 (09:05→21:56)
[2022-06-02] MEDS: DOCUSATE SODIUM/SENNA 50/8.6MG TAB PO SCH (09:05)
[2022-06-02] MEDS: ACETAMINOPHEN 325 MG TAB PO PRN (09:11)
[2022-06-02 10:33] LABS: BUN Creatinine Ratio 16.3 (10-20); Calcium 8.7 mg/dl (8.5-10.1); Creatinine Clr Calc Pharmacy 38.9 ml/min; Est GFR (African American) 41.2 ml/min; Est GFR (Non-African American) 35.6 ml/min; Magnesium 2.2 mg/dl (1.7-2.4); Potassium 3.8 mmol/L (3.5-5.1)
[2022-06-02 11:49] LABS: Hematocrit (blood only) 26.3 % (34.1-44.9); Hemoglobin 7.9 g/dl (12.0-16.0); Mean Corpuscular Hemoglobin 25.9 pg (25.0-34.0); Mean Corpuscular Volume 86.2 fL (80.0-100.0); Platelet Count 358 K/uL (130-400); RDW Coefficient of Variation 16.2 % (11.5-14.5); RDW Standard Deviation 47.4 fL (36.4-46.3); Red Blood Count 3.05 M/uL (3.93-5.22); White Blood Count 10.92 K/ul (4.8-10.8)
--- NOTE | 2022-06-02 11:51 | Surgery Progress Note ---
Date of Service June 02, 2022 Assessment & Plan (1) Venous stasis ulcers of both lower extremities: Plan: POD#1 bilateral LE Hematoma Drainage x4, Excisional Debridement of LE wounds x4 Labs pending Dressings change along with wound care. Continue daily dressing changes with xeroform, ABD gauze, and kerlex wrapping Patient should continue with follow up in the wound center upon discharge We will sign off, please call with any questions/concerns Admission and Anticipated Discharge Date Admission Date: May 24, 2022 Supervising Physician Co-Signing Physician Notes I personally saw and evaluated the patient with Andreia Brewer PA-C and agree with the assessment and plan. 62-year-old female postoperative day 1 debridement of lower extremity venous stasis ulcers and drainage of hematoma x4 Dressings changed at bedside with wound care nursing, minimal necrotic tissue remains Would continue a once daily Xeroform dressing covered by gauze or ABD pads and Kerlix wrap She can follow-up in the wound clinic once she is discharged from the hospital but there is no need to keep her in the hospital from a surgical standpoint Surgery will sign off at this time, please call with any questions or concerns Subjective Patient sitting up in chair. Offers no complaints. Painful with dressing change Physical Exam Physical Exam: awake, sitting up in chair. no distress Skin: bilateral lower extremity wounds stable, mild/moderate bloody drainage on dressings, no active bleeding Results & Data ([facility]) Vital Signs (Past 12 Hours) Vital Signs Temp Pulse Resp BP BP Pulse Ox O2 Del Method 06/02/22 11:36 36.7 C 106 H 18 114/75 2 L Nasal Cannula 06/02/22 09:00 Nasal Cannula 06/02/22 08:16 36.6 C 86 16 97/65 L 100 Nasal Cannula 06/02/22 08:09 36.6 C 86 16 95/66 L 98 Nasal Cannula 06/02/22 01:14 Nasal Cannula O2 Flow Rate 06/02/22 11:36 06/02/22 09:00 2 06/02/22 08:16 2 06/02/22 08:09 2 06/02/22 01:14 2 PG Care Time/CCT Total # of Minutes Spent Total Time Spent with Patient: Total time spent is greater than 50% in coordination of care (as documented) at patient's floor/unit and/or counseling patient: Coding Level of Care Code None Diagnoses Venous stasis ulcers of both lower extremities I83.019; I83.029; L97.919; L97.928
[2022-06-02] MEDS: cefTRIAXone SODIUM 2,000 MG in DEXTROSE 5% 50 ML IV SCH (13:12)
--- NOTE | 2022-06-02 17:00 | Hospitalist Progress Note ---
Date of Service June 02, 2022 Assessment & Plan (1) Pyelonephritis: Plan: Bacteremic pyelonephritisgiven acute kidney injury switch to Rocephin; surveillance cultures (2) Bacteremia: Plan: 2nd to urinary source. of note, daughter who is caregiver states patient in power chair and does sit for extended periods of time in wet briefs despite being told about possibly getting UTI (3) Anemia: Plan: Seems more chronic disease but may have some iron deficiency, received Venofernot unreasonable; currently some acute blood loss anemiafollow (4) Acute metabolic encephalopathy: Plan: improved, at baseline cognition abx for UTI/pyelo as above (5) Elevated troponin: Plan: At present nothing to suggest ACS Continue ASA 81mg po daily held with bleeding and OR, will resume if bleeding stable Continue Atorvastatin 40mg po daily Continue Metoprolol 50mg po daily (6) Chronic respiratory failure with hypoxia and hypercapnia: Plan: Appears at baseline 2 L oxygenfollow (7) Venous stasis ulcers of both lower extremities: Plan: S/p hematoma and drainage, debridementsurgery following; appreciate (8) Seizure disorder: Plan: Chronic. Stable Continue keppra, topamax hx noncompliance but stated has been getting these at home Levels for both in normal range, no evidence for seizure activity (9) Diabetes mellitus, type II: Plan: Chronic, A1c w/ AM labs -- 6.6 but given anemia unreliable Hold home injectable Continue lantus 8u BID, ISS while inpatient BSGs acceptable and will monitor (10) Hypertension: Plan: Blood pressure borderline low at baseline; not symptomaticno change at present (11) NICM (nonischemic cardiomyopathy): Plan: Compensated Continue Metoprolol 50mg, Spironolactone 12.5mg, ASA on hold (12) Asthma: Plan: Chronic. Stable -Albuterol PRN -Continue home O2 (13) ADRYAN (acute kidney injury): Plan: Bactrim stopped, observe for now Plan Mild leukocytosis notedno additional action Admission and Anticipated Discharge Date Admission Date: May 24, 2022 Subjective Follow-up of original presentation with mental status changesstatus post debr idement of lower leg venous ulcer/hematoma; no complaints as such Physical Exam Physical Exam: Constitutional and general: No acute distress, looks biologic age Head and face: No puffiness, atraumatic Eyes: No scleral icterus, extraocular movements normal Neck: Supple, no JVD Musculoskeletal: No acute joint swelling, no bony abnormalities Skin/dermatologic/integument: No rash, no purpura Hematologic and lymphatic: pallor +, no petechia Gastrointestinal/abdomen: Nondistended, soft, nonacute Neurologic: Cranial nerves intact, nonfocal Cardiovascular: Heart rhythm regular, no rub, no murmur, no gallop Respiratory: Chest movements equal, no use of accessory muscles, no adventitious sounds Extremities: Edema with rapid movement Results & Data Results & Data ([facility]) Vital Signs (Past 12 Hours) Vital Signs Temp Pulse Resp BP BP Pulse Ox O2 Del Method 06/02/22 15:45 36.8 C 98 H 16 109/77 98 Nasal Cannula 06/02/22 12:04 36.3 C L 110 H 20 102/67 100 Nasal Cannula 06/02/22 11:36 36.7 C 106 H 18 114/75 2 L Nasal Cannula 06/02/22 09:00 Nasal Cannula 06/02/22 08:16 36.6 C 86 16 97/65 L 100 Nasal Cannula 06/02/22 08:09 36.6 C 86 16 95/66 L 98 Nasal Cannula O2 Flow Rate 06/02/22 15:45 2 06/02/22 12:04 2 06/02/22 11:36 06/02/22 09:00 2 06/02/22 08:16 2 06/02/22 08:09 2 Laboratory Results Laboratory Results - last 24 hr 06/01/22 06/01/22 06/02/22 16:54 20:25 07:55 WBC RBC Hgb Hct MCV MCH MCHC RDW Std Deviation RDW Coeff of Ewa Plt Count MPV Absolute Nucleated RBC Nucleated RBC % (auto) Platelet Estimate Sodium Potassium Chloride Carbon Dioxide Anion Gap BUN Creatinine Est Cr Clr Drug Dosing Est GFR ( Amer) Est GFR (Non-Af Amer) BUN/Creatinine Ratio Glucose POC Glucose 137 H 167 H 130 H Calcium Magnesium 06/02/22 06/02/22 06/02/22 09:49 09:49 11:26 WBC Cancelled 10.92 H RBC Cancelled 3.05 L Hgb Cancelled 7.9 L Hct Cancelled 26.3 L MCV Cancelled 86.2 MCH Cancelled 25.9 MCHC Cancelled 30.0 L RDW Std Deviation Cancelled 47.4 H RDW Coeff of Ewa Cancelled 16.2 H Plt Count Cancelled 358 MPV Cancelled 10.0 Absolute Nucleated RBC Cancelled Nucleated RBC % (auto) Cancelled Platelet Estimate Cancelled Sodium 135 L Potassium 3.8 Chloride 97 L Carbon Dioxide 30 Anion Gap 8 BUN 25 H Creatinine 1.53 H Est Cr Clr Drug Dosing 38.9 Est GFR ( Amer) 41.2 Est GFR (Non-Af Amer) 35.6 BUN/Creatinine Ratio 16.3 Glucose 186 H POC Glucose Calcium 8.7 Magnesium 2.2 06/02/22 11:51 WBC RBC Hgb Hct MCV MCH MCHC RDW Std Deviation RDW Coeff of Ewa Plt Count MPV Absolute Nucleated RBC Nucleated RBC % (auto) Platelet Estimate Sodium Potassium Chloride Carbon Dioxide Anion Gap BUN Creatinine Est Cr Clr Drug Dosing Est GFR ( Amer) Est GFR (Non-Af Amer) BUN/Creatinine Ratio Glucose POC Glucose 206 H Calcium Magnesium PG Care Time/CCT Total # of Minutes Spent Total Time Spent with Patient: Total time spent is greater than 50% in coordination of care (as documented) at patient's floor/unit and/or counseling patient: Coding Level of Care Code 35243 Subseq Hosp Care Lvl 2 Diagnoses Pyelonephritis N12 Bacteremia R78.81 Anemia D64.9 Acute metabolic encephalopathy G93.41 Elevated troponin R77.8 Chronic respiratory failure with hypoxia and hypercapnia J96.11; J96.12 Venous stasis ulcers of both lower extremities I83.019; I83.029; L97.919; L97.929 Seizure disorder G40.909 Diabetes mellitus, type II E11.9 Diabetes mellitus mcc insulin use: without property adjuster use Diabetes mellitus complication status: without complication Hypertension I10 Hypertension type: essential hypertension NICM (nonischemic cardiomyopathy) I42.8 Asthma J45.909 Asthma severity: unspecified severity Asthma persistence: unspecified Asthma complication type: uncomplicated ADRYAN (acute kidney injury) N17.9 (1) Diabetes mellitus, type II Diabetes mellitus mcc insulin use: without mcc use Diabetes me llitus complication status: without complication Qualified Code(s): E11.9 - Type 2 diabetes mellitus without complications (2) Hypertension Hypertension type: essential hypertension Qualified Code(s): I10 - Essential (primary) hypertension (3) Asthma Asthma severity: unspecified severity Asthma persistence: unspecified Asthma complication type: uncomplicated Qualified Code(s): J45.909 - Unspecified asthma, uncomplicated
[2022-06-02] MEDS: ATORVASTATIN 40 MG TAB PO SCH (21:48)
[2022-06-03 08:19] LABS: Basophils # (auto) 0.07 K/uL (0-0.2); Basophils % (auto) 1.2 %; Eosinophils # (auto) 0.26 K/uL (0-0.50); Eosinophils % (auto) 4.4 %; Hematocrit (blood only) 23.4 % (34.1-44.9); Immature Granulocytes # (auto) 0.17 K/uL (0.00-0.02); Immature Granulocytes % (auto) 2.9 %; Lymphocytes # (auto) 1.14 K/uL (1.2-3.4); Lymphocytes % (auto) 19.4 %; Mean Corpuscular Hemoglobin 26.4 pg (25.0-34.0); Mean Corpuscular Hgb Conc 29.9 g/dL (32.0-36.0); Mean Corpuscular Volume 88.3 fL (80.0-100.0); Mean Platelet Volume 10.1 fL (9.4-12.3); Monocytes # (auto) 0.52 K/uL (0.24-0.82); Monocytes % (auto) 8.8 %; Neutrophils # (auto) 3.73 K/uL (1.4-6.5); Neutrophils % (auto) 63.3 %; Platelet Count 268 K/uL (130-400); RDW Coefficient of Variation 16.6 % (11.5-14.5); Red Blood Count 2.65 M/uL (3.93-5.22); White Blood Count 5.89 K/ul (4.8-10.8)
[2022-06-03 08:35] LABS: Anisocytosis Present
[2022-06-03 09:11] LABS: BUN Creatinine Ratio 17.5 (10-20); Bilirubin,Total 0.3 mg/dl (0.2-1.0); Calcium 8.3 mg/dl (8.5-10.1); Creatinine Clr Calc Pharmacy 43.4 ml/min; Est GFR (African American) 47.1 ml/min; Est GFR (Non-African American) 40.7 ml/min; Magnesium 2.2 mg/dl (1.7-2.4); Phosphorus 3.7 mg/dl (2.5-4.9); Potassium 3.6 mmol/L (3.5-5.1)
[2022-06-03] MEDS: INSULIN ASPART PER UNIT SC SCH ×4 (09:14→20:58)
[2022-06-03] MEDS: METOPROLOL SUCC 50MG EXT REL TAB PO SCH (09:14)
[2022-06-03] MEDS: TOPIRAMATE 100 MG TAB PO SCH ×2 (09:14→20:39)
[2022-06-03] MEDS: levETIRAcetam 500 MG TAB PO SCH ×2 (09:14→20:39)
[2022-06-03] MEDS: SPIRONOLACTONE 12.5 MG TAB PO SCH (09:14)
[2022-06-03] MEDS: cefTRIAXone SODIUM 2,000 MG in DEXTROSE 5% 50 ML IV SCH (09:14)
[2022-06-03] MEDS: FUROSEMIDE 40 MG TAB PO SCH (09:14)
[2022-06-03] MEDS: LANTUS PER UNIT CHARGE SQ SCH ×2 (09:14→20:59)
[2022-06-03] MEDS: NYSTATIN POWDER 15GM BTL EXT SCH ×2 (09:15→20:34)
[2022-06-03] MEDS: DOCUSATE SODIUM/SENNA 50/8.6MG TAB PO SCH (09:15)
[2022-06-03] MEDS ORDERED: PANTOprazole 40 MG in SYRINGE 0 ML IV ONE (14:15)
[2022-06-03] MEDS ORDERED: SODIUM CHLORIDE 0.9% 250 ML IV PRN (17:01)
--- NOTE | 2022-06-03 17:07 | Hospitalist Progress Note ---
Date of Service June 03, 2022 Assessment & Plan (1) GI bleed: Plan: Likely; she declines endoscopy categorically; IV PPI; consented for blood and family consent (son) and also over the phone concurrently; repeat hemoglobin lower2 units transfusion; will keep n.p.o. after midnight in case confirmed bleeding or ongoing family will come by to convince Eduarda not consulted since she is refusing (2) Pyelonephritis: Plan: Bacteremic pyelonephritisgiven acute kidney injury switch to Rocephin; surveillance cultures (3) Bacteremia: Plan: 2nd to urinary source. of note, daughter who is caregiver states patient in power chair and does sit for extended periods of time in wet briefs despite being told about possibly getting UTI (4) Anemia: Plan: Superimposed acute blood loss anemiasee #1 (5) Acute metabolic encephalopathy: Plan: improved, at baseline cognition abx for UTI/pyelo as above (6) Elevated troponin: Plan: At present nothing to suggest ACS Continue ASA 81mg po daily held with bleeding and OR, will resume if bleeding stable Continue Atorvastatin 40mg po daily Continue Metoprolol 50mg po daily (7) Chronic respiratory failure with hypoxia and hypercapnia: Plan: Appears at baseline 2 L oxygenfollow (8) Venous stasis ulcers of both lower extremities: Plan: S/p hematoma and drainage, debridementsurgery following; appreciate (9) Seizure disorder: Plan: Chronic. Stable Continue keppra, topamax hx noncompliance but stated has been getting these at home Levels for both in normal range, no evidence for seizure activity (10) Diabetes mellitus, type II: Plan: Chronic, A1c w/ AM labs -- 6.6 but given anemia unreliable Hold home injectable Continue lantus 8u BID, ISS while inpatient BSGs acceptable and will monitornoted trend today 06/03; no change while ongoing #1 issue (11) Hypertension: Plan: Blood pressure borderline low at baseline; not symptomaticno change at present (12) NICM (nonischemic cardiomyopathy): Plan: Compensated Continue Metoprolol 50mg, Spironolactone 12.5mg, ASA on hold (13) Asthma: Plan: Chronic. Stable -Albuterol PRN -Continue home O2 (14) ADRYAN (acute kidney injury): Plan: Bactrim stopped,; better, observe for now Admission and Anticipated Discharge Date Admission Date: May 24, 2022 Subjective Follow-up of original presentation with mental status changeswhat appears to be melanotic stool today with declining hemoglobin; she has no specific complaints Physical Exam Physical Exam: Constitutional and general: No acute distress, looks biologic age Head and face: No puffiness, atraumatic Eyes: No scleral icterus, extraocular movements normal Neck: Supple, no JVD Musculoskeletal: No acute joint swelling, no bony abnormalities Skin/dermatologic/integument: No rash, no purpura Hematologic and lymphatic: pallor +, no petechia Gastrointestinal/abdomen: Nondistended, soft, nonacute Neurologic: Cranial nerves intact, nonfocal Cardiovascular: Heart rhythm regular, no rub, no murmur, no gallop Respiratory: Chest movements equal, no use of accessory muscles, no adventitious sounds Extremities: Edema with rapid movement Results & Data Results & Data ([facility]) Vital Signs (Past 12 Hours) Vital Signs Temp Pulse Resp BP Pulse Ox O2 Del Method O2 Flow Rate 06/03/22 16:19 36.6 C 102 H 16 92/57 L 99 2 06/03/22 08:00 Nasal Cannula 2 06/03/22 09:13 36.7 C 89 16 104/67 100 2 Laboratory Results Laboratory Results - last 24 hr 06/02/22 06/03/22 06/03/22 20:44 07:49 07:49 WBC 5.89 RBC 2.65 L Hgb 7.0 L Hct 23.4 L MCV 88.3 MCH 26.4 MCHC 29.9 L RDW Std Deviation 49.0 H RDW Coeff of Ewa 16.6 H Plt Count 268 MPV 10.1 Immature Gran % (Auto) 2.9 Neut % (Auto) 63.3 Lymph % (Auto) 19.4 [place] % (Auto) 8.8 Eos % (Auto) 4.4 Baso % (Auto) 1.2 Neut # (Auto) 3.73 Lymph # (Auto) 1.14 L [place] # (Auto) 0.52 Eos # (Auto) 0.26 Baso # (Auto) 0.07 Immature Gran # (Auto) 0.17 H Anisocytosis Present Sodium 136 Potassium 3.6 Chloride 100 Carbon Dioxide 32 Anion Gap 4 BUN 24 H Creatinine 1.37 H Est Cr Clr Drug Dosing 43.4 Est GFR ( Amer) 47.1 Est GFR (Non-Af Amer) 40.7 BUN/Creatinine Ratio 17.5 Glucose 120 H POC Glucose 173 H Fasting Glucose 120 H Calcium 8.3 L Phosphorus 3.7 Magnesium 2.2 Total Bilirubin 0.3 AST 21 ALT 12 Alkaline Phosphatase 101 Total Protein 6.0 Albumin 3.0 L Globulin 3.0 Albumin/Globulin Ratio 1.0 06/03/22 06/03/22 06/03/22 08:10 11:53 16:22 WBC RBC Hgb 6.9 L* Hct MCV MCH MCHC RDW Std Deviation RDW Coeff of Ewa Plt Count MPV Immature Gran % (Auto) Neut % (Auto) Lymph % (Auto) [place] % (Auto) Eos % (Auto) Baso % (Auto) Neut # (Auto) Lymph # (Auto) [place] # (Auto) Eos # (Auto) Baso # (Auto) Immature Gran # (Auto) Anisocytosis Sodium Potassium Chloride Carbon Dioxide Anion Gap BUN Creatinine Est Cr Clr Drug Dosing Est GFR ( Amer) Est GFR (Non-Af Amer) BUN/Creatinine Ratio Glucose POC Glucose 136 H 226 H Fasting Glucose Calcium Phosphorus Magnesium Total Bilirubin AST ALT Alkaline Phosphatase Total Protein Albumin Globulin Albumin/Globulin Ratio 06/03/22 16:42 WBC RBC Hgb Hct MCV MCH MCHC RDW Std Deviation RDW Coeff of Ewa Plt Count MPV Immature Gran % (Auto) Neut % (Auto) Lymph % (Auto) [place] % (Auto) Eos % (Auto) Baso % (Auto) Neut # (Auto) Lymph # (Auto) [place] # (Auto) Eos # (Auto) Baso # (Auto) Immature Gran # (Auto) Anisocytosis Sodium Potassium Chloride Carbon Dioxide Anion Gap BUN Creatinine Est Cr Clr Drug Dosing Est GFR ( Amer) Est GFR (Non-Af Amer) BUN/Creatinine Ratio Glucose POC Glucose 244 H Fasting Glucose Calcium Phosphorus Magnesium Total Bilirubin AST ALT Alkaline Phosphatase Total Protein Albumin Globulin Albumin/Globulin Ratio PG Care Time/CCT Total # of Minutes Spent Total Time Spent with Patient: Total time spent is greater than 50% in coordination of care (as documented) at patient's floor/unit and/or counseling patient: Coding Level of Care Code 06955 Subseq Hosp Care Lvl 2 Diagnoses GI bleed K92.2 Pyelonephritis N12 Bacteremia R78.81 Anemia D64.9 Acute metabolic encephalopathy G93.41 Elevated troponin R77.8 Chronic respiratory failure with hypoxia and hypercapnia J96.11; J96.12 Venous stasis ulcers of both lower extremities I83.019; I83.029; L97.919; L97.929 Seizure disorder G40.909 Diabetes mellitus, type II E11.9 Diabetes mellitus complication status: without complication Diabetes mellitus care home insulin use: without care home use Hypertension I10 Hypertension type: essential hypertension NICM (nonischemic cardiomyopathy) I42.8 Asthma J45.909 Asthma complication type: uncomplicated Asthma persistence: unspecified Asthma severity: unspecified severity DARYAN (acute kidney injury) N17.9 (1) Diabetes mellitus, type II Diabetes mellitus complication status: without complication Diabetes mellitus intermodal dispatcher insulin use: without care home use Qualified Code(s): E11.9 - Type 2 diabetes mellitus without complications (2) Hypertension Hypertension type: essential hypertension Qualified Code(s): I10 - Essential (primary) hypertension (3) Asthma Asthma complication type: uncomplicated Asthma persistence: unspecified Asthma severity: unspecified severity Qualified Code(s): J45.909 - Unspecified asthma, uncomplicated
[2022-06-03] MEDS: PANTOprazole 40 MG in SYRINGE 0 ML IV SCH (20:34)
[2022-06-03] MEDS: ATORVASTATIN 40 MG TAB PO SCH (20:39)
[2022-06-04 02:46] LABS: Hematocrit (blood only) 30.3 % (34.1-44.9); Hemoglobin 9.3 g/dl (12.0-16.0)
[2022-06-04 03:17] LABS: BUN Creatinine Ratio 16.5 (10-20); Bilirubin,Total 0.8 mg/dl (0.2-1.0); Calcium 8.2 mg/dl (8.5-10.1); Creatinine Clr Calc Pharmacy 51.7 ml/min; Est GFR (African American) 58.2 ml/min; Est GFR (Non-African American) 50.2 ml/min; Magnesium 2.1 mg/dl (1.7-2.4); Potassium 3.7 mmol/L (3.5-5.1)
[2022-06-04] MEDS: INSULIN ASPART PER UNIT SC SCH ×4 (10:05→21:08)
[2022-06-04] MEDS: LANTUS PER UNIT CHARGE SQ SCH ×2 (10:15→21:08)
[2022-06-04] MEDS: FUROSEMIDE 40 MG TAB PO SCH (10:15)
[2022-06-04] MEDS: METOPROLOL SUCC 50MG EXT REL TAB PO SCH (10:15)
[2022-06-04] MEDS: TOPIRAMATE 100 MG TAB PO SCH ×2 (10:18→21:11)
[2022-06-04] MEDS: levETIRAcetam 500 MG TAB PO SCH ×2 (10:18→21:11)
[2022-06-04] MEDS: NYSTATIN POWDER 15GM BTL EXT SCH ×2 (10:18→21:11)
[2022-06-04] MEDS: PANTOprazole 40 MG in SYRINGE 0 ML IV SCH ×2 (10:18→21:12)
[2022-06-04] MEDS: DOCUSATE SODIUM/SENNA 50/8.6MG TAB PO SCH (10:23)
[2022-06-04] MEDS: SPIRONOLACTONE 12.5 MG TAB PO SCH (10:23)
[2022-06-04] MEDS: cefTRIAXone SODIUM 2,000 MG in DEXTROSE 5% 50 ML IV SCH (10:26)
--- NOTE | 2022-06-04 15:54 | Hospitalist Progress Note ---
Date of Service June 04, 2022 Assessment & Plan (1) GI bleed: Plan: Possible but not confirmed; PPI and observe; she does not want endoscopy (some question of decisional capacity but to me she was answering questions appropriately (2) Pyelonephritis: Plan: Bacteremic pyelonephritisgiven acute kidney injury switch to Rocephin; surveillance cultures negative to date (3) Bacteremia: Plan: 2nd to urinary source. of note, daughter who is caregiver states patient in power chair and does sit for extended periods of time in wet briefs despite being told about possibly getting UTI (4) Anemia: Plan: Superimposed acute blood loss anemia that could be postopsee #1 (5) Acute metabolic encephalopathy: Plan: improved, at baseline cognition abx for UTI/pyelo as above (6) Elevated troponin: Plan: At present nothing to suggest ACS Continue ASA 81mg po daily held with bleeding and OR, will resume if bleeding stable Continue Atorvastatin 40mg po daily Continue Metoprolol 50mg po daily (7) Chronic respiratory failure with hypoxia and hypercapnia: Plan: Appears at baseline 2 L oxygenfollow (8) Venous stasis ulcers of both lower extremities: Plan: S/p hematoma and drainage, debridementsurgery following; appreciate (9) Seizure disorder: Plan: Chronic. Stable Continue keppra, topamax hx noncompliance but stated has been getting these at home Levels for both in normal range, no evidence for seizure activity (10) Diabetes mellitus, type II: Plan: Chronic, A1c w/ AM labs -- 6.6 but given anemia unreliable Hold home injectable Continue lantus 8u BID, ISS while inpatient BSGs acceptable and will monitornoted trend today 06/03; no change today (11) Hypertension: Plan: Blood pressure borderline low at baseline; not symptomaticno change at present (12) NICM (nonischemic cardiomyopathy): Plan: Compensated Continue Metoprolol 50mg, Spironolactone 12.5mg, ASA on hold (13) Asthma: Plan: Chronic. Stable -Albuterol PRN -Continue home O2 (14) ADRYAN (acute kidney injury): Plan: Bactrim stopped,; improvedobserve Admission and Anticipated Discharge Date Admission Date: May 24, 2022 Subjective Follow-up of original presentation with mental status changeswhat appears to be melanotic stool on 06/03 -not confirmed; no more known bleeding Physical Exam Physical Exam: Constitutional and general: No acute distress, looks biologic age Head and face: No puffiness, atraumatic Eyes: No scleral icterus, extraocular movements normal Neck: Supple, no JVD Musculoskeletal: No acute joint swelling, no bony abnormalities Skin/dermatologic/integument: No rash, no purpura Hematologic and lymphatic: pallor +, no petechia Gastrointestinal/abdomen: Nondistended, soft, nonacute Neurologic: Cranial nerves intact, nonfocal Cardiovascular: Heart rhythm regular, no rub, no murmur, no gallop Respiratory: Chest movements equal, no use of accessory muscles, no adventitious sounds Extremities: Edema with wrapped wounds Results & Data Results & Data ([facility]) Vital Signs (Past 12 Hours) Vital Signs Temp Pulse Pulse Resp BP Pulse Ox O2 Del Method 06/04/22 14:43 36.4 C L 66 16 102/68 98 Nasal Cannula 06/04/22 12:00 Nasal Cannula 06/04/22 07:22 36.6 C 79 16 117/78 100 Nasal Cannula O2 Flow Rate 06/04/22 14:43 2 06/04/22 12:00 2 06/04/22 07:22 2 Laboratory Results Laboratory Results - last 24 hr 06/03/22 06/03/22 06/03/22 16:22 16:42 17:44 Hgb 6.9 L* Hct Sodium Potassium Chloride Carbon Dioxide Anion Gap BUN Creatinine Est Cr Clr Drug Dosing Est GFR ( Amer) Est GFR (Non-Af Amer) BUN/Creatinine Ratio Glucose POC Glucose 244 H Fasting Glucose Calcium Phosphorus Magnesium Total Bilirubin AST ALT Alkaline Phosphatase Total Protein Albumin Globulin Albumin/Globulin Ratio Blood Type B Positive Antibody Screen NEGATIVE Crossmatch See Detail 06/03/22 06/04/22 06/04/22 20:30 02:35 02:35 Hgb 9.3 L Hct 30.3 L Sodium 136 Potassium 3.7 Chloride 101 Carbon Dioxide 29 Anion Gap 6 BUN 19 Creatinine 1.15 Est Cr Clr Drug Dosing 51.7 Est GFR ( Amer) 58.2 Est GFR (Non-Af Amer) 50.2 BUN/Creatinine Ratio 16.5 Glucose 99 POC Glucose 125 H Fasting Glucose 99 Calcium 8.2 L Phosphorus 3.0 Magnesium 2.1 Total Bilirubin 0.8 D AST 22 ALT 12 Alkaline Phosphatase 101 Total Protein 6.0 Albumin 3.0 L Globulin 3.0 Albumin/Globulin Ratio 1.0 Blood Type Antibody Screen Crossmatch 06/04/22 06/04/22 07:57 12:09 Hgb Hct Sodium Potassium Chloride Carbon Dioxide Anion Gap BUN Creatinine Est Cr Clr Drug Dosing Est GFR ( Amer) Est GFR (Non-Af Amer) BUN/Creatinine Ratio Glucose POC Glucose 98 95 Fasting Glucose Calcium Phosphorus Magnesium Total Bilirubin AST ALT Alkaline Phosphatase Total Protein Albumin Globulin Albumin/Globulin Ratio Blood Type Antibody Screen Crossmatch PG Care Time/CCT Total # of Minutes Spent Total Time Spent with Patient: Total time spent is greater than 50% in coordination of care (as documented) at patient's floor/unit and/or counseling patient: Coding Level of Care Code 76094 Subseq Hosp Care Lvl 2 Diagnoses GI bleed K92.2 Pyelonephritis N12 Bacteremia R78.81 Anemia D64.9 Acute metabolic encephalopathy G93.41 Elevated troponin R77.8 Chronic respiratory failure with hypoxia and hypercapnia J96.11; J96.12 Venous stasis ulcers of both lower extremities I83.019; I83.029; L97.919; L97.929 Seizure disorder G40.909 Diabetes mellitus, type II E11.9 Diabetes mellitus extermination supervisor insulin use: without extermination supervisor use Diabetes mellitus complication status: without complication Hypertension I10 Hypertension type: essential hypertension NICM (nonischemic cardiomyopathy) I42.8 Asthma J45.909 Asthma severity: unspecified severity Asthma persistence: unspecified Asthma complication type: uncomplicated ADRYAN (acute kidney injury) N17.9 (1) Diabetes mellitus, type II Diabetes mellitus extermination supervisor insulin use: without mcc use Diabetes mellitus complication status: without complication Qualified Code(s): E11.9 - Type 2 diabetes mellitus without complications (2) Hypertension Hypertension type: essential hypertension Qualified Code(s): I10 - Essential (primary) hypertension (3) Asthma Asthma severity: unspecified severity Asthma persistence: unspecified Asthma complication type: uncomplicated Qualified Code(s): J45.909 - Unspecified asthma, uncomplicated
[2022-06-04] MEDS: ATORVASTATIN 40 MG TAB PO SCH (21:11)
[2022-06-05 07:05] LABS: Basophils # (auto) 0.07 K/uL (0-0.2); Basophils % (auto) 1.2 %; Eosinophils # (auto) 0.29 K/uL (0-0.50); Eosinophils % (auto) 5.1 %; Hematocrit (blood only) 32.4 % (34.1-44.9); Immature Granulocytes # (auto) 0.07 K/uL (0.00-0.02); Immature Granulocytes % (auto) 1.2 %; Lymphocytes # (auto) 0.95 K/uL (1.2-3.4); Lymphocytes % (auto) 16.6 %; Mean Corpuscular Hemoglobin 26.9 pg (25.0-34.0); Mean Corpuscular Hgb Conc 30.9 g/dL (32.0-36.0); Mean Corpuscular Volume 87.1 fL (80.0-100.0); Mean Platelet Volume 10.3 fL (9.4-12.3); Monocytes # (auto) 0.52 K/uL (0.24-0.82); Monocytes % (auto) 9.1 %; Neutrophils # (auto) 3.83 K/uL (1.4-6.5); Neutrophils % (auto) 66.8 %; Platelet Count 224 K/uL (130-400); RDW Coefficient of Variation 17.3 % (11.5-14.5); RDW Standard Deviation 53.9 fL (36.4-46.3); Red Blood Count 3.72 M/uL (3.93-5.22); White Blood Count 5.73 K/ul (4.8-10.8)
[2022-06-05 07:32] LABS: Albumin Level 3.1 gm/dl (3.4-5.0); BUN Creatinine Ratio 15.8 (10-20); Bilirubin,Total 0.4 mg/dl (0.2-1.0); Calcium 8.5 mg/dl (8.5-10.1); Creatinine Clr Calc Pharmacy 58.9 ml/min; Est GFR (African American) 68.1 ml/min; Est GFR (Non-African American) 58.8 ml/min; Globulin 3.2 gm/dl (2.5-4.0); Magnesium 2.1 mg/dl (1.7-2.4); Phosphorus 3.4 mg/dl (2.5-4.9); Potassium 3.7 mmol/L (3.5-5.1); Total Protein 6.3 gm/dl (6.0-8.3)
[2022-06-05] MEDS: LANTUS PER UNIT CHARGE SQ SCH ×2 (09:07→20:43)
[2022-06-05] MEDS: INSULIN ASPART PER UNIT SC SCH ×4 (09:07→20:43)
[2022-06-05] MEDS: NYSTATIN POWDER 15GM BTL EXT SCH ×2 (09:10→20:34)
[2022-06-05] MEDS: FUROSEMIDE 40 MG TAB PO SCH (09:10)
[2022-06-05] MEDS: cefTRIAXone SODIUM 2,000 MG in DEXTROSE 5% 50 ML IV SCH (09:20)
[2022-06-05] MEDS: TOPIRAMATE 100 MG TAB PO SCH ×2 (09:20→20:33)
[2022-06-05] MEDS: PANTOprazole 40 MG in SYRINGE 0 ML IV SCH (09:20)
[2022-06-05] MEDS: levETIRAcetam 500 MG TAB PO SCH ×2 (09:20→20:33)
[2022-06-05] MEDS: SPIRONOLACTONE 12.5 MG TAB PO SCH (09:21)
[2022-06-05] MEDS: METOPROLOL SUCC 50MG EXT REL TAB PO SCH (09:21)
[2022-06-05] MEDS: DOCUSATE SODIUM/SENNA 50/8.6MG TAB PO SCH (09:22)
[2022-06-05] MEDS: DOCUSATE SODIUM 100 MG CAP PO PRN (13:09)
--- NOTE | 2022-06-05 16:48 | Hospitalist Progress Note ---
Date of Service June 05, 2022 Assessment & Plan (1) GI bleed: Plan: Had an dark/possible melanotic stool on 06/03 with a drop in hemoglobin, transfused; considered possible GI bleed but not confirmed since single episode; she does not want endoscopy (some question of decisional capacity but to me she was answering questions appropriately); since then no more episodes, switched to p.o. PPI (2) Pyelonephritis: Plan: Bacteremic pyelonephritisgiven acute kidney injury switched to Rocephin; surveillance cultures negative to datecontinue for now; later can switch to oral beta-lactam (3) Bacteremia: Plan: 2nd to urinary source. of note, daughter who is caregiver states patient in power chair and does sit for extended periods of time in wet briefs despite being told about possibly getting UTI (4) Anemia: Plan: Hemoglobin is stabilizedfollow (5) Acute metabolic encephalopathy: Plan: improved, at baseline cognition abx for UTI/pyelo as above (6) Elevated troponin: Plan: At present nothing to suggest ACS Continue ASA 81mg po daily held with bleeding and OR, will resume if bleeding stable Continue Atorvastatin 40mg po daily Continue Metoprolol 50mg po daily (7) Chronic respiratory failure with hypoxia and hypercapnia: Plan: Appears at baseline 2 L oxygenfollow (8) Venous stasis ulcers of both lower extremities: Plan: S/p hematoma and drainage, debridementdressing changes as recommended by surgery; Follow-up in wound center upon discharge (9) Seizure disorder: Plan: Chronic. Stable Continue keppra, topamax hx noncompliance but stated has been getting these at home Levels for both in normal range, no evidence for seizure activity (10) Diabetes mellitus, type II: Plan: Sugars acceptableno change (11) Hypertension: Plan: Pressures in good rangeno change (12) NICM (nonischemic cardiomyopathy): Plan: Compensated Continue Metoprolol 50mg, Spironolactone 12.5mg, ASA on hold (13) Asthma: Plan: Chronic. Stable -Albuterol PRN -Continue home O2 (14) ADRYAN (acute kidney injury): Plan: Bactrim stopped,; improvedobserve Plan Dispositionanticipate SNF; case management working on same Admission and Anticipated Discharge Date Admission Date: May 24, 2022 Subjective Follow-up of original presentation with mental status changeswhat appears to be melanotic stool on 06/03 -not confirmed; no more known bleeding Physical Exam Physical Exam: Constitutional and general: No acute distress, looks biologic age Head and face: No puffiness, atraumatic Eyes: No scleral icterus, extraocular movements normal Neck: Supple, no JVD Musculoskeletal: No acute joint swelling, no bony abnormalities Skin/dermatologic/integument: No rash, no purpura Hematologic and lymphatic: pallor +, no petechia Gastrointestinal/abdomen: Nondistended, soft, nonacute Neurologic: Cranial nerves intact, nonfocal Cardiovascular: Heart rhythm regular, no rub, no murmur, no gallop Respiratory: Chest movements equal, no use of accessory muscles, no adventitious sounds Extremities: Edema with wrapped wounds Results & Data Results & Data ([facility]) Vital Signs (Past 12 Hours) Vital Signs Temp Pulse Pulse Resp BP BP Pulse Ox 06/05/22 15:01 36.9 C 70 18 121/75 99 06/05/22 07:30 06/05/22 09:17 83 110/68 06/05/22 07:30 36.8 C 72 18 105/67 98 O2 Del Method O2 Flow Rate 06/05/22 15:01 Nasal Cannula 2 06/05/22 07:30 Nasal Cannula 2 06/05/22 09:17 06/05/22 07:30 Nasal Cannula 2 Laboratory Results Laboratory Results - last 24 hr 06/04/22 06/04/22 06/05/22 16:51 20:50 06:31 WBC 5.73 RBC 3.72 L Hgb 10.0 L Hct 32.4 L MCV 87.1 MCH 26.9 MCHC 30.9 L RDW Std Deviation 53.9 H RDW Coeff of Ewa 17.3 H Plt Count 224 MPV 10.3 Immature Gran % (Auto) 1.2 Neut % (Auto) 66.8 Lymph % (Auto) 16.6 Mitchell % (Auto) 9.1 Eos % (Auto) 5.1 Baso % (Auto) 1.2 Neut # (Auto) 3.83 Lymph # (Auto) 0.95 L Mitchell # (Auto) 0.52 Eos # (Auto) 0.29 Baso # (Auto) 0.07 Immature Gran # (Auto) 0.07 H Sodium Potassium Chloride Carbon Dioxide Anion Gap BUN Creatinine Est Cr Clr Drug Dosing Est GFR ( Amer) Est GFR (Non-Af Amer) BUN/Creatinine Ratio Glucose POC Glucose 124 H 156 H Fasting Glucose Calcium Phosphorus Magnesium Total Bilirubin AST ALT Alkaline Phosphatase Total Protein Albumin Globulin Albumin/Globulin Ratio 06/05/22 06/05/22 06/05/22 06:31 07:57 11:50 WBC RBC Hgb Hct MCV MCH MCHC RDW Std Deviation RDW Coeff of Ewa Plt Count MPV Immature Gran % (Auto) Neut % (Auto) Lymph % (Auto) Mitchell % (Auto) Eos % (Auto) Baso % (Auto) Neut # (Auto) Lymph # (Auto) Mitchell # (Auto) Eos # (Auto) Baso # (Auto) Immature Gran # (Auto) Sodium 137 Potassium 3.7 Chloride 100 Carbon Dioxide 32 Anion Gap 5 BUN 16 Creatinine 1.01 Est Cr Clr Drug Dosing 58.9 Est GFR ( Amer) 68.1 Est GFR (Non-Af Amer) 58.8 BUN/Creatinine Ratio 15.8 Glucose 110 H POC Glucose 115 H 143 H Fasting Glucose 110 H Calcium 8.5 Phosphorus 3.4 Magnesium 2.1 Total Bilirubin 0.4 AST 33 ALT 19 Alkaline Phosphatase 124 H Total Protein 6.3 Albumin 3.1 L Globulin 3.2 Albumin/Globulin Ratio 1.0 PG Care Time/CCT Total # of Minutes Spent Total Time Spent with Patient: Total time spent is greater than 50% in coordination of care (as documented) at patient's floor/unit and/or counseling patient: Coding Level of Care Code 03232 Subseq Hosp Care Lvl 2 Diagnoses GI bleed K92.2 Pyelonephritis N12 Bacteremia R78.81 Anemia D64.9 Acute metabolic encephalopathy G93.41 Elevated troponin R77.8 Chronic respiratory failure with hypoxia and hypercapnia J96.11; J96.12 Venous stasis ulcers of both lower extremities I83.019; I83.029; L97.919; L97.929 Seizure disorder G40.909 Diabetes mellitus, type II E11.9 Diabetes mellitus halfway insulin use: without long chain beamer use Diabetes mellitus complication status: without complication Hypertension I10 Hypertension type: essential hypertension NICM (nonischemic cardiomyopathy) I42.8 Asthma J45.909 Asthma severity: unspecified severity Asthma persistence: unspecified Asthma complication type: uncomplicated ADRYAN (acute kidney injury) N17.9 (1) Diabetes mellitus, type II Diabetes mellitus halfway insulin use: without long chain beamer use Diabetes mellitus complication status: without complication Qualified Code(s): E11.9 - Type 2 diabetes mellitus without complications (2) Hypertension Hypertension type: essential hypertension Qualified Code(s): I10 - Essential (primary) hypertension (3) Asthma Asthma severity: unspecified severity Asthma persistence: unspecified Asthma complication type: uncomplicated Qualified Code(s): J45.909 - Unspecified asthma, uncomplicated
[2022-06-05] MEDS: ACETAMINOPHEN 325 MG TAB PO PRN (20:32)
[2022-06-05] MEDS: ATORVASTATIN 40 MG TAB PO SCH (20:33)
[2022-06-05] MEDS: PANTOprazole 40 MG TAB PO SCH (20:34)
[2022-06-06 07:26] LABS: Basophils # (auto) 0.08 K/uL (0-0.2); Basophils % (auto) 1.4 %; Eosinophils # (auto) 0.32 K/uL (0-0.50); Eosinophils % (auto) 5.6 %; Hematocrit (blood only) 33.3 % (34.1-44.9); Hemoglobin 10.1 g/dl (12.0-16.0); Immature Granulocytes # (auto) 0.07 K/uL (0.00-0.02); Immature Granulocytes % (auto) 1.2 %; Lymphocytes # (auto) 1.12 K/uL (1.2-3.4); Lymphocytes % (auto) 19.6 %; Mean Corpuscular Hemoglobin 26.6 pg (25.0-34.0); Mean Corpuscular Hgb Conc 30.3 g/dL (32.0-36.0); Mean Corpuscular Volume 87.6 fL (80.0-100.0); Mean Platelet Volume 10.7 fL (9.4-12.3); Monocytes # (auto) 0.58 K/uL (0.24-0.82); Monocytes % (auto) 10.2 %; Neutrophils # (auto) 3.53 K/uL (1.4-6.5); Platelet Count 233 K/uL (130-400); RDW Coefficient of Variation 17.1 % (11.5-14.5); RDW Standard Deviation 54.4 fL (36.4-46.3)
[2022-06-06 07:54] LABS: Albumin Globulin Ratio 0.9 (0.9-2); Bilirubin,Total 0.4 mg/dl (0.2-1.0); Calcium 8.7 mg/dl (8.5-10.1); Creatinine Clr Calc Pharmacy 59.5 ml/min; Est GFR (Non-African American) 59.5 ml/min; Globulin 3.2 gm/dl (2.5-4.0); Magnesium 2.1 mg/dl (1.7-2.4); Phosphorus 3.7 mg/dl (2.5-4.9); Potassium 3.8 mmol/L (3.5-5.1); Total Protein 6.2 gm/dl (6.0-8.3)
[2022-06-06] MEDS: LANTUS PER UNIT CHARGE SQ SCH ×2 (08:55→22:32)
[2022-06-06] MEDS: INSULIN ASPART PER UNIT SC SCH ×4 (08:55→22:32)
[2022-06-06] MEDS: levETIRAcetam 500 MG TAB PO SCH ×2 (08:56→20:27)
[2022-06-06] MEDS: FUROSEMIDE 40 MG TAB PO SCH (08:56)
[2022-06-06] MEDS: SPIRONOLACTONE 12.5 MG TAB PO SCH (08:56)
[2022-06-06] MEDS: DOCUSATE SODIUM/SENNA 50/8.6MG TAB PO SCH (08:56)
[2022-06-06] MEDS: TOPIRAMATE 100 MG TAB PO SCH ×2 (08:56→20:27)
[2022-06-06] MEDS: PANTOprazole 40 MG TAB PO SCH ×2 (08:56→20:27)
[2022-06-06] MEDS: METOPROLOL SUCC 50MG EXT REL TAB PO SCH (08:56)
[2022-06-06] MEDS: NYSTATIN POWDER 15GM BTL EXT SCH ×2 (08:56→20:27)
[2022-06-06] MEDS: cefTRIAXone SODIUM 2,000 MG in DEXTROSE 5% 50 ML IV SCH (08:59)
[2022-06-06] MEDS: ACETAMINOPHEN 325 MG TAB PO PRN (10:54)
--- NOTE | 2022-06-06 17:57 | Hospitalist Progress Note ---
Date of Service June 06, 2022 Assessment & Plan (1) GI bleed: Plan: Episode of melanotic stools with drop in hemoglobin 06-03-2022 and now occult positive; has appropriately responded to transfusion with stable to improved hemoglobin suggesting no brisk bleeding; does not want endoscopy but family think she should have one (some question of decision-making capacity); prior to today bleeding was not confirmed; I called them that they may want to come in a.m. and talk to her (apparently similar convincing was necessary prior to leg hematoma debridement); if she agrees can consult GI; however, it is very possible GI says continue PPI and observe (2) Pyelonephritis: Plan: Bacteremic pyelonephritisE. coli in blood 05-24-2022; was on p.o. Bactrim after initial given acute kidney injury switched to Rocephin; surveillance cultures negative to datecontinue for now; later can switch to oral beta-lactam (3) Bacteremia: Plan: 2nd to urinary source. of note, daughter who is caregiver states patient in power chair and does sit for extended periods of time in wet briefs despite being told about possibly getting UTI (4) Anemia: Plan: Hemoglobin is stabilizedfollow (5) Acute metabolic encephalopathy: Plan: improved, at baseline cognition abx for UTI/pyelo as above (6) Elevated troponin: Plan: At present nothing to suggest ACS Continue ASA 81mg po daily held with bleeding and OR, will resume if bleeding stable Continue Atorvastatin 40mg po daily Continue Metoprolol 50mg po daily (7) Chronic respiratory failure with hypoxia and hypercapnia: Plan: Appears at baseline 2 L oxygenfollow (8) Venous stasis ulcers of both lower extremities: Plan: S/p hematoma and drainage, debridementdressing changes as recommended by surgery; follow-up in wound center upon discharge (9) Seizure disorder: Plan: Chronic. Stable Continue keppra, topamax hx noncompliance but stated has been getting these at home Levels for both in normal range, no evidence for seizure activity (10) Diabetes mellitus, type II: Plan: Sugars acceptableno change (11) Hypertension: Plan: Pressures in good rangeno change (12) NICM (nonischemic cardiomyopathy): Plan: Compensated Continue Metoprolol 50mg, Spironolactone 12.5mg, ASA on hold (13) Asthma: Plan: Chronic. Stable -Albuterol PRN -Continue home O2 (14) ADRYAN (acute kidney injury): Plan: Bactrim stopped,; improvedobserve Plan Mildly elevated AST notedobserve; no clinical correlate even on reevaluation dispositionanticipate SNF; case management working on same Admission and Anticipated Discharge Date Admission Date: May 24, 2022 Subjective Follow-up of original presentation with mental status changesrecent event, melanotic stool, drop in hemoglobin; GI bleeding was not confirmed but now occult blood positive and nursing reports dark stools; she herself has no complaints Physical Exam Physical Exam: Constitutional and general: No acute distress, looks biologic age Head and face: No puffiness, atraumatic Eyes: No scleral icterus, extraocular movements normal Neck: Supple, no JVD Musculoskeletal: No acute joint swelling, no bony abnormalities Skin/dermatologic/integument: No rash, no purpura Hematologic and lymphatic: pallor +, no petechia Gastrointestinal/abdomen: distended, soft, nonacute Neurologic: Cranial nerves intact, nonfocal Cardiovascular: Heart rhythm regular, no rub, no murmur, no gallop Respiratory: Chest movements equal, no use of accessory muscles, no adventitious sounds Extremities: Status postdebridement and dressed wounds Results & Data Results & Data ([facility]) Vital Signs (Past 12 Hours) Vital Signs Temp Pulse Pulse Resp BP Pulse Ox O2 Del Method 06/06/22 15:28 36.9 C 76 101/67 97 Room Air 06/06/22 07:45 Nasal Cannula 06/06/22 06:59 36.5 C 78 18 122/77 97 Nasal Cannula O2 Flow Rate 06/06/22 15:28 06/06/22 07:45 2 06/06/22 06:59 2.0 Laboratory Results Laboratory Results - last 24 hr 06/05/22 06/06/22 06/06/22 20:39 05:49 06:31 WBC 5.70 RBC 3.80 L Hgb 10.1 L Hct 33.3 L MCV 87.6 MCH 26.6 MCHC 30.3 L RDW Std Deviation 54.4 H RDW Coeff of Ewa 17.1 H Plt Count 233 MPV 10.7 Immature Gran % (Auto) 1.2 Neut % (Auto) 62.0 Lymph % (Auto) 19.6 [place] % (Auto) 10.2 Eos % (Auto) 5.6 Baso % (Auto) 1.4 Neut # (Auto) 3.53 Lymph # (Auto) 1.12 L [place] # (Auto) 0.58 Eos # (Auto) 0.32 Baso # (Auto) 0.08 Immature Gran # (Auto) 0.07 H Sodium Potassium Chloride Carbon Dioxide Anion Gap BUN Creatinine Est Cr Clr Drug Dosing Est GFR ( Amer) Est GFR (Non-Af Amer) POC Glucose 147 H Fasting Glucose Calcium Phosphorus Magnesium Total Bilirubin AST ALT Alkaline Phosphatase Total Protein Albumin Globulin Albumin/Globulin Ratio Stool Occult Bld Scrn Positive A 06/06/22 06/06/22 06/06/22 06:31 08:17 12:32 WBC RBC Hgb Hct MCV MCH MCHC RDW Std Deviation RDW Coeff of Ewa Plt Count MPV Immature Gran % (Auto) Neut % (Auto) Lymph % (Auto) [place] % (Auto) Eos % (Auto) Baso % (Auto) Neut # (Auto) Lymph # (Auto) [place] # (Auto) Eos # (Auto) Baso # (Auto) Immature Gran # (Auto) Sodium 138 Potassium 3.8 Chloride 101 Carbon Dioxide 33 H Anion Gap 4 BUN 17 Creatinine 1.00 Est Cr Clr Drug Dosing 59.5 Est GFR ( Amer) 69.0 Est GFR (Non-Af Amer) 59.5 POC Glucose 119 H 137 H Fasting Glucose 118 H Calcium 8.7 Phosphorus 3.7 Magnesium 2.1 Total Bilirubin 0.4 AST 43 H ALT 26 Alkaline Phosphatase 139 H Total Protein 6.2 Albumin 3.0 L Globulin 3.2 Albumin/Globulin Ratio 0.9 Stool Occult Bld Scrn 06/06/22 17:04 WBC RBC Hgb Hct MCV MCH MCHC RDW Std Deviation RDW Coeff of Ewa Plt Count MPV Immature Gran % (Auto) Neut % (Auto) Lymph % (Auto) [place] % (Auto) Eos % (Auto) Baso % (Auto) Neut # (Auto) Lymph # (Auto) [place] # (Auto) Eos # (Auto) Baso # (Auto) Immature Gran # (Auto) Sodium Potassium Chloride Carbon Dioxide Anion Gap BUN Creatinine Est Cr Clr Drug Dosing Est GFR ( Amer) Est GFR (Non-Af Amer) POC Glucose 121 H Fasting Glucose Calcium Phosphorus Magnesium Total Bilirubin AST ALT Alkaline Phosphatase Total Protein Albumin Globulin Albumin/Globulin Ratio Stool Occult Bld Scrn PG Care Time/CCT Total # of Minutes Spent Total Time Spent with Patient: Total time spent is greater than 50% in coordination of care (as documented) at patient's floor/unit and/or counseling patient: Coding Level of Care Code 72252 Subseq Hosp Care Lvl 2 Diagnoses GI bleed K92.2 Pyelonephritis N12 Bacteremia R78.81 Anemia D64.9 Acute metabolic encephalopathy G93.41 Elevated troponin R77.8 Chronic respiratory failure with hypoxia and hypercapnia J96.11; J96.12 Venous stasis ulcers of both lower extremities I83.019; I83.029; L97.919; L97.929 Seizure disorder G40.909 Diabetes mellitus, type II E11.9 Diabetes mellitus complication status: without complication Diabetes mellitus exterminator insulin use: without exterminator use Hypertension I10 Hypertension type: essential hypertension NICM (nonischemic cardiomyopathy) I42.8 Asthma J45.909 Asthma complication type: uncomplicated Asthma persistence: unspecified Asthma severity: unspecified severity ADRYAN (acute kidney injury) N17.9 (1) Diabetes mellitus, type II Diabetes mellitus complication status: without complication Diabetes mellitus skilled nursing insulin use: without exterminator use Qualified Code(s): E11.9 - Type 2 diabetes mellitus without complications (2) Hypertension Hypertension type: essential hypertension Qualified Code(s): I10 - Essential (primary) hypertension (3) Asthma Asthma complication type: uncomplicated Asthma persistence: unspecified Asthma severity: unspecified severity Qualified Code(s): J45.909 - Unspecified asthma, uncomplicated
[2022-06-06] MEDS: ATORVASTATIN 40 MG TAB PO SCH (20:27)
--- NOTE | 2022-06-07 07:26 | Hospitalist Progress Note ---
Date of Service June 07, 2022 Assessment & Plan (1) GI bleed: Plan: Admitted with Pyelonephritis/Bacteremia, hx HOSEA on oral iron supplements prior to admit and received Venofer IV while inpatient with improvement in hgb to 9.6 However had fall subsequently getting out of bed and developed hematoma/bleeding varicosity/blood loss and subsequently had episode of melanotic stools with drop in hemoglobin 06-03-2022 and now occult positive Given 2u PRBC, repeat hgb stable Continue PPI PO BID, patient adamantly refusing EGD/c-scope. Discussed with daugther and no further bleeding/hgb stable and holding off Diet ordered Monitor CBC/further bleeding (2) Pyelonephritis: Plan: Bacteremic pyelonephritisE. coli in blood 05-24-2022; was on p.o. Bactrim after initial given acute kidney injury switched to Rocephin; surveillance cultures negative to datecontinue for now; later can switch to oral beta-lactam however end date should be 06/07 to complete 14 day course, will extend to tomorrow then stop to ensure adequate duration (3) Bacteremia: Plan: 2nd to urinary source. of note, daughter who is caregiver states patient in power chair and does sit for extended periods of time in wet briefs despite being told about possibly getting UTI (4) Anemia: Plan: Hx HOSEA, to be on PO supplementation at home Hemoglobin is stabilized since Venofer IV x5, then hematoma/varicosity bleeding and requirement of 2u PRBC hgb stable on repeat (5) Acute metabolic encephalopathy: Plan: improved, at baseline cognition abx for UTI/pyelo as above patient daughter stating patient being particular how she is usually and indicating back to baseline will need rehab. NOT target per discussion with CM (6) Elevated troponin: Plan: At present nothing to suggest ACS Continue ASA 81mg po daily held with bleeding and OR, will resume if bleeding stable Continue Atorvastatin 40mg po daily Continue Metoprolol 50mg po daily (7) Chronic respiratory failure with hypoxia and hypercapnia: Plan: Appears at baseline 2 L oxygenfollow titrate to maintain sats as typically only need 1L at rest to prevent worsening hypercapneia (8) Venous stasis ulcers of both lower extremities: Plan: S/p hematoma and drainage, debridement dressing changes as recommended by surgery; follow-up in wound center upon discharge (9) Seizure disorder: Plan: Chronic. Stable Continue keppra, topamax hx noncompliance but stated has been getting these at home Levels for both in normal range, no evidence for seizure activity (10) Diabetes mellitus, type II: Plan: Sugars acceptableno change (11) Hypertension: Plan: Pressures in good rangeno change and typically low normal BPs (12) NICM (nonischemic cardiomyopathy): Plan: Compensated Continue Metoprolol 50mg, Spironolactone 12.5mg, ASA on hold due to GI bleeding and will hold for now/resume as able (last dose 05/31, consider resuming after 1 week reported GI bleeding on 06/03) No CP/SOB reported (13) Asthma: Plan: Chronic. Stable -Albuterol PRN -Continue home O2 as needed (14) ADRYAN (acute kidney injury): Plan: Bactrim stopped,; improvedobserve Plan PT/OT continue to rec SNF. CM following and referrals sent but likely no bed until later this week/next week Abx complete after tomorrow Updated daughter Yesenia 06/07 Admission and Anticipated Discharge Date Admission Date: May 24, 2022 Supervising Physician Co-Signing Physician Notes Attending Attestation - Chart reviewed, care plan d/w ZULEMA Michaud. I agree w/ the macias components of her documentation. Miles Vallejo MD Subjective Evaluated this morning, resting comfortably No pain/need for pain medication Top priority is to have coffee and meatloaf and is hungry. She does NOT want an EGD/colonoscopy. Discussed with day and ok. Inquiring on when bed available for rehab, will touch base with CM. Review of Systems Review of Systems: All systems reviewed & are unremarkable except as noted in HPI & below Physical Exam Physical Exam: General: WD/WN female resting in bed,resting upon entry, no acute distress HEENT: head normocephalic, atraumatic, mmm, trachea midline without deviation, thick neck, pupils equal, anicteric, ears nontender, hearing slightly diminished Resp: not tachypneic, no cough, lung sounds diminished in the bases, faint end expiratory wheezing, on 2L NC CV: regular rhythm, rate, no m/r/g, 1+ pedal edema with chronic venous stasis changes and dressings to b/L LE GI: +BS, soft, nontender MSK/Neuro; moves all extremities, no focal deficits, generalized weakness Skin: gluteal breakdown, covered, skin blanchable, b/l LE dressings in place Psych: alert to person/place, intellectual disability Results & Data Results & Data ([facility]) Vital Signs (Past 12 Hours) Vital Signs Temp Pulse Resp BP BP Pulse Ox O2 Del Method 06/06/22 22:25 36.7 C 76 18 104/69 100 Nasal Cannula 06/06/22 20:00 Nasal Cannula 06/06/22 20:15 36.7 C 80 18 102/69 99 Nasal Cannula O2 Flow Rate 06/06/22 22:25 2 06/06/22 20:00 2 06/06/22 20:15 2 Laboratory Results 06/07/22 06/07/22 06/07/22 Range/Units 11:54 08:13 08:13 WBC 6.02 (4.8-10.8) K/ul RBC 3.80 L (3.93-5.22) M/uL Hgb 10.3 L (12.0-16.0) g/dl Hct 33.5 L (34.1-44.9) % MCV 88.2 (80.0-100.0) fL MCH 27.1 (25.0-34.0) pg MCHC 30.7 L (32.0-36.0) g/dL RDW Std Deviation 53.6 H (36.4-46.3) fL RDW Coeff of Ewa 16.7 H (11.5-14.5) % Plt Count 216 (130-400) K/uL MPV 9.9 (9.4-12.3) fL Immature Gran % (Auto) 0.7 % Neut % (Auto) 67.0 % Lymph % (Auto) 17.1 % [place] % (Auto) 9.0 % Eos % (Auto) 5.0 % Baso % (Auto) 1.2 % Neut # (Auto) 4.04 (1.4-6.5) K/uL Lymph # (Auto) 1.03 L (1.2-3.4) K/uL [place] # (Auto) 0.54 (0.24-0.82) K/uL Eos # (Auto) 0.30 (0-0.50) K/uL Baso # (Auto) 0.07 (0-0.2) K/uL Immature Gran # (Auto) 0.04 H (0.00-0.02) K/uL Sodium 139 (136-145) mmol/L Potassium 3.6 (3.5-5.1) mmol/L Chloride 102 (98-107) mmol/L Carbon Dioxide 32 (21-32) mmol/L Anion Gap 5 (3-11) BUN 15 (6-23) mg/dl Creatinine 0.99 (0.6-1.2) mg/dl Est Cr Clr Drug Dosing 60.1 ml/min Est GFR ( Amer) 69.8 ml/min Est GFR (Non-Af Amer) 60.2 ml/min POC Glucose 111 H (70-99) mg/dl Fasting Glucose 120 H (70-99) mg/dl Calcium 8.9 (8.5-10.1) mg/dl Phosphorus 3.4 (2.5-4.9) mg/dl Magnesium 1.9 (1.7-2.4) mg/dl Total Bilirubin 0.4 (0.2-1.0) mg/dl AST 35 (13-39) U/L ALT 28 (7-52) U/L Alkaline Phosphatase 138 H (34-104) U/L Total Protein 6.2 (6.0-8.3) gm/dl Albumin 3.0 L (3.4-5.0) gm/dl Globulin 3.2 (2.5-4.0) gm/dl Albumin/Globulin Ratio 0.9 (0.9-2) 06/07/22 06/07/22 06/06/22 Range/Units 07:56 06:09 20:28 WBC (4.8-10.8) K/ul RBC (3.93-5.22) M/uL Hgb (12.0-16.0) g/dl Hct (34.1-44.9) % MCV (80.0-100.0) fL MCH (25.0-34.0) pg MCHC (32.0-36.0) g/dL RDW Std Deviation (36.4-46.3) fL RDW Coeff of Ewa (11.5-14.5) % Plt Count (130-400) K/uL MPV (9.4-12.3) fL Immature Gran % (Auto) % Neut % (Auto) % Lymph % (Auto) % [place] % (Auto) % Eos % (Auto) % Baso % (Auto) % Neut # (Auto) (1.4-6.5) K/uL Lymph # (Auto) (1.2-3.4) K/uL [place] # (Auto) (0.24-0.82) K/uL Eos # (Auto) (0-0.50) K/uL Baso # (Auto) (0-0.2) K/uL Immature Gran # (Auto) (0.00-0.02) K/uL Sodium (136-145) mmol/L Potassium (3.5-5.1) mmol/L Chloride (98-107) mmol/L Carbon Dioxide (21-32) mmol/L Anion Gap (3-11) BUN (6-23) mg/dl Creatinine (0.6-1.2) mg/dl Est Cr Clr Drug Dosing ml/min Est GFR ( Amer) ml/min Est GFR (Non-Af Amer) ml/min POC Glucose 117 H 120 H 209 H (70-99) mg/dl Fasting Glucose (70-99) mg/dl Calcium (8.5-10.1) mg/dl Phosphorus (2.5-4.9) mg/dl Magnesium (1.7-2.4) mg/dl Total Bilirubin (0.2-1.0) mg/dl AST (13-39) U/L ALT (7-52) U/L Alkaline Phosphatase (34-104) U/L Total Protein (6.0-8.3) gm/dl Albumin (3.4-5.0) gm/dl Globulin (2.5-4.0) gm/dl Albumin/Globulin Ratio (0.9-2) 06/06/22 Range/Units 17:04 WBC (4.8-10.8) K/ul RBC (3.93-5.22) M/uL Hgb (12.0-16.0) g/dl Hct (34.1-44.9) % MCV (80.0-100.0) fL MCH (25.0-34.0) pg MCHC (32.0-36.0) g/dL RDW Std Deviation (36.4-46.3) fL RDW Coeff of Ewa (11.5-14.5) % Plt Count (130-400) K/uL MPV (9.4-12.3) fL Immature Gran % (Auto) % Neut % (Auto) % Lymph % (Auto) % [place] % (Auto) % Eos % (Auto) % Baso % (Auto) % Neut # (Auto) (1.4-6.5) K/uL Lymph # (Auto) (1.2-3.4) K/uL [place] # (Auto) (0.24-0.82) K/uL Eos # (Auto) (0-0.50) K/uL Baso # (Auto) (0-0.2) K/uL Immature Gran # (Auto) (0.00-0.02) K/uL Sodium (136-145) mmol/L Potassium (3.5-5.1) mmol/L Chloride (98-107) mmol/L Carbon Dioxide (21-32) mmol/L Anion Gap (3-11) BUN (6-23) mg/dl Creatinine (0.6-1.2) mg/dl Est Cr Clr Drug Dosing ml/min Est GFR ( Amer) ml/min Est GFR (Non-Af Amer) ml/min POC Glucose 121 H (70-99) mg/dl Fasting Glucose (70-99) mg/dl Calcium (8.5-10.1) mg/dl Phosphorus (2.5-4.9) mg/dl Magnesium (1.7-2.4) mg/dl Total Bilirubin (0.2-1.0) mg/dl AST (13-39) U/L ALT (7-52) U/L Alkaline Phosphatase (34-104) U/L Total Protein (6.0-8.3) gm/dl Albumin (3.4-5.0) gm/dl Globulin (2.5-4.0) gm/dl Albumin/Globulin Ratio (0.9-2) PG Care Time/CCT Total # of Minutes Spent Total Time Spent with Patient: Total time spent is greater than 50% in coordination of care (as documented) at patient's floor/unit and/or counseling patient: Coding Level of Care Code 83128 Subseq Hosp Care Lvl 2 Diagnoses GI bleed K92.2 Pyelonephritis N12 Bacteremia R78.81 Anemia D64.9 Acute metabolic encephalopathy G93.41 Elevated troponin R77.8 Chronic respiratory failure with hypoxia and hypercapnia J96.11; J96.12 Venous stasis ulcers of both lower extremities I83.019; I83.029; L97.919; L97.929 Seizure disorder G40.909 Diabetes mellitus, type II E11.9 Diabetes mellitus complication status: without complication 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 use: without watcher automat long goods use Hypertension I10 Hypertension type: essential hypertension NICM (nonischemic cardiomyopathy) I42.8 Asthma J45.909 Asthma complication type: uncomplicated Asthma persistence: unspecified Asthma severity: unspecified severity ADRYAN (acute kidney injury) N17.9 (1) Diabetes mellitus, type II Diabetes mellitus complication status: without complication Diabetes mellitus usp insulin use: without usp use Qualified Code(s): E11.9 - Type 2 diabetes mellitus without complications (2) Hypertension Hypertension type: essential hypertension Qualified Code(s): I10 - Essential (primary) hypertension (3) Asthma Asthma complication type: uncomplicated Asthma persistence: unspecified Asthma severity: unspecified severity Qualified Code(s): J45.909 - Unspecified asthma, uncomplicated
[2022-06-07 08:28] LABS: Basophils # (auto) 0.07 K/uL (0-0.2); Basophils % (auto) 1.2 %; Hematocrit (blood only) 33.5 % (34.1-44.9); Hemoglobin 10.3 g/dl (12.0-16.0); Immature Granulocytes # (auto) 0.04 K/uL (0.00-0.02); Immature Granulocytes % (auto) 0.7 %; Lymphocytes # (auto) 1.03 K/uL (1.2-3.4); Lymphocytes % (auto) 17.1 %; Mean Corpuscular Hemoglobin 27.1 pg (25.0-34.0); Mean Corpuscular Hgb Conc 30.7 g/dL (32.0-36.0); Mean Corpuscular Volume 88.2 fL (80.0-100.0); Mean Platelet Volume 9.9 fL (9.4-12.3); Monocytes # (auto) 0.54 K/uL (0.24-0.82); Neutrophils # (auto) 4.04 K/uL (1.4-6.5); Platelet Count 216 K/uL (130-400); RDW Coefficient of Variation 16.7 % (11.5-14.5); RDW Standard Deviation 53.6 fL (36.4-46.3); White Blood Count 6.02 K/ul (4.8-10.8)
[2022-06-07 08:56] LABS: Albumin Globulin Ratio 0.9 (0.9-2); Bilirubin,Total 0.4 mg/dl (0.2-1.0); Calcium 8.9 mg/dl (8.5-10.1); Creatinine Clr Calc Pharmacy 60.1 ml/min; Est GFR (African American) 69.8 ml/min; Est GFR (Non-African American) 60.2 ml/min; Globulin 3.2 gm/dl (2.5-4.0); Magnesium 1.9 mg/dl (1.7-2.4); Phosphorus 3.4 mg/dl (2.5-4.9); Potassium 3.6 mmol/L (3.5-5.1); Total Protein 6.2 gm/dl (6.0-8.3)
[2022-06-07] MEDS: INSULIN ASPART PER UNIT SC SCH ×4 (09:27→21:03)
[2022-06-07] MEDS: LANTUS PER UNIT CHARGE SQ SCH ×2 (13:46→21:08)
[2022-06-07] MEDS: levETIRAcetam 500 MG TAB PO SCH ×2 (13:49→21:03)
[2022-06-07] MEDS: METOPROLOL SUCC 50MG EXT REL TAB PO SCH (13:50)
[2022-06-07] MEDS: FUROSEMIDE 40 MG TAB PO SCH (13:50)
[2022-06-07] MEDS: SPIRONOLACTONE 12.5 MG TAB PO SCH (13:50)
[2022-06-07] MEDS: TOPIRAMATE 100 MG TAB PO SCH ×2 (13:51→21:04)
[2022-06-07] MEDS: PANTOprazole 40 MG TAB PO SCH ×2 (13:52→21:04)
[2022-06-07] MEDS: NYSTATIN POWDER 15GM BTL EXT SCH ×2 (13:53→21:04)
[2022-06-07] MEDS: cefTRIAXone SODIUM 2,000 MG in DEXTROSE 5% 50 ML IV SCH (13:54)
[2022-06-07] MEDS: ATORVASTATIN 40 MG TAB PO SCH (21:02)
[2022-06-07] MEDS: DOCUSATE SODIUM/SENNA 50/8.6MG TAB PO SCH (21:06)
[2022-06-08 07:43] LABS: Basophils # (auto) 0.08 K/uL (0-0.2); Basophils % (auto) 1.4 %; Eosinophils # (auto) 0.31 K/uL (0-0.50); Eosinophils % (auto) 5.4 %; Hematocrit (blood only) 31.3 % (34.1-44.9); Hemoglobin 9.7 g/dl (12.0-16.0); Immature Granulocytes # (auto) 0.03 K/uL (0.00-0.02); Immature Granulocytes % (auto) 0.5 %; Lymphocytes % (auto) 15.8 %; Mean Corpuscular Volume 87.2 fL (80.0-100.0); Monocytes # (auto) 0.51 K/uL (0.24-0.82); Monocytes % (auto) 8.9 %; Neutrophils # (auto) 3.88 K/uL (1.4-6.5); Platelet Count 201 K/uL (130-400); RDW Coefficient of Variation 16.5 % (11.5-14.5); RDW Standard Deviation 52.5 fL (36.4-46.3); Red Blood Count 3.59 M/uL (3.93-5.22); White Blood Count 5.71 K/ul (4.8-10.8)
[2022-06-08 08:07] LABS: Albumin Globulin Ratio 0.9 (0.9-2); Bilirubin,Total 0.4 mg/dl (0.2-1.0); Calcium 8.6 mg/dl (8.5-10.1); Creatinine Clr Calc Pharmacy 61.3 ml/min; Est GFR (African American) 71.5 ml/min; Est GFR (Non-African American) 61.7 ml/min; Globulin 3.4 gm/dl (2.5-4.0); Magnesium 1.9 mg/dl (1.7-2.4); Phosphorus 3.3 mg/dl (2.5-4.9); Potassium 3.4 mmol/L (3.5-5.1); Total Protein 6.4 gm/dl (6.0-8.3)
[2022-06-08] MEDS ORDERED: POTASSIUM CHLORIDE CRTAB 20 MEQ TABCR PO STA (08:17)
--- NOTE | 2022-06-08 08:17 | Hospitalist Progress Note ---
Date of Service June 08, 2022 Assessment & Plan (1) GI bleed: Plan: Admitted with Pyelonephritis/Bacteremia, hx HOSEA on oral iron supplements prior to admit and received Venofer IV while inpatient with improvement in hgb to 9.6 However had fall subsequently getting out of bed and developed hematoma/bleeding varicosity/blood loss and subsequently had episode of melanotic stools with drop in hemoglobin 06-03-2022 and now occult positive Given 2u PRBC, repeat hgb remains stable and no further bleeding reported Continue PPI PO BID, patient adamantly refusing EGD/c-scope. Discussed with daughter and no further bleeding/hgb stable and holding off Diet ordered Plan to possible resume ASA 81mg daily for tomorrow? Completing abx for pyelo/bacteremia as below today, awaiting placement at rehab (2) Pyelonephritis: Plan: Bacteremic pyelonephritisE. coli in blood 05-24-2022; was on p.o. Bactrim after initial given acute kidney injury switched to Rocephin d/c abx after dose 06/08 to complete course while inpatient. Repeat bcx NGTD WBC wnl, afebrile (3) Bacteremia: Plan: 2nd to urinary source. of note, daughter who is caregiver states patient in power chair and does sit for extended periods of time in wet briefs despite being told about possibly getting UTI (4) Anemia: Plan: Hx HOSEA, to be on PO supplementation at home Hemoglobin is stabilized since Venofer IV x5, then hematoma/varicosity bleeding and requirement of 2u PRBC hgb stable on repeat Does NOT want endoscopy as outlined. 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 NOT target per discussion with CM (6) Elevated troponin: Plan: At present nothing to suggest ACS ASA 81mg po daily held with bleeding and OR, will resume if no further bleeding in AM after 1 wk Continue Atorvastatin 40mg po daily Continue Metoprolol 50mg po daily (7) Chronic respiratory failure with hypoxia and hypercapnia: Plan: Appears at baseline 2 L oxygenfollow titrate to maintain sats as typically only need 1L at rest to prevent wor sening hypercapneia (96% on 1L at rest) (8) Venous stasis ulcers of both lower extremities: Plan: S/p hematoma and drainage, debridement dressing changes as recommended by surgery; follow-up in wound center upon discharge. asked imani to revisit just given event occurred in hospital. will re-eval wounds with her tomorrow if able (9) Seizure disorder: Plan: Chronic. Stable Continue keppra, topamax hx noncompliance but stated has been getting these at home Levels for both in normal range, no evidence for seizure activity (10) Diabetes mellitus, type II: Plan: Sugars acceptableno change (11) Hypertension: Plan: Pressures in good rangeno change and typically low normal BPs (12) NICM (nonischemic cardiomyopathy): Plan: Compensated Continue Metoprolol 50mg, Spironolactone 12.5mg, ASA on hold due to GI bleeding and will hold for now/resume as able (last dose 05/31, consider resuming after 1 week reported GI bleeding on 06/03) No CP/SOB reported (13) Asthma: Plan: Chronic. Stable -Albuterol PRN -Continue home O2 as needed (14) ADRYAN (acute kidney injury): Plan: Bactrim stopped,; improvedobserve Plan Abx completed today Updated daughter Yesenia 06/07 PT/OT continue to rec SNF. CM following and referrals sent but likely no bed until later this week/next week Admission and Anticipated Discharge Date Admission Date: May 24, 2022 Supervising Physician Co-Signing Physician Notes PA Supervision Note: I did not personally see or examine the patient today, but I verified all macias points of ZULEMA Michaud's assessment and plan with the following exceptions/additions: None Subjective Evaluated this morning. Looking much better, happier now that shes been able to eat. More bright than in days past. Still decline endoscopy as discussed with daughter yesterday. No increased bleeding reported. Completing abx today and awaiting bed at rehab. Having to be delicate with patient/continued encouragement. Patient denies any fever/chills, chest pain, shortness of breath. Currently stable on 1L NC. Review of Systems Review of Systems: All systems reviewed & are unremarkable except as noted in HPI & below Physical Exam Physical Exam: General: WD/WN female resting in bed,resting upon entry, no acute distress HEENT: head normocephalic, atraumatic, mmm, trachea midline without deviation, thick neck, pupils equal, anicteric, ears nontender, hearing slightly diminished Resp: not tachypneic, no cough, lung sounds diminished in the bases, faint end expiratory wheezing, on 2L NC CV: regular rhythm, rate (92bpm) no m/r/g, 1+ pedal edema with b/l leg dressings in place, c/d/i, no streaking erythema/evidence for infection currently, chronic venous stasis changes GI: +BS, soft, nontender MSK/Neuro; moves all extremities, no focal deficits, generalized weakness but improved some Skin: gluteal breakdown, covered, skin blanchable, b/l LE dressings in place Psych: alert to person/place, intellectual disability at baseline cognitively Results & Data Results & Data ([facility]) Vital Signs (Past 12 Hours) Vital Signs Temp Pulse Resp BP Pulse Ox O2 Del Method O2 Flow Rate 06/08/22 00:15 36.8 C 72 18 102/70 99 Nasal Cannula 2.0 06/07/22 23:54 Nasal Cannula 2 Laboratory Results 06/08/22 06/08/22 06/08/22 Range/Units 12:03 08:01 07:20 WBC (4.8-10.8) K/ul RBC (3.93-5.22) M/uL Hgb (12.0-16.0) g/dl Hct (34.1-44.9) % MCV (80.0-100.0) fL MCH (25.0-34.0) pg MCHC (32.0-36.0) g/dL RDW Std Deviation (36.4-46.3) fL RDW Coeff of Ewa (11.5-14.5) % Plt Count (130-400) K/uL MPV (9.4-12.3) fL Immature Gran % (Auto) % Neut % (Auto) % Lymph % (Auto) % [place] % (Auto) % Eos % (Auto) % Baso % (Auto) % Neut # (Auto) (1.4-6.5) K/uL Lymph # (Auto) (1.2-3.4) K/uL [place] # (Auto) (0.24-0.82) K/uL Eos # (Auto) (0-0.50) K/uL Baso # (Auto) (0-0.2) K/uL Immature Gran # (Auto) (0.00-0.02) K/uL Sodium 137 (136-145) mmol/L Potassium 3.4 L (3.5-5.1) mmol/L Chloride 100 (98-107) mmol/L Carbon Dioxide 32 (21-32) mmol/L Anion Gap 5 (3-11) BUN 17 (6-23) mg/dl Creatinine 0.97 (0.6-1.2) mg/dl Est Cr Clr Drug Dosing 61.3 ml/min Est GFR ( Amer) 71.5 ml/min Est GFR (Non-Af Amer) 61.7 ml/min POC Glucose 189 H 117 H (70-99) mg/dl Fasting Glucose 123 H (70-99) mg/dl Calcium 8.6 (8.5-10.1) mg/dl Phosphorus 3.3 (2.5-4.9) mg/dl Magnesium 1.9 (1.7-2.4) mg/dl Total Bilirubin 0.4 (0.2-1.0) mg/dl AST 27 (13-39) U/L ALT 24 (7-52) U/L Alkaline Phosphatase 137 H (34-104) U/L Total Protein 6.4 (6.0-8.3) gm/dl Albumin 3.0 L (3.4-5.0) gm/dl Globulin 3.4 (2.5-4.0) gm/dl Albumin/Globulin Ratio 0.9 (0.9-2) 06/08/22 06/07/22 06/07/22 Range/Units 07:20 20:40 16:52 WBC 5.71 (4.8-10.8) K/ul RBC 3.59 L (3.93-5.22) M/uL Hgb 9.7 L (12.0-16.0) g/dl Hct 31.3 L (34.1-44.9) % MCV 87.2 (80.0-100.0) fL MCH 27.0 (25.0-34.0) pg MCHC 31.0 L (32.0-36.0) g/dL RDW Std Deviation 52.5 H (36.4-46.3) fL RDW Coeff of Ewa 16.5 H (11.5-14.5) % Plt Count 201 (130-400) K/uL MPV 10.0 (9.4-12.3) fL Immature Gran % (Auto) 0.5 % Neut % (Auto) 68.0 % Lymph % (Auto) 15.8 % [place] % (Auto) 8.9 % Eos % (Auto) 5.4 % Baso % (Auto) 1.4 % Neut # (Auto) 3.88 (1.4-6.5) K/uL Lymph # (Auto) 0.90 L (1.2-3.4) K/uL [place] # (Auto) 0.51 (0.24-0.82) K/uL Eos # (Auto) 0.31 (0-0.50) K/uL Baso # (Auto) 0.08 (0-0.2) K/uL Immature Gran # (Auto) 0.03 H (0.00-0.02) K/uL Sodium (136-145) mmol/L Potassium (3.5-5.1) mmol/L Chloride (98-107) mmol/L Carbon Dioxide (21-32) mmol/L Anion Gap (3-11) BUN (6-23) mg/dl Creatinine (0.6-1.2) mg/dl Est Cr Clr Drug Dosing ml/min Est GFR ( Amer) ml/min Est GFR (Non-Af Amer) ml/min POC Glucose 124 H 148 H (70-99) mg/dl Fasting Glucose (70-99) mg/dl Calcium (8.5-10.1) mg/dl Phosphorus (2.5-4.9) mg/dl Magnesium (1.7-2.4) mg/dl Total Bilirubin (0.2-1.0) mg/dl AST (13-39) U/L ALT (7-52) U/L Alkaline Phosphatase (34-104) U/L Total Protein (6.0-8.3) gm/dl Albumin (3.4-5.0) gm/dl Globulin (2.5-4.0) gm/dl Albumin/Globulin Ratio (0.9-2) PG Care Time/CCT Total # of Minutes Spent Total Time Spent with Patient: Total time spent is greater than 50% in coordination of care (as documented) at patient's floor/unit and/or counseling patient: Coding Level of Care Code 63384 Subseq Hosp Care Lvl 2 Diagnoses GI bleed K92.2 Pyelonephritis N12 Bacteremia R78.81 Anemia D64.9 Acute metabolic encephalopathy G93.41 Elevated troponin R77.8 Chronic respiratory failure with hypoxia and hypercapnia J96.11; J96.12 Venous stasis ulcers of both lower extremities I83.019; I83.029; L97.919; L97.929 Seizure disorder G40.909 Diabetes mellitus, type II E11.9 Diabetes mellitus complication status: without complication Diabetes mellitus intermediate insulin use: without ad terminal makeup operator use Hypertension I10 Hypertension type: essential hypertension NICM (nonischemic cardiomyopathy) I42.8 Asthma J45.909 Asthma complication type: uncomplicated Asthma persistence: unspecified Asthma severity: unspecified severity ADRYAN (acute kidney injury) N17.9 (1) Diabetes mellitus, type II Diabetes mellitus complication status: without complication Diabetes mellitus intermediate insulin use: without intermediate use Qualified Code(s): E11.9 - Type 2 diabetes mellitus without complications (2) Hypertension Hypertension type: essential hypertension Qualified Code(s): I10 - Essential (primary) hypertension (3) Asthma Asthma complication type: uncomplicated Asthma persistence: unspecified Asthma severity: unspecified severity Qualified Code(s): J45.909 - Unspecified asthma, uncomplicated
[2022-06-08] MEDS: METOPROLOL SUCC 50MG EXT REL TAB PO SCH (10:07)
[2022-06-08] MEDS: LANTUS PER UNIT CHARGE SQ SCH ×2 (10:13→21:50)
[2022-06-08] MEDS: INSULIN ASPART PER UNIT SC SCH ×4 (10:13→21:50)
[2022-06-08] MEDS: TOPIRAMATE 100 MG TAB PO SCH ×2 (10:15→21:53)
[2022-06-08] MEDS: FUROSEMIDE 40 MG TAB PO SCH (10:15)
[2022-06-08] MEDS: levETIRAcetam 500 MG TAB PO SCH ×2 (10:16→21:52)
[2022-06-08] MEDS: DOCUSATE SODIUM/SENNA 50/8.6MG TAB PO SCH (10:16)
[2022-06-08] MEDS: PANTOprazole 40 MG TAB PO SCH ×2 (10:16→21:52)
[2022-06-08] MEDS: SPIRONOLACTONE 12.5 MG TAB PO SCH (10:17)
[2022-06-08] MEDS: cefTRIAXone SODIUM 2,000 MG in DEXTROSE 5% 50 ML IV SCH (10:17)
[2022-06-08] MEDS: NYSTATIN POWDER 15GM BTL EXT SCH ×2 (10:18→21:54)
[2022-06-08] MEDS: ATORVASTATIN 40 MG TAB PO SCH (21:54)
--- NOTE | 2022-06-09 07:48 | Hospitalist Progress Note ---
Date of Service June 09, 2022 Assessment & Plan (1) GI bleed: Plan: Admitted with Pyelonephritis/Bacteremia, hx HOSEA on oral iron supplements prior to admit and received Venofer IV while inpatient with improvement in hgb to 9.6 However had fall subsequently getting out of bed and developed hematoma/bleeding varicosity/blood loss and subsequently had episode of melanotic stools with drop in hemoglobin 06-03-2022 and now occult positive Given 2u PRBC, repeat hgb remains stable and no further bleeding reported Continue PPI PO BID, patient adamantly refusing EGD/c-scope. Discussed with daughter and no further bleeding/hgb stable and holding off Diet ordered Plan to possible resume ASA 81mg daily for tomorrow? Completing abx for pyelo/bacteremia 06/08, awaiting placement at rehab (2) Pyelonephritis: Plan: Bacteremic pyelonephritisE. coli in blood 05-24-2022; was on p.o. Bactrim after initial given acute kidney injury switched to Rocephin d/c abx after dose 06/08 to complete course while inpatient. Repeat bcx NGTD WBC wnl, afebrile (3) Bacteremia: Plan: 2nd to urinary source. of note, daughter who is caregiver states patient in power chair and does sit for extended periods of time in wet briefs despite being told about possibly getting UTI (4) Anemia: Plan: Hx HOSEA, to be on PO supplementation at home Hemoglobin is stabilized since Venofer IV x5, then hematoma/varicosity bleeding and requirement of 2u PRBC hgb stable on repeat Does NOT want endoscopy as outlined. 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 NOT target per discussion with CM will need continued encouragement given patient DOES not want rehab however is unsafe at home in current condition (6) Elevated troponin: Plan: At present nothing to suggest ACS ASA 81mg po daily held with bleeding and OR, will resume if no further bleeding in AM after 1 wk Continue Atorvastatin 40mg po daily Continue Metoprolol 50mg po daily (7) Chronic respiratory failure with hypoxia and hypercapnia: Plan: Baseline 2 L oxygenfollow Titrate to maintain sats/1L at rest typically more than sufficient to prevent worsening hypercapnia as in the past (8) Venous stasis ulcers of both lower extremities: Plan: S/p hematoma and drainage, debridement dressing changes as recommended by surgery; follow-up in wound center upon discharge. asked imani to revisit just given event occurred in hospital. will re-eval wounds with her tomorrow if able (9) Seizure disorder: Plan: Chronic. Stable Continue keppra, topamax hx noncompliance but stated has been getting these at home Levels for both in normal range, no evidence for seizure activity (10) Diabetes mellitus, type II: Plan: Sugars acceptableno change (11) Hypertension: Plan: Pressures in good rangeno change and typically low normal BPs (12) NICM (nonischemic cardiomyopathy): Plan: Compensated Continue Metoprolol 50mg, Spironolactone 12.5mg, ASA on hold due to GI bleeding and will hold for now/resume as able (last dose 05/31, consider resuming after 1 week reported GI bleeding on 06/03) No CP/SOB reported (13) Asthma: Plan: Chronic. Stable -Albuterol PRN -Continue home O2 as needed (14) ADRYAN (acute kidney injury): Plan: Bactrim stopped,; improved and back to baseline, completed abx as above Plan Abx completed 06/09 Updated daughter Yesenia 06/07 PT/OT continue to rec SNF. CM following and referrals sent but likely no bed until later this week/next week Admission and Anticipated Discharge Date Admission Date: May 24, 2022 Subjective Eval this morning. No further darkened stools reported by RNs overnight. Gilma states she feels good, eating/drinking without issue. Discussed done with antibiotics but working on strength at this point. Gilma states she wants to go home, discussed that was the hope but depending on time for search if not strong enough may need to consider this but won't discuss too much further to prevent upsetting Gilma. She also endorses she wants NO MORE surgeries at all. She denies any fever/chills, chest pain, shortness of breath, abdominal pain. She notes she his pretty low in the bed currently which does prevent her from taking deep breaths and is uncomfortable and was attempted to be repositioned and reported feeling much more comfortable. Review of Systems Review of Systems: All systems reviewed & are unremarkable except as noted in HPI & below Physical Exam Physical Exam: General: WD/WN slumped down in the bed, but NAD upon entry, pleasant and cooperative but anxious/upset whenever talking about rehab needs HEENT: pupils equal/reactive, thick neck, trachea midline without deviation, slight hearing diminished at baseline Resp: not tachypneic, no cough, lung sounds diminished in the bases, no faint end expiratory wheezing improved, on 2L NC CV: regular rhythm, rate (96bpm) no m/r/g, 1+ pedal edema with b/l leg dressings in place, c/d/i, no streaking erythema/evidence for infection currently, chronic venous stasis changes GI: +BS, soft, nontender MSK/Neuro; moves all extremities, no focal deficits, generalized weakness but improved some Skin: gluteal breakdown, covered, skin blanchable, b/l LE dressings in place Psych: alert to person/place, intellectual disability at baseline cognitively Results & Data Results & Data ([facility]) Vital Signs (Past 12 Hours) Vital Signs Temp Pulse Resp BP Pulse Ox O2 Del Method O2 Flow Rate 06/09/22 06:34 36.7 C 101 H 20 111/75 98 Room Air 06/09/22 03:00 93 H 06/08/22 21:07 36.4 C L 107 H 18 114/70 97 Nasal Cannula 2 Laboratory Results 06/09/22 06/08/22 06/08/22 Range/Units 08:01 20:34 17:19 POC Glucose 132 H 219 H 140 H (70-99) mg/dl 06/08/22 Range/Units 12:03 POC Glucose 189 H (70-99) mg/dl PG Care Time/CCT Total # of Minutes Spent Total Time Spent with Patient: Total time spent is greater than 50% in coordination of care (as documented) at patient's floor/unit and/or counseling patient: Coding Level of Care Code 78449 Subseq Hosp Care Lvl 2 Diagnoses GI bleed K92.2 Pyelonephritis N12 Bacteremia R78.81 Anemia D64.9 Acute metabolic encephalopathy G93.41 Elevated troponin R77.8 Chronic respiratory failure with hypoxia and hypercapnia J96.11; J96.12 Venous stasis ulcers of both lower extremities I83.019; I83.029; L97.919; L97.929 Seizure disorder G40.909 Diabetes mellitus, type II E11.9 Diabetes mellitus fpc insulin use: without 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 operator use Diabetes mellitus complication status: without complication Hypertension I10 Hypertension type: essential hypertension NICM (nonischemic cardiomyopathy) I42.8 Asthma J45.909 Asthma severity: unspecified severity Asthma persistence: unspecified Asthma complication type: uncomplicated ADRYAN (acute kidney injury) N17.9 (1) Diabetes mellitus, type II 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
[2022-06-09] MEDS: METOPROLOL SUCC 50MG EXT REL TAB PO SCH (08:20)
[2022-06-09] MEDS: NYSTATIN POWDER 15GM BTL EXT SCH ×2 (08:20→21:33)
[2022-06-09] MEDS: SPIRONOLACTONE 12.5 MG TAB PO SCH (08:20)
[2022-06-09] MEDS: PANTOprazole 40 MG TAB PO SCH ×2 (08:20→21:32)
[2022-06-09] MEDS: levETIRAcetam 500 MG TAB PO SCH ×2 (08:20→21:31)
[2022-06-09] MEDS: TOPIRAMATE 100 MG TAB PO SCH ×2 (08:20→21:32)
[2022-06-09] MEDS: FUROSEMIDE 40 MG TAB PO SCH (08:20)
[2022-06-09] MEDS: INSULIN ASPART PER UNIT SC SCH ×4 (09:07→21:34)
[2022-06-09] MEDS: LANTUS PER UNIT CHARGE SQ SCH ×2 (09:08→21:33)
[2022-06-09] MEDS: DOCUSATE SODIUM/SENNA 50/8.6MG TAB PO SCH (09:11)
[2022-06-09 10:52] LABS: Basophils # (auto) 0.07 K/uL (0-0.2); Basophils % (auto) 1.2 %; Eosinophils # (auto) 0.26 K/uL (0-0.50); Eosinophils % (auto) 4.6 %; Hematocrit (blood only) 34.7 % (34.1-44.9); Hemoglobin 10.7 g/dl (12.0-16.0); Immature Granulocytes # (auto) 0.01 K/uL (0.00-0.02); Immature Granulocytes % (auto) 0.2 %; Lymphocytes # (auto) 0.83 K/uL (1.2-3.4); Lymphocytes % (auto) 14.7 %; Mean Corpuscular Hemoglobin 26.9 pg (25.0-34.0); Mean Corpuscular Hgb Conc 30.8 g/dL (32.0-36.0); Mean Corpuscular Volume 87.2 fL (80.0-100.0); Mean Platelet Volume 10.3 fL (9.4-12.3); Monocytes # (auto) 0.55 K/uL (0.24-0.82); Monocytes % (auto) 9.8 %; Neutrophils # (auto) 3.91 K/uL (1.4-6.5); Neutrophils % (auto) 69.5 %; Platelet Count 230 K/uL (130-400); RDW Coefficient of Variation 16.4 % (11.5-14.5); RDW Standard Deviation 52.1 fL (36.4-46.3); Red Blood Count 3.98 M/uL (3.93-5.22); White Blood Count 5.63 K/ul (4.8-10.8)
[2022-06-09 11:19] LABS: Albumin Globulin Ratio 0.9 (0.9-2); Albumin Level 3.1 gm/dl (3.4-5.0); Bilirubin,Total 0.4 mg/dl (0.2-1.0); Calcium 9.2 mg/dl (8.5-10.1); Creatinine Clr Calc Pharmacy 62.6 ml/min; Est GFR (African American) 73.4 ml/min; Est GFR (Non-African American) 63.3 ml/min; Globulin 3.5 gm/dl (2.5-4.0); Magnesium 1.9 mg/dl (1.7-2.4); Phosphorus 3.4 mg/dl (2.5-4.9); Potassium 3.4 mmol/L (3.5-5.1); Total Protein 6.6 gm/dl (6.0-8.3)
[2022-06-09] MEDS ORDERED: POTASSIUM CHLORIDE CRTAB 20 MEQ TABCR PO STA (11:35)
[2022-06-09] MEDS ORDERED: FUROSEMIDE 20 MG TAB PO ONE (11:36)
[2022-06-09] MEDS: ATORVASTATIN 40 MG TAB PO SCH (21:32)
[2022-06-10 08:18] LABS: Hematocrit (blood only) 32.7 % (34.1-44.9); Hemoglobin 10.4 g/dl (12.0-16.0); Mean Corpuscular Hemoglobin 27.2 pg (25.0-34.0); Mean Corpuscular Hgb Conc 31.8 g/dL (32.0-36.0); Mean Corpuscular Volume 85.6 fL (80.0-100.0); Mean Platelet Volume 10.8 fL (9.4-12.3); Nucleated RBC # (auto) 0.03 K/uL (0-0); Nucleated RBC % (auto) 0.5 %; Platelet Count 229 K/uL (130-400); RDW Coefficient of Variation 16.6 % (11.5-14.5); RDW Standard Deviation 51.8 fL (36.4-46.3); Red Blood Count 3.82 M/uL (3.93-5.22); White Blood Count 6.26 K/ul (4.8-10.8)
[2022-06-10] MEDS: DOCUSATE SODIUM/SENNA 50/8.6MG TAB PO SCH (08:36)
[2022-06-10] MEDS: METOPROLOL SUCC 50MG EXT REL TAB PO SCH (08:38)
[2022-06-10] MEDS: levETIRAcetam 500 MG TAB PO SCH ×2 (08:38→20:32)
[2022-06-10] MEDS: SPIRONOLACTONE 12.5 MG TAB PO SCH (08:38)
[2022-06-10] MEDS: NYSTATIN POWDER 15GM BTL EXT SCH ×2 (08:38→20:32)
[2022-06-10] MEDS: TOPIRAMATE 100 MG TAB PO SCH ×2 (08:38→20:32)
[2022-06-10] MEDS: FUROSEMIDE 40 MG TAB PO SCH (08:38)
[2022-06-10] MEDS: PANTOprazole 40 MG TAB PO SCH ×2 (08:38→20:32)
[2022-06-10 08:41] LABS: Albumin Globulin Ratio 0.9 (0.9-2); BUN Creatinine Ratio 22.2 (10-20); Bilirubin,Total 0.5 mg/dl (0.2-1.0); Calcium 9.2 mg/dl (8.5-10.1); Creatinine Clr Calc Pharmacy 66.1 ml/min; Est GFR (African American) 78.3 ml/min; Est GFR (Non-African American) 67.6 ml/min; Globulin 3.3 gm/dl (2.5-4.0); Total Protein 6.3 gm/dl (6.0-8.3)
[2022-06-10] MEDS: INSULIN ASPART PER UNIT SC SCH ×4 (08:49→20:46)
[2022-06-10] MEDS: LANTUS PER UNIT CHARGE SQ SCH ×2 (08:50→20:46)
--- NOTE | 2022-06-10 11:09 | Hospitalist Progress Note ---
Date of Service June 10, 2022 Assessment & Plan (1) Pyelonephritis: Plan: Bacteremic pyelonephritisE. coli in blood 05-24-2022; was on p.o. Bactrim after initial given acute kidney injury switched to Rocephin Completed course abx 06/08 with Rocephin. Repeat BCx NGTD WBC wnl, afebrile Awaiting placement Continue PT/OT while inpatient however daughter Kg stated her and son in agreement needing rehab even if able to pivot as patient significant other not at home 23/05 and worried about falls (2) GI bleed: Plan: Admitted with Pyelonephritis/Bacteremia, hx HOSEA on oral iron supplements prior to admit and received Venofer IV while inpatient with improvement in hgb to 9.6 However had fall subsequently getting out of bed and developed hematoma/bleeding varicosity/blood loss and subsequently had episode of melanotic stools with drop in hemoglobin 06-03-2022 +fecal occult Given 2u PRBC, continue PPI BID Pt refusing endoscopy, discussed with family and holding off Consider resuming ASA tomorrow given no further bleeding (3) Bacteremia: Plan: 2nd to urinary source. of note, daughter who is caregiver states patient in power chair and does sit for extended periods of time in wet briefs despite being told about possibly getting UTI (4) Anemia: Plan: Hx HOSEA, to be on PO supplementation at home Hemoglobin is stabilized since Venofer IV x5, then hematoma/varicosity bleeding and requirement of 2u PRBC hgb stable on repeat and improved Does NOT want endoscopy as outlined. 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 NOT target per discussion with CM will need continued encouragement given patient DOES not want rehab however is unsafe at home in current condition and family wanting rehab. Awaiting bed (6) Elevated troponin: Plan: At present nothing to suggest ACS, likely 2nd to demand from infection/bacteremia as above ASA 81mg po daily held with bleeding and OR, will resume if no further bleeding in AM after 1 wk Continue Atorvastatin 40mg po daily Continue Metoprolol 50mg po daily NO CHEST PAIN (7) Chronic respiratory failure with hypoxia and hypercapnia: Plan: Baseline 2 L oxygenfollow Titrate to maintain sats/1L at rest typically more than sufficient to prevent worsening hypercapnia as in the past (8) Venous stasis ulcers of both lower extremities: Plan: S/p hematoma and drainage, debridement dressing changes as recommended by surgery; changed by wound RN while present during examination Will need continued wound care at follow up (9) Seizure disorder: Plan: Chronic. Stable Continue keppra, topamax hx noncompliance but stated has been getting these at home Levels for both in normal range, no evidence for seizure activity (10) Diabetes mellitus, type II: Plan: Sugars acceptableno change (11) Hypertension: Plan: Pressures in good rangeno change and typically low normal BPs Of note, did get extra dose of lasix 20mg PO x 1 06/09, Bps improved and stable and will monitor (12) NICM (nonischemic cardiomyopathy): Plan: Compensated Continue Metoprolol 50mg, Spironolactone 12.5mg, ASA on hold due to GI bleeding and will hold for now/resume as able (last dose 05/31, consider resuming after 1 week reported GI bleeding on 06/03) No CP/SOB reported Resuming ASA for AM (13) Asthma: Plan: Chronic. Stable -Albuterol PRN -Continue home O2 as needed (14) ADRYAN (acute kidney injury): Plan: Bactrim stopped,; improved and back to baseline, completed abx as above Plan Abx completed 06/09 Updated daughter Yesenia 06/07, 06/08, 06/09 --> still wanting to pursue rehab. She states to not inform Gilma until we have a bed and call her in advance when setting up transport so that she doesn't fight staff to go to SNF CM following, no beds this week Admission and Anticipated Discharge Date Admission Date: May 24, 2022 Supervising Physician Co-Signing Physician Notes PA Supervision Note: I did not personally see or examine the patient today, but I verified all macias points of ZULEMA Michaud's assessment and plan with the following exceptions/additions: None Subjective Eval this morning, wound RN changing dressings. Patient with history of hyperalgesic sensation to any touch, complaints of not wanting to be touch.Discussed importance to het clean. She states she's supposed to be home tomorrow for her birthday green party. Discussed will check with Kg to see if she can see how she's doing to consider home. Patient with multiple BMs this morning, denied any bleeding. No chest pain or shortness of breath. Discussed with Yesenia and she is still stating she does not feel comfortable with her going home as gentleman/significant other at home isn't there 23/05. Review of Systems Review of Systems: All systems reviewed & are unremarkable except as noted in HPI & below Physical Exam Physical Exam: General: WD/WN ID female sitting in bed, NAD, wanting to go home for a green party HEENT: pupils equal/reactive, thick neck, trachea midline without deviation, hard of hearing at time Resp: not tachypneic, no cough, lung sounds diminished in the bases, no w/c, on chronic 2L CV: regular rhythm, rate (96bpm) no m/r/g, trace edema (almost resolved), GI: +BS, +distended, soft, nontender MSK/Neuro; moves all extremities, no focal deficits, generalized weakness but improving Skin: gluteal breakdown, covered, skin blanchable, b/l dressings removed by wound RN -- healing lesions to lateral aspect and anterior LLE, lateral aspect RLE, hyperalgesic to the touch, NVI Psych: alert to person/place,time, poor insight, intellectual disability at baseline cognitively Results & Data Results & Data ([facility]) Vital Signs (Past 12 Hours) Vital Signs Temp Pulse Pulse Resp BP Pulse Ox O2 Del Method 06/10/22 10:45 36.7 C 80 18 122/74 99 Nasal Cannula 06/10/22 08:35 Nasal Cannula 06/10/22 08:18 36.4 C L 76 18 110/72 98 Room Air 06/10/22 08:26 36.6 C 78 18 112/76 99 Nasal Cannula O2 Flow Rate 06/10/22 10:45 2 06/10/22 08:35 1 06/10/22 08:18 06/10/22 08:26 2 Laboratory Results 06/10/22 06/10/22 06/10/22 Range/Units 08:18 08:02 08:02 WBC 6.26 (4.8-10.8) K/ul RBC 3.82 L (3.93-5.22) M/uL Hgb 10.4 L (12.0-16.0) g/dl Hct 32.7 L (34.1-44.9) % MCV 85.6 (80.0-100.0) fL MCH 27.2 (25.0-34.0) pg MCHC 31.8 L (32.0-36.0) g/dL RDW Std Deviation 51.8 H (36.4-46.3) fL RDW Coeff of Ewa 16.6 H (11.5-14.5) % Plt Count 229 (130-400) K/uL MPV 10.8 (9.4-12.3) fL Absolute Nucleated RBC 0.03 H (0-0) K/uL Nucleated RBC % (auto) 0.5 % Peripher Smr Path Cons Pending Sodium 136 (136-145) mmol/L Potassium 5.0 D (3.5-5.1) mmol/L Chloride 102 (98-107) mmol/L Carbon Dioxide 28 (21-32) mmol/L Anion Gap 6 (3-11) BUN 20 (6-23) mg/dl Creatinine 0.90 (0.6-1.2) mg/dl Est Cr Clr Drug Dosing 66.1 ml/min Est GFR ( Amer) 78.3 ml/min Est GFR (Non-Af Amer) 67.6 ml/min BUN/Creatinine Ratio 22.2 H (10-20) Glucose 125 H (70-99(Fasting)) mg/dl POC Glucose 139 H (70-99) mg/dl Fasting Glucose (70-99) mg/dl Calcium 9.2 (8.5-10.1) mg/dl Phosphorus (2.5-4.9) mg/dl Magnesium (1.7-2.4) mg/dl Total Bilirubin 0.5 (0.2-1.0) mg/dl AST 24 (13-39) U/L ALT 21 (7-52) U/L Alkaline Phosphatase 139 H (34-104) U/L Total Protein 6.3 (6.0-8.3) gm/dl Albumin 3.0 L (3.4-5.0) gm/dl Globulin 3.3 (2.5-4.0) gm/dl Albumin/Globulin Ratio 0.9 (0.9-2) 08/08/2106/09/22 06/09/22 Range/Units 21:12 17:17 12:22 WBC (4.8-10.8) K/ul RBC (3.93-5.22) M/uL Hgb (12.0-16.0) g/dl Hct (34.1-44.9) % MCV (80.0-100.0) fL MCH (25.0-34.0) pg MCHC (32.0-36.0) g/dL RDW Std Deviation (36.4-46.3) fL RDW Coeff of Ewa (11.5-14.5) % Plt Count (130-400) K/uL MPV (9.4-12.3) fL Absolute Nucleated RBC (0-0) K/uL Nucleated RBC % (auto) % Peripher Smr Path Cons Sodium (136-145) mmol/L Potassium (3.5-5.1) mmol/L Chloride (98-107) mmol/L Carbon Dioxide (21-32) mmol/L Anion Gap (3-11) BUN (6-23) mg/dl Creatinine (0.6-1.2) mg/dl Est Cr Clr Drug Dosing ml/min Est GFR ( Amer) ml/min Est GFR (Non-Af Amer) ml/min BUN/Creatinine Ratio (10-20) Glucose (70-99(Fasting)) mg/dl POC Glucose 157 H 126 H 143 H (70-99) mg/dl Fasting Glucose (70-99) mg/dl Calcium (8.5-10.1) mg/dl Phosphorus (2.5-4.9) mg/dl Magnesium (1.7-2.4) mg/dl Total Bilirubin (0.2-1.0) mg/dl AST (13-39) U/L ALT (7-52) U/L Alkaline Phosphatase (34-104) U/L Total Protein (6.0-8.3) gm/dl Albumin (3.4-5.0) gm/dl Globulin (2.5-4.0) gm/dl Albumin/Globulin Ratio (0.9-2) 06/09/22 Range/Units 10:34 WBC (4.8-10.8) K/ul RBC (3.93-5.22) M/uL Hgb (12.0-16.0) g/dl Hct (34.1-44.9) % MCV (80.0-100.0) fL MCH (25.0-34.0) pg MCHC (32.0-36.0) g/dL RDW Std Deviation (36.4-46.3) fL RDW Coeff of Ewa (11.5-14.5) % Plt Count (130-400) K/uL MPV (9.4-12.3) fL Absolute Nucleated RBC (0-0) K/uL Nucleated RBC % (auto) % Peripher Smr Path Cons Sodium 138 (136-145) mmol/L Potassium 3.4 L (3.5-5.1) mmol/L Chloride 101 (98-107) mmol/L Carbon Dioxide 31 (21-32) mmol/L Anion Gap 6 (3-11) BUN 19 (6-23) mg/dl Creatinine 0.95 (0.6-1.2) mg/dl Est Cr Clr Drug Dosing 62.6 ml/min Est GFR ( Amer) 73.4 ml/min Est GFR (Non-Af Amer) 63.3 ml/min BUN/Creatinine Ratio (10-20) Glucose (70-99(Fasting)) mg/dl POC Glucose (70-99) mg/dl Fasting Glucose 178 H (70-99) mg/dl Calcium 9.2 (8.5-10.1) mg/dl Phosphorus 3.4 (2.5-4.9) mg/dl Magnesium 1.9 (1.7-2.4) mg/dl Total Bilirubin 0.4 (0.2-1.0) mg/dl AST 29 (13-39) U/L ALT 25 (7-52) U/L Alkaline Phosphatase 143 H (34-104) U/L Total Protein 6.6 (6.0-8.3) gm/dl Albumin 3.1 L (3.4-5.0) gm/dl Globulin 3.5 (2.5-4.0) gm/dl Albumin/Globulin Ratio 0.9 (0.9-2) PG Care Time/CCT Total # of Minutes Spent Total Time Spent with Patient: Total time spent is greater than 50% in coordination of care (as documented) at patient's floor/unit and/or counseling patient: Coding Level of Care Code 12843 Subseq Hosp Care Lvl 2 Diagnoses Pyelonephritis N12 GI bleed K92.2 Bacteremia R78.81 Anemia D64.9 Acute metabolic encephalopathy G93.41 Elevated troponin R77.8 Chronic respiratory failure with hypoxia and hypercapnia J96.11; J96.12 Venous stasis ulcers of both lower extremities I83.019; I83.029; L97.919; L97.929 Seizure disorder G40.909 Diabetes mellitus, type II E11.9 Diabetes mellitus complication status: without complication 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 terminologist insulin use: without medical terminologist use Hypertension I10 Hypertension type: essential hypertension NICM (nonischemic cardiomyopathy) I42.8 Asthma J45.909 Asthma complication type: uncomplicated Asthma persistence: unspecified Asthma severity: unspecified severity ADRYAN (acute kidney injury) N17.9 (1) Diabetes mellitus, type II Diabetes mellitus complication status: without complication Diabetes mellitus assisted insulin use: without medical terminologist use Qualified Code(s): E11.9 - Type 2 diabetes mellitus without complications (2) Hypertension Hypertension type: essential hypertension Qualified Code(s): I10 - Essential (primary) hypertension (3) Asthma Asthma complication type: uncomplicated Asthma persistence: unspecified Asthma severity: unspecified severity Qualified Code(s): J45.909 - Unspecified asthma, uncomplicated
[2022-06-10] MEDS ORDERED: FUROSEMIDE 40 MG TAB PO ONE (17:00)
[2022-06-10] MEDS: ATORVASTATIN 40 MG TAB PO SCH (20:31)
[2022-06-10] MEDS: ACETAMINOPHEN 325 MG TAB PO PRN (20:39)
--- NOTE | 2022-06-11 07:15 | Hospitalist Progress Note ---
Date of Service June 11, 2022 Assessment & Plan (1) Pyelonephritis: Plan: Bacteremic pyelonephritisE. coli in blood 05-24-2022; was on p.o. Bactrim after initial given acute kidney injury switched to Rocephin Completed course abx 06/08 with Rocephin. Repeat BCx NGTD WBC wnl, afebrile Awaiting placement Continue PT/OT while inpatient however daughter Kg stated her and son in agreement needing rehab even if able to pivot as patient significant other not at home 23/05 and worried about falls Did ask for her to come and visit. Will need to expand search to other facilities as well (2) GI bleed: Plan: Admitted with Pyelonephritis/Bacteremia, hx HOSEA on oral iron supplements prior to admit and received Venofer IV while inpatient with improvement in hgb to 9.6 However had fall subsequently getting out of bed and developed hematoma/bleeding varicosity/blood loss and subsequently had episode of melanotic stools with drop in hemoglobin 06-03-2022 +fecal occult Given 2u PRBC, continue PPI BID Pt refusing endoscopy, discussed with family and holding off Resumed ASA and no further bleeding reported, hgb stable (3) Bacteremia: Plan: 2nd to urinary source. of note, daughter who is caregiver states patient in power chair and does sit for extended periods of time in wet briefs despite being told about possibly getting UTI (4) Anemia: Plan: Hx HOSEA, to be on PO supplementation at home Hemoglobin is stabilized since Venofer IV x5, then hematoma/varicosity bleeding and requirement of 2u PRBC hgb stable on repeat and improved Does NOT want endoscopy as outlined. 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 NOT target per discussion with CM will need continued encouragement given patient DOES not want rehab however is unsafe at home in current condition and family wanting rehab. Awaiting bed (6) Elevated troponin: Plan: At present nothing to suggest ACS, likely 2nd to demand from infection/bacteremia as above ASA 81mg po daily held with bleeding and OR -> resumed Continue Atorvastatin 40mg po daily Continue Metoprolol 50mg po daily NO CHEST PAIN (7) Chronic respiratory failure with hypoxia and hypercapnia: Plan: Baseline 2 L oxygenfollow Titrate to maintain sats/1L at rest typically more than sufficient to prevent worsening hypercapnia as in the past *Also noted elevated ALP level and had given extra dose of lasix 40mg PO x 1 on 06/10 with improvement in ALP and improvement in appetite (reported feeling full in days past) and Cr stable, additional dose 40mg PO x 1 this afternoon. Suspect from IVF during acute blood loss from hematomas and requirement for surgical debridement and 2u PRBC (8) Venous stasis ulcers of both lower extremities: Plan: S/p hematoma and drainage, debridement dressing changes as recommended by surgery; changed by wound RN while present during examination Will need continued wound care at follow up (9) Seizure disorder: Plan: Chronic. Stable Continue keppra, topamax hx noncompliance but stated has been getting these at home Levels for both in normal range, no evidence for seizure activity (10) Diabetes mellitus, type II: Plan: Sugars acceptableno change (11) Hypertension: Plan: Pressures in good rangeno change and typically low normal BPs Of note, did get extra dose of lasix 20mg PO x 1 06/09, 06/10 40mg for +hepatojug reflex however didn't appear acute CHF. Will again given 40mg PO x 1 BP stable, asymptomatic and typically lower Bps improved and stable and will monitor (12) NICM (nonischemic cardiomyopathy): Plan: Compensated Continue Metoprolol 50mg, Spironolactone 12.5mg, ASA on hold due to GI bleeding and will hold for now/resume as able (last dose 05/31, consider resuming after 1 week reported GI bleeding on 06/03) No CP/SOB reported Resuming ASA for AM (13) Asthma: Plan: Chronic. Stable -Albuterol PRN -Continue home O2 as needed (14) ADRYAN (acute kidney injury): Plan: Bactrim stopped,; improved and back to baseline, completed abx as above Plan Abx completed 06/09 Updated daughter Yesenia 06/07, 06/08, 06/09 --> still wanting to pursue rehab. She states to not inform Gilma until we have a bed and call her in advance when setting up transport so that she doesn't fight staff to go to SNF CM following, no beds this week Admission and Anticipated Discharge Date Admission Date: May 24, 2022 Supervising Physician Co-Signing Physician Notes ZULEMA Supervision Note: I did not personally see or examine the patient today, but I verified all macias points of ZULEMA Michaud's assessment and plan with the following exceptions/additions: None Subjective Eval this morning, continued improvement in appetite and will continue lasix again this evening given improvement in ALP. No further bleeding reported. Patient continues to voice she wants to go home. Discussed I talked with Kg and asked her to visit to see how she is doing to consider. No fever/chills/chest pain, shortness of breath, abdominal pain, nausea or vomiting. Questions/concerns addressed. Review of Systems Review of Systems: All systems reviewed & are unremarkable except as noted in HPI & below Physical Exam Physical Exam: General: WD/WN ID female sitting in bed, NAD, wanting to go home for a libertarian HEENT: pupils equal/reactive, thick neck, trachea midline without deviation, hard of hearing at time, Resp: not tachypneic, no cough, lung sounds diminished in the bases, no w/c, on chronic 2L 97% CV: regular rhythm, rate (96bpm) no m/r/g, trace edema (almost resolved), GI: +BS, , soft, nontender, +hepatojugular reflex MSK/Neuro; moves all extremities, no focal deficits, generalized weakness but improving Skin: gluteal breakdown, covered, skin blanchable, b/l dressings -- healing les ions to b/l LE lesions, hyperalgesic, NVI Psych: alert to person/place,time, poor insight, intellectual disability at baseline cognitively Results & Data Results & Data ([facility]) Vital Signs (Past 12 Hours) Vital Signs Temp Pulse Resp BP Pulse Ox O2 Del Method O2 Flow Rate 06/11/22 06:22 36.6 C 78 20 101/67 99 Nasal Cannula 2.0 06/11/22 01:39 Nasal Cannula 2 06/10/22 22:21 36.7 C 71 20 94/62 L 98 Nasal Cannula 2.0 Laboratory Results 06/11/22 06/11/22 06/11/22 Range/Units 08:00 07:46 07:46 WBC 4.81 (4.8-10.8) K/ul RBC 3.77 L (3.93-5.22) M/uL Hgb 10.2 L (12.0-16.0) g/dl Hct 32.5 L (34.1-44.9) % MCV 86.2 (80.0-100.0) fL MCH 27.1 (25.0-34.0) pg MCHC 31.4 L (32.0-36.0) g/dL RDW Std Deviation 51.1 H (36.4-46.3) fL RDW Coeff of Ewa 16.3 H (11.5-14.5) % Plt Count 209 (130-400) K/uL MPV 10.3 (9.4-12.3) fL Peripher Smr Path Cons Sodium 138 (136-145) mmol/L Potassium 3.4 L D (3.5-5.1) mmol/L Chloride 99 (98-107) mmol/L Carbon Dioxide 34 H (21-32) mmol/L Anion Gap 5 (3-11) BUN 19 (6-23) mg/dl Creatinine 0.96 (0.6-1.2) mg/dl Est Cr Clr Drug Dosing 62.0 ml/min Est GFR ( Amer) 72.4 ml/min Est GFR (Non-Af Amer) 62.5 ml/min BUN/Creatinine Ratio 19.8 (10-20) Glucose 119 H (70-99(Fasting)) mg/dl POC Glucose 126 H (70-99) mg/dl Calcium 9.0 (8.5-10.1) mg/dl Magnesium 2.0 (1.7-2.4) mg/dl Total Bilirubin 0.5 (0.2-1.0) mg/dl AST 18 (13-39) U/L ALT 18 (7-52) U/L Alkaline Phosphatase 127 H (34-104) U/L Total Protein 6.2 (6.0-8.3) gm/dl Albumin 3.0 L (3.4-5.0) gm/dl Globulin 3.2 (2.5-4.0) gm/dl Albumin/Globulin Ratio 0.9 (0.9-2) 06/10/22 06/10/22 06/10/22 Range/Units 20:31 17:11 12:17 WBC (4.8-10.8) K/ul RBC (3.93-5.22) M/uL Hgb (12.0-16.0) g/dl Hct (34.1-44.9) % MCV (80.0-100.0) fL MCH (25.0-34.0) pg MCHC (32.0-36.0) g/dL RDW Std Deviation (36.4-46.3) fL RDW Coeff of Ewa (11.5-14.5) % Plt Count (130-400) K/uL MPV (9.4-12.3) fL Peripher Smr Path Cons Sodium (136-145) mmol/L Potassium (3.5-5.1) mmol/L Chloride (98-107) mmol/L Carbon Dioxide (21-32) mmol/L Anion Gap (3-11) BUN (6-23) mg/dl Creatinine (0.6-1.2) mg/dl Est Cr Clr Drug Dosing ml/min Est GFR ( Amer) ml/min Est GFR (Non-Af Amer) ml/min BUN/Creatinine Ratio (10-20) Glucose (70-99(Fasting)) mg/dl POC Glucose 160 H 123 H 119 H (70-99) mg/dl Calcium (8.5-10.1) mg/dl Magnesium (1.7-2.4) mg/dl Total Bilirubin (0.2-1.0) mg/dl AST (13-39) U/L ALT (7-52) U/L Alkaline Phosphatase (34-104) U/L Total Protein (6.0-8.3) gm/dl Albumin (3.4-5.0) gm/dl Globulin (2.5-4.0) gm/dl Albumin/Globulin Ratio (0.9-2) 06/10/22 Range/Units 08:02 WBC (4.8-10.8) K/ul RBC (3.93-5.22) M/uL Hgb (12.0-16.0) g/dl Hct (34.1-44.9) % MCV (80.0-100.0) fL MCH (25.0-34.0) pg MCHC (32.0-36.0) g/dL RDW Std Deviation (36.4-46.3) fL RDW Coeff of Ewa (11.5-14.5) % Plt Count (130-400) K/uL MPV (9.4-12.3) fL Peripher Smr Path Cons Sodium (136-145) mmol/L Potassium (3.5-5.1) mmol/L Chloride (98-107) mmol/L Carbon Dioxide (21-32) mmol/L Anion Gap (3-11) BUN (6-23) mg/dl Creatinine (0.6-1.2) mg/dl Est Cr Clr Drug Dosing ml/min Est GFR ( Amer) ml/min Est GFR (Non-Af Amer) ml/min BUN/Creatinine Ratio (10-20) Glucose (70-99(Fasting)) mg/dl POC Glucose (70-99) mg/dl Calcium (8.5-10.1) mg/dl Magnesium (1.7-2.4) mg/dl Total Bilirubin (0.2-1.0) mg/dl AST (13-39) U/L ALT (7-52) U/L Alkaline Phosphatase (34-104) U/L Total Protein (6.0-8.3) gm/dl Albumin (3.4-5.0) gm/dl Globulin (2.5-4.0) gm/dl Albumin/Globulin Ratio (0.9-2) PG Care Time/CCT Total # of Minutes Spent Total Time Spent with Patient: Total time spent is greater than 50% in coordination of care (as documented) at patient's floor/unit and/or counseling patient: Coding Level of Care Code 66282 Subseq Hosp Care Lvl 2 Diagnoses Pyelonephritis N12 GI bleed K92.2 Bacteremia R78.81 Anemia D64.9 Acute metabolic encephalopathy G93.41 Elevated troponin R77.8 Chronic respiratory failure with hypoxia and hypercapnia J96.11; J96.12 Venous stasis ulcers of both lower extremities I83.019; I83.029; L97.919; L97.929 Seizure disorder G40.909 Diabetes mellitus, type II E11.9 Diabetes mellitus complication status: without complication Diabetes mellitus oysterman insulin use: without halfway use Hypertension I10 Hypertension type: essential hypertension NICM (nonischemic cardiomyopathy) I42.8 Asthma J45.909 Asthma complication type: uncomplicated Asthma persistence: unspecified Asthma severity: unspecified severity ADRYAN (acute kidney injury) N17.9 (1) Diabetes mellitus, type II Diabetes mellitus complication status: without complication Diabetes mellitus halfway insulin use: without oysterman use Qualified Code(s): E11.9 - Type 2 diabetes mellitus without complications (2) Hypertension Hypertension type: essential hypertension Qualified Code(s): I10 - Essential (primary) hypertension (3) Asthma Asthma complication type: uncomplicated Asthma persistence: unspecified Asthma severity: unspecified severity Qualified Code(s): J45.909 - Unspecified asthma, uncomplicated
[2022-06-11 08:00] LABS: Hematocrit (blood only) 32.5 % (34.1-44.9); Hemoglobin 10.2 g/dl (12.0-16.0); Mean Corpuscular Hemoglobin 27.1 pg (25.0-34.0); Mean Corpuscular Hgb Conc 31.4 g/dL (32.0-36.0); Mean Corpuscular Volume 86.2 fL (80.0-100.0); Mean Platelet Volume 10.3 fL (9.4-12.3); Platelet Count 209 K/uL (130-400); RDW Coefficient of Variation 16.3 % (11.5-14.5); RDW Standard Deviation 51.1 fL (36.4-46.3); Red Blood Count 3.77 M/uL (3.93-5.22); White Blood Count 4.81 K/ul (4.8-10.8)
[2022-06-11 08:32] LABS: Albumin Globulin Ratio 0.9 (0.9-2); BUN Creatinine Ratio 19.8 (10-20); Bilirubin,Total 0.5 mg/dl (0.2-1.0); Est GFR (African American) 72.4 ml/min; Est GFR (Non-African American) 62.5 ml/min; Globulin 3.2 gm/dl (2.5-4.0); Potassium 3.4 mmol/L (3.5-5.1); Total Protein 6.2 gm/dl (6.0-8.3)
[2022-06-11] MEDS: ASPIRIN 81 MG ECTAB PO SCH (09:31)
[2022-06-11] MEDS: FUROSEMIDE 40 MG TAB PO SCH (09:33)
[2022-06-11] MEDS: levETIRAcetam 500 MG TAB PO SCH ×2 (09:34→21:40)
[2022-06-11] MEDS: NYSTATIN POWDER 15GM BTL EXT SCH ×2 (09:34→21:42)
[2022-06-11] MEDS: METOPROLOL SUCC 50MG EXT REL TAB PO SCH (09:34)
[2022-06-11] MEDS: PANTOprazole 40 MG TAB PO SCH ×2 (09:35→21:40)
[2022-06-11] MEDS: TOPIRAMATE 100 MG TAB PO SCH ×2 (09:35→21:40)
[2022-06-11] MEDS: SPIRONOLACTONE 12.5 MG TAB PO SCH (09:35)
[2022-06-11] MEDS: LANTUS PER UNIT CHARGE SQ SCH ×2 (09:48→21:40)
[2022-06-11] MEDS: INSULIN ASPART PER UNIT SC SCH ×4 (09:48→21:40)
[2022-06-11] MEDS: DOCUSATE SODIUM/SENNA 50/8.6MG TAB PO SCH (09:54)
[2022-06-11] MEDS ORDERED: POTASSIUM CHLORIDE CRTAB 20 MEQ TABCR PO STA (10:24)
[2022-06-11] MEDS ORDERED: FUROSEMIDE 40 MG TAB PO ONE (17:00)
[2022-06-11] MEDS: ATORVASTATIN 40 MG TAB PO SCH (21:39)
[2022-06-12] MEDS: FUROSEMIDE 40 MG TAB PO SCH (08:03)
[2022-06-12] MEDS: PANTOprazole 40 MG TAB PO SCH ×2 (08:03→20:56)
[2022-06-12] MEDS: ASPIRIN 81 MG ECTAB PO SCH (08:03)
[2022-06-12] MEDS: TOPIRAMATE 100 MG TAB PO SCH ×2 (08:03→20:57)
[2022-06-12] MEDS: SPIRONOLACTONE 12.5 MG TAB PO SCH (08:03)
[2022-06-12] MEDS: levETIRAcetam 500 MG TAB PO SCH ×2 (08:03→20:57)
[2022-06-12] MEDS: METOPROLOL SUCC 50MG EXT REL TAB PO SCH (08:03)
[2022-06-12] MEDS: NYSTATIN POWDER 15GM BTL EXT SCH ×2 (08:04→20:57)
[2022-06-12 09:33] LABS: Albumin Globulin Ratio 0.9 (0.9-2); Albumin Level 3.2 gm/dl (3.4-5.0); BUN Creatinine Ratio 20.4 (10-20); Bilirubin,Total 0.5 mg/dl (0.2-1.0); Calcium 9.1 mg/dl (8.5-10.1); Est GFR (African American) 75.3 ml/min; Est GFR (Non-African American) 64.9 ml/min; Globulin 3.5 gm/dl (2.5-4.0); Potassium 3.3 mmol/L (3.5-5.1); Total Protein 6.7 gm/dl (6.0-8.3)
[2022-06-12] MEDS: INSULIN ASPART PER UNIT SC SCH ×4 (09:59→20:58)
[2022-06-12] MEDS: LANTUS PER UNIT CHARGE SQ SCH ×2 (10:00→20:56)
[2022-06-12] MEDS: DOCUSATE SODIUM/SENNA 50/8.6MG TAB PO SCH (10:00)
--- NOTE | 2022-06-12 15:26 | Hospitalist Progress Note ---
Date of Service June 12, 2022 Assessment & Plan (1) Pyelonephritis: Plan: Bacteremic pyelonephritisE. coli in blood 05-24-2022; was on p.o. Bactrim after initial given acute kidney injury switched to Rocephin Completed course abx 06/08 with Rocephin. Repeat BCx NGTD WBC wnl, afebrile Awaiting placement Continue PT/OT while inpatient however daughter Kg stated her and son in agreement needing rehab even if able to pivot as patient significant other not at home 23/05 and worried about falls Did ask for her to come and visit. Will need to expand search to other facilities as well-CM did this (2) GI bleed: Plan: Admitted with Pyelonephritis/Bacteremia, hx HOSEA on oral iron supplements prior to admit and received Venofer IV while inpatient with improvement in hgb to 9.6 However had fall subsequently getting out of bed and developed hematoma/bleeding varicosity/blood loss and subsequently had episode of melanotic stools with drop in hemoglobin 06-03-2022 +fecal occult Given 2u PRBC, continue PPI BID Pt refusing endoscopy, discussed with family and holding off Resumed ASA and no further bleeding reported, hgb stable (3) Hypokalemia: Plan: replace with po KCl today follow BMP and Mag in AM (4) Bacteremia: Plan: 2nd to urinary source resolved (5) Anemia: Plan: Hx HOSEA, to be on PO supplementation at home Hemoglobin is stabilized since Venofer IV x5, then hematoma/varicosity bleeding and requirement of 2u PRBC hgb stable on repeat and improved Does NOT want endoscopy as outlined. 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 NOT target per discussion with CM will need continued encouragement given patient DOES not want rehab however is unsafe at home in current condition and family wanting rehab. Awaiting bed (7) Elevated troponin: Plan: At present nothing to suggest ACS, likely 2nd to demand from infection/bacteremia as above ASA 81mg po daily held with bleeding and OR -> resumed Continue Atorvastatin 40mg po daily Continue Metoprolol 50mg po daily NO CHEST PAIN (8) Chronic respiratory failure with hypoxia and hypercapnia: Plan: Baseline 2 L oxygenfollow Titrate to maintain sats/1L at rest typically more than sufficient to prevent worsening hypercapnia as in the past (9) Venous stasis ulcers of both lower extremities: Plan: S/p hematoma and drainage, debridement after had fall at hospital and scraped legs dressing changes as recommended by surgery; changed by wound RN while present during examination Will need continued wound care at follow up (10) Seizure disorder: Plan: Chronic. Stable Continue keppra, topamax hx noncompliance but stated has been getting these at home Levels for both in normal range, no evidence for seizure activity (11) Diabetes mellitus, type II: Plan: Sugars acceptableno change continue basal and bolus insulin (12) Hypertension: Plan: Pressures in good rangeno change and typically low normal BPs continue lasix 40mg po daily and aldactone continue Toprol XL 50mg daily (13) NICM (nonischemic cardiomyopathy): Plan: Compensated Continue Metoprolol 50mg, Spironolactone 12.5mg (14) Asthma: Plan: Chronic. Stable -Albuterol PRN -Continue home O2 as needed (15) ADRYAN (acute kidney injury): Plan: Bactrim stopped,; improved and back to baseline, completed abx as above Plan Dispo- Daughter still wanting to pursue rehab. She states to not inform Gilma until we have a bed and call her in advance when setting up transport so that she doesn't fight staff to go to SNF CM following, no beds this week, search has been expanded to 5 other places Admission and Anticipated Discharge Date Admission Date: May 24, 2022 Subjective Pt states repeatedly she just wants to go home and no one can make her her do anything otherwise. She is eating and drinking, has no other complaints Review of Systems Review of Systems: All systems reviewed & are unremarkable except as noted in HPI & below Physical Exam Constitutional: WD/WN, vitals as above Neck: trachea midline, no thyromegaly Respiratory: normal respiratory effort, lungs clear to auscultation Cardiovascular: RRR, no murmur, no edema Chest (Breasts): Chest: normal inspection of chest Gastrointestinal (Abdomen): normal bowel sounds, soft, nontender, no hepatosplenomegaly Musculoskeletal: Extremities: extremities normal to inspection; no cyanosis and no clubbing Skin: kerlex wraps on legs not removed and c/d/i, crusting on skin between toes Neurologic: moves all extremities and awake; no focal motor deficits Psychiatric: Orientation: alert, oriented to person, oriented to place and cooperative Lymphatic: no lymphedema Results & Data Results & Data ([facility]) Vital Signs (Past 12 Hours) Vital Signs Temp Pulse Resp BP Pulse Ox O2 Del Method 06/12/22 07:30 36.5 C 73 16 99/60 L 99 Room Air Laboratory Results 06/12/22 06/12/22 06/12/22 Range/Units 12:14 08:48 08:14 Sodium 137 (136-145) mmol/L Potassium 3.3 L (3.5-5.1) mmol/L Chloride 99 (98-107) mmol/L Carbon Dioxide 34 H (21-32) mmol/L Anion Gap 4 (3-11) BUN 19 (6-23) mg/dl Creatinine 0.93 (0.6-1.2) mg/dl Est Cr Clr Drug Dosing 64.0 ml/min Est GFR ( Amer) 75.3 ml/min Est GFR (Non-Af Amer) 64.9 ml/min BUN/Creatinine Ratio 20.4 H (10-20) Glucose 123 H (70-99(Fasting)) mg/dl POC Glucose 120 H 127 H (70-99) mg/dl Calcium 9.1 (8.5-10.1) mg/dl Total Bilirubin 0.5 (0.2-1.0) mg/dl AST 17 (13-39) U/L ALT 17 (7-52) U/L Alkaline Phosphatase 130 H (34-104) U/L Total Protein 6.7 (6.0-8.3) gm/dl Albumin 3.2 L (3.4-5.0) gm/dl Globulin 3.5 (2.5-4.0) gm/dl Albumin/Globulin Ratio 0.9 (0.9-2) 06/11/22 06/11/22 Range/Units 20:53 17:11 Sodium (136-145) mmol/L Potassium (3.5-5.1) mmol/L Chloride (98-107) mmol/L Carbon Dioxide (21-32) mmol/L Anion Gap (3-11) BUN (6-23) mg/dl Creatinine (0.6-1.2) mg/dl Est Cr Clr Drug Dosing ml/min Est GFR ( Amer) ml/min Est GFR (Non-Af Amer) ml/min BUN/Creatinine Ratio (10-20) Glucose (70-99(Fasting)) mg/dl POC Glucose 162 H 120 H (70-99) mg/dl Calcium (8.5-10.1) mg/dl Total Bilirubin (0.2-1.0) mg/dl AST (13-39) U/L ALT (7-52) U/L Alkaline Phosphatase (34-104) U/L Total Protein (6.0-8.3) gm/dl Albumin (3.4-5.0) gm/dl Globulin (2.5-4.0) gm/dl Albumin/Globulin Ratio (0.9-2) PG Care Time/CCT Total # of Minutes Spent Total Time Spent with Patient: Total time spent is greater than 50% in coordination of care (as documented) at patient's floor/unit and/or counseling patient: Coding Level of Care Code 09720 Subseq Hosp Care Lvl 1 Diagnoses Pyelonephritis N12 GI bleed K92.2 Hypokalemia E87.6 Bacteremia R78.81 Anemia D64.9 Acute metabolic encephalopathy G93.41 Elevated troponin R77.8 Chronic respiratory failure with hypoxia and hypercapnia J96.11; J96.12 Venous stasis ulcers of both lower extremities I83.019; I83.029; L97.919; L97.929 Seizure disorder G40.909 Diabetes mellitus, type II E11.9 Diabetes mellitus exterminator insulin use: without mcfp use Diabetes mellitus complication status: without complication Hypertension I10 Hypertension type: essential hypertension NICM (nonischemic cardiomyopathy) I42.8 Asthma J45.909 Asthma severity: unspecified severity Asthma persistence: unspecified Asthma complication type: uncomplicated ADRYAN (acute kidney injury) N17.9 (1) Diabetes mellitus, type II Diabetes mellitus exterminator insulin use: without mcfp use Diabetes mellitus complication status: without complication Qualified Code(s): E11.9 - Type 2 diabetes mellitus without complications (2) Hypertension Hypertension type: essential hypertension Qualified Code(s): I10 - Essential (primary) hypertension (3) Asthma Asthma severity: unspecified severity Asthma persistence: unspecified Asthma complication type: uncomplicated Qualified Code(s): J45.909 - Unspecified asthma, uncomplicated
[2022-06-12] MEDS ORDERED: POTASSIUM CHLORIDE CRTAB 20 MEQ TABCR PO STA (15:30)
[2022-06-12] MEDS: POTASSIUM CHLORIDE CRTAB 20 MEQ TABCR PO SCH (20:56)
[2022-06-12] MEDS: ATORVASTATIN 40 MG TAB PO SCH (20:57)
[2022-06-13] MEDS: levETIRAcetam 500 MG TAB PO SCH ×2 (08:23→20:18)
[2022-06-13] MEDS: TOPIRAMATE 100 MG TAB PO SCH ×2 (08:24→20:19)
[2022-06-13] MEDS: SPIRONOLACTONE 12.5 MG TAB PO SCH (08:24)
[2022-06-13] MEDS: METOPROLOL SUCC 50MG EXT REL TAB PO SCH (08:25)
[2022-06-13] MEDS: POTASSIUM CHLORIDE CRTAB 20 MEQ TABCR PO SCH ×2 (08:25→20:19)
[2022-06-13] MEDS: PANTOprazole 40 MG TAB PO SCH ×2 (08:25→20:19)
[2022-06-13] MEDS: ASPIRIN 81 MG ECTAB PO SCH (08:25)
[2022-06-13] MEDS: FUROSEMIDE 40 MG TAB PO SCH (08:25)
[2022-06-13] MEDS: DOCUSATE SODIUM/SENNA 50/8.6MG TAB PO SCH (08:26)
[2022-06-13] MEDS: NYSTATIN POWDER 15GM BTL EXT SCH ×2 (08:26→20:20)
[2022-06-13] MEDS: LANTUS PER UNIT CHARGE SQ SCH ×2 (08:30→20:25)
[2022-06-13] MEDS: INSULIN ASPART PER UNIT SC SCH ×4 (08:30→20:24)
[2022-06-13 08:59] LABS: BUN Creatinine Ratio 20.8 (10-20); Calcium 9.1 mg/dl (8.5-10.1); Est GFR (African American) 72.4 ml/min; Est GFR (Non-African American) 62.5 ml/min; Potassium 4.1 mmol/L (3.5-5.1)
--- NOTE | 2022-06-13 13:26 | Hospitalist Progress Note ---
Date of Service June 13, 2022 Assessment & Plan (1) Pyelonephritis: Plan: Bacteremic pyelonephritisE. coli in blood 05-24-2022; was on p.o. Bactrim after initial given acute kidney injury switched to Rocephin Completed course abx 06/08 with Rocephin. Repeat BCx NGTD WBC wnl, afebrile Awaiting placement (2) GI bleed: Plan: Admitted with Pyelonephritis/Bacteremia, hx HOSEA on oral iron supplements prior to admit and received Venofer IV while inpatient with improvement in hgb to 9.6 However had fall subsequently getting out of bed and developed hematoma/bleeding varicosity/blood loss and subsequently had episode of melanotic stools with drop in hemoglobin 06-03-2022 +fecal occult Given 2u PRBC, continue PPI BID Pt refusing endoscopy, discussed with family and holding off Resumed ASA and no further bleeding reported, hgb stable (3) Hypokalemia: Plan: replaced with po KCl and improved (4) Bacteremia: Plan: 2nd to urinary source resolved (5) Anemia: Plan: Hx HOSEA, to be on PO supplementation at home Hemoglobin is stabilized since Venofer IV x5, then hematoma/varicosity bleeding and requirement of 2u PRBC hgb stable on repeat and improved Does NOT want endoscopy as outlined. consider venofer transfusions as needed given discussion [employer] OFFICER for such Hgb stable on repeat, no further bleeding reported (6) Acute metabolic encephalopathy: Plan: improved, at baseline cognition abx for UTI/pyelo as above patient daughter stating patient being particular how she is usually and indicating back to baseline will need rehab. NOT target per discussion with CM will need continued encouragement given patient DOES not want rehab however is unsafe at home in current condition and family wanting rehab. Awaiting bed (7) Elevated troponin: Plan: At present nothing to suggest ACS, likely 2nd to demand from infection/bacteremia as above ASA 81mg po daily held with bleeding and OR -> resumed Continue Atorvastatin 40mg po daily Continue Metoprolol 50mg po daily NO CHEST PAIN (8) Chronic respiratory failure with hypoxia and hypercapnia: Plan: Baseline 2 L oxygenfollow Titrate to maintain sats/1L at rest typically more than sufficient to prevent worsening hypercapnia as in the past (9) Venous stasis ulcers of both lower extremities: Plan: S/p hematoma and drainage, debridement after had fall at hospital and scraped skin off legs dressing changes as recommended by surgery; changed by wound RN while present during examination Will need continued wound care at follow up (10) Seizure disorder: Plan: Chronic. Stable Continue keppra, topamax hx noncompliance but stated has been getting these at home Levels for both in normal range, no evidence for seizure activity (11) Diabetes mellitus, type II: Plan: Sugars acceptableno change continue basal and bolus insulin (12) Hypertension: Plan: Pressures in good rangeno change and typically low normal BPs continue lasix 40mg po daily and aldactone continue Toprol XL 50mg daily (13) NICM (nonischemic cardiomyopathy): Plan: Compensated Continue Metoprolol 50mg, Spironolactone 12.5mg (14) Asthma: Plan: Chronic. Stable -Albuterol PRN -Continue home O2 as needed (15) ADRYAN (acute kidney injury): Plan: Bactrim stopped,; improved and back to baseline, completed abx as above Plan Dispo- Daughter still wanting to pursue rehab. She states to not inform Gilma until we have a bed and call her in advance when setting up transport so that she doesn't fight staff to go to SNF CM following, no beds this week, search has been expanded to 5 other places Continue PT/OT while inpatient however daughter Kg stated her and son in agreement needing rehab even if able to pivot as patient significant other not at home 23/05 and worried about falls Admission and Anticipated Discharge Date Admission Date: May 24, 2022 Subjective Pt calmer today. Eating lunch. Denies problems. Wants me to call her son. Her son says his mom told him yesterday that she was told by the doctor she could be released and that all that was needed was the "ok" from her son. He wanted to make sure this is not what she's been told and I assured him I would not be discharging her until a SNF is found for her. Review of Systems Review of Systems: All systems reviewed & are unremarkable except as noted in HPI & below Physical Exam Constitutional: WD/WN, vitals as above Eyes: + anicteric sclerae Neck: trachea midline, no thyromegaly Respiratory: normal respiratory effort, lungs clear to auscultation Cardiovascular: RRR, no murmur, no edema Chest (Breasts): Chest: normal inspection of chest Gastrointestinal (Abdomen): normal bowel sounds, soft, nontender, no hepatosplenomegaly Musculoskeletal: Extremities: extremities normal to inspection; no cyanosis and no clubbing Skin: wounds on legs with kerlix in place, c/d/i Neurologic: moves all extremities and awake; no focal motor deficits Psychiatric: Orientation: alert, oriented to person, oriented to place and cooperative Lymphatic: no lymphedema Results & Data Results & Data ([facility]) Vital Signs (Past 12 Hours) Vital Signs Temp Pulse Resp BP Pulse Ox O2 Del Method O2 Flow Rate 06/13/22 09:41 Nasal Cannula 2 06/13/22 07:40 36.6 C 86 20 119/74 98 Nasal Cannula 1 Laboratory Results 06/13/22 06/13/22 06/13/22 Range/Units 12:09 08:01 07:54 Sodium 140 (136-145) mmol/L Potassium 4.1 D (3.5-5.1) mmol/L Chloride 101 (98-107) mmol/L Carbon Dioxide 35 H (21-32) mmol/L Anion Gap 4 (3-11) BUN 20 (6-23) mg/dl Creatinine 0.96 (0.6-1.2) mg/dl Est Cr Clr Drug Dosing 62.0 ml/min Est GFR ( Amer) 72.4 ml/min Est GFR (Non-Af Amer) 62.5 ml/min BUN/Creatinine Ratio 20.8 H (10-20) Glucose 119 H (70-99(Fasting)) mg/dl POC Glucose 145 H 120 H (70-99) mg/dl Calcium 9.1 (8.5-10.1) mg/dl Magnesium 2.0 (1.7-2.4) mg/dl 06/12/22 06/12/22 Range/Units 20:29 17:29 Sodium (136-145) mmol/L Potassium (3.5-5.1) mmol/L Chloride (98-107) mmol/L Carbon Dioxide (21-32) mmol/L Anion Gap (3-11) BUN (6-23) mg/dl Creatinine (0.6-1.2) mg/dl Est Cr Clr Drug Dosing ml/min Est GFR ( Amer) ml/min Est GFR (Non-Af Amer) ml/min BUN/Creatinine Ratio (10-20) Glucose (70-99(Fasting)) mg/dl POC Glucose 126 H 130 H (70-99) mg/dl Calcium (8.5-10.1) mg/dl Magnesium (1.7-2.4) mg/dl PG Care Time/CCT Total # of Minutes Spent Total Time Spent with Patient: Total time spent is greater than 50% in coordination of care (as documented) at patient's floor/unit and/or counseling patient: Coding Level of Care Code 20816 Subseq Hosp Care Lvl 1 Diagnoses Pyelonephritis N12 GI bleed K92.2 Hypokalemia E87.6 Bacteremia R78.81 Anemia D64.9 Acute metabolic encephalopathy G93.41 Elevated troponin R77.8 Chronic respiratory failure with hypoxia and hypercapnia J96.11; J96.12 Venous stasis ulcers of both lower extremities I83.019; I83.029; L97.919; L97.929 Seizure disorder G40.909 Diabetes mellitus, type II E11.9 Diabetes mellitus complication status: without complication Diabetes mellitus nursing home insulin use: without technician terminal and repeater use Hypertension I10 Hypertension type: essential hypertension NICM (nonischemic cardiomyopathy) I42.8 Asthma J45.909 Asthma complication type: uncomplicated Asthma persistence: unspecified Asthma severity: unspecified severity ADRYAN (acute kidney injury) N17.9 (1) Diabetes mellitus, type II Diabetes mellitus complication status: without complication Diabetes mellitus nursing home insulin use: without nursing home use Qualified Code(s): E11.9 - Type 2 diabetes mellitus without complications (2) Hypertension Hypertension type: essential hypertension Qualified Code(s): I10 - Essential (primary) hypertension (3) Asthma Asthma complication type: uncomplicated Asthma persistence: unspecified Asthma severity: unspecified severity Qualified Code(s): J45.909 - Unspecified asthma, uncomplicated
[2022-06-13] MEDS: ATORVASTATIN 40 MG TAB PO SCH (20:19)
[2022-06-14] MEDS: ACETAMINOPHEN 325 MG TAB PO PRN (01:12)
[2022-06-14] MEDS: FUROSEMIDE 40 MG TAB PO SCH (08:28)
[2022-06-14] MEDS: DOCUSATE SODIUM 100 MG CAP PO PRN (08:28)
[2022-06-14] MEDS: METOPROLOL SUCC 50MG EXT REL TAB PO SCH (08:28)
[2022-06-14] MEDS: POTASSIUM CHLORIDE CRTAB 20 MEQ TABCR PO SCH ×2 (08:28→20:38)
[2022-06-14] MEDS: PANTOprazole 40 MG TAB PO SCH ×2 (08:29→20:38)
[2022-06-14] MEDS: ASPIRIN 81 MG ECTAB PO SCH (08:29)
[2022-06-14] MEDS: SPIRONOLACTONE 12.5 MG TAB PO SCH (08:29)
[2022-06-14] MEDS: NYSTATIN POWDER 15GM BTL EXT SCH ×2 (08:30→20:39)
[2022-06-14] MEDS: TOPIRAMATE 100 MG TAB PO SCH ×2 (08:30→20:38)
[2022-06-14] MEDS: levETIRAcetam 500 MG TAB PO SCH ×2 (08:30→20:38)
[2022-06-14] MEDS: DOCUSATE SODIUM/SENNA 50/8.6MG TAB PO SCH (08:32)
[2022-06-14] MEDS: INSULIN ASPART PER UNIT SC SCH ×4 (08:33→20:45)
[2022-06-14] MEDS: LANTUS PER UNIT CHARGE SQ SCH ×2 (08:34→20:44)
--- NOTE | 2022-06-14 16:31 | Hospitalist Progress Note ---
Date of Service June 14, 2022 Assessment & Plan (1) Pyelonephritis: Plan: Bacteremic pyelonephritisE. coli in blood 05-24-2022; was on p.o. Bactrim after initial given acute kidney injury switched to Rocephin Completed course abx 06/08 with Rocephin. Repeat BCx NGTD WBC wnl, afebrile Awaiting placement (2) GI bleed: Plan: Admitted with Pyelonephritis/Bacteremia, hx HOSEA on oral iron supplements prior to admit and received Venofer IV while inpatient with improvement in hgb to 9.6 However had fall subsequently getting out of bed and developed hematoma/bleeding varicosity/blood loss and subsequently had episode of melanotic stools with drop in hemoglobin 06-03-2022 +fecal occult Given 2u PRBC, continue PPI BID Pt refusing endoscopy, discussed with family and holding off Resumed ASA and no further bleeding reported, hgb stable (3) Bacteremia: Plan: 2nd to urinary source resolved (4) Anemia: Plan: Hx HOSEA, to be on PO supplementation at home Hemoglobin is stabilized since Venofer IV x5, then hematoma/varicosity bleeding and requirement of 2u PRBC hgb stable on repeat and improved Does NOT want endoscopy as outlined. 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 NOT target per discussion with CM will need continued encouragement given patient DOES not want rehab however is unsafe at home in current condition and family wanting rehab. Awaiting bed (6) Elevated troponin: Plan: At present nothing to suggest ACS, likely 2nd to demand from infection/bacteremia as above ASA 81mg po daily held with bleeding and OR -> resumed Continue Atorvastatin 40mg po daily Continue Metoprolol 50mg po daily NO CHEST PAIN (7) Chronic respiratory failure with hypoxia and hypercapnia: Plan: Baseline 2 L oxygenfollow Titrate to maintain sats/1L at rest typically more than sufficient to prevent worsening hypercapnia as in the past (8) Venous stasis ulcers of both lower extremities: Plan: S/p hematoma and drainage, debridement after had fall at hospital and scraped skin off legs dressing changes as recommended by surgery; changed by wound RN while present during examination Will need continued wound care at follow up (9) Seizure disorder: Plan: Chronic. Stable Continue keppra, topamax hx noncompliance but stated has been getting these at home Levels for both in normal range, no evidence for seizure activity (10) Diabetes mellitus, type II: Plan: Sugars acceptableno change continue basal and bolus insulin (11) Hypertension: Plan: Pressures in good rangeno change and typically low normal BPs continue lasix 40mg po daily and aldactone continue Toprol XL 50mg daily (12) NICM (nonischemic cardiomyopathy): Plan: Compensated Continue Metoprolol 50mg, Spironolactone 12.5mg (13) Asthma: Plan: Chronic. Stable -Albuterol PRN -Continue home O2 as needed (14) ADRYAN (acute kidney injury): Plan: Bactrim stopped,; improved and back to baseline, completed abx as above Plan Dispo- Daughter still wanting to pursue rehab. She states to not inform Gilma until we have a bed and call her in advance when setting up transport so that she doesn't fight staff to go to SNF CM following, no beds this week, search has been expanded to 5 other places Continue PT/OT while inpatient however daughter Kg stated her and son in agreement needing rehab even if able to pivot as patient significant other not at home 23/05 and worried about falls Discussed care with son Rich on the phone on 06/13 Admission and Anticipated Discharge Date Admission Date: May 24, 2022 Subjective Pt c/o wanting to get cleaned up as she had incontinence to stool. Otherwise asks if she can bring in her motorized chair which I said is totally fine. Review of Systems Review of Systems: All systems reviewed & are unremarkable except as noted in HPI & below Physical Exam Constitutional: WD/WN, vitals as above Eyes: + anicteric sclerae Neck: trachea midline, no thyromegaly Respiratory: normal respiratory effort, lungs clear to auscultation Cardiovascular: RRR, no murmur, no edema Chest (Breasts): Chest: normal inspection of chest Gastrointestinal (Abdomen): normal bowel sounds, soft, nontender, no hepatosplenomegaly Musculoskeletal: Extremities: extremities normal to inspection; no cyanosis and no clubbing Neurologic: moves all extremities and awake; no focal motor deficits Psychiatric: Orientation: alert, oriented to person, oriented to place and cooperative Lymphatic: no lymphedema Results & Data Results & Data ([facility]) Vital Signs (Past 12 Hours) Vital Signs Temp Pulse Resp BP BP Pulse Ox O2 Del Method 06/14/22 15:46 36.6 C 77 20 109/71 100 Nasal Cannula 06/14/22 15:26 Nasal Cannula 06/14/22 08:00 Nasal Cannula 06/14/22 06:59 36.8 C 69 24 113/73 98 Nasal Cannula O2 Flow Rate 06/14/22 15:46 1 06/14/22 15:26 2 06/14/22 08:00 2 06/14/22 06:59 1 PG Care Time/CCT Total # of Minutes Spent Total Time Spent with Patient: Total time spent is greater than 50% in coordination of care (as documented) at patient's floor/unit and/or counseling patient: Coding Level of Care Code 32016 Subseq Hosp Care Lvl 1 Diagnoses Pyelonephritis N12 GI bleed K92.2 Bacteremia R78.81 Anemia D64.9 Acute metabolic encephalopathy G93.41 Elevated troponin R77.8 Chronic respiratory failure with hypoxia and hypercapnia J96.11; J96.12 Venous stasis ulcers of both lower extremities I83.019; I83.029; L97.919; L97.929 Seizure disorder G40.909 Diabetes mellitus, type II E11.9 Diabetes mellitus alf insulin use: without alf use Diabetes mellitus complication status: without complication Hypertension I10 Hypertension type: essential hypertension NICM (nonischemic cardiomyopathy) I42.8 Asthma J45.909 Asthma severity: unspecified severity Asthma persistence: unspecified Asthma complication type: uncomplicated ADRYAN (acute kidney injury) N17.9 (1) Diabetes mellitus, type II Diabetes mellitus rn long term care insulin use: without alf use Diabetes mellitus complication status: without complication Qualified Code(s): E11.9 - Type 2 diabetes mellitus without complications (2) Hypertension Hypertension type: essential hypertension Qualified Code(s): I10 - Essential (primary) hypertension (3) Asthma Asthma severity: unspecified severity Asthma persistence: unspecified Asthma complication type: uncomplicated Qualified Code(s): J45.909 - Unspecified asthma, uncomplicated
[2022-06-14] MEDS: ATORVASTATIN 40 MG TAB PO SCH (20:38)
[2022-06-15] MEDS: METOPROLOL SUCC 50MG EXT REL TAB PO SCH (08:34)
[2022-06-15] MEDS: FUROSEMIDE 40 MG TAB PO SCH (08:34)
[2022-06-15] MEDS: POTASSIUM CHLORIDE CRTAB 20 MEQ TABCR PO SCH ×2 (08:34→20:15)
[2022-06-15] MEDS: TOPIRAMATE 100 MG TAB PO SCH ×2 (08:34→20:15)
[2022-06-15] MEDS: levETIRAcetam 500 MG TAB PO SCH ×2 (08:34→20:14)
[2022-06-15] MEDS: SPIRONOLACTONE 12.5 MG TAB PO SCH (08:34)
[2022-06-15] MEDS: DOCUSATE SODIUM/SENNA 50/8.6MG TAB PO SCH (08:35)
[2022-06-15] MEDS: PANTOprazole 40 MG TAB PO SCH ×2 (08:35→20:15)
[2022-06-15] MEDS: ASPIRIN 81 MG ECTAB PO SCH (08:35)
[2022-06-15] MEDS: INSULIN ASPART PER UNIT SC SCH ×4 (08:36→20:58)
[2022-06-15] MEDS: LANTUS PER UNIT CHARGE SQ SCH ×2 (08:36→20:58)
[2022-06-15] MEDS: NYSTATIN POWDER 15GM BTL EXT SCH ×2 (08:36→20:14)
--- NOTE | 2022-06-15 17:29 | Hospitalist Progress Note ---
Date of Service June 15, 2022 Assessment & Plan (1) Pyelonephritis: Plan: Bacteremic pyelonephritisE. coli in blood 05-24-2022; was on p.o. Bactrim after initial given acute kidney injury switched to Rocephin Completed course abx 06/08 with Rocephin. Repeat BCx NGTD WBC wnl, afebrile Awaiting placement (2) GI bleed: Plan: Admitted with Pyelonephritis/Bacteremia, hx HOSEA on oral iron supplements prior to admit and received Venofer IV while inpatient with improvement in hgb to 9.6 However had fall subsequently getting out of bed and developed hematoma/bleeding varicosity/blood loss and subsequently had episode of melanotic stools with drop in hemoglobin 06-03-2022 +fecal occult Given 2u PRBC, continue PPI BID Pt refusing endoscopy, discussed with family and holding off Resumed ASA and no further bleeding reported, hgb stable as of last check (3) Bacteremia: Plan: 2nd to urinary source resolved (4) Anemia: Plan: Hx HOSEA, to be on PO supplementation at home Hemoglobin is stabilized since Venofer IV x5, then hematoma/varicosity bleeding and requirement of 2u PRBC hgb stable on repeat and improved Does NOT want endoscopy as outlined. 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 (5) Elevated troponin: Plan: At present nothing to suggest ACS, likely 2nd to demand from infection/bacteremia as above ASA 81mg po daily held with bleeding and OR -> resumed Continue Atorvastatin 40mg po daily Continue Metoprolol 50mg po daily NO CHEST PAIN (6) Chronic respiratory failure with hypoxia and hypercapnia: Plan: Baseline 2 L oxygenfollow Titrate to maintain sats/1L at rest typically more than sufficient to prevent worsening hypercapnia as in the past (7) Venous stasis ulcers of both lower extremities: Plan: S/p hematoma and drainage, debridement after had fall at hospital and scraped skin off legs dressing changes as recommended by surgery; changed by wound RN while present during examination Will need continued wound care at follow up (8) Seizure disorder: Plan: Chronic. Stable Continue keppra, topamax hx noncompliance but stated has been getting these at home Levels for both in normal range, no evidence for seizure activity (9) Diabetes mellitus, type II: Plan: Sugars acceptableno change continue basal and bolus insulin (10) Hypertension: Plan: Pressures in good rangeno change and typically low normal BPs continue lasix 40mg po daily and aldactone continue Toprol XL 50mg daily (11) NICM (nonischemic cardiomyopathy): Plan: Compensated Continue Metoprolol 50mg, Spironolactone 12.5mg (12) Asthma: Plan: Chronic. Stable -Albuterol PRN -Continue home O2 as needed (13) Toxic encephalopathy: Plan: Likely secondary to bacteremic UTI; improved, at baseline cognition will need continued encouragement given patient DOES not want rehab however is unsafe at home in current condition and family wanting rehab. Awaiting bed; Per prior notes was deemed not decisional Plan Dispo- Family still wanting to pursue rehab. She states to not inform Gilma until we have a bed and call her in advance when setting up transport so that she doesn't fight staff to go to SNF CM following Continue PT/OT while inpatient however daughter Kg stated her and son in agreement needing rehab even if able to pivot as patient significant other not at home 23/05 and worried about falls Discussed care with son Rich on the phone on 06/13 Admission and Anticipated Discharge Date Admission Date: May 24, 2022 Subjective Follow-up of original presentation with mental status changes, bacteremic UTIoverall doing better; no complaints as such Physical Exam Physical Exam: Constitutional and general: No acute distress, looks biologic age Head and face: No puffiness, atraumatic Eyes: No scleral icterus, extraocular movements normal Neck: Supple, no JVD Musculoskeletal: No acute joint swelling, no bony abnormalities Skin/dermatologic/integument: No rash, no purpura Hematologic and lymphatic: pallor +, no petechia Gastrointestinal/abdomen: distended, soft, nonacute Neurologic: Cranial nerves intact, nonfocal Cardiovascular: Heart rhythm regular, no rub, no murmur, no gallop Respiratory: Chest movements equal, no use of accessory muscles, no adventitious sounds Extremities: Status postdebridement and dressed wounds Results & Data Results & Data ([facility]) Vital Signs (Past 12 Hours) Vital Signs Temp Pulse Resp BP Pulse Ox O2 Del Method O2 Flow Rate 06/15/22 15:12 36.5 C 80 20 116/72 98 Nasal Cannula 1 06/15/22 10:58 Nasal Cannula 2 06/15/22 08:08 36.6 C 68 14 104/71 98 Nasal Cannula 1 Laboratory Results Laboratory Results - last 24 hr 06/14/22 06/15/22 06/15/22 20:30 08:07 12:06 POC Glucose 170 H 157 H 168 H SARS-CoV-2, RNA, NAAT 06/15/22 06/15/22 15:48 16:59 POC Glucose 142 H SARS-CoV-2, RNA, NAAT NEGATIVE PG Care Time/CCT Total # of Minutes Spent Total Time Spent with Patient: Total time spent is greater than 50% in coordination of care (as documented) at patient's floor/unit and/or counseling patient: Coding Level of Care Code 27346 Subseq Hosp Care Lvl 2 Diagnoses Pyelonephritis N12 GI bleed K92.2 Bacteremia R78.81 Anemia D64.9 Elevated troponin R77.8 Chronic respiratory failure with hypoxia and hypercapnia J96.11; J96.12 Venous stasis ulcers of both lower extremities I83.019; I83.029; L97.919; L97. 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
[2022-06-15] MEDS: ATORVASTATIN 40 MG TAB PO SCH (20:14)
[2022-06-15 23:26] VITALS: O2SAT 99
[2022-06-16 07:06] VITALS: BP 113/75; PULSE 68; TEMP 97.3
[2022-06-16] MEDS: ASPIRIN 81 MG ECTAB PO SCH (08:13)
[2022-06-16] MEDS: levETIRAcetam 500 MG TAB PO SCH (08:15)
[2022-06-16] MEDS: METOPROLOL SUCC 50MG EXT REL TAB PO SCH (08:15)
[2022-06-16] MEDS: FUROSEMIDE 40 MG TAB PO SCH (08:15)
[2022-06-16] MEDS: NYSTATIN POWDER 15GM BTL EXT SCH (08:16)
[2022-06-16] MEDS: PANTOprazole 40 MG TAB PO SCH (08:16)
[2022-06-16] MEDS: SPIRONOLACTONE 12.5 MG TAB PO SCH (08:17)
[2022-06-16] MEDS: POTASSIUM CHLORIDE CRTAB 20 MEQ TABCR PO SCH (08:17)
[2022-06-16] MEDS: TOPIRAMATE 100 MG TAB PO SCH (08:18)
[2022-06-16] MEDS: INSULIN ASPART PER UNIT SC SCH ×2 (08:40→14:00)
[2022-06-16] MEDS: LANTUS PER UNIT CHARGE SQ SCH (08:41)
[2022-06-16] MEDS: DOCUSATE SODIUM/SENNA 50/8.6MG TAB PO SCH (08:43)
--- NOTE | 2022-06-16 11:25 | Discharge Summary ---
Date of Service June 16, 2022 Admission HPI Per Admitting Provider Gilma Toro is a 62yo female with history of DM, Seizure, Asthma, Dementia. She lives at home with a roommate. She presents today with family with complaint of 2-3 days of worsening cognition - increased sleepiness and confusion as well as decreased mobility and activity. Patient also reported to be sweating much and nausea. No report of fever, chills, chest pain, cough or SOB. No additional complaints at this time. ER Course: Cefepime, Daptomycin, Zofran, Pepcid Principal Diagnosis Urinary tract infection, toxic encephalopathy, gram-negative bacteremia Discharge Exam Constitutional and general: No acute distress, looks biologic age Head and face: No puffiness, atraumatic Eyes: No scleral icterus, extraocular movements normal Neck: Supple, no JVD Musculoskeletal: No acute joint swelling, no bony abnormalities Skin/dermatologic/integument: No rash, no purpura Hematologic and lymphatic: pallor +, no petechia Gastrointestinal/abdomen: distended, soft, nonacute Neurologic: Cranial nerves intact, nonfocal Cardiovascular: Heart rhythm regular, no rub, no murmur, no gallop Respiratory: Chest movements equal, no use of accessory muscles, no adventitious sounds Extremities: Status postdebridement and dressed wounds Vital Signs Temp Pulse Resp BP BP Pulse Ox O2 Del Method 06/16/22 08:03 Nasal Cannula 06/16/22 07:05 36.3 C L 68 18 113/75 99 Nasal Cannula 06/15/22 23:25 36.8 C 72 20 103/67 99 Nasal Cannula 06/15/22 19:48 Nasal Cannula 06/15/22 15:12 36.5 C 80 20 116/72 98 Nasal Cannula O2 Flow Rate 06/16/22 08:03 1 06/16/22 07:05 1 06/15/22 23:25 1 06/15/22 19:48 2 06/15/22 15:12 1 Intake and Output 06/15/22 06/16/22 06/16/22 22:59 06:59 14:59 Intake Total 400 / 700 300 / 700 Output Total 725 / 1350 625 / 1350 Balance -325 / -650 -325 / -650 Intake: Oral 400 / 700 300 / 700 Output: Urine Amount (Catheter) 725 / 1350 625 / 1350 External 725 / 1350 625 / 1350 Other: Weight 90.6 kg Discharge Data Allergies Allergy/AdvReac Type Severity Reaction Status Date / Time acetaminophen Allergy Severe Unresponsiv Verified 05/24/22 18:01 [From Tylenol-Codeine] e ceftaroline fosamil Allergy Mild ITCHING Verified 05/24/22 18:01 HANDS latex Allergy Mild Unknown Verified 05/24/22 18:01 SABINE Inhibitors Allergy Unknown Unknown Verified 05/24/22 18:01 codeine Allergy Unknown Unknown Verified 05/24/22 18:01 erythromycin base Allergy Unknown Unknown Verified 05/24/22 18:01 Iodinated Contrast Media Allergy Unknown Unknown Verified 05/24/22 18:01 Iodine and Iodide Containing Allergy Unknown Unknown Verified 05/24/22 18:01 Produc morphine Allergy Unknown Unknown Verified 05/24/22 18:01 Penicillins AdvReac Intermediate MAKES HER Verified 05/24/22 18:01 "FUNNY IN THE HEAD" Consultations 05/24/22 18:48 ED Decision to Admit Stat 05/31/22 15:13 Consult General Surgery Routine Procedures Performed Operation Date: 06/01/22 12:10 Actual Procedures p Bilateral Lower Extremity Hematoma Drainage x4, Excisional Debridement of Lower extremity wounds x4 (Bilateral) - Santos Jones, Ordered Studies 05/24/22 17:55 CT abd pelvis wo con Stat 05/24/22 18:18 CT head/brain wo con Stat Hospital Course (1) Pyelonephritis: Bacteremic pyelonephritisE. coli in blood 05-24-2022; was on p.o. Bactrim after initial given acute kidney injury switched to Rocephin Completed course abx 06/08 with Rocephin. Repeat BCx NGTD Stable for discharge from this perspective (2) GI bleed: Admitted with Pyelonephritis/Bacteremia, hx HOSEA on oral iron supplements prior to admit and received Venofer IV while inpatient with improvement in hgb to 9.6 However had fall subsequently getting out of bed and developed hematoma/bleeding varicosity/blood loss and subsequently had episode of melanotic stools with drop in hemoglobin 06-03-2022 +fecal occult Given 2u PRBC, continue PPI BID Pt refusing endoscopy, discussed with family and holding off Resumed ASA and no further bleeding reported, hgb stable as of last check-weekly CBC; resume p.o. iron (3) Bacteremia: 2nd to urinary source resolved (4) Anemia: Hx HOSEA, to be on PO supplementation at home Hemoglobin is stabilized since Venofer IV x5, then hematoma/varicosity bleeding and requirement of 2u PRBC hgb stable on repeat and improved Does NOT want endoscopy as outlined. consider venofer transfusions as needed given discussion ECD for such Weekly CBC; outpatient follow-up (5) Elevated troponin: At present nothing to suggest ACS, likely 2nd to demand from infectio n/bacteremia as above ASA 81mg po daily held with bleeding and OR -> resumed Continue Atorvastatin 40mg po daily Continue Metoprolol 50mg po daily NO CHEST PAIN (6) Chronic respiratory failure with hypoxia and hypercapnia: Baseline 2 L oxygenfollow Titrate to maintain sats/1L at rest typically more than sufficient to prevent worsening hypercapnia as in the past (7) Venous stasis ulcers of both lower extremities: S/p hematoma and drainage, debridement after had fall at hospital and scraped skin off legs dressing changes as recommended by surgery; Follow-up in wound care clinic after discharge (8) Seizure disorder: Chronic. Stable Continue keppra, topamax hx noncompliance but stated has been getting these at home Levels for both in normal range, no evidence for seizure activity (9) Diabetes mellitus, type II: Resume prior to admission regimen at discharge (10) Hypertension: Pressures in good rangeno change and typically low normal BPs continue lasix 40mg po daily and aldactone continue Toprol XL 50mg daily (11) NICM (nonischemic cardiomyopathy): Compensated Continue Metoprolol 50mg, Spironolactone 12.5mg (12) Asthma: Chronic. Stable -Albuterol PRN -Continue home O2 as needed Plan Dispo- Considered not decisional according to prior notes; family interested in SNFstable for discharge today Total Time Total Time Spent Total Time Spent (In Minutes): 32 Discharge Plan Discharge Items Patient Disposition: Transfer Custodial Fac Reason For Visit: CONFUSION, UTI Discharge Diagnosis: Urinary tract infection, toxic encephalopathy, gram-negative bacteremia Activity: As commented below Activity Comment: As tolerated Non-emergency contact: Primary Care Provider Call non-emergency contact if: your symptoms worsen Follow-up/Referrals: Trisha Castillo MD [Primary Care Provider] - (1 week after discharge, prolonged hospital stay) Diet: Carb Consistent or DM2 and Heart Healthy Addtl Attending Provider Instructions: Daily lower extremity wound dressings withxeroform, ABD gauze, and kerlex wrapping; follow-up in wound center; Should get CBC, BMP, magnesium every Tuesday Pending Studies at Discharge: No Stand-Alone Forms: My [facility] Skilled Items Patient informed of condition?: Yes DNR: No Discharge Level of Care: Skilled Communicable Disease: Yes Discharge Prognosis: Stable Lines: None Urinary Catheter: No Medications and DC Order Prescriptions: New acetaminophen 325 mg Tablet 650 mg PO Q4H PRN (Reason: pain) Qty: 30 0RF potassium chloride 20 mEq Tablet,Er Particles/Crystals 20 meq PO BID Qty: 14 0RF docusate sodium 100 mg Capsule 100 mg PO BID PRN (Reason: constipation) Qty: 30 0RF sennosides-docusate sodium [Senokot-S] 8.6-50 mg Tablet 1 tab PO QAM Qty: 14 0RF pantoprazole 40 mg Tablet,Delayed Release (Dr/Ec) 40 mg PO BID Qty: 60 0RF Continued topiramate [Topamax] 100 mg tablet 100 mg PO UD albuterol sulfate 90 mcg/actuation HFA aerosol inhaler 2 puffs INH QID PRN (Reason: Shortness Of Breath Or Wheezing) nitroglycerin 0.4 mg tablet, sublingual 0.4 mg SL Q5M PRN (Reason: Chest Pain) furosemide [Lasix] 40 mg Tablet 40 mg PO QAM metoprolol succinate [Toprol XL] 50 mg tablet extended release 24 hr 50 mg PO DAILY Qty: 30 0RF spironolactone 25 mg Tablet 12.5 mg PO DAILY Qty: 0 0RF cyanocobalamin (vitamin B-12) [Vitamin B-12] 1,000 mcg Tablet 1,000 mcg PO DAILY aspirin 81 mg Tablet,Delayed Release (Dr/Ec) 81 mg PO DAILY cyanocobalamin (vitamin B-12) 1,000 mcg/mL Solution 1,000 mcg IM Q30D ferrous sulfate 325 mg (65 mg iron) Tablet 325 mg PO DAILY nystatin 100,000 unit/gram Powder 1 applic TOPICAL BID levetiracetam 1,000 mg tablet 1,000 mg PO BID Janumet 50-500 mg tablet 1 tab PO DAILY atorvastatin 40 mg tablet 40 mg PO HS Adult Multivitamin Gummies 200 mcg Tablet,Chewable 2 tab PO DAILY Discharge Orders: Discharge Order (Routine); Ordered 06/16/22 Ordered By: Shari White/Other Patient Handouts: High Blood Sugar (Hyperglycemia), Hypoglycemia (Low Blood Sugar), Managing Type 2 Diabetes Admission Data Admit Date/Time: 05/24/22 20:00 Attending Provider: Shari Guzman Admit Provider: Cynthia Lopez Primary Care Provider: Trisha Castillo Other Providers: [facility] ; [facility] ; [facility], ; Cynthia Lopez ; Zeeshan Alarcon ; Jimena Schaefer Coding Level of Care Code D/C DAY MANAGEMENT >30 MINS Diagnoses Pyelonephritis N12 GI bleed K92.2 Bacteremia R78.81 Anemia D64.9 Elevated troponin R77.8 Chronic respiratory failure with hypoxia and hypercapnia J96.11; J96.12 Venous stasis ulcers of both lower extremities I83.019; I83.029; L97.919; L97.929 Seizure disorder G40.909 Diabetes mellitus, type II E11.9 Diabetes mellitus complication status: without complication Diabetes mellitus technician terminal and repeater insulin use: without prison use Hypertension I10 Hypertension type: essential hypertension NICM (nonischemic cardiomyopathy) I42.8 Asthma J45.909 Asthma complication type: uncomplicated Asthma persistence: unspecified Asthma severity: unspecified severity
== END 2022-06-16 15:44 | DRG 673 ==
LOC: ED 15:04 → EDINP 20:00 → SUATTDRO 20:00 → 3W 23:06